=== PATIENT | female | born 2000 | race Caucasian/White ===

== ENCOUNTER 2021-10-06 14:57 | Emergency (ER) | payer OTHER, SELFPAY ==
--- NOTE | ~2021-10-06 | XR_ITS ---
EXAMINATION: XR chest 2V DATE: 10/06/2021 17:28 INDICATION: Shortness of breath TECHNIQUE: PA and lateral views of the chest are obtained. COMPARISON: None available FINDINGS: The lungs are free of acute opacities. No pleural effusion or pneumothorax. The cardiomedia stinal silhouette is normal. The visualized bones and soft tissues are unremarkable. IMPRESSION: 1. No acute cardiopulmonary abnormality. Reviewed, dictated and finalized at location B.
[2021-10-06 15:17] VITALS: BP 133/65; PULSE 76; RESP 20; TEMP 37.2; O2SAT 100
--- NOTE | 2021-10-06 15:20 | ECG_ITS ---
Measurements Intervals [place] Rate: 68 P: 46 ME: 174 QRS: 19 QRSD: 90 T: -1 QT: 356 QTc: 379 Interpretive Statements SINUS RHYTHM WITH SINUS ARRHYTHMIA LOW QRS VOLTAGE IN PRECORDIAL LEADS BORDERLINE ST-T WAVE ABNORMALITY- INFERIOR LEADS BORDERLINE ECG Electronically Signed On 10-06-2021 15:32:28 CDT by Andrew Zhang D.O.
[2021-10-06 15:35] LABS: Basophils Absolute Auto 0.1 K/mm3 (0.0-0.1); Basophils Percent Auto 0.5 % (0.2-1.2); Eosinophils Absolute Auto 0.1 K/mm3 (0-0.3); Eosinophils Percent Auto 1.3 % (0-4.4); Hematocrit 39.8 % (37.0-47.0); Hemoglobin 13.5 g/dL (12.0-15.0); Immature Granulocyte Absolute 0.04 K/mm3 (0.00-0.031); Immature Granulocyte Percent A 0.4 % (0-0.5); Lymphocytes Absolute Auto 1.87 K/mm3 (0.9-3.2); Lymphocytes Percent Auto 17.8 % (18.3-44.2); Mean Corpuscular HGB Conc 33.9 g/dl (32-36); Mean Corpuscular Hemoglobin 33.2 pg (26-34); Mean Corpuscular Volume 97.8 fl (80-100); Mean Platelet Volume 9.7 fl (7.4-10.4); Monocytes Absolute Auto 1.1 K/mm3 (0.1-0.6); Monocytes Percent Auto 10.6 % (2.6-8.5); Neutrophils Absolute Auto 7.3 K/mm3 (1.3-6.7); Neutrophils Percent Auto 69.4 % (45.5-73.1); Platelet Count Result 345 k/mm3 (150-375); Red Blood Count 4.07 M/mm3 (4.2-5.4); Red Cell Distribution Width 12.2 % (11.5-14.5); White Blood Count 10.5 K/mm3 (4.5-10.0)
--- NOTE | 2021-10-06 15:45 | ED.DIZZY ---
HPI - Dizziness General Chief Complaint: Dizziness Stated Complaint: sob, weakness Time Seen by Provider: 10/06/21 15:35 History of Present Illness HPI Narrative: 20-year-old female presents the emergency room with intermittent episodes of dizziness, lightheadedness, chest pressure, shortness of breath, and rashes on lower extremities. Patient states she has been experiencing intermittent left chest pain that is worse with activity for 6 months, and has been told to follow-up with cardiology. Patient is status post thyroidectomy and is on Synthroid. Patient was recently seen in her primary care's office for her symptoms, and was told to follow-up with rheumatology due to positive FLORENCIO lab test. Patient denies any new or changes to her existing medications. Denies fever. Patient states there is no alleviating or aggravating actors to her dizziness. Denies head injury. Related Data Allergies Allergy/AdvReac Type Severity Reaction Status Date / Time adhesive tape Allergy Intermediate Rash Verified 10/06/21 15:49 lactose AdvReac Intermediate Diarrhea Verified 10/06/21 15:49 Review of Systems Review of Systems: CONSTITUTIONAL: Denies fever, chills, or sweats. EYES: Denies visual changes, redness, or discharge. ENT: Denies rhinorrhea, congestion, sore throat, or otalgia. CARDIOVASCULAR: Reports chest pain RESPIRATORY: Denies cough or dyspnea. GASTROINTESTINAL: Denies abdominal pain, nausea, vomiting, or diarrhea. GENITOURINARY: Denies dysuria or hematuria. SKIN: Reports rash on lower extremities MUSCULOSKELETAL: Denies back pain, joint pain, or myalgia. NEUROLOGIC: Reports dizziness PSYCHIATRIC: Reports anxiety and depression. Exam Narrative: GENERAL: Well-appearing, well-nourished, no physical limitations, and in no acute distress. HEAD: Normocephalic, atraumatic. EYES: Conjunctivae normal, PERRLA and EOMI. ENT: External nose normal, Nares clear, no rhinorrhea or epistaxis. Mucous membranes moist. Oropharynx without tonsillar hypertrophy exudate or other lesions. External ears normal, bilateral TMs normal bilaterally NECK: Supple. No meningeal signs. No adenopathy or masses. No carotid bruits or JVD CHEST: Clear to auscultation. No respiratory distress. No wheezes rales or rhonchi. No tenderness. HEART: Regular rate and rhythm. No murmur heard. Normal peripheral pulses EXTREMITIES: Normal range of motion. No edema. No clubbing or cyanosis SKIN: Lenticular rash of bilateral lower extremities NEURO: No focal deficits. Alert and oriented x3. MAEW. CN's II-XI intact bilaterally, normal gait PSYCH: Cooperative. Tearful. Normal mood and affect. Course Vital Signs Vital signs: Vital Signs Temperature 37.2 C 10/06/21 15:17 Pulse Rate 76 10/06/21 15:17 Respiratory Rate 20 10/06/21 15:17 Blood Pressure 133/65 10/06/21 15:17 Pulse Oximetry 100 10/06/21 15:17 Oxygen Delivery Room Air 10/06/21 15:17 Temperature 37.2 C 10/06/21 15:17 Pulse Rate 67 10/06/21 19:28 Respiratory Rate 16 10/06/21 19:28 Blood Pressure 121/91 H 10/06/21 19:28 Pulse Oximetry 96 10/06/21 19:28 Oxygen Delivery Room Air 10/06/21 15:17 MDM - Dizziness MDM Narrative Medical decision making narrative: 89-[id number]-year-old female presented the emergency room with multiple chronic complaints. Dizziness is more consistent with a peripheral cause. EKG showed no signs of ischemic disease. Chest there is no history of trauma, no red flag features concerning for central vertigo. 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 Chest x-ray showed no acute cardiopulmonary findings. Troponin was negative. Electrolytes showed no concern for hepatobiliary disease, kidney disease. Lab Data Result diagrams: 10/06/21 15:27 10/06/21 15:27 Labs: Lab Results 10/06/21 10/06/21 10/06/21 Range/Units 15:27 15:27 15:27 WBC 10.5
[2021-10-06 15:46] LABS: Alanine Aminotransferase 18 U/L (6-35); Albumin Level 4.4 g/dL (3.5-5.1); Alkaline Phosphatase 43 U/L (38-126); Anion Gap 7 mmol/L (8-16); Aspartate Amino Transferase 24 U/L (14-36); Bilirubin,Total 0.7 mg/dL (0.2-1.3); Blood Urea Nitrogen 14 mg/dL (7-17); Calcium 8.1 mg/dL (8.4-10.2); Carbon Dioxide 25 mmol/L (22-30); Chloride 106 mmol/L (98-107); Estimated CRCL calculation 110 ml/min; Estimated Glomerular Filt Rate > 60; Glucose 105 mg/dL (65-110); Potassium 4.1 mmol/L (3.4-5.0); Sodium 138 mmol/L (137-145)
[2021-10-06 17:09] LABS: CRP < 0.5 mg/dL (<1.0)
[2021-10-06 17:09] LABS: Partial Thromboplastin Time 25.8 SECONDS (22.3-36.8); Prothrombin Time 12.5 Seconds (11.1-14.7)
[2021-10-06 17:13] VITALS: BP 123/77; PULSE 84; RESP 19; O2SAT 97
[2021-10-06 17:34] LABS: Erythrocyte Sedimentation Rate 14 mm/hr (0-20)
[2021-10-06 17:41] LABS: Appearance Urine Clear (Clear); Bilirubin Urine Negative (Negative); Blood Urine Negative (Negative); Color Urine Yellow (Yellow); Glucose Urine UA Negative (Negative); Ketones Urine Negative (Negative); Leukocyte Esterase Ur Negative LEU/UL (Negative); Nitrate Urine Negative (Negative); Protein Urine Negative (Negative); Specific Grav Ur 1.015 (1.001-1.035); Urobilinogen Urine 0.2 mg/dL (<2.0)
[2021-10-06 17:42] LABS: Add Urine Microscopic? NO
[2021-10-06 18:07] LABS: Troponin I < 0.012 ng/mL (0.000-0.034)
[2021-10-06 19:28] VITALS: BP 121/91; PULSE 67; RESP 16; O2SAT 96
== END 2021-10-06 19:19 | disposition home or self-care (01) ==
PROVIDERS: Emergency Medicine; Emergency Provider Nurse Practitioner Family; PCP Family Medicine
DX: R42 Dizziness and giddiness (principal); R07.9 Chest pain, unspecified
CPT/HCPCS: 36415; 71046; 80053; 81003; 81025; 84443; 84484; 85025; 85610; 85652; 85730; 86140; 93005; 99284

== ENCOUNTER 2024-05-29 13:01 | Outpatient (CLI) | payer OTHER, SELFPAY | END 2024-05-29 13:02 | disposition home or self-care (01) | LOC: ANHSURGERY 13:06 | PROVIDERS: PCP Family Medicine; Visit Provider Obstetrics & Gynecology | DX: Z01.818 Encounter for other preprocedural examination (principal); I10 Essential (primary) hypertension; R00.0 Tachycardia, unspecified; N94.6 Dysmenorrhea, unspecified | CPT/HCPCS: 36415; 86850; 86900; 86901; 93005 ==

== ENCOUNTER 2024-06-06 01:09 | Day surgery (SDC) | payer OTHER, SELFPAY ==
[2024-05-26 15:44] VITALS: BMI 40.6
--- NOTE | 2024-05-26 15:58 | PC.NURSE ---
Report to the Outpatient Waiting Room, entrance under the green pavilion located off [facility], at time __0830am on date ___06/06/24 ____. Planned Procedure Time: _1030am .? Time changes happen often and if your time is changed the preop area will call you the afternoon before. - You and your visitor will be asked to self-screen and do not enter if you have any COVID symptoms. Please call surgeon if you need to reschedule. - A mask is optional within the hospital at this time. Patients may have clear liquids (water, carbonated beverages, clear teas, apple juice) until 3 hours prior to surgery with a maximum of 20 ounces. - No food from midnight until time of surgery and no smoking, or chewing tobacco (or any form of nicotine). No chewing gum, candy or mints. (0730am) - Take only the following medications with a SIP of water on the morning of surgery: Amlodipine, Atenolol, Levothyroxine. DO NOT STOP ANY OF YOUR OTHER PRESCRIPTION MEDICATIONS PRIOR TO SURGERY EXCEPT THE FOLLOWING Hold all vitamins and supplements for 3 days per anesthesiologist. Medications to discontinue per physician ____None Date to take last dose____None Please no make-up, nail maltese, hairspray, perfume, deodorant, or body powder the day of surgery.? No jewelry (including any body piercings) or valuables the day of surgery, leave them at home.? Please take a shower or bath the night before, or the morning of, surgery with an antibacterial soap.? Wear comfortable, loose fitting clothing.? - Jewelry must be removed prior to entering the operating room.? Rings and piercings that are not removed may be cut off. - The hospital will not accept responsibility for valuables.? - Please leave all valuables, including medications, at home the day of surgery. If you are going home after surgery, a licensed limo driver must drive you home.? - NO public transportation without another adult if you receive anesthesia. - We recommend that an adult stay with you for 24 hours following discharge. - We also recommend that you do not drive, make important decision, drink alcoholic beverages, or take any drugs that were not prescribed by your health care provider for at least 24 hours after your discharge time. Follow any additional instructions given to you from your surgeon. Telephone instructions given to __Patient and asked if any additional questions and then verbalized understanding. Patient advised to call surgeon office or pre surgery nurse liaison [phone] if any additional questions.
--- NOTE | 2024-06-04 07:13 | PM.IMHP ---
H&P: HPI History of Present Illness Date/Time: 06/04/24 07:13 Chief Complaint: The patient complains of dyspareunia pelvic pain and dysmenorrhea Narrative: This is a 23-year-old 0 admitted for diagnostic laparoscopy secondary to pelvic pain. She does take thyroid medicine but has been euthyroid. She had an ultrasound which showed a fair amount of clear fluid and she has been in and out of the emergency department. She is frustrated once no is going she will undergo diagnostic laparoscopy. Risks and benefits were reviewed including but exclusive of , aspiration pneumonia, bleeding, transfusion, perforation injury to bowel, bladder, ureters, or other internal organs with need for open laparotomy repair. She received the AC handout entitled laparoscopy. She had all questions answered. She asked to proceed. Review of Systems Review of Systems: CONSTITUTIONAL: Denies fever, chills, or sweats. EYES: Denies visual changes, redness, or discharge. ENT: Denies rhinorrhea, congestion, sore throat, or otalgia. CARDIOVASCULAR: Reports chest pain RESPIRATORY: Denies cough or dyspnea. GASTROINTESTINAL: Denies abdominal pain, nausea, vomiting, or diarrhea. GENITOURINARY: Denies dysuria or hematuria. SKIN: Reports rash on lower extremities MUSCULOSKELETAL: Denies back pain, joint pain, or myalgia. NEUROLOGIC: Reports dizziness PSYCHIATRIC: Reports anxiety and depression. [facility] Social History Social History Smoking packs per day: 1 Smoking cigarettes per day: 20.0 Years smoked: 4 Smoking pack-years: 4.00 Smoking status: Former smoker Tobacco type: cigarettes Smoking end date: 04/02/20 Additional smoking assessment comments: Vapes now, vrs smoking Alcohol intake: never Substance use type: marijuana and other Other substance usage details: Vapes and Marijuana smokes daily Living arrangements: with family Additional living arrangements comments: Brother Spiritual care concerns: No Meds Home Medications and Allergies Home Medications ?Medication ?Instructions ?Recorded ?Confirmed ?Type amlodipine 10 mg tablet 10 mg PO DAILY 05/26/24 05/26/24 History atenolol 50 mg tablet 50 mg PO Q24H 05/26/24 05/26/24 History levothyroxine 200 mcg tablet 200 mcg PO DAILY 05/26/24 05/26/24 History levothyroxine 25 mcg tablet 25 mcg PO DAILY 05/26/24 05/26/24 History naproxen 500 mg tablet 500 mg PO Q8H 05/26/24 05/26/24 History olanzapine 7.5 mg tablet 7.5 mg PO QPM 05/26/24 05/26/24 History sertraline 100 mg tablet 100 mg PO Q24H 05/26/24 05/26/24 History Allergies Allergy/AdvReac Type Severity Reaction Status Date / Time adhesive tape Allergy Intermediate Rash Verified 05/26/24 15:38 lactose AdvReac Intermediate Diarrhea Verified 05/26/24 15:38 Exam Const: General: cooperative, comfortable and obese Orientation/consciousness: oriented to person, oriented to place and oriented to time HENMT: Head: normal to inspection Resp: Effort & Inspection: normal respiratory effort Cardio: Rate: regular rate Rhythm: regular rhythm Heart sounds: S1 normal heart sound present and S2 normal heart sound present GI: Inspection: normal to inspection : External Female Exam: normal external appearance Speculum Exam - Vagina: normal appearance of the vagina Speculum Exam - Cervix: normal appearance of the cervix Bimanual exam- vagina & uterus: Cervical tenderness present Bimanual Exam- Adnexa, other: tender bilaterally Assessment and Plan Assessment and plan (1) Pelvic pain: Code(s): R10.2 - Pelvic and perineal pain Status: Acute (2) Dyspareunia: Status: Acute (3) Dysmenorrhea: Code(s): N94.6 - Dysmenorrhea, unspecified Status: Acute Plan Proceed with diagnostic laparoscopy
[2024-06-06] VITALS (11 sets, daily range): BP systolic 103–123; BP diastolic 66–93; PULSE 60–86; RESP 14–21; TEMP 35.8–36.1; O2SAT 96–100
--- OUTSIDE RECORDS SUMMARY | 2024-06-06 01:17 | XMS_ITS | Encounter Summary ---
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 Name Role Phone Garrett Sanders MD Primary Care Provider [phone] Encounter Details Date Type Department Care Team (Late st Contact Info) Description 06/02/2024 Results Follow-Up [facility] Family Medicine at [address] [place] [address] Garrett Sanders MD [address] [place] [address] [address] [place] [address] Social History Tobacco Use Types Packs/Day Years Used Date Smoking Tobacco: Former Cigarettes Q uit: 07/2021 Vaping Smokeless Tobacco: Never Alcohol Use Standard Drinks/Week Comments Yes 0 (1 standard drink = 0.6 oz pur e alcohol) occ AUDIT-C Answer Date Recorded Q1: How often do you have a drink containing alcohol? Never 12/13/2023 Q2: How many drinks containi ng alcohol do you have on a typical day when you are drinking? Patient does not drink Q3: How often do you have si x or more drinks on one occasion? Never 12/13/2023 PHQ-2 Answer Date Recorded PHQ-2 Total Score (If total score is 3 or more points, staff should administer the PHQ-9) 0 12/13/2023 PHQ-9 Answer Date Recorded PHQ-9 Total Score 0 12/13/2023 Personal Safety Answer Date Recorded Have you ever been in or are you currently in a harmful physical or emotional relationship or is someone making you feel afraid or unsafe? 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
--- OUTSIDE RECORDS SUMMARY | 2024-06-06 01:17 | XMS_ITS | Data Portability ---
Author Organization [facility] [place] Address [address] [place] [address] Assessment Encounter Date Assessment Date Assessment LastModified by Organization Details LastModified Time 10/11/2022 10/11/2022 Annual gynecological exam performed. Patient will come back in a year unless there are new symptoms. [email or web address] Not available 10/11/2022 11:29:24 03/23/2023 03/23/2023 Unbillable. IUD not due to be removed [email or web address] Not available 03/27/2023 09:10:45 Plan of Treatment Reminders Order Date Submit Date Provider Last Modified By Organization Details Last Modified Time Details Appointments None recorded. Lab hsv-2 igg Ab, serum 2023 [facility] (Lab), [address] [place], [address], 4 02:06:20 hbcab (hepatitis B core Ab) igm, serum 2023 [facility] (Lab), [address] [place], [address], 4 02:06:20 HBsAg (hepatitis B surface Ag), serum 2023 [facility] (Lab), [address] [place], [address], 4 02:06:17 hepatitis C virus Ab, serum 2023 024 [facility] (Lab), [address], [place], [address], 4 02:06:18 HIV 1+2 AB + HIV 1 p24 Ag, qualitative immunoassay , serum 2023 024 [facility] (Lab), [address], [place], [address], 4 02:06:17 RPR (rapid plasma reagin), serum 2023 024 [facility] (Lab), [address], [place], [address], 4 02:06:20 CBC w/ auto diff 2023 024 [facility] (Lab), [address], [place], [address], 4 02:06:16 dhea-sulfat e, serum 2023 024 [facility] (Lab), [address] [facility] [address], [place], [address], 4 02:06:17 hormone panel, serum or plasma 2023 024 [facility] (Lab), [address], [place], [address], 4 02:06:19 progesteron e, serum 2023 024 [facility] (Lab), [address], [place], [address], 4 02:06:18 prolactin, serum 2023 024 [facility] (Lab), [address], [place], [address], 4 02:06:18 shbg (sex hormone-bin ding globulin), serum 2023 024 [facility] (Lab), [address] [facility] [address], [place], [address], 4 02:06:18 TSH, serum or plasma 2023 024 [facility] (Lab), [address], [place], [address], 4 02:06:19 testosteron e free/testos terone total, ratio, serum 2023 024 [facility] (Lab), [address] [facility] [address], [place], [address], 4 02:06:20 urinalysis, dipstick 2022 023 [email or web address] [facility] [place], [address], [address], [place], [address], 3 11:45:12 Referral None recorded. Procedures None recorded. Surgeries laparoscopy , diagnostic (SURG) 2024 025 [facility], [address] [facility] [address], [place], [address], 5 14:34:35 Imaging US, pelvis [address], [address], [address], [place], [address], 4 20:23:49 US, transvagina l [address], [address], [place], [address], 4 20:23:49 Medication Orders Macrobid 100 mg capsule 2022 023 [id number], [address], [place], [id number], 4 16:18:20 Patient TargetsNo targets recorded. Patient InstructionsNo instructions recorded. Reason for Referral None Reported. Results Created Date Observation Date Name Description Value Unit Range Abnormal Flag Note LastModifiedBy Organization Detail LastModifiedTime 10/12/19 23 10/11/2022 IMAGE GUIDE D PAP, REFLE X HPV IF ASCUS ONLY image guided Pap, reflex HPV ASCUS only SEE RESULT S BELOW CASE REPOR T: Cytol ogy Gynec ologi lakisha Repor t Case: [id number] Autho jaky bajwa Provi sosa: Librado donaldson , Rose Haro cted: 10/11 1338 [employer] Order ing Locat ion: [place] Patho logy Recei thu: 10/12 1241 First Scree n: Winsome Hagan ica Rescr een: Manjinder gaston, Carlito wright, CT Speci men: Scree peggy Pap - Image d, Cervi x STATE MENT OF ADEQU ACY: Satis facto ry for evalu ation Trans forma tion zone compo nent absen t The absen ce of an endoc ervic al compo nent was confi rmed by an addit ional scree ner. FINAL DIAGN OSIS: Negat donnie for Intra epith elial Lesio n or Delvin arce (NIL) . Shift in alix sugge stive of bacte rial vagin osis. Elect jeet suarez jennifer d by Carlito Billy, CT on 2022 at 6:52 PM ----- ----- ----- ----- ----- ----- ----- ----- ----- ----- ----- ----- ----- ----- ----- ----- ----- ---- COMME NT: This speci men was revie wed by a Cytot echno logis t and/o r Patho logis t (as indic ated in this repor t) after evalu ation using the Thinp rep Imagi ng Syste m. CLINI LAKISHA INFOR MATIO N: Menst rual Statu s: LMP (if appli cable ): Clini lakisha Histo ry/Pr eviou s Pap: Type of Neopl parish (if appli cable ): Signi fican t Clini alkisha Findi ngs: Other Histo ry: Hormo sary (if appli cable ): PAP EDUCA DIANA L NOTE: The Pap Test is a scree peggy test with an inher ent false negat donnie rate. Liqui d-bas ed sampl ing may decre ase, but will not elimi jim, false negat donnie resul ts. A negat donnie resul t does not precl ude the prese nce and/o r devel opmen t of disea se, since the prese nce of abnor mal cells in the sampl e depen ds on the locat ion of the lesio n and sampl ing techn ique. Rogelio nued regul ar scree peggy is the best metho d of cance r preve ntion . If repor carol cytol ogic findi ng do not corre late with physi lakisha and/o r histo rical findi ngs, furth er inves tigat ion is recom valentín d, as clini karli warra nted. Not Available [facility] (Lab) [address] [facility], [place], [address], 10/13/2022 19:56:22 10/12/19 23 10/11/2022 TRICH OMONA S VAGIN CUCA (RRNA ) trichomonas vaginalis ribosomal RNA (rrna) Negati ve negati ve Not Available [facility] (Lab) [address] [facility] [address], [place], [address], 10/13/2022 19:56:23 10/12/19 23 10/11/2022 CT/GC (STEFANY) , THINP REP VIAL chlamydia trachomatis, PCR Negati ve negati ve Not Available [facility] (Lab) [address] [place], [address], 10/13/2022 19:56:24 10/12/19 23 10/11/2022 CT/GC (STEFANY) , THINP REP VIAL neisseria gonorrhoeae, PCR Negati ve negati ve Not Available [facility] (Lab) [address], [place], [address], 10/13/2022 19:56:24 10/12/19 23 10/11/2022 urina lysis , dipst ick Protein trace Not Available [place] [address], [place], [address], 10/11/2022 11:34:25 10/12/19 23 10/11/2022 urina lysis , dipst ick pH 5 Not Available [place] [address], [place], [address], 10/11/2022 11:34:25 10/12/19 23 10/11/2022 urina lysis , dipst ick Specific Crowley 1.015 Not Available [facility] [address], [place], [address], 10/11/2022 11:34:25 03/12/20 24 03/12/2024 CT/GC AND TRICH OMONA S VAGIN CUCA (RRNA ), URINE chlamydia trachomatis, PCR Negati ve negati ve Not Available [facility] (Lab) [address], [place], [address], 03/13/2024 13:33:23 03/12/20 24 03/12/2024 CT/GC AND TRICH OMONA S VAGIN CUCA (RRNA ), URINE neisseria gonorrhoeae, PCR Negati ve negati ve Not Available [facility] (Lab) [address], [place], [address], 03/13/2024 13:33:23 03/12/20 24 03/12/2024 CT/GC AND TRICH OMONA S VAGIN CUCA (RRNA ), URINE trichomonas vaginalis ribosomal RNA (rrna) Negati ve negati ve Not Available [facility] (Lab) [address], [place], [address], 03/13/2024 13:33:23 03/12/20 24 03/12/2024 CBC W/DIF F WBC 10.2 10'3/ uL 3.5-10 .5 Not Available [facility] (Lab) [address], [place], [address], 03/18/2024 02:06:16 03/12/20 24 03/12/2024 CBC W/DIF F RBC 4.76 10'6/ uL (based on docume nted legal sex) 3.80-5 .20 Not Available [facility] (Lab) [address], [place], [address], 03/18/2024 02:06:16 03/12/20 24 03/12/2024 CBC W/DIF F HGB 15.1 g/dL (based on docume nted legal sex) 11.6-1 5.4 Not Available [facility] (Lab) [address], [place], [address], 03/18/2024 02:06:16 03/12/20 24 03/12/2024 CBC W/DIF F HCT 46.6 % (based on docume nted legal sex) 34.0-4 5.0 high Not Available [facility] (Lab) [address], [place], [address], 03/18/2024 02:06:16 03/12/20 24 03/12/2024 CBC W/DIF F MCV 97.9 fL 80.0-9 9.0 Not Available [facility] (Lab) [address], [place], [address], 03/18/2024 02:06:16 03/12/20 24 03/12/2024 CBC W/DIF F MCH 31.7 pg 27.0-3 4.0 Not Available [facility] (Lab) [address], [place], [address], 03/18/2024 02:06:16 03/12/20 24 03/12/2024 CBC W/DIF F MCHC 32.4 g/dL 32.0-3 5.5 Not Available [facility] (Lab) [address], [place], [address], 03/18/2024 02:06:16 03/12/20 24 03/12/2024 CBC W/DIF F RDW 12.9 % 11.0-1 5.0 Not Available [facility] (Lab) [address], [place], [address], 03/18/2024 02:06:16 03/12/20 24 03/12/2024 CBC W/DIF F plt 419 10'3/ uL 150-40 0 high Not Available [facility] (Lab) [address], [place], [address], 03/18/2024 02:06:16 03/12/20 24 03/12/2024 CBC W/DIF F MPV 10.5 fL 8.8-12 .1 Not Available [facility] (Lab) [address], [place], [address], 03/18/2024 02:06:16 03/12/20 24 03/12/2024 CBC W/DIF F NRBC's 0.0 % 0.0 Not Available [facility] (Lab) [address], [place], [address], 03/18/2024 02:06:16 03/12/20 24 03/12/2024 CBC W/DIF F absolute NRBCs 0.0 10'3/ uL no refere nce range establ ished Not Available [facility] (Lab) [address], [place], [address], 03/18/2024 02:06:16 03/12/20 24 03/12/2024 CBC W/DIF F neutrophils 62.8 % 34.0-7 3.0 Not Available [facility] (Lab) [address], [place], [address], 03/18/2024 02:06:16 03/12/20 24 03/12/2024 CBC W/DIF F lymphocytes 24.6 % 15.0-5 0.0 Not Available [facility] (Lab) [address], [place], [address], 03/18/2024 02:06:16 03/12/20 24 03/12/2024 CBC W/DIF F monocytes 9.7 % 1.0-15 .0 Not Available [facility] (Lab) [address], [place], [address], 03/18/2024 02:06:16 03/12/20 24 03/12/2024 CBC W/DIF F eosinophils 1.4 % 0.0-8. 0 Not Available [facility] (Lab) [address], [place], [address], 03/18/2024 02:06:16 03/12/20 24 03/12/2024 CBC W/DIF F basophils 1.0 % 0.0-2. 0 Not Available [facility] (Lab) [address] [facility], [place], [address], 03/18/2024 02:06:16 03/12/20 24 03/12/2024 CBC W/DIF F immature granulocytes 0.5 % no define d refere nce range Not Available [facility] (Lab) [address] [place], [address], 03/18/2024 02:06:16 03/12/20 24 03/12/2024 CBC W/DIF F absolute neutrophils 6.4 10'3/ uL 1.5-8. 0 Not Available [facility] (Lab) [address] [place], [address], 03/18/2024 02:06:16 03/12/20 24 03/12/2024 CBC W/DIF F absolute lymphocytes 2.5 10'3/ uL 1.0-4. 0 Not Available [facility] (Lab) [address], [place], [address], 03/18/2024 02:06:16 03/12/20 24 03/12/2024 CBC W/DIF F absolute monocytes 1.0 10'3/ uL 0.2-1. 0 Not Available [facility] (Lab) [address] [facility] [address], [place], [address], 03/18/2024 02:06:16 03/12/20 24 03/12/2024 CBC W/DIF F absolute eosinophils 0.1 10'3/ uL 0.0-0. 6 Not Available [facility] (Lab) [address], [place], [address], 03/18/2024 02:06:16 03/12/20 24 03/12/2024 CBC W/DIF F absolute basophils 0.1 10'3/ uL 0.0-0. 3 Not Available [facility] (Lab) [address], [place], [address], 03/18/2024 02:06:16 03/12/20 24 03/12/2024 CBC W/DIF F absolute immature granulocytes 0.1 10'3/ uL 0.00-0 .10 03/13 2:22 AM: P indic ates parti al resul ts on a panel have been relea sed. Addit ional resul ts will follo w. 03/13 2:22 AM: This resul t has been final verif ied. No addit ional or daily ed resul ts are expec carol. Not Available [facility] (Lab) [address], [place], [address], 03/18/2024 02:06:16 03/12/20 24 03/12/2024 HEPAT ITIS B SURFA CE ANTIG EN hepatitis B surface antigen Non-re active non-re active This assay was perfo rmed using [employer] ratio n reage nts and test kits. Value s obtai coar with other assay metho ds or kits canno t be used inter daily eagayley . Not Available [facility] (Lab) [address], [place], [address], 03/18/2024 02:06:17 03/12/20 24 03/12/2024 HIV 1/2 ANTIG EN/AN TIBOD Y, REFLE X CONFI RMATI ON HIV antigen/anti body Nonrea ctive nonrea ctive HIV-1 antig en and HIV-1 /HIV- 2 antib odies were not detec carol. No labor atory evide nce of HIV infec tion. Not Available [facility] (Lab) [address], [place], [address], 03/18/2024 02:06:17 03/12/20 24 03/12/2024 DHEA SULFA TE DHEA-sulfate 144 ug/dL Femal e Range s Age(y ) Range (ug/d L) 10-15 34-28 0 15-20 65-36 8 20-25 148-4 07 25-35 99-34 0 35-45 61-33 7 45-55 35-25 6 55-65 19-20 5 65-75 9-246 > 75 12-15 4 Not Available [facility] (Lab) [address] [facility], [place], [address], 03/18/2024 02:06:17 03/12/20 24 03/12/2024 HEPAT ITIS C ANTIB ANIKET SCREE N, REFLE X TO CONFI RMATI ON hepatitis C antibody Non-re active non-re active Antib odies to HCV Not Detec carol, does not exclu de the possi bilit y of expos ure to HCV. Not Available [facility] (Lab) [address], [place], [address], 03/18/2024 02:06:18 03/12/20 24 03/12/2024 HUMAN SEX HORMO NE HANNAH NG GLOBU [place] sex hormone binding globulin 16.8 nmole s/L 18.2-1 35.5 low Not Available [facility] (Lab) [address], [place], [address], 03/18/2024 02:06:18 03/12/20 24 03/12/2024 PROLA CTIN prolactin, total 25.70 NG/mL 4.79-2 3.30 high This assay was perfo rmed using [employer] reage nts and test kits. Value s obtai cora with other assay metho ds or kits canno t be used inter [facility] . Not Available [facility] (Lab) [address] [place], [address], 03/18/2024 02:06:18 03/12/20 24 03/12/2024 PROGE STERO NE progesterone 6.69 NG/mL This assay was perfo rmed using [employer] n reage nts and test kits. Value s obtai cora with other assay metho ds or kits canno t be used inter [facility] . Femal e Proge stero ne Range s: Folli cular phase 0.06- 0.89 ng/mL Ovula tion phase 0.12- 12.00 ng/mL Lutea l phase 1.83- 23.90 ng/mL Postm enopa usal <0.05 -0.13 ng/mL Healt hy Pregn ant Women 1st Trime ster 11.0- 44.30 2nd Trime ster 25.40 -83.3 0 3rd Trime ster 58.70 -214. 00 Not Available [facility] (Lab) [address] [place], [address], 03/18/2024 02:06:18 03/12/20 24 03/12/2024 FSH, LH, ESTRA DIOL estradiol 95.5 pg/mL This assay was perfo rmed using [employer] reage nts and test kits. Value s obtai cora with other assay metho ds or kits canno t be used inter [facility] . Femal e Estra diol Range s: Folli cular phase 12.4- 233 pg/mL Ovula tion phase 41.0- 398 pg/mL Lutea l phase 22.3- 341 pg/mL Postm enopa usal <5-13 8 pg/mL Healt hy Pregn ant Women 1st Trime ster 154-3 243 pg/mL 2nd Trime ster 1561- 47773 pg/mL 3rd Trime ster 8525- >3000 0 pg/mL Not Available [facility] (Lab) [address] [place], [address], 03/18/2024 02:06:19 03/12/20 24 03/12/2024 FSH, LH, ESTRA DIOL FSH 4.3 mIU/m L This assay was perfo rmed using [employer] n reage nts and test kits. Value s obtai cora with other assay metho ds or kits canno t be used inter daily eably . Femal es Folli cular : 3.5-1 2.5 mIU/m L Ovula tion: 4.7-2 1.5 mIU/m L Lutea l: 1.7-7 .7 mIU/m L Postm enopa use: 25.8- 134.8 mIU/m L Not Available [facility] (Lab) [address] [facility], [place], [address], 03/18/2024 02:06:19 03/12/20 24 03/12/2024 FSH, LH, ESTRA DIOL LH 9.6 mIU/m L This assay was perfo rmed using [employer] n reage nts and test kits. Value s obtai cora with other assay metho ds or kits canno t be used inter daily eably . Femal es Mid-F ollic ular: 2.4-1 2.6 mIU/m L Mid-C ycle: 14.0- 95.6 mIU/m L Mid-L uteal : 1.0-1 1.4 mIU/m L Postm enopa use: 7.7-5 8.5 mIU/m L Not Available [facility] (Lab) [address] [place], [address], 03/18/2024 02:06:19 03/12/20 24 03/12/2024 T4 FREE T4, free 0.77 NG/dL 0.60-1 .40 This assay is susce ptibl e to inter feren ce from high level s of bioti n which may false ly eleva te resul ts. Gifty carreno late with clini lakisha findi ngs. Not Available [facility] (Lab) [address] [facility], [place], [address], 03/18/2024 02:06:19 03/12/20 24 03/12/2024 TSH, REFLE X FREE T4 TSH 101.21 uIU/m L 0.30-5 .33 high Not Available [facility] (Lab) [address] [facility], [place], [address], 03/18/2024 02:06:19 03/12/20 24 03/12/2024 HERPE S SIMPL EX VIRUS TYPE 2 SPECI FIC AB, IGG herpes simplex virus 2 IgG Negati ve negati ve Not Available [facility] (Lab) [address] [facility], [place], [address], 03/18/2024 02:06:20 03/12/20 24 03/12/2024 HERPE S SIMPL EX VIRUS TYPE 2 SPECI FIC AB, IGG herpes simples virus 2 IgG, quant <0.2 ai 0.0-0. 8 Not Available [facility] (Lab) [address] [facility], [place], [address], 03/18/2024 02:06:20 03/12/20 24 03/12/2024 HEPAT ITIS B CORE, IGM hepatitis B core IgM antibody Non-re active non-re active IgM anti- HBc not detec carol. Does not exclu de the possi bilit y of expos ure to or infec tion with HBV. Not Available [facility] (Lab) [address] [facility], [place], [address], 03/18/2024 02:06:20 03/12/20 24 03/12/2024 RPR SCREE N, REFLE X TITER /CONF IRMAT ION RPR screen Nonrea ctive nonrea ctive Not Available [facility] (Lab) [address] [place], [address], 03/18/2024 02:06:20 03/12/20 24 03/12/2024 TESTO STERO NE, FREE( DIALY SIS) AND TOTAL (LC/M S/MS) testosterone , total 26 NG/dL 2-45 For addit ional infor gifty oliva e refer to http: //[facility] deena hancock.que stdia gnost ics.c om/fa q/ Total Testo stero neLCM SMSFA Q165 (This link is being provi ded for infor matio nal/ educa diana l purpo ses only. ) This test was devel oped and its genia tical perfo rmanc e nasra cteri stics have been deter mined by [employer] [place], [place]. It has not been clear ed or appro thu by the U.S. Food and Drug Admin istra tion. This assay has been valid ated pursu ant to the CLIA regul ation s and is used for clini lakisha purpo ses. Not Available [facility] (Lab) [address], [place], [address], 03/18/2024 02:06:20 03/12/20 24 03/12/2024 TESTO STERO NE, FREE( DIALY SIS) AND TOTAL (LC/M S/MS) testosterone , free 5.1 pg/mL 0.1-6. 4 This test was devel oped and its genia tical perfo rmanc e nasra cteri stics have been deter mined by [employer] [place], [place]. It has not been clear ed or appro thu by the U.S. Food and Drug Admin istra tion. This assay has been valid ated pursu ant to the CLIA regul ation s and is used for clini lakisha purpo ses. Perfo rming Organ izati on [facility] dem[facility] n: Site ID: AMD Name: [employer] annika Addre ss: [id number] [place], [place] Direc tor: Allegra Archibald MD PhD Not Available [facility] (Lab) [address], [place], [address], 03/18/2024 02:06:20 03/27/20 24 03/27/2024 PLATE LET COUNT plt 416 10'3/ uL 150-40 0 high Not Available [facility] (Lab) [address], [place], [address], 03/28/2024 05:46:43 03/27/20 24 03/27/2024 TSH TSH 81.15 uIU/m L 0.30-5 .33 high Not Available [facility] (Lab) [address] [facility], [place], [address], 03/28/2024 05:46:44 02/14/20 24 02/14/2024 US, pelvi s No observ ation record ed. [email or web address], [place], [address], 02/14/2024 18:05:32 02/14/20 24 02/14/2024 US, trans vagin al No observ ation record ed. [email or web address], [place], [address], 02/14/2024 18:05:41 02/14/20 24 02/14/2024 US, pelvi s No observ ation record ed. [email or web address] [address], [place], [address], 02/14/2024 20:20:04 Result Notes None recorded. Problems Name Problem SNOMED Code Status Onset Date Resolution Date Notes Provider Name and Address Organization Details Recorded Time Syphilis test finding 302354375 Completed 201809/22/2021 Encounter for STD screening ;Recorded Elsewhere : No Locati on: [facility] So urce: EHR Chron ic: N Practic e ID: [id number] Bill able Time: 01:15:00 PM Tanika Silver [place], [place] - [facility] 2 15:03:32 Finding of pattern of menstrua l cycle [id number] Completed 201509/22/2021 Menometro rrhagia;R ecorded Elsewhere : No Locati on: [facility] So urce: EHR Chron ic: N Practic e ID: [id number] Bill able Time: 10:30:00 AM Tanika [facility] 2 15:03:31 Pelvic and perineal pain [id number] Completed 201709/22/2021 Pelvic and perineal pain;Raghavendra rded Elsewhere : No Locati on: [facility] So urce: EHR Chron ic: N Practic e ID: [id number] Bill able Time: 11:00:00 AM Tanika [facility] 2 15:03:31 Insertio n of intraute rine contrace ptive device Completed 201709/22/2021 Encounter for insertion of intrauter ine contracep tive device;Re corded Elsewhere : No Locati on: [facility] So urce: EHR Chron ic: N Practic e ID: [id number] Bill able Time: 01:30:00 PM Tanika [facility] [address] 15:03:[address] Concept Completed 201709/22/2021 Encntr for routine child health exam w/o abnormal findings; Recorded Elsewhere : No Locati on: [facility] So urce: EHR Chron ic: N Practic e ID: [id number] Bill able Time: 10:30:00 AM Tanika [facility] 2 15:03:31 Localize d swelling , mass and lump, neck Completed 201709/22/2021 Localized swelling, mass and lump, neck;Raghavendra rded Elsewhere : No Locati on: [facility] So urce: EHR Chron ic: N Practic e ID: [id number] Bill able Time: 10:30:00 AM Tanika [facility] 2 15:03:[address] Concept Completed 201709/22/2021 Well woman check w/o abnormal finding;R ecorded Elsewhere : No Locati on: [facility] So urce: EHR Chron ic: N Practic e ID: [id number] Bill able Time: 10:30:00 AM Tanika Silver [facility] 2 15:03:31 Contrace ptive sheath status [id number] Completed 201809/22/2021 Encounter for routine checking of intrauter ine contracep tive device;Re corded Elsewhere : No Locati on: [facility] So urce: EHR Chron ic: N Practic e ID: [id number] Bill able Time: 09:45:00 AM Tanika Silver [facility] 2 15:03:31 Problem Notes None recorded. Procedures Surgical History Date Name Laterality Status Provider Name and Address Organization Details Recorded Time 3 Date of Last Pap Smear completed Kerri Delaney [facility] 03/12/2024 16:19:24 9 Thyroid Surgery completed Purnima Wallace [facility] 03/14/2022 17:28:33 Imaging Results Imaging Date Name Status LastModified by Organization Details LastModified Time 02/14/2024 US, pelvis completed [email or web address] [place] [address], [place], [address], 02/14/2024 18:05:32 02/14/2024 [email or web address] [address], [place], [address], 02/14/2024 18:05:41 02/14/2024 US, pelvis completed [email or web address] [place] [address], [place], [address], 02/14/2024 20:20:04 Procedure Notes None recorded. Medical Equipment None Reported. Allergies No known drug allergies Medications Name Sig Start Date Stop Date Status Note LastModified by Organization Details LastModified Time amoxicill in 500 mg capsule TAKE 1 CAPSULE BY MOUTH EVERY 12 HOURS FOR 10 DAYS 09/22 completed Not Available Not Available Not Available Mirena 21 mcg/24 hr (up to 8 years) 52 mg intrauter ine device Take by intraute rine route. 2012 active mirena inserted 03/22/20 18 will 03/22/20 23 Not Available Not Available Not Available levothyro xine 175 mcg tablet TAKE ONE TABLET BY MOUTH EVERY DAY 09/22 completed Not Available Not Available Not Available doxycycli ne hyclate 100 mg capsule 03/14 completed Not Available Not Available Not Available azithromy william 250 mg tablet TK 2 TS PO ON DAY 1, THEN TK 1 T PO D FOR 4 DAYS 03/14 completed Not Available Not Available Not Available clindamyc in HCl 75 mg capsule take 2 capsule by oral route every 6 hours 08/09 completed Prescrib ed Elsewher e: Yes Loca tion: Jessica [facility] odify By: marcelina hernadez DateTime : 05/20/19 16 10:30:00 AM Not Available Not Available Not Available fluconazo le 150 mg tablet TAKE 1 TABLET BY MOUTH EVERY DAY 10/11 completed Not Available Not Available Not Available valacyclo vir 1 gram tablet TAKE 1 TABLET BY MOUTH TWICE DAILY active Not Available Not Available No t Available hydrocodo ne 5 mg-acetam inophen 325 mg tablet TAKE 1 TABLET BY MOUTH EVERY 6 HOURS NEEDED FOR PAIN 09/22 completed Not Available Not Available Not Available fluconazo le 200 mg tablet TAKE 1 TABLET BY MOUTH EVERY OTHER DAY FOR 3 DOSES 10/11 completed Not Available Not Available Not Available meloxicam 15 mg tablet 09/22 completed Not Available Not Available Not Available metronida zole 0.75 % (37.5 mg/5 gram) vaginal gel INSERT ONE APPLICAT ORFUL VAGINALL Y AT BEDTIME FOR 5 DAYS 03/12 completed Not Available Not Available Not Available ondansetr on HCl 4 mg tablet TAKE 1 TABLET BY MOUTH EVERY 6 HOURS NEEDED FORNAUSE A AND VOMITING 10/11 completed Not Available Not Available Not Available famotidin e 40 mg tablet 03/14 completed Not Available Not Available Not Available prednison e 20 mg tablet TAKE 2 TABLETS BY MOUTH EVERY DAY FOR 5 DAYS 03/12 completed Not Available Not Available Not Available sertralin e 100 mg tablet active Not Available Not Available Not Available olanzapin e 5 mg tablet 03/14 completed Not Available Not Available Not Available permethri n 5 % topical cream APPLY GENEROUS LY FROM NECK DOWN COVERING ENTIRE BODY ONCE FOR 1 DAY. LEAVE ON FOR 8 HOURS AND WASH OFF. MAY REPEAT IN 1 WEEK 11/23 completed Not Available Not Available Not Available metronida zole 500 mg tablet TAKE 1 TABLET BY MOUTH EVERY 12 HOURS FOR 7 DAYS 10/11 completed Not Available Not Available Not Available amlodipin e 5 mg tablet 11/23 completed Not Available Not Available Not Available sulfameth oxazole 800 mg-trimet hoprim 160 mg tablet TAKE 1 TABLET BY MOUTH TWICE DAILY FOR 7 DAYS 10/11 completed Not Available Not Available Not Available olanzapin e 7.5 mg tablet TAKE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 ovarian syndrome. We talked about her male pattern hair growth. We talked about her sex hormones. We are going to measure sex hormones. Patient does not have a period with the Mirena IUD, therefore difficult to discern abnormal bleeding. I spent over 30 minutes on the patient's care in total. We talked about multiple complex issues that include pelvic pain, polycystic ovarian syndrome, sexually transmitted infection, diagnostic laparoscopy, the procedure itself. She is very she has to considering the clifford gnost ic laparoscopy. The patient understands the procedure. The procedure was described to the patient in great detail. the patient also understands the risks. The risks were also explained in detail. She understands that injuries May occur during surgery. She understands these injuries can result in hospitalization, more surgery, and severe illness. She understands there is risk of hemorrhage and infection. Cristian Ruelas MD [address], [place], [address], [facility] 04/10/2024 22:44:59 OBGyn Episode No OBEpisode recorded.
--- OUTSIDE RECORDS SUMMARY | 2024-06-06 01:17 | XMS_ITS | Clinical Summary ---
Author Organization [facility] Address [address] [place] [address] Phone Care Team Providers Care Air Export Coordinator Name Role Phone Giancarlo Yeh MD Primary Care Provider [phone] Allergies Active Allergy Reactions Criticality Noted Date Comments Amoxicillin Hives High 09/03/2021 Latex 05/10/2018 Added based on information entered during case entry, please review and add reactions, type, and severity as needed Unclassified Drug Rash,Other (See Comments) Low 05/13/2018 Medications busPIRone (BUSPAR) 7.5 mg Tablet Take 7.5 mg by mouth 2 times daily. 02/21/2021 Active sertraline (ZOLOFT) 100 mg tablet Take 100 mg by mouth daily. 04/27/2021 Active levothyroxine 200 mcg tablet Take 200 mcg by mouth daily. 06/07/2021 Active Active Problems Problem Noted Date Diagnosed Date Infectious mononucleosis without complication Leg mass, left 09/09/2018 Rash Sore throat Social History Tobacco Use Types Packs/Day Years Used Date Smoking Tobacco: Never Smokeless Tobacco: Never Alcohol Use Standard Drinks/Week Comments No 0 (1 standard drink = 0.6 oz pur e alcohol) Comments No Sex and Gender Information Value Date Recorded Sex Assigned at Not on file Legal Sex Female 3:42 PM CONTROLLED [employer]OS[employer] Gender Identity Not on file Sexual Orientation Not on file Last Filed Vital Signs Vital Sign Reading Time Taken Comments Blood Pressure 139/90 09/04/2021 11:39 AM CDT Pulse 93 09/04/2021 11:39 AM CDT Temperature 36.9 C (98.4 F) 09/04/2021 11:39 AM CDT Respiratory Rate 18 09/04/2021 11:39 AM CDT Oxygen Saturation 100% 09/04/2021 11:39 AM CDT Inhaled Oxygen Concentration - - Weight 122.5 kg (270 lb) 09/03/2021 8:13 PM CDT Height 175.3 cm (5' 9 ) 09/03/2021 8:13 PM CDT Body Mass Index 39.87 09/03/2021 8:13 PM CDT Plan of Treatment Health Maintenance Due Date Last Done Comments HPV VACCINES (2 - 2-dose series) 07/04/2011 01/03/20 11 CHLAMYDIA SCREENING (ANNUAL) 11-24 YEARS 12/26/2011 CERVICAL CANCER SCREENING 2021 INFLUENZA VACCINE (#1) 2023 DTAP/TDAP/TD VACCINES (7 - T d or Tdap) 02/16/2030 02/17/2020, 01/02/2011, 10/01/2006, Additional history exists HEPATITIS B VACCINES Completed 12/30/2002, 05/08/2001, 03/12/2001, Additional history exists Insurance [facility] MEDICAID [facility]ICA[facility] Advance Directives For more information, please contact: [phone] * Default Full Code - Needs Discussion (Latest Code Status on File) Date Activated Date Inactivated Comments 09/04/2021 8:56 AM 09/04/2021 2:27 PM * Full Code Date Activated Date Inactivated Comments 05/13/2018 1:26 PM 05/14/2018 11:46 AM Care Teams Air Export Coordinator Relationship Specialty Start Date End Date Giancarlo Yeh MD PCP - General Family Practice 09/03/21
--- OUTSIDE RECORDS SUMMARY | 2024-06-06 01:17 | XMS_ITS | Referral Summary ---
Author Organization [facility] Address [address] [place] [address] Care Team Providers Care Final Canoe Inspector Name Role Phone Garrett Sanders MD Primary Care Provider [phone] Encounters Date Type Department Care Team Description 06/02/2024 Results Follow-Up [facility] Medical [facility] Family Medicine at [address] [place] [phone] Garrett Sanders MD 05/28/2024 Results Follow-Up [facility] Medical [facility] Family Medicine at [address] [place] [phone] Garrett Sanders MD 05/28/2024 2:19 PM SURVEY WORKERS SUPERVISOR - 05/28/2024 11:59 PM SURVEY WORKERS SUPERVISOR Hospital Encounter [facility] [address] [place] [phone] Chronic pain of right knee Discharge Disposition: Discharge to home or self care 05/28/2024 2:10 PM SURVEY WORKERS SUPERVISOR Lab [facility] [address] [place] [phone] Postoperative hypothyroidism 05/23/2024 Nurse Triage [facility] Medical [facility] Family Medicine at [address] [place] [phone] Garrett Sanders MD 05/23/2024 Nurse Triage [facility] Family Medicine at [address] [place] [phone] Chata Sommer RN 05/22/2024 Telephone [facility] Gastroenterology at [address] [place] [address] Derrek Dangelo MD 05/12/2024 5:53 PM SURVEY WORKERS SUPERVISOR - 05/12/2024 6:26 PM [facility] Emergency [facility] Emergency Department [address] [place] [phone] Colitis (Primary Dx) Discharge Disposition: Discharge to home or self care 05/12/2024 Nurse Triage [facility] Family Medicine at [address] [place] [address] Garrett Sanders MD 04/15/2024 10:25 AM SURVEY WORKERS SUPERVISOR - 04/15/2024 12:56 PM [facility] Emergency Department [address] [place] [phone] Discharge Disposition: Left without being seen 03/19/2024 Telephone [facility] Family Medicine at [address] [place] [address] Garrett Sanders MD 3rd No Show Letter from Last 3 Months Allergies Active Allergy Reactions Criticality Noted Date Comments Amoxicillin Hives High 09/03/2021 Latex Rash Medium 05/10/2018 Added based on information entered during case entry, please review and add reactions, type, and severity as needed Added based on information entered during case entry, please review and add reactions, type, and severity as needed Medications triamcinolone (KENALOG) 0.1 % ointmentIndicatio ns:Rash and nonspecific skin eruption Apply topically 2 (two) times a day as needed for rash Do not use on face or groin 454 g 3 022 Active albuterol HFA (ProAir HFA) 90 mcg/actuation inhalerIndication s:SOB (shortness of breath) Inhale 2 puffs every 4 (four) hours as needed for wheezing or shortness of breath 3 each 4 022 Active levonorgestreL (Mirena) IUD Mirena 20 mcg/24 hours (8 yrs) 52 mg intrauterine device Take by intrauterine route. 013 Active lidocaine (LIDODERM) 5 % Place 1 patch on the skin daily for 5 days Remove & discard patch within 12 hours or as directed by MD. [address] (PROTONIX) 40 mg EC tabletIndications :Nausea Take 1 tablet (40 mg total) by mouth nightly 90 tablet 3 024 Active linaCLOtide (LINZESS) 145 mcg capsule Take 1 capsule (145 mcg total) by mouth daily 30 capsule 2 024 Active levothyroxine (SYNTHROID) 200 mcg tabletIndications :Postoperative hypothyroidism TAKE 1 TABLET(200 MCG) BY MOUTH DAILY 90 tablet [address] (VOLTAREN) 75 mg EC tabletIndications :Acute pain of right knee,Chronic pain of right ankle,Right foot pain Take 1 tablet (75 mg total) by mouth 2 (two) times a day 60 tablet 2 024 Active levothyroxine (SYNTHROID) 25 mcg tabletIndications :Post-surgical hypothyroidism TAKE 1 TABLET(25 MCG) BY MOUTH DAILY 90 tablet 024 Active amLODIPine (NORVASC) 10 mg tabletIndications :Benign essential HTN TAKE 1 TABLET(10 MG) BY MOUTH DAILY 100 tablet 1 024 Active traMADoL (ULTRAM) 50 mg tabletIndications :Arthralgia, unspecified joint Take 1 tablet (50 mg total) by mouth daily as needed for pain 30 tablet 5 024 2024 Active valACYclovir (VALTREX) 1 gram tablet Take 2 tabs (2000 mg) 2 times a days for 1 day. 4 tablet 5 024 Active naproxen (NAPROSYN) 500 mg tabletIndications :Chronic pain of right knee TAKE 1 TABLET(500 MG) BY MOUTH TWICE DAILY NEEDED FOR PAIN 30 tablet 1 024 Active atenoloL (TENORMIN) 50 mg tablet TAKE 1 TABLET(50 MG) BY MOUTH DAILY 100 tablet 1 024 Active sertraline (ZOLOFT) 100 mg tabletIndications :Moderate episode of recurrent major depressive disorder (HCC),Anxiety Take 1 tablet (100 mg total) by mouth daily 100 tablet 025 Active ciprofloxacin (CIPRO) 500 mg tablet Take 1 tablet (500 mg total) by mouth every 12 (twelve) hours 10 tablet Active dicyclomine (BENTYL) 20 mg tablet Take 1 tablet (20 mg total) by mouth every 6 (six) hours 20 tablet Active ondansetron ODT (ZOFRAN-ODT) 4 mg disintegrating tabletIndications :Nausea DISSOLVE 1 TABLET(4 MG) ON THE TONGUE EVERY 8 HOURS NEEDED FOR NAUSEA OR VOMITING 20 tablet 1 025 Active hydrocortisone 2.5 % cream APPLY TOPICALLY TO THE AFFECTED AREA TWICE DAILY 30 g Active OLANZapine (ZyPREXA) 7.5 mg tabletIndications :Anxiety,Moderate episode of recurrent major depressive disorder (HCC) Take 1 tablet (7.5 mg total) by mouth nightly 30 tablet Active hydrocortisone 2.5 % cream Apply topically 2 (two) times a day 30 g 024 2024 Discontinued ondansetron ODT (ZOFRAN-ODT) 4 mg disintegrating tabletIndications :Nausea Take 1 tablet (4 mg total) by mouth every 8 (eight) hours as needed for nausea or vomiting 20 tablet 1 024 2024 Discontinued OLANZapine (ZyPREXA) 7.5 mg tabletIndications :Anxiety,Moderate episode of recurrent major depressive disorder (HCC) TAKE 1 TABLET BY MOUTH EVERY NIGHT 100 tablet 1 024 2024 Discontinued(R eorder) sertraline (ZOLOFT) 100 mg tabletIndications :Moderate episode of recurrent major depressive disorder (HCC),Anxiety TAKE 1 TABLET(100 MG) BY MOUTH DAILY 100 tablet 024 2024 Discontinued(R eorder) metroNIDAZOLE (FLAGYL) 500 mg tablet Take 1 tablet (500 mg total) by mouth 2 (two) times a day for 7 days 14 tablet 025 2024 Active Problems Problem Noted Date Diagnosed Date Acute pain of right knee 12/13/2023 Blepharitis of right upper eyelid 02/14/2023 Assessment & Plan (02/14/2023 2:58 PM SURVEY WORKERS SUPERVISOR): Warm compresses every 4-6 hours for 5-10 minutes Frequent handwashing, lid massage Doxycycline po 100 mg BID x 7 days. Sunscreen use advised. Topical erythromycin ER for worsening, pain, streaking redness, worsening swelling, vision impairment Upper respiratory tract infection 02/14/2023 Assessment & Plan (02/14/2023 2:59 PM SURVEY WORKERS SUPERVISOR): Rapid strep negative Rapid covid, flu negative Sx duration 1 week Will be on doxy for blepharitis Tessalon prn Flonase 7-10 days Mucinex as cough expectorant 7-10 days Zyrtec or claritin 7-10 days PCP for persisting symptoms ER for CP, SOB Chronic pain of right ankle 11/18/2021 Essential hypertension 10/14/2021 Class 3 severe obesity due t o excess calories with body mass index (BMI) of 45.0 to 49.9 in adult 10/14/2021 Assessment & Plan (12/13/2023 11:44 AM CDT): Recommended aggressive Lifestyle modification and weight loss for improving overall weight related health conditions. Follow up in 1 or 3 months for continuing Lifestyle Medicine education and management visit. Recommend Lifestyle/Nutrition/Weight Loss Seminar on every other Tuesdays @ 5pm. Assessment & Plan (04/19/2023 12:26 PM SURVEY WORKERS SUPERVISOR): Recommended aggressive Lifestyle modification and weight loss for improving overall weight related health conditions. Follow up in 1 or 3 months for continuing Lifestyle Medicine education and management visit. Recommend Lifestyle Seminar on Wednesdays @ 5pm. Patient stated that her diet has nothing to do with her weight. She gained 100lb from olanzapine. I stated that I understand, medication definitely has contributed to her weight, and it can make you consume more calories. Patient got angry and left room abruptly. Gastroesophageal reflux disease without esophagi tis 10/14/2021 Recurrent major depressive disorder, in full rem ission 09/20/2021 Vitamin D deficiency 09/20/2021 CATRACHO (generalized anxiety disorder) 09/20/2021 Moderate episode of recurrent major depressive d isorder 09/20/2021 Post-surgical hypothyroidism 08/30/2021 Assessment & Plan (03/12/2023 3:27 PM SURVEY WORKERS SUPERVISOR): Continue current levothyroxine dose. Will check thyroid function test and adjust levothyroxine dose accordingly. TSH goal lower normal Assessment & Plan (02/13/2022 2:37 PM SURVEY WORKERS SUPERVISOR): Continue current levothyroxine dose. Will check thyroid function test and adjust levothyroxine dose accordingly. 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 Papillary thyroid carcinoma 03/09/2021 Assessment & Plan (03/12/2023 3:28 PM SURVEY WORKERS SUPERVISOR): No evidence of tumor recurrence on biochemical and radiological data so far Will plan follow-up with thyroid function test with a TSH goal lower normal. Biochemical evaluation with thyroid tumor markers. We will also obtain neck ultrasound for evaluation of the neck. If above are in acceptable range, will plan follow-up on yearly basis Assessment & Plan (02/13/2022 2:38 PM SURVEY WORKERS SUPERVISOR): No evidence of tumor recurrence on biochemical and radiological data so far Will plan follow-up with thyroid function test with a TSH goal lower normal. Biochemical evaluation with thyroid tumor markers. We will also obtain neck ultrasound for evaluation of the neck. If above are in acceptable range, will plan follow-up on yearly basis Syphilis contact 02/04/2019 Overview (04/19/2023): Encounter for STD screening;Recorded Elsewhere: No Location: [facility] Source: EHR Chronic: N Practice ID: [id number] Billable Time: 01:15:00 PM Contraceptive management 04/23/2018 Overview (04/19/2023): Encounter for routine checking of intrauterine contraceptive device;Recorded Elsewhere: No Location: [facility] Source: EHR Chronic: N Practice ID: [id number] Billable Time: 09:45:00 AM Pelvic and perineal pain 02/27/2018 Overview (04/19/2023): Pelvic and perineal pain;Recorded Elsewhere: No Location: [facility] Source: EHR Chronic: N Practice ID: [id number] Billable Time: 11:00:00 AM Menstrual cycle disorder 05/19/2015 Overview (04/19/2023): Menometrorrhagia;Recorded Elsewhere: No Location: [facility] Source: EHR Chronic: N Practice ID: [id number] Billable Time: 10:30:00 AM Irregular menses 01/09/2015 Resolved Problems Problem Noted Date Diagnosed Date Resolved Date Abscess of left thigh 06/14/20222022 Hypoglycemia 02/13/2022 01/29/2023 Assessment & Plan (02/13/2022 2:39 PM SURVEY WORKERS SUPERVISOR): No documented low blood sugar Advised BG monitoring with symptoms to establish correlation & inform further work up Positive FLORENCIO (antinuclear antibody) 10/14/2021 01/29/2023 Rash 09/20/2021 01/29/2023 Sore throat 09/20/2021 01/29/2023 Infectious mononucleosis without complication 09/05/19 22 01/29/2023 Leg mass, left 09/09/2018 01/29/2023 Immunizations Immunization Administration Dates Next Due DTaP 12/30/2002,07/25/2001,05/08/2001 DTaP / IPV 10/01/2006,07/25/2001,05/08/2001 ,03/12/2001 DTaP, Unspecified 10/01/2006, 3,07/25/2001,05/08/2001, 03/12/2001 HPV, Quadrivalent 01/02/2011 Hep A, Unspecified 02/02/2010,01/12/2009 Hep B / HiB 12/30/2002,05/08/2001,03/12/2001 Hep B, Adolescent or Pediatric 2000 Hep B, Unspecified 2000 IPV 07/25/2001,05/08/2001 Influenza, Unspecified 12/13/2023(Deferr ed: Patient decision),04/19/2023(Deferred: Patient decision),06/14/2022(Deferred: Patient Refused),12/07/2021(Deferred: Patient decision) MMR 10/01/2006,12/30/2002 Pneumococcal Conjugate 7-Valent 12/30/2002,07/25,05/08/2001,03/12/2001 Polio, Unspecified 10/01/2006,05/08/2001, 001 Td, adsorbed 02/01/2022(Deferred: Patient Ref used) Tdap 02/17/2020,01/02/2011 Varicella 10/01/2006,12/30/2002 Social History Tobacco Use Types Packs/Day Years Used Date Smoking Tobacco: Former Cigarettes Q uit: 07/2021 Vaping Smokeless Tobacco: Never Tobacco Cessation:Counseling Given: Not Answered Alcohol Use Standard Drinks/Week Comments Yes 0 [...] on file Legal Sex Female 5:33 AM SURVEY WORKERS SUPERVISOR Gender Identity Not on file Sexual Orientation Not on file Last Filed Vital Signs Vital Sign Reading Time Taken Comments Blood Pressure 109/76 05/12/2024 6:05 PM SURVEY WORKERS SUPERVISOR Pulse 55 05/12/2024 6:05 PM SURVEY WORKERS SUPERVISOR Temperature 36.3 C (97.3 F) 05/12/2024 2:11 PM SURVEY WORKERS SUPERVISOR Respiratory Rate 18 05/12/2024 6:05 PM SURVEY WORKERS SUPERVISOR Oxygen Saturation 98% 05/12/2024 6:05 PM SURVEY WORKERS SUPERVISOR Inhaled Oxygen Concentration - - Weight 118.1 kg (260 lb 5.8 oz) 05/12/2024 2:11 PM SURVEY WORKERS SUPERVISOR Height 172.7 cm (5' 8 ) 05/12/2024 2:11 PM SURVEY WORKERS SUPERVISOR Body Mass Index 39.59 05/12/2024 2:11 PM SURVEY WORKERS SUPERVISOR Plan of Treatment Not on file Procedures Procedure Name Priority Date/Time Associated Diagnosis Comments XR KNEE RIGHT 4 OR MORE VIEWS Schedule Routine, Read Routine (OP Routine) 05/28/2024 2:35 PM SURVEY WORKERS SUPERVISOR Chronic pain of right knee T4, FREE Routine 05/28/2024 2:15 PM SURVEY WORKERS SUPERVISOR Postoperative hypothyroidism THYROID FUNCTION CASCADE Routine 05/28/2024 2:15 PM SURVEY WORKERS SUPERVISOR Postoperative hypothyroidism CTA ABDOMEN PELVIS W WO CONTRAST ED 05/12/2024 5:29 PM SURVEY WORKERS SUPERVISOR URINALYSIS AND REFLEX TO MICROSCOPIC AND CULTURE STAT 05/12/2024 5:03 PM SURVEY WORKERS SUPERVISOR POCT HCG, URINE Routine 05/12/2024 4:59 PM SURVEY WORKERS SUPERVISOR EGFR STAT 05/12/2024 2:20 PM SURVEY WORKERS SUPERVISOR DIFFERENTIAL AUTO STAT 05/12/2024 2:2 0 PM SURVEY WORKERS SUPERVISOR LIPASE STAT 05/12/2024 2:20 PM SURVEY WORKERS SUPERVISOR COMPREHENSIVE METABOLIC PANEL STAT 05/12/2024 2:20 PM SURVEY WORKERS SUPERVISOR CBC WITH AUTO DIFFERENTIAL STAT 05/12/2024 2:20 PM SURVEY WORKERS SUPERVISOR XR ELBOW RIGHT 3 OR MORE VIEWS ED 04/15/2024 12:01 PM SURVEY WORKERS SUPERVISOR XR HUMERUS RIGHT 2 OR MORE VIEWS ED 04/15/2024 11:21 AM SURVEY WORKERS SUPERVISOR POCT HCG, URINE Routine 04/15/2024 11:04 AM SURVEY WORKERS SUPERVISOR N. GONORRHOEAE/C. TRACHOMATIS AMPLIFICATION STAT 06/13/2022 3:09 PM CDT HEPATITIS PANEL, ACUTE STAT 02/01/2022 7:53 PM CDT from Last 3 Months or Most Recently Relevant to Health Maintenance Results * XR Knee Right 4 or More Views (05/28/2024 2:35 PM SURVEY WORKERS SUPERVISOR) Anatomical Region Laterality Modality Lower Extremities, Knee Right Computed Radiography 06/01/2024 7:27 AM SURVEY WORKERS SUPERVISOR Narrative 06/01/2024 7:28 AM SURVEY WORKERS SUPERVISOR EXAM DESCRIPTION: XR KNEE RIGHT 4 OR MORE VIEWS REASON FOR STUDY: Right Knee Trauma, direct blow on patella Patient fell up the stairs x9 months ago, lateral pain to distal patella, swelling and tenderness. FINDINGS: Four views submitted with comparison 12/08/2021. No acute fracture. The alignment is normal. There is mild medial and patellofemoral bicompartmental right knee osteoarthritis. IMPRESSION: Mild medial and patellofemoral bicompartmental right knee osteoarthritis. THIS IS AN ELECTRONICALLY VERIFIED FINAL REPORT 06/01/2024 7:28 AM - Electronically signed by Arik Camacho M.D. T: Report ID: [id number] Reading Location: [id number] Procedure Note Arik Camacho MD - 06/01/2024 EXAM DESCRIPTION: XR KNEE RIGHT 4 OR MORE VIEWS REASON FOR STUDY: Right Knee Trauma, direct blow on patella Patient fell up the stairs x9 months ago, lateral pain to distal patella, swelling and tenderness. FINDINGS: Four views submitted with comparison 12/08/2021. No acute fracture. The alignment is normal. There is mild medial and patellofemoral bicompartmental right knee osteoarthritis. IMPRESSION: Mild medial and patellofemoral bicompartmental right kneeosteoarthritis. THIS IS AN ELECTRONICALLY VERIFIED FINAL REPORT 06/01/2024 7:28 AM - Electronically signed by Arik Camacho M.D. T: Report ID: [id number] Reading Location: [id number] Garrett Sanedrs MD IMG XR PROCEDURES Final Result * (ABNORMAL) Thyroid Function [place] (05/28/2024 2:15 PM SURVEY WORKERS SUPERVISOR) TSH 40.70(H) 0.30 - 4.20 mcIUnit/mL Blood 05/28/2024 2:15 PM SURVEY WORKERS SUPERVISOR 05/28/2024 2:30 PM SURVEY WORKERS SUPERVISOR Garrett Sanders MD LAB BLOOD ORDERABLES Final Resul t Performing Organization Address [facility]/ZIP Co de Phone Number [id number] [employer] [address] * T4, free (05/28/2024 2:15 PM SURVEY WORKERS SUPERVISOR) Free T4 1.03 0.90 - 1.70 ng/dL Blood 05/28/2024 2:15 PM SURVEY WORKERS SUPERVISOR 05/28/2024 2:30 PM SURVEY WORKERS SUPERVISOR Narrative [facility] 05/28/2024 4:15 PM SURVEY WORKERS SUPERVISOR This test was reflexed from a TSH result. Garrett Sanders MD LAB BLOOD ORDERABLES Final Resul t Performing Organization Address [facility] Co de Phone Number [id number] [place] [address] * CTA Abdomen Pelvis (05/12/2024 5:29 PM SURVEY WORKERS SUPERVISOR) Anatomical Region Laterality Modality Body N/A Computed Tomogra phy 05/12/2024 5:33 PM SURVEY WORKERS SUPERVISOR Narrative 05/12/2024 5:39 PM SURVEY WORKERS SUPERVISOR EXAM DESCRIPTION: CTA ABDOMEN PELVIS REASON FOR STUDY: Lower GI bleed PT reports she has been passing blood clots through her stool. Also reports abdominal pressure and pain with sitting. States region is tender. Pt states she has a growth in her stomach TECHNIQUE: CTA scan of the abdomen and pelvis performed without and with intravenous and without oral contrast using helical scanning technique with dynamic intravenous contrast injection. Precontrast, arterial, and portal venous phase images of the abdomen and pelvis were acquired. Images reviewed with lung, soft tissue and bone windows. Reconstructed coronal and sagittal MPR images reviewed. All images stored on PACS. 3D MIP images rendered on scanning unit and reviewed at time of interpretation. Automated exposure control was used as a dose optimization technique for this examination. CONTRAST TYPE/DOSE: 100mL of IOVERSOL 350 MG IODINE/ML INTRAVENOUS SYRINGE injected via intravenous COMPARISON: 09/14/2021. FINDINGS: VASCULATURE: On the noncontrast sequence, there are no significant calcified atherosclerotic changes of the abdominal aorta. On the post-contrast sequence, there is no definite evidence of acute aortic injury or dissection. The aorta is grossly normal in course and caliber without evidence of hemodynamically significant stenosis, occlusion, or aneurysmal dilatation. There is no definite evidence of intraluminal extravasation of contrast within the large and small bowel to suggest active GI bleeding. CELIAC TRUNK: The celiac artery appears grossly unremarkable without definite of hemodynamically significant stenosis, occlusion, or aneurysmal dilatation. SUPERIOR MESENTERIC ARTERY: The superior mesenteric artery appears grossly unremarkable without evidence of hemodynamically significant stenosis, occlusion, aneurysmal dilatation. RIGHT RENAL ARTERY: There is a single right renal artery noted without evidence of hemodynamically significant stenosis, occlusion, or aneurysmal dilatation. LEFT RENAL ARTERY: There are 2 left renal arteries noted without evidence of hemodynamically significant stenosis, occlusion, or aneurysmal dilatation involving the dominant left renal artery. The accessory left renal artery is too small to accurately assess by CT. INFERIOR MESENTERIC ARTERY: The inferior mesenteric artery appears grossly unremarkable without evidence of occlusion or aneurysmal dilatation. ILIAC ARTERIES: The bilateral common iliac, external iliac, internal iliac, and common femoral arteries appear grossly unremarkable evidence of hemodynamically significant stenosis, occlusion, aneurysmal dilatation. LOWER CHEST: The heart size is normal. There is no definite evidence of a pericardial effusion. There is minimal bibasilar subsegmental atelectasis. There is a small hiatal hernia. LIVER: The liver is grossly normal in size and contour with focal fatty infiltration of the liver along the falciform ligament. There is no definite evidence of a focal hepatic lesion. The hepatic and portal veins are grossly patent. GALLBLADDER: Grossly unremarkable. BILE DUCTS: No intrahepatic or extrahepatic ductal dilatation. SPLEEN: The spleen is grossly stable in size and unremarkable. PANCREAS: The pancreas appears grossly unremarkable without definite of pancreatic ductal dilatation, peripancreatic inflammatory changes, or peripancreatic fluid collection. ADRENALS: The bilateral adrenal glands are grossly stable and unremarkable. KIDNEYS/URINARY TRACT: On the noncontrast sequence, there is no definite evidence of nephrolithiasis. The bilateral kidneys enhance symmetrically. There is a cortical thinning and scarring involving the bilateral kidneys. There is no definite evidence of a suspicious enhancing renal lesion. There is no definite evidence of hydronephrosis or hydroureter. There is mild mucosal thickening of the urinary bladder. GI: There is no definite evidence of a bowel obstruction. There is mild mucosal thickening of the proximal small bowel. There is an air-filled appendix identified without definite evidence of pericecal or periappendiceal inflammatory changes to suggest appendicitis. There are scattered colonic diverticula without definite evidence of diverticulitis. There is mild mucosal thickening of the distal transverse colon, descending colon, and sigmoid colon. There is a small amount of nonspecific free fluid in the pelvis. There is no definite evidence of free air in the abdomen and pelvis. There is no definite evidence of lymphadenopathy in the abdomen and pelvis. REPRODUCTIVE: There is an intrauterine device noted in the uterus. There are likely follicular changes of the bilateral ovaries. MUSCULOSKELETAL: There is a minimal dextroscoliotic curvature of the spine with mild degenerative changes. OTHER: No other abnormality. IMPRESSION: No definite evidence of intraluminal extravasation of contrast within the large and small bowel to suggest active GI bleeding. No definite evidence of acute aortic injury or dissection. No definite evidence of bowel obstruction. Mild mucosal thickening of the distal transverse colon, descending colon, and sigmoid colon, which raises the concern for mild colitis of infectious or inflammatory etiology. Mild mucosal thickening of the proximal small bowel, which may be related to underdistention versus a component of mild enteritis of infectious or inflammatory etiology. Mild mucosal thickening of the urinary bladder, which may be related to underdistention versus cystitis. Clinical correlation with urinary analysis is recommended as clinically indicated. Small amount of nonspecific free fluid in the pelvis. Scattered colonic diverticula without definite evidence of diverticulitis. Normal appendix. THIS IS AN ELECTRONICALLY VERIFIED FINAL REPORT 05/12/2024 5:39 PM - Electronically signed by Zana Sanders D.O. PS: PS Report ID: [id number] Reading Location: [id number] Procedure Note Zana Sanders DO - 05/12/2024 EXAM DESCRIPTION: CTA ABDOMEN PELVIS REASON FOR STUDY: Lower GI bleed PT reports she has been passing blood clots through her stool. Alsoreports abdominal pressure and pain with sitting. States region is tender. Ptstates she has a growth in her stomach TECHNIQUE: CTA scan of the abdomen and pelvis performed without and with intravenous and without oral contrast using helical scanning techniquewith dynamic intravenous contrast injection. Precontrast, arterial, and portal venous phase images of the abdomen and pelvis were acquired. Images reviewed with lung, soft tissue and bone windows. Reconstructed coronaland sagittal MPR images reviewed. All images stored on PACS. 3D MIP images rendered on scanning unit and reviewed at time of interpretation.Automated exposure control was used as a dose optimization technique for this examination. CONTRAST TYPE/DOSE: 100mL of IOVERSOL 350 MG IODINE/ML INTRAVENOUSSYRINGE injected via intravenous COMPARISON: 09/14/2021. FINDINGS: VASCULATURE: On the noncontrast sequence, there are no significant calcified atherosclerotic changes of the abdominal aorta. Onthe post-contrast sequence, there is no definite evidence of acute aorticinjury or dissection. The aorta is grossly normal in course and caliber without evidence of hemodynamically significant stenosis,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
--- OUTSIDE RECORDS SUMMARY | 2024-06-06 01:17 | XMS_ITS | Encounter Summary ---
Author Organization [facility] Healthcare Address [address] [place] [address] Care Team Providers Care Checking Clerk Name Role Phone Garrett Sanders MD Primary Care Provider [phone] Encounter Details Date Type Department Care Team (Late st Contact Info) Description 05/28/2024 Results Follow-Up 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 TECHNOLOGY TRANSACTIONS ATTORNEY documented in this encounter Plan of Treatment Not on file documented as of this encounter Visit Diagnoses Not on filedocumented in this encounter Care Teams Checking Clerk Relationship Specialty Start Date End Date Garrett Sanders MD [address] [place] [address] PCP - General Family Medicine 04/09/23 documented as of this encounter
--- OUTSIDE RECORDS SUMMARY | 2024-06-06 01:17 | XMS_ITS | Referral Summary ---
Author Organization [facility] [employer] Address [address] [place] [address] Care Team Providers Care Arcade Games Mechanic Name Role Phone Berkley De La Paz MD Primary Care Provider [phone] Berkley De La Paz MD Unavailable [phone] Source Comments [facility],non-owned Affiliates and Associated Physician Practices is amultiple site organization consisting of ambulatory clinics and hospital sitesin [place], [place], [place] and [place]. This disclosure is being madepursuant to the Care Everywhere program and may not contain all information available regarding this patient. Last updated 17.[facility] Allergies Active Allergy Reactions Criticality Noted Date Comments Latex 12/04/2016 Medications * Be aware that medications may not be up to date on this document. Alwaysverify current medications with the patient. Medication Sig Dispensed Refills Start Date End Date Status albuterol HFA (PROVENTIL;VENTOLIN; PROAIR) 108 (90 BASE) MCG/ACT inhaler Inhale 2 Puffs by mouth every 6 hours as needed. 1 Inhaler 1 04/14/2013 Active escitalopram (LEXAPRO) 20 MG tablet Take 20 mg by mouth once daily. Active SUMAtriptan (IMITREX) 25 MG tablet Take 1 Tab by mouth once as needed for Migraine (May repeat in 1 hour if needed) for up to 1 dose. 12 Tab 4 04/13/2014 Active naproxen sodium (ANAPROX DS) 550 MG tablet Take 1 Tab by mouth 2 times daily as needed for Pain (3 days per week at most). 20 Tab 4 04/13/2014 Active Active Problems Problem Noted Date Diagnosed Date Irregular menses 01/09/2015 Social History Tobacco Use Types Packs/Day Years Used Date Smoking Tobacco: Never Smokeless Tobacco: Never Alcohol Use Standard Drinks/Week Comments No 0 (1 standard drink = 0.6 oz pur e alcohol) Sex and Gender Information Value Date Recorded Sex Assigned at Not on file Gender Identity Not on file Sexual Orientation Not on file Last Filed Vital Signs Vital Sign Reading Time Taken Comments Blood Pressure 121/74 12/04/2016 2:45 PM CDT Pulse 96 12/04/2016 2:45 PM CDT Temperature 37.2 C (98.9 F) 12/04/2016 2:45 PM CDT Respiratory Rate 20 12/04/2016 2:45 PM CDT Oxygen Saturation 100% 12/04/2016 2:45 PM CDT Inhaled Oxygen Concentration - - Weight 109.3 kg (240 lb 15.4 oz) 12/04/2016 1:28 AM CDT Height 174.8 cm (5' 8.82 ) 12/16/2014 1:31 PM CD T Body Mass Index - - Plan of Treatment Not on file Care Teams Arcade Games Mechanic Relationship Specialty Start Date End Date Berkley De La Paz MD [address] [facility] [address] [place] [address] PCP - General 04/11/18 Berkley De La Paz MD [address] [facility] [address] [place] [address] Pediatrics 04/11/18
--- OUTSIDE RECORDS SUMMARY | 2024-06-06 01:17 | XMS_ITS | Patient Health Summary ---
Author Organization [facility] Address [address] [place] [address] Care Team Providers Care Manager Environmental Health And Safety Name Role Phone Berkley De La Paz MD Primary Care Provider [phone] Berkley De La Paz MD Unavailable [phone] Note from [facility],non-owned Affiliates and Associated Physician Practices is amultiple site organization consisting of ambulatory clinics and hospital sitesin [place], [place], [place] and [place]. This disclosure is being madepursuant to the Care Everywhere program and may not contain all information available regarding this patient. Last updated 17.[facility] Allergies * Latex Medications * Be aware that medications may not be up to date on this document. Alwaysverify current medications with the patient. * albuterol HFA (PROVENTIL;VENTOLIN;PROAIR) 108 (90 BASE) MCG/ACT inhaler (Started 04/14/2013) Inhale 2 Puffs by mouth every 6 hours as needed. 1 refill left * escitalopram (LEXAPRO) 20 MG tablet Take 20 mg by mouth once daily. * SUMAtriptan (IMITREX) 25 MG tablet(Started 04/13/2014) Take 1 Tab by mouth once as needed for Migraine (May repeat in 1 hour if needed) for up to 1 dose. 4 refills left * naproxen sodium (ANAPROX DS) 550 MG tablet(Started 04/13/2014) Take 1 Tab by mouth 2 times daily as needed for Pain (3 days per week at most). 4 refills left Active Problems Problem Noted Date Diagnosed Date [...] CD T Body Mass Index - - Procedures * HCG URINE QUALITATIVE - POCT (IP) BEAKER(Performed 12/04/2016) * HEPATIC FUNCTION PANEL(Performed 12/04/2016) * ACETAMINOPHEN LEVEL(Performed 12/04/2016) * SALICYLATE LEVEL BLOOD(Performed 12/04/2016) * URINE DRUG SCREEN IMMUNOASSAY(Performed 12/04/2016) * BASIC METABOLIC PANEL (CALCIUM TOTAL)(Performed 12/04/2016) * ED INCISION AND DRAINAGE(Performed 05/13/2015) Performed for Abscess, axilla * LAB RESULTS ORDER(Performed 01/13/2015) * T4 TOTAL(Performed 12/16/2014) Performed for Irregular menses * TSH(Performed 12/16/2014) Performed for Irregular menses * LIPID PROFILE(Performed 12/16/2014) Performed for Irregular menses, Obesity * TESTOSTERONE TOTAL FEM/CHLD HYPOGNDL MALE(Performed 12/16/2014) Performed for Irregular menses * HEMOGLOBIN A1C(Performed 12/16/2014) Performed for Irregular menses, Obesity * COMPREHENSIVE METABOLIC PANEL(Performed 12/16/2014) Performed for Irregular menses, Obesity * FSH(Performed 12/16/2014) Performed for Irregular menses * LH(Performed 12/16/2014) Performed for Irregular menses * CBC W AUTO DIFFERENTIAL(Performed 12/16/2014) Performed for Irregular menses * MRI BRAIN WWO CONTRAST(Performed 03/19/2014) Performed for Headache * ACETAMINOPHEN LEVEL(Performed 06/26/2013) * DIFFERENTIAL MANUAL(Performed 06/26/2013) * COMPREHENSIVE METABOLIC PANEL(Performed 06/26/2013) * CBC W AUTO DIFFERENTIAL(Performed 06/26/2013) * HCG URINE QUALITATIVE - POCT (IP) BEAKER(Performed 06/26/2013) Results * HCG URINE QUALITATIVE - POCT (IP) BEAKER (12/04/2016 7:41 AM CDT) Only the most recent of2 resultswithin the time period is included. Pathologist [facility] HCG Qual Urine Negative Negative [facility] POCT TESTING QC Verified Yes Yes [facility] PO CT TESTING Urine URINE / Unknown 12/04/2016 7 :41 AM CDT Daysi Dunn MD LAB - POINT OF CARE ORDERABLES [facility] POCT TESTING [facility] [address] [phone] * (ABNORMAL) HEPATIC FUNCTION PANEL (12/04/2016 3:44 AM CDT) Pathologist [facility] Alkaline Phosphatase 54(L) 100 - 390 U/L 12/04/2016 4:12 AM CDT [facility] ALT 16 8 - 65 U/L 12/04/2016 4:12 AM CDT [facility] AST 23 3 - 35 U/L 12/04/2016 4:12 AM CDT [facility] Protein Total 7.3 6.3 - 8.2 gm/dL 12/04/2016 4:12 AM CDT [facility] Albumin 3.9 3.3 - 4.9 gm/dL 12/04/2016 4:12 AM CDT [facility] Bilirubin Total 0.7 0.3 - 1.2 mg/dL 12/04/2016 4:12 AM CDT [facility] Bilirubin Direct 0.21 0.11 - 0.64 mg/dL 12/04/2016 4:12 AM CDT [facility] Blood BLOOD SPECIMEN / Unknown Lab Venipuncture / Unknown 12/04/2016 3:44 AM CDT 12/04/2016 3:56 AM CDT Daysi Dunn MD LAB - CHEMISTRY ORDYao MIRANDA Performing Organization Address [facility] Co de Phone Number [facility] [address] [place] [phone] * (ABNORMAL) SALICYLATE LEVEL BLOOD (12/04/2016 3:44 AM CDT) Salicylate <0.5(L) 15.0 - 30.0 mg/dL 12/04/2016 4:18 AM CDT [facility] Blood BLOOD SPECIMEN / Unknown Lab Venipuncture / Unknown 12/04/2016 3:44 AM CDT 12/04/2016 3:56 AM CDT Beth Weaver MD LAB - CHEMISTRY ORDYao MIRANDA Performing Organization Address [facility] de Phone Number [facility] [address] [place] [phone] * (ABNORMAL) ACETAMINOPHEN LEVEL (12/04/2016 3:44 AM CDT) Only the most recent of2 resultswithin the time period is included. Acetaminophen 26.4(H) 10.0 - 20.0 ug/mL 12/04/2016 4:18 AM CDT [facility] Blood BLOOD SPECIMEN / Unknown Lab Venipuncture / Unknown 12/04/2016 3:44 AM CDT 12/04/2016 3:56 AM CDT Narrative [facility] - 12/04/2016 4:18 AM CDT [facility] ACETAMINOPHEN COMMENT Critical values: 4 Hours Post Ingestion: Critical value > 200 g/mL 12 Hours Post Ingestion: Critical value > 50 g/mL For acute ingestion, please refer to Acetaminophen nomogram to determine the risk of toxicity based on time since ingestion and acetaminophen level (see link provided). Note the nomogram disclaimer. WARNING: Assessing the potential toxicity of an acetaminophen level on a standard risk nomogram must take into consideration many factors including any uncertainty of the time since ingestion or the possibility of other medications that may alter the peak level. Contact the [place] [facility] at or reserved for healthcare professionals to assist you in evaluating potentially toxic acetaminophen levels. Disclaimer: Administration of N-acetylcysteine (NAC) may interfere with the acetaminophen assay leading to falsely low acetaminophen results. Please be aware of this negative bias when interpreting results. For questions regarding treatment of acetaminophen toxicity and/or interpretation of acetaminophen concentrations in the presence of NAC please consult [facility] at and/or [facility] Medical Toxicology at [phone]. Beth Weaver MD LAB - CHEMISTRY LELA MIRANDA [facility] Organization Address City/State/ZIP Co de Phone Number [facility] [place] [address] * DRUG SCREEN TOX URINE PANEL (12/04/2016 2:58 AM CDT) [facility] Amphetamines Screen Urine Not Detected Not Detected 12/04/2016 3:51 AM [facility] Barbiturates Screen Urine Not Detected Not Detected 12/04/2016 3:51 AM [facility] Benzodiazepines Screen Urine Not Detected Not Detected 12/04/2016 3:51 AM [facility] Cannabinoids Screen Urine Not Detected Not Detected 12/04/2016 3:51 AM [facility] Cocaine Screen Urine Not Detected Not Detected 12/04/2016 3:51 AM [facility] Methadone Screen Urine Not Detected Not Detected 12/04/2016 3:51 AM [facility] Opiate Screen Urine Not Detected Not Detected 12/04/2016 3:51 AM [facility] Phencyclidine Screen Urine Not Detected Not Detected 12/04/2016 3:51 AM [facility] Urine URINE / Unknown Collection / Unknown 12/04/2016 2:58 AM CDT 12/04/2016 3:36 AM T Narrative [facility] - 12/04/2016 3:51 AM CDT This drug screen is designed for MEDICAL purposes only. It is not to be used for legal purposes, including but not limited to worker's comp, police investigations, occupational issues, child custody, etc. Any positive result is only presumptive and must be confirmed with a separate confirmatory test ordered by the physician. Drug Screening Test Cutoff Values: AMPHETAMINES 1000 ng/mL BARBITURATES 200 ng/mL BENZODIAZEPINES 200 ng/mL CANNABINOIDS(THC) 50 ng/mL COCAINE 300 ng/mL METHADONE 300 ng/mL OPIATES 300 ng/mL PHENCYCLIDINE(PCP)25 ng/mL Beth Weaver MD LAB - URINE CHEMISTR Y ORDERABLES [facility] [address] [place] [address] * (ABNORMAL) BASIC METABOLIC PANEL (CALCIUM TOTAL) (12/04/2016 1:55 AM CDT) Glucose 117(H) 70 - 105 mg/dL 12/04/2016 2:26 AM T [facility] Sodium 142 136 - 145 mmol/L 12/04/2016 2:26 AM T [facility] Potassium 4.1 3.5 - 5.1 mmol/L 12/04/2016 2:26 AM T [facility] Chloride 109(H) 98 - 107 mmol/L 12/04/2016 2:26 AM T [facility] CO2 22 20 - 28 mmol/L 12/04/2016 2:26 AM [facility] Calcium 9.26 9.08 - 10.48 mg/dL 12/04/2016 2:26 AM T [facility] Anion Gap 11 5 - 20 mmol/L 12/04/2016 2:26 AM T [facility] BUN 9.6 5.3 - 18.7 mg/dL 12/04/2016 2:26 AM [facility] Creatinine 0.80 0.61 - 1.07 mg/dL 12/04/2016 2:26 AM T [facility] eGFR by MDRD mL/min/1.7 3m2 12/04/2016 2:26 AM [facility] Comment: eGFR calculations are not performed for children under 18 years old. eGFR by MDRD mL/min/1.7 3m2 12/04/2016 2:26 AM CDT [facility] Comment: eGFR calculations are not performed for children under 18 years old. Blood BLOOD SPECIMEN / Unknown Lab Venipuncture / Unknown 12/04/2016 1:55 AM CDT 12/04/2016 2:10 AM CDT Beht Weaver MD LAB - CHEMISTRY LELA Giordano Organization Address City/State/ZIP Co de Phone Number [facility] [address] [place] [address] * ED INCISION AND DRAINAGE (05/13/2015 10:27 PM CARRIER PACKER) Narrative Rell Tobin MD - 05/13/2015 10:27 PM CARRIER PACKER Rell Tobin MD 05/13/2015 10:27 PM EMERGENCY DEPARTMENT 05/13/2015 Dear Doctor, We had the pleasure of caring for your patient, Mervat Caldera in our emergency department on 05/13/2015. A note from the provider(s) who cared for your patient is attached. Should you wish to access any laboratory results, please call . Should you wish to access any radiology results, please call , option 3. In addition, you can access patient information 24 hours a day, from any computer, through [employer], the online version of our electronic medical record. If you would like to use this service, please call Shavonne Alva, Connectivity Coordinator, at . We appreciate the opportunity to care for your patients. If you would like additional information, please call the emergency department directly at . Sincerely, Rell Tobin MD Division of Emergency Medicine [place], [place] [facility] EMERGENC[facility] [place] [facility] DESIGNATED EMERGENCY DEPARTMENT Provider contact with the patient: 05/13/2015 20:08 Mervat Caldera [id number] [facility] EMERGENCY DEPARTMENT History Chief Complaint Patient presents with Abscess abscess to L axilla. actively draining in triage. bloody drainage currently, pt stated when it first began it was dark green in color. denies fevers. started to become painful in past week HPI 14 yo WF with no significant pmh in the ED with CC of draining boil in left axilla. Pt reports that the symptoms have occurred for the past week. She reports that the areas started to drain today, and parents expressed yellow fluid with some blood out of it. Pt reports the area is painful. She has never had this in the past. She denies any fever, chills, nausea, vomiting, and diarrhea. She is eating an drinking as normal. No past medical history on file. No past surgical history on file. History Social History Marital Status: Single Spouse Name: N/A Number of Children: N/A Years of Education: N/A Occupational History Not on file. Social History Main Topics Smoking status: Never Smoker Smokeless tobacco: Never Used Alcohol Use: No Drug Use: No Sexual Activity: Not on file Other Topics Concern Not on file Social History Narrative Medications Current Outpatient Prescriptions Medication Sig Dispense Refill clindamycin (CLEOCIN) 300 MG capsule Take 1 Cap by mouth 3 times daily for 10 days 30 Cap 0 escitalopram (LEXAPRO) 20 MG tablet Take 20 mg by mouth once daily. SUMAtriptan (IMITREX) 25 MG tablet Take 1 Tab by mouth once as needed for Migraine (May repeat in 1 hour if needed) for up to 1 dose. 12 Tab 4 naproxen sodium (ANAPROX DS) 550 MG tablet Take 1 Tab by mouth 2 times daily as needed for Pain (3 days per week at most). 20 Tab 4 albuterol HFA (PROVENTIL;VENTOLIN;PROAIR) 108 (90 BASE) MCG/ACT inhaler Inhale 2 Puffs by mouth every 6 hours as needed. 1 Inhaler 1 Review of Systems Review of Systems Constitutional: Negative for fever, chills, diaphoresis and fatigue. HENT: Negative for congestion, rhinorrhea and sore throat. Eyes: Negative for photophobia, pain and visual disturbance. Respiratory: Negative for cough, shortness of breath and wheezing. Cardiovascular: Negative for chest pain and palpitations. Gastrointestinal: Negative for nausea, vomiting, abdominal pain and diarrhea. Endocrine: Negative for polydipsia, polyphagia and polyuria. Genitourinary: Negative for dysuria, urgency, hematuria and difficulty urinating. Musculoskeletal: Negative for arthralgias, neck pain and neck stiffness. Skin: Positive for color change and wound. Pt complains of draining boil in left axilla Allergic/Immunologic: Negative for environmental allergies, food allergies and immunocompromised state. Neurological: Negative for dizziness, weakness, light-headedness and headaches. Hematological: Negative for adenopathy. Does not bruise/bleed easily. Psychiatric/Behavioral: Negative for suicidal ideas, confusion and agitation. The patient is not nervous/anxious. BP 143/87 mmHg Pulse 80 Temp(Src) 98.4 F Resp 20 Wt 118.1 kg (260 lb 5.8 oz) Physical Exam Physical Exam Constitutional: She is oriented to person, place, and time. She appears well-developed and well-nourished. HENT: Head: Normocephalic and atraumatic. Right Ear: External ear normal. Left Ear: External ear normal. Nose: Nose normal. Mouth/Throat: Oropharynx is clear and moist. No oropharyngeal exudate. Eyes: Conjunctivae and EOM are normal. Pupils are equal, round, and reactive to light. Right eye exhibits no discharge. Left eye exhibits no discharge. No scleral icterus. Neck: Normal range of motion. Neck supple. No JVD present. No tracheal deviation present. No thyromegaly present. Cardiovascular: Normal rate, regular rhythm, normal heart sounds and intact distal pulses. Exam reveals no gallop and no friction rub. No murmur heard. Pulmonary/Chest: Effort normal and breath sounds normal. No stridor. No respiratory distress. She has no wheezes. She has no rales. She exhibits no tenderness. Abdominal: Soft. Bowel sounds are normal. She exhibits no distension and no mass. There is no tenderness. There is no rebound and no guarding. No hernia. Musculoskeletal: Normal range of motion. She exhibits no edema or tenderness. Lymphadenopathy: She has no cervical adenopathy. Neurological: She is alert and oriented to person, place, and time. She displays normal reflexes. No cranial nerve deficit. She exhibits normal muscle tone. Coordination normal. Skin: Skin is warm. No rash noted. She is not diaphoretic. There is erythema. No pallor. Pt with folliculitis in bilateral axilla Left axilla with 1-2 cm fluctuant area in left axilla with drainage of bloody fluid , tender to palpation Psychiatric: She has a normal mood and affect. Her behavior is normal. Judgment and thought content normal. Nursing note and vitals reviewed. Procedures Incision/Drainage Date/Time: 05/13/2015 10:24 PM Performed by: RELL TOBIN Authorized by: RELL TOBIN Consent: Verbal consent obtained. Risks and benefits: risks, benefits and alternatives were discussed Consent given by: patient and parent Patient identity confirmed: verbally with patient Time out: Immediately prior to procedure a time out was called to verify the correct patient, procedure, equipment, it technical support specialist and site/side marked as required. Type: abscess Location: Left axilla Anesthesia: local infiltration Local anesthetic: Buffered Lidocaine Anesthetic total: 15 ml Patient sedated: yes Sedatives: midazolam Analgesia: percocet Scalpel size: 11 Incision type: single straight Complexity: simple Drainage: serosanguinous Drainage amount: moderate Wound treatment: wound left open Packing material: 1/2 in gauze Patient tolerance: Patient tolerated the procedure well with no immediate complications ECG Interpretation ECG Interpretation Lab/SPO2 Interpretation Progress Notes ED Course Pt in ED with CC of left axillary abscess , tender on palpation with mild drainage Abscess I&D'd in ED, pt tolerated well. Pt discharged home with Clindamycin , to follow up with surgery in 2 weeks. Medical Decision Making Clinical Impression Final diagnoses: Abscess, axilla Amilcar Binu Tobin MD PROCEDURE/MINOR HECTOR GICAL ORDERABLES * LAB RESULTS ORDER (01/13/2015 9:26 PM CDT) Narrative 01/13/2015 9:26 PM CDT Ordered by an unspecified provider. Scanned Document LAB - THERAPEUTIC DR COVARRUBIAS MONITORING ORDERABLES * (12/16/2014 2:57 PM CDT) Pathologist [facility] 10.8 mIU/mL 12/16/2014 7:02 PM CDT [facility] Blood BLOOD SPECIMEN / Unknown Lab Venipuncture / Unknown 12/16/2014 2:57 PM CDT 12/16/2014 3:12 PM CDT Narrative [facility] - 12/16/2014 7:02 PM CDT LH Reference Range Adult Female: Normally menstruating: Follicular 1.9 - 12.5 mIU/mL Midcycle Peak 8.7 - 76.3 mIU/mL Luteal 0.5 - 16.9 mIU/mL <0.1 - 1.5 mIU/mL Postmenopausal 15.9 - 54.0 mIU/mL Contraceptives 0.7 - 5.6 mIU/mL Adult Male: 20 - 70 years : 1.5 - 9.3 mIU/mL > 70 years : 3.1 - 34.6 mIU/mL Children : <0.1 - 6.0 mIU/mL Funmi Holbrook MD LAB - CHEMISTRY LELA MIRANDA [facility] [address] [place] [address] * HEMOGLOBIN A1C (12/16/2014 2:57 PM CDT) [facility] Hemoglobin A1c 5.5 3.4 - 6.1 % 12/16/2014 4:08 PM CDT [facility] Estimated Average Glucose 111 mg/dL 12/16/2014 4:08 PM CDT [facility] Whole Blood BLOOD SPECIMEN WITH EDTA / Unknown Lab Venipuncture / Unknown 12/16/2014 2:57 PM CDT 12/16/2014 3:12 PM CDT Funmi Holbrook MD LAB - CHEMISTRY LELA MIRANDA Performing Organization Address City/[facility]/ZIP Co de Phone Number [facility] [address] [place] [phone] * FSH (12/16/2014 2:57 PM CDT) Pathologist [facility] FSH 5.49 0.2 - 8.0 mIU/mL 12/16/2014 4:24 PM CDT [facility] Blood BLOOD SPECIMEN / Unknown Lab Venipuncture / Unknown 12/16/2014 2:57 PM CDT 12/16/2014 3:12 PM CDT Narrative [facility] - 12/16/2014 4:24 PM CDT FSH Reference Range Normal Female Menses: Normally menstruating: Follicular 3.0 - 8.1 mIU/mL Midcycle Peak 2.6 - 16.7 mIU/mL Luteal 1.4 - 5.5 mIU/mL Postmenopausal 26.7 - 133.4 mIU/mL Funmi Holbrook MD LAB - CHEMISTRY LELA MIRANDA [facility] [place] [address] * TESTOSTERONE TOTAL FEM/CHLD HYPOGNDL MALE (12/16/2014 2:57 PM CDT) Testosterone by Air Crew Officer 24 6 - 50 ng/dL 12/19/2014 2:06 PM CDT [employer] ([facility]) Comment: INTERPRETIVE INFORMATION: Total Testosterone, Marshall Stage Male Female Marshall Stage I 2-15 ng/dL 2-17 ng/dL Marshall Stage II 3-303 ng/dL 5-40 ng/dL Marshall Stage III 10-851 ng/dL 10-63 ng/dL Marshall Stage IV-V 162-847 ng/dL 11-62 ng/dL Total testosterone values may not reflect optimal concentrations in all individuals. Free or bioavailable testosterone measurements may provide supportive information. REFERENCE INTERVAL: Testosterone, LC-MS/MS Access complete set of age- and/or gender-specific reference intervals for this test in the [facility] Test Directory ([employer]). Test developed and characteristics determined by [employer]. See Compliance Statement B: [employer]/CS Blood specimen (specimen) BLOOD SPECIMEN / Unknown Lab Venipuncture / Unknown 12/16/2014 2:57 PM CDT 12/16/2014 3:12 PM CDT Funmi Holbrook MD LAB - CHEMISTRY LELA MIRANDA [employer] ([facility]) [address] * (ABNORMAL) CBC W AUTO DIFFERENTIAL (12/16/2014 2:57 PM CDT) Only the most recent of2 resultswithin the time period is included. WBC 6.4 4.5 - 14.5 x10^9/L 12/16/2014 3:56 PM CDT [facility] WBC Corrected x10^9/L 12/16/2014 3:56 PM [facility] RBC 4.72 4.10 - 5.10 x10^12/L 12/16/2014 3:56 PM [facility] Hemoglobin 14.6 12.0 - 16.0 gm/dL 12/16/2014 3:56 PM [facility] Hematocrit 41.4 36.0 - 47.0 % 12/16/2014 3:56 PM [facility] MCV 87.7 78.0 - 98.0 fl 12/16/2014 3:56 PM [facility] MCH 30.9 25.0 - 35.0 pg 12/16/2014 3:56 PM [facility] MCHC 35.3 31.0 - 37.0 gm/dL 12/16/2014 3:56 PM [facility] Platelet Count 336 100 - 400 x10^9/L 12/16/2014 3:56 PM [facility] RDW-CV 11.8 11.5 - 14.0 % 12/16/2014 3:56 PM [facility] MPV 10.0(H) 6.0 - 9.5 fl 12/16/2014 3:56 PM [facility] Neutrophils % 47.7 24.0 - 66.0 % 12/16/2014 3:56 PM [facility] Lymphocytes % 34.8 22.0 - 61.0 % 12/16/2014 3:56 PM [facility] Monocytes % 14.5 3.0 - 15.0 % 12/16/2014 3:56 PM [facility] Eosinophils % 2.0 0.0 - 10.0 % 12/16/2014 3:56 PM [facility] Basophils % 0.5 % 12/16/2014 3:56 PM [facility] Immature Granulocytes 0.5 % 12/16/2014 3:56 PM [facility] Neutrophil Absolute 3.06 x10^9/L 12/16/2014 3:56 PM [facility] Lymphocytes Absolute 2.23 x10^9/L 12/16/2014 3:56 PM [facility] Monocytes Absolute 0.93 x10^9/L 12/16/2014 3:56 PM [facility] Eosinophils Absolute 0.13 x10^9/L 12/16/2014 3:56 PM CDT [facility] Basophils Absolute 0.03 x10^9/L 12/16/2014 3:56 PM CDT [facility] Immature Granulocytes Absolute 0.03 x10^9/L 12/16/2014 3:56 PM T [facility] Blood BLOOD SPECIMEN / Unknown Lab Venipuncture / Unknown 12/16/2014 2:57 PM CDT 12/16/2014 3:12 PM CDT Funmi Holbrook MD LAB - HEMATOLOGY ORD ERABLES [facility] [place] [address] * (ABNORMAL) COMPREHENSIVE METABOLIC PANEL (12/16/2014 2:57 PM CDT) Only the most recent of2 resultswithin the time period is included. Glucose 122(H) 70 - 105 mg/dL 12/16/2014 4:05 PM [facility] Sodium 141 136 - 145 mmol/L 12/16/2014 4:05 PM [facility] Potassium 3.9 3.5 - 5.1 mmol/L 12/16/2014 4:05 PM [facility] Chloride 106 98 - 107 mmol/L 12/16/2014 4:05 PM [facility] CO2 23 20 - 28 mmol/L 12/16/2014 4:05 PM [facility] Calcium 9.50 8.92 - 10.32 mg/dL 12/16/2014 4:05 PM [facility] Anion Gap 12 5 - 20 mmol/L 12/16/2014 4:05 PM [facility] [facility] BUN 8.2 6.1 - 21.0 mg/dL 12/16/2014 4:05 PM [facility] Creatinine 0.65 0.62 - 1.00 mg/dL 12/16/2014 4:05 PM [facility] Alkaline Phosphatase 84(L) 100 - 390 U/L 12/16/2014 4:05 PM [facility] ALT 22 8 - 65 U/L 12/16/2014 4:05 PM [facility] AST 20 3 - 35 U/L 12/16/2014 4:05 PM CDT [facility] Protein Total 7.3 6.4 - 8.5 gm/dL 12/16/2014 4:05 PM T [facility] Albumin 4.2 3.3 - 5.0 gm/dL 12/16/2014 4:05 PM T [facility] Bilirubin Total 0.7 0.3 - 1.2 mg/dL 12/16/2014 4:05 PM T [facility] eGFR by MDRD mL/min/1.7 3m2 12/16/2014 4:05 PM T [facility] Comment: eGFR calculations are not performed for children under 18 years old. eGFR by MDRD mL/min/1.7 3m2 12/16/2014 4:05 PM T [facility] Comment: eGFR calculations are not performed for children under 18 years old. Blood BLOOD SPECIMEN / Unknown Lab Venipuncture / Unknown 12/16/2014 2:57 PM CDT 12/16/2014 3:12 PM CDT Funmi Holbrook MD LAB - CHEMISTRY LELA MIRANDA Performing Organization Address City/[facility] Co de Phone Number [facility] [address] [place] [id number] * TSH (12/16/2014 2:57 PM CDT) Pathologist [facility] TSH 1.54 0.35 - 4.95 uIU/mL 12/16/2014 4:23 PM CDT [facility] Blood BLOOD SPECIMEN / Unknown Lab Venipuncture / Unknown 12/16/2014 2:57 PM CDT 12/16/2014 3:12 PM CDT Funmi Holbrook MD LAB - CHEMISTRY LELA MIRANDA Performing Organization Address City/[facility]/ZIP Co de Phone Number [facility] [address] [place] [phone] * T4 TOTAL (12/16/2014 2:57 PM CDT) T4 Total 5.60 4.87 - 11.7 ug/dL 12/16/2014 4:23 PM CDT [facility] Blood BLOOD SPECIMEN / Unknown Lab Venipuncture / Unknown 12/16/2014 2:57 PM CDT 12/16/2014 3:12 PM CDT Funmi Holbrook MD LAB - CHEMISTRY LELA MIRANDA [facility] [address] [place] [address] * (ABNORMAL) LIPID PROFILE (12/16/2014 2:57 PM CDT) [facility] Cholesterol 146 <170 mg/dL 12/16/2014 4:06 PM CDT [facility] Triglycerides 157 42 - 330 mg/dL 12/16/2014 4:06 PM CDT [facility] HDL Cholesterol 35(L) >40 mg/dL 12/16/2014 4:06 PM CDT [facility] LDL Calculated 80 <100 mg/dL 12/16/2014 4:06 PM CDT [facility] VLDL Calculated 31 12 - 38 mg/dL 12/16/2014 4:06 PM T [facility] Chol HDL Ratio 4.2 <=5.0 12/16/2014 4:06 PM CDT [facility] Blood BLOOD SPECIMEN / Unknown Lab Venipuncture / Unknown 12/16/2014 2:57 PM CDT 12/16/2014 3:12 PM CDT Narrative [facility] - 12/16/2014 4:06 PM CDT Lipid Profile Comment: Adult references ranges are the recommendation of the [place] [employer] , for those patients >18 years old. Cholestrol LDL Triglycerides HDL -- -- -- <40 Low <170 <100 <150 Desirable 170-199 130-159 150-199 Borderline High >200 160-189 200-499 >60 High Risk factor status for Coronary Artery Disease is necessary to place these lab findings in perspective. Note: This test is for fasting patients only. A non-fasting state may alter some of these results. Funmi Holbrook MD LAB - CHEMISTRY LELA MIRANDA Performing Organization Address City/[facility]/ZIP Co de Phone Number [facility] [address] [place] [address] * MRI BRAIN WITH AND WITHOUT CONTRAST (03/19/2014 2:23 PM [facility]ER [facility]ER) Anatomical Region Laterality Modality Head Magnetic Resonan ce 03/19/2014 3:5 1 PM [facility] Impressions 03/19/2014 4:09 PM [facility] 1. Normal examination of the brain without findings to explain the patient's symptoms. Narrative 03/19/2014 4:09 PM [facility] EXAMINATION: Magnetic resonance imaging (MRI) of the brain without and with contrast HISTORY: Headaches TECHNIQUE: MRI of the brain was performed prior to and following the uneventful administration of 20 mL Magnevist intravenous gadolinium contrast according to standard protocol. FINDINGS: No prior study is available for comparison. No evidence of acute or chronic hemorrhage is identified. No evidence of acute cerebral infarction is seen. The ventricles are of normal size, shape, and morphology. No mass effect or midline shift is seen. No enhancing lesions are identified. The corpus callosum and sella appear normal. The posterior fossa, brainstem, and craniocervical junction appear normal. Other than minimal maxillary sinus disease, the visualized portions of the orbits, paranasal sinuses, and mastoids appear normal. Normal flow voids are demonstrated in the carotid arteries and basilar artery. The calvarium and visualized cervical spine appear normal. Procedure Note Milly Moran MD - 03/19/2014 EXAMINATION: Magnetic resonance imaging (MRI) of the brain without and with contrast HISTORY: Headaches TECHNIQUE: MRI of the brain was performed prior to and following the uneventful administration of 20 mL Magnevist intravenous gadolinium contrast according to standard protocol. FINDINGS: No prior study is available for comparison. No evidence of acute or chronic hemorrhage is identified. No evidence of acute cerebral infarction is seen. The ventricles are of normal size, shape, and morphology. No mass effect or midline shift is seen. No enhancing lesions are identified. The corpus callosum and sella appear normal. The posterior fossa, brainstem, and craniocervical junction appear normal. Other than minimal maxillary sinus disease, the visualized portions of the orbits, paranasal sinuses, and mastoids appear normal. Normal flow voids are demonstrated in the carotid arteries and basilar artery. The calvarium and visualized cervical spine appear normal. IMPRESSION 1. Normal examination of the brain without findings to explain the patient's symptoms. Berkley De La Paz MD MR ORDERABLES * (ABNORMAL) DIFFERENTIAL MANUAL (06/26/2013 1:10 PM CDT) WBC Auto 7.9 x10^9/L 06/26/2013 1:38 PM CDT [facility] Neutrophil % Manual 66 24 - 66 % 06/26/2013 1:38 PM CDT [facility] Lymphocytes % Manual 24 22 - 61 % 06/26/2013 1:38 PM CDT [facility] Monocytes % Manual 9 3 - 15 % 06/26/2013 1:38 PM CDT [facility] Basophils % Manual 1 % 06/26/2013 1:38 PM CDT [facility] Cells Counted 100 # cells 06/26/2013 1:38 PM CDT [facility] Platelet Estimation Adequate platelets Normal, Adequate platelets 06/26/2013 1:38 PM CDT [facility] WBC Morph Normal 06/26/2013 1:38 PM CDT [facility] Anisocytosis Occasional(A ) None 06/26/2013 1:38 PM CDT [facility] Large Platelets Occasional(A ) None 06/26/2013 1:38 PM CDT [facility] Blood BLOOD SPECIMEN / Unknown 06/26/2013 1:10 PM CDT 06/26/2013 1:14 PM CDT Samra Durán MD LAB - HEMATOLOGY ORD ERABLES Performing Organization Address City/State/[facility] Co de Phone Number [facility] [address] [place] [address] Care Teams Manager Environmental Health And Safety Relationship Specialty Start Date End Date Berkley De La Paz MD [address] [place] [address] PCP - General 04/11/18 Berkley De La Paz MD [address] [place] [address] Pediatrics 04/11/18
--- OUTSIDE RECORDS SUMMARY | 2024-06-06 01:17 | XMS_ITS | Clinical Summary ---
Author Organization [facility] Address [facility] [place] [address] Care Team Providers Care Universal Worker Assisted Living Name Role Phone Tamra Moran NP Primary Care Provider [phone] Allergies Active Allergy Reactions Criticality Noted Date Comments Latex Rash Medium 05/10/2018 Added based on information entered during case entry, please review and add reactions, type, and severity as needed Medications busPIRone 7.5 MG tabletIndications:A nxiety Take 1 tablet (7.5 mg total) by mouth 2 (two) times daily. 60 tablet 1 1 Active meloxicam 15 MG tabletIndications:C hronic pain of multiple joints Take 1 tablet (15 mg total) by mouth daily. 90 tablet 1 1 Active ONDANSETRON 4 MG disintegrating tabletIndications:N ausea DISSOLVE 1 TABLET(4 MG) ON THE TONGUE EVERY 8 HOURS NEEDED FOR NAUSEA 20 tablet 1 1 Active SERTRALINE 100 MG tabletIndications:A nxiety TAKE 1 TABLET(100 MG) BY MOUTH DAILY 30 tablet 1 2 Active valACYclovir 1 g tablet TAKE 1 TABLET BY MOUTH 2 TIMES A DAY FOR 10 DAYS 2 Active VRAYLAR 3 MG CapIndications:Mood disorder (CMS/HCC) TAKE 1 CAPSULE BY MOUTH DAILY 30 capsule 1 2 Active levothyroxine (SYNTHROID) 200 MCG tabletIndications:P ostablative hypothyroidism TAKE 1 TABLET(200 MCG) BY MOUTH DAILY 30 tablet 3 Active Active Problems Problem Noted Date Diagnosed Date Papillary thyroid carcinoma (CMS/HCC HHS/HCC) Immunizations Name Administration Dates Next Due Comvax 12/30/2002,05/08/2001,03/12/2001 Dtap (Generic) 10/01/2006, 3,07/25/2001,05/08/2001, 001 HPV4 (Gardasil) 01/02/2011 Hepatitis A 02/02/2010,01/12/2009 Hepatitis B 2000 MMR 10/01/2006,12/30/2002 Pneumococcal (Prevnar 7) 12/30/2002,07/25/2001,0 05/08/2001,03/12/2001 Polio Ipv (Generic) 10/01/2006,07/25/2001,2001,03/12/2001 Tdap (Boostrix) 02/17/2020 Tdap (Generic) 01/02/2011 Varicella Vaccine 10/01/2006,12/30/2002 Family History Medical History Relation Comments Heart Disease Father Hypertension Father No Known Problems Maternal Grandfather No Known Problems Maternal Grandmother Heart Disease Mother Alzheimers Paternal Grandfather Diabetes Paternal Grandfather Hypertension Paternal Grandfather Alzheimers Paternal Grandmother Relation Status Comments Father Maternal Grandfather Maternal Grandmother Mother Alive Paternal Grandfather Paternal Grandmother Social History Tobacco Use Types Packs/Day Years Used Date Smoking Tobacco: Heavy Smoker Cigarettes 0.8 4 Smokeless Tobacco: Never Tobacco Cessation:Ready to Q uit: No; Counseling Given: Yes Alcohol Use Standard Drinks/Week Comments Yes 0 (1 standard drink = 0.6 oz pur e alcohol) OCCAS PHQ-2 Answer Date Recorded PHQ-2 Score - If the patient scores above 3, please move on to questions 3-9 0 03/09/2021 Comments No Sex and Gender Information Value Date Recorded Sex Assigned at Female 02/16/2021 2:40 PM AUDIOLOGY ASSISTANT Legal Sex Female 6:24 PM CDT Gender Identity Female 02/16/2021 2:40 PM AUDIOLOGY ASSISTANT Sexual Orientation Straight 02/16/2021 2: 40 PM AUDIOLOGY ASSISTANT Last Filed Vital Signs Vital Sign Reading Time Taken Comments Blood Pressure 146/83 04/11/2021 1:09 PM AUDIOLOGY ASSISTANT Pulse 87 04/11/2021 1:09 PM AUDIOLOGY ASSISTANT Temperature 36.2 C (97.1 F) 04/11/2021 1:09 PM AUDIOLOGY ASSISTANT Respiratory Rate 18 04/11/2021 1:09 PM AUDIOLOGY ASSISTANT Oxygen Saturation 98% 04/11/2021 1:09 PM AUDIOLOGY ASSISTANT Inhaled Oxygen Concentration - - Weight 108.9 kg (240 lb) 04/11/2021 1:09 PM AUDIOLOGY ASSISTANT Height 175.3 cm (5' 9 ) 04/11/2021 1:09 PM AUDIOLOGY ASSISTANT Body Mass Index 35.44 04/11/2021 1:09 PM AUDIOLOGY ASSISTANT Plan of Treatment Health Maintenance Due Date Last Done Comments Cervical Cancer Screening Pap Smear (Age 21 to 29) Every 3 Years 2000 Cervical Cancer Screening 2000 Annual Physical 12/26/2003 Pneumococcal Vaccine: Pediatrics (0 to 5 Years) and At-Risk Patients (6 to 64 Years) (1 of 2 - PCV) 2006 12/30/2002, 07/25/2001, 05/08/2001, Additional history exists HPV Vaccines (2 - 2-dose series) 07/04/2011 01/02/2011 PHQ-2 (Physician Affectv) 2012 Meningococcal B Vaccine (1 of 2 - Standard) 2016 COVID-19 Vaccine ( - season) 2023 Influenza Adult (#1) 2024 PHQ-2 (Physician Affectv) 04/02/2024 DTaP, Tdap and Td Vaccines (8 - Td or Tdap) 02/16/2030 02/17/2020, 01/02/2011, 10/01/2006, Additional history exists Hepatitis B Vaccines Completed 12/30/2002, 05/08/2001, 03/12/2001, Additional history exists Hepatitis C Completed 01/21/2021 Meningococcal Vaccine Aged Out No esa aby eligible based on patient's age to complete this topic RSV Immunizations Under 20 Months Aged Out No longer eligible based on patient's age to complete this topic Procedures Procedure Name Priority Date/Time Associated Diagnosis Comments HEPATITIS C ANTIBODY Routine 01/21/2021 3:03 PM CDT Need for hepatitis C screening test from Last 3 Months or Most Recently Relevant to Health Maintenance Results * HEPATITIS C ANTIBODY (01/21/2021 3:03 PM CDT) HEPATITIS C AB NON-REACTI VE NON-REACTI VE 01/21/2021 5:16 PM CDT [facility] 01/21/2021 3:03 PM CDT Tamra Moran NP LABORATORY Final Result [facility] [address] [place] [address], from Last 3 Months or Most Recently Relevant to Health Maintenance Insurance CRESSEY CRESSEY Care Teams Universal Worker Assisted Living Relationship Specialty Start Date End Date Tamra Moran NP [address] [place] [address] PCP - General Nurse Practitioner Family 01/14/21
--- OUTSIDE RECORDS SUMMARY | 2024-06-06 01:17 | XMS_ITS | Clinical Summary ---
Author Organization [facility] [employer] Address [address] [place] [address] Care Team Providers Care Pathology Supervisor Name Role Phone Berkley De La Paz MD Primary Care Provider [phone] Berkley De La Paz MD Unavailable Source Comments [facility],non-owned Affiliates and Associated Physician Practices is amultiple site organization consisting of ambulatory clinics and hospital sitesin [place], [place], [place] and [place]. This disclosure is being madepursuant to the Care Everywhere program and may not contain all information available regarding this patient. Last updated 17.[facility] Allergies Active Allergy Reactions Criticality Noted Date [...] Mass Index - - Plan of Treatment Health Maintenance Due Date Last Done Comments PAP SMEAR 2000 HIV SCREENING 12/26/2015 HPV VACCINE (1 - 3-dose series) 12/26/2015 CHLAMYDIA/GONORRHEA SCREENING 2016 MENINGOCOCCAL (Group B) VACC INE (1 of 2 - Standard) 2016 HEPATITIS C SCREENING 12/21/2018 DTAP/TDAP/TD VACCINES (1 - Tdap) 12/26/2019 HEPATITIS B VACCINE (1 of 3 - 19+ 3-dose series) 12/26/2019 COVID-19 VACCINE (1 - 2023-2 5 season) 2023 INFLUENZA VACCINE (#1) 2023 DEPRESSION SCREENING 04/02/2024 ZOSTER VACCINE (1 of 2) 2050 HIB VACCINE Aged Out No longer eligi ble based on patient's age to complete this topic MENINGOCOCCAL VACCINE Aged Out No esa aby eligible based on patient's age to complete this topic PNEUMOCOCCAL VACCINE Aged Out No long er eligible based on patient's age to complete this topic Care Teams Pathology Supervisor Relationship Specialty Start Date End Date Berkley De La Paz MD [address] [place] [address] PCP - General 04/11/18 Berkley De La Paz MD [address] [facility] [address] [place] [address] Pediatrics 04/11/18
--- OUTSIDE RECORDS SUMMARY | 2024-06-06 01:17 | XMS_ITS | Encounter Summary ---
Author Organization [facility] Healthcare Address [address] [place] [address] Care Team Providers Care Research Project Manager Name Role Phone Samantha Olsen Primary Care Provider + Fatuma Theodore NP Primary Care Provider [phone] Garrett Sanders MD Primary Care Provider [phone] Encounter Details Date Type Department Care Team (Late st Contact Info) Description 01/10/2022 Telephone [facility] OP Physical Therapy [address] [place] [id number] Rosalva Hurley, PT Social History Tobacco Use Types Packs/Day Years Used Date Smoking Tobacco: Former Cigarettes Vaping Smokeless Tobacco: Never Alcohol Use Standard Drinks/Week Comments Yes 0 (1 standard drink = 0.6 oz pur e alcohol) occ AUDIT-C Answer Date Recorded Q1: How often do you have a drink containing alcohol? Never 12/13/2021 Q2: How many drinks containi ng alcohol do you have on a typical day when you are drinking? Patient does not drink Q3: How often do you have si x or more drinks on one occasion? Never 12/13/2021 PHQ-2 Answer Date Recorded PHQ-2 Total Score 6 08/30/2021 Comments No Sex and Gender Information Value Date Recorded Sex Assigned at Not on file Legal Sex Female 5:33 AM CLINICAL OB Gender Identity Not on file Sexual Orientation Not on file documented as of this encounter Plan of Treatment Not on file documented as of this encounter Visit Diagnoses Not on filedocumented in this encounter Additional Health Concerns Infection Onset Date Last Indicated Resolved Time COVID: Suspected 02/14/2023 02/14/2023 02/14/2023 2:34 PM CLINICAL OB COVID: Suspected 04/09/2023 04/09/2023 04/09/2023 11:05 PM CLINICAL OB documented as of this encounter Care Teams Research Project Manager Relationship Specialty Start Date End Date Samantha Olsen PA PCP - General Family Medicine 12/13/21 01/28/23 Fatuma Theodore NP [address] [place] [address] [place] [id number] PCP - General Family Medicine 01/29/23 04/08/23 Garrett Sanders MD [address] [place] [address] PCP - General Family Medicine 04/09/23 documented as of this encounter
--- OUTSIDE RECORDS SUMMARY | 2024-06-06 01:17 | XMS_ITS | Clinical Summary ---
Author Organization [facility] Address [address] [place] [address] Care Team Providers Care Grid Maker Name Role Phone Garrett Sanders MD Primary Care Provider [phone] Allergies Active Allergy Reactions Criticality Noted Date [...] mouth every 12 (twelve) hours 10 tablet 025 Active dicyclomine (BENTYL) 20 mg tablet Take 1 tablet (20 mg total) by mouth every 6 (six) hours 20 tablet 025 Active ondansetron ODT (ZOFRAN-ODT) 4 mg disintegrating tabletIndications :Nausea DISSOLVE 1 TABLET(4 MG) ON THE TONGUE EVERY 8 HOURS NEEDED FOR NAUSEA OR VOMITING 20 tablet 1 025 Active hydrocortisone 2.5 % cream APPLY TOPICALLY TO THE AFFECTED AREA TWICE DAILY 30 g 025 Active OLANZapine (ZyPREXA) 7.5 mg tabletIndications :Anxiety,Moderate episode of recurrent major depressive disorder (HCC) Take 1 tablet (7.5 mg total) by mouth nightly 30 tablet 025 Active hydrocortisone 2.5 % cream Apply topically [...] 02/14/2023 Assessment & Plan (02/14/2023 2:58 PM RENT CONTROL OFFICE MANAGER): Warm compresses every 4-6 hours for 5-10 minutes Frequent handwashing, lid massage Doxycycline po 100 mg BID x 7 days. Sunscreen use advised. Topical erythromycin ER for worsening, pain, streaking redness, worsening swelling, vision impairment Upper respiratory tract infection 02/14/2023 Assessment & Plan (02/14/2023 2:59 PM RENT CONTROL OFFICE MANAGER): Rapid strep negative Rapid covid, flu negative [...] 5pm. Assessment & Plan (04/19/2023 12:26 PM RENT CONTROL OFFICE MANAGER): Recommended aggressive Lifestyle modification and weight loss [...] rem ission 09/20/2021 Vitamin D deficiency 09/20/2021 CATRACOH (generalized anxiety disorder) 09/20/2021 Moderate episode of recurrent major depressive d isorder 09/20/2021 Post-surgical hypothyroidism 08/30/2021 Assessment & Plan (03/12/2023 3:27 PM RENT CONTROL OFFICE MANAGER): Continue current levothyroxine dose. Will check thyroid function test and adjust levothyroxine dose accordingly. TSH goal lower normal Assessment & Plan (02/13/2022 2:37 PM RENT CONTROL OFFICE MANAGER): Continue current levothyroxine dose. Will check thyroid function test and adjust levothyroxine dose accordingly. 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 Biochemical evaluation with thyroid tumor markers. We will also obtain neck ultrasound for evaluation of the neck. If above are in acceptable range, will plan follow-up on yearly basis Assessment & Plan (02/13/2022 2:38 PM RENT CONTROL OFFICE MANAGER): No evidence of tumor recurrence on biochemical [...] Encounter for STD screening;Recorded Elsewhere: No Location: [facility] Source: EHR Chronic: N Practice ID: [id number] Billable Time: 01:15:00 PM Contraceptive management 04/23/2018 Overview (04/19/2023): Encounter for routine checking of intrauterine contraceptive device;Recorded Elsewhere: No Location: [facility] Source: EHR Chronic: N Practice ID: [id number] Billable Time: 09:45:00 AM Pelvic and perineal pain 02/27/2018 Overview (04/19/2023): Pelvic and perineal pain;Recorded Elsewhere: No Location: [facility] Source: EHR Chronic: N Practice ID: [id number] Billable Time: 11:00:00 AM Menstrual cycle disorder 05/19/2015 Overview (04/19/2023): Menometrorrhagia;Recorded Elsewhere: No Location: [facility] Source: EHR Chronic: N Practice ID: [id number] Billable Time: 10:30:00 AM Irregular menses 01/09/2015 Resolved Problems Problem Noted Date Diagnosed Date Resolved Date Abscess of left thigh 06/14/20222022 Hypoglycemia 02/13/2022 01/29/2023 Assessment & Plan (02/13/2022 2:39 PM RENT CONTROL OFFICE MANAGER): No documented low blood sugar Advised BG monitoring with symptoms to establish correlation & inform further work up Positive FLORENCIO (antinuclear antibody) 10/14/2021 01/29/2023 Rash 09/20/2021 01/29/2023 Sore throat 09/20/2021 01/29/2023 Infectious mononucleosis without complication 09/05/1901/29/2023 Leg mass, left 09/09/2018 01/29/2023 Encounters Date Type Department Care Team Description 06/02/2024 Results Follow-Up [facility] at [address] [place] [address] Garrett Sanders MD 05/28/2024 2:19 PM RENT CONTROL OFFICE MANAGER - 05/28/2024 11:59 PM RENT CONTROL OFFICE MANAGER Hospital Encounter [facility] [address] [place] [address] Chronic pain of right knee Discharge Disposition: Discharge to home or self care 05/28/2024 2:10 PM RENT CONTROL OFFICE MANAGER Lab [facility] [address] [place] [address] Postoperative hypothyroidism 05/28/2024 Results Follow-Up [facility] at [address] [place] [address] Garrett Sanders MD 05/23/2024 Nurse Triage [facility] at [address] [place] [address] Garrett Sanders MD 05/23/2024 Nurse Triage [facility] at [address] [place] [address] Chata Sommer RN 05/22/2024 Telephone [facility] at [address] [place] [address] Derrek Dangelo MD 05/12/2024 5:53 PM RENT CONTROL OFFICE MANAGER - 05/12/2024 6:26 PM [facility] Emergency [facility] Emergency Department [address] [place] [id number] Colitis (Primary Dx) Discharge Disposition: Discharge to home or self care 05/12/2024 Nurse Triage [facility] at [address] [place] [address] Garrett Sanedrs MD 04/15/2024 10:25 AM RENT CONTROL OFFICE MANAGER - 04/15/2024 12:56 PM [facility] Emergency [facility] Emergency Department [address] [place] [address] Discharge Disposition: Left without being seen 03/19/2024 Telephone [facility] at [address] [place] [address] Garrett Sanders MD 3rd No Show Letter from Last 3 Months Immunizations Immunization Administration Dates Next Due DTaP [...] Patient Ref used) Tdap 02/17/2020,01/02/2011 Varicella 10/01/2006,12/30/2002 Surgical History Surgery Date Site/Laterality Comments TOTAL THYROIDECTOMY Medical History Medical History Date Comments Cancer (HCC) HSV (herpes simplex virus) infection Manic-depression (HCC) Thyroid cancer (HCC) Hypothyroidism Abscess of left thigh 06/14/2022 Positive FLORENCIO (antinuclear antibody) 10/14/2021 Anxiety Depression Hypertension Menstrual problem Family History Medical History Relation Name Comments Asthma Brother 4 Arnol Asthma Brother 5 Lauri Heart disease Father Daniel Mental illness Father Daniel No Known Problems Maternal Grandfather No Known Problems Maternal Grandmother Arthritis Mother Mercedes Asthma Mother Mercedes Autoimmune disease Mother Mercedes Hypertension Mother Mercedes Rheum arthritis Mother Mercedes Diabetes Paternal Grandfather Rohit Heart attack Paternal Grandfather Rohit Heart disease Paternal Grandfather Rohit Mental illness Paternal Grandfather Rohit Breast cancer Paternal Grandmother Rohit Cancer Paternal Grandmother Rohit Stroke Paternal Grandmother Rohit Relation Name Status Comments Brother 1 Alive Brother 2 Alive Brother 3 Alive Brother 4 Arnol Brother 5 Lauri Father Daniel Maternal Grandfather Maternal Grandmother Mother Mercedes Alive Paternal Grandfather Rohit Paternal Grandmother Rohit Sister Alive Social History Tobacco Use Types Packs/Day Years [...] on file Legal Sex Female 5:33 AM RENT CONTROL OFFICE MANAGER Gender Identity Not on file Sexual Orientation Not on file Obstetrics History Last Filed Vital Signs Vital Sign Reading Time Taken Comments Blood Pressure 109/76 05/12/2024 6:05 PM RENT CONTROL OFFICE MANAGER Pulse 55 05/12/2024 6:05 PM RENT CONTROL OFFICE MANAGER Temperature 36.3 C (97.3 F) 05/12/2024 2:11 PM RENT CONTROL OFFICE MANAGER Respiratory Rate 18 05/12/2024 6:05 PM RENT CONTROL OFFICE MANAGER Oxygen Saturation 98% 05/12/2024 6:05 PM RENT CONTROL OFFICE MANAGER Inhaled Oxygen Concentration - - Weight 118.1 kg (260 lb 5.8 oz) 05/12/2024 2:11 PM RENT CONTROL OFFICE MANAGER Height 172.7 cm (5' 8 ) 05/12/2024 2:11 PM RENT CONTROL OFFICE MANAGER Body Mass Index 39.59 05/12/2024 2:11 PM RENT CONTROL OFFICE MANAGER Plan of Treatment Health Maintenance Due Date Last Done Comments Cervical Cancer Screening 2000 HPV Vaccines (2 - 2-dose series) 07/04/2011 01/02/2011 Meningococcal B Vaccine (1 of 2 - Standard) 2016 Chlamydia and Gonorrhea (GC/CT) Screening 06/14/2023 06/13/2022, 03/28/2022, 02/01/2022 Regular Well Visit/Exam 18-64 06/28/2023 06/27/2022 Influenza Vaccine (#1) 2024 Postp oned from 12/02/2023 (Patient declined, but will receive in the future) Depression Screening 12/12/2024 12/13/2023, 12/13/2023, 06/27/2022, Additional history exists DTaP/Tdap/Td Vaccine (8 - Td or Tdap) 02/16/2030 02/17/2020, 01/02/2011, 10/01/2006, Additional history exists Hepatitis B Screening Completed 12/30/2002 , 05/08/2001, 03/12/2001, Additional history exists Pneumococcal vaccine <65 Completed 003, 07/25/2001, 05/08/2001, Additional history exists Varicella Vaccines Completed 10/01/2006, 12/30/2002 Hepatitis C Screening Completed 02/01/2022 Procedures Procedure Name Priority Date/Time Associated Diagnosis Comments XR KNEE RIGHT 4 OR MORE VIEWS Schedule Routine, Read Routine (OP Routine) 05/28/2024 2:35 PM RENT CONTROL OFFICE MANAGER Chronic pain of right knee T4, FREE Routine 05/28/2024 2:15 PM RENT CONTROL OFFICE MANAGER Postoperative hypothyroidism THYROID FUNCTION CASCADE Routine 05/28/2024 2:15 PM RENT CONTROL OFFICE MANAGER Postoperative hypothyroidism CTA ABDOMEN PELVIS W WO CONTRAST ED 05/12/2024 5:29 PM RENT CONTROL OFFICE MANAGER URINALYSIS AND REFLEX TO MICROSCOPIC AND CULTURE STAT 05/12/2024 5:03 PM RENT CONTROL OFFICE MANAGER POCT HCG, URINE Routine 05/12/2024 4:59 PM RENT CONTROL OFFICE MANAGER EGFR STAT 05/12/2024 2:20 PM RENT CONTROL OFFICE MANAGER DIFFERENTIAL AUTO STAT 05/12/2024 2:2 0 PM RENT CONTROL OFFICE MANAGER LIPASE STAT 05/12/2024 2:20 PM RENT CONTROL OFFICE MANAGER COMPREHENSIVE METABOLIC PANEL STAT 05/12/2024 2:20 PM RENT CONTROL OFFICE MANAGER CBC WITH AUTO DIFFERENTIAL STAT 05/12/2024 2:20 PM RENT CONTROL OFFICE MANAGER XR ELBOW RIGHT 3 OR MORE VIEWS ED 04/15/2024 12:01 PM RENT CONTROL OFFICE MANAGER XR HUMERUS RIGHT 2 OR MORE VIEWS ED 04/15/2024 11:21 AM RENT CONTROL OFFICE MANAGER POCT HCG, URINE Routine 04/15/2024 11:04 AM RENT CONTROL OFFICE MANAGER N. GONORRHOEAE/C. TRACHOMATIS AMPLIFICATION STAT 06/13/2022 3:09 PM CDT HEPATITIS PANEL, ACUTE STAT 02/01/2022 7:53 PM CDT from Last 3 Months or Most Recently Relevant to Health Maintenance Results * XR Knee Right 4 or More Views (05/28/2024 2:35 PM RENT CONTROL OFFICE MANAGER) Anatomical Region Laterality Modality Lower Extremities, Knee Right Computed Radiography 06/01/2024 7:27 AM RENT CONTROL OFFICE MANAGER Narrative 06/01/2024 7:28 AM RENT CONTROL OFFICE MANAGER EXAM DESCRIPTION: XR KNEE RIGHT 4 OR [...] by Arik Camacho M.D. T: Report ID: [id number] Reading Location: [id number] Procedure Note Arik Camacho MD - 06/01/2024 [...] by Arik Camacho M.D. T: Report ID: [id number] Reading Location: [id number] Garrett Sanders MD [facility] XR PROCEDURES Final Result * (ABNORMAL) Thyroid Function [place] (05/28/2024 2:15 PM RENT CONTROL OFFICE MANAGER) TSH 40.70(H) 0.30 - 4.20 mcIUnit/mL Blood 05/28/2024 2:15 PM RENT CONTROL OFFICE MANAGER 05/28/2024 2:30 PM RENT CONTROL OFFICE MANAGER Garrett Sanders MD LAB BLOOD ORDERABLES Final Resul t Performing Organization Address [facility] de Phone Number [id number] [place] [address] * T4, free (05/28/2024 2:15 PM RENT CONTROL OFFICE MANAGER) Free T4 1.03 0.90 - 1.70 ng/dL Blood 05/28/2024 2:15 PM RENT CONTROL OFFICE MANAGER 05/28/2024 2:30 PM RENT CONTROL OFFICE MANAGER Narrative [facility] 05/28/2024 4:15 PM RENT CONTROL OFFICE MANAGER This test was reflexed from a TSH result. Garrett Sanders MD LAB BLOOD ORDERABLES Final Resul t Performing Organization Address [facility] de Phone Number [address] [place] [address] * CTA Abdomen Pelvis (05/12/2024 5:29 PM RENT CONTROL OFFICE MANAGER) Anatomical Region Laterality Modality Body N/A Computed Tomogra phy 05/12/2024 5:33 PM RENT CONTROL OFFICE MANAGER Narrative 05/12/2024 5:39 PM RENT CONTROL OFFICE MANAGER EXAM DESCRIPTION: CTA ABDOMEN PELVIS REASON FOR [...] Zana Sanders D.O. PS: PS Report ID: [id number] Reading Location: [place] [address] Procedure Note Zana Sanders DO - 05/12/2024 [...] Zana Sanders D.O. PS: PS Report ID: [id number] Reading Location: [place] [address] PROCEDURES Final Result * Urinalysis reflex to microscopic and culture Urine (05/12/2024 5:03 PM RENT CONTROL OFFICE MANAGER) Color, ur Yellow Yellow Comment:Testing performed by : [address] [address] Clarity, ur Clear Clear AYSE Comment:Testing performed by : [address] [address] Specific gravity, ur 1.010 1.003 - 1.030 AYSE Comment:Testing performed by : [address] [address] pH, urine 7.0 AYSE Comment: Interpretive Data U rine pH is affected by diet, medications, systemic acid-base disturbances, and renal tubular function. pH may affect urinary stone formation. For example, urine pH below 6.0 may help reduce the tendency for calcium phosphate stones and pH greater than 6.0 may reduce the tendency for uric acid stone formation. Source: [employer] Current Interpretive Data was last revised on 2017 Testing performed by: [address] [address] Protein, ur ql Negative Negative AYSE Comment:Testing performed by : [address] [address] Glucose, ur ql Negative Negative AYSE Comment:Testing performed by : [address] [address] Ketones, ur Negative Negative AYSE Comment:Testing performed by : [address] [address] Bilirubin, ur Negative Negative AYSE Comment:Testing performed by : [address] [address] Blood, ur Negative Negative AYSE Comment:Testing performed by : [address], [place]., [address] Urobilinogen, ur <2.0 <2.0 mg/dL AYSE CORDERO Comment:Testing performed by : [address], [place]., [address] Nitrite, ur Negative Negative AYSE Comment:Testing performed by : [address], [place]., [address] Leukocyte esterase, ur Negative Negative AYSE Comment:Testing performed by : [address], [place]., [address] UA reflex comment Reflex conditions for microscopic UA and culture not met. AYSE Comment:Testing performed by : [address], [place]., [address] Urine 05/12/2024 5:03 PM RENT CONTROL OFFICE MANAGER 05/12/2024 5:10 PM RENT CONTROL OFFICE MANAGER Clifton Cain DO LAB MICROBIOLOGY - GENERAL ORDERABLES Final Result AYSE [address] [facility] Department [place] [address] * POCT hCG, urine (05/12/2024 4:59 PM RENT CONTROL OFFICE MANAGER) [facility] HCG, ur, POC Negative Negative Lot Number [id number] QC Backgroud Clear Acceptable QC Control Line Acceptable Urine 05/12/2024 4:59 PM RENT CONTROL OFFICE MANAGER Clifton Cain DO POINT OF CARE TEST ORDERABL ES Final Result * eGFR (05/12/2024 2:20 PM RENT CONTROL OFFICE MANAGER) [facility] eGFR 77 >=60 mL/min/1. 73 m2 Comment: [...] was last reviewed 2021. Testing performed by: [address] [address] Blood 05/12/2024 2:20 PM RENT CONTROL OFFICE MANAGER 05/12/2024 2:28 PM RENT CONTROL OFFICE MANAGER us Clifton Cain DO LAB BLOOD ORDERABLES Final Result AYSE [facility] Department [place] [address] * (ABNORMAL) Differential, auto (05/12/2024 2:20 PM RENT CONTROL OFFICE MANAGER) Neutrophil abs 5.4 1.5 - 6.5 K/cumm Comment:Testing performed by : [address] [address] Imm gran abs 0.0 0.0 - 0.1 K/cumm AYSE Comment:Testing performed by : [address] [address] Lymphocyte abs 2.0 0.8 - 3.3 K/cumm AYSE Comment:Testing performed by : [address] [address] Monocyte abs 1.0(H) 0.2 - 0.8 K/cumm AYSE Comment:Testing performed by : [address] [address] Eosinophil abs 0.1 0.0 - 0.5 K/cumm AYSE Comment:Testing performed by : [address] [address] Basophil abs 0.1 0.0 - 0.1 K/cumm AYSE Comment:Testing performed by : [address] [address] Neutrophil pct 62.9 % [facility] Comment: Interpretive Data Percent cell count reference ranges are not reported, since discordance with absolute values may lead to misinterpretation of CBC data. Current Interpretive Data was last revised on 2017. Testing performed by: [address] [address] Imm gran pct 0.2 % [facility] Comment: Interpretive Data Percent cell count reference ranges are not reported, since discordance with absolute values may lead to misinterpretation of CBC data. Current Interpretive Data was last revised on 2017. Testing performed by: [address] [address] Lymphocyte pct 23.4 % [facility] Comment: Interpretive Data Percent cell count reference ranges are not reported, since discordance with absolute values may lead to misinterpretation of CBC data. Current Interpretive Data was last revised on 2017. Testing performed by: [address] [address] Monocyte pct 11.3 % [facility] Comment: Interpretive Data Percent cell count reference ranges are not reported, since discordance with absolute values may lead to misinterpretation of CBC data. Current Interpretive Data was last revised on 2017. Testing performed by: [address] [address] Eosinophil pct 1.5 % [facility] Comment: Interpretive Data Percent cell count reference ranges are not reported, since discordance with absolute values may lead to misinterpretation of CBC data. Current Interpretive Data was last revised on 2017. Testing performed by: [address] [address] Basophil pct 0.7 % [facility] Comment: Interpretive Data Percent cell count reference ranges are not reported, since discordance with absolute values may lead to misinterpretation of CBC data. Current Interpretive Data was last revised on 2017. Testing performed by: [address] [address] Blood 05/12/2024 2:20 PM RENT CONTROL OFFICE MANAGER 05/12/2024 2:28 PM RENT CONTROL OFFICE MANAGER us Clifton Cain DO LAB BLOOD ORDERABLES Final Result [facility] [address] [facility] Department [place] [address] * (ABNORMAL) CBC with auto differential (05/12/2024 2:20 PM RENT CONTROL OFFICE MANAGER) Pathologist [facility] WBC 8.7 3.8 - 9.9 K/cumm Comment:Testing performed by : [address] [address] Hgb 15.5 11.9 - 15.5 g/dL AYSE Comment:Testing performed by : [address] [address] Hct 45.8(H) 35.6 - 45.5 % AYSE Comment:Testing performed by : [address] [address] Plt 416(H) 150 - 400 K/cumm AYSE Comment:Testing performed by : [address] [address] MPV 10.1 9.1 - 12.3 fL AYSE Comment:Testing performed by : [address] [address] RBC 4.82 3.90 - 5.20 M/cumm AYSE Comment:Testing performed by : [address] [address] MCV 95.0 81.3 - 96.4 fL AYSE Comment:Testing performed by : [address] [address] MCH 32.2 27.1 - 33.3 pg AYSE CORDERO Comment:Testing performed by : [address], [address] MCHC 33.8 32.3 - 35.7 g/dL AYSE CORDERO Comment:Testing performed by : [address] [place] [address] RDW CV 13.4 11.1 - 14.9 % AYSE CORDERO Comment:Testing performed by : [address] [address] RDW SD 47.4 35.7 - 48.1 fL AYSE CORDERO Comment:Testing performed by : [address] [address] NRBC abs 0.00 0.00 - 0.01 K/cumm AYSE CORDERO Comment:Testing performed by : [address] [address] Blood Venous blood specimen / Unknown 05/12/2024 2:20 PM RENT CONTROL OFFICE MANAGER 05/12/2024 2:28 PM RENT CONTROL OFFICE MANAGER Clifton Cain DO LAB BLOOD ORDERABLES Final Result Performing Organization Address [facility] Co de Phone Number [address] [place] [address] * Lipase (05/12/2024 2:20 PM RENT CONTROL OFFICE MANAGER) Lipase 24 10 - 99 Units/L Comment:Testing performed by : [address], [address] Blood Venous blood specimen / Unknown 05/12/2024 2:20 PM RENT CONTROL OFFICE MANAGER 05/12/2024 2:28 PM RENT CONTROL OFFICE MANAGER Clifton Cain LAB BLOOD ORDERABLES Final Result Performing Organization Address [facility] Co de Phone Number [address] [address] * Comprehensive metabolic panel (05/12/2024 2:20 PM RENT CONTROL OFFICE MANAGER) Sodium 137 135 - 145 mmol/L Comment:Testing performed by : [address] [address] Potassium, pl 4.0 3.3 - 4.9 mmol/L AYSE CORDERO Comment:Testing performed by : [address] [address] Chloride 101 97 - 110 mmol/L [facility] Comment:Testing performed by : [address], [place]., [address] CO2 23 22 - 32 mmol/L AYSE Comment:Testing performed by : [address], [place]., [address] Anion gap 13 2 - 15 mmol/L AYSE Comment:Testing performed by : [address], [place]., [address] BUN 7 6 - 25 mg/dL [facility] Comment:Testing performed by : [address], [place]., [address] Creatinine 1.05 0.60 - 1.10 mg/dL [facility] Comment:Testing performed by : [address], [place]., [address] Glucose 121 70 - 199 mg/dL [facility] Comment: Interpretive Data Fasting glucose >/= 126 [...] was last revised 2022. Testing performed by: [address] [address] Calcium 9.2 8.5 - 10.3 mg/dL [facility] Comment:Testing performed by : [address] [address] Bilirubin, total 1.0 0.1 - 1.2 mg/dL [facility] Comment:Testing performed by : [address] [address] Protein, pl 7.9 6.5 - 8.5 g/dL AYSE Comment:Testing performed by : [address], [place]., [address] Albumin 4.6 3.5 - 5.0 g/dL AYSE CORDERO Comment:Testing performed by : [facility], [address] [place] [address]., [address] Alk phos 52 40 - 130 Units/L AYSE CORDERO Comment:Testing performed by : [address] [address] ALT 18 7 - 45 Units/L AYSE CORDERO Comment:Testing performed by : [address] [address] AST 25 10 - 45 Units/L AYSE Comment:Testing performed by : [address] [address] Blood 05/12/2024 2:20 PM RENT CONTROL OFFICE MANAGER 05/12/2024 2:28 PM RENT CONTROL OFFICE MANAGER Clifton Cain DO LAB BLOOD ORDERABLES Final Result AYSE [address] [facility] Department [place] [address] * XR Elbow Right 3+ views (04/15/2024 12:01 PM RENT CONTROL OFFICE MANAGER) Anatomical Region Laterality Modality Upper Extremities, Elbow Right Compute d Radiography 04/15/2024 12:1 0 PM RENT CONTROL OFFICE MANAGER Narrative 04/15/2024 12:12 PM RENT CONTROL OFFICE MANAGER EXAM DESCRIPTION: XR ELBOW RIGHT 3 OR [...] Ric Nixon M.D. CH: HAYDEN Report ID: [id number] Reading Location: [id number] Procedure Note Ric Nixon Jr., MD - [...] Ric Nixon M.D. CH: [place]DEN Report ID: [id number] Reading Location: [id number] [facility] XR PROCEDURES Final Result * XR Humerus Right (04/15/2024 11:21 AM RENT CONTROL OFFICE MANAGER) Anatomical Region Laterality Modality Upper Extremities, Upper Arm Right Com puted Radiography 04/15/2024 11:4 6 AM RENT CONTROL OFFICE MANAGER Narrative 04/15/2024 11:47 AM RENT CONTROL OFFICE MANAGER EXAM DESCRIPTION: XR HUMERUS RIGHT 2 OR [...] Zana Sanders D.O. PS: PS Report ID: [id number] Reading Location: [id number] Procedure Note Zana Sanders DO - 04/15/2024 [...] Zana Sanders D.O. PS: PS Report ID: [id number] Reading Location: [place] [address] [facility] [facility] J[facility] CALIX IMG XR PROCEDURES Final Result * POCT hCG, urine (04/15/2024 11:04 AM RENT CONTROL OFFICE MANAGER) HCG, ur, POC Negative Negative Lot Number [id number] QC Backgroud Clear Acceptable QC Control Line Acceptable Urine 04/15/2024 11:0 4 AM RENT CONTROL OFFICE MANAGER [facility] J[facility] CALIX POINT OF CARE TEST ORDERABLES F inal Result * N. gonorrhoeae/C. trachomatis Amplification Urine (06/13/2022 3:09 PM CDT) Pathologist [facility] C. trachomatis Not Detected Not Detected AYSE CORDERO Comment:Testing performed by : [address] [address] N. gonorrhoeae Not Detected Not Detected AYSE CORDERO Comment: Interpretive Data Testing performed by the [facility]. This assay detects Chlamydia trachomatis and Neisseria gonorrhoeae by nucleic acid amplification testing (NAAT). This test is approved by the [place] Food and Drug Administration and the performance characteristics have been verified by the laboratory. The performance characteristics of this test have not been evaluated in individuals less than 14 years of age. Current Interpretive Data was last revised on 2019. Testing performed by: [facility], [address] [place] [address]., [id number] Urine (None) 06/13/2022 3:09 PM CDT 06/13/2022 4:09 PM CDT Maria Teresa OLIVA LAB MICROBIOLOGY - GENERAL ORDER SADIA Final Result Performing Organization Address [facility] Co de Phone Number AYSE CORDERO [address] [facility] [place] [address] * Hepatitis panel, acute (02/01/2022 7:53 PM CDT) Hep A IgM Nonreactive Nonreactive AYSE Comment: Interpretive Data: If Hep A IgM Ab is reported as Equivocal, a new sample should be drawn in two weeks for testing. Current interpretive data was last revised on 19. Hep B core IgM Nonreactive Nonreactive AYSE Comment: Interpretive Data If HepB Core IgM Ab is reported as Equivocal, a new sample should be drawn in two weeks for testing. Current interpretive data was last revised on 19. Hep C Ab Nonreactive Nonreactive [facility] Comment: Interpretive Data Nonreactive: Antibodies to HCV [...] last revised on 2019. HepBsAg Nonreactive Nonreactive [facility] Blood 02/01/2022 7:53 PM CDT 02/01/2022 11:28 PM CDT Liz Tucker DO LAB MICROBIOLOGY - GENERAL ORDE RABLES Final Result Performing Organization Address City/[facility]/ZIP Co de Phone Number AYSE [facility] [place] [address] from Last 3 Months or Most Recently Relevant to Health Maintenance Insurance [facility] Care Teams Grid Maker Relationship Specialty Start Date End Date Garrett Sanders MD [address] [place] [address] PCP - General Family Medicine 04/09/23
--- OUTSIDE RECORDS SUMMARY | 2024-06-06 01:17 | XMS_ITS | Encounter Summary ---
Author Organization [facility] Healthcare Address [address] [place] [address] Care Team Providers Care Plateman Name Role Phone Samantha Olsen Primary Care Provider + Fatuma Theodore NP Primary Care Provider [phone] Garrett Sanders MD Primary Care Provider [phone] Encounter Details Date Type Department Care Team (Late st Contact Info) Description 01/10/2022 Telephone 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
--- NOTE | 2024-06-06 06:33 | WPDHPUPDATE1 ---
History and Physical Update Update Date/Time: 06/06/24 06:33 History and Physical has been reviewed, including an updated exam of the patient. There are NO changes in the patient's condition. Risks, benefits, and alternatives have been discussed and questions answered. Patient agrees to proceed with procedure.
--- NOTE | 2024-06-06 08:48 | P.PNAN_ITS ---
Anes - Initial Pre Proc Eval Procedure: Operation Date: 06/06/24 10:30 Proposed Procedures p Diagnostic Laparoscopy - Giancarlo Miller MD Date/Time: 06/06/24 08:48 Surgeon: Giancarlo Miller MD Pre Op Diagnosis: pelvic pain, dyspareunia, dysmenorrhea Patient Data Age: 23 Gender: F Height: 1.74 m Weight: 123 kg Allergies Allergy/AdvReac Type Severity Reaction Status Date / Time adhesive tape Allergy Intermediate Rash Verified 05/26/24 15:38 lactose AdvReac Intermediate Diarrhea Verified 05/26/24 15:38 Home Medications ?Medication ?Instructions ?Recorded ?Confirmed ?Type amlodipine 10 mg tablet 10 mg PO DAILY 05/26/24 05/26/24 History atenolol 50 mg tablet 50 mg PO Q24H 05/26/24 05/26/24 History levothyroxine 200 mcg tablet 200 mcg PO DAILY 05/26/24 05/26/24 History levothyroxine 25 mcg tablet 25 mcg PO DAILY 05/26/24 05/26/24 History naproxen 500 mg tablet 500 mg PO Q8H 05/26/24 05/26/24 History olanzapine 7.5 mg tablet 7.5 mg PO QPM 05/26/24 05/26/24 History sertraline 100 mg tablet 100 mg PO Q24H 05/26/24 05/26/24 History hydrocodone 5 mg-acetaminophen 325 1 tablet PO Q4H PRN pain #20 tabs 06/06/24 Rx mg tablet Patient hx anesthesia problems: none Family hx anesthesia problems: none Results Review: All pre-operative results and documents have been reviewed as part of the pre- operative evaluation. [facility] Past Medical History Medical History (Updated 06/06/24 @ 08:54 by Virgilio Hair DO) Tachycardia Hypertension Hypothyroidism Depression Anxiety Thyroid cancer Social History Social History Smoking packs per day: 1 Smoking cigarettes per day: 20.0 Years smoked: 4 Smoking pack-years: 4.00 Smoking status: Former smoker Tobacco type: cigarettes Smoking end date: 04/02/20 Additional smoking assessment comments: Vapes now, vrs smoking Alcohol intake: never Substance use type: marijuana and other Other substance usage details: Vapes and Marijuana smokes daily Living arrangements: with family Additional living arrangements comments: Brother Spiritual care concerns: No Anes - Eval Final PreProcedure Day of Procedure 06/06/24 08:48 Patient weight: morbidly obese Heart: regular rate and rhythm Lungs: clear to auscultation Airway: Mallampati scale class II Neurological: alert and oriented Last oral intake: >/= 8 hours ASA classification: III Emergent: no Anesthetic plan: proceed Anesthesia type and monitoring: general ETT and standard monitoring Results Review: All pre-operative results and documents have been reviewed as part of the pre- operative evaluation. Informed Consent: The patient's anesthetic plan and its attendant risks and benefits were discussed with the patient/family/POA. Questions were solicited and answers provided to the satisfaction of the patient/family/POA.
[2024-06-06] MEDS: KETOROLAC 15 MG/ML VIAL (*BKC) IV PUSH (09:10)
[2024-06-06] MEDS: ACETAMINOPHEN 500 MG TABLET 1000 MG PO (09:10)
[2024-06-06 10:23] LABS: BEDSIDEPREGUCG Negative (Negative)
--- NOTE | 2024-06-06 10:33 | W.PM.PROC2 ---
Procedure Note - Detailed Date of Procedure 06/06/24 Pre-op Diagnosis pelvic pain, dyspareunia, dysmenorrhea Post-op Diagnosis Other (Pelvic pain dyspareunia dysmenorrhea endometriosis) Procedure Performed Laparoscopy with destruction endometriosis Surgeon Giancarlo Miller MD Anesthesia General Indications 23-year-old female with a history of severe pain dyspareunia Findings Blistered endometriosis each uterosacral ovaries and tubes appeared grossly within limits cyst at the uterus appendix liver. [id number] of serosanguineous fluid cul-de-sac Description of Procedure Patient was prepped draped in the normal sterile fashion placed in the dorsal lithotomy position. Under excellent general trach anesthesia weighted speculum placed in posterior fornix vagina. Anterior lip of the cervix grasped. With a single-tooth tenaculum to be used later for uterine manipulation. After emptying bladder clear urine the weighted speculum was removed the gloves were changed. Supraumbilical incision made the Veress needle passed in the abdomen. Abdomen filled with CO2 gas [id number]. The 5mm trocar advanced in the abdomen with the Optiview in no injury seen. Patient placed in Trendelenburg and a suprapubic incision made. The 5mm trocar advanced under direct visualization assuring no injury. [id number] of serosanguineous fluid seen in the cul-de-sac and this was suction and removed. Multiple areas of blistered endometriosis were seen along each uterosacral ligament and photo documentation undertaken. The ovaries and tubes appeared otherwise within normal limits as did the appendix gallbladder and liver edge. Using monopolar cautery these areas of a blistered endometriosis were cauterized at 35 w per 2nd until desiccation appeared. The instruments were then withdrawn after removal of the gas the trocars removed the incisions closed with 4 Monocryl and glue the patient went recovery in satisfactory condition. All sponge, needle, instrument counts were correct. There were no immediate complications Estimated Blood Loss 5 Drains No Packing No Pathology None sent Complications No immediate complications Condition Stable Disposition PACU
[2024-06-06] MEDS: LACTATED RINGERS 1,000 ML 30 ML IV CONT ×2 (10:46)
[2024-06-06] MEDS: fentaNYL CITRATE INJ (*CRX) 100 MCG/2 ML VIAL 25 MCG IV PUSH (11:34)
[2024-06-06] MEDS: oxyCODONE HCL (*CRX) 5 MG TAB IR PO (12:40)
== END 2024-06-06 13:04 | disposition home or self-care (01) ==
PROVIDERS: PCP Family Medicine; Visit Provider Obstetrics & Gynecology
PROC: (CPT 49320; principal; 2024-06-06 10:30)
DX: N80.3C3 Endometriosis of bilateral uterosacral ligament(s), unspecified depth (principal); R10.2 Pelvic and perineal pain; N94.10 Unspecified dyspareunia; N94.6 Dysmenorrhea, unspecified; F17.290 Nicotine dependence, other tobacco product, uncomplicated; F12.90 Cannabis use, unspecified, uncomplicated; E66.01 Morbid (severe) obesity due to excess calories; Z68.39 Body mass index [BMI] 39.0-39.9, adult
CPT/HCPCS: 58662; A9270; J1100; J1885; J2003; J2250; J2405; J2704; J3010; J7120

== ENCOUNTER 2024-07-07 22:28 | Emergency (ER) | payer OTHER, SELFPAY ==
--- NOTE | ~2024-07-07 | CT_ITS ---
Non-contrast Head CT History: Head injury Technique: Axial non-contrast imaging of the brain was performed. Dose reduction technique was used on this scan by utilizing automated exposure control and iterative reconstruction technique. The dose -length product (DLP) was 681.00 mGy-cm. Findings: There is no evidence of intracranial hemorrhage, mass lesion, or acute infarct. Brain par enchyma appears normal. The ventricles and subarachnoid spaces are normal in size. The calvarium ap pears normal. The visualized paranasal sinuses and mastoid air cells are clear. Impression: No significant abnormality seen. Reviewed, dictated and finalized at location . Impression: No significant abnormality seen.
--- NOTE | ~2024-07-07 | XR_ITS ---
Clinical Indication: Syncope PA and lateral views of the chest: Comparison: 10/06/2021 Findings: The lungs are clear, without evidence of focal consolidation or pleural effusion. Cardiome diastinal silhouette is within normal limits. Bones and soft tissues are unremarkable. Impression: Normal chest. Reviewed, dictated and finalized at location . Impression: Normal chest.
--- NOTE | ~2024-07-07 | CT_ITS ---
Clinical Indication: Shortness of breath CT Scan of the Chest with Contrast: Technique: Contiguous sections were acquired throughout the chest after intravenous administration of 100 cc of Omnipaque 350. Dose reduction technique was used on this scan by utilizing automated expos ure control and iterative reconstruction technique. The dose-length product (DLP) was 946.78 mGy-cm. Findings: There is no evidence of any significant mediastinal, hilar or axillary lymphadenopathy. There is no f illing defect in the pulmonary arterial tree to suggest pulmonary embolus. There is no evidence of ao rtic dissection or aneurysm. There is no evidence of pleural or pericardial effusion. The lungs are clear. No pulmonary nodules or infiltrates are noted. Images through the upper abdomen reveal no abnormalities. Impression: No evidence of pulmonary embolus, aortic dissection, or aortic aneurysm. Clear lungs. Reviewed, dictated and finalized at [facility]. Impression: No evidence of pulmonary embolus, aortic dissection, or aortic aneurysm. Clear lungs.
--- NOTE | ~2024-07-07 | CT_ITS ---
Noncontrast CT scan of the cervical spine Technique: Multiple contiguous axial [address] images of the cervical spine were obtained and rec onstructed in 2D sagittal and coronal planes on the acquisition scanner. Dose reduction technique was used on this scan by utilizing automated exposure control, adjustment of the mA and/or kV according to patient size. The dose-length product (DLP) was 594.39 mGy-cm. Clinical History: Pain Findings: No fractures or dislocations. There is mild reversal of the normal cervical lordosis. The intervertebral disc spaces are preserved. No prevertebral soft tissue swelling. Impression: Mild reversal of the normal cervical lordosis, otherwise unremarkable exam. Reviewed, dictated and finalized at location . Impression: Mild reversal of the normal cervical lordosis, otherwise unremarkable exam.
--- OUTSIDE RECORDS SUMMARY | 2024-07-07 22:32 | XMS_ITS | Encounter Summary ---
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
--- OUTSIDE RECORDS SUMMARY | 2024-07-07 22:32 | XMS_ITS | Clinical Summary ---
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 Gender Identity Not on file Sexual Orientation [...] 11-24 YEARS 12/26/2011 CERVICAL CANCER SCREENING 2021 HPV/Cotest (21-29) 2021 PAP SMEAR 2021 INFLUENZA VACCINE (#1) 2023 DTAP/TDAP/TD VACCINES (7 - T d or Tdap) 02/16/2030 02/17/2020, 01/02/2011, 10/01/2006, Additional history exists HEPATITIS B VACCINES Completed 12/30/2002, 05/08/2001, 03/12/2001, Additional history exists Insurance [facility] [employer] [facility] [employer] Advance Directives For more information, please contact: [phone] * Default Full Code - Needs Discussion (Latest Code Status on File) Date Activated Date Inactivated Comments 09/04/2021 8:56 AM 09/04/2021 2:27 PM * Full Code Date Activated Date Inactivated Comments 05/13/2018 1:26 PM 05/14/2018 11:46 AM Care Teams Fleet Sales Associate Relationship Specialty Start Date End Date Giancarlo Yeh MD PCP - General Family Practice 09/03/21
--- OUTSIDE RECORDS SUMMARY | 2024-07-07 22:32 | XMS_ITS | Encounter Summary ---
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 Gender Identity Not on file Sexual Orientation Not on file documented as of this encounter Plan of Treatment Not on file documented as of this encounter Visit Diagnoses Not on filedocumented in this encounter Additional Health Concerns Infection Onset Date Last Indicated Resolved Time COVID: Suspected 02/14/2023 02/14/2023 02/14/2023 2:34 PM RETURNED GOODS REPAIRER COVID: Suspected 04/09/2023 04/09/2023 04/09/2023 11:05 PM RETURNED GOODS REPAIRER documented as of this encounter Care Teams Bee Farmer Relationship Specialty Start Date End Date Samantha Olsen PA PCP - General Family Medicine 12/13/21 01/28/23 Fatuma Theodore NP [address] [place] [address] [place] [address] PCP - General Family Medicine 01/29/23 04/08/23 Garrett Sanders MD [address] [place] [address] [place] [address] PCP - General Family Medicine 04/09/23 documented as of this encounter
--- OUTSIDE RECORDS SUMMARY | 2024-07-07 22:32 | XMS_ITS | Clinical Summary ---
Author Organization [facility] Address [address] [place] [address] Care Team Providers Care Adult Manager Name Role Phone Garrett Sanders MD Primary Care Provider [phone] Allergies Active Allergy Reactions Criticality Noted Date [...] mouth nightly 90 tablet 3 024 Active levothyroxine (SYNTHROID) 200 mcg tabletIndications [...] MOUTH DAILY 100 tablet 1 024 Active valACYclovir (VALTREX) 1 gram tablet Take 2 tabs (2000 mg) 2 times a days for 1 day. 4 tablet 5 024 Active atenoloL (TENORMIN) 50 mg tablet [...] AREA TWICE DAILY 30 g 025 Active Linzess 145 mcg capsule TAKE 1 CAPSULE(145 MCG) BY MOUTH DAILY 30 capsule 2 025 Active OLANZapine (ZyPREXA) 7.5 mg tabletIndications :Anxiety,Moderate episode of recurrent major depressive disorder (HCC) Take 1 tablet (7.5 mg total) by mouth nightly 30 tablet 025 Active traMADoL (ULTRAM) 50 mg tabletIndications :Arthralgia, unspecified joint Take 1 tablet (50 mg total) by mouth every 8 (eight) hours as needed for pain 90 tablet 2 025 2024 Active cyclobenzaprine (FLEXERIL) 10 mg tablet Take 1 tablet (10 mg total) by mouth 2 (two) times a day as needed for muscle spasms 30 tablet 025 Active naproxen (NAPROSYN) 500 mg tablet Take 1 tablet (500 mg total) by mouth 2 (two) times a day as needed for pain 30 tablet 025 Active linaCLOtide (LINZESS) 145 mcg capsule Take 1 capsule (145 mcg total) by mouth daily 30 capsule 2 024 2024 Discontinued traMADoL (ULTRAM) 50 mg tabletIndications :Arthralgia, unspecified joint Take 1 tablet (50 mg total) by mouth daily as needed for pain 30 tablet 5 024 2024 Discontinued(R eorder) naproxen (NAPROSYN) 500 mg tabletIndications :Chronic pain of right knee TAKE 1 TABLET(500 MG) BY MOUTH TWICE DAILY NEEDED FOR PAIN 30 tablet 1 024 2024 Discontinued(R eorder) OLANZapine (ZyPREXA) 7.5 mg tabletIndications :Anxiety,Moderate episode of recurrent major depressive disorder (HCC) Take 1 tablet (7.5 mg total) by mouth nightly 30 tablet 025 2024 Discontinued(R eorder) Active Problems Problem Noted Date Diagnosed Date Acute pain of right knee 12/13/2023 Blepharitis of right upper eyelid 02/14/2023 Assessment & Plan (02/14/2023 2:58 PM POST ADOPTION COORDINATOR): Warm compresses every 4-6 hours for 5-10 minutes Frequent handwashing, lid massage Doxycycline po 100 mg BID x 7 days. Sunscreen use advised. Topical erythromycin ER for worsening, pain, streaking redness, worsening swelling, vision impairment Upper respiratory tract infection 02/14/2023 Assessment & Plan (02/14/2023 2:59 PM POST ADOPTION COORDINATOR): Rapid strep negative Rapid covid, flu negative [...] 5pm. Assessment & Plan (04/19/2023 12:26 PM POST ADOPTION COORDINATOR): Recommended aggressive Lifestyle modification and weight loss [...] 08/30/2021 Assessment & Plan (03/12/2023 3:27 PM POST ADOPTION COORDINATOR): Continue current levothyroxine dose. Will check thyroid function test and adjust levothyroxine dose accordingly. TSH goal lower normal Assessment & Plan (02/13/2022 2:37 PM POST ADOPTION COORDINATOR): Continue current levothyroxine dose. Will check thyroid function test and adjust levothyroxine dose accordingly. 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 Biochemical evaluation with thyroid tumor markers. We will also obtain neck ultrasound for evaluation of the neck. If above are in acceptable range, will plan follow-up on yearly basis Assessment & Plan (02/13/2022 2:38 PM POST ADOPTION COORDINATOR): No evidence of tumor recurrence on biochemical [...] Encounter for STD screening;Recorded Elsewhere: No Location: [facility] Source: EHR Chronic: N Practice ID: [id number] Billable Time: 01:15:00 PM Contraceptive management 04/23/2018 Overview (04/19/2023): Encounter for routine checking of intrauterine contraceptive device;Recorded Elsewhere: No Location: [facility] Source: EHR Chronic: N Practice ID: [id number] Billable Time: 09:45:00 AM Pelvic and perineal pain 02/27/2018 Overview (04/19/2023): Pelvic and perineal pain;Recorded Elsewhere: No Location: [facility] Source: EHR Chronic: N Practice ID: [id number] Billable Time: 11:00:00 AM Menstrual cycle disorder 05/19/2015 Overview (04/19/2023): Menometrorrhagia;Recorded Elsewhere: No Location: [facility] Source: EHR Chronic: N Practice ID: [id number] Billable Time: 10:30:00 AM Irregular menses 01/09/2015 Resolved Problems Problem Noted Date Diagnosed Date Resolved Date Abscess of left thigh 06/14/20222022 Hypoglycemia 02/13/2022 01/29/2023 Assessment & Plan (02/13/2022 2:39 PM POST ADOPTION COORDINATOR): No documented low blood sugar Advised BG monitoring with symptoms to establish correlation & inform further work up Positive FLORENCIO (antinuclear antibody) 10/14/2021 01/29/2023 Rash 09/20/2021 01/29/2023 Sore throat 09/20/2021 01/29/2023 Infectious mononucleosis without complication 09/05/1901/29/2023 Leg mass, left 09/09/2018 01/29/2023 Encounters Date Type Department Care Team Description 06/02/2024 Results Follow-Up [facility] Family Medicine at [address] [place] [address] Garrett Sanders MD 05/28/2024 2:19 PM POST ADOPTION COORDINATOR - 05/28/2024 11:59 PM POST ADOPTION COORDINATOR Hospital Encounter [facility] Diagnostic Imaging [address] [place] [phone] Chronic pain of right knee Discharge Disposition: Discharge to home or self care 05/28/2024 2:10 PM POST ADOPTION COORDINATOR Lab [facility] Lab [address] [place] [id number] Postoperative hypothyroidism 05/28/2024 Results Follow-Up [facility] Family Medicine at [address] [place] [address] Garrett Sanders MD 05/23/2024 Nurse Triage [facility] Family Medicine at [address] [place] [address] Garrett Sanders MD 05/23/2024 Nurse Triage [facility] Family Medicine at [address] [place] [address] Chata Sommer RN 05/22/2024 Telephone [facility] Gastroenterology at [address] [place] [address] Derrek Dangelo MD 05/12/2024 5:53 PM POST ADOPTION COORDINATOR - 05/12/2024 6:26 PM [facility] Emergency [facility] Emergency Department [address] [place] [address] Colitis (Primary Dx) Discharge Disposition: Discharge to home or self care 05/12/2024 Nurse Triage [facility] Family Medicine at [address] [place] [phone] Garrett Sanders MD 04/15/2024 10:25 AM POST ADOPTION COORDINATOR - 04/15/2024 12:56 PM [facility] Emergency [facility] Emergency Department [address] [place] [address] Discharge Disposition: Left without being seen from Last 3 Months Immunizations Immunization Administration [...] on file Legal Sex Female 5:33 AM POST ADOPTION COORDINATOR Gender Identity Not on file Sexual Orientation Not on file Obstetrics History Last Filed Vital Signs Vital Sign Reading Time Taken Comments Blood Pressure 109/76 05/12/2024 6:05 PM POST ADOPTION COORDINATOR Pulse 55 05/12/2024 6:05 PM POST ADOPTION COORDINATOR Temperature 36.3 C (97.3 F) 05/12/2024 2:11 PM POST ADOPTION COORDINATOR Respiratory Rate 18 05/12/2024 6:05 PM POST ADOPTION COORDINATOR Oxygen Saturation 98% 05/12/2024 6:05 PM POST ADOPTION COORDINATOR Inhaled Oxygen Concentration - - Weight 118.1 kg (260 lb 5.8 oz) 05/12/2024 2:11 PM POST ADOPTION COORDINATOR Height 172.7 cm (5' 8 ) 05/12/2024 2:11 PM POST ADOPTION COORDINATOR Body Mass Index 39.59 05/12/2024 2:11 PM POST ADOPTION COORDINATOR Plan of Treatment Health Maintenance Due Date Last Done Comments Cervical Cancer Screening 2000 HPV Vaccines (2 - 2-dose series) 07/04/2011 01/03/20 11 Meningococcal B Vaccine (1 o f 2 - Standard) 2016 Chlamydia and Gonorrhea (GC/ CT) Screening 06/14/2023 06/13/2022, 03/28/2022, 02/01/2022 Regular Well Visit/Exam 18-64 06/28/2023 06/27/2022 Influenza Vaccine (Season Ended) 2024 Depression Screening 12/12/2024 12/13/2023, 12/13/2023, 06/27/2022, Additional [...] Read Routine (OP Routine) 05/28/2024 2:35 PM POST ADOPTION COORDINATOR Chronic pain of right knee T4, FREE Routine 05/28/2024 2:15 PM POST ADOPTION COORDINATOR Postoperative hypothyroidism THYROID FUNCTION CASCADE Routine 05/28/2024 2:15 PM POST ADOPTION COORDINATOR Postoperative hypothyroidism CTA ABDOMEN PELVIS W WO CONTRAST ED 05/12/2024 5:29 PM POST ADOPTION COORDINATOR URINALYSIS AND REFLEX TO MICROSCOPIC AND CULTURE STAT 05/12/2024 5:03 PM POST ADOPTION COORDINATOR POCT HCG, URINE Routine 05/12/2024 4:59 PM POST ADOPTION COORDINATOR EGFR STAT 05/12/2024 2:20 PM POST ADOPTION COORDINATOR DIFFERENTIAL AUTO STAT 05/12/2024 2:2 0 PM POST ADOPTION COORDINATOR LIPASE STAT 05/12/2024 2:20 PM POST ADOPTION COORDINATOR COMPREHENSIVE METABOLIC PANEL STAT 05/12/2024 2:20 PM POST ADOPTION COORDINATOR CBC WITH AUTO DIFFERENTIAL STAT 05/12/2024 2:20 PM POST ADOPTION COORDINATOR XR ELBOW RIGHT 3 OR MORE VIEWS ED 04/15/2024 12:01 PM POST ADOPTION COORDINATOR XR HUMERUS RIGHT 2 OR MORE VIEWS ED 04/15/2024 11:21 AM POST ADOPTION COORDINATOR POCT HCG, URINE Routine 04/15/2024 11:04 AM POST ADOPTION COORDINATOR N. GONORRHOEAE/C. TRACHOMATIS AMPLIFICATION STAT 06/13/2022 3:09 PM CDT HEPATITIS PANEL, ACUTE STAT 02/01/2022 7:53 PM CDT from Last 3 Months or Most Recently Relevant to Health Maintenance Results * XR Knee Right 4 or More Views (05/28/2024 2:35 PM POST ADOPTION COORDINATOR) Anatomical Region Laterality Modality Lower Extremities, Knee Right Computed Radiography 06/01/2024 7:27 AM POST ADOPTION COORDINATOR Narrative 06/01/2024 7:28 AM POST ADOPTION COORDINATOR EXAM DESCRIPTION: XR KNEE RIGHT 4 OR [...] by Arik Camacho M.D. T: Report ID: [id number] Reading Location: [id number] Procedure Note Arik Camacho MD - 06/01/2024 [...] by Arik Camacho M.D. T: Report ID: [id number] Reading Location: [id number] Garrett Sanders MD IM XR PROCEDURES Final Result * (ABNORMAL) Thyroid Function [place] (05/28/2024 2:15 PM POST ADOPTION COORDINATOR) TSH 40.70(H) 0.30 - 4.20 mcIUnit/mL Blood 05/28/2024 2:15 PM POST ADOPTION COORDINATOR 05/28/2024 2:30 PM POST ADOPTION COORDINATOR Garrett Sanders MD LAB BLOOD ORDERABLES Final Resul t Performing Organization Address City/[facility] Co de Phone Number AYSE [address] [place] [address] * T4, free (05/28/2024 2:15 PM POST ADOPTION COORDINATOR) Free T4 1.03 0.90 - 1.70 ng/dL Blood 05/28/2024 2:15 PM POST ADOPTION COORDINATOR 05/28/2024 2:30 PM POST ADOPTION COORDINATOR Narrative AYSE - 05/28/2024 4:15 PM POST ADOPTION COORDINATOR This test was reflexed from a TSH result. Garrett Sanders MD LAB BLOOD ORDERABLES Final Resul t Performing Organization Address [facility] de Phone Number AYSE [address] [address] * CTA Abdomen Pelvis (05/12/2024 5:29 PM POST ADOPTION COORDINATOR) Anatomical Region Laterality Modality Body N/A Computed Tomogra phy 05/12/2024 5:33 PM POST ADOPTION COORDINATOR Narrative 05/12/2024 5:39 PM POST ADOPTION COORDINATOR EXAM DESCRIPTION: CTA ABDOMEN PELVIS REASON FOR [...] Zana Sanders D.O. PS: PS Report ID: [id number] Reading Location: [id number] Procedure Note Zana Sanders, DO - 05/12/2024 EXAM DESCRIPTION: CTA ABDOMEN [...] Zana Sanders D.O. PS: PS Report ID: [id number] Reading Location: [place] [address] PROCEDURES Final Result * Urinalysis reflex to microscopic and culture Urine (05/12/2024 5:03 PM POST ADOPTION COORDINATOR) Color, ur Yellow Yellow Comment:Testing performed by : [address] [address] Clarity, ur Clear Clear AYSE Comment:Testing performed by : [address] [address] Specific gravity, ur 1.010 1.003 - 1.030 AYSE Comment:Testing performed by : [address] [address] pH, urine 7.0 AYSE Comment: Interpretive Data U rine pH is affected by diet, medications, systemic acid-base disturbances, and renal tubular function. pH may affect urinary stone formation. For example, urine pH below 6.0 may help reduce the tendency for calcium phosphate stones and pH greater than 6.0 may reduce the tendency for uric acid stone formation. Source: [facility] GIV[facility] Current Interpretive Data was last revised on 2017 Testing performed by: [address] [address] Protein, ur ql Negative Negative AYSE Comment:Testing performed by : [address] [address] Glucose, ur ql Negative Negative AYSE Comment:Testing performed by : [address] [address] Ketones, ur Negative Negative AYSE Comment:Testing performed by : [address] [address] Bilirubin, ur Negative Negative AYSE Comment:Testing performed by : [address] [address] Blood, ur Negative Negative AYSE Comment:Testing performed by : [address] [address] Urobilinogen, ur <2.0 <2.0 mg/dL AYSE CORDERO Comment:Testing performed by : [facility], [address] [place] [address]., [address] Nitrite, ur Negative Negative AYSE Comment:Testing performed by : [address] [address] Leukocyte esterase, ur Negative Negative AYSE Comment:Testing performed by : [address], [place]., [address] UA reflex comment Reflex conditions for microscopic UA and culture not met. AYSE Comment:Testing performed by : [facility], [address] [place] [address], [place]., [address] Urine 05/12/2024 5:03 PM POST ADOPTION COORDINATOR 05/12/2024 5:10 PM POST ADOPTION COORDINATOR Clifton Cain DO LAB MICROBIOLOGY - GENERAL ORDERABLES Final Result Performing Organization Address City/State/[facility] Co de Phone Number AYSE [address] [facility] Department [place] [address] * POCT hCG, urine (05/12/2024 4:59 PM POST ADOPTION COORDINATOR) HCG, ur, POC Negative Negative Lot Number [id number] QC Backgroud Clear Acceptable QC Control Line Acceptable Urine 05/12/2024 4:59 PM POST ADOPTION COORDINATOR Clifton Cain DO POINT OF CARE TEST ORDERABL ES Final Result * eGFR (05/12/2024 2:20 PM POST ADOPTION COORDINATOR) eGFR 77 >=60 mL/min/1. 73 m2 Comment: [...] of Race in Diagnosing Kidney Disease, JASN 202). The CKD-EPI equation should not be used for patients with unstable renal function and has not been validated in children and those over 70. Current interpretive data was last reviewed 2021. Testing performed by: [address] [address] Blood 05/12/2024 2:20 PM POST ADOPTION COORDINATOR 05/12/2024 2:28 PM POST ADOPTION COORDINATOR us Clifton Cain DO LAB BLOOD ORDERABLES Final Result AYSE [facility] Department [place] [address] * (ABNORMAL) Differential, auto (05/12/2024 2:20 PM POST ADOPTION COORDINATOR) Neutrophil abs 5.4 1.5 - 6.5 K/cumm Comment:Testing performed by : [address] [address] Imm gran abs 0.0 0.0 - 0.1 K/cumm AYSE Comment:Testing performed by : [address] [address] Lymphocyte abs 2.0 0.8 - 3.3 K/cumm AYSE Comment:Testing performed by : [address] [address] Monocyte abs 1.0(H) 0.2 - 0.8 K/cumm AYSE Comment:Testing performed by : [address] [address] Eosinophil abs 0.1 0.0 - 0.5 K/cumm AYSE Comment:Testing performed by : [address] [address] Basophil abs 0.1 0.0 - 0.1 K/cumm AYSE Comment:Testing performed by : [address] [address] Neutrophil pct 62.9 % AYSE Comment: Interpretive Data Percent cell count reference ranges are not reported, since discordance with absolute values may lead to misinterpretation of CBC data. Current Interpretive Data was last revised on 2017. Testing performed by: [address] [address] Imm gran pct 0.2 % [facility] Comment: Interpretive Data Percent cell count reference ranges are not reported, since discordance with absolute values may lead to misinterpretation of CBC data. Current Interpretive Data was last revised on 2017. Testing performed by: [address] [address] Lymphocyte pct 23.4 % [facility] Comment: Interpretive Data Percent cell count reference ranges are not reported, since discordance with absolute values may lead to misinterpretation of CBC data. Current Interpretive Data was last revised on 2017. Testing performed by: [address] [address] Monocyte pct 11.3 % [facility] Comment: Interpretive Data Percent cell count reference ranges are not reported, since discordance with absolute values may lead to misinterpretation of CBC data. Current Interpretive Data was last revised on 2017. Testing performed by: [address] [address] Eosinophil pct 1.5 % [facility] Comment: Interpretive Data Percent cell count reference ranges are not reported, since discordance with absolute values may lead to misinterpretation of CBC data. Current Interpretive Data was last revised on 2017. Testing performed by: [address] [address] Basophil pct 0.7 % [facility] Comment: Interpretive Data Percent cell count reference ranges are not reported, since discordance with absolute values may lead to misinterpretation of CBC data. Current Interpretive Data was last revised on 2017. Testing performed by: [address] [address] Blood 05/12/2024 2:20 PM POST ADOPTION COORDINATOR 05/12/2024 2:28 PM POST ADOPTION COORDINATOR Clifton Cain DO LAB BLOOD ORDERABLES Final Result AYSE [address] [facility] Department [place] [address] * (ABNORMAL) CBC with auto differential (05/12/2024 2:20 PM POST ADOPTION COORDINATOR) [facility] WBC 8.7 3.8 - 9.9 K/cumm Comment:Testing performed by : [address] [address] Hgb 15.5 11.9 - 15.5 g/dL AYSE Comment:Testing performed by : [address] [address] Hct 45.8(H) 35.6 - 45.5 % AYSE Comment:Testing performed by : [address] [address] Plt 416(H) 150 - 400 K/cumm AYSE Comment:Testing performed by : [address] [address] MPV 10.1 9.1 - 12.3 fL AYSE Comment:Testing performed by : [address] [address] RBC 4.82 3.90 - 5.20 M/cumm AYSE Comment:Testing performed by : [address] [address] MCV 95.0 81.3 - 96.4 fL AYSE Comment:Testing performed by : [address] [address] MCH 32.2 27.1 - 33.3 pg AYSE Comment:Testing performed by : [address] [address] MCHC 33.8 32.3 - 35.7 g/dL AYSE Comment:Testing performed by : [address] [address] RDW CV 13.4 11.1 - 14.9 % AYSE Comment:Testing performed by : [address] [address] RDW SD 47.4 35.7 - 48.1 fL AYSE Comment:Testing performed by : [address] [address] NRBC abs 0.00 0.00 - 0.01 K/cumm AYSE CORDERO Comment:Testing performed by : [address] [address] Blood Venous blood specimen / Unknown 05/12/2024 2:20 PM POST ADOPTION COORDINATOR 05/12/2024 2:28 PM POST ADOPTION COORDINATOR Clifton Cain LAB BLOOD ORDERABLES Final Result Performing Organization Address [facility] Co de Phone Number [address] [place] [address] * Lipase (05/12/2024 2:20 PM POST ADOPTION COORDINATOR) [facility] Lipase 24 10 - 99 Units/L Comment:Testing performed by : [address] [address] Blood Venous blood specimen / Unknown 05/12/2024 2:20 PM POST ADOPTION COORDINATOR 05/12/2024 2:28 PM POST ADOPTION COORDINATOR Clifton Cain LAB BLOOD ORDERABLES Final Result Performing Organization Address City/[facility] Co de Phone Number [address] [place] [address] * Comprehensive metabolic panel (05/12/2024 2:20 PM POST ADOPTION COORDINATOR) [facility] Sodium 137 135 - 145 mmol/L Comment:Testing performed by : [address] [address] Potassium, pl 4.0 3.3 - 4.9 mmol/L AYSE CORDERO Comment:Testing performed by : [address] [address] Chloride 101 97 - 110 mmol/L AYSE CORDERO Comment:Testing performed by : [address] [address] CO2 23 22 - 32 mmol/L AYSE CORDERO Comment:Testing performed by : [address] [place]., [address] Anion gap 13 2 - 15 mmol/L AYSE Comment:Testing performed by : [address] [address] BUN 7 6 - 25 mg/dL AYSE Comment:Testing performed by : [address] [address] Creatinine 1.05 0.60 - 1.10 mg/dL AYSE Comment:Testing performed by : [address] [address] Glucose 121 70 - 199 mg/dL [facility] Comment: Interpretive Data Fasting glucose [...] classification and Diagnosis of Diabetes Diabetes Care 2021; 46: S19-S40. Current interpretive data was last revised 2022. Testing performed by: [address] [address] Calcium 9.2 8.5 - 10.3 mg/dL AYSE Comment:Testing performed by : [address] [address] Bilirubin, total 1.0 0.1 - 1.2 mg/dL [facility] Comment:Testing performed by : [address] [address] Protein, pl 7.9 6.5 - 8.5 g/dL AYSE Comment:Testing performed by : [address] [address] Albumin 4.6 3.5 - 5.0 g/dL AYES Comment:Testing performed by : [address] [address] Alk phos 52 40 - 130 Units/L AYSE Comment:Testing performed by : [address] [address] ALT 18 7 - 45 Units/L AYSE Comment:Testing performed by : [facility], [address] [place] [address]., [address] AST 25 10 - 45 Units/L AYES Comment:Testing performed by : [facility], [address] [place] [address]., [address] Blood 05/12/2024 2:20 PM POST ADOPTION COORDINATOR 05/12/2024 2:28 PM POST ADOPTION COORDINATOR us Clifton Cain DO LAB BLOOD ORDERABLES Final Result AYSE [address] [facility] Department [place] [address] * XR Elbow Right 3+ views (04/15/2024 12:01 PM POST ADOPTION COORDINATOR) Anatomical Region Laterality Modality Upper Extremities, Elbow Right Compute d Radiography 04/15/2024 12:1 0 PM POST ADOPTION COORDINATOR Narrative 04/15/2024 12:12 PM POST ADOPTION COORDINATOR EXAM DESCRIPTION: XR ELBOW RIGHT 3 OR [...] by Ric Nixon M.D. CH: Report ID: [id number] Reading Location: [id number] Procedure Note Ric Nixon Jr., MD - [...] Ric Nixon M.D. CH: HAYDEN Report ID: [id number] Reading Location: [id number] us [facility]hab Jab[facility] CALIX IMG XR PROCEDURES Final Result * XR Humerus Right (04/15/2024 11:21 AM POST ADOPTION COORDINATOR) Anatomical Region Laterality Modality Upper Extremities, Upper Arm Right Com puted Radiography 04/15/2024 11:4 6 AM POST ADOPTION COORDINATOR Narrative 04/15/2024 11:47 AM POST ADOPTION COORDINATOR EXAM DESCRIPTION: XR HUMERUS RIGHT 2 OR [...] Zana Sanders D.O. PS: PS Report ID: [id number] Reading Location: [id number] Procedure Note Zana Sanders DO - 04/15/2024 [...] Zana Sanders D.O. PS: PS Report ID: [id number] Reading Location: [place] [address] Tristen Barboza MD IMG XR PROCEDURES Final Result * POCT hCG, urine (04/15/2024 11:04 AM POST ADOPTION COORDINATOR) Pathologist [facility] HCG, ur, POC Negative Negative Lot Number [id number] QC Backgroud Clear Acceptable QC Control Line Acceptable Urine 04/15/2024 11:0 4 AM POST ADOPTION COORDINATOR Rehab Jab[facility] CALIX POINT OF CARE TEST ORDERABLES F inal Result * N. gonorrhoeae/C. trachomatis Amplification Urine (06/13/2022 3:09 PM CDT) [facility] C. trachomatis Not Detected Not Detected AYSE CORDERO Comment:Testing performed by : [facility], [address] [place] [address]., [address] N. gonorrhoeae Not Detected Not Detected AYSE CORDERO Comment: Interpretive Data Testing performed by the [facility]. This assay detects Chlamydia trachomatis and [...] last revised on 2019. Testing performed by: [facility], [address] [place] [address]., [address] Urine (None) 06/13/2022 3:09 PM CDT 06/13/2022 4:09 PM CDT Maria Teresa OLIVA LAB MICROBIOLOGY - GENERAL ORDER SADIA Final Result AYSE [address] [facility] [place] [address] * Hepatitis panel, acute (02/01/2022 7:53 PM [...] on 19. Hep C Ab Nonreactive Nonreactive [facility] Comment: Interpretive Data Nonreactive: Antibodies to HCV [...] last revised on 2019. HepBsAg Nonreactive Nonreactive AYSE Blood 02/01/2022 7:53 PM CDT 02/01/2022 11:28 PM CDT Liz Tucker DO LAB MICROBIOLOGY - GENERAL ORDE RUTH Final Result AYSE [address] [facility] [place] [address] from Last 3 Months or Most Recently Relevant to Health Maintenance Insurance [facility] Care Teams Adult Manager Relationship Specialty Start Date End Date Garrett Sanders MD [address] [place] [address] PCP - General Family Medicine 04/09/23
--- OUTSIDE RECORDS SUMMARY | 2024-07-07 22:32 | XMS_ITS | Referral Summary ---
Author Organization [facility] Address [address] [place] [address] Care Team Providers Care Managed Services Sales Consultant Name Role Phone Garrett Sanders MD Primary Care Provider [phone] Encounters Date Type Department Care Team Description 06/02/2024 Results Follow-Up [facility] Medical [facility] Family Medicine at [address] [place] [phone] Garrett Sanders MD 05/28/2024 Results Follow-Up [facility] Medical [facility] Family Medicine at [address] [place] [phone] Garrett Sanders MD 05/28/2024 2:19 PM DRILLER PORTABLE - 05/28/2024 11:59 PM DRILLER PORTABLE Hospital Encounter [facility] Diagnostic Imaging [address] [place] [address] Chronic pain of right knee Discharge Disposition: Discharge to home or self care 05/28/2024 2:10 PM DRILLER PORTABLE Lab [facility] Lab [address] [place] [address] Postoperative hypothyroidism 05/23/2024 Nurse Triage [facility] Medical [facility] Family Medicine at [address] [place] [phone] Garrett Sanders MD 05/23/2024 Nurse Triage [facility] Family Medicine at [address] [place] [phone] Chata Sommer RN 05/22/2024 Telephone [facility] Gastroenterology at [place] [address] [facility] [address] [place] [phone] Derrek Dangelo MD 05/12/2024 5:53 PM DRILLER PORTABLE - 05/12/2024 6:26 PM [facility] Emergency Department [address] [place] [address] Colitis (Primary Dx) Discharge Disposition: Discharge to home or self care 05/12/2024 Nurse Triage [facility] Family Medicine at [place] [address] [facility] [address] [place] [phone] Garrett Sanders MD 04/15/2024 10:25 AM DRILLER PORTABLE - 04/15/2024 12:56 PM [facility] Emergency Department [address] [place] [address] Discharge Disposition: Left without being seen from Last 3 Months Allergies Active Allergy [...] within 12 hours or as directed by . 5 [address] (PROTONIX) [...] 02/14/2023 Assessment & Plan (02/14/2023 2:58 PM DRILLER PORTABLE): Warm compresses every 4-6 hours for 5-10 minutes Frequent handwashing, lid massage Doxycycline po 100 mg BID x 7 days. Sunscreen use advised. Topical erythromycin ER for worsening, pain, streaking redness, worsening swelling, vision impairment Upper respiratory tract infection 02/14/2023 Assessment & Plan (02/14/2023 2:59 PM DRILLER PORTABLE): Rapid strep negative Rapid covid, flu negative [...] 5pm. Assessment & Plan (04/19/2023 12:26 PM DRILLER PORTABLE): Recommended aggressive Lifestyle modification and weight loss [...] 08/30/2021 Assessment & Plan (03/12/2023 3:27 PM DRILLER PORTABLE): Continue current levothyroxine dose. Will check thyroid function test and adjust levothyroxine dose accordingly. TSH goal lower normal Assessment & Plan (02/13/2022 2:37 PM DRILLER PORTABLE): Continue current levothyroxine dose. Will check thyroid function test and adjust levothyroxine dose accordingly. 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 Biochemical evaluation with thyroid tumor markers. We will also obtain neck ultrasound for evaluation of the neck. If above are in acceptable range, will plan follow-up on yearly basis Assessment & Plan (02/13/2022 2:38 PM DRILLER PORTABLE): No evidence of tumor recurrence on biochemical [...] Encounter for STD screening;Recorded Elsewhere: No Location: [facility] Source: EHR Chronic: N Practice ID: [id number] Billable Time: 01:15:00 PM Contraceptive management 04/23/2018 Overview (04/19/2023): Encounter for routine checking of intrauterine contraceptive device;Recorded Elsewhere: No Location: [facility] Source: EHR Chronic: N Practice ID: [id number] Billable Time: 09:45:00 AM Pelvic and perineal pain 02/27/2018 Overview (04/19/2023): Pelvic and perineal pain;Recorded Elsewhere: No Location: [facility] Source: EHR Chronic: N Practice ID: [id number] Billable Time: 11:00:00 AM Menstrual cycle disorder 05/19/2015 Overview (04/19/2023): Menometrorrhagia;Recorded Elsewhere: No Location: [facility] Source: EHR Chronic: N Practice ID: [id number] Billable Time: 10:30:00 AM Irregular menses 01/09/2015 Resolved Problems Problem Noted Date Diagnosed Date Resolved Date Abscess of left thigh 06/14/20222022 Hypoglycemia 02/13/2022 01/29/2023 Assessment & Plan (02/13/2022 2:39 PM DRILLER PORTABLE): No documented low blood sugar Advised BG [...] on file Legal Sex Female 5:33 AM DRILLER PORTABLE Gender Identity Not on file Sexual Orientation Not on file Last Filed Vital Signs Vital Sign Reading Time Taken Comments Blood Pressure 109/76 05/12/2024 6:05 PM DRILLER PORTABLE Pulse 55 05/12/2024 6:05 PM DRILLER PORTABLE Temperature 36.3 C (97.3 F) 05/12/2024 2:11 PM DRILLER PORTABLE Respiratory Rate 18 05/12/2024 6:05 PM DRILLER PORTABLE Oxygen Saturation 98% 05/12/2024 6:05 PM DRILLER PORTABLE Inhaled Oxygen Concentration - - Weight 118.1 kg (260 lb 5.8 oz) 05/12/2024 2:11 PM DRILLER PORTABLE Height 172.7 cm (5' 8 ) 05/12/2024 2:11 PM DRILLER PORTABLE Body Mass Index 39.59 05/12/2024 2:11 PM DRILLER PORTABLE Plan of Treatment Not on file Procedures Procedure Name Priority Date/Time Associated Diagnosis Comments XR KNEE RIGHT 4 OR MORE VIEWS Schedule Routine, Read Routine (OP Routine) 05/28/2024 2:35 PM DRILLER PORTABLE Chronic pain of right knee T4, FREE Routine 05/28/2024 2:15 PM DRILLER PORTABLE Postoperative hypothyroidism THYROID FUNCTION CASCADE Routine 05/28/2024 2:15 PM DRILLER PORTABLE Postoperative hypothyroidism CTA ABDOMEN PELVIS W WO CONTRAST ED 05/12/2024 5:29 PM DRILLER PORTABLE URINALYSIS AND REFLEX TO MICROSCOPIC AND CULTURE STAT 05/12/2024 5:03 PM DRILLER PORTABLE POCT HCG, URINE Routine 05/12/2024 4:59 PM DRILLER PORTABLE EGFR STAT 05/12/2024 2:20 PM DRILLER PORTABLE DIFFERENTIAL AUTO STAT 05/12/2024 2:2 0 PM DRILLER PORTABLE LIPASE STAT 05/12/2024 2:20 PM DRILLER PORTABLE COMPREHENSIVE METABOLIC PANEL STAT 05/12/2024 2:20 PM DRILLER PORTABLE CBC WITH AUTO DIFFERENTIAL STAT 05/12/2024 2:20 PM DRILLER PORTABLE XR ELBOW RIGHT 3 OR MORE VIEWS ED 04/15/2024 12:01 PM DRILLER PORTABLE XR HUMERUS RIGHT 2 OR MORE VIEWS ED 04/15/2024 11:21 AM DRILLER PORTABLE POCT HCG, URINE Routine 04/15/2024 11:04 AM DRILLER PORTABLE N. GONORRHOEAE/C. TRACHOMATIS AMPLIFICATION STAT 06/13/2022 3:09 PM CDT HEPATITIS PANEL, ACUTE STAT 02/01/2022 7:53 PM CDT from Last 3 Months or Most Recently Relevant to Health Maintenance Results * XR Knee Right 4 or More Views (05/28/2024 2:35 PM DRILLER PORTABLE) Anatomical Region Laterality Modality Lower Extremities, Knee Right Computed Radiography 06/01/2024 7:27 AM DRILLER PORTABLE Narrative 06/01/2024 7:28 AM DRILLER PORTABLE EXAM DESCRIPTION: XR KNEE RIGHT 4 OR [...] by Arik Camacho M.D. T: Report ID: [id number] Reading Location: [id number] Procedure Note Arik Camacho MD - 06/01/2024 [...] by Arik Camacho M.D. T: Report ID: [id number] Reading Location: [id number] Garrett Sanders MD IM XR PROCEDURES Final Result * (ABNORMAL) Thyroid Function [place] (05/28/2024 2:15 PM DRILLER PORTABLE) TSH 40.70(H) 0.30 - 4.20 mcIUnit/mL Blood 05/28/2024 2:15 PM DRILLER PORTABLE 05/28/2024 2:30 PM DRILLER PORTABLE Garrett Sanders MD LAB BLOOD ORDERABLES Final Resul t Performing Organization Address City/[facility] Co de Phone Number AYSE [facility] [place] [address] * T4, free (05/28/2024 2:15 PM DRILLER PORTABLE) Free T4 1.03 0.90 - 1.70 ng/dL Blood 05/28/2024 2:15 PM DRILLER PORTABLE 05/28/2024 2:30 PM DRILLER PORTABLE Narrative AYSE - 05/28/2024 4:15 PM DRILLER PORTABLE This test was reflexed from a TSH result. Garrett Sanders MD LAB BLOOD ORDERABLES Final Resul t Performing Organization Address [facility] [[email or web address]] de Phone Number AYSE [address] [address] * CTA Abdomen Pelvis (05/12/2024 5:29 PM DRILLER PORTABLE) Anatomical Region Laterality Modality Body N/A Computed Tomogra phy 05/12/2024 5:33 PM DRILLER PORTABLE Narrative 05/12/2024 5:39 PM DRILLER PORTABLE EXAM DESCRIPTION: CTA ABDOMEN PELVIS REASON FOR [...] Zana Sanders D.O. PS: PS Report ID: [id number] Reading Location: [id number] Procedure Note Zana Sanders DO - 05/12/2024 [...] Zana Sanders D.O. PS: PS Report ID: [id number] Reading Location: [place] [address] PROCEDURES Final Result * Urinalysis reflex to microscopic and culture Urine (05/12/2024 5:03 PM DRILLER PORTABLE) Color, ur Yellow Yellow Comment:Testing performed by : [address] [address] Clarity, ur Clear Clear AYSE Comment:Testing performed by : [address] [address] Specific gravity, ur 1.010 1.003 - 1.030 AYSE Comment:Testing performed by : [address] [address] pH, urine 7.0 AYSE Comment: Interpretive Data U rine pH is affected by diet, medications, systemic acid-base disturbances, and renal tubular function. pH may affect urinary stone formation. For example, urine pH below 6.0 may help reduce the tendency for calcium phosphate stones and pH greater than 6.0 may reduce the tendency for uric acid stone formation. Source: [facility] [place] Current Interpretive Data was last revised on 2017 Testing performed by: [address] [address] Protein, ur ql Negative Negative AYSE Comment:Testing performed by : [address] [address] Glucose, ur ql Negative Negative AYSE Comment:Testing performed by : [address] [address] Ketones, ur Negative Negative AYSE Comment:Testing performed by : [address] [address] Bilirubin, ur Negative Negative AYSE Comment:Testing performed by : [address] [address] Blood, ur Negative Negative AYSE Comment:Testing performed by : [address] [address] Urobilinogen, ur <2.0 <2.0 mg/dL AYSE CORDERO Comment:Testing performed by : [facility], [address] [place] [address]., [address] Nitrite, ur Negative Negative AYSE CORDERO Comment:Testing performed by : [address] [address] Leukocyte esterase, ur Negative Negative AYSE Comment:Testing performed by : [address] [address] UA reflex comment Reflex conditions for microscopic UA and culture not met. AYSE Comment:Testing performed by : [facility], [address] [place] [address], [place]., [address] Urine 05/12/2024 5:03 PM DRILLER PORTABLE 05/12/2024 5:10 PM DRILLER PORTABLE Clifton Cain DO LAB MICROBIOLOGY - GENERAL ORDERABLES Final Result Performing Organization Address City/State/[facility] Co de Phone Number AYSE [address] [facility] Department [place] [address] * POCT hCG, urine (05/12/2024 4:59 PM DRILLER PORTABLE) HCG, ur, POC Negative Negative Lot Number [id number] QC Backgroud Clear Acceptable QC Control Line Acceptable Urine 05/12/2024 4:59 PM DRILLER PORTABLE Clifton Cain DO POINT OF CARE TEST ORDERABL ES Final Result * eGFR (05/12/2024 2:20 PM DRILLER PORTABLE) eGFR 77 >=60 mL/min/1. 73 m2 Comment: [...] was last reviewed 2021. Testing performed by: [address] [address] Blood 05/12/2024 2:20 PM DRILLER PORTABLE 05/12/2024 2:28 PM DRILLER PORTABLE us Clifton Cain DO LAB BLOOD ORDERABLES Final Result AYSE [address] [facility] Department [place] [address] * (ABNORMAL) Differential, auto (05/12/2024 2:20 PM DRILLER PORTABLE) Neutrophil abs 5.4 1.5 - 6.5 K/cumm Comment:Testing performed by : [address] [address] Imm gran abs 0.0 0.0 - 0.1 K/cumm AYSE Comment:Testing performed by : [address] [address] Lymphocyte abs 2.0 0.8 - 3.3 K/cumm AYSE Comment:Testing performed by : [address] [address] Monocyte abs 1.0(H) 0.2 - 0.8 K/cumm AYSE Comment:Testing performed by : [address] [address] Eosinophil abs 0.1 0.0 - 0.5 K/cumm AYSE Comment:Testing performed by : [address] [address] Basophil abs 0.1 0.0 - 0.1 K/cumm AYSE Comment:Testing performed by : [address] [address] Neutrophil pct 62.9 % AYSE Comment: Interpretive Data Percent cell count reference ranges are not reported, since discordance with absolute values may lead to misinterpretation of CBC data. Current Interpretive Data was last revised on 2017. Testing performed by: [address] [address] Imm gran pct 0.2 % AYSE Comment: Interpretive Data Percent cell count reference ranges are not reported, since discordance with absolute values may lead to misinterpretation of CBC data. Current Interpretive Data was last revised on 2017. Testing performed by: [address] [address] Lymphocyte pct 23.4 % [facility] Comment: Interpretive Data Percent cell count reference ranges are not reported, since discordance with absolute values may lead to misinterpretation of CBC data. Current Interpretive Data was last revised on 2017. Testing performed by: [address] [address] Monocyte pct 11.3 % [facility] Comment: Interpretive Data Percent cell count reference ranges are not reported, since discordance with absolute values may lead to misinterpretation of CBC data. Current Interpretive Data was last revised on 2017. Testing performed by: [address] [address] Eosinophil pct 1.5 % [facility] Comment: Interpretive Data Percent cell count reference ranges are not reported, since discordance with absolute values may lead to misinterpretation of CBC data. Current Interpretive Data was last revised on 2017. Testing performed by: [address] [address] Basophil pct 0.7 % [facility] Comment: Interpretive Data Percent cell count reference ranges are not reported, since discordance with absolute values may lead to misinterpretation of CBC data. Current Interpretive Data was last revised on 2017. Testing performed by: [address] [address] Blood 05/12/2024 2:20 PM DRILLER PORTABLE 05/12/2024 2:28 PM DRILLER PORTABLE Clifton Cain DO LAB BLOOD ORDERABLES Final Result AYSE [address] [facility] Department [place] [address] * (ABNORMAL) CBC with auto differential (05/12/2024 2:20 PM DRILLER PORTABLE) WBC 8.7 3.8 - 9.9 K/cumm Comment:Testing performed by : [address] [address] Hgb 15.5 11.9 - 15.5 g/dL AYSE Comment:Testing performed by : [address] [address] Hct 45.8(H) 35.6 - 45.5 % AYSE Comment:Testing performed by : [address] [address] Plt 416(H) 150 - 400 K/cumm AYSE Comment:Testing performed by : [address] [address] MPV 10.1 9.1 - 12.3 fL AYSE Comment:Testing performed by : [address] [address] RBC 4.82 3.90 - 5.20 M/cumm AYSE Comment:Testing performed by : [address] [address] MCV 95.0 81.3 - 96.4 fL AYSE Comment:Testing performed by : [address] [address] MCH 32.2 27.1 - 33.3 pg AYSE Comment:Testing performed by : [address] [address] MCHC 33.8 32.3 - 35.7 g/dL AYSE Comment:Testing performed by : [address] [address] RDW CV 13.4 11.1 - 14.9 % AYSE Comment:Testing performed by : [address] [address] RDW SD 47.4 35.7 - 48.1 fL AYSE CORDERO Comment:Testing performed by : [address] [address] NRBC abs 0.00 0.00 - 0.01 K/cumm AYSE CORDERO Comment:Testing performed by : [address] [address] Blood Venous blood specimen / Unknown 05/12/2024 2:20 PM DRILLER PORTABLE 05/12/2024 2:28 PM DRILLER PORTABLE Clifton Cain LAB BLOOD ORDERABLES Final Result Performing Organization Address [facility] Co de Phone Number [address] [place] [address] * Lipase (05/12/2024 2:20 PM DRILLER PORTABLE) Pathologist [facility] Lipase 24 10 - 99 Units/L Comment:Testing performed by : [address] [address] Blood Venous blood specimen / Unknown 05/12/2024 2:20 PM DRILLER PORTABLE 05/12/2024 2:28 PM DRILLER PORTABLE Clifton Cain LAB BLOOD ORDERABLES Final Result Performing Organization Address [facility] Co de Phone Number [address] [address] * Comprehensive metabolic panel (05/12/2024 2:20 PM DRILLER PORTABLE) Pathologist [facility] Sodium 137 135 - 145 mmol/L Comment:Testing performed by : [address] [address] Potassium, pl 4.0 3.3 - 4.9 mmol/L AYSE CORDERO Comment:Testing performed by : [address] [address] Chloride 101 97 - 110 mmol/L AYSE CORDERO Comment:Testing performed by : [address] [address] CO2 23 22 - 32 mmol/L AYSE CORDERO Comment:Testing performed by : [address] [address] Anion gap 13 2 - 15 mmol/L AYSE Comment:Testing performed by : [address] [address] BUN 7 6 - 25 mg/dL AYSE Comment:Testing performed by : [address], [place]., [address] Creatinine 1.05 0.60 - 1.10 mg/dL AYSE Comment:Testing performed by : [address] [address] Glucose 121 70 - 199 mg/dL AYSE [...] was last revised 2022. Testing performed by: [address] [address] Calcium 9.2 8.5 - 10.3 mg/dL AYSE Comment:Testing performed by : [address] [address] Bilirubin, total 1.0 0.1 - 1.2 mg/dL AYSE Comment:Testing performed by : [address] [address] Protein, pl 7.9 6.5 - 8.5 g/dL AYSE Comment:Testing performed by : [address] [address] Albumin 4.6 3.5 - 5.0 g/dL AYSE Comment:Testing performed by : [address] [address] Alk phos 52 40 - 130 Units/L AYSE Comment:Testing performed by : [address] [address] ALT 18 7 - 45 Units/L AYSE Comment:Testing performed by : [facility], [address] [place] [address]., [address] AST 25 10 - 45 Units/L AYSE Comment:Testing performed by : [facility], [address] [place] [address]., [address] Blood 05/12/2024 2:20 PM DRILLER PORTABLE 05/12/2024 2:28 PM DRILLER PORTABLE us Clifton Cain DO LAB BLOOD ORDERABLES Final Result AYSE [address] [facility] Department [place] [address] * XR Elbow Right 3+ views (04/15/2024 12:01 PM DRILLER PORTABLE) Anatomical Region Laterality Modality Upper Extremities, Elbow Right Compute d Radiography 04/15/2024 12:1 0 PM DRILLER PORTABLE Narrative 04/15/2024 12:12 PM DRILLER PORTABLE EXAM DESCRIPTION: XR ELBOW RIGHT 3 OR [...] by Ric Nixon M.D. CH: Report ID: [id number] Reading Location: [id number] Procedure Note Ric Nixon Jr., MD - [...] Ric Nixon M.D. CH: HAYDEN Report ID: [id number] Reading Location: [id number] [facility] Jabari CALIX IMG XR PROCEDURES Final Result * XR Humerus Right (04/15/2024 11:21 AM DRILLER PORTABLE) Anatomical Region Laterality Modality Upper Extremities, Upper Arm Right Com puted Radiography 04/15/2024 11:4 6 AM DRILLER PORTABLE Narrative 04/15/2024 11:47 AM DRILLER PORTABLE EXAM DESCRIPTION: XR HUMERUS RIGHT 2 OR [...] Electronically signed by Zana Sanders D.O. PS: MICKIE Report ID: [id number] Reading Location: [id number] Procedure Note Zana Sanders DO - 04/15/2024 [...] Electronically signed by Zana Sanders D.O. PS: MICKIE Report ID: [id number] Reading Location: [place] [address] Tristen Barboza MD IMG XR PROCEDURES Final Result * POCT hCG, urine (04/15/2024 11:04 AM DRILLER PORTABLE) HCG, ur, POC Negative Negative Lot Number [id number] QC Backgroud Clear Acceptable QC Control Line Acceptable Urine 04/15/2024 11:0 4 AM DRILLER PORTABLE Tristen Barboza MD POINT OF CARE TEST ORDERABLES F inal Result * N. gonorrhoeae/C. trachomatis Amplification Urine (06/13/2022 3:09 PM CDT) Pathologist [facility] C. trachomatis Not Detected Not Detected AYSE CORDERO Comment:Testing performed by : [facility], [address] [place] [address]., [address] N. gonorrhoeae Not Detected Not Detected AYSE CORDERO Comment: Interpretive Data Testing performed by the [facility]. This assay detects Chlamydia trachomatis [...] last revised on 2019. Testing performed by: [facility], [address] [place] [address]., [address] Urine (None) 06/13/2022 3:09 PM CDT 06/13/2022 4:09 PM CDT Maria Teresa OLIVA LAB MICROBIOLOGY - GENERAL ORDER SADIA Final Result AYSE [address] [facility] Department [place] [address] * Hepatitis panel, acute (02/01/2022 7:53 PM CDT) Hep A IgM Nonreactive Nonreactive AYSE Comment: Interpretive Data: If Hep A IgM Ab is reported as Equivocal, a new sample should be drawn in two weeks for testing. Current interpretive data was last revised on 19. Hep B core IgM Nonreactive Nonreactive [facility] Comment: Interpretive Data If HepB Core IgM Ab is reported as Equivocal, a new sample should be drawn in two weeks for testing. Current interpretive data was last revised on 19. Hep C Ab Nonreactive Nonreactive [facility] Comment: Interpretive Data Nonreactive: Antibodies to HCV [...] last revised on 2019. HepBsAg Nonreactive Nonreactive [facility] Blood 02/01/2022 7:53 PM CDT 02/01/2022 11:28 PM CDT Liz Tucker DO LAB MICROBIOLOGY - GENERAL ORDE RUTH Final Result AYSE [address] [facility] Department [place] [address] from Last 3 Months or Most Recently Relevant to Health Maintenance Insurance [facility] Care Teams Managed Services Sales Consultant Relationship Specialty Start Date End Date Garrett Sanders MD [address] [facility] [place] [address] PCP - General Family Medicine 04/09/23
--- OUTSIDE RECORDS SUMMARY | 2024-07-07 22:32 | XMS_ITS | Clinical Summary ---
Author Organization [facility] Address [address] [place] [address] Care Team Providers Care Developing Machine Operator Name Role Phone Berkley De La Paz MD Primary Care Provider [phone] Berkley De La Paz MD Unavailable [phone] Source Comments [facility],non-owned Affiliates and Associated Physician Practices is amultiple site organization consisting of ambulatory clinics and hospital sitesin [place], [place], [place] and [place]. This disclosure is being madepursuant to the Care Everywhere program and may not contain all information available regarding this patient. Last updated 17.[facility] Allergies Active Allergy Reactions Criticality Noted [...] SCREENING 2016 MENINGOCOCCAL (Group B) VACC INE SHARED DECISION-MAKING (1 of 2 - Standard) 2016 HEPATITIS C SCREENING 12/21/2018 DTAP/TDAP/TD VACCINES (1 - Tdap) 12/26/2019 HEPATITIS B VACCINE (1 of 3 - 19+ 3-dose series) 12/26/2019 COVID-19 VACCINE (1 - 2023-2 5 season) 2023 DEPRESSION SCREENING 04/02/2024 INFLUENZA VACCINE (Season Ended) 2024 ZOSTER VACCINE (1 of 2) 2050 HIB VACCINE Aged Out No longer eligi ble based on patient's age to complete this topic MENINGOCOCCAL GROUPS A/C/Y/W VACCINE Aged Out No longer eligible b ased on patient's age to complete this topic PNEUMOCOCCAL VACCINE Aged Out No long er eligible based on patient's age to complete this topic Care Teams Developing Machine Operator Relationship Specialty Start Date End Date Berkley De La Paz MD [address] [place] [address] PCP - General 04/11/18 Berkley De La Paz MD [address] [id number] Pediatrics 04/11/18
--- OUTSIDE RECORDS SUMMARY | 2024-07-07 22:32 | XMS_ITS | Encounter Summary ---
Author Organization [facility] Healthcare Address [address] [place] [address] Care Team Providers Care Asphalt Machine Operator Name Role Phone Garrett Sanders MD Primary Care Provider [phone] Encounter Details Date Type Department Care Team (Late st Contact Info) Description 05/28/2024 Results Follow-Up [facility] Medical [facility] Family Medicine at [address] [place] [address] Garrett Sanders MD [address] [place] [address] [address] [place] [address] Social History Tobacco Use Types Packs/Day Years [...] on file Legal Sex Female 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 COMMUNICATIONS SPECIALIST documented in this encounter Plan of Treatment Not on file documented as of this encounter Visit Diagnoses Not on filedocumented in this encounter Care Teams Asphalt Machine Operator Relationship Specialty Start Date End Date Garrett Sanders MD [address] [place] [address] PCP - General Family Medicine 04/09/23 documented as of this encounter
--- OUTSIDE RECORDS SUMMARY | 2024-07-07 22:32 | XMS_ITS | Encounter Summary ---
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 Gender Identity Not on file Sexual Orientation Not on file documented as of this encounter Plan of Treatment Not on file documented as of this encounter Visit Diagnoses Not on filedocumented in this encounter Additional Health Concerns Infection Onset Date Last Indicated Resolved Time COVID: Suspected 02/14/2023 02/14/2023 02/14/2023 2:34 PM LINDERMAN OPERATOR COVID: Suspected 04/09/2023 04/09/2023 04/09/2023 11:05 PM LINDERMAN OPERATOR documented as of this encounter Care Teams Science Consultant Relationship Specialty Start Date End Date Samantha Olsen PA PCP - General Family Medicine 12/13/21 01/28/23 Fatuma Theodore NP [address] [place] [address] [place] [id number] PCP - General Family Medicine 01/29/23 04/08/23 Garrett Sanders MD [address] [place] [address] [place] [id number] PCP - General Family Medicine 04/09/23 documented as of this encounter
--- OUTSIDE RECORDS SUMMARY | 2024-07-07 22:32 | XMS_ITS | Clinical Summary ---
Author Organization [facility] Address [facility] [place] [address] Care Team Providers Care Rx Specialist Name Role Phone Tamra Moran NP Primary Care Provider [phone] Allergies Active Allergy Reactions Criticality Noted Date [...] 2 Active VRAYLAR 3 MG CapIndications:Mood disorder TAKE 1 CAPSULE BY MOUTH DAILY 30 capsule 1 2 Active levothyroxine (SYNTHROID) 200 MCG tabletIndications:P ostablative hypothyroidism TAKE 1 TABLET(200 MCG) BY MOUTH DAILY 30 tablet 3 Active Active Problems Problem Noted Date Diagnosed Date Papillary thyroid carcinoma (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 Legal Sex Female 6:24 PM CDT Gender Identity Female 02/16/2021 2:40 PM TIME SIGNAL WIRER Sexual Orientation Straight 02/16/2021 2: 40 PM TIME SIGNAL WIRER Last Filed Vital Signs Vital Sign Reading Time Taken Comments Blood Pressure 146/83 04/11/2021 1:09 PM TIME SIGNAL WIRER Pulse 87 04/11/2021 1:09 PM TIME SIGNAL WIRER Temperature 36.2 C (97.1 F) 04/11/2021 1:09 PM TIME SIGNAL WIRER Respiratory Rate 18 04/11/2021 1:09 PM TIME SIGNAL WIRER Oxygen Saturation 98% 04/11/2021 1:09 PM TIME SIGNAL WIRER Inhaled Oxygen Concentration - - Weight 108.9 kg (240 lb) 04/11/2021 1:09 PM TIME SIGNAL WIRER Height 175.3 cm (5' 9 ) 04/11/2021 1:09 PM TIME SIGNAL WIRER Body Mass Index 35.44 04/11/2021 1:09 PM TIME SIGNAL WIRER Plan of Treatment Health Maintenance Due Date [...] 2 - Standard) 2016 COVID-19 Vaccine ( season) 2023 PHQ-2 (Physician [place]) 04/02/2024 DTaP, Tdap and Td Vaccines (8 [...] VE NON-REACTI VE 01/21/2021 5:16 PM CDT [facility] 01/21/2021 3:03 PM CDT us Tamra Moran CANCER REGISTRY MANAGER LABORATORY Final Result [facility] [address] [place] [address], [place] [phone] from Last 3 Months or Most Recently Relevant to Health Maintenance Insurance [place] Care Teams Rx Specialist Relationship Specialty Start Date End Date Tamra Moran NP [address] [place] [address] PCP - General Nurse Practitioner Family 01/14/21
--- OUTSIDE RECORDS SUMMARY | 2024-07-07 22:32 | XMS_ITS | Data Portability ---
Author Organization [facility] Address [address] [place] [address] Assessment Encounter Date Assessment Date Assessment LastModified [...] recorded. Lab hsv-2 igg Ab, serum 2023 [facility] (Lab), [address] [place], [address], 4 02:06:20 hbcab (hepatitis B core Ab) igm, serum 2023 [facility] (Lab), [address] [place], [address], 4 02:06:20 HBsAg (hepatitis B surface Ag), serum 2023 [facility] (Lab), [address] [place], [address], 4 02:06:17 hepatitis C virus Ab, serum 2023 024 [facility] (Lab), [address], [place], [address], 4 02:06:18 HIV 1+2 AB + HIV 1 p24 Ag, qualitative immunoassay , serum 2023 024 [facility] (Lab), [address], [place], [address], 4 02:06:17 RPR (rapid plasma reagin), serum 2023 024 [facility] (Lab), [address], [place], [address], 4 02:06:20 CBC w/ auto diff 2023 024 [facility] (Lab), [address], [place], [address], 4 02:06:16 dhea-sulfat e, serum 2023 024 [facility] (Lab), [address] [facility], [place], [address], 4 02:06:17 hormone panel, serum or plasma 2023 024 [facility] (Lab), [address], [place], [address], 4 02:06:19 progesteron e, serum 2023 024 [facility] (Lab), [address], [place], [address], 4 02:06:18 prolactin, serum 2023 024 [facility] (Lab), [address], [place], [address], 4 02:06:18 shbg (sex hormone-bin ding globulin), serum 2023 024 [facility] (Lab), [address] [facility], [place], [address], 4 02:06:18 TSH, serum or plasma 2023 024 [facility] (Lab), [address], [place], [address], 4 02:06:19 testosteron e free/testos terone total, ratio, serum 2023 024 [facility] (Lab), [address] [facility], [place], [address], 4 02:06:20 urinalysis, dipstick 2022 023 [facility], [address], [address], [place], [address], 3 11:45:12 Referral None recorded. Procedures None recorded. Surgeries laparoscopy , diagnostic (SURG) 2024 025 [facility], [address] [facility] [address], [place], [address], 5 14:34:35 Imaging US, pelvis [address], [address], [address], [place], [address], 4 20:23:49 US, transvagina l [address]23 [address], [address], [place], [address], 4 20:23:49 Medication Orders Macrobid 100 mg capsule 2022 023 [id number], [address], [place], [id number], 4 16:18:20 Patient TargetsNo targets recorded. Patient [...] donaldson , Rose Haro cted: 10/11 1338 [employer] Order ing Locat ion: [place] Patho logy [...] appli cable ): Signi fican t Clini lakisha Findi ngs: Other Histo ry: Hormo sary [...] as clini karli warra nted. Not Available [facility] (Lab) [address] [facility], [place], [address], 10/13/2022 19:56:22 10/12/19 23 10/11/2022 TRICH OMONA S VAGIN CUCA (RRNA ) trichomonas vaginalis ribosomal RNA (rrna) Negati ve negati ve Not Available [facility] (Lab) [address] [facility], [place], [address], 10/13/2022 19:56:23 10/12/19 23 10/11/2022 CT/GC (STEFANY) , THINP REP VIAL chlamydia trachomatis, PCR Negati ve negati ve Not Available [facility] (Lab) [address] [place], [address], 10/13/2022 19:56:24 10/12/19 23 10/11/2022 CT/GC (STEFANY) , THINP REP VIAL neisseria gonorrhoeae, PCR Negati ve negati ve Not Available [facility] (Lab) [address], [place], [address], 10/13/2022 19:56:24 10/12/19 23 10/11/2022 urina lysis , dipst ick Protein trace Not Available [facility] [address], [place], [address], 10/11/2022 11:34:25 10/12/19 23 10/11/2022 urina lysis , dipst ick pH 5 Not Available [facility] [address], [place], [address], 10/11/2022 11:34:25 10/12/19 23 10/11/2022 urina lysis , dipst ick Specific [place] 1.015 Not Available [facility] [address], [place], [address], 10/11/2022 11:34:25 03/12/20 24 03/12/2024 CT/GC AND TRICH OMONA S VAGIN CUCA (RRNA ), URINE chlamydia trachomatis, PCR Negati ve negati ve Not Available [facility] (Lab) [address], [place], [address], 03/13/2024 13:33:23 03/12/20 24 03/12/2024 CT/GC AND TRICH OMONA S VAGIN CUCA (RRNA ), URINE neisseria gonorrhoeae, PCR Negati ve negati ve Not Available [facility] (Lab) [address], [place], [address], 03/13/2024 13:33:23 03/12/20 24 03/12/2024 CT/GC AND TRICH OMONA S VAGIN CUCA (RRNA ), URINE trichomonas vaginalis ribosomal RNA (rrna) Negati ve negati ve Not Available [facility] (Lab) [address], [place], [address], 03/13/2024 13:33:23 03/12/20 24 03/12/2024 CBC W/DIF F WBC 10.2 10'3/ uL 3.5-10 .5 Not Available [facility] (Lab) [address], [place], [address], 03/18/2024 02:06:16 03/12/20 24 03/12/2024 CBC W/DIF F RBC 4.76 10'6/ uL (based on docume nted legal sex) 3.80-5 .20 Not Available [facility] (Lab) [address], [place], [address], 03/18/2024 02:06:16 03/12/20 24 03/12/2024 CBC W/DIF F HGB 15.1 g/dL (based on docume nted legal sex) 11.6-1 5.4 Not Available [facility] (Lab) [address], [place], [address], 03/18/2024 02:06:16 03/12/20 24 03/12/2024 CBC W/DIF F HCT 46.6 % (based on docume nted legal sex) 34.0-4 5.0 high Not Available [facility] (Lab) [address], [place], [address], 03/18/2024 02:06:16 03/12/20 24 03/12/2024 CBC W/DIF F MCV 97.9 fL 80.0-9 9.0 Not Available [facility] (Lab) [address], [place], [address], 03/18/2024 02:06:16 03/12/20 24 03/12/2024 CBC W/DIF F MCH 31.7 pg 27.0-3 4.0 Not Available [facility] (Lab) [address], [place], [address], 03/18/2024 02:06:16 03/12/20 24 03/12/2024 CBC W/DIF F MCHC 32.4 g/dL 32.0-3 5.5 Not Available [facility] (Lab) [address], [place], [address], 03/18/2024 02:06:16 03/12/20 24 03/12/2024 CBC W/DIF F RDW 12.9 % 11.0-1 5.0 Not Available [facility] (Lab) [address], [place], [address], 03/18/2024 02:06:16 03/12/20 24 03/12/2024 CBC W/DIF F plt 419 10'3/ uL 150-40 0 high Not Available [facility] (Lab) [address], [place], [address], 03/18/2024 02:06:16 03/12/20 24 03/12/2024 CBC W/DIF F MPV 10.5 fL 8.8-12 .1 Not Available [facility] (Lab) [address], [place], [address], 03/18/2024 02:06:16 03/12/20 24 03/12/2024 CBC W/DIF F NRBC's 0.0 % 0.0 Not Available [facility] (Lab) [address], [place], [address], 03/18/2024 02:06:16 03/12/20 24 03/12/2024 CBC W/DIF F absolute NRBCs 0.0 10'3/ uL no refere nce range establ ished Not Available [facility] (Lab) [address], [place], [address], 03/18/2024 02:06:16 03/12/20 24 03/12/2024 CBC W/DIF F neutrophils 62.8 % 34.0-7 3.0 Not Available [facility] (Lab) [address], [place], [address], 03/18/2024 02:06:16 03/12/20 24 03/12/2024 CBC W/DIF F lymphocytes 24.6 % 15.0-5 0.0 Not Available [facility] (Lab) [address], [place], [address], 03/18/2024 02:06:16 03/12/20 24 03/12/2024 CBC W/DIF F monocytes 9.7 % 1.0-15 .0 Not Available [facility] (Lab) [address], [place], [address], 03/18/2024 02:06:16 03/12/20 24 03/12/2024 CBC W/DIF F eosinophils 1.4 % 0.0-8. 0 Not Available [facility] (Lab) [address], [place], [address], 03/18/2024 02:06:16 03/12/20 24 03/12/2024 CBC W/DIF F basophils 1.0 % 0.0-2. 0 Not Available [facility] (Lab) [address] [facility], [place], [address], 03/18/2024 02:06:16 03/12/20 24 03/12/2024 CBC W/DIF F immature granulocytes 0.5 % no define d refere nce range Not Available [facility] (Lab) [address] [place], [address], 03/18/2024 02:06:16 03/12/20 24 03/12/2024 CBC W/DIF F absolute neutrophils 6.4 10'3/ uL 1.5-8. 0 Not Available [facility] (Lab) [address] [place], [address], 03/18/2024 02:06:16 03/12/20 24 03/12/2024 CBC W/DIF F absolute lymphocytes 2.5 10'3/ uL 1.0-4. 0 Not Available [facility] (Lab) [address], [place], [address], 03/18/2024 02:06:16 03/12/20 24 03/12/2024 CBC W/DIF F absolute monocytes 1.0 10'3/ uL 0.2-1. 0 Not Available [facility] (Lab) [address] [facility], [place], [address], 03/18/2024 02:06:16 03/12/20 24 03/12/2024 CBC W/DIF F absolute eosinophils 0.1 10'3/ uL 0.0-0. 6 Not Available [facility] (Lab) [address] [facility], [place], [address], 03/18/2024 02:06:16 03/12/20 24 03/12/2024 CBC W/DIF F absolute basophils 0.1 10'3/ uL 0.0-0. 3 Not Available [facility] (Lab) [address] [facility], [place], [address], 03/18/2024 02:06:16 03/12/20 24 03/12/2024 CBC W/DIF [...] resul ts are expec carol. Not Available [facility] (Lab) [address] [facility], [place], [address], 03/18/2024 02:06:16 03/12/20 24 03/12/2024 HEPAT ITIS B SURFA CE ANTIG EN hepatitis B surface antigen Non-re active non-re active This assay was perfo rmed using [employer] ratio n reage nts and test kits. Value s obtai cora with other assay metho ds or kits canno t be used inter daily eagayley . Not Available [facility] (Lab) [address], [place], [address], 03/18/2024 02:06:17 03/12/20 24 03/12/2024 HIV 1/2 ANTIG EN/AN TIBOD Y, REFLE X CONFI RMATI ON HIV antigen/anti body Nonrea ctive nonrea ctive HIV-1 antig en and HIV-1 /HIV- 2 antib odies were not detec carol. No labor atory evide nce of HIV infec tion. Not Available [facility] (Lab) [address], [place], [address], 03/18/2024 02:06:17 03/12/20 24 03/12/2024 DHEA SULFA TE DHEA-sulfate 144 ug/dL Femal e Range s Age(y ) Range (ug/d L) 10-15 34-28 0 15-20 65-36 8 20-25 148-4 07 25-35 99-34 0 35-45 61-33 7 45-55 35-25 6 55-65 19-20 5 65-75 9-246 > 75 12-15 4 Not Available [facility] (Lab) [address] [facility], [place], [address], 03/18/2024 02:06:17 03/12/20 24 03/12/2024 HEPAT ITIS C ANTIB ANIKET SCREE N, REFLE X TO CONFI RMATI ON hepatitis C antibody Non-re active non-re active Antib odies to HCV Not Detec carol, does not exclu de the possi bilit y of expos ure to HCV. Not Available [facility] (Lab) [address], [place], [address], 03/18/2024 02:06:18 03/12/20 24 03/12/2024 HUMAN SEX HORMO NE HANNAH NG GLOBU [place] sex hormone binding globulin 16.8 nmole s/L 18.2-1 35.5 low Not Available [facility] (Lab) [address], [place], [address], 03/18/2024 02:06:18 03/12/20 24 03/12/2024 PROLA CTIN prolactin, total 25.70 NG/mL 4.79-2 3.30 high This assay was perfo rmed using [employer] ratio n reage nts and test kits. Value s obtai cora with other assay metho ds or kits canno t be used inter [facility] . Not Available [facility] (Lab) [address] [place], [address], 03/18/2024 02:06:18 03/12/20 24 03/12/2024 PROGE STERO NE progesterone 6.69 NG/mL This assay was perfo rmed using [employer] ratio n reage nts and test kits. Value s obtai cora with other assay metho ds or kits canno t be used inter [facility] . Femal e Proge stero ne Range s: Folli cular phase 0.06- 0.89 ng/mL Ovula tion phase 0.12- 12.00 ng/mL Lutea l phase 1.83- 23.90 ng/mL Postm enopa usal <0.05 -0.13 ng/mL Healt hy Pregn ant Women 1st Trime ster 11.0- 44.30 2nd Trime ster 25.40 -83.3 0 3rd Trime ster 58.70 -214. 00 Not Available [facility] (Lab) [address] [place], [address], 03/18/2024 02:06:18 03/12/20 24 03/12/2024 FSH, LH, ESTRA DIOL estradiol 95.5 pg/mL This assay was perfo rmed using [employer] ratio n reage nts and test kits. Value s obtai cora with other assay metho ds or kits canno t be used inter [facility] . Femal e Estra diol Range s: Folli cular phase 12.4- 233 pg/mL Ovula tion phase 41.0- 398 pg/mL Lutea l phase 22.3- 341 pg/mL Postm enopa usal <5-13 8 pg/mL Healt hy Pregn ant Women 1st Trime ster 154-3 243 pg/mL 2nd Trime ster 1561- 84669 pg/mL 3rd Trime ster 8525- >3000 0 pg/mL Not Available [facility] (Lab) [address] [place], [address], 03/18/2024 02:06:19 03/12/20 24 03/12/2024 FSH, LH, [...] use: 25.8- 134.8 mIU/m L Not Available [facility] (Lab) [address] [facility], [place], [address], 03/18/2024 02:06:19 03/12/20 24 03/12/2024 FSH, LH, [...] use: 7.7-5 8.5 mIU/m L Not Available [facility] (Lab) [address] [place], [address], 03/18/2024 02:06:19 03/12/20 24 03/12/2024 T4 FREE T4, free 0.77 NG/dL 0.60-1 .40 This assay is susce ptibl e to inter feren ce from high level s of bioti n which may false ly eleva te resul ts. Gifty carreno late with clini lakisha findi ngs. Not Available [facility] (Lab) [address] [facility], [place], [address], 03/18/2024 02:06:19 03/12/20 24 03/12/2024 TSH, REFLE X FREE T4 TSH 101.21 uIU/m L 0.30-5 .33 high Not Available [facility] (Lab) [address] [facility], [place], [address], 03/18/2024 02:06:19 03/12/20 24 03/12/2024 HERPE S SIMPL EX VIRUS TYPE 2 SPECI FIC AB, IGG herpes simplex virus 2 IgG Negati ve negati ve Not Available [facility] (Lab) [address] [facility], [place], [address], 03/18/2024 02:06:20 03/12/20 24 03/12/2024 HERPE S SIMPL EX VIRUS TYPE 2 SPECI FIC AB, IGG herpes simples virus 2 IgG, quant <0.2 ai 0.0-0. 8 Not Available [facility] (Lab) [address] [facility], [place], [address], 03/18/2024 02:06:20 03/12/20 24 03/12/2024 HEPAT ITIS B CORE, IGM hepatitis B core IgM antibody Non-re active non-re active IgM anti- HBc not detec carol. Does not exclu de the possi bilit y of expos ure to or infec tion with HBV. Not Available [facility] (Lab) [address] [facility], [place], [address], 03/18/2024 02:06:20 03/12/20 24 03/12/2024 RPR SCREE N, REFLE X TITER /CONF IRMAT ION RPR screen Nonrea ctive nonrea ctive Not Available [facility] (Lab) [address] [place], [address], 03/18/2024 02:06:20 03/12/20 24 03/12/2024 TESTO STERO NE, FREE( DIALY SIS) AND TOTAL (LC/M S/MS) testosterone , total 26 NG/dL 2-45 For addit ional infor gifty oliva e refer to http: //[facility].que stdia gnost ics.c om/fa q/ Total Testo stero neLCM SMSFA Q165 (This link is being provi ded for infor matio nal/ educa diana l purpo ses only. ) This test was devel oped and its genia tical perfo rmanc e nasra cteri stics have been deter mined by [employer] [place], [place]. It has not been clear ed or appro thu by the U.S. Food and Drug Admin istra tion. This assay has been valid ated pursu ant to the CLIA regul ation s and is used for clini lakisha purpo ses. Not Available [facility] (Lab) [address] [facility], [place], [address], 03/18/2024 02:06:20 03/12/20 24 03/12/2024 TESTO STERO NE, FREE( DIALY SIS) AND TOTAL (LC/M S/MS) testosterone , free 5.1 pg/mL 0.1-6. 4 This test was devel oped and its genia tical perfo rmanc e nasra cteri stics have been deter mined by [employer] [place]. It has not been clear ed or appro thu by the U.S. Food and Drug Admin istra tion. This assay has been valid ated pursu ant to the CLIA regul ation s and is used for clini lakisha purpo ses. Perfo rming Organ izati on [facility] demial[facility] n: Site ID: [id number] Name: [employer] [facility] [employer] annika Addre ss: [id number] [place], [place] Direc tor: Allegra Archibald MD PhD Not Available [facility] (Lab) [address] [facility], [place], [address], 03/18/2024 02:06:20 03/27/20 24 03/27/2024 PLATE LET COUNT plt 416 10'3/ uL 150-40 0 high Not Available [facility] (Lab) [address] [facility], [place], [address], 03/28/2024 05:46:43 03/27/20 24 03/27/2024 TSH TSH 81.15 uIU/m L 0.30-5 .33 high Not Available [facility] (Lab) [address] [facility], [place], [address], 03/28/2024 05:46:44 02/14/20 24 02/14/2024 US, pelvi s No observ ation record ed. [email or web address], [place], [address], 02/14/2024 18:05:32 02/14/20 24 02/14/2024 US, trans vagin al No observ ation record ed. [email or web address], [place], [address], 02/14/2024 18:05:41 02/14/20 24 02/14/2024 US, pelvi s No observ ation record ed. [email or web address] [address], [place], [address], 02/14/2024 20:20:04 Result Notes None recorded. Problems Name Problem SNOMED Code Status Onset Date Resolution Date Notes Provider Name and Address Organization Details Recorded Time Syphilis test finding 490956262 Completed 201809/22/2021 Encounter for STD screening ;Recorded Elsewhere : No Locati on: [facility] So urce: EHR Chron ic: N Practic e ID: [id number] Bill able Time: 01:15:00 PM Tanika Silver [place], [place] - [facility] 2 15:03:32 Finding of pattern of menstrua l cycle 349196670 Completed 201509/22/2021 Menometro rrhagia;R ecorded Elsewhere : No Locati on: [facility] So urce: EHR Chron ic: N Practic e ID: [id number] Bill able Time: 10:30:00 AM Tanika [facility] 2 15:03:31 Pelvic and perineal pain [id number] Completed 201709/22/2021 Pelvic and perineal pain;Raghavendra rded Elsewhere : No Locati on: [facility] So urce: EHR Chron ic: N Practic e ID: [id number] Bill able Time: 11:00:00 AM Tanika [facility] 2 15:03:31 Insertio n of intraute rine contrace ptive device Completed 201709/22/2021 Encounter for insertion of intrauter ine contracep tive device;Re corded Elsewhere : No Locati on: [facility] So urce: EHR Chron ic: N Practic e ID: [id number] Bill able Time: 01:30:00 PM Tanika [facility] [address] 15:03:[address] Concept Completed 201709/22/2021 Encntr for routine child health exam w/o abnormal findings; Recorded Elsewhere : No Locati on: [facility] So urce: EHR Chron ic: N Practic e ID: [id number] Bill able Time: 10:30:00 AM Tanika [facility] 2 15:03:31 Localize d swelling , mass and lump, neck Completed 201709/22/2021 Localized swelling, mass and lump, neck;Raghavendra rded Elsewhere : No Locati on: [facility] So urce: EHR Chron ic: N Practic e ID: [id number] Bill able Time: 10:30:00 AM Tanika [facility] 2 15:03:[address] Concept Completed 201709/22/2021 Well woman check w/o abnormal finding;R ecorded Elsewhere : No Locati on: [facility] So urce: EHR Chron ic: N Practic e ID: [id number] Bill able Time: 10:30:00 AM Tanika Silver [facility] 2 15:03:31 Contrace ptive sheath status [id number] Completed 201809/22/2021 Encounter for routine checking of intrauter ine contracep tive device;Re corded Elsewhere : No Locati on: [facility] So urce: EHR Chron ic: N Practic e ID: [id number] Bill able Time: 09:45:00 AM Tanika Silver [facility] 2 15:03:31 Problem Notes None recorded. Procedures Surgical History Date Name Laterality Status Provider Name and Address Organization Details Recorded Time 3 Date of Last Pap Smear completed Kerri Delaney [facility] 03/12/2024 16:19:24 9 Thyroid Surgery completed Purnima Wallace [facility] 03/14/2022 17:28:33 Imaging Results Imaging Date Name Status LastModified by Organization Details LastModified Time 02/14/2024 US, pelvis completed [email or web address] [facility] [address], [place], [address], 02/14/2024 18:05:32 02/14/2024 [email or web address] [address], [place], [address], 02/14/2024 18:05:41 02/14/2024 US, pelvis completed [email or web address], [place], [address], 02/14/2024 20:20:04 Procedure Notes None recorded. Medical [...] ed Elsewher e: Yes Loca tion: [facility] odify By: marcelina hernadez DateTime : [...] Available Ortho Tri-Cycle n (28) 0.18 mg(7)/0.2 15mg(7)/0 .25 mg(7)-0.0 35 mg tablet take 1 tablet by oral route every day 02/27 completed Prescrib ed Juan C e: No Locat ion: [facility] odify By: janelle weir DateTime : 10/25/19 17 09:00:00 AM Not [...] Prescrib ed Elsewher e: No Locat ion: [facility] odify By: [email or web address] Samayoa ncounter DateTime : 11/17/19 16 04:30:01 PM Not Available Not Available Not Available Lomedia 24 Fe 1 mg-20 mcg (24)/75 mg (4) tablet TAKE 1 TABLET BY ORAL ROUTE EVERY DAY 02/27 completed Prescrib ed Elsewher e: No Locat ion: [facility] odify By: janelle Samayoa ncounter DateTime : [...] Updated DateTime 10/11/2022 175.26 cm 46.1 kg/m2 502369.8 2 g 115 mm[Hg] 75 mm[Hg] Kerri Delaney [facility] 3 11:30:12 Date Recorded Body height Body mass index (BMI) Body weight Systolic blood pressure Diastolic blood pressure Provider Name and Address Organization Details Last Updated DateTime 03/12/2024 175.26 cm 40.3 kg/m2 694911.7 2 g 132 mm[Hg] 86 mm[Hg] Kerri Rhett [facility] 4 16:17:16 Date Recorded Body height Body mass index (BMI) Body weight Systolic blood pressure Diastolic blood pressure Provider Name and Address Organization Details Last Updated DateTime 04/09/2024 175.26 cm 41.6 kg/m2 851494.0 5 g 136 mm[Hg] 86 mm[Hg] Tami Dubose [facility] 5 16:37:02 Social History Question Answer Notes LastModified by Organizat ion Details LastModified Time Tobacco Smoking Status Never Smoker Purnima boyce, [facility] 03/14/2022 17:28:01 What Is Your Level Of Alcohol Consumption? Occasional [email or web address] Information not available 03/14/2022 Are You Blind Or Do You Have Difficulty Seeing? No [email or web address] Information n ot available 03/14/2022 What Is Your Level Of Caffeine Consumption? Occasional [email or web address] Information not available 03/14/2022 In The 14 Days Before Symptom Onset, Have You Had Close Contact With A Laboratory-confirm ed COVID-19 While That Case Was Ill? No [email or web address] Information n ot available 03/14/2022 In The 14 Days Before Symptom Onset, Have You Had Close Contact With A Person Who Is Under Investigation For COVID-19 While That Person Was Ill? No [email or web address] Information not available 03/14/2022 Have You Been To An Area Known To Be High Risk For COVID-19? No [email or web address] Information not available 03/14/2022 Are You Deaf Or Do You Have Serious Difficulty Hearing? No Information not available 03/14/2022 What Type Of Diet Are You Following? REGULAR [email or web address] Information n ot available 03/14/2022 Have You Ever Been Counseled For Unhealthy Alcohol Use? No [email or web address] Information not available 03/14/2022 Do You Use Your Seat Belt Or Car Seat Routinely? Yes Information not available 03/14/2022 Do You Have Smoke And Carbon Monoxide Detectors In Your Home? Yes [email or web address] Information not available 03/14/2022 Do You Feel Stressed (tense, Restless, Nervous, Or Anxious, Or Unable To Sleep At Night)? [id number] [email or web address] Information not available 03/14/2022 Do You Use Any Illicit Or Recreational Drugs? No Information not available 03/14/2022 Do You Use Sunscreen Routinely? Yes [email or web address] Information not available 03/14/2022 Has Tobacco Cessation Counseling Been Provided? No [email or web address] Information not available 03/14/2022 Do You Or Have You Ever Used Any Other Forms Of Tobacco Or Nicotine? No Information not available 03/14/2022 Sex: Unknown Functional Status Question Answer Note LastModified by Organizat ion Details LastModified Time Do you have difficulty walking or climbing stairs? No [email or web address] Information not available 03/14/2022 Are you able to walk? YESWOREST [email or web address] Information not available 03/14/2022 Are you able to care for yourself? Yes [email or web address] Information not available 03/14/2022 Do you have difficulty dressing or bathing? No [email or web address] Information not available 03/14/2022 What is your exercise level? Occasional Information not available 03/14/2022 Mental Status None recorded. Family History Relationship Description Onset Age of this Age Resolved Age Notes LastModified by Organization Details LastModified Time Mother Asthma [email or web address] Not available 11/26/2019 16:58:51 Paternal Grandfather Diabetes mellitus [email or web address] Not available 11/25 16:59:00 Paternal Grandfather Hypertensive disorder Not available 11/25 16:59:09 Paternal Grandfather Heart disease [email or web address] Not available 11/25 16:59:22 Paternal Grandfather Malignant tumor of colon [email or web address] Not available 11/25 16:59:34 Maternal Grandmother Heart disease [email or web address] Not available 11/25 16:59:55 Maternal Grandmother Hypertensive disorder [email or web address] Not available 11/25 17:00:08 Maternal Grandfather Heart disease [email or web address] Not available 11/25 17:00:21 Father Asthma [email or web address] Not available 11/26/2019 17:00:34 Paternal Grandmother Malignant tumor of breast Not available 2024 16:37:55 Medical History Condition [...] SNOMED-CT Code Diagnosis ICD10 Code Diagnosis [facility] [id number] [facility] [address] [address] 03/23/2023 13:50:24 03/27/2023 09:10:53 [id number] BRENDAN BarnardBC [facility] [address] [address] 09/22/2021 15:31:57 09/23/2021 15:52:47 Gynecologic examination [id number] Z01.419 Take Calcium with Vitamin D 1200mg [...] Screen naRoutine Labs na Pain in pelvis 99353905 R10.2 Today we agreed to update vaginal [...] All questions answered to patient satisfacti on. [id number] Celena Jett [facility] [address] [address] 09/27/2021 16:41:33 09/27/2021 17:24:05 Pain in pelvis [id number] R10.2 [id number] Magali Gleason [facility] [address] [address] 10/06/2021 15:30:10 10/06/2021 16:12:13 Pain in pelvis [id number] R10.2 Reviewed US which was wnl.Her pelvic pain sx's have resolvedPo ssible cyst had ruptured prior to USMonitor for now Malaise and fatigue 2710 86557 R23.2 Voices that she is generally not [...] taken today.Offe red to drive her to [facility].S he declined.V oices that she feels she [...] counseling and review of plan of care. [id number] Magali Gleason [facility] [address] [address] 11/23/2021 16:35:11 11/23/2021 17:11:18 Vaginitis [id number] N76.0 Suspect BV & yeastWill treat for BV & yeastCall if sx's worsenIf swab was sent will be notified via portal unless otherwise indicated. Time spent in visit is a total of 15 mins with at least 50% of visit consisting of counseling and review of plan of care. [id number] Magali Gleason , [facility] [address],[place] [address] 03/14/2022 17:01:44 03/15/2022 15:51:39 Urinary symptoms [id number] R39.9 Vaginitis 50426910 N76.0 Suspect yeastWill treat yeastCall if sx's worsenIf swab was sent will be notified via portal unless otherwise indicated. Counseling /Therapist resources given including psychology Coin Time spent in visit is a total of 15 mins with at least 50% of visit consisting of counseling and review of plan of care. [id number] Maagli Gleason , [facility] [address],[place] [address] 10/11/2022 11:18:54 10/11/2022 11:49:53 Dysuria 13700221 R30.0 Suspect UTISent cultureTre atedCounse led on medication R/B's, Most common side effects, & use. All questions were answered to patient satisfacti on. Gynecologi c examination [id number] Z01.419 Take Calcium with Vitamin D 1200mg [...] c Screen discussedC olon Screen naDexa Screen [facility] na [id number] Kate Silver [facility] [address] [address] 02/14/2024 16:57:53 02/14/2024 17:33:10 Pain in pelvis 97079344 R10.2 [id number] Cristian Ruelas MD [facility] [address] [address] 03/12/2024 15:30:34 03/13/2024 09:49:23 Pain in pelvis 70950562 R10.2 23-year-ol d female with multiple concerns. [...] hemorrhage and infection. Abnormal u terine bleeding [id number] 9100 N93.9 Sexually t ransmitted infectious disease [id number] A64 [id number] Cristian Ruelas MD [facility] [address] [address] 04/09/2024 16:07:43 04/11/2024 14:25:38 Pain in pelvis 92443501 R10.2 this patient is a 23-year-ol d [...] Kelsey Member ID Guarantor Name 10/11/2022 1 [facility] ON OR AFTER 09/30/20 (MEDICAID REPLACEMENT - HMO) Mervat Werner [id number] Mervat E Werner 03/23/2023 1 [facility] ON OR AFTER 09/30/20 (MEDICAID REPLACEMENT - HMO) Mervat Werner [id number] Mervat E Werner 02/14/2024 1 [facility] ON OR AFTER 09/30/20 (MEDICAID REPLACEMENT - HMO) Mervat Werner [id number] Mervat E Werner 03/12/2024 1 [facility] ON OR AFTER 09/30/20 (MEDICAID REPLACEMENT - HMO) Mervat Werner [id number] Mervat E Werner 04/09/2024 1 *SELF PAY* [...] Followed with yearly pap smears Magali Gleason, [facility]- [address], [place], [address], [facility] 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 Her main concern is [...] infection. Cristian Ruelas MD [address], [place], [address], [facility] 03/12/2024 19:07:15 04/09/2024 text/html 23-year-old fema [...] infection. Cristian Ruelas MD [address], [place], [address], [facility] 04/10/2024 22:44:59 OBGyn Episode No OBEpisode recorded.
[2024-07-07 22:34] VITALS: BP 143/90; PULSE 128; RESP 16; TEMP 36.8; O2SAT 97
--- NOTE | 2024-07-07 22:37 | ECG_ITS ---
Test Date: 2024-07-07 22:40:50 Measurements Intervals [place] Rate: 112 P: 39 MA: 152 QRS: 16 QRSD: 89 T: -6 QT: 322 QTc: 441 Interpretive Statements SINUS TACHYCARDIA POSSIBLE LEFT ATRIAL ENLARGEMENT BORDERLINE ST-T WAVE ABNORMALITY- INFERIOR LEADS ABNORMAL ECG Compared to ECG 05/29/2024 13:30:02 HEART RATE HAS INCREASED Electronically Signed On 07-08-2024 06:24:29 CDT by Andrew Zhang D.O.
[2024-07-08] VITALS (7 sets, daily range): BP systolic 118–134; BP diastolic 74–85; PULSE 83–111; RESP 15–18; O2SAT 98–99
[2024-07-08 01:15] LABS: Basophils Percent Auto 0.4 % (0.2-1.2); Eosinophils Absolute Auto 0.1 K/mm3 (0-0.3); Eosinophils Percent Auto 0.8 % (0-4.4); Hematocrit 38.6 % (37.0-47.0); Hemoglobin 13.1 g/dL (12.0-15.0); Immature Granulocyte Absolute 0.04 K/mm3 (0.00-0.031); Immature Granulocyte Percent A 0.4 % (0-0.5); Lymphocytes Absolute Auto 1.31 K/mm3 (0.9-3.2); Lymphocytes Percent Auto 12.6 % (18.3-44.2); Mean Corpuscular HGB Conc 33.9 g/dl (32-36); Mean Corpuscular Hemoglobin 32.6 pg (26-34); Mean Platelet Volume 9.2 fl (7.4-10.4); Monocytes Absolute Auto 1.2 K/mm3 (0.1-0.6); Monocytes Percent Auto 11.1 % (2.6-8.5); Neutrophils Absolute Auto 7.8 K/mm3 (1.3-6.7); Neutrophils Percent Auto 74.7 % (45.5-73.1); Platelet Count Result 395 k/mm3 (150-375); Red Blood Count 4.02 M/mm3 (4.2-5.4); Red Cell Distribution Width 12.6 % (11.5-14.5); White Blood Count 10.4 K/mm3 (4.5-10.0)
[2024-07-08 01:20] LABS: BEDSIDEPREGUCG Negative (Negative)
[2024-07-08 01:22] LABS: Add Urine Microscopic? NO; Appearance Urine Clear (Clear); Bilirubin Urine Negative (Negative); Blood Urine Negative (Negative); Color Urine Yellow (Yellow); Glucose Urine UA Negative (Negative); Ketones Urine Negative (Negative); Leukocyte Esterase Ur Negative LEU/UL (Negative); Nitrate Urine Negative (Negative); Protein Urine Negative (Negative); Specific Grav Ur 1.006 (1.001-1.035); Urobilinogen Urine 0.2 mg/dL (<2.0)
[2024-07-08 01:33] LABS: Alanine Aminotransferase 33 U/L (6-35); Albumin Level 4.2 g/dL (3.5-5.1); Alkaline Phosphatase 55 U/L (38-126); Anion Gap 9 mmol/L (4-12); Aspartate Amino Transferase 38 U/L (14-36); Bilirubin,Total 0.6 mg/dL (0.2-1.3); Blood Urea Nitrogen 7 mg/dL (7-17); Calcium 6.7 mg/dL (8.4-10.2); Carbon Dioxide 30 mmol/L (22-30); Chloride 100 mmol/L (98-107); Estimated CRCL calculation 102 ml/min; Estimated Glomerular Filt Rate > 60; Glucose 111 mg/dL (65-110); Potassium 3.9 mmol/L (3.4-5.0); Sodium 139 mmol/L (137-145)
--- OUTSIDE RECORDS SUMMARY | 2024-07-08 01:35 | XMS_ITS | Referral Summary ---
Author Organization [facility] Address [address] [place] [address] Care Team Providers Care Straightening Press Operator Helper Name Role Phone Garrett Sanders MD Primary Care Provider [phone] Encounters Date Type Department Care Team Description 06/02/2024 Results Follow-Up [facility] Family Medicine at [address] [place] [phone] Garrett Sanders MD 05/28/2024 Results Follow-Up [facility] Family Medicine at [address] [place] [phone] Garrett Sanders MD 05/28/2024 2:19 PM MULTISKILL OPERATOR - 05/28/2024 11:59 PM MULTISKILL OPERATOR Hospital Encounter [facility] Diagnostic Imaging [address] [place] [address] Chronic pain of right knee Discharge Disposition: Discharge to home or self care 05/28/2024 2:10 PM MULTISKILL OPERATOR Lab [facility] Lab [address] [place] [address] Postoperative hypothyroidism 05/23/2024 Nurse Triage [facility] Family Medicine at [address] [place] [phone] Garrett Sanders MD 05/23/2024 Nurse Triage [facility] Family Medicine at [address] [place] [phone] Chata Sommer RN 05/22/2024 Telephone [facility] [place] [address] [facility] [facility] [address] [place] [phone] Derrek Dangelo MD 05/12/2024 5:53 PM MULTISKILL OPERATOR - 05/12/2024 6:26 PM [facility] Emergency Department [address] [place] [address] Colitis (Primary Dx) Discharge Disposition: Discharge to home or self care 05/12/2024 Nurse Triage [facility] Family Medicine at [place] [address] [facility] [facility] [address] [place] [phone] Garrett Sanders MD 04/15/2024 10:25 AM MULTISKILL OPERATOR - 04/15/2024 12:56 PM [facility] Emergency Department [address] [place] [address] Discharge Disposition: Left without being seen from [...] 02/14/2023 Assessment & Plan (02/14/2023 2:58 PM MULTISKILL OPERATOR): Warm compresses every 4-6 hours for 5-10 minutes Frequent handwashing, lid massage Doxycycline po 100 mg BID x 7 days. Sunscreen use advised. Topical erythromycin ER for worsening, pain, streaking redness, worsening swelling, vision impairment Upper respiratory tract infection 02/14/2023 Assessment & Plan (02/14/2023 2:59 PM MULTISKILL OPERATOR): Rapid strep negative Rapid covid, flu negative [...] 5pm. Assessment & Plan (04/19/2023 12:26 PM MULTISKILL OPERATOR): Recommended aggressive Lifestyle modification and weight loss [...] 08/30/2021 Assessment & Plan (03/12/2023 3:27 PM MULTISKILL OPERATOR): Continue current levothyroxine dose. Will check thyroid function test and adjust levothyroxine dose accordingly. TSH goal lower normal Assessment & Plan (02/13/2022 2:37 PM MULTISKILL OPERATOR): Continue current levothyroxine dose. Will check thyroid function test and adjust levothyroxine dose accordingly. 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 Biochemical evaluation with thyroid tumor markers. We will also obtain neck ultrasound for evaluation of the neck. If above are in acceptable range, will plan follow-up on yearly basis Assessment & Plan (02/13/2022 2:38 PM MULTISKILL OPERATOR): No evidence of tumor recurrence on biochemical [...] Encounter for STD screening;Recorded Elsewhere: No Location: [facility] Source: EHR Chronic: N Practice ID: [id number] Billable Time: 01:15:00 PM Contraceptive management 04/23/2018 Overview (04/19/2023): Encounter for routine checking of intrauterine contraceptive device;Recorded Elsewhere: No Location: [facility] Source: EHR Chronic: N Practice ID: [id number] Billable Time: 09:45:00 AM Pelvic and perineal pain 02/27/2018 Overview (04/19/2023): Pelvic and perineal pain;Recorded Elsewhere: No Location: [facility] Source: EHR Chronic: N Practice ID: [id number] Billable Time: 11:00:00 AM Menstrual cycle disorder 05/19/2015 Overview (04/19/2023): Menometrorrhagia;Recorded Elsewhere: No Location: [facility] Source: EHR Chronic: N Practice ID: [id number] Billable Time: 10:30:00 AM Irregular menses 01/09/2015 Resolved Problems Problem Noted Date Diagnosed Date Resolved Date Abscess of left thigh 06/14/20222022 Hypoglycemia 02/13/2022 01/29/2023 Assessment & Plan (02/13/2022 2:39 PM MULTISKILL OPERATOR): No documented low blood sugar Advised BG [...] on file Legal Sex Female 5:33 AM MULTISKILL OPERATOR Gender Identity Not on file Sexual Orientation Not on file Last Filed Vital Signs Vital Sign Reading Time Taken Comments Blood Pressure 109/76 05/12/2024 6:05 PM MULTISKILL OPERATOR Pulse 55 05/12/2024 6:05 PM MULTISKILL OPERATOR Temperature 36.3 C (97.3 F) 05/12/2024 2:11 PM MULTISKILL OPERATOR Respiratory Rate 18 05/12/2024 6:05 PM MULTISKILL OPERATOR Oxygen Saturation 98% 05/12/2024 6:05 PM MULTISKILL OPERATOR Inhaled Oxygen Concentration - - Weight 118.1 kg (260 lb 5.8 oz) 05/12/2024 2:11 PM MULTISKILL OPERATOR Height 172.7 cm (5' 8 ) 05/12/2024 2:11 PM MULTISKILL OPERATOR Body Mass Index 39.59 05/12/2024 2:11 PM MULTISKILL OPERATOR Plan of Treatment Not on file Procedures Procedure Name Priority Date/Time Associated Diagnosis Comments XR KNEE RIGHT 4 OR MORE VIEWS Schedule Routine, Read Routine (OP Routine) 05/28/2024 2:35 PM MULTISKILL OPERATOR Chronic pain of right knee T4, FREE Routine 05/28/2024 2:15 PM MULTISKILL OPERATOR Postoperative hypothyroidism THYROID FUNCTION CASCADE Routine 05/28/2024 2:15 PM MULTISKILL OPERATOR Postoperative hypothyroidism CTA ABDOMEN PELVIS W WO CONTRAST ED 05/12/2024 5:29 PM MULTISKILL OPERATOR URINALYSIS AND REFLEX TO MICROSCOPIC AND CULTURE STAT 05/12/2024 5:03 PM MULTISKILL OPERATOR POCT HCG, URINE Routine 05/12/2024 4:59 PM MULTISKILL OPERATOR EGFR STAT 05/12/2024 2:20 PM MULTISKILL OPERATOR DIFFERENTIAL AUTO STAT 05/12/2024 2:2 0 PM MULTISKILL OPERATOR LIPASE STAT 05/12/2024 2:20 PM MULTISKILL OPERATOR COMPREHENSIVE METABOLIC PANEL STAT 05/12/2024 2:20 PM MULTISKILL OPERATOR CBC WITH AUTO DIFFERENTIAL STAT 05/12/2024 2:20 PM MULTISKILL OPERATOR XR ELBOW RIGHT 3 OR MORE VIEWS ED 04/15/2024 12:01 PM MULTISKILL OPERATOR XR HUMERUS RIGHT 2 OR MORE VIEWS ED 04/15/2024 11:21 AM MULTISKILL OPERATOR POCT HCG, URINE Routine 04/15/2024 11:04 AM MULTISKILL OPERATOR N. GONORRHOEAE/C. TRACHOMATIS AMPLIFICATION STAT 06/13/2022 3:09 PM CDT HEPATITIS PANEL, ACUTE STAT 02/01/2022 7:53 PM CDT from Last 3 Months or Most Recently Relevant to Health Maintenance Results * XR Knee Right 4 or More Views (05/28/2024 2:35 PM MULTISKILL OPERATOR) Anatomical Region Laterality Modality Lower Extremities, Knee Right Computed Radiography 06/01/2024 7:27 AM MULTISKILL OPERATOR Narrative 06/01/2024 7:28 AM MULTISKILL OPERATOR EXAM DESCRIPTION: XR KNEE RIGHT 4 OR [...] by Arik Camacho M.D. T: Report ID: [id number] Reading Location: [id number] Procedure Note Arik Camacho MD - 06/01/2024 [...] by Arik Camacho M.D. T: Report ID: [id number] Reading Location: [id number] Garrett Sanders MD IM XR PROCEDURES Final Result * (ABNORMAL) Thyroid Function [place] (05/28/2024 2:15 PM MULTISKILL OPERATOR) TSH 40.70(H) 0.30 - 4.20 mcIUnit/mL Blood 05/28/2024 2:15 PM MULTISKILL OPERATOR 05/28/2024 2:30 PM MULTISKILL OPERATOR Garrett Sanders MD LAB BLOOD ORDERABLES Final Resul t Performing Organization Address City/[facility] Co de Phone Number AYSE [facility] [place] [address] * T4, free (05/28/2024 2:15 PM MULTISKILL OPERATOR) Free T4 1.03 0.90 - 1.70 ng/dL Blood 05/28/2024 2:15 PM MULTISKILL OPERATOR 05/28/2024 2:30 PM MULTISKILL OPERATOR Narrative AYSE - 05/28/2024 4:15 PM MULTISKILL OPERATOR This test was reflexed from a TSH result. Garrett Sanders MD LAB BLOOD ORDERABLES Final Resul t Performing Organization Address [facility] de Phone Number AYSE [address] [address] * CTA Abdomen Pelvis (05/12/2024 5:29 PM MULTISKILL OPERATOR) Anatomical Region Laterality Modality Body N/A Computed Tomogra phy 05/12/2024 5:33 PM MULTISKILL OPERATOR Narrative 05/12/2024 5:39 PM MULTISKILL OPERATOR EXAM DESCRIPTION: CTA ABDOMEN PELVIS REASON FOR [...] Zana Sanders D.O. PS: PS Report ID: [id number] Reading Location: [id number] Procedure Note Zana Sanders DO - 05/12/2024 [...] Zana Sanders D.O. PS: PS Report ID: [id number] Reading Location: [place] [address] PROCEDURES Final Result * Urinalysis reflex to microscopic and culture Urine (05/12/2024 5:03 PM MULTISKILL OPERATOR) Color, ur Yellow Yellow Comment:Testing performed by : [address] [address] Clarity, ur Clear Clear AYSE Comment:Testing performed by : [address] [address] Specific gravity, ur 1.010 1.003 - 1.030 AYES Comment:Testing performed by : [address] [address] pH, urine 7.0 AYSE Comment: Interpretive Data U rine pH is affected by diet, medications, systemic acid-base disturbances, and renal tubular function. pH may affect urinary stone formation. For example, urine pH below 6.0 may help reduce the tendency for calcium phosphate stones and pH greater than 6.0 may reduce the tendency for uric acid stone formation. Source: [facility] Tour Engine Current Interpretive Data was last revised on 2017 Testing performed by: [address] [address] Protein, ur ql Negative Negative AYSE Comment:Testing performed by : [address] [address] Glucose, ur ql Negative Negative AYSE Comment:Testing performed by : [address] [address] Ketones, ur Negative Negative AYSE Comment:Testing performed by : [address] [address] Bilirubin, ur Negative Negative AYSE Comment:Testing performed by : [address] [address] Blood, ur Negative Negative AYSE Comment:Testing performed by : [address] [address] Urobilinogen, ur <2.0 <2.0 mg/dL AYSE CORDERO Comment:Testing performed by : [facility], [address] [place] [address]., [address] Nitrite, ur Negative Negative AYSE CORDERO Comment:Testing performed by : [address] [address] Leukocyte esterase, ur Negative Negative AYSE Comment:Testing performed by : [address] [address] UA reflex comment Reflex conditions for microscopic UA and culture not met. AYSE Comment:Testing performed by : [facility], [address] [place] [address], [place]., [address] Urine 05/12/2024 5:03 PM MULTISKILL OPERATOR 05/12/2024 5:10 PM MULTISKILL OPERATOR Clifton Cain DO LAB MICROBIOLOGY - GENERAL ORDERABLES Final Result Performing Organization Address City/State/[facility] Co de Phone Number AYSE [address] Department [place] [address] * POCT hCG, urine (05/12/2024 4:59 PM MULTISKILL OPERATOR) HCG, ur, POC Negative Negative Lot Number [id number] QC Backgroud Clear Acceptable QC Control Line Acceptable Urine 05/12/2024 4:59 PM MULTISKILL OPERATOR Clifton Cain DO POINT OF CARE TEST ORDERABL ES Final Result * eGFR (05/12/2024 2:20 PM MULTISKILL OPERATOR) eGFR 77 >=60 mL/min/1. 73 m2 Comment: [...] was last reviewed 2021. Testing performed by: [address] [address] Blood 05/12/2024 2:20 PM MULTISKILL OPERATOR 05/12/2024 2:28 PM MULTISKILL OPERATOR us Clifton Cain DO LAB BLOOD ORDERABLES Final Result AYSE [address] [facility] Department [place] [address] * (ABNORMAL) Differential, auto (05/12/2024 2:20 PM MULTISKILL OPERATOR) Neutrophil abs 5.4 1.5 - 6.5 K/cumm Comment:Testing performed by : [address] [address] Imm gran abs 0.0 0.0 - 0.1 K/cumm AYSE Comment:Testing performed by : [address] [address] Lymphocyte abs 2.0 0.8 - 3.3 K/cumm AYSE Comment:Testing performed by : [address] [address] Monocyte abs 1.0(H) 0.2 - 0.8 K/cumm AYSE Comment:Testing performed by : [address] [address] Eosinophil abs 0.1 0.0 - 0.5 K/cumm AYSE Comment:Testing performed by : [address] [address] Basophil abs 0.1 0.0 - 0.1 K/cumm AYSE Comment:Testing performed by : [address] [address] Neutrophil pct 62.9 % AYSE Comment: Interpretive Data Percent cell count reference ranges are not reported, since discordance with absolute values may lead to misinterpretation of CBC data. Current Interpretive Data was last revised on 2017. Testing performed by: [address] [address] Imm gran pct 0.2 % AYSE Comment: Interpretive Data Percent cell count reference ranges are not reported, since discordance with absolute values may lead to misinterpretation of CBC data. Current Interpretive Data was last revised on 2017. Testing performed by: [address] [address] Lymphocyte pct 23.4 % [facility] Comment: Interpretive Data Percent cell count reference ranges are not reported, since discordance with absolute values may lead to misinterpretation of CBC data. Current Interpretive Data was last revised on 2017. Testing performed by: [address] [address] Monocyte pct 11.3 % [facility] Comment: Interpretive Data Percent cell count reference ranges are not reported, since discordance with absolute values may lead to misinterpretation of CBC data. Current Interpretive Data was last revised on 2017. Testing performed by: [address] [address] Eosinophil pct 1.5 % [facility] Comment: Interpretive Data Percent cell count reference ranges are not reported, since discordance with absolute values may lead to misinterpretation of CBC data. Current Interpretive Data was last revised on 2017. Testing performed by: [address] [address] Basophil pct 0.7 % [facility] Comment: Interpretive Data Percent cell count reference ranges are not reported, since discordance with absolute values may lead to misinterpretation of CBC data. Current Interpretive Data was last revised on 2017. Testing performed by: [address] [address] Blood 05/12/2024 2:20 PM MULTISKILL OPERATOR 05/12/2024 2:28 PM MULTISKILL OPERATOR Clifton Cain DO LAB BLOOD ORDERABLES Final Result AYSE [address] [facility] Department [place] [address] * (ABNORMAL) CBC with auto differential (05/12/2024 2:20 PM MULTISKILL OPERATOR) WBC 8.7 3.8 - 9.9 K/cumm Comment:Testing performed by : [address] [address] Hgb 15.5 11.9 - 15.5 g/dL AYSE Comment:Testing performed by : [address] [address] Hct 45.8(H) 35.6 - 45.5 % AYSE Comment:Testing performed by : [address] [address] Plt 416(H) 150 - 400 K/cumm AYSE Comment:Testing performed by : [address] [address] MPV 10.1 9.1 - 12.3 fL AYSE Comment:Testing performed by : [address] [address] RBC 4.82 3.90 - 5.20 M/cumm AYSE Comment:Testing performed by : [address] [address] MCV 95.0 81.3 - 96.4 fL AYSE Comment:Testing performed by : [address] [address] MCH 32.2 27.1 - 33.3 pg AYSE Comment:Testing performed by : [address] [address] MCHC 33.8 32.3 - 35.7 g/dL AYSE Comment:Testing performed by : [address] [address] RDW CV 13.4 11.1 - 14.9 % AYSE Comment:Testing performed by : [address] [address] RDW SD 47.4 35.7 - 48.1 fL AYSE CORDERO Comment:Testing performed by : [address] [address] NRBC abs 0.00 0.00 - 0.01 K/cumm AYSE CORDERO Comment:Testing performed by : [address] [address] Blood Venous blood specimen / Unknown 05/12/2024 2:20 PM MULTISKILL OPERATOR 05/12/2024 2:28 PM MULTISKILL OPERATOR Clifton Cain LAB BLOOD ORDERABLES Final Result Performing Organization Address [facility] Co de Phone Number [address] [place] [address] * Lipase (05/12/2024 2:20 PM MULTISKILL OPERATOR) Pathologist [facility] Lipase 24 10 - 99 Units/L Comment:Testing performed by : [address] [address] Blood Venous blood specimen / Unknown 05/12/2024 2:20 PM MULTISKILL OPERATOR 05/12/2024 2:28 PM MULTISKILL OPERATOR Clifton Cain LAB BLOOD ORDERABLES Final Result Performing Organization Address [facility] Co de Phone Number [address] [address] * Comprehensive metabolic panel (05/12/2024 2:20 PM MULTISKILL OPERATOR) Pathologist [facility] Sodium 137 135 - 145 mmol/L Comment:Testing performed by : [address] [address] Potassium, pl 4.0 3.3 - 4.9 mmol/L AYSE CORDERO Comment:Testing performed by : [address] [address] Chloride 101 97 - 110 mmol/L AYSE CORDERO Comment:Testing performed by : [address] [address] CO2 23 22 - 32 mmol/L AYSE CORDERO Comment:Testing performed by : [address] [address] Anion gap 13 2 - 15 mmol/L AYSE Comment:Testing performed by : [address] [address] BUN 7 6 - 25 mg/dL AYSE Comment:Testing performed by : [address], [place]., [address] Creatinine 1.05 0.60 - 1.10 mg/dL AYSE Comment:Testing performed by : [address] [address] Glucose 121 70 - 199 mg/dL AYSE [...] was last revised 2022. Testing performed by: [address] [address] Calcium 9.2 8.5 - 10.3 mg/dL AYSE Comment:Testing performed by : [address] [address] Bilirubin, total 1.0 0.1 - 1.2 mg/dL AYSE Comment:Testing performed by : [address] [address] Protein, pl 7.9 6.5 - 8.5 g/dL AYSE Comment:Testing performed by : [address] [address] Albumin 4.6 3.5 - 5.0 g/dL AYSE Comment:Testing performed by : [address] [address] Alk phos 52 40 - 130 Units/L AYSE Comment:Testing performed by : [address] [address] ALT 18 7 - 45 Units/L AYSE Comment:Testing performed by : [facility], [address] [place] [address]., [address] AST 25 10 - 45 Units/L AYSE Comment:Testing performed by : [facility], [address] [place] [address]., [address] Blood 05/12/2024 2:20 PM MULTISKILL OPERATOR 05/12/2024 2:28 PM MULTISKILL OPERATOR us Clifton Cain DO LAB BLOOD ORDERABLES Final Result AYSE [address] [facility] Department [place] [address] * XR Elbow Right 3+ views (04/15/2024 12:01 PM MULTISKILL OPERATOR) Anatomical Region Laterality Modality Upper Extremities, Elbow Right Compute d Radiography 04/15/2024 12:1 0 PM MULTISKILL OPERATOR Narrative 04/15/2024 12:12 PM MULTISKILL OPERATOR EXAM DESCRIPTION: XR ELBOW RIGHT 3 OR [...] by Ric Nixon M.D. CH: Report ID: [id number] Reading Location: [id number] Procedure Note Ric Nixon Jr., MD - [...] Ric Nixon M.D. CH: HAYDEN Report ID: [id number] Reading Location: [id number] [facility] Jab[facility] CALIX IMG XR PROCEDURES Final Result * XR Humerus Right (04/15/2024 11:21 AM MULTISKILL OPERATOR) Anatomical Region Laterality Modality Upper Extremities, Upper Arm Right Com puted Radiography 04/15/2024 11:4 6 AM MULTISKILL OPERATOR Narrative 04/15/2024 11:47 AM MULTISKILL OPERATOR EXAM DESCRIPTION: XR HUMERUS RIGHT 2 OR [...] Zana Sanders D.O. PS: MICKIE Report ID: [id number] Reading Location: [id number] Procedure Note Zana Sanders DO - 04/15/2024 [...] Zana Sanders D.O. PS: MICKIE Report ID: [id number] Reading Location: [place] [address] Tristen Barboza MD IMG XR PROCEDURES Final Result * POCT hCG, urine (04/15/2024 11:04 AM MULTISKILL OPERATOR) HCG, ur, POC Negative Negative Lot Number [id number] QC Backgroud Clear Acceptable QC Control Line Acceptable Urine 04/15/2024 11:0 4 AM MULTISKILL OPERATOR Tristen Barboza MD POINT OF CARE TEST ORDERABLES F inal Result * N. gonorrhoeae/C. trachomatis Amplification Urine (06/13/2022 3:09 PM CDT) Pathologist [facility] C. trachomatis Not Detected Not Detected AYSE CORDERO Comment:Testing performed by : [facility], [address] [place] [address]., [address] N. gonorrhoeae Not Detected Not Detected AYSE CORDERO Comment: Interpretive Data Testing performed by the [facility]. This assay detects Chlamydia trachomatis and [...] last revised on 2019. Testing performed by: [facility], [address] [place] [address]., [address] Urine (None) 06/13/2022 3:09 PM CDT 06/13/2022 4:09 PM CDT Maria Teresa OLIVA LAB MICROBIOLOGY - GENERAL ORDER SADIA Final Result AYSE [address] [facility] Department [place] [address] * Hepatitis panel, acute (02/01/2022 7:53 PM CDT) Hep A IgM Nonreactive Nonreactive AYSE Comment: Interpretive Data: If Hep A IgM Ab is reported as Equivocal, a new sample should be drawn in two weeks for testing. Current interpretive data was last revised on 19. Hep B core IgM Nonreactive Nonreactive [facility] Comment: Interpretive Data If HepB Core IgM Ab is reported as Equivocal, a new sample should be drawn in two weeks for testing. Current interpretive data was last revised on 19. Hep C Ab Nonreactive Nonreactive [facility] Comment: Interpretive Data Nonreactive: Antibodies to HCV [...] last revised on 2019. HepBsAg Nonreactive Nonreactive [facility] Blood 02/01/2022 7:53 PM CDT 02/01/2022 11:28 PM CDT Liz Tucker DO LAB MICROBIOLOGY - GENERAL ORDE RUTH Final Result AYSE [address] [facility] Department [place] [address] from Last 3 Months or Most Recently Relevant to Health Maintenance Insurance [facility] Care Teams Straightening Press Operator Helper Relationship Specialty Start Date End Date Garrett Sanders MD [address] [facility] [place] [address] PCP - General Family Medicine 04/09/23
--- OUTSIDE RECORDS SUMMARY | 2024-07-08 01:35 | XMS_ITS | Encounter Summary ---
Author Organization [facility] Healthcare Address [address] [place] [address] Care Team Providers Care Personnel Coordinator Name Role Phone Garrett Sanders MD Primary Care Provider [phone] Encounter Details Date Type Department Care Team (Late st Contact Info) Description 06/02/2024 Results Follow-Up [facility] Family Medicine at [address] [place] [address] Garrett Sanders MD [address] [place] [address] [address] [place] [address] Social History Tobacco Use Types Packs/Day Years [...] on file Legal Sex Female 5:33 AM SOFT SUGAR OPERATOR HEAD Gender Identity Not on file Sexual Orientation Not on file documented as of this encounter Plan of Treatment Not on file documented as of this encounter Visit Diagnoses Not on filedocumented in this encounter Care Teams Personnel Coordinator Relationship Specialty Start Date End Date Garrett Sanders MD [address] [facility] [address] [place] [address] [place] [address] PCP - General Family Medicine 04/09/23 documented as of this encounter
--- OUTSIDE RECORDS SUMMARY | 2024-07-08 01:35 | XMS_ITS | Encounter Summary ---
Author Organization [facility] Healthcare Address [address] [place] [address] Care Team Providers Care Sales & Service Associate Name Role Phone Samantha Olsen Primary Care Provider Fatuma Theodore NP Primary Care Provider [phone] Garrett Sanders MD Primary Care Provider [phone] Encounter Details Date Type Department Care Team (Late st Contact Info) Description 01/10/2022 Telephone [facility] OP Physical Therapy [address] [place] [id number] Rosalva Hurley, PT Social History Tobacco [...] on file Legal Sex Female 5:33 AM ENGRAVING PLATE MAKER Gender Identity Not on file Sexual Orientation Not on file documented as of this encounter Plan of Treatment Not on file documented as of this encounter Visit Diagnoses Not on filedocumented in this encounter Additional Health Concerns Infection Onset Date Last Indicated Resolved Time COVID: Suspected 02/14/2023 02/14/2023 02/14/2023 2:34 PM ENGRAVING PLATE MAKER COVID: Suspected 04/09/2023 04/09/2023 04/09/2023 11:05 PM ENGRAVING PLATE MAKER documented as of this encounter Care Teams Sales & Service Associate Relationship Specialty Start Date End Date Samantha Olsen PA PCP - General Family Medicine 12/13/21 01/28/23 Fatuma Theodore NP [address] [facility] [address] [place] [address] [place] [address] PCP - General Family Medicine 01/29/23 04/08/23 Garrett Sanders MD [address] [facility] [address] [place] [address] [place] [address] PCP - General Family Medicine 04/09/23 documented as of this encounter
--- OUTSIDE RECORDS SUMMARY | 2024-07-08 01:35 | XMS_ITS | Clinical Summary ---
Author Organization [facility] Address [address] [place] [address] Care Team Providers Care Weigher Packing Name Role Phone Garrett Sanders MD Primary Care Provider [phone] Allergies Active Allergy Reactions Criticality Noted Date [...] 02/14/2023 Assessment & Plan (02/14/2023 2:58 PM MUSEUM INFORMATICS SPECIALIST): Warm compresses every 4-6 hours for 5-10 minutes Frequent handwashing, lid massage Doxycycline po 100 mg BID x 7 days. Sunscreen use advised. Topical erythromycin ER for worsening, pain, streaking redness, worsening swelling, vision impairment Upper respiratory tract infection 02/14/2023 Assessment & Plan (02/14/2023 2:59 PM MUSEUM INFORMATICS SPECIALIST): Rapid strep negative Rapid covid, flu negative [...] 5pm. Assessment & Plan (04/19/2023 12:26 PM MUSEUM INFORMATICS SPECIALIST): Recommended aggressive Lifestyle modification and weight loss [...] 08/30/2021 Assessment & Plan (03/12/2023 3:27 PM MUSEUM INFORMATICS SPECIALIST): Continue current levothyroxine dose. Will check thyroid function test and adjust levothyroxine dose accordingly. TSH goal lower normal Assessment & Plan (02/13/2022 2:37 PM MUSEUM INFORMATICS SPECIALIST): Continue current levothyroxine dose. Will check thyroid function test and adjust levothyroxine dose accordingly. 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 Biochemical evaluation with thyroid tumor markers. We will also obtain neck ultrasound for evaluation of the neck. If above are in acceptable range, will plan follow-up on yearly basis Assessment & Plan (02/13/2022 2:38 PM MUSEUM INFORMATICS SPECIALIST): No evidence of tumor recurrence on biochemical [...] Encounter for STD screening;Recorded Elsewhere: No Location: [facility] Source: EHR Chronic: N Practice ID: [id number] Billable Time: 01:15:00 PM Contraceptive management 04/23/2018 Overview (04/19/2023): Encounter for routine checking of intrauterine contraceptive device;Recorded Elsewhere: No Location: [facility] Source: EHR Chronic: N Practice ID: [id number] Billable Time: 09:45:00 AM Pelvic and perineal pain 02/27/2018 Overview (04/19/2023): Pelvic and perineal pain;Recorded Elsewhere: No Location: [facility] Source: EHR Chronic: N Practice ID: [id number] Billable Time: 11:00:00 AM Menstrual cycle disorder 05/19/2015 Overview (04/19/2023): Menometrorrhagia;Recorded Elsewhere: No Location: [facility] Source: EHR Chronic: N Practice ID: [id number] Billable Time: 10:30:00 AM Irregular menses 01/09/2015 Resolved Problems Problem Noted Date Diagnosed Date Resolved Date Abscess of left thigh 06/14/20222022 Hypoglycemia 02/13/2022 01/29/2023 Assessment & Plan (02/13/2022 2:39 PM MUSEUM INFORMATICS SPECIALIST): No documented low blood sugar Advised BG monitoring with symptoms to establish correlation & inform further work up Positive FLORENCIO (antinuclear antibody) 10/14/2021 01/29/2023 Rash 09/20/2021 01/29/2023 Sore throat 09/20/2021 01/29/2023 Infectious mononucleosis without complication 09/05/1901/29/2023 Leg mass, left 09/09/2018 01/29/2023 Encounters Date Type Department Care Team Description 06/02/2024 Results Follow-Up [facility] Medical [facility] at [address] [place] [address] Garrett Sanders MD 05/28/2024 2:19 PM MUSEUM INFORMATICS SPECIALIST - 05/28/2024 11:59 PM MUSEUM INFORMATICS SPECIALIST Hospital Encounter [facility] Diagnostic Imaging [address] [place] [address] Chronic pain of right knee Discharge Disposition: Discharge to home or self care 05/28/2024 2:10 PM MUSEUM INFORMATICS SPECIALIST Lab [facility] Lab [address] [place] [address] Postoperative hypothyroidism 05/28/2024 Results Follow-Up [facility] at [address] [place] [address] Garrett Sanders MD 05/23/2024 Nurse Triage [facility] at [address] [place] [address] Garrett Sanders MD 05/23/2024 Nurse Triage [facility] at [address] [place] [address] Chata Sommer RN 05/22/2024 Telephone [facility] Medical [facility] at [address] [place] [address] Derrek Dangelo MD 05/12/2024 5:53 PM MUSEUM INFORMATICS SPECIALIST - 05/12/2024 6:26 PM [facility] Emergency [facility] Emergency Department [address] [place] [id number] Colitis (Primary Dx) Discharge Disposition: Discharge to home or self care 05/12/2024 Nurse Triage [facility] Family Medicine at [address] [place] [phone] Garrett Sanders MD 04/15/2024 10:25 AM MUSEUM INFORMATICS SPECIALIST - 04/15/2024 12:56 PM [facility] Emergency [facility] Emergency Department [address] [place] [address] Discharge Disposition: Left without being seen from [...] on file Legal Sex Female 5:33 AM MUSEUM INFORMATICS SPECIALIST Gender Identity Not on file Sexual Orientation Not on file Obstetrics History Last Filed Vital Signs Vital Sign Reading Time Taken Comments Blood Pressure 109/76 05/12/2024 6:05 PM MUSEUM INFORMATICS SPECIALIST Pulse 55 05/12/2024 6:05 PM MUSEUM INFORMATICS SPECIALIST Temperature 36.3 C (97.3 F) 05/12/2024 2:11 PM MUSEUM INFORMATICS SPECIALIST Respiratory Rate 18 05/12/2024 6:05 PM MUSEUM INFORMATICS SPECIALIST Oxygen Saturation 98% 05/12/2024 6:05 PM MUSEUM INFORMATICS SPECIALIST Inhaled Oxygen Concentration - - Weight 118.1 kg (260 lb 5.8 oz) 05/12/2024 2:11 PM MUSEUM INFORMATICS SPECIALIST Height 172.7 cm (5' 8 ) 05/12/2024 2:11 PM MUSEUM INFORMATICS SPECIALIST Body Mass Index 39.59 05/12/2024 2:11 PM MUSEUM INFORMATICS SPECIALIST Plan of Treatment Health Maintenance Due Date [...] Read Routine (OP Routine) 05/28/2024 2:35 PM MUSEUM INFORMATICS SPECIALIST Chronic pain of right knee T4, FREE Routine 05/28/2024 2:15 PM MUSEUM INFORMATICS SPECIALIST Postoperative hypothyroidism THYROID FUNCTION CASCADE Routine 05/28/2024 2:15 PM MUSEUM INFORMATICS SPECIALIST Postoperative hypothyroidism CTA ABDOMEN PELVIS W WO CONTRAST ED 05/12/2024 5:29 PM MUSEUM INFORMATICS SPECIALIST URINALYSIS AND REFLEX TO MICROSCOPIC AND CULTURE STAT 05/12/2024 5:03 PM MUSEUM INFORMATICS SPECIALIST POCT HCG, URINE Routine 05/12/2024 4:59 PM MUSEUM INFORMATICS SPECIALIST EGFR STAT 05/12/2024 2:20 PM MUSEUM INFORMATICS SPECIALIST DIFFERENTIAL AUTO STAT 05/12/2024 2:2 0 PM MUSEUM INFORMATICS SPECIALIST LIPASE STAT 05/12/2024 2:20 PM MUSEUM INFORMATICS SPECIALIST COMPREHENSIVE METABOLIC PANEL STAT 05/12/2024 2:20 PM MUSEUM INFORMATICS SPECIALIST CBC WITH AUTO DIFFERENTIAL STAT 05/12/2024 2:20 PM MUSEUM INFORMATICS SPECIALIST XR ELBOW RIGHT 3 OR MORE VIEWS ED 04/15/2024 12:01 PM MUSEUM INFORMATICS SPECIALIST XR HUMERUS RIGHT 2 OR MORE VIEWS ED 04/15/2024 11:21 AM MUSEUM INFORMATICS SPECIALIST POCT HCG, URINE Routine 04/15/2024 11:04 AM MUSEUM INFORMATICS SPECIALIST N. GONORRHOEAE/C. TRACHOMATIS AMPLIFICATION STAT 06/13/2022 3:09 PM CDT HEPATITIS PANEL, ACUTE STAT 02/01/2022 7:53 PM CDT from Last 3 Months or Most Recently Relevant to Health Maintenance Results * XR Knee Right 4 or More Views (05/28/2024 2:35 PM MUSEUM INFORMATICS SPECIALIST) Anatomical Region Laterality Modality Lower Extremities, Knee Right Computed Radiography 06/01/2024 7:27 AM MUSEUM INFORMATICS SPECIALIST Narrative 06/01/2024 7:28 AM MUSEUM INFORMATICS SPECIALIST EXAM DESCRIPTION: XR KNEE RIGHT 4 OR [...] by Arik Camacho M.D. T: Report ID: [id number] Reading Location: [id number] Procedure Note Arik Camacho MD - 06/01/2024 [...] by Arik Camacho M.D. T: Report ID: [id number] Reading Location: [id number] Garrett Sanders MD IM XR PROCEDURES Final Result * (ABNORMAL) Thyroid Function Harmon (05/28/2024 2:15 PM MUSEUM INFORMATICS SPECIALIST) TSH 40.70(H) 0.30 - 4.20 mcIUnit/mL Blood 05/28/2024 2:15 PM MUSEUM INFORMATICS SPECIALIST 05/28/2024 2:30 PM MUSEUM INFORMATICS SPECIALIST Garrett Sanders MD LAB BLOOD ORDERABLES Final Resul t Performing Organization Address City/[facility] Co de Phone Number AYSE [address] [place] [employer] [place] [address] * T4, free (05/28/2024 2:15 PM MUSEUM INFORMATICS SPECIALIST) Free T4 1.03 0.90 - 1.70 ng/dL Blood 05/28/2024 2:15 PM MUSEUM INFORMATICS SPECIALIST 05/28/2024 2:30 PM MUSEUM INFORMATICS SPECIALIST Narrative AYSE - 05/28/2024 4:15 PM MUSEUM INFORMATICS SPECIALIST This test was reflexed from a TSH result. Garrett Sanders MD LAB BLOOD ORDERABLES Final Resul t Performing Organization Address [facility] de Phone Number AYSE [address] [address] * CTA Abdomen Pelvis (05/12/2024 5:29 PM MUSEUM INFORMATICS SPECIALIST) Anatomical Region Laterality Modality Body N/A Computed Tomogra phy 05/12/2024 5:33 PM MUSEUM INFORMATICS SPECIALIST Narrative 05/12/2024 5:39 PM MUSEUM INFORMATICS SPECIALIST EXAM DESCRIPTION: CTA ABDOMEN PELVIS REASON FOR [...] Zana Sanders D.O. PS: PS Report ID: [id number] Reading Location: [id number] Procedure Note Zana Sanders, DO - 05/12/2024 [...] Zana Sanders D.O. PS: PS Report ID: [id number] Reading Location: [place] [address] PROCEDURES Final Result * Urinalysis reflex to microscopic and culture Urine (05/12/2024 5:03 PM MUSEUM INFORMATICS SPECIALIST) Color, ur Yellow Yellow Comment:Testing performed by : [address] [address] Clarity, ur Clear Clear AYSE Comment:Testing performed by : [address] [address] Specific gravity, ur 1.010 1.003 - 1.030 AYSE Comment:Testing performed by : [address] [address] pH, urine 7.0 AYSE Comment: Interpretive Data U rine pH is affected by diet, medications, systemic acid-base disturbances, and renal tubular function. pH may affect urinary stone formation. For example, urine pH below 6.0 may help reduce the tendency for calcium phosphate stones and pH greater than 6.0 may reduce the tendency for uric acid stone formation. Source: [facility] [employer] Current Interpretive Data was last revised on 2017 Testing performed by: [address] [address] Protein, ur ql Negative Negative AYSE Comment:Testing performed by : [address] [address] Glucose, ur ql Negative Negative AYSE Comment:Testing performed by : [address] [address] Ketones, ur Negative Negative AYSE Comment:Testing performed by : [address] [address] Bilirubin, ur Negative Negative AYSE Comment:Testing performed by : [address] [address] Blood, ur Negative Negative AYSE Comment:Testing performed by : [address] [address] Urobilinogen, ur <2.0 <2.0 mg/dL AYSE CORDERO Comment:Testing performed by : [facility], [address] [place] [address]., [address] Nitrite, ur Negative Negative AYSE Comment:Testing performed by : [address] [address] Leukocyte esterase, ur Negative Negative AYSE Comment:Testing performed by : [address], [place]., [address] UA reflex comment Reflex conditions for microscopic UA and culture not met. AYSE Comment:Testing performed by : [facility], [address] [place] [address], [place]., [address] Urine 05/12/2024 5:03 PM MUSEUM INFORMATICS SPECIALIST 05/12/2024 5:10 PM MUSEUM INFORMATICS SPECIALIST Clifton Cain DO LAB MICROBIOLOGY - GENERAL ORDERABLES Final Result Performing Organization Address City/State/[facility] Co de Phone Number AYSE [address] [facility] Department [place] [address] * POCT hCG, urine (05/12/2024 4:59 PM MUSEUM INFORMATICS SPECIALIST) HCG, ur, POC Negative Negative Lot Number [id number] QC Backgroud Clear Acceptable QC Control Line Acceptable Urine 05/12/2024 4:59 PM MUSEUM INFORMATICS SPECIALIST Clifton Cain DO POINT OF CARE TEST ORDERABL ES Final Result * eGFR (05/12/2024 2:20 PM MUSEUM INFORMATICS SPECIALIST) eGFR 77 >=60 mL/min/1. 73 m2 Comment: [...] was last reviewed 2021. Testing performed by: [address] [address] Blood 05/12/2024 2:20 PM MUSEUM INFORMATICS SPECIALIST 05/12/2024 2:28 PM MUSEUM INFORMATICS SPECIALIST us Clifton Cain DO LAB BLOOD ORDERABLES Final Result AYSE [facility] Department [place] [address] * (ABNORMAL) Differential, auto (05/12/2024 2:20 PM MUSEUM INFORMATICS SPECIALIST) Neutrophil abs 5.4 1.5 - 6.5 K/cumm Comment:Testing performed by : [address] [address] Imm gran abs 0.0 0.0 - 0.1 K/cumm AYSE Comment:Testing performed by : [address] [address] Lymphocyte abs 2.0 0.8 - 3.3 K/cumm AYSE Comment:Testing performed by : [address] [address] Monocyte abs 1.0(H) 0.2 - 0.8 K/cumm AYSE Comment:Testing performed by : [address] [address] Eosinophil abs 0.1 0.0 - 0.5 K/cumm AYSE Comment:Testing performed by : [address] [address] Basophil abs 0.1 0.0 - 0.1 K/cumm AYSE Comment:Testing performed by : [address] [address] Neutrophil pct 62.9 % AYSE Comment: Interpretive Data Percent cell count reference ranges are not reported, since discordance with absolute values may lead to misinterpretation of CBC data. Current Interpretive Data was last revised on 2017. Testing performed by: [address] [address] Imm gran pct 0.2 % [facility] Comment: Interpretive Data Percent cell count reference ranges are not reported, since discordance with absolute values may lead to misinterpretation of CBC data. Current Interpretive Data was last revised on 2017. Testing performed by: [address] [address] Lymphocyte pct 23.4 % [facility] Comment: Interpretive Data Percent cell count reference ranges are not reported, since discordance with absolute values may lead to misinterpretation of CBC data. Current Interpretive Data was last revised on 2017. Testing performed by: [address] [address] Monocyte pct 11.3 % [facility] Comment: Interpretive Data Percent cell count reference ranges are not reported, since discordance with absolute values may lead to misinterpretation of CBC data. Current Interpretive Data was last revised on 2017. Testing performed by: [address] [address] Eosinophil pct 1.5 % [facility] Comment: Interpretive Data Percent cell count reference ranges are not reported, since discordance with absolute values may lead to misinterpretation of CBC data. Current Interpretive Data was last revised on 2017. Testing performed by: [address] [address] Basophil pct 0.7 % [facility] Comment: Interpretive Data Percent cell count reference ranges are not reported, since discordance with absolute values may lead to misinterpretation of CBC data. Current Interpretive Data was last revised on 2017. Testing performed by: [address] [address] Blood 05/12/2024 2:20 PM MUSEUM INFORMATICS SPECIALIST 05/12/2024 2:28 PM MUSEUM INFORMATICS SPECIALIST Clifton Cain DO LAB BLOOD ORDERABLES Final Result AYSE [address] [facility] Department [place] [address] * (ABNORMAL) CBC with auto differential (05/12/2024 2:20 PM MUSEUM INFORMATICS SPECIALIST) [facility] WBC 8.7 3.8 - 9.9 K/cumm Comment:Testing performed by : [address] [address] Hgb 15.5 11.9 - 15.5 g/dL AYSE Comment:Testing performed by : [address] [address] Hct 45.8(H) 35.6 - 45.5 % AYSE Comment:Testing performed by : [address] [address] Plt 416(H) 150 - 400 K/cumm AYSE Comment:Testing performed by : [address] [address] MPV 10.1 9.1 - 12.3 fL AYSE Comment:Testing performed by : [address] [address] RBC 4.82 3.90 - 5.20 M/cumm AYSE Comment:Testing performed by : [address] [address] MCV 95.0 81.3 - 96.4 fL AYSE Comment:Testing performed by : [address] [address] MCH 32.2 27.1 - 33.3 pg AYSE Comment:Testing performed by : [address] [address] MCHC 33.8 32.3 - 35.7 g/dL AYSE Comment:Testing performed by : [address] [address] RDW CV 13.4 11.1 - 14.9 % AYSE Comment:Testing performed by : [address] [address] RDW SD 47.4 35.7 - 48.1 fL AYSE Comment:Testing performed by : [address] [address] NRBC abs 0.00 0.00 - 0.01 K/cumm AYSE CORDERO Comment:Testing performed by : [address] [address] Blood Venous blood specimen / Unknown 05/12/2024 2:20 PM MUSEUM INFORMATICS SPECIALIST 05/12/2024 2:28 PM MUSEUM INFORMATICS SPECIALIST Clifton Cain LAB BLOOD ORDERABLES Final Result Performing Organization Address [facility] Co de Phone Number [address] [place] [address] * Lipase (05/12/2024 2:20 PM MUSEUM INFORMATICS SPECIALIST) [facility] Lipase 24 10 - 99 Units/L Comment:Testing performed by : [address] [address] Blood Venous blood specimen / Unknown 05/12/2024 2:20 PM MUSEUM INFORMATICS SPECIALIST 05/12/2024 2:28 PM MUSEUM INFORMATICS SPECIALIST Clifton Cain LAB BLOOD ORDERABLES Final Result Performing Organization Address City/[facility] Co de Phone Number [address] [place] [address] * Comprehensive metabolic panel (05/12/2024 2:20 PM MUSEUM INFORMATICS SPECIALIST) [facility] Sodium 137 135 - 145 mmol/L Comment:Testing performed by : [address] [address] Potassium, pl 4.0 3.3 - 4.9 mmol/L AYSE CORDERO Comment:Testing performed by : [address] [address] Chloride 101 97 - 110 mmol/L AYSE CORDERO Comment:Testing performed by : [address] [address] CO2 23 22 - 32 mmol/L AYSE CORDERO Comment:Testing performed by : [address] [place]., [address] Anion gap 13 2 - 15 mmol/L AYSE Comment:Testing performed by : [address] [address] BUN 7 6 - 25 mg/dL AYSE Comment:Testing performed by : [address] [address] Creatinine 1.05 0.60 - 1.10 mg/dL AYSE Comment:Testing performed by : [address] [address] Glucose 121 70 - 199 mg/dL [facility] Comment: Interpretive Data Fasting glucose >/= 126 [...] was last revised 2022. Testing performed by: [address] [address] Calcium 9.2 8.5 - 10.3 mg/dL AYSE Comment:Testing performed by : [address] [address] Bilirubin, total 1.0 0.1 - 1.2 mg/dL [facility] Comment:Testing performed by : [address] [address] Protein, pl 7.9 6.5 - 8.5 g/dL AYSE Comment:Testing performed by : [address] [address] Albumin 4.6 3.5 - 5.0 g/dL AYSE Comment:Testing performed by : [address] [address] Alk phos 52 40 - 130 Units/L AYSE Comment:Testing performed by : [address] [address] ALT 18 7 - 45 Units/L AYSE Comment:Testing performed by : [facility], [address] [place] [address]., [address] AST 25 10 - 45 Units/L AYSE Comment:Testing performed by : [facility], [address] [place] [address]., [address] Blood 05/12/2024 2:20 PM MUSEUM INFORMATICS SPECIALIST 05/12/2024 2:28 PM MUSEUM INFORMATICS SPECIALIST us Clifton Cain DO LAB BLOOD ORDERABLES Final Result AYSE [address] [facility] Department [place] [address] * XR Elbow Right 3+ views (04/15/2024 12:01 PM MUSEUM INFORMATICS SPECIALIST) Anatomical Region Laterality Modality Upper Extremities, Elbow Right Compute d Radiography 04/15/2024 12:1 0 PM MUSEUM INFORMATICS SPECIALIST Narrative 04/15/2024 12:12 PM MUSEUM INFORMATICS SPECIALIST EXAM DESCRIPTION: XR ELBOW RIGHT 3 OR [...] by Ric Nixon M.D. CH: Report ID: [id number] Reading Location: [id number] Procedure Note Ric Nixon Jr., MD - [...] Ric Nixon M.D. CH: HAYDEN Report ID: [id number] Reading Location: [id number] us [facility] CALIX IMG XR PROCEDURES Final Result * XR Humerus Right (04/15/2024 11:21 AM MUSEUM INFORMATICS SPECIALIST) Anatomical Region Laterality Modality Upper Extremities, Upper Arm Right Com puted Radiography 04/15/2024 11:4 6 AM MUSEUM INFORMATICS SPECIALIST Narrative 04/15/2024 11:47 AM MUSEUM INFORMATICS SPECIALIST EXAM DESCRIPTION: XR HUMERUS RIGHT 2 OR [...] Zana Sanders D.O. PS: PS Report ID: [id number] Reading Location: [id number] Procedure Note Zana Sanders DO - 04/15/2024 [...] Zana Sanders D.O. PS: PS Report ID: [id number] Reading Location: [place] [address] Tristen Barboza MD IMG XR PROCEDURES Final Result * POCT hCG, urine (04/15/2024 11:04 AM MUSEUM INFORMATICS SPECIALIST) Pathologist [facility] HCG, ur, POC Negative Negative Lot Number [id number] QC Backgroud Clear Acceptable QC Control Line Acceptable Urine 04/15/2024 11:0 4 AM MUSEUM INFORMATICS SPECIALIST Re[facility] CALIX POINT OF CARE TEST ORDERABLES F inal Result * N. gonorrhoeae/C. trachomatis Amplification Urine (06/13/2022 3:09 PM CDT) [facility] C. trachomatis Not Detected Not Detected AYSE CORDERO Comment:Testing performed by : [facility], [address] [place] [address]., [address] N. gonorrhoeae Not Detected Not Detected AYSE CORDERO Comment: Interpretive Data Testing performed by the [facility]. This assay detects Chlamydia trachomatis and [...] last revised on 2019. Testing performed by: [facility], [address] [place] [address]., [address] Urine (None) 06/13/2022 3:09 PM CDT 06/13/2022 4:09 PM CDT Maria Teresa OLIVA LAB MICROBIOLOGY - GENERAL ORDER SADIA Final Result AYSE [address] [facility] Department [place] [address] * Hepatitis panel, acute (02/01/2022 [...] on 19. Hep C Ab Nonreactive Nonreactive [facility] Comment: Interpretive Data Nonreactive: Antibodies to [...] GENERAL ORDE RUTH Final Result AYSE [address] [facility] [place] [address] from Last 3 Months or Most Recently Relevant to Health Maintenance Insurance [facility] Care Teams Weigher Packing Relationship Specialty Start Date End Date Garrett Sanders MD [address] [facility] [place] [address] PCP - General Family Medicine 04/09/23
--- OUTSIDE RECORDS SUMMARY | 2024-07-08 01:35 | XMS_ITS | Encounter Summary ---
Author Organization [facility] Healthcare Address [address] [place] [address] Care Team Providers Care Academic Manager Name Role Phone Garrett Sanders MD Primary Care Provider [phone] Encounter Details Date Type Department Care Team (Late st Contact Info) Description 05/28/2024 Results Follow-Up [facility] Family Medicine at [address] [place] [address] Garrett Sanders MD [address] [place] [address] [address] [place] [address] Social History Tobacco Use Types Packs/Day Years [...] on file Legal Sex Female 5:33 AM GUIDE VISITOR Gender Identity Not on file Sexual Orientation Not on file documented as of this encounter Miscellaneous Notes * Telephone Encounter - Garrett Sanders MD - 05/29/2024 3:43 PM CST She needs to take on empty stomach by itself for that to work. E VISITOR documented in this encounter Plan of Treatment Not on file documented as of this encounter Visit Diagnoses Not on filedocumented in this encounter Care Teams Academic Manager Relationship Specialty Start Date End Date Garrett Sanders MD [address] [place] [address] PCP - General Family Medicine 04/09/23 documented as of this encounter
--- OUTSIDE RECORDS SUMMARY | 2024-07-08 01:35 | XMS_ITS | Clinical Summary ---
Author Organization [facility] Address [address] [place] [address] Phone Care Team Providers Care Automation Architect Name Role Phone Giancarlo Yeh MD Primary Care Provider [phone] Allergies Active Allergy Reactions Criticality Noted Date [...] on file Legal Sex Female 3:42 PM MAGNETIZER Gender Identity Not on file Sexual Orientation [...] 12/30/2002, 05/08/2001, 03/12/2001, Additional history exists Insurance [facility] MEDICAID [facility] MEDICAID Advance Directives For more information, please contact: [phone] * Default Full Code - Needs Discussion (Latest Code Status on File) Date Activated Date Inactivated Comments 09/04/2021 8:56 AM 09/04/2021 2:27 PM * Full Code Date Activated Date Inactivated Comments 05/13/2018 1:26 PM 05/14/2018 11:46 AM Care Teams Automation Architect Relationship Specialty Start Date End Date Giancarlo Yeh MD PCP - General Family Practice 09/03/21
--- OUTSIDE RECORDS SUMMARY | 2024-07-08 01:35 | XMS_ITS | Clinical Summary ---
Author Organization [facility] Address [address] [place] [address] Care Team Providers Care Digital Associate Name Role Phone Berkley De La Paz MD Primary Care Provider [phone] Berkley De La Paz MD Unavailable [phone] Source Comments [facility],non-owned Affiliates and Associated Physician Practices is amultiple site organization consisting of ambulatory clinics and hospital sitesin [place], [place], [place] and [place]. This disclosure is being madepursuant to the Care Everywhere program and may not contain all information available regarding this patient. Last updated 17.[facility] Allergies Active Allergy Reactions Criticality Noted Date [...] age to complete this topic Care Teams Digital Associate Relationship Specialty Start Date End Date Berkley De La Paz MD [address] [place] [address] PCP - General 04/11/18 Berkley De La Paz MD [address] [id number] Pediatrics 04/11/18
--- OUTSIDE RECORDS SUMMARY | 2024-07-08 01:35 | XMS_ITS | Clinical Summary ---
Author Organization [facility] Address On license of [facility] [place] [address] Care Team Providers Care Metal Casket Assembler Name Role Phone Tamra Moran NP Primary Care Provider Allergies Active Allergy Reactions Criticality Noted Date [...] Noted Date Diagnosed Date Papillary thyroid carcinoma ([facility]/HCC HHS/HCC) Immunizations Name Administration Dates Next Due [...] Sex Assigned at Female 02/16/2021 2:40 PM GARBAGE COLLECTOR SUPERVISOR Legal Sex Female 6:24 PM CDT Gender Identity Female 02/16/2021 2:40 PM GARBAGE COLLECTOR SUPERVISOR Sexual Orientation Straight 02/16/2021 2: 40 PM GARBAGE COLLECTOR SUPERVISOR Last Filed Vital Signs Vital Sign Reading Time Taken Comments Blood Pressure 146/83 04/11/2021 1:09 PM GARBAGE COLLECTOR SUPERVISOR Pulse 87 04/11/2021 1:09 PM GARBAGE COLLECTOR SUPERVISOR Temperature 36.2 C (97.1 F) 04/11/2021 1:09 PM GARBAGE COLLECTOR SUPERVISOR Respiratory Rate 18 04/11/2021 1:09 PM GARBAGE COLLECTOR SUPERVISOR Oxygen Saturation 98% 04/11/2021 1:09 PM GARBAGE COLLECTOR SUPERVISOR Inhaled Oxygen Concentration - - Weight 108.9 kg (240 lb) 04/11/2021 1:09 PM GARBAGE COLLECTOR SUPERVISOR Height 175.3 cm (5' 9 ) 04/11/2021 1:09 PM GARBAGE COLLECTOR SUPERVISOR Body Mass Index 35.44 04/11/2021 1:09 PM GARBAGE COLLECTOR SUPERVISOR Plan of Treatment Health Maintenance Due Date [...] COVID-19 Vaccine ( season) 2023 PHQ-2 (Physician [place]) 04/02/2024 DTaP, Tdap and Td Vaccines (8 [...] VE NON-REACTI VE 01/21/2021 5:16 PM CDT [facility] 01/21/2021 3:03 PM CDT us Tamra Moran SAP BASIS CONSULTANT LABORATORY Final Result [facility] [address] [place] [address], [place] [phone] from Last 3 Months or Most Recently Relevant to Health Maintenance Insurance [employer] [place] [employer] Care Teams Metal Casket Assembler Relationship Specialty Start Date End Date Tamra Moran NP [address] [place] [address] PCP - General Nurse Practitioner Family 01/14/21
--- OUTSIDE RECORDS SUMMARY | 2024-07-08 01:35 | XMS_ITS | Encounter Summary ---
Author Organization [facility] Healthcare Address [address] [place] [address] Care Team Providers Care Sap Portal Architect Name Role Phone Samantha Olsen Primary Care Provider Fatuma Theodore NP Primary Care Provider [phone] Garrett Sanders MD Primary Care Provider [phone] Encounter Details Date Type Department Care Team (Late st Contact Info) Description 01/10/2022 Telephone [facility] Physical Therapy [address] [place] [id number] Rosalva Hurley, PT Social History Tobacco [...] on file Legal Sex Female 5:33 AM RESTAURANT MANAGING PARTNER Gender Identity Not on file Sexual Orientation Not on file documented as of this encounter Plan of Treatment Not on file documented as of this encounter Visit Diagnoses Not on filedocumented in this encounter Additional Health Concerns Infection Onset Date Last Indicated Resolved Time COVID: Suspected 02/14/2023 02/14/2023 02/14/2023 2:34 PM RESTAURANT MANAGING PARTNER COVID: Suspected 04/09/2023 04/09/2023 04/09/2023 11:05 PM RESTAURANT MANAGING PARTNER documented as of this encounter Care Teams Sap Portal Architect Relationship Specialty Start Date End Date Samantha Olsen PA PCP - General Family Medicine 12/13/21 01/28/23 Fatuma Theodore NP [address] [place] [address] [place] [id number] PCP - General Family Medicine 01/29/23 04/08/23 Garrett Sanders MD [address] [place] [address] [place] [id number] PCP - General Family Medicine 04/09/23 documented as of this encounter
[2024-07-08] MEDS: SODIUM CHLORIDE 0.9% IV 1,000 ML 999 ML IV CONT (02:41)
[2024-07-08 03:00] LABS: NT Pro B Type Natriuretic Pept 102 pg/mL (19.9-100)
[2024-07-08 03:03] LABS: Troponin I < 0.012 ng/mL (0.000-0.034)
--- NOTE | 2024-07-08 03:12 | ED.SYNCOPE ---
HPI - Syncope General Chief Complaint: Syncope <THANH Tejeda Last Filed: 07/08/24 17:15> Stated Complaint: Dizzy, Syncopal episode <THANH Tejeda Last Filed: 07/08/24 17:15> Time Seen by Provider: 07/08/24 01:13 <THANH Tejeda Last Filed: 07/08/24 17:15> Source: patient <THANH Tejeda Last Filed: 07/08/24 17:15> Mode of arrival: EMS <THANH Tejeda Last Filed: 07/08/24 17:15> Limitations: no limitations <THANH Tejeda Last Filed: 07/08/24 17:15> History of Present Illness HPI narrative: Patient is a 23 y/o female, with PMH of thyroid CA s/p thyroidectomy on Levothyroixine, HTN, depression/anxiety, who presents to the ED via EMS with report of syncope. Patient reports she was walking around [employer] today when she began feeling dizzy, lightheaded, nauseous, felt heavy and weak overall. She then reportedly had a syncopal episode. She is unsure how long she lost consciousness for. There was no report of seizure activity. EMS was then called from [employer]. She does remember being in the ambulance. Patient states she has had syncopal episodes in the past, but they have always occurred at home and been very brief. She does feel somewhat lightheaded currently, feels heavy overall in her extremities with intermittent paresthesias. Denies chest pain. Has had some intermittent shortness breath with exertion recently. Also reports worsening swelling of her lower extremities. States swelling is chronic, but at times worsening. States she has been evaluated for this in the past and is on Atenolol. Denies ever being on diuretics, however does report that patient took one of her grandmother's Lasix pills today, a few hours prior to going to [facility], to try to help with the swelling. She has never taken this medication before. Patient denies current CARRILLO, vision changes, focal weakness/numbness. <Samantha Valles PA-C - Last Filed: 07/08/24 17:15> Related Data Home Medications: Home Medications ?Medication ?Instructions ?Recorded ?Confirmed ?Last Taken ?Type amlodipine 10 mg tablet 10 mg PO DAILY 05/26/24 06/06/24 06/06/24 History atenolol 50 mg tablet 50 mg PO Q24H 05/26/24 06/06/24 06/06/24 History levothyroxine 200 mcg tablet 200 mcg PO DAILY 05/26/24 06/06/24 06/06/24 History levothyroxine 25 mcg tablet 25 mcg PO DAILY 05/26/24 06/06/24 06/06/24 History naproxen 500 mg tablet 500 mg PO Q8H 05/26/24 05/26/24 Unknown History olanzapine 7.5 mg tablet 7.5 mg PO QPM 05/26/24 05/26/24 Unknown History sertraline 100 mg tablet 100 mg PO Q24H 05/26/24 05/26/24 Unknown History <Samantha Valles PA-C - Last Filed: 07/08/24 17:15> Allergies/Adverse Reactions: Allergies Allergy/AdvReac Type Severity Reaction Status Date / Time adhesive tape Allergy Intermediate Rash Verified 07/07/24 22:31 lactose AdvReac Intermediate Diarrhea Verified 07/07/24 22:31 <Samantha Valles PA-C - Last Filed: 07/08/24 17:15> Review of Systems Review of Systems: All systems reviewed & are unremarkable except as noted in HPI. <Samantha Valles PA-C - Last Filed: 07/08/24 17:15> All systems reviewed & are unremarkable except as noted in HPI and below <Samantha Valles PA-C - Last Filed: 07/08/24 17:15> [facility] Past Medical History Medical History: Medical History Tachycardia Hypertension Hypothyroidism Depression Anxiety Thyroid cancer <Samantha Valles PA-C - Last Filed: 07/08/24 17:15> Social History Social History: Social History Smoking packs per day: 1 Smoking cigarettes per day: 20.0 Years smoked: 4 Smoking pack-years: 4.00 Smoking status: Former smoker Tobacco type: cigarettes Smoking end date: 04/02/20 Additional smoking assessment comments: Vapes now, vrs smoking Alcohol intake: never Substance use type: marijuana and other Other substance usage details: Vapes and Marijuana smokes daily Living arrangements: with family Additional living arrangements comments: Brother Spiritual care concerns: No <Samantha Valles PA-C - Last Filed: 07/08/24 17:15> Exam Narrative: GENERAL: Well appearing, morbidly obese with BMI of 40.7, non-toxic, in no acute distress. HEAD: Normocephalic, atraumatic. EENT: PERRL/EOMI, conjunctiva clear, TMs clear bilaterally. RESPIRATORY: Airway patent, respirations nonlabored. Clear to auscultation bilaterally, no rales, rhonchi, wheezing. CARDIOVASCULAR: Regular rate and rhythm without murmurs, rubs, or gallops. Peripheral pulses intact ABDOMINAL: Soft, nontender, nondistended. Normoactive BS. MUSCULOSKELETAL: Moves all extremities. No gross deformities. Diffuse nonpitting edema in bilateral lower extremities, symmetric. No erythema or warmth. SKIN: Warm, dry, normal color. NEURO: A&O X3. Speech clear. Cranial nerves II-XII grossly intact. Steady gait. No ataxic movements. Strength 5 of 5 in upper and lower extremities bilaterally. Equal canal tender strength bilaterally. No pronator drift. PSYCHIATRIC: Appropriate mood and affect. Normal interaction. <Samantha Valles PA-C - Last Filed: 07/08/24 17:15> Course Course Emergency Course: 03:00 - This patient was signed out to me by ED PJ Valles pending CT angiogram of the chest with anticipated discharge. 05:54 - STAT Rad interpretation of CTA chest is limited due to artifact though shows ?no definite central pulmonary embolism is identified. There is dilatation of the main pulmonary artery. This can be seen with pulmonary hypertension. There are patchy bilateral ground-glass infiltrates.? Given the patient's slightly elevate maya white blood cell count, will discharge with azithromycin. I discussed the findings and recommendations with the patient. Discussed return and emergency precautions including signs/symptoms of ACS respiratory distress. The patient voiced understanding and agreement with the plan. All questions answered to her satisfaction. <Ruddy Christianson MD - Last Filed: 07/08/24 07:48> Vital Signs Vital signs: Vital Signs Temperature 98.2 F 07/07/24 22:34 Pulse Rate 128 H 07/07/24 22:34 Respiratory Rate 16 07/07/24 22:34 Blood Pressure 143/90 H 07/07/24 22:34 Pulse Oximetry 97 07/07/24 22:34 Oxygen Delivery Room Air 07/07/24 22:34 Temperature 98.2 F 07/07/24 22:34 Pulse Rate 84 07/08/24 06:08 Respiratory Rate 15 07/08/24 06:08 Blood Pressure 118/74 07/08/24 03:55 Pulse Oximetry 99 07/08/24 06:08 Oxygen Delivery Room Air 07/08/24 00:00 <Samantha Valles PA-C - Last Filed: 07/08/24 17:15> Vital Signs Temperature 98.2 F 07/07/24 22:34 Pulse Rate 128 H 07/07/24 22:34 Respiratory Rate 16 07/07/24 22:34 Blood Pressure 143/90 H 07/07/24 22:34 Pulse Oximetry 97 07/07/24 22:34 Oxygen Delivery Room Air 07/07/24 22:34 Temperature 98.2 F 07/07/24 22:34 Pulse Rate 84 07/08/24 06:08 Respiratory Rate 15 07/08/24 06:08 Blood Pressure 118/74 07/08/24 03:55 Pulse Oximetry 99 07/08/24 06:08 Oxygen Delivery Room Air 07/08/24 00:00 <Ruddy Christianson MD - Last Filed: 07/08/24 07:48> MDM - Syncope MDM Narrative Medical decision making narrative: Patient presented to ED status post syncopal episode at [facility]. Patient was initially tachycardic upon arrival. This was improved by the time of my evaluation. She is neurologically intact upon my evaluation. She did feel somewhat heavy and weak overall, but no focal deficits. CT brain and cervical spine were obtained and without acute traumatic findings. Patient also reporting recent SOB w/ exertion, BLE swelling. Hx of similar previous syncopal episodes. Orthostatic VS were evaluated, no significant change in BP, but HR did increase with position changes. Patient was given a small amount of fluids in the ED. Laboratory studies notable for white blood cell count of 10.4. H&H is stable. CMP with creatinine of 1.04. Consistent with previous records. Calcium was low on CMP at 6.7. Will replace. May be contributing to paresthesias. Albumin is within normal range. EKG is without concerning ST changes. QT is within normal range. Troponin undetectable. Mag within normal range. BNP also within normal range. UA here is clear. Urine is negative. TSH was noted to be very elevated at 12.1. Free T4 pending. Patient has history of thyroid cancer status post thyroidectomy, currently on levothyroxine. Patient reports she takes this medication religiously, has not missed any doses. This is likely contributing to patient's edema, paresthesias, symptoms. May also explain hypocalcemia. Patient does still have her parathyroids. States she was previously on a calcium regimen, but is no longer on this. Has not had her TSH checked in some time. With shortness of breath, swelling, syncope, D-dimer was obtained today and elevated at 0.61. CTA of chest was obtained and pending. Discussed w/u with patient thus far. Discussed importance of following up with PCP/neon installer for further evaluation, medication adjustment, repeat laboratory testing for hypocalcemia. I also discussed that patient taking the Lasix today may have contributed to her syncopal episode. I advised against taking prescription medications that are not prescribed to her at any time whatsoever. She has otherwise remained stable throughout ED stay. No further dizziness, lightheadedness. Feeling improved after fluids. Likely safe for discharge home with close outpatient follow-up if CTA chest negative. Patient agreeable to this. Care signed out to Dr. Christianson at shift change pending STAT RAD CT results. <Samantha Valles PA-C - Last Filed: 07/08/24 17:15> Medical Records Attestation: I reviewed the patient's medical records. <Samantha Valles PA-C - Last Filed: 07/08/24 17:15> Lab Data Attestation: I reviewed the patient's lab results. <THANH Tejeda Last Filed: 07/08/24 17:15> Result diagrams: 07/08/24 01:09 07/08/24 01:09 <Samantha Valles PA-C - Last Filed: 07/08/24 17:15> Labs: Lab Results 07/08/24 07/08/24 07/08/24 Range/Units 01:09 01:15 01:19 WBC 10.4 H (4.5-10.0) K/mm3 RBC 4.02 L (4.2-5.4) M/mm3 Hgb 13.1 (12.0-15.0) g/dL Hct 38.6 (37.0-47.0) % MCV 96.0 (80-100) fl MCH 32.6 (26-34) pg MCHC 33.9 (32-36) g/dl RDW 12.6 (11.5-14.5) % Plt Count 395 H (150-375) k/mm3 MPV 9.2 (7.4-10.4) fl Immature Gran % (Auto) 0.4 (0-0.5) % Neut % (Auto) 74.7 H (45.5-73.1) % Lymph % (Auto) 12.6 L (18.3-44.2) % [place] % (Auto) 11.1 H (2.6-8.5) % Eos % (Auto) 0.8 (0-4.4) % Baso % (Auto) 0.4 (0.2-1.2) % Lymph # (Auto) 1.31 (0.9-3.2) K/mm3 [place] # (Auto) 1.2 H (0.1-0.6) K/mm3 Eos # (Auto) 0.1 (0-0.3) K/mm3 Baso # (Auto) 0.0 (0.0-0.1) K/mm3 Abs Immat Gran (auto) 0.04 H (0.00-0.031) K/mm3 Absolute Neuts (auto) 7.8 H (1.3-6.7) K/mm3 Absolute Nucleated RBC 0.000 (0.0-0.012) K/mm3 Nucleated RBC % 0.0 (0.0-0.2) % D-Dimer 0.61 H (<0.48) ug/mL Sodium 139 (137-145) mmol/L Potassium 3.9 (3.4-5.0) mmol/L Chloride 100 (98-107) mmol/L Carbon Dioxide 30 (22-30) mmol/L Anion Gap 9 (4-12) mmol/L BUN 7 D (7-17) mg/dL Creatinine 1.04 H (0.7-1.0) mg/dL Estim Creat Clear Calc 102 ml/min Estimated GFR > 60 (59 - ) Glucose 111 H (65-110) mg/dL Calcium 6.7 L (8.4-10.2) mg/dL Magnesium 2.0 (1.6-2.3) mg/dL Total Bilirubin 0.6 (0.2-1.3) mg/dL AST 38 H (14-36) U/L ALT 33 (6-35) U/L Alkaline Phosphatase 55 (38-126) U/L Troponin I < 0.012 (0.000-0.034) ng/mL NT-Pro-B Natriuret Pep 102 H (19.9-100) pg/mL Total Protein 7.0 (6.3-8.2) g/dL Albumin 4.2 (3.5-5.1) g/dL TSH (Reflex) 12.100 H (0.465-4.68) uIU/mL Free T4 1.63 (0.78-2.19) ng/dL Total T3 1.50 (0.97-1.69) NG/ML Urine Color Yellow (Yellow) Urine Appearance Clear (Clear) Urine pH 6.0 (5.0-9.0) Ur Specific [place] 1.006 (1.001-1.035) Urine Protein Negative (Negative) mg/dL Urine Glucose (UA) Negative (Negative) mg/dL Urine Ketones Negative (Negative) mg/dL Ur Blood (Man) Negative (Negative) Urine Nitrate Negative (Negative) Urine Bilirubin Negative (Negative) Urine Urobilinogen 0.2 (<2.0) mg/dL Leukocyte Esterase Rfl Negative (Negative) PERFECTO/UL POC Urine HCG, Qual Negative (Negative) <Samantha Valles PA-C - Last Filed: 07/08/24 17:15> Lab Results 07/08/24 07/08/24 07/08/24 Range/Units 01:09 01:15 01:19 WBC 10.4 H (4.5-10.0) K/mm3 RBC 4.02 L (4.2-5.4) M/mm3 Hgb 13.1 (12.0-15.0) g/dL Hct 38.6 (37.0-47.0) % MCV 96.0 (80-100) fl MCH 32.6 (26-34) pg MCHC 33.9 (32-36) g/dl RDW 12.6 (11.5-14.5) % Plt Count 395 H (150-375) k/mm3 MPV 9.2 (7.4-10.4) fl Immature Gran % (Auto) 0.4 (0-0.5) % Neut % (Auto) 74.7 H (45.5-73.1) % Lymph % (Auto) 12.6 L (18.3-44.2) % [place] % (Auto) 11.1 H (2.6-8.5) % Eos % (Auto) 0.8 (0-4.4) % Baso % (Auto) 0.4 (0.2-1.2) % Lymph # (Auto) 1.31 (0.9-3.2) K/mm3 [place] # (Auto) 1.2 H (0.1-0.6) K/mm3 Eos # (Auto) 0.1 (0-0.3) K/mm3 Baso # (Auto) 0.0 (0.0-0.1) K/mm3 Abs Immat Gran (auto) 0.04 H (0.00-0.031) K/mm3 Absolute Neuts (auto) 7.8 H (1.3-6.7) K/mm3 Absolute Nucleated RBC 0.000 (0.0-0.012) K/mm3 Nucleated RBC % 0.0 (0.0-0.2) % D-Dimer 0.61 H (<0.48) ug/mL Sodium 139 (137-145) mmol/L Potassium 3.9 (3.4-5.0) mmol/L Chloride 100 (98-107) mmol/L Carbon Dioxide 30 (22-30) mmol/L Anion Gap 9 (4-12) mmol/L BUN 7 D (7-17) mg/dL Creatinine 1.04 H (0.7-1.0) mg/dL Estim Creat Clear Calc 102 ml/min Estimated GFR > 60 (59 - ) Glucose 111 H (65-110) mg/dL Calcium 6.7 L (8.4-10.2) mg/dL Magnesium 2.0 (1.6-2.3) mg/dL Total Bilirubin 0.6 (0.2-1.3) mg/dL AST 38 H (14-36) U/L ALT 33 (6-35) U/L Alkaline Phosphatase 55 (38-126) U/L Troponin I < 0.012 (0.000-0.034) ng/mL NT-Pro-B Natriuret Pep 102 H (19.9-100) pg/mL Total Protein 7.0 (6.3-8.2) g/dL Albumin 4.2 (3.5-5.1) g/dL TSH (Reflex) 12.100 H (0.465-4.68) uIU/mL Free T4 1.63 (0.78-2.19) ng/dL Total T3 1.50 (0.97-1.69) NG/ML Urine Color Yellow (Yellow) Urine Appearance Clear (Clear) Urine pH 6.0 (5.0-9.0) Ur Specific [place] 1.006 (1.001-1.035) Urine Protein Negative (Negative) mg/dL Urine Glucose (UA) Negative (Negative) mg/dL Urine Ketones Negative (Negative) mg/dL Ur Blood (Man) Negative (Negative) Urine Nitrate Negative (Negative) Urine Bilirubin Negative (Negative) Urine Urobilinogen 0.2 (<2.0) mg/dL Leukocyte Esterase Rfl Negative (Negative) PERFECTO/UL POC Urine HCG, Qual Negative (Negative) <Ruddy Christianson MD - Last Filed: 07/08/24 07:48> Imaging Data Attestation: I personally reviewed and interpreted this imaging study as follows: <Samantha Valles PA-C - Last Filed: 07/08/24 17:15> Radiologist's impression: STAT RAD CT brain: No hemorrhage, hydrocephalus, mass effect, or herniation. Bones are unremarkable. STAT RAD CT cervical spine: No acute fracture or subluxation. No prevertebral soft tissue swelling. Upper lungs are unremarkable. <THANH Tejeda Last Filed: 07/08/24 17:15> ECG Data EKG #1: Attestation: I personally reviewed and interpreted this ECG as follows: <THANH Tejeda Last Filed: 07/08/24 17:15> ECG completion date: 07/07/24 <THANH Tejeda Last Filed: 07/08/24 17:15> ECG completion time: 22:40 <THANH Tejeda Last Filed: 07/08/24 17:15> EKG Interpretation: tachycardia (112), sinus rhythm and no ST changes <THANH Tejeda Last Filed: 07/08/24 17:15> Discharge Plan Discharge Clinical Impression: Syncope and collapse, TSH elevation, Hypocalcemia, Ground glass opacity present on imaging of lung <THANH Tejeda Last Filed: 07/08/24 17:15> Patient Disposition: Home <THANH Tejeda Last Filed: 07/08/24 17:15> Condition: Stable <THANH Tejeda Last Filed: 07/08/24 17:15> Instructions: Antibiotic Form, Syncope (ED), Hypocalcemia (ED) <THANH Tejeda Last Filed: 07/08/24 17:15> Additional Instructions: Take medications as prescribed. Follow-up closely with your primary care doctor for further evaluation and management of your thyroid medications. A CT scan was not concerning for blood clot to the lungs though did show ground-glass opacities. This may reflect an atypical infection. I recommend a course of oral antibiotics and follow-up with your primary care doctor. Return to the ED for new or worsening concerns. <THANH Tejeda Last Filed: 07/08/24 17:15> Patient Language: Italian <THANH Tejeda Last Filed: 07/08/24 17:15> Prescriptions: New azithromycin 250 mg tablet See Rx Instructions .ROUTE .COMPLEX Qty: 6 0RF Rx Instructions: For 250 mg dose pack: take 500 mg today (day 1), then 250 mg for 4 days (days 2-5) No Action levothyroxine 25 mcg tablet 25 mcg PO DAILY levothyroxine 200 mcg tablet 200 mcg PO DAILY olanzapine 7.5 mg tablet 7.5 mg PO QPM sertraline 100 mg tablet 100 mg PO Q24H amlodipine 10 mg tablet 10 mg PO DAILY atenolol 50 mg tablet 50 mg PO Q24H naproxen 500 mg tablet 500 mg PO Q8H hydrocodone-acetaminophen 5-325 mg tablet 1 tablet PO Q4H PRN (Reason: pain) Qty: 20 0RF <Samantha Valles PA-C - Last Filed: 07/08/24 17:15> Follow-up/Referrals: Marilyn,MD Garrett [Primary Care Provider] - 1 Week <Samantha Valles PA-C - Last Filed: 07/08/24 17:15> Time of Disposition: 05:57 <Samantha Valles PA-C - Last Filed: 07/08/24 17:15> 05:57 <Ruddy Christianson MD - Last Filed: 07/08/24 07:48>
[2024-07-08 03:17] LABS: D Dimer 0.61 ug/mL (<0.48)
[2024-07-08] MEDS: CALCIUM GLUCONATE 1,000 MG/10 ML VIAL 1000 MG IV PUSH (04:38)
[2024-07-08 05:29] LABS: Free T4 Free Thyroxine Reflex 1.63 ng/dL (0.78-2.19)
== END 2024-07-08 06:09 | disposition home or self-care (01) ==
PROVIDERS: Physician Assistant; Emergency Provider Preventive Medicine Aerospace Medicine; PCP Family Medicine
DX: R55 Syncope and collapse (principal); E83.51 Hypocalcemia; R94.6 Abnormal results of thyroid function studies; R91.8 Other nonspecific abnormal finding of lung field; I10 Essential (primary) hypertension; E89.0 Postprocedural hypothyroidism; F41.9 Anxiety disorder, unspecified; F32.A Depression, unspecified; F17.290 Nicotine dependence, other tobacco product, uncomplicated; Z85.850 Personal history of malignant neoplasm of thyroid; Z79.899 Other long term (current) drug therapy
CPT/HCPCS: 36415; 70450; 71046; 71275; 72125; 80053; 81003; 81025; 83735; 83880; 84439; 84443; 84480; 84484; 85025; 85380; 93005; 96361; 96374; 99284; J0612; J7030; Q9967

== ENCOUNTER 2024-07-11 18:17 | Emergency (ER) | payer OTHER, SELFPAY ==
--- OUTSIDE RECORDS SUMMARY | 2024-07-11 18:20 | XMS_ITS | Encounter Summary ---
Author Organization [facility] Healthcare Address [address] [place] [address] Care Team Providers Care Program Management Manager Name Role Phone Garrett Sanders MD Primary Care Provider [phone] Encounter Details Date Type Department Care Team (Late st Contact Info) Description 06/02/2024 Results Follow-Up [facility] Family Medicine at [address] [place] [address] Garrett Sanders MD [address] [place] [address] [address] [place] [address] Social History Tobacco Use Types Packs/Day Years [...] on file Legal Sex Female 5:33 AM [employer] Gender Identity Not on file Sexual Orientation Not on file documented as of this encounter Plan of Treatment Not on file documented as of this encounter Visit Diagnoses Not on filedocumented in this encounter Care Teams Program Management Manager Relationship Specialty Start Date End Date Garrett Sanders MD [address] [place] [address] [place] [id number] PCP - General Family Medicine 04/09/23 documented as of this encounter
--- OUTSIDE RECORDS SUMMARY | 2024-07-11 18:20 | XMS_ITS | Clinical Summary ---
Author Organization [facility] Address [address] [place] [address] Care Team Providers Care Network Control Operators Supervisor Name Role Phone Garrett Sanders MD Primary Care Provider [phone] Allergies Active Allergy Reactions Criticality Noted Date [...] a day 60 tablet 2 024 Active Additional Information Patient not taking.Reported on 07/10/2024 levothyroxine (SYNTHROID) 25 mcg tabletIndications :Post-surgical hypothyroidism [...] by mouth daily 100 tablet 025 Active dicyclomine (BENTYL) 20 mg [...] as needed for muscle spasms 30 tablet Active naproxen (NAPROSYN) 500 mg tablet Take 1 tablet (500 mg total) by mouth 2 (two) times a day as needed for pain 30 tablet Active ciprofloxacin (CIPRO) 500 mg tabletIndications :Chronic constipation,Coli tis Take 1 tablet (500 mg total) by mouth 2 (two) times a day for 10 days 20 tablet 025 2024 Active metroNIDAZOLE (FLAGYL) 500 mg tabletIndications :Chronic constipation,Coli tis Take 1 tablet (500 mg total) by mouth 3 (three) times a day for 10 days 30 tablet 025 2024 Active linaCLOtide (LINZESS) 145 mcg capsule Take [...] 30 tablet 1 024 2024 Discontinued(R eorder) ciprofloxacin (CIPRO) 500 mg tablet Take 1 tablet (500 mg total) by mouth every 12 (twelve) hours 10 tablet 025 2024 Discontinued(T herapy completed) OLANZapine (ZyPREXA) 7.5 mg tabletIndications :Anxiety,Moderate episode of recurrent major depressive disorder (HCC) Take 1 tablet (7.5 mg total) by mouth nightly 30 tablet 025 2024 Discontinued(R eorder) Active Problems Problem Noted Date Diagnosed Date Chronic constipation 07/10/2024 Overview (07/10/2024): Chronci. Uncontrolled with intermittent Rectal Bleeding. Already on lInzess and fiber supplements. Trial cipro/flagyl Acute pain of right knee 12/13/2023 Blepharitis of right upper eyelid 02/14/2023 Assessment & Plan (02/14/2023 2:58 PM MANGANESE WHEELER): Warm compresses every 4-6 hours for 5-10 minutes Frequent handwashing, lid massage Doxycycline po 100 mg BID x 7 days. Sunscreen use advised. Topical erythromycin ER for worsening, pain, streaking redness, worsening swelling, vision impairment Upper respiratory tract infection 02/14/2023 Assessment & Plan (02/14/2023 2:59 PM MANGANESE WHEELER): Rapid strep negative Rapid covid, flu negative [...] 5pm. Assessment & Plan (04/19/2023 12:26 PM MANGANESE WHEELER): Recommended aggressive Lifestyle modification and weight loss [...] 08/30/2021 Assessment & Plan (03/12/2023 3:27 PM MANGANESE WHEELER): Continue current levothyroxine dose. Will check thyroid function test and adjust levothyroxine dose accordingly. TSH goal lower normal Assessment & Plan (02/13/2022 2:37 PM MANGANESE WHEELER): Continue current levothyroxine dose. Will check thyroid function test and adjust levothyroxine dose accordingly. 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 Biochemical evaluation with thyroid tumor markers. We will also obtain neck ultrasound for evaluation of the neck. If above are in acceptable range, will plan follow-up on yearly basis Assessment & Plan (02/13/2022 2:38 PM MANGANESE WHEELER): No evidence of tumor recurrence on biochemical [...] Encounter for STD screening;Recorded Elsewhere: No Location: [facility] Source: EHR Chronic: N Practice ID: [id number] Billable Time: 01:15:00 PM Contraceptive management 04/23/2018 Overview (04/19/2023): Encounter for routine checking of intrauterine contraceptive device;Recorded Elsewhere: No Location: [facility] Source: EHR Chronic: N Practice ID: [id number] Billable Time: 09:45:00 AM Pelvic and perineal pain 02/27/2018 Overview (04/19/2023): Pelvic and perineal pain;Recorded Elsewhere: No Location: [facility] Source: EHR Chronic: N Practice ID: [id number] Billable Time: 11:00:00 AM Menstrual cycle disorder 05/19/2015 Overview (04/19/2023): Menometrorrhagia;Recorded Elsewhere: No Location: [facility] Source: EHR Chronic: N Practice ID: [id number] Billable Time: 10:30:00 AM Irregular menses 01/09/2015 Resolved Problems Problem Noted Date Diagnosed Date Resolved Date Abscess of left thigh 06/14/20222022 Hypoglycemia 02/13/2022 01/29/2023 Assessment & Plan (02/13/2022 2:39 PM MANGANESE WHEELER): No documented low blood sugar Advised BG monitoring with symptoms to establish correlation & inform further work up Positive FLORENCIO (antinuclear antibody) 10/14/2021 01/29/2023 Rash 09/20/2021 01/29/2023 Sore throat 09/20/2021 01/29/2023 Infectious mononucleosis without complication 09/05/19 22 01/29/2023 Leg mass, left 09/09/2018 01/29/2023 Encounters Date Type Department Care Team Description 07/10/2024 11:45 AM CDT Office Visit [facility] Medical [facility] at [address] [place] [phone] Garrett Sanders MD Chronic constipation (Primary Dx); Post-surgical hypothyroidism; Colitis 07/09/2024 Telephone [facility] at [address] [place] [phone] Garrett Sanders MD Appointment Request 07/08/2024 Telephone [facility] at [address] [place] [address] Garrett Sanders MD 3rd no show letter sent 07/08/24 06/02/2024 Results Follow-Up [facility] at [address] [place] [address] Garrett Sanders MD 05/28/2024 2:19 PM MANGANESE WHEELER - 05/28/2024 11:59 PM MANGANESE WHEELER Hospital Encounter [facility] [address] [place] [address] Chronic pain of right knee Discharge Disposition: Discharge to home or self care 05/28/2024 2:10 PM MANGANESE WHEELER Lab [facility] [address] [place] [address] Postoperative hypothyroidism 05/28/2024 Results Follow-Up [facility] at [address] [place] [address] Garrett Sanders MD 05/23/2024 Nurse Triage [facility] at [address] [place] [address] Garrett Sanders MD 05/23/2024 Nurse Triage [facility] at [address] [place] [address] Chata Sommer RN 05/22/2024 Telephone [facility] Gastroenterology at [address] [place] [address] Derrek Dangelo MD 05/12/2024 5:53 PM MANGANESE WHEELER - 05/12/2024 6:26 PM [employer]ANESE WHEELER [facility] Department [address] [place] [address] Colitis (Primary Dx) Discharge Disposition: Discharge to home or self care 05/12/2024 Nurse Triage [facility] at [address] [place] [address] Garrett Sanders MD 04/15/2024 10:25 AM MANGANESE WHEELER - 04/15/2024 12:56 PM [facility] Emergency Department [address] [place] [address] Discharge Disposition: Left without being seen from [...] often do you have a drink containing alc ohol? Monthly or less 07/10/2024 Q2: How many drinks containi ng alcohol do you have on a typical day when you are drinking? 1 or 2 07/10/2024 Q3: How often do you have si x or more drinks on one occasion? Less than monthly 07/10/2024 PHQ-2 Answer Date Recorded PHQ-2 Total Score [...] on file Legal Sex Female 5:33 AM MANGANESE WHEELER Gender Identity Not on file Sexual Orientation Not on file Obstetrics History Last Filed Vital Signs Vital Sign Reading Time Taken Comments Blood Pressure 108/75 07/10/2024 11:50 AM CDT Pulse 85 07/10/2024 11:50 AM CDT Temperature 36.8 C (98.2 F) 07/10/2024 11:50 AM CDT Respiratory Rate 18 07/10/2024 11:50 AM CDT Oxygen Saturation 97% 07/10/2024 11:50 AM CDT Inhaled Oxygen Concentration - - Weight 126.6 kg (279 lb) 07/10/2024 11:50 AM CDT Height 172.7 cm (5' 8 ) 07/10/2024 11:50 AM CDT Body Mass Index 42.42 07/10/2024 11:50 AM CDT Plan of Treatment Health Maintenance Due [...] Read Routine (OP Routine) 05/28/2024 2:35 PM MANGANESE WHEELER Chronic pain of right knee T4, FREE Routine 05/28/2024 2:15 PM MANGANESE WHEELER Postoperative hypothyroidism THYROID FUNCTION CASCADE Routine 05/28/2024 2:15 PM MANGANESE WHEELER Postoperative hypothyroidism CTA ABDOMEN PELVIS W WO CONTRAST ED 05/12/2024 5:29 PM MANGANESE WHEELER URINALYSIS AND REFLEX TO MICROSCOPIC AND CULTURE STAT 05/12/2024 5:03 PM MANGANESE WHEELER POCT HCG, URINE Routine 05/12/2024 4:59 PM MANGANESE WHEELER EGFR STAT 05/12/2024 2:20 PM MANGANESE WHEELER DIFFERENTIAL AUTO STAT 05/12/2024 2:2 0 PM MANGANESE WHEELER LIPASE STAT 05/12/2024 2:20 PM MANGANESE WHEELER COMPREHENSIVE METABOLIC PANEL STAT 05/12/2024 2:20 PM MANGANESE WHEELER CBC WITH AUTO DIFFERENTIAL STAT 05/12/2024 2:20 PM MANGANESE WHEELER XR ELBOW RIGHT 3 OR MORE VIEWS ED 04/15/2024 12:01 PM MANGANESE WHEELER XR HUMERUS RIGHT 2 OR MORE VIEWS ED 04/15/2024 11:21 AM MANGANESE WHEELER POCT HCG, URINE Routine 04/15/2024 11:04 AM MANGANESE WHEELER N. GONORRHOEAE/C. TRACHOMATIS AMPLIFICATION STAT 06/13/2022 3:09 PM CDT HEPATITIS PANEL, ACUTE STAT 02/01/2022 7:53 PM CDT from Last 3 Months or Most Recently Relevant to Health Maintenance Results * XR Knee Right 4 or More Views (05/28/2024 2:35 PM MANGANESE WHEELER) Anatomical Region Laterality Modality Lower Extremities, Knee Right Computed Radiography 06/01/2024 7:27 AM MANGANESE WHEELER Narrative 06/01/2024 7:28 AM MANGANESE WHEELER EXAM DESCRIPTION: XR KNEE RIGHT 4 OR [...] by Arik Camacho M.D. T: Report ID: [id number] Reading Location: [id number] Procedure Note Arik Camacho MD - 06/01/2024 [...] by Arik Camacho M.D. T: Report ID: [id number] Reading Location: [id number] Garrett Sanders MD IMG XR PROCEDURES Final Result * (ABNORMAL) Thyroid Function [place] (05/28/2024 2:15 PM MANGANESE WHEELER) Pathologist [facility] TSH 40.70(H) 0.30 - 4.20 mcIUnit/mL Blood 05/28/2024 2:15 PM MANGANESE WHEELER 05/28/2024 2:30 PM MANGANESE WHEELER Garrett Sanders MD LAB BLOOD ORDERABLES Final Resul t AYSE [address] [facility] Department [place] [address] * T4, free (05/28/2024 2:15 PM MANGANESE WHEELER) Free T4 1.03 0.90 - 1.70 ng/dL Blood 05/28/2024 2:15 PM MANGANESE WHEELER 05/28/2024 2:30 PM MANGANESE WHEELER Narrative AYSE CORDERO - 05/28/2024 4:15 PM MANGANESE WHEELER This test was reflexed from a TSH result. us Garrett Sanders MD LAB BLOOD ORDERABLES Final Resul t AYSE CORDERO [address] [facility] Department [place] [address] * CTA Abdomen Pelvis (05/12/2024 5:29 PM MANGANESE WHEELER) Anatomical Region Laterality Modality Body N/A Computed Tomogra phy 05/12/2024 5:33 PM MANGANESE WHEELER Narrative 05/12/2024 5:39 PM MANGANESE WHEELER EXAM DESCRIPTION: CTA ABDOMEN PELVIS REASON FOR [...] Zana Sanders D.O. PS: PS Report ID: [id number] Reading Location: [id number] Procedure Note Zana Sanders, - 05/12/2024 EXAM DESCRIPTION: CTA ABDOMEN PELVIS [...] Zana Sanders D.O. PS: PS Report ID: [id number] Reading Location: [place] [address] PROCEDURES Final Result * Urinalysis reflex to microscopic and culture Urine (05/12/2024 5:03 PM MANGANESE WHEELER) Color, ur Yellow Yellow Comment:[facility] performed [facility] [address] [place] [address], [place]., [address] Clarity, ur Clear Clear AYSE Comment:Testing performed by : [address] [address] Specific gravity, ur 1.010 1.003 - 1.030 AYSE Comment:Testing performed by : [address], [place]., [address] pH, urine 7.0 AYSE Comment: Interpretive Data U rine pH is affected by diet, medications, systemic acid-base disturbances, and renal tubular function. pH may affect urinary stone formation. For example, urine pH below 6.0 may help reduce the tendency for calcium phosphate stones and pH greater than 6.0 may reduce the tendency for uric acid stone formation. Source: [facility] InfoNow Current Interpretive Data was last revised on 2017 Testing performed by: [address] [address] Protein, ur ql Negative Negative AYSE Comment:Testing performed by : [address] [address] Glucose, ur ql Negative Negative AYSE Comment:Testing performed by : [address] [address] Ketones, ur Negative Negative AYSE Comment:Testing performed by : [address] [address] Bilirubin, ur Negative Negative AYSE Comment:Testing performed by : [address] [address] Blood, ur Negative Negative AYSE Comment:Testing performed by : [address] [address] Urobilinogen, ur <2.0 <2.0 mg/dL AYSE Comment:Testing performed by : [address] [address] Nitrite, ur Negative Negative AYSE Comment:Testing performed by : [address] [address] Leukocyte esterase, ur Negative Negative AYSE Comment:Testing performed by : [address] [address] UA reflex comment Reflex conditions for microscopic UA and culture not met. AYSE Comment:Testing performed by : [facility], [address] [place] [address]., [address] Urine 05/12/2024 5:03 PM MANGANESE WHEELER 05/12/2024 5:10 PM MANGANESE WHEELER Clifton Cain DO LAB MICROBIOLOGY - GENERAL ORDERABLES Final Result AYSE [address] [facility] Department [place] [address] * POCT hCG, urine (05/12/2024 4:59 PM MANGANESE WHEELER) HCG, ur, POC Negative Negative Lot Number [id number] QC Backgroud Clear Acceptable QC Control Line Acceptable Urine 05/12/2024 4:59 PM MANGANESE WHEELER Clifton Cain DO POINT OF CARE TEST ORDERABL ES Final Result * eGFR (05/12/2024 2:20 PM MANGANESE WHEELER) eGFR 77 >=60 mL/min/1. 73 m2 Comment: [...] was last reviewed 2021. Testing performed by: [facility], [address] [place] [address]., [address] Blood 05/12/2024 2:20 PM MANGANESE WHEELER 05/12/2024 2:28 PM MANGANESE WHEELER us Clifton Cain DO LAB BLOOD ORDERABLES Final Result AYSE [address] [facility] Department [place] [address] * (ABNORMAL) Differential, auto (05/12/2024 2:20 PM MANGANESE WHEELER) Neutrophil abs 5.4 1.5 - 6.5 K/cumm Comment:Testing performed by : [address] [address] Imm gran abs 0.0 0.0 - 0.1 K/cumm AYSE Comment:Testing performed by : [address] [address] Lymphocyte abs 2.0 0.8 - 3.3 K/cumm AYSE Comment:Testing performed by : [address] [address] Monocyte abs 1.0(H) 0.2 - 0.8 K/cumm AYSE Comment:Testing performed by : [address] [address] Eosinophil abs 0.1 0.0 - 0.5 K/cumm AYSE Comment:Testing performed by : [address] [address] Basophil abs 0.1 0.0 - 0.1 K/cumm AYSE Comment:Testing performed by : [address] [address] Neutrophil pct 62.9 % AYSE Comment: Interpretive Data Percent cell count reference ranges are not reported, since discordance with absolute values may lead to misinterpretation of CBC data. Current Interpretive Data was last revised on 2017. Testing performed by: [address] [address] Imm gran pct 0.2 % AYSE Comment: Interpretive Data Percent cell count reference ranges are not reported, since discordance with absolute values may lead to misinterpretation of CBC data. Current Interpretive Data was last revised on 2017. Testing performed by: [address] [address] Lymphocyte pct 23.4 % [facility] Comment: Interpretive Data Percent cell count reference ranges are not reported, since discordance with absolute values may lead to misinterpretation of CBC data. Current Interpretive Data was last revised on 2017. Testing performed by: [address] [address] Monocyte pct 11.3 % [facility] Comment: Interpretive Data Percent cell count reference ranges are not reported, since discordance with absolute values may lead to misinterpretation of CBC data. Current Interpretive Data was last revised on 2017. Testing performed by: [address] [address] Eosinophil pct 1.5 % [facility] Comment: Interpretive Data Percent cell count reference ranges are not reported, since discordance with absolute values may lead to misinterpretation of CBC data. Current Interpretive Data was last revised on 2017. Testing performed by: [address] [address] Basophil pct 0.7 % [facility] Comment: Interpretive Data Percent cell count reference ranges are not reported, since discordance with absolute values may lead to misinterpretation of CBC data. Current Interpretive Data was last revised on 2017. Testing performed by: [address] [address] Blood 05/12/2024 2:20 PM MANGANESE WHEELER 05/12/2024 2:28 PM MANGANESE WHEELER us Clifton Cain DO LAB BLOOD ORDERABLES Final Result AYSE [address] [facility] Department [place] [address] * (ABNORMAL) CBC with auto differential (05/12/2024 2:20 PM MANGANESE WHEELER) [facility] WBC 8.7 3.8 - 9.9 K/cumm Comment:Testing performed by : [address] [address] Hgb 15.5 11.9 - 15.5 g/dL AYSE Comment:Testing performed by : [address], [address] Hct 45.8(H) 35.6 - 45.5 % AYSE Comment:Testing performed by : [address] [address] Plt 416(H) 150 - 400 K/cumm AYSE Comment:Testing performed by : [address] [address] MPV 10.1 9.1 - 12.3 fL AYSE Comment:Testing performed by : [address], [address] RBC 4.82 3.90 - 5.20 M/cumm AYSE Comment:Testing performed by : [address], [address] MCV 95.0 81.3 - 96.4 fL AYSE Comment:Testing performed by : [address] [address] MCH 32.2 27.1 - 33.3 pg AYSE Comment:Testing performed by : [address], [address] MCHC 33.8 32.3 - 35.7 g/dL AYSE Comment:Testing performed by : [address], [address] RDW CV 13.4 11.1 - 14.9 % AYSE Comment:Testing performed by : [address], [address] RDW SD 47.4 35.7 - 48.1 fL AYSE Comment:Testing performed by : [address], [address] NRBC abs 0.00 0.00 - 0.01 K/cumm AYSE Comment:Testing performed by : [address] [address] Blood Venous blood specimen / Unknown 05/12/2024 2:20 PM MANGANESE WHEELER 05/12/2024 2:28 PM MANGANESE WHEELER Clifton Cain DO LAB BLOOD ORDERABLES Final Result AYSE [address] [address] * Lipase (05/12/2024 2:20 PM MANGANESE WHEELER) Pathologist [facility] Lipase 24 10 - 99 Units/L Comment:Testing performed by : [address] [address] Blood Venous blood specimen / Unknown 05/12/2024 2:20 PM MANGANESE WHEELER 05/12/2024 2:28 PM MANGANESE WHEELER Clifton Cain LAB BLOOD ORDERABLES Final Result Performing Organization Address [facility] Co de Phone Number AYSE [address] [address] * Comprehensive metabolic panel (05/12/2024 2:20 PM MANGANESE WHEELER) [facility] Sodium 137 135 - 145 mmol/L Comment:Testing performed by : [address] [address] Potassium, pl 4.0 3.3 - 4.9 mmol/L AYSE Comment:Testing performed by : [address] [address] Chloride 101 97 - 110 mmol/L AYSE Comment:Testing performed by : [address] [address] CO2 23 22 - 32 mmol/L AYSE Comment:Testing performed by : [address] [address] Anion gap 13 2 - 15 mmol/L AYSE Comment:Testing performed by : [address] [address] BUN 7 6 - 25 mg/dL AYSE Comment:Testing performed by : [address] [address] Creatinine 1.05 0.60 - 1.10 mg/dL AYSE Comment:Testing performed by : [address] [address] Glucose 121 70 - 199 mg/dL AYSE [...] was last revised 2022. Testing performed by: [address] [address] Calcium 9.2 8.5 - 10.3 mg/dL AYSE Comment:Testing performed by : [address] [address] Bilirubin, total 1.0 0.1 - 1.2 mg/dL [facility] Comment:Testing performed by : [address] [address] Protein, pl 7.9 6.5 - 8.5 g/dL [facility] Comment:Testing performed by : [address] [address] Albumin 4.6 3.5 - 5.0 g/dL [facility] Comment:Testing performed by : [address] [address] Alk phos 52 40 - 130 Units/L [facility] Comment:Testing performed by : [address] [address] ALT 18 7 - 45 Units/L [facility] Comment:Testing performed by : [address] [address] AST 25 10 - 45 Units/L AYSE Comment:Testing performed by : [address] [address] Blood 05/12/2024 2:20 PM MANGANESE WHEELER 05/12/2024 2:28 PM MANGANESE WHEELER Clifton Choueg DO LAB BLOOD ORDERABLES Final Result AYSE [address] [facility] Department [place] [address] * XR Elbow Right 3+ views (04/15/2024 12:01 PM MANGANESE WHEELER) Anatomical Region Laterality Modality Upper Extremities, Elbow Right Compute d Radiography 04/15/2024 12:1 0 PM MANGANESE WHEELER Narrative 04/15/2024 12:12 PM MANGANESE WHEELER EXAM DESCRIPTION: XR ELBOW RIGHT 3 OR [...] by Ric Nixon M.D. CH: Report ID: [id number] Reading Location: [id number] Procedure Note Ric Nixon Jr., MD - [...] by Ric Nixon M.D. CH: Report ID: [id number] Reading Location: [id number] [facility] IMG XR PROCEDURES Final Result * XR Humerus Right (04/15/2024 11:21 AM MANGANESE WHEELER) Anatomical Region Laterality Modality Upper Extremities, Upper Arm Right Com puted Radiography 04/15/2024 11:4 6 AM MANGANESE WHEELER Narrative 04/15/2024 11:47 AM MANGANESE WHEELER EXAM DESCRIPTION: XR HUMERUS RIGHT 2 OR [...] Zana Sanders D.O. PS: PS Report ID: [id number] Reading Location: [id number] Procedure Note Zana Sanders, - 04/15/2024 EXAM DESCRIPTION: XR HUMERUS RIGHT [...] Zana Sanders D.O. PS: PS Report ID: [id number] Reading Location: [id number] [facility] PROCED[facility] Final Result * POCT hCG, urine (04/15/2024 11:04 AM MANGANESE WHEELER) [facility] HCG, ur, POC Negative Negative Lot Number [id number] QC Backgroud Clear Acceptable QC Control Line Acceptable Urine 04/15/2024 11:0 4 AM [facility] POINT OF CARE TEST ORDERABLES F inal Result * N. gonorrhoeae/C. trachomatis Amplification Urine (06/13/2022 3:09 PM CDT) [facility] C. trachomatis Not Detected Not Detected AYSE CORDERO Comment:Testing performed by : [facility], [address] [place] [address]., [address] N. gonorrhoeae Not Detected Not Detected AYSE CORDERO Comment: Interpretive Data Testing performed by the [facility]. This assay detects Chlamydia trachomatis and Neisseria gonorrhoeae by nucleic acid amplification testing (NAAT). This test is approved by the [facility] Food and Drug Administration and the performance characteristics have been verified by the laboratory. The performance characteristics of this test have not been evaluated in individuals less than 14 years of age. Current Interpretive Data was last revised on 2019. Testing performed by: [facility], [address] [place] [address]., [address] Urine (None) 06/13/2022 3:09 PM CDT 06/13/2022 4:09 PM CDT Maria Teresa OLIVA LAB MICROBIOLOGY - GENERAL ORDER SADIA Final Result AYSE [address] [facility] Department [place] [address] * Hepatitis panel, acute (02/01/2022 7:53 PM CDT) [facility] Hep A IgM Nonreactive Nonreactive AYSE CORDERO Comment: Interpretive Data: If Hep A IgM Ab is reported as Equivocal, a new sample should be drawn in two weeks for testing. Current interpretive data was last revised on 19. Hep B core IgM Nonreactive Nonreactive AYSE CORDERO Comment: Interpretive Data If HepB Core IgM Ab is reported as Equivocal, a new sample should be drawn in two weeks for testing. Current interpretive data was last revised on 19. Hep C Ab Nonreactive Nonreactive AYSE Comment: Interpretive Data Nonreactive: Antibodies to HCV [...] Tucker DO LAB MICROBIOLOGY - [facility]AL [facility] Final Result [facility] [address] [facility] Department of Laboratories [place], [place] [id number] from Last 3 Months or Most Recently Relevant to Health Maintenance Insurance [facility] Care Teams Network Control Operators Supervisor Relationship Specialty Start Date End Date Garrett Sanders MD [address] [place] [address] PCP - General Family Medicine 04/09/23
--- OUTSIDE RECORDS SUMMARY | 2024-07-11 18:20 | XMS_ITS | Encounter Summary ---
Author Organization [facility] Healthcare Address [address] [place] [address] Care Team Providers Care Behaviorist Name Role Phone Garrett Sanders MD Primary Care Provider [phone] Reason for Referral * Consultation (Routine) - Authorized Specialty Diagnoses / Procedures Referred By Contac t Referred To Contact Endocrinology Diagnoses Post-surgical hypothyroidism Garrett Sanders MD [address] [place] [phone] Phone: tel: fax: [facility] [address] [place] [phone] Phone: tel: fax: Referral ID Status Reason Start Date Expiration Date Visits Requested Visits Authorized [id number] Authorized Specialty Services Required 07/10/2024 08/09/2025 1 1 Question Answer Please select the performing region: [facility] [[id number]] Please select the performing department: 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 Monthly or less 07/10/2024 11:54 AM Oj Ceron MA Q2: How many drinks containing alcohol do you have on a typical day when you are drinking? 1 or 2 07/10/2024 11:54 AM Oj Ceron MA Q3: How often do you have six or more drinks on one occasion? Less than monthly 07/10/2024 11:54 AM Oj Ceron MA documented as of this encounter Ordered Prescriptions Prescription Sig Dispense Quantity Refills Last Filled Start Date End Date metroNIDAZOLE (FLAGYL) 500 mg tabletIndications: Chronic constipation,Colit is Take 1 tablet (500 mg total) by mouth 3 (three) times a day for 10 days 30 tablet 07/10/2024 07/20/2024 ciprofloxacin (CIPRO) 500 mg tabletIndications: Chronic constipation,Colit is Take 1 tablet (500 mg total) by mouth 2 (two) times a day for 10 days 20 tablet 07/10/2024 07/20/2024 documented in this encounter Progress Notes * Garrett Sanders MD - 07/10/2024 11:45 AM CDT Images from the original note were not included. Visit date: 07/10/2024 Patient ID: Mervat Caldera is a 23 y.o. female. Chief Complaint. Chief Complaint Patient presents with ER 05/12/24 MHE <9>Colitis HPI. Patient is a 23 y.o. female HPI Elevated TSH and Low Calcium per ER visit. Patient had history of thyroidectomy 2019 for papillary Thyroid cancer. S/p Complete thyroidectomy and multiple lyphnodes. Past Medical History: Diagnosis Date Abscess of left thigh 06/14/2022 Anxiety Cancer (HCC) Depression HSV (herpes simplex virus) infection Hypertension Hypothyroidism Manic-depression (HCC) Menstrual problem Positive FLORENCIO (antinuclear antibody) 10/14/2021 Thyroid cancer (HCC) Past Surgical History: Procedure Laterality Date TOTAL THYROIDECTOMY Allergies Allergen Reactions Amoxicillin Hives Latex Rash Added based on information entered during case entry, please review and add reactions, type, and severity as needed Added based on information entered during case entry, please review and add reactions, type, and severity as needed Social History Tobacco Use Smoking status: Former Current packs/day: 0.00 Types: Cigarettes, Vaping Quit date: 07/2021 Years since quittin.9 Smokeless tobacco: Never Substance and Sexual Activity Drug use: Yes Types: Marijuana, Tobacco Sexual activity: Yes Partners: Male control/protection: I.U.D. Alcohol Use: Not At Risk (07/10/2024) AUDIT-C Frequency of Alcohol Consumption: Monthly or less Average Number of Drinks: 1 or 2 Frequency of Binge Drinking: Less than monthly Family History Problem Relation Age of Onset Hypertension Mother Autoimmune disease Mother Rheum arthritis Mother Arthritis Mother Asthma Mother Heart disease Father Mental illness Father No Known Problems Maternal Grandmother No Known Problems Maternal Grandfather Stroke Paternal Grandmother Breast cancer Paternal Grandmother Cancer Paternal Grandmother Diabetes Paternal Grandfather Heart attack Paternal Grandfather Heart disease Paternal Grandfather Mental illness Paternal Grandfather Asthma Brother Asthma Brother Current Medications: Outpatient Encounter Medications as of 07/10/2024 Medication Sig Dispense Refill albuterol HFA (ProAir HFA) 90 mcg/actuation inhaler Inhale 2 puffs every 4 (four) hours as needed for wheezing or shortness of breath 3 each 4 amLODIPine (NORVASC) 10 mg tablet TAKE 1 TABLET(10 MG) BY MOUTH DAILY 100 tablet 1 atenoloL (TENORMIN) 50 mg tablet TAKE 1 TABLET(50 MG) BY MOUTH DAILY 100 tablet 1 cyclobenzaprine (FLEXERIL) 10 mg tablet Take 1 tablet (10 mg total) by mouth 2 (two) times a day asneeded for muscle spasms 30 tablet 0 dicyclomine (BENTYL) 20 mg tablet Take 1 tablet (20 mg total) by mouth every 6 (six) hours 20 tablet 0 hydrocortisone 2.5 % cream APPLY TOPICALLY TO THE AFFECTED AREA TWICE DAILY 30 g 0 levonorgestreL (Mirena) IUD Mirena 20 mcg/24 hours (8 yrs) 52 mg intrauterine device Take by intrauterine route. levothyroxine (SYNTHROID) 200 mcg tablet TAKE 1 TABLET(200 MCG) BY MOUTH DAILY 90 tablet 0 levothyroxine (SYNTHROID) 25 mcg tablet TAKE 1 TABLET(25 MCG) BY MOUTH DAILY 90 tablet 0 lidocaine (LIDODERM) 5 % Place 1 patch on the skin daily for 5 days Remove & discard patch within 12 hours or as directed by MD. 5 patch 0 Linzess 145 mcg capsule TAKE 1 CAPSULE(145 MCG) BY MOUTH DAILY 30 capsule 2 naproxen (NAPROSYN) 500 mg tablet Take 1 tablet (500 mg total) by mouth 2 (two) times a day as needed for pain 30 tablet 0 OLANZapine (ZyPREXA) 7.5 mg tablet Take 1 tablet (7.5 mg total) by mouth nightly 30 tablet 0 ondansetron ODT (ZOFRAN-ODT) 4 mg disintegrating tablet DISSOLVE 1 TABLET(4 MG) ON THE TONGUE EVERY8 HOURS NEEDED FOR NAUSEA OR VOMITING [address] (PROTONIX) 40 mg EC tablet Take 1 tablet (40 mg total) by mouth nightly 90 tablet 3 sertraline (ZOLOFT) 100 mg tablet Take 1 tablet (100 mg total) by mouth daily 100 tablet 0 traMADoL (ULTRAM) 50 mg tablet Take 1 tablet (50 mg total) by mouth every 8 (eight) hours as neededfor pain 90 tablet 2 triamcinolone (KENALOG) 0.1 % ointment Apply topically 2 (two) times a day as needed for rash Do not use on face or groin 454 g 3 valACYclovir (VALTREX) 1 gram tablet Take 2 tabs (2000 mg) 2 times a days for 1 day. 4 tablet 5 ciprofloxacin (CIPRO) 500 mg tablet Take 1 tablet (500 mg total) by mouth 2 (two) times a day for 10 days [address] (VOLTAREN) 75 mg EC tablet Take 1 tablet (75 mg total) by mouth 2 (two) times a day (Patient not taking: Reported on 07/10/2024) 60 tablet 2 metroNIDAZOLE (FLAGYL) 500 mg tablet Take 1 tablet (500 mg total) by mouth 3 (three) times a day for 10 days 30 tablet 0 [DISCONTINUED] ciprofloxacin (CIPRO) 500 mg tablet Take 1 tablet (500 mg total) by mouth every 12 (twelve) hours (Patient not taking: Reported on 07/10/2024) 10 tablet 0 No facility-administered encounter medications on file as of 07/10/2024. Review of Systems: Review of Systems Constitutional: Negative for fatigue, fever and unexpected weight change. Respiratory: Negative for cough and shortness of breath. Cardiovascular: Negative for chest pain and palpitations. Gastrointestinal: Negative for abdominal pain. Endocrine: Negative for cold intolerance and heat intolerance. Skin: Negative for rash. Neurological: Negative for headaches. Psychiatric/Behavioral: Negative for agitation, behavioral problems and confusion. BP 108/75 (BP Location: Left arm, Patient Position: Sitting) Pulse 85 Temp 36.8 ??C (98.2 ??F) (Temporal) Resp 18 Ht 172.7 cm (5' 8 ) Wt 126.6 kg (279 lb) SpO2 97% BMI 42.42 kg/m?? Physical Exam: Physical Exam Vitals and nursing note reviewed. Constitutional: General: She is not in acute distress. Appearance: She is well-developed. She is not diaphoretic. HENT: Head: Normocephalic and atraumatic. Eyes: Pupils: Pupils are equal, round, and reactive to light. Cardiovascular: Rate and Rhythm: Normal rate and regular rhythm. Heart sounds: Normal heart sounds. Pulmonary: Effort: Pulmonary effort is normal. Breath sounds: Normal breath sounds. Musculoskeletal: Cervical back: Normal range of motion and neck supple. Neurological: Mental Status: She is alert and oriented to person, place, and time. Psychiatric: Behavior: Behavior normal. Thought Content: Thought content normal. Judgment: Judgment normal. Assessment & Plan: Diagnoses and all orders for this visit: Chronic constipation (Primary) Comments: Chronci. Uncontrolled with intermittent Rectal Bleeding. Already on lInzess and fiber supplements. Trial cipro/flagyl Orders: - ciprofloxacin (CIPRO) 500 mg tablet; Take 1 tablet (500 mg total) by mouth 2 (two) times a day for 10 days - metroNIDAZOLE (FLAGYL) 500 mg tablet; Take 1 tablet (500 mg total) by mouth 3 (three) times a dayfor 10 days Post-surgical hypothyroidism - Ambulatory referral to Endocrinology; Future Colitis - ciprofloxacin (CIPRO) 500 mg tablet; Take 1 tablet (500 mg total) by mouth 2 (two) times a day for 10 days - metroNIDAZOLE (FLAGYL) 500 mg tablet; Take 1 tablet (500 mg total) by mouth 3 (three) times a dayfor 10 days Body mass index is 42.42 kg/m??. BMI Plan: Nutrition/Activities/Behavioral Counseling. Education Provided. Garrett Sanders MD documented in this encounter Plan of Treatment Scheduled Referrals Name Type Priority Associated Diagnoses Orde r Schedule Ambulatory referral to Endocrinology Outpatient Referral Routine Post-surgical hypothyroidism 1 Occurrences starting 07/10/2024 until 01/09/2025 documented as of this encounter Visit Diagnoses Diagnosis Chronic constipation- Primary Unspecified constipation Post-surgical hypothyroidism Postsurgical hypothyroidism Colitis Other and unspecified noninfectious gastroenteritis and colitis documented in this encounter Discontinued Medications Medication Sig Discontinue Reason Start Date End Da te ciprofloxacin (CIPRO) 500 mg tablet Take 1 tablet (500 mg total) by mouth every 12 (twelve) hours Therapy completed 05/12/2024 07/10/2024 documented as of this encounter Care Teams Behaviorist Relationship Specialty Start Date End Date Garrett Sanders MD [address] [facility] [address] [place] [id number] PCP - General Family Medicine 04/09/23 documented as of this encounter
--- OUTSIDE RECORDS SUMMARY | 2024-07-11 18:20 | XMS_ITS | Clinical Summary ---
Author Organization [facility] Address [address] [address] Care Team Providers Care Product Trainer Name Role Phone Berkley De La Paz MD Primary Care Provider [phone] Berkley De La Paz MD Unavailable [phone] [facility],non-owned Affiliates and Associated Physician Practices is amultiple site organization consisting of ambulatory clinics and hospital sitesin [place], [place], [place] and [place]. This disclosure is being madepursuant to the Care Everywhere program and may not contain all information available regarding this patient. Last updated 17.[facility] Allergies Active Allergy Reactions Criticality Noted [...] age to complete this topic Care Teams Product Trainer Relationship Specialty Start Date End Date Berkley De La Paz MD [address] [place] [address] PCP - General 04/11/18 Berkley De La Paz MD [address] [phone] Pediatrics 04/11/18
--- OUTSIDE RECORDS SUMMARY | 2024-07-11 18:20 | XMS_ITS | Encounter Summary ---
Author Organization [facility] Healthcare Address [address] [place] [address] Care Team Providers Care Commissioning Manager Name Role Phone Garrett Sanders MD Primary Care Provider [phone] Reason for Visit * Reason Onset Date Comments Appointment Request 07/09/2024 Encounter Details Date Type Department Care Team (Late st Contact Info) Description 07/09/2024 Telephone [facility] Family Medicine at [address] [phone] Garrett Sanders MD [address] [place] [phone] Appointment Request Social History Tobacco Use Types Packs/Day Years [...] on file 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 Visit Type: Other ED follow-up What is the reason for the visit? ED follow-up What is the reason we were unable to schedule the appointment? Current appointment availability didnot meet patient's need. Preferably within 3 days from ED visit If applicable, were all members of the patient's PCP care team offered (e.g., nurse practioner(s), physician industrial hire sales assistant(s)) ? N/A Additional Comments: Patient was taken by ambulance to [place] ED as she had convulsions at [facility]. She has a history of parathyroid cancer. No appropriate ED follow-up appointment availability. Does message need to be routed? Yes-Action Needed documented in this encounter Plan of Treatment Not on file documented as of this encounter Visit Diagnoses Not on filedocumented in this encounter Care Teams Commissioning Manager Relationship Specialty Start Date End Date Garrett Sanders MD [address] [facility] [address] [address] PCP - General Family Medicine 04/09/23 documented as of this encounter
--- OUTSIDE RECORDS SUMMARY | 2024-07-11 18:20 | XMS_ITS | Referral Summary ---
Author Organization [facility] Address [address] [place] [address] Care Team Providers Care Hydraulic [employer]er [employer] Name Role Phone Garrett Sanders MD Primary Care Provider [phone] Encounters Date Type Department Care Team Description 07/10/2024 11:45 AM CDT Office Visit [facility] Medical Group Family Medicine at [address] [place] [address] Garrett Sanders MD Chronic constipation (Primary Dx); Post-surgical hypothyroidism; Colitis 07/09/2024 Telephone [facility] Medical Group Family Medicine at [address] [place] [address] Garrett Sanders MD Appointment Request 07/08/2024 Telephone [facility] Medical [facility] Family Medicine at [address] [place] [address] Garrett Sanders MD 3rd no show letter sent 07/08/24 06/02/2024 Results Follow-Up [facility] Medical [facility] Family Medicine at [address] [place] [address] Garrett Sanders MD 05/28/2024 Results Follow-Up [facility] Medical [facility] Family Medicine at [address] [place] [address] Garrett Sanders MD 05/28/2024 2:19 PM SUPERVISING APPRAISER - 05/28/2024 11:59 PM SUPERVISING APPRAISER Hospital Encounter [facility] Diagnostic Imaging [address] [place] [address] Chronic pain of right knee Discharge Disposition: Discharge to home or self care 05/28/2024 2:10 PM [facility] Lab [facility] Lab [address] [place] [address] Postoperative hypothyroidism 05/23/2024 Nurse Triage [facility] Family Medicine at [address] [place] [address] Garrett Sanders MD 05/23/2024 Nurse Triage [facility] Medicine at [address] [place] [address] Chata Sommer RN 05/22/2024 Telephone [facility] Gastroenterology at [address] [place] [address] Derrek Dangelo MD 05/12/2024 5:53 PM [facility] - 05/12/2024 6:26 PM [facility] Emergency [facility] Emergency Department [address] [place] [address] Colitis (Primary Dx) Discharge Disposition: Discharge to home or self care 05/12/2024 Nurse Triage [facility] Family Medicine at [address] [place] [address] Garrett Sanders MD 04/15/2024 10:25 AM SUPERVISING APPRAISER - 04/15/2024 12:56 PM [facility] Emergency [facility] Emergency Department [address] [place] [address] Discharge Disposition: Left without being seen from [...] mg total) by mouth daily 100 tablet Active dicyclomine (BENTYL) 20 mg tablet Take 1 tablet (20 mg total) by mouth every 6 (six) hours 20 tablet Active ondansetron ODT (ZOFRAN-ODT) 4 mg disintegrating tabletIndications :Nausea DISSOLVE 1 TABLET(4 MG) ON THE TONGUE EVERY 8 HOURS NEEDED FOR NAUSEA OR VOMITING 20 tablet 1 Active hydrocortisone 2.5 % cream APPLY TOPICALLY TO THE AFFECTED AREA TWICE DAILY 30 g Active Linzess 145 mcg capsule TAKE 1 CAPSULE(145 MCG) BY MOUTH DAILY 30 capsule 2 Active OLANZapine (ZyPREXA) 7.5 mg tabletIndications :Anxiety,Moderate [...] 02/14/2023 Assessment & Plan (02/14/2023 2:58 PM SUPERVISING APPRAISER): Warm compresses every 4-6 hours for 5-10 minutes Frequent handwashing, lid massage Doxycycline po 100 mg BID x 7 days. Sunscreen use advised. Topical erythromycin ER for worsening, pain, streaking redness, worsening swelling, vision impairment Upper respiratory tract infection 02/14/2023 Assessment & Plan (02/14/2023 2:59 PM SUPERVISING APPRAISER): Rapid strep negative Rapid covid, flu negative [...] 5pm. Assessment & Plan (04/19/2023 12:26 PM SUPERVISING APPRAISER): Recommended aggressive Lifestyle modification and weight loss [...] 08/30/2021 Assessment & Plan (03/12/2023 3:27 PM SUPERVISING APPRAISER): Continue current levothyroxine dose. Will check thyroid function test and adjust levothyroxine dose accordingly. TSH goal lower normal Assessment & Plan (02/13/2022 2:37 PM SUPERVISING APPRAISER): Continue current levothyroxine dose. Will check thyroid function test and adjust levothyroxine dose accordingly. 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 Biochemical evaluation with thyroid tumor markers. We will also obtain neck ultrasound for evaluation of the neck. If above are in acceptable range, will plan follow-up on yearly basis Assessment & Plan (02/13/2022 2:38 PM SUPERVISING APPRAISER): No evidence of tumor recurrence on biochemical [...] Encounter for STD screening;Recorded Elsewhere: No Location: [facility] Source: EHR Chronic: N Practice ID: [id number] Billable Time: 01:15:00 PM Contraceptive management 04/23/2018 Overview (04/19/2023): Encounter for routine checking of intrauterine contraceptive device;Recorded Elsewhere: No Location: [facility] Source: EHR Chronic: N Practice ID: [id number] Billable Time: 09:45:00 AM Pelvic and perineal pain 02/27/2018 Overview (04/19/2023): Pelvic and perineal pain;Recorded Elsewhere: No Location: [facility] Source: EHR Chronic: N Practice ID: [id number] Billable Time: 11:00:00 AM Menstrual cycle disorder 05/19/2015 Overview (04/19/2023): Menometrorrhagia;Recorded Elsewhere: No Location: [facility] Source: EHR Chronic: N Practice ID: [id number] Billable Time: 10:30:00 AM Irregular menses 01/09/2015 Resolved Problems Problem Noted Date Diagnosed Date Resolved Date Abscess of left thigh 06/14/20222022 Hypoglycemia 02/13/2022 01/29/2023 Assessment & Plan (02/13/2022 2:39 PM SUPERVISING APPRAISER): No documented low blood sugar Advised BG [...] on file Legal Sex Female 5:33 AM SUPERVISING APPRAISER Gender Identity Not on file Sexual Orientation [...] 07/10/2024 11:50 AM CDT Plan of Treatment Not on file Procedures Procedure Name Priority Date/Time Associated Diagnosis Comments XR KNEE RIGHT 4 OR MORE VIEWS Schedule Routine, Read Routine (OP Routine) 05/28/2024 2:35 PM SUPERVISING APPRAISER Chronic pain of right knee T4, FREE Routine 05/28/2024 2:15 PM SUPERVISING APPRAISER Postoperative hypothyroidism THYROID FUNCTION CASCADE Routine 05/28/2024 2:15 PM SUPERVISING APPRAISER Postoperative hypothyroidism CTA ABDOMEN PELVIS W WO CONTRAST ED 05/12/2024 5:29 PM SUPERVISING APPRAISER URINALYSIS AND REFLEX TO MICROSCOPIC AND CULTURE STAT 05/12/2024 5:03 PM SUPERVISING APPRAISER POCT HCG, URINE Routine 05/12/2024 4:59 PM SUPERVISING APPRAISER EGFR STAT 05/12/2024 2:20 PM SUPERVISING APPRAISER DIFFERENTIAL AUTO STAT 05/12/2024 2:2 0 PM SUPERVISING APPRAISER LIPASE STAT 05/12/2024 2:20 PM SUPERVISING APPRAISER COMPREHENSIVE METABOLIC PANEL STAT 05/12/2024 2:20 PM SUPERVISING APPRAISER CBC WITH AUTO DIFFERENTIAL STAT 05/12/2024 2:20 PM SUPERVISING APPRAISER XR ELBOW RIGHT 3 OR MORE VIEWS ED 04/15/2024 12:01 PM SUPERVISING APPRAISER XR HUMERUS RIGHT 2 OR MORE VIEWS ED 04/15/2024 11:21 AM SUPERVISING APPRAISER POCT HCG, URINE Routine 04/15/2024 11:04 AM SUPERVISING APPRAISER N. GONORRHOEAE/C. TRACHOMATIS AMPLIFICATION STAT 06/13/2022 3:09 PM CDT HEPATITIS PANEL, ACUTE STAT 02/01/2022 7:53 PM CDT from Last 3 Months or Most Recently Relevant to Health Maintenance Results * XR Knee Right 4 or More Views (05/28/2024 2:35 PM SUPERVISING APPRAISER) Anatomical Region Laterality Modality Lower Extremities, Knee Right Computed Radiography 06/01/2024 7:27 AM SUPERVISING APPRAISER Narrative 06/01/2024 7:28 AM SUPERVISING APPRAISER EXAM DESCRIPTION: XR KNEE RIGHT 4 OR [...] by Arik Camacho M.D. T: Report ID: [id number] Reading Location: [id number] Procedure Note Arik Camacho MD - 06/01/2024 [...] by Arik Camacho M.D. T: Report ID: [id number] Reading Location: [place] [address] Garrett Sanders MD IMG XR PROCEDURES Final Result * (ABNORMAL) Thyroid Function Quay (05/28/2024 2:15 PM SUPERVISING APPRAISER) Pathologist [facility] TSH 40.70(H) 0.30 - 4.20 mcIUnit/mL Blood 05/28/2024 2:15 PM SUPERVISING APPRAISER 05/28/2024 2:30 PM SUPERVISING APPRAISER Garrett Sanders MD LAB BLOOD ORDERABLES Final Resul t AYSE [address] [facility] [place] [address] * T4, free (05/28/2024 2:15 PM SUPERVISING APPRAISER) Free T4 1.03 0.90 - 1.70 ng/dL Blood 05/28/2024 2:15 PM SUPERVISING APPRAISER 05/28/2024 2:30 PM SUPERVISING APPRAISER Narrative AYSE CORDERO - 05/28/2024 4:15 PM SUPERVISING APPRAISER This test was reflexed from a TSH result. us Garrett Sanders MD LAB BLOOD ORDERABLES Final Resul t AYSE [address] [facility] Department [place] [address] * CTA Abdomen Pelvis (05/12/2024 5:29 PM SUPERVISING APPRAISER) Anatomical Region Laterality Modality Body N/A Computed Tomogra phy 05/12/2024 5:33 PM SUPERVISING APPRAISER Narrative 05/12/2024 5:39 PM SUPERVISING APPRAISER EXAM DESCRIPTION: CTA ABDOMEN PELVIS REASON FOR [...] Zana Sanders D.O. PS: PS Report ID: [id number] Reading Location: [id number] Procedure Note Zana Sanders, DO - 05/12/2024 [...] Zana Sanders D.O. PS: PS Report ID: [id number] Reading Location: [place] [address] PROCEDURES Final Result * Urinalysis reflex to microscopic and culture Urine (05/12/2024 5:03 PM SUPERVISING APPRAISER) Color, ur Yellow Yellow Comment:Testing performed by : [facility], [address] [place] [address], [place]., [address] Clarity, ur Clear Clear AYSE Comment:Testing performed by : [address] [address] Specific gravity, ur 1.010 1.003 - 1.030 AYSE Comment:Testing performed by : [address], [place]., [address] pH, urine 7.0 AYSE Comment: Interpretive Data U rine pH is affected by diet, medications, systemic acid-base disturbances, and renal tubular function. pH may affect urinary stone formation. For example, urine pH below 6.0 may help reduce the tendency for calcium phosphate stones and pH greater than 6.0 may reduce the tendency for uric acid stone formation. Source: [facility] Current Interpretive Data was last revised on 2017 Testing performed by: [address] [address] Protein, ur ql Negative Negative AYSE Comment:Testing performed by : [address] [address] Glucose, ur ql Negative Negative AYSE Comment:Testing performed by : [address], [place]., [address] Ketones, ur Negative Negative AYSE Comment:Testing performed by : [address] [address] Bilirubin, ur Negative Negative AYSE Comment:Testing performed by : [address] [address] Blood, ur Negative Negative AYSE Comment:Testing performed by : [address] [address] Urobilinogen, ur <2.0 <2.0 mg/dL AYSE Comment:Testing performed by : [address] [address] Nitrite, ur Negative Negative AYSE Comment:Testing performed by : [address] [address] Leukocyte esterase, ur Negative Negative AYSE Comment:Testing performed by : [address], [place]., [address] UA reflex comment Reflex conditions for microscopic UA and culture not met. AYSE Comment:Testing performed by : [address], [place]., [address] Urine 05/12/2024 5:03 PM SUPERVISING APPRAISER 05/12/2024 5:10 PM SUPERVISING APPRAISER Clifton Cain DO LAB MICROBIOLOGY - GENERAL ORDERABLES Final Result AYSE [address] [facility] Department [place] [address] * POCT hCG, urine (05/12/2024 4:59 PM SUPERVISING APPRAISER) HCG, ur, POC Negative Negative Lot Number [id number] QC Backgroud Clear Acceptable QC Control Line Acceptable Urine 05/12/2024 4:59 PM SUPERVISING APPRAISER Clifton Cain DO POINT OF CARE TEST ORDERABL ES Final Result * eGFR (05/12/2024 2:20 PM SUPERVISING APPRAISER) eGFR 77 >=60 mL/min/1. 73 m2 Comment: [...] was last reviewed 2021. Testing performed by: [facility], [address] [place] [address]., [address] Blood 05/12/2024 2:20 PM SUPERVISING APPRAISER 05/12/2024 2:28 PM SUPERVISING APPRAISER us Clifton Cain DO LAB BLOOD ORDERABLES Final Result AYSE [address] [facility] Department [place] [address] * (ABNORMAL) Differential, auto (05/12/2024 2:20 PM SUPERVISING APPRAISER) Neutrophil abs 5.4 1.5 - 6.5 K/cumm Comment:Testing performed by : [address] [address] Imm gran abs 0.0 0.0 - 0.1 K/cumm AYSE Comment:Testing performed by : [address] [address] Lymphocyte abs 2.0 0.8 - 3.3 K/cumm AYSE Comment:Testing performed by : [address] [address] Monocyte abs 1.0(H) 0.2 - 0.8 K/cumm AYSE Comment:Testing performed by : [address] [address] Eosinophil abs 0.1 0.0 - 0.5 K/cumm AYSE Comment:Testing performed by : [address] [address] Basophil abs 0.1 0.0 - 0.1 K/cumm AYSE Comment:Testing performed by : [address] [address] Neutrophil pct 62.9 % AYSE Comment: Interpretive Data Percent cell count reference ranges are not reported, since discordance with absolute values may lead to misinterpretation of CBC data. Current Interpretive Data was last revised on 2017. Testing performed by: [address] [address] Imm gran pct 0.2 % AYSE Comment: Interpretive Data Percent cell count reference ranges are not reported, since discordance with absolute values may lead to misinterpretation of CBC data. Current Interpretive Data was last revised on 2017. Testing performed by: [address] [address] Lymphocyte pct 23.4 % [facility] Comment: Interpretive Data Percent cell count reference ranges are not reported, since discordance with absolute values may lead to misinterpretation of CBC data. Current Interpretive Data was last revised on 2017. Testing performed by: [address] [address] Monocyte pct 11.3 % [facility] Comment: Interpretive Data Percent cell count reference ranges are not reported, since discordance with absolute values may lead to misinterpretation of CBC data. Current Interpretive Data was last revised on 2017. Testing performed by: [address] [address] Eosinophil pct 1.5 % [facility] Comment: Interpretive Data Percent cell count reference ranges are not reported, since discordance with absolute values may lead to misinterpretation of CBC data. Current Interpretive Data was last revised on 2017. Testing performed by: [address] [address] Basophil pct 0.7 % [facility] Comment: Interpretive Data Percent cell count reference ranges are not reported, since discordance with absolute values may lead to misinterpretation of CBC data. Current Interpretive Data was last revised on 2017. Testing performed by: [address] [address] Blood 05/12/2024 2:20 PM SUPERVISING APPRAISER 05/12/2024 2:28 PM SUPERVISING APPRAISER us Clifton Cain DO LAB BLOOD ORDERABLES Final Result AYSE [address] [facility] Department [place] [address] * (ABNORMAL) CBC with auto differential (05/12/2024 2:20 PM SUPERVISING APPRAISER) WBC 8.7 3.8 - 9.9 K/cumm Comment:Testing performed by : [address] [address] Hgb 15.5 11.9 - 15.5 g/dL AYSE Comment:Testing performed by : [address], [address] Hct 45.8(H) 35.6 - 45.5 % AYSE Comment:Testing performed by : [address] [address] Plt 416(H) 150 - 400 K/cumm AYSE Comment:Testing performed by : [address] [address] MPV 10.1 9.1 - 12.3 fL AYSE Comment:Testing performed by : [address], [address] RBC 4.82 3.90 - 5.20 M/cumm AYSE Comment:Testing performed by : [address], [address] MCV 95.0 81.3 - 96.4 fL AYSE Comment:Testing performed by : [address], [address] MCH 32.2 27.1 - 33.3 pg AYSE Comment:Testing performed by : [address], [address] MCHC 33.8 32.3 - 35.7 g/dL AYSE Comment:Testing performed by : [address], [address] RDW CV 13.4 11.1 - 14.9 % AYSE Comment:Testing performed by : [address], [address] RDW SD 47.4 35.7 - 48.1 fL AYSE Comment:Testing performed by : [address], [address] NRBC abs 0.00 0.00 - 0.01 K/cumm AYSE Comment:Testing performed by : [address], [address] Blood Venous blood specimen / Unknown 05/12/2024 2:20 PM SUPERVISING APPRAISER 05/12/2024 2:28 PM SUPERVISING APPRAISER Clifton Cain DO LAB BLOOD ORDERABLES Final Result Performing Organization Address City/[facility]/ZIP Co de Phone Number AYSE [address] [address] * Lipase (05/12/2024 2:20 PM SUPERVISING APPRAISER) Pathologist [facility] Lipase 24 10 - 99 Units/L Comment:Testing performed by : [address] [address] Blood Venous blood specimen / Unknown 05/12/2024 2:20 PM SUPERVISING APPRAISER 05/12/2024 2:28 PM SUPERVISING APPRAISER Clifton Cain LAB BLOOD ORDERABLES Final Result Performing Organization Address [facility] de Phone Number AYSE [address] [address] * Comprehensive metabolic panel (05/12/2024 2:20 PM SUPERVISING APPRAISER) [facility] Sodium 137 135 - 145 mmol/L Comment:Testing performed by : [address] [address] Potassium, pl 4.0 3.3 - 4.9 mmol/L AYSE Comment:Testing performed by : [address] [address] Chloride 101 97 - 110 mmol/L AYSE Comment:Testing performed by : [address] [address] CO2 23 22 - 32 mmol/L AYSE Comment:Testing performed by : [address] [address] Anion gap 13 2 - 15 mmol/L AYSE Comment:Testing performed by : [address] [address] BUN 7 6 - 25 mg/dL AYSE Comment:Testing performed by : [address] [address] Creatinine 1.05 0.60 - 1.10 mg/dL AYSE Comment:Testing performed by : [address] [address] Glucose 121 70 - 199 mg/dL AYSE [...] was last revised 2022. Testing performed by: [address] [address] Calcium 9.2 8.5 - 10.3 mg/dL AYSE Comment:Testing performed by : [address] [address] Bilirubin, total 1.0 0.1 - 1.2 mg/dL [facility] Comment:Testing performed by : [address] [address] Protein, pl 7.9 6.5 - 8.5 g/dL [facility] Comment:Testing performed by : [address] [address] Albumin 4.6 3.5 - 5.0 g/dL [facility] Comment:Testing performed by : [address] [address] Alk phos 52 40 - 130 Units/L [facility] Comment:Testing performed by : [address] [address] ALT 18 7 - 45 Units/L [facility] Comment:Testing performed by : [address] [address] AST 25 10 - 45 Units/L AYSE Comment:Testing performed by : [address] [address] Blood 05/12/2024 2:20 PM SUPERVISING APPRAISER 05/12/2024 2:28 PM SUPERVISING APPRAISER Clifton Yury Abbeg DO LAB BLOOD ORDERABLES Final Result AYSE [address] [facility] Department [place] [address] * XR Elbow Right 3+ views (04/15/2024 12:01 PM SUPERVISING APPRAISER) Anatomical Region Laterality Modality Upper Extremities, Elbow Right Compute d Radiography 04/15/2024 12:1 0 PM SUPERVISING APPRAISER Narrative 04/15/2024 12:12 PM SUPERVISING APPRAISER EXAM DESCRIPTION: XR ELBOW RIGHT 3 OR [...] by Ric Nixon M.D. CH: Report ID: [id number] Reading Location: [id number] Procedure Note Ric Nixon Jr., MD - [...] by Ric Nixon M.D. CH: Report ID: [id number] Reading Location: [id number] [facility] IMG XR PROCEDURES Final Result * XR Humerus Right (04/15/2024 11:21 AM SUPERVISING APPRAISER) Anatomical Region Laterality Modality Upper Extremities, Upper Arm Right Com puted Radiography 04/15/2024 11:4 6 AM SUPERVISING APPRAISER Narrative 04/15/2024 11:47 AM SUPERVISING APPRAISER EXAM DESCRIPTION: XR HUMERUS RIGHT 2 OR [...] Zana Sanders D.O. PS: PS Report ID: [id number] Reading Location: [id number] Procedure Note Zana Sanders DO - 04/15/2024 [...] Zana Sanders D.O. PS: PS Report ID: [id number] Reading Location: [id number] [facility] IMG XR PROCEDURES Final Result * POCT hCG, urine (04/15/2024 11:04 AM SUPERVISING APPRAISER) HCG, ur, POC Negative Negative Lot Number [id number] QC Backgroud Clear Acceptable QC Control Line Acceptable Urine 04/15/2024 11:0 4 AM SUPERVISING APPRAISER [facility] POINT OF CARE TEST ORDERABLES F inal Result * N. gonorrhoeae/C. trachomatis Amplification Urine (06/13/2022 3:09 PM CDT) [facility] C. trachomatis Not Detected Not Detected AYSE CORDERO Comment:Testing performed by : [facility], [address] [place] [address]., [address] N. gonorrhoeae Not Detected Not Detected AYSE CORDERO Comment: Interpretive Data Testing performed by the [facility]. This assay detects Chlamydia trachomatis [...] last revised on 2019. Testing performed by: [facility], [address] [place] [address]., [address] Urine (None) 06/13/2022 3:09 PM CDT 06/13/2022 4:09 PM CDT Maria Teresa OLIVA LAB MICROBIOLOGY - GENERAL ORDER SADIA Final Result AYSE [address] [facility] [place] [address] * Hepatitis panel, acute (02/01/2022 7:53 PM CDT) [facility] Hep A IgM Nonreactive Nonreactive AYSE CORDERO [...] GENERAL ORDE RUTH Final Result AYSE [address] [facility] [place] [address] from Last 3 Months or Most Recently Relevant to Health Maintenance Insurance [facility] [place] [address] Care Teams Hydraulic [employer]er [employer] Relationship Specialty Start Date End Date Garrett Sanders MD [address] [facility] [place] [address] PCP - General Family Medicine 04/09/23
--- OUTSIDE RECORDS SUMMARY | 2024-07-11 18:20 | XMS_ITS | Clinical Summary ---
Author Organization [facility] Address [address] [place] [address] Phone Care Team Providers Care Community Relations Police Lieutenant Name Role Phone Giancarlo Yeh MD Primary Care Provider [phone] Allergies Active Allergy Reactions Criticality Noted Date [...] on file Legal Sex Female 3:42 PM BUSINESS ANALYST CONSULTANT Gender Identity Not on file Sexual Orientation [...] 12/30/2002, 05/08/2001, 03/12/2001, Additional history exists Insurance [facility] [employer] Advance Directives For more information, please contact: [phone] * Default Full Code - Needs Discussion (Latest Code Status on File) Date Activated Date Inactivated Comments 09/04/2021 8:56 AM 09/04/2021 2:27 PM * Full Code Date Activated Date Inactivated Comments 05/13/2018 1:26 PM 05/14/2018 11:46 AM Care Teams Community Relations Police Lieutenant Relationship Specialty Start Date End Date Giancarlo Yeh MD PCP - General Family Practice 09/03/21
--- OUTSIDE RECORDS SUMMARY | 2024-07-11 18:20 | XMS_ITS | Encounter Summary ---
Author Organization [facility] Healthcare Address [address] [place] [address] Care Team Providers Care Cellar Pumper Name Role Phone Samantha Olsen Primary Care Provider Fatuma Theodore NP Primary Care Provider [phone] Garrett Sanders MD Primary Care Provider [phone] Encounter Details Date Type Department Care Team (Late st Contact Info) Description 01/10/2022 Telephone [facility] OP Physical Therapy [address] [place] [id number] Rosalva Hurley, PT Social History Tobacco [...] on file Legal Sex Female 5:33 AM MD OPHTHALMOLOGIST Gender Identity Not on file Sexual Orientation Not on file documented as of this encounter Plan of Treatment Not on file documented as of this encounter Visit Diagnoses Not on filedocumented in this encounter Additional Health Concerns Infection Onset Date Last Indicated Resolved Time COVID: Suspected 02/14/2023 02/14/2023 02/14/2023 2:34 PM MD OPHTHALMOLOGIST COVID: Suspected 04/09/2023 04/09/2023 04/09/2023 11:05 PM MD OPHTHALMOLOGIST documented as of this encounter Care Teams Cellar Pumper Relationship Specialty Start Date End Date Samantha Olsen PA PCP - General Family Medicine 12/13/21 01/28/23 Fatuma Theodore NP [address] [facility] [address] [place] [id number] PCP - General Family Medicine 01/29/23 04/08/23 Garrett Sanders MD [address] [facility] [address] [place] [id number] PCP - General Family Medicine 04/09/23 documented as of this encounter
--- OUTSIDE RECORDS SUMMARY | 2024-07-11 18:20 | XMS_ITS | Encounter Summary ---
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 EKEEPING ATTENDANT documented in this encounter Plan of Treatment Not on file documented as of this encounter Visit Diagnoses Not on filedocumented in this encounter Care Teams Gis Scientist Relationship Specialty Start Date End Date Garrett Sanders MD [address] [facility] [address] [place] [address] [place] [id number] PCP - General Family Medicine 04/09/23 documented as of this encounter
--- OUTSIDE RECORDS SUMMARY | 2024-07-11 18:20 | XMS_ITS | Clinical Summary ---
Author Organization [facility] Address [facility] [place] [address] Care Team Providers Care Freight Dispatcher Name Role Phone Tamra Moran NP Primary Care Provider [phone] Allergies Active Allergy Reactions Criticality Noted Date [...] Noted Date Diagnosed Date Papillary thyroid carcinoma ([facility]/HCC HHS/HCC) Immunizations Name Administration Dates Next [...] Sex Assigned at Female 02/16/2021 2:40 PM REWARDS CONSULTANT Legal Sex Female 6:24 PM CDT Gender Identity Female 02/16/2021 2:40 PM REWARDS CONSULTANT Sexual Orientation Straight 02/16/2021 2: 40 PM REWARDS CONSULTANT Last Filed Vital Signs Vital Sign Reading Time Taken Comments Blood Pressure 146/83 04/11/2021 1:09 PM REWARDS CONSULTANT Pulse 87 04/11/2021 1:09 PM REWARDS CONSULTANT Temperature 36.2 C (97.1 F) 04/11/2021 1:09 PM REWARDS CONSULTANT Respiratory Rate 18 04/11/2021 1:09 PM REWARDS CONSULTANT Oxygen Saturation 98% 04/11/2021 1:09 PM REWARDS CONSULTANT Inhaled Oxygen Concentration - - Weight 108.9 kg (240 lb) 04/11/2021 1:09 PM REWARDS CONSULTANT Height 175.3 cm (5' 9 ) 04/11/2021 1:09 PM REWARDS CONSULTANT Body Mass Index 35.44 04/11/2021 1:09 PM REWARDS CONSULTANT Plan of Treatment Health Maintenance Due Date [...] COVID-19 Vaccine ( season) 2023 PHQ-2 (Physician [place]) 04/02/2024 DTaP, Tdap and Td Vaccines (8 [...] VE NON-REACTI VE 01/21/2021 5:16 PM CDT [facility] 01/21/2021 3:03 PM CDT us Tamra Moran [facility] Final Result [facility] [address] [place] [address], [place] [phone] from Last 3 Months or Most Recently Relevant to Health Maintenance [place] [employer] Care Teams Freight Dispatcher Relationship Specialty Start Date End Date Tamra Moran NP [address] [place] [address] PCP - General Nurse Practitioner Family 01/14/21
--- OUTSIDE RECORDS SUMMARY | 2024-07-11 18:20 | XMS_ITS | Encounter Summary ---
Author Organization [facility] Healthcare Address [address] [place] [address] Care Team Providers Care Paid Internship Name Role Phone Samantha Olsen Primary Care Provider Fatuma Theodore NP Primary Care Provider [phone] Garrett Sanders MD Primary Care Provider [phone] Encounter Details Date Type Department Care Team (Late st Contact Info) Description 01/10/2022 Telephone [facility] OP Physical Therapy [address] [place] [phone] Rosalva Hurley, PT Social History Tobacco [...] on file Legal Sex Female 5:33 AM HACK DRIVER Gender Identity Not on file Sexual Orientation Not on file documented as of this encounter Plan of Treatment Not on file documented as of this encounter Visit Diagnoses Not on filedocumented in this encounter Additional Health Concerns Infection Onset Date Last Indicated Resolved Time COVID: Suspected 02/14/2023 02/14/2023 02/14/2023 2:34 PM HACK DRIVER COVID: Suspected 04/09/2023 04/09/2023 04/09/2023 11:05 PM HACK DRIVER documented as of this encounter Care Teams Paid Internship Relationship Specialty Start Date End Date Samantha Olsen PA PCP - General Family Medicine 12/13/21 01/28/23 Fatuma Theodore NP [address] [facility] [address] [place] [address] [place] [id number] PCP - General Family Medicine 01/29/23 04/08/23 Garrett Sanders MD [address] [facility] [address] [place] [address] [place] [id number] PCP - General Family Medicine 04/09/23 documented as of this encounter
--- OUTSIDE RECORDS SUMMARY | 2024-07-11 18:20 | XMS_ITS | Data Portability ---
Author Organization [facility] [place] Address [address] [place] [address] Assessment Encounter Date Assessment Date Assessment LastModified [...] recorded. Lab hsv-2 igg Ab, serum 2023 [facility] (Lab), [address] [place], [address], 4 02:06:20 hbcab (hepatitis B core Ab) igm, serum 2023 [facility] (Lab), [address] [place], [address], 4 02:06:20 HBsAg (hepatitis B surface Ag), serum 2023 [facility] (Lab), [address] [place], [address], 4 02:06:17 hepatitis C virus Ab, serum 2023 024 [facility] (Lab), [address], [place], [address], 4 02:06:18 HIV 1+2 AB + HIV 1 p24 Ag, qualitative immunoassay , serum 2023 024 [facility] (Lab), [address], [place], [address], 4 02:06:17 RPR (rapid plasma reagin), serum 2023 024 [facility] (Lab), [address], [place], [address], 4 02:06:20 CBC w/ auto diff 2023 024 [facility] (Lab), [address], [place], [address], 4 02:06:16 dhea-sulfat e, serum 2023 024 [facility] (Lab), [address], [place], [address], 4 02:06:17 hormone panel, serum or plasma 2023 024 [facility] (Lab), [address], [place], [address], 4 02:06:19 progesteron e, serum 2023 024 [facility] (Lab), [address], [place], [address], 4 02:06:18 prolactin, serum 2023 024 [facility] (Lab), [address], [place], [address], 4 02:06:18 shbg (sex hormone-bin ding globulin), serum 2023 024 [facility] (Lab), [address], [place], [address], 4 02:06:18 TSH, serum or plasma 2023 024 [facility] (Lab), [address], [place], [address], 4 02:06:19 testosteron e free/testos terone total, ratio, serum 2023 024 [facility] (Lab), [address], [place], [address], 4 02:06:20 urinalysis, dipstick 2022 023 [email or web address] , [address], [address], [place], [address], 3 11:45:12 Referral None recorded. Procedures None recorded. Surgeries laparoscopy , diagnostic (SURG) 2024 025 [facility], [address] [facility] [address], [place], [address], 5 14:34:35 Imaging US, pelvis [address], [address], [address], [place], [address], 4 20:23:49 US, transvagina l 2023 [address], [address], [place], [address], 4 20:23:49 Medication Orders Macrobid 100 mg capsule 2022 [facility]23 [id number], [address], [place], [id number], 4 16:18:20 Patient TargetsNo targets recorded. Patient [...] donaldson , Rose Haro cted: 10/11 1338 CLIENT ARCHITECT Order ing Locat ion: [place] Patho logy [...] as clini karli warra nted. Not Available [facility] (Lab) [address], [place], [address], 10/13/2022 19:56:22 10/12/19 23 10/11/2022 TRICH OMONA S VAGIN CUCA (RRNA ) trichomonas vaginalis ribosomal RNA (rrna) Negati ve negati ve Not Available [facility] (Lab) [address], [place], [address], 10/13/2022 19:56:23 10/12/19 23 10/11/2022 CT/GC (STEFANY) , THINP REP VIAL chlamydia trachomatis, PCR Negati ve negati ve Not Available [facility] (Lab) [address] [place], [address], 10/13/2022 19:56:24 10/12/19 23 10/11/2022 CT/GC (STEFANY) , THINP REP VIAL neisseria gonorrhoeae, PCR Negati ve negati ve Not Available [facility] (Lab) [address], [place], [address], 10/13/2022 19:56:24 10/12/19 23 10/11/2022 urina lysis , dipst ick Protein trace Not Available [place] [address], [place], [address], 10/11/2022 11:34:25 10/12/19 23 10/11/2022 urina lysis , dipst ick pH 5 Not Available [place] [address], [place], [address], 10/11/2022 11:34:25 10/12/19 23 10/11/2022 urina lysis , dipst ick Specific [place] 1.015 Not Available [facility] [address], [place], [address], 10/11/2022 11:34:25 03/12/20 24 03/12/2024 CT/GC AND TRICH OMONA S VAGIN CUCA (RRNA ), URINE chlamydia trachomatis, PCR Negati ve negati ve Not Available [facility] (Lab) [address], [place], [address], 03/13/2024 13:33:23 03/12/20 24 03/12/2024 CT/GC AND TRICH OMONA S VAGIN CUCA (RRNA ), URINE neisseria gonorrhoeae, PCR Negati ve negati ve Not Available [facility] (Lab) [address], [place], [address], 03/13/2024 13:33:23 03/12/20 24 03/12/2024 CT/GC AND TRICH OMONA S VAGIN CUCA (RRNA ), URINE trichomonas vaginalis ribosomal RNA (rrna) Negati ve negati ve Not Available [facility] (Lab) [address], [place], [address], 03/13/2024 13:33:23 03/12/20 24 03/12/2024 CBC W/DIF F WBC 10.2 10'3/ uL 3.5-10 .5 Not Available [facility] (Lab) [address], [place], [address], 03/18/2024 02:06:16 03/12/20 24 03/12/2024 CBC W/DIF F RBC 4.76 10'6/ uL (based on docume nted legal sex) 3.80-5 .20 Not Available [facility] (Lab) [address], [place], [address], 03/18/2024 02:06:16 03/12/20 24 03/12/2024 CBC W/DIF F HGB 15.1 g/dL (based on docume nted legal sex) 11.6-1 5.4 Not Available [facility] (Lab) [address], [place], [address], 03/18/2024 02:06:16 03/12/20 24 03/12/2024 CBC W/DIF F HCT 46.6 % (based on docume nted legal sex) 34.0-4 5.0 high Not Available [facility] (Lab) [address], [place], [address], 03/18/2024 02:06:16 03/12/20 24 03/12/2024 CBC W/DIF F MCV 97.9 fL 80.0-9 9.0 Not Available [facility] (Lab) [address], [place], [address], 03/18/2024 02:06:16 03/12/20 24 03/12/2024 CBC W/DIF F MCH 31.7 pg 27.0-3 4.0 Not Available [facility] (Lab) [address], [place], [address], 03/18/2024 02:06:16 03/12/20 24 03/12/2024 CBC W/DIF F MCHC 32.4 g/dL 32.0-3 5.5 Not Available [facility] (Lab) [address], [place], [address], 03/18/2024 02:06:16 03/12/20 24 03/12/2024 CBC W/DIF F RDW 12.9 % 11.0-1 5.0 Not Available [facility] (Lab) [address], [place], [address], 03/18/2024 02:06:16 03/12/20 24 03/12/2024 CBC W/DIF F plt 419 10'3/ uL 150-40 0 high Not Available [facility] (Lab) [address], [place], [address], 03/18/2024 02:06:16 03/12/20 24 03/12/2024 CBC W/DIF F MPV 10.5 fL 8.8-12 .1 Not Available [facility] (Lab) [address], [place], [address], 03/18/2024 02:06:16 03/12/20 24 03/12/2024 CBC W/DIF F NRBC's 0.0 % 0.0 Not Available [facility] (Lab) [address], [place], [address], 03/18/2024 02:06:16 03/12/20 24 03/12/2024 CBC W/DIF F absolute NRBCs 0.0 10'3/ uL no refere nce range establ ished Not Available [facility] (Lab) [address], [place], [address], 03/18/2024 02:06:16 03/12/20 24 03/12/2024 CBC W/DIF F neutrophils 62.8 % 34.0-7 3.0 Not Available [facility] (Lab) [address], [place], [address], 03/18/2024 02:06:16 03/12/20 24 03/12/2024 CBC W/DIF F lymphocytes 24.6 % 15.0-5 0.0 Not Available [facility] (Lab) [address], [place], [address], 03/18/2024 02:06:16 03/12/20 24 03/12/2024 CBC W/DIF F monocytes 9.7 % 1.0-15 .0 Not Available [facility] (Lab) [address], [place], [address], 03/18/2024 02:06:16 03/12/20 24 03/12/2024 CBC W/DIF F eosinophils 1.4 % 0.0-8. 0 Not Available [facility] (Lab) [address], [place], [address], 03/18/2024 02:06:16 03/12/20 24 03/12/2024 CBC W/DIF F basophils 1.0 % 0.0-2. 0 Not Available [facility] (Lab) [address], [place], [address], 03/18/2024 02:06:16 03/12/20 24 03/12/2024 CBC W/DIF F immature granulocytes 0.5 % no define d refere nce range Not Available [facility] (Lab) [address] [place], [address], 03/18/2024 02:06:16 03/12/20 24 03/12/2024 CBC W/DIF F absolute neutrophils 6.4 10'3/ uL 1.5-8. 0 Not Available [facility] (Lab) [address] [place], [address], 03/18/2024 02:06:16 03/12/20 24 03/12/2024 CBC W/DIF F absolute lymphocytes 2.5 10'3/ uL 1.0-4. 0 Not Available [facility] (Lab) [address], [place], [address], 03/18/2024 02:06:16 03/12/20 24 03/12/2024 CBC W/DIF F absolute monocytes 1.0 10'3/ uL 0.2-1. 0 Not Available [facility] (Lab) [address], [place], [address], 03/18/2024 02:06:16 03/12/20 24 03/12/2024 CBC W/DIF F absolute eosinophils 0.1 10'3/ uL 0.0-0. 6 Not Available [facility] (Lab) [address], [place], [address], 03/18/2024 02:06:16 03/12/20 24 03/12/2024 CBC W/DIF F absolute basophils 0.1 10'3/ uL 0.0-0. 3 Not Available [facility] (Lab) [address], [place], [address], 03/18/2024 02:06:16 03/12/20 24 03/12/2024 CBC W/DIF [...] resul ts are expec carol. Not Available [facility] (Lab) [address], [place], [address], 03/18/2024 02:06:16 03/12/20 24 03/12/2024 HEPAT ITIS B SURFA CE ANTIG EN hepatitis B surface antigen Non-re active non-re active This assay was perfo rmed using [employer] ratio n reage nts and test kits. Value s obtai cora with other assay metho ds or kits canno t be used inter daily eagayley . Not Available [facility] (Lab) [address], [place], [address], 03/18/2024 02:06:17 03/12/20 24 03/12/2024 HIV 1/2 ANTIG EN/AN TIBOD Y, REFLE X CONFI RMATI ON HIV antigen/anti body Nonrea ctive nonrea ctive HIV-1 antig en and HIV-1 /HIV- 2 antib odies were not detec carol. No labor atory evide nce of HIV infec tion. Not Available [facility] (Lab) [address], [place], [address], 03/18/2024 02:06:17 03/12/20 24 03/12/2024 DHEA SULFA TE DHEA-sulfate 144 ug/dL Femal e Range s Age(y ) Range (ug/d L) 10-15 34-28 0 15-20 65-36 8 20-25 148-4 07 25-35 99-34 0 35-45 61-33 7 45-55 35-25 6 55-65 19-20 5 65-75 9-246 > 75 12-15 4 Not Available [facility] (Lab) [address], [place], [address], 03/18/2024 02:06:17 03/12/20 24 03/12/2024 HEPAT ITIS C ANTIB ANIKET SCREE N, REFLE X TO CONFI RMATI ON hepatitis C antibody Non-re active non-re active Antib odies to HCV Not Detec carol, does not exclu de the possi bilit y of expos ure to HCV. Not Available [facility] (Lab) [address], [place], [address], 03/18/2024 02:06:18 03/12/20 24 03/12/2024 HUMAN SEX HORMO NE HANNAH NG GLOBU [place] sex hormone binding globulin 16.8 nmole s/L 18.2-1 35.5 low Not Available [facility] (Lab) [address], [place], [address], 03/18/2024 02:06:18 03/12/20 24 03/12/2024 PROLA CTIN prolactin, total 25.70 NG/mL 4.79-2 3.30 high This assay was perfo rmed using [employer] ratio n reage nts and test kits. Value s obtai cora with other assay metho ds or kits canno t be used inter [facility] . Not Available [facility] (Lab) [address] [place], [address], 03/18/2024 02:06:18 03/12/20 24 03/12/2024 PROGE STERO NE progesterone 6.69 NG/mL This assay was perfo rmed using [employer] ratio n reage nts and test kits. Value s obtai cora with other assay metho ds or kits canno t be used inter [facility] . Femal e Proge stero ne Range s: Folli cular phase 0.06- 0.89 ng/mL Ovula tion phase 0.12- 12.00 ng/mL Lutea l phase 1.83- 23.90 ng/mL Postm enopa usal <0.05 -0.13 ng/mL Healt hy Pregn ant Women 1st Trime ster 11.0- 44.30 2nd Trime ster 25.40 -83.3 0 3rd Trime ster 58.70 -214. 00 Not Available [facility] (Lab) [address] [place], [address], 03/18/2024 02:06:18 03/12/20 24 03/12/2024 FSH, LH, ESTRA DIOL estradiol 95.5 pg/mL This assay was perfo rmed using [employer] reage nts and test kits. Value s obtai cora with other assay metho ds or kits canno t be used inter [facility] . Femal e Estra diol Range s: Folli cular phase 12.4- 233 pg/mL Ovula tion phase 41.0- 398 pg/mL Lutea l phase 22.3- 341 pg/mL Postm enopa usal <5-13 8 pg/mL Healt hy Pregn ant Women 1st Trime ster 154-3 243 pg/mL 2nd Trime ster 1561- 84094 pg/mL 3rd Trime ster 8525- >3000 0 pg/mL Not Available [facility] (Lab) [address] [place], [address], 03/18/2024 02:06:19 03/12/20 24 03/12/2024 FSH, LH, [...] use: 25.8- 134.8 mIU/m L Not Available [facility] (Lab) [address], [place], [address], 03/18/2024 02:06:19 03/12/20 24 03/12/2024 FSH, LH, [...] use: 7.7-5 8.5 mIU/m L Not Available [facility] (Lab) [address] [place], [address], 03/18/2024 02:06:19 03/12/20 24 03/12/2024 T4 FREE T4, free 0.77 NG/dL 0.60-1 .40 This assay is susce ptibl e to inter feren ce from high level s of bioti n which may false ly eleva te resul ts. Gifty carreno late with clini lakisha findi ngs. Not Available [facility] (Lab) [address], [place], [address], 03/18/2024 02:06:19 03/12/20 24 03/12/2024 TSH, REFLE X FREE T4 TSH 101.21 uIU/m L 0.30-5 .33 high Not Available [facility] (Lab) [address], [place], [address], 03/18/2024 02:06:19 03/12/20 24 03/12/2024 HERPE S SIMPL EX VIRUS TYPE 2 SPECI FIC AB, IGG herpes simplex virus 2 IgG Negati ve negati ve Not Available [facility] (Lab) [address], [place], [address], 03/18/2024 02:06:20 03/12/20 24 03/12/2024 HERPE S SIMPL EX VIRUS TYPE 2 SPECI FIC AB, IGG herpes simples virus 2 IgG, quant <0.2 ai 0.0-0. 8 Not Available [facility] (Lab) [address], [place], [address], 03/18/2024 02:06:20 03/12/20 24 03/12/2024 HEPAT ITIS B CORE, IGM hepatitis B core IgM antibody Non-re active non-re active IgM anti- HBc not detec carol. Does not exclu de the possi bilit y of expos ure to or infec tion with HBV. Not Available [facility] (Lab) [address], [place], [address], 03/18/2024 02:06:20 03/12/20 24 03/12/2024 RPR SCREE N, REFLE X TITER /CONF IRMAT ION RPR screen Nonrea ctive nonrea ctive Not Available [facility] (Lab) [address] [place], [address], 03/18/2024 02:06:20 03/12/20 24 03/12/2024 TESTO STERO NE, FREE( DIALY SIS) AND TOTAL (LC/M S/MS) testosterone , total 26 NG/dL 2-45 For addit ional infor gifty oliva e refer to http: //[facility].que stdia gnost ics.c om/fa q/ Total Testo stero neLCM SMSFA Q165 (This link is being provi ded for infor matio nal/ educa diana l purpo ses only. ) This test was devel oped and its genia tical perfo rmanc e nasra cteri stics have been deter mined by [employer] ostic s [place]. It has not been clear ed or appro thu by the U.S. Food and Drug Admin istra tion. This assay has been valid ated pursu ant to the CLIA regul ation s and is used for clini lakisha purpo ses. Not Available [facility] (Lab) [address], [place], [address], 03/18/2024 02:06:20 03/12/20 24 03/12/2024 TESTO STERO NE, FREE( DIALY SIS) AND TOTAL (LC/M S/MS) testosterone , free 5.1 pg/mL 0.1-6. 4 This test was devel oped and its genia tical perfo rmanc e nasra cteri stics have been deter mined by [employer] [place]. It has not been clear ed or appro thu by the U.S. Food and Drug Admin istra tion. This assay has been valid ated pursu ant to the CLIA regul ation s and is used for clini lakisha purpo ses. Perfo rming Organ izati on [facility] dem[facility] n: Site ID: [id number] Name: [employer] [facility] [employer] annika Addre ss: [id number] [place], [place] Direc tor: Allegra Archibald MD PhD Not Available [facility] (Lab) [address], [place], [address], 03/18/2024 02:06:20 03/27/20 24 03/27/2024 PLATE LET COUNT plt 416 10'3/ uL 150-40 0 high Not Available [facility] (Lab) [address], [place], [address], 03/28/2024 05:46:43 03/27/20 24 03/27/2024 TSH TSH 81.15 uIU/m L 0.30-5 .33 high Not Available [facility] (Lab) [address], [place], [address], 03/28/2024 05:46:44 02/14/20 24 02/14/2024 US, pelvi s No observ ation record ed. [email or web address], [place], [address], 02/14/2024 18:05:32 02/14/20 24 02/14/2024 US, trans vagin al No observ ation record ed. [email or web address], [place], [address], 02/14/2024 18:05:41 02/14/20 24 02/14/2024 US, pelvi s No observ ation record ed. [email or web address] [address], [place], [address], 02/14/2024 20:20:04 Result Notes None recorded. Problems Name Problem SNOMED Code Status Onset Date Resolution Date Notes Provider Name and Address Organization Details Recorded Time Syphilis test finding 066493293 Completed 201809/22/2021 Encounter for STD screening ;Recorded Elsewhere : No Locati on: [facility] So urce: EHR Chron ic: N Practic e ID: [id number] Bill able Time: 01:15:00 PM Tanika Silver [place], [place] - [facility] 2 15:03:32 Finding of pattern of menstrua l cycle [id number] Completed 201509/22/2021 Menometro rrhagia;R ecorded Elsewhere : No Locati on: [facility] So urce: EHR Chron ic: N Practic e ID: [id number] Bill able Time: 10:30:00 AM Tanika [facility] 2 15:03:31 Pelvic and perineal pain 575537785 Completed 201709/22/2021 Pelvic and perineal pain;Raghavendra rded Elsewhere : No Locati on: [facility] So urce: EHR Chron ic: N Practic e ID: [id number] Bill able Time: 11:00:00 AM Tanika [facility] 2 15:03:31 Insertio n of intraute rine contrace ptive device Completed 201709/22/2021 Encounter for insertion of intrauter ine contracep tive device;Re corded Elsewhere : No Locati on: [facility] So urce: EHR Chron ic: N Practic e ID: [id number] Bill able Time: 01:30:00 PM Tanika [facility] [address] 15:03:[address] Concept Completed 201709/22/2021 Encntr for routine child health exam w/o abnormal findings; Recorded Elsewhere : No Locati on: [facility] So urce: EHR Chron ic: N Practic e ID: [id number] Bill able Time: 10:30:00 AM Tanika [facility]ford [facility] 2 15:03:31 Localize d swelling , mass and lump, neck Completed 201709/22/2021 Localized swelling, mass and lump, neck;Raghavendra rded Elsewhere : No Locati on: [facility] So urce: EHR Chron ic: N Practic e ID: [id number] Bill able Time: 10:30:00 AM Tanika [facility]ford [facility] 2 15:03:[address] Concept Completed 201709/22/2021 Well woman check w/o abnormal finding;R ecorded Elsewhere : No Locati on: [facility] So urce: EHR Chron ic: N Practic e ID: [id number] Bill able Time: 10:30:00 AM Tanika Silver [facility] 2 15:03:31 Contrace ptive sheath status [id number] Completed 201809/22/2021 Encounter for routine checking of intrauter ine contracep tive device;Re corded Elsewhere : No Locati on: [facility] So urce: EHR Chron ic: N Practic e ID: [id number] Bill able Time: 09:45:00 AM Tanika Silver [facility] 2 15:03:31 Problem Notes None recorded. Procedures Surgical History Date Name Laterality Status Provider Name and Address Organization Details Recorded Time 3 Date of Last Pap Smear completed Kerri Delaney [facility] 03/12/2024 16:19:24 9 Thyroid Surgery completed Purnima Wallace [facility] 03/14/2022 17:28:33 Imaging Results Imaging Date Name Status LastModified by Organization Details LastModified Time 02/14/2024 US, pelvis completed [email or web address] [place] [address], [place], [address], 02/14/2024 18:05:32 02/14/2024 [facility]inal [email or web address] [address], [place], [address], 02/14/2024 18:05:41 02/14/2024 US, pelvis completed [email or web address], [place], [address], 02/14/2024 20:20:04 Procedure Notes None recorded. Medical [...] ed Elsewher e: Yes Loca tion: [facility] odify By: marcelina hernadez DateTime : 05/20/19 [...] ed Juan C e: No Locat ion: [facility] odify By: janelle weir DateTime : 10/25/19 [...] Prescrib ed Elsewher e: No Locat ion: [facility] odify By: [email or web address] Samayoa ncounter DateTime : 11/17/19 16 04:30:01 PM Not Available Not Available Not Available Lomedia 24 Fe 1 mg-20 mcg (24)/75 mg (4) tablet TAKE 1 TABLET BY ORAL ROUTE EVERY DAY 02/27 completed Prescrib ed Elsewher e: No Locat ion: [facility] odify By: janelle Samayoa ncounter DateTime : [...] Updated DateTime 10/11/2022 175.26 cm 46.1 kg/m2 709857.8 2 g 115 mm[Hg] 75 mm[Hg] Kerri Delaney [facility] 3 11:30:12 Date Recorded Body height Body mass index (BMI) Body weight Systolic blood pressure Diastolic blood pressure Provider Name and Address Organization Details Last Updated DateTime 03/12/2024 175.26 cm 40.3 kg/m2 183991.7 2 g 132 mm[Hg] 86 mm[Hg] Kerri Rhett [facility] 4 16:17:16 Date Recorded Body height Body mass index (BMI) Body weight Systolic blood pressure Diastolic blood pressure Provider Name and Address Organization Details Last Updated DateTime 04/09/2024 175.26 cm 41.6 kg/m2 960392.0 5 g 136 mm[Hg] 86 mm[Hg] Tami Dubose [facility] 5 16:37:02 Social History Question Answer Notes LastModified by Organizat ion Details LastModified Time Tobacco Smoking Status Never Smoker Purnima boyce, [facility] 03/14/2022 17:28:01 What Is Your Level Of Alcohol Consumption? Occasional [email or web address] Information not available 03/14/2022 Are You Blind Or Do You Have Difficulty Seeing? No Information n ot available 03/14/2022 What Is Your Level Of Caffeine Consumption? Occasional [email or web address] Information not available 03/14/2022 In The 14 Days Before Symptom Onset, Have You Had Close Contact With A Laboratory-confirm ed COVID-19 While That Case Was Ill? No [email or web address] Information n ot available 03/14/2022 In The 14 Days Before Symptom Onset, Have You Had Close Contact With A Person Who Is Under Investigation For COVID-19 While That Person Was Ill? No Information not available 03/14/2022 Have You Been To An Area Known To Be High Risk For COVID-19? No [email or web address] Information not available 03/14/2022 Are You Deaf Or Do You Have Serious Difficulty Hearing? No [email or web address] Information not available 03/14/2022 What Type Of Diet Are You Following? REGULAR [email or web address] Information n ot available 03/14/2022 Have You Ever Been Counseled For Unhealthy Alcohol Use? No [email or web address] Information not available 03/14/2022 Do You Use Your Seat Belt Or Car Seat Routinely? Yes [email or web address] Information not available 03/14/2022 Do You Have Smoke And Carbon Monoxide Detectors In Your Home? Yes Information not available 03/14/2022 Do You Feel Stressed (tense, Restless, Nervous, Or Anxious, Or Unable To Sleep At Night)? [id number] [email or web address] Information not available 03/14/2022 Do You Use Any Illicit Or Recreational Drugs? No [email or web address] Information not available 03/14/2022 Do You Use Sunscreen Routinely? Yes [email or web address] Information not available 03/14/2022 Has Tobacco Cessation Counseling Been Provided? No Information not available 03/14/2022 Do You Or Have You Ever Used Any Other Forms Of Tobacco Or Nicotine? No Information not available 03/14/2022 Sex: Unknown Functional Status Question Answer Note LastModified by Organizat ion Details LastModified Time Do you have difficulty walking or climbing stairs? No [email or web address] Information not available 03/14/2022 Are you able to walk? YESWOREST [email or web address] Information not available 03/14/2022 Are you able to care for yourself? Yes [email or web address] Information not available 03/14/2022 Do you have difficulty dressing or bathing? No [id number] Information not available 03/14/2022 What is your exercise level? Occasional [email or web address] Information not available 03/14/2022 Mental Status None recorded. Family History Relationship Description Onset Age of this Age Resolved Age Notes LastModified by Organization Details LastModified Time Mother Asthma [email or web address] Not available 11/26/2019 16:58:51 Paternal Grandfather Diabetes mellitus [email or web address] Not available 11/25 16:59:00 Paternal Grandfather Hypertensive disorder [email or web address] Not available 11/25 16:59:09 Paternal Grandfather Heart disease Not available 11/25 16:59:22 Paternal Grandfather Malignant tumor of colon [email or web address] Not available 11/25 16:59:34 Maternal Grandmother Heart disease [id number] Not available 11/25 16:59:55 Maternal Grandmother Hypertensive disorder [email or web address] Not available 11/25 17:00:08 Maternal Grandfather Heart disease [email or web address] Not available 11/25 17:00:21 Father Asthma Not available 11/26/2019 17:00:34 Paternal Grandmother Malignant tumor of breast Not available 2024 16:37:55 Medical History Condition Response Allergies (Food, seasonal, environmental ) Y Other N Breast Cancer N Drug/Latex Allergies/Reactions N Blood Transfusion N Dermatologic Disorders N Lung Disease N Defects or Inherited Disease N Breast Problem N Gestational Diabetes N Hematologic disorders N Anesthesia Complications N History of STI Y Deep Vein Thrombosis N Polycystic ovary syndrome N Anxiety Disorder Y Autoimmune disease N Arthritis N Infertility N Polyps N Acid Reflux (GERD) Y History of abnormal pap N Cancer N Stroke N Varicosities N Neurologic/Epilepsy N Endometriosis N High Cholesterol Y Headaches N Fibromyalgia N Kidney Disease N Heart Problems N Kidney or Bladder Problems N Thyroid Problems Y GI Problems N Eating Disorder N Anemia [...] SNOMED-CT Code Diagnosis ICD10 Code Diagnosis Note [id number] [facility] [address] [address] 03/23/2023 13:50:24 03/27/2023 09:10:53 [id number] BRENDAN BarnardBC [facility] [address] [address] 09/22/2021 15:31:57 09/23/2021 15:52:47 Gynecologic examination 31397329 Z01.419 Take Calcium with Vitamin D 1200mg [...] Screen naRoutine Labs na Pain in pelvis 23424903 R10.2 Today we agreed to update vaginal [...] All questions answered to patient satisfacti on. [id number] Celena Jett [facility] [address] [address] 09/27/2021 16:41:33 09/27/2021 17:24:05 Pain in pelvis 32008246 R10.2 [id number] Magali Gleason [facility] [address] [address] 10/06/2021 15:30:10 10/06/2021 16:12:13 Pain in pelvis 29687783 R10.2 Reviewed US which was wnl.Her pelvic pain sx's have resolvedPo ssible cyst had ruptured prior to USMonitor for now Malaise and fatigue 2711 62774 R23.2 Voices that she is generally not [...] taken today.Offe red to drive her to [facility].S he declined.V oices that she feels [...] counseling and review of plan of care. [id number] Magali Gleason [facility] [address] [address] 11/23/2021 16:35:11 11/23/2021 17:11:18 Vaginitis 57158372 N76.0 Suspect BV & yeastWill treat for BV & yeastCall if sx's worsenIf swab was sent will be notified via portal unless otherwise indicated. Time spent in visit is a total of 15 mins with at least 50% of visit consisting of counseling and review of plan of care. [id number] Magali Gleason , [facility] [address],[place] [address] 03/14/2022 17:01:44 03/15/2022 15:51:39 Urinary symptoms 576800048 R39.9 Vaginitis 70839208 N76.0 Suspect yeastWill treat yeastCall if sx's worsenIf swab was sent will be notified via portal unless otherwise indicated. Counseling /Therapist resources given including psychology [employer] Time spent in visit is a total of 15 mins with at least 50% of visit consisting of counseling and review of plan of care. [id number] Magali Gleason , [facility] [address],[place] [address] 10/11/2022 11:18:54 10/11/2022 11:49:53 Dysuria 30004509 R30.0 Suspect UTISent cultureTre atedCounse led on medication R/B's, Most common side effects, & use. All questions were answered to patient satisfacti on. Gynecologi c examination [id number] Z01.419 Take Calcium with Vitamin D 1200mg [...] c Screen discussedC olon Screen naDexa Screen [facility] na [id number] Kate Silver [facility] [address] [address] 02/14/2024 16:57:53 02/14/2024 17:33:10 Pain in pelvis 86921518 R10.2 [id number] Cristian Ruelas MD [facility] [address] [address] 03/12/2024 15:30:34 03/13/2024 09:49:23 Pain in pelvis 85000643 R10.2 23-year-ol d female with multiple concerns. [...] hemorrhage and infection. Abnormal u terine bleeding [id number] 9100 N93.9 Sexually t ransmitted infectious disease 7563584 A64 [id number] Cristian Ruelas MD [facility] [address] [address] 04/09/2024 16:07:43 04/11/2024 14:25:38 Pain in pelvis 69963185 R10.2 this patient is a 23-year-ol d [...] Kelsey Member ID Guarantor Name 10/11/2022 1 [facility] ON OR AFTER 09/30/20 (MEDICAID REPLACEMENT - HMO) Mervat Werner [id number] Mervat E Werner 03/23/2023 1 [facility] ON OR AFTER 09/30/20 (MEDICAID REPLACEMENT - HMO) Mervat Werner [id number] Mervat E Werner 02/14/2024 1 [facility] ON OR AFTER 09/30/20 (MEDICAID REPLACEMENT - HMO) Mervat Werner [id number] Mervat E Werner 03/12/2024 1 [facility] ON OR AFTER 09/30/20 (MEDICAID REPLACEMENT - HMO) Mervat Werner [id number] Mervat E Werner 04/09/2024 1 *SELF PAY* [...] Followed with yearly pap smears Magali Gleason, [facility]- [address], [place], [address], [facility] 10/11/2022 11:48:59 03/12/2024 text/html [...] infection. Cristian Ruelas MD [address], [place], [address], [facility] 03/12/2024 19:07:15 04/09/2024 text/html 23-year-old [...] infection. Cristian Ruelas MD [address], [place], [address], [facility] 04/10/2024 22:44:59 OBGyn Episode No OBEpisode recorded.
[2024-07-11 18:29] VITALS: BP 143/100; PULSE 81; RESP 16; TEMP 36.3; O2SAT 100
--- NOTE | 2024-07-11 18:34 | ECG_ITS ---
Test Date: 2024-07-11 20:39:02 Measurements Intervals [place] Rate: 54 P: 28 TX: 170 QRS: 21 QRSD: 102 T: -9 QT: 403 QTc: 382 Interpretive Statements SINUS BRADYCARDIA LOW QRS VOLTAGE IN PRECORDIAL LEADS BORDERLINE ST-T WAVE ABNORMALITY- INFERIOR LEADS BORDERLINE ECG Compared to ECG 07/07/2024 22:40:50 HEART RATE HAS DECREASED Electronically Signed On 07-12-2024 06:41:18 CDT by Andrew Zhang D.O.
--- NOTE | 2024-07-11 18:35 | ED_ITS ---
HPI - General Adult General Chief complaint: Unspecified <Merissa Phoenix APRN - Last Filed: 07/11/24 18:37> Stated complaint: Hard to think/move , Hypocalcemia on Sunday <Merissa Phoenix APRN - Last Filed: 07/11/24 18:37> Time Seen by Provider: 07/11/24 18:30 <Merissa Phoenix APRN - Last Filed: 07/11/24 18:37> Focused HPI: Patient is a 23-year-old female who presents to the ER with complaints difficulty thinking and reports it's hard to breathe. She reports on Sunday night she was brought to this ER via EMS following possible seizure activity. Patient reports she has a history of parathyroid cancer and has had part of her thyroid and parathyroid removed. She reports her inside sales specialist told her that eventually repair thyroid may stop producing calcium, and patient is concerned that is what caused her seizure on Sunday night. Patient reports she has a hard time remembering all the events that took place since Sunday. She also endorses mild, intermittent dyspnea and increased lethargy.. GENERAL: Well-appearing, well-nourished, and in no acute distress. HEAD: Normocephalic, atraumatic. CHEST: Clear to auscultation. ?No respiratory distress. HEART: Regular rate and rhythm.? NEURO: ?Alert and oriented x3. Patient screened in triage and initial orders placed.? ?Additional care and disposition to be based upon?diagnostic testing and treatment. <Merissa Phoenix APRN - Last Filed: 07/11/24 18:37> Source: patient and family (grandmother) <Erinn Diaz MD - Last Filed: 07/12/24 23:50> Mode of arrival: ambulatory <Erinn Diaz MD - Last Filed: 07/12/24 23:50> Limitations: no limitations <Erinn Diaz MD - Last Filed: 07/12/24 23:50> History of Present Illness HPI narrative: Agree with the above with the following additions/corrections: She feels tired/fatigued. States she is forgetting words and names. No unilateral symptoms. Lived with one brother and now another, neither of them are having symptoms. States it is hard to think/move. Denies coughing. States her body feels heavy. Having low back pain and right leg pain. She has been taking calcium chews which seem to give her energy. Says more than once that ENT removed her thyroid/parathyroid and scraped it off and put it back. Does not remember what year they did this, believes it was the year her father but doesn't know. Just saw her PCP Barbara Sanders yesterday. States she Takes 225mcg levothyroxine daily and does so first thing in the morning on an empty stomach. <Erinn Diaz MD - Last Filed: 07/12/24 23:50> Related Data Home medications: Home Medications ?Medication ?Instructions ?Recorded ?Confirmed ?Last Taken ?Type amlodipine 10 mg tablet 10 mg PO DAILY 05/26/24 06/06/24 06/06/24 History atenolol 50 mg tablet 50 mg PO Q24H 05/26/24 06/06/24 06/06/24 History levothyroxine 200 mcg tablet 200 mcg PO DAILY 05/26/24 06/06/24 06/06/24 History levothyroxine 25 mcg tablet 25 mcg PO DAILY 05/26/24 06/06/24 06/06/24 History naproxen 500 mg tablet 500 mg PO Q8H 05/26/24 05/26/24 Unknown History olanzapine 7.5 mg tablet 7.5 mg PO QPM 05/26/24 05/26/24 Unknown History sertraline 100 mg tablet 100 mg PO Q24H 05/26/24 05/26/24 Unknown History <Merissa Phoenix BANKING MANAGEMENT CONSULTING MANAGER - Last Filed: 07/11/24 18:37> Allergies/adverse reactions: Allergies Allergy/AdvReac Type Severity Reaction Status Date / Time adhesive tape Allergy Intermediate Rash Verified 07/11/24 18:18 lactose AdvReac Intermediate Diarrhea Verified 07/11/24 18:18 <Merissa Phoenix APRN - Last Filed: 07/11/24 18:37> [facility] Past Medical History Medical History: Medical History Tachycardia Hypertension Hypothyroidism Depression Anxiety Thyroid cancer <Merissa Phoenix APRN - Last Filed: 07/11/24 18:37> Surgical History Surgical History: Surgical History H/O partial thyroidectomy Right, 04/10/2018 <Merissa Phoenix APRN - Last Filed: 07/11/24 18:37> Social History Social History: Social History Smoking packs per day: 1 Smoking cigarettes per day: 20.0 Years smoked: 4 Smoking pack-years: 4.00 Smoking status: Former smoker Tobacco type: cigarettes Smoking end date: 04/02/20 Additional smoking assessment comments: Vapes now, vrs smoking Alcohol intake: never Substance use type: marijuana and other Other substance usage details: Vapes and Marijuana smokes daily Living arrangements: with family Additional living arrangements comments: Brother Spiritual care concerns: No <Merissa Phoenix APRN - Last Filed: 07/11/24 18:37> Exam 2 Narrative: GENERAL: Well-appearing, well-nourished, and in no acute distress. HEAD: Normocephalic, atraumatic. EYES: Non injected, non icteric ENT: Nares clear, no rhinorrhea or epistaxis. NECK: Supple. CHEST: Speaking in full sentences. No respiratory distress. HEART: Regular rate and rhythm. . ABDOMEN: Obese, Soft, nondistended. EXTREMITIES: Patient able to demonstrate ability to sit up in bed and dangle legs but poor effort on bilateral ankle flexion/extension and knee flexion/extension against resistance. No lower extremity edema. SKIN: Warm, dry, no rash. NEURO: No focal deficits. Alert and oriented x3. Brisk bilateral patellar reflexes. sensation intact throughout bilateral lower extremities PSYCH: Congruent mood and affect. <Erinn Diaz MD - Last Filed: 07/12/24 23:50> Course Vital Signs Vital signs: Vital Signs Temperature 97.3 F L 07/11/24 18:29 Pulse Rate 81 07/11/24 18:29 Respiratory Rate 16 07/11/24 18:29 Blood Pressure 143/100 H 07/11/24 18:29 Pulse Oximetry 100 07/11/24 18:29 Temperature 97.7 F 07/11/24 22:48 Pulse Rate 76 07/11/24 22:48 Respiratory Rate 16 07/11/24 22:48 Blood Pressure 137/76 07/11/24 22:48 Pulse Oximetry 98 07/11/24 22:48 <Merissa Phoenix APRN - Last Filed: 07/11/24 18:37> Vital Signs Temperature 97.3 F L 07/11/24 18:29 Pulse Rate 81 07/11/24 18:29 Respiratory Rate 16 07/11/24 18:29 Blood Pressure 143/100 H 07/11/24 18:29 Pulse Oximetry 100 07/11/24 18:29 Temperature 97.7 F 07/11/24 22:48 Pulse Rate 76 07/11/24 22:48 Respiratory Rate 16 07/11/24 22:48 Blood Pressure 137/76 07/11/24 22:48 Pulse Oximetry 98 07/11/24 22:48 <Erinn Diaz MD - Last Filed: 07/12/24 23:50> Medical Decision Making MDM Narrative Medical decision making narrative: Patient presents with concern for hyopthyroidism. Seen here a few days ago at which point her calcium was low. She is worried because she has been forgetful and fatigued. The emergency department she is afebrile with vital signs notable for hypertension. Thrombocytosis, has had thrombocytosis before, slightly worse today. test negative. Patient's calcium corrects (negatively) to 8.4 given her albumin. This is still normal. 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 UDS positive for cannabinoids. CPK mildly elevated but not to a degree to suggest rhabdomyolysis. Will defer repeating imaging as patient just had CT brain, chest, etc. I am told by the tech that she ambulated to the bathroom without difficulty. Normal Vitamin B12 and folate. I did ask the patient about her marijuana use and she states that she does use marijuana daily/near daily although far less than she used to. I discussed that while I could not guarantee that all of her symptoms are related to this, it might be worthy of stopping to see if her symptoms improve. If she wants to follow up on obtaining an ionized calcium (a send out lab here), her PCP can order this. I did instead put an order in and Cc'd her PCP for the result. Provided her a copy of the imaging reports and labs that were obtained on 07/08/2024. Also instructed that she use the portal in the future. <Erinn Diaz MD - Last Filed: 07/12/24 23:50> Medical Records Medical records narrative: Imaging from 07/08/24 is reviewed: Impression: No evidence of pulmonary embolus, aortic dissection, or aortic aneurysm. Clear lungs. Impression: No significant abnormality seen. Impression: Mild reversal of the normal cervical lordosis, otherwise unremarkable exam. Impression: Normal chest. <Erinn Diaz MD - Last Filed: 07/12/24 23:50> Vital Signs Vital Signs: Vital Signs Temperature 97.3 F L 07/11/24 18:29 Pulse Rate 81 07/11/24 18:29 Respiratory Rate 16 07/11/24 18:29 Blood Pressure 143/100 H 07/11/24 18:29 Pulse Oximetry 100 07/11/24 18:29 Temperature 97.7 F 07/11/24 22:48 Pulse Rate 76 07/11/24 22:48 Respiratory Rate 16 07/11/24 22:48 Blood Pressure 137/76 07/11/24 22:48 Pulse Oximetry 98 07/11/24 22:48 <Merissa Phoenix APRN - Last Filed: 07/11/24 18:37> Vital Signs Temperature 97.3 F L 07/11/24 18:29 Pulse Rate 81 07/11/24 18:29 Respiratory Rate 16 07/11/24 18:29 Blood Pressure 143/100 H 07/11/24 18:29 Pulse Oximetry 100 07/11/24 18:29 Temperature 97.7 F 07/11/24 22:48 Pulse Rate 76 07/11/24 22:48 Respiratory Rate 16 07/11/24 22:48 Blood Pressure 137/76 07/11/24 22:48 Pulse Oximetry 98 07/11/24 22:48 <Erinn Diaz MD - Last Filed: 07/12/24 23:50> Lab Data Lab results reviewed: Yes I reviewed the patient's lab results. <Erinn Diaz MD - Last Filed: 07/12/24 23:50> Lab results narrative: Urinalysis unremarkable, no marked electrolyte abnormalities <Erinn Diaz MD - Last Filed: 07/12/24 23:50> Result diagrams: 07/11/24 18:40 07/11/24 18:40 <Merissa Phoenix APRN - Last Filed: 07/11/24 18:37> Labs: Lab Results 07/11/24 07/11/24 07/11/24 Range/Units 18:33 18:39 18:40 WBC 10.0 (4.5-10.0) K/mm3 RBC 4.88 (4.2-5.4) M/mm3 Hgb 15.4 H (12.0-15.0) g/dL Hct 46.4 (37.0-47.0) % MCV 95.1 (80-100) fl MCH 31.6 (26-34) pg MCHC 33.2 (32-36) g/dl RDW 12.4 (11.5-14.5) % Plt Count 474 H (150-375) k/mm3 MPV 9.3 (7.4-10.4) fl Immature Gran % (Auto) 0.4 (0-0.5) % Neut % (Auto) 65.2 (45.5-73.1) % Lymph % (Auto) 21.6 (18.3-44.2) % [place] % (Auto) 10.6 H (2.6-8.5) % Eos % (Auto) 1.5 (0-4.4) % Baso % (Auto) 0.7 (0.2-1.2) % Lymph # (Auto) 2.15 (0.9-3.2) K/mm3 [place] # (Auto) 1.1 H (0.1-0.6) K/mm3 Eos # (Auto) 0.2 (0-0.3) K/mm3 Baso # (Auto) 0.1 (0.0-0.1) K/mm3 Abs Immat Gran (auto) 0.04 H (0.00-0.031) K/mm3 Absolute Neuts (auto) 6.5 (1.3-6.7) K/mm3 Absolute Nucleated RBC 0.000 (0.0-0.012) K/mm3 Nucleated RBC % 0.0 (0.0-0.2) % PT 12.9 (11.1-14.7) Seconds INR 0.9 APTT 23.5 (22.3-36.8) Seconds Sodium Cancelled Potassium Chloride Carbon Dioxide Anion Gap BUN Creatinine Estim Creat Clear Calc Estimated GFR Glucose POC Capillary Glucose (65-105) mg/dl Calcium Phosphorus 4.0 (2.5-4.5) mg/dL Magnesium 1.7 (1.6-2.3) mg/dL Total Bilirubin AST ALT Alkaline Phosphatase Total Creatine Kinase 165 H (30-135) U/L Troponin I (0.000-0.034) ng/mL Total Protein Albumin Vitamin B12 (239-931) pg/mL Folate (2.76->20) ng/mL TSH Thyroxine (T4) 8.76 (5.53-11.0) ug/dL Free T3 pg/mL 3.89 (2.32-6.09) pg/mL Urine Color (Yellow) Urine Appearance (Clear) Urine pH (5.0-9.0) Ur Specific Waterproof (1.001-1.035) Urine Protein (Negative) mg/dL Urine Glucose (UA) (Negative) mg/dL Urine Ketones (Negative) mg/dL Ur Blood (Man) (Negative) Urine Nitrate (Negative) Urine Bilirubin (Negative) Urine Urobilinogen (<2.0) mg/dL Leukocyte Esterase Rfl (Negative) PERFECTO/UL POC Urine HCG, Qual (Negative) Urine Opiates Screen (Negative) Urine Methadone Screen (Negative) Ur Barbiturates Screen (Negative) Ur Phencyclidine Scrn (Negative) Ur Amphetamine Screen (Negative) U Benzodiazepines Scrn (Negative) Urine Cocaine Screen (Negative) U Cannabinoids Screen (Negative) Influenza A (RT-PCR) (Negative) Influenza B (RT-PCR) (Negative) RSV (RT-PCR) (Negative) SARS-CoV-2 RNA (RT-PCR) (Negative) 07/11/24 07/11/24 07/11/24 Range/Units 18:40 18:40 18:40 WBC (4.5-10.0) K/mm3 RBC (4.2-5.4) M/mm3 Hgb (12.0-15.0) g/dL Hct (37.0-47.0) % MCV (80-100) fl MCH (26-34) pg MCHC (32-36) g/dl RDW (11.5-14.5) % Plt Count (150-375) k/mm3 MPV (7.4-10.4) fl Immature Gran % (Auto) (0-0.5) % Neut % (Auto) (45.5-73.1) % Lymph % (Auto) (18.3-44.2) % [place] % (Auto) (2.6-8.5) % Eos % (Auto) (0-4.4) % Baso % (Auto) (0.2-1.2) % Lymph # (Auto) (0.9-3.2) K/mm3 [place] # (Auto) (0.1-0.6) K/mm3 Eos # (Auto) (0-0.3) K/mm3 Baso # (Auto) (0.0-0.1) K/mm3 Abs Immat Gran (auto) (0.00-0.031) K/mm3 Absolute Neuts (auto) (1.3-6.7) K/mm3 Absolute Nucleated RBC (0.0-0.012) K/mm3 Nucleated RBC % (0.0-0.2) % PT (11.1-14.7) Seconds INR APTT (22.3-36.8) Seconds Sodium 141 Potassium Cancelled 4.3 Chloride Cancelled 102 Carbon Dioxide Cancelled Anion Gap BUN Creatinine Estim Creat Clear Calc Estimated GFR Glucose POC Capillary Glucose (65-105) mg/dl Calcium Phosphorus (2.5-4.5) mg/dL Magnesium (1.6-2.3) mg/dL Total Bilirubin AST ALT Alkaline Phosphatase Total Creatine Kinase (30-135) U/L Troponin I (0.000-0.034) ng/mL Total Protein Albumin Vitamin B12 (239-931) pg/mL Folate (2.76->20) ng/mL TSH Thyroxine (T4) (5.53-11.0) ug/dL Free T3 pg/mL (2.32-6.09) pg/mL Urine Color (Yellow) Urine Appearance (Clear) Urine pH (5.0-9.0) Ur Specific Waterproof (1.001-1.035) Urine Protein (Negative) mg/dL Urine Glucose (UA) (Negative) mg/dL Urine Ketones (Negative) mg/dL Ur Blood (Man) (Negative) Urine Nitrate (Negative) Urine Bilirubin (Negative) Urine Urobilinogen (<2.0) mg/dL Leukocyte Esterase Rfl (Negative) PERFECTO/UL POC Urine HCG, Qual (Negative) Urine Opiates Screen (Negative) Urine Methadone Screen (Negative) Ur Barbiturates Screen (Negative) Ur Phencyclidine Scrn (Negative) Ur Amphetamine Screen (Negative) U Benzodiazepines Scrn (Negative) Urine Cocaine Screen (Negative) U Cannabinoids Screen (Negative) Influenza A (RT-PCR) (Negative) Influenza B (RT-PCR) (Negative) RSV (RT-PCR) (Negative) SARS-CoV-2 RNA (RT-PCR) (Negative) 07/11/24 07/11/24 07/11/24 Range/Units 18:40 18:40 18:40 WBC (4.5-10.0) K/mm3 RBC (4.2-5.4) M/mm3 Hgb (12.0-15.0) g/dL Hct (37.0-47.0) % MCV (80-100) fl MCH (26-34) pg MCHC (32-36) g/dl RDW (11.5-14.5) % Plt Count (150-375) k/mm3 MPV (7.4-10.4) fl Immature Gran % (Auto) (0-0.5) % Neut % (Auto) (45.5-73.1) % Lymph % (Auto) (18.3-44.2) % [place] % (Auto) (2.6-8.5) % Eos % (Auto) (0-4.4) % Baso % (Auto) (0.2-1.2) % Lymph # (Auto) (0.9-3.2) K/mm3 [place] # (Auto) (0.1-0.6) K/mm3 Eos # (Auto) (0-0.3) K/mm3 Baso # (Auto) (0.0-0.1) K/mm3 Abs Immat Gran (auto) (0.00-0.031) K/mm3 Absolute Neuts (auto) (1.3-6.7) K/mm3 Absolute Nucleated RBC (0.0-0.012) K/mm3 Nucleated RBC % (0.0-0.2) % PT (11.1-14.7) Seconds INR APTT (22.3-36.8) Seconds Sodium Potassium Chloride Carbon Dioxide 29 Anion Gap Cancelled 10 BUN Cancelled 9 Creatinine Cancelled Estim Creat Clear Calc Estimated GFR Glucose POC Capillary Glucose (65-105) mg/dl Calcium Phosphorus (2.5-4.5) mg/dL Magnesium (1.6-2.3) mg/dL Total Bilirubin AST ALT Alkaline Phosphatase Total Creatine Kinase (30-135) U/L Troponin I (0.000-0.034) ng/mL Total Protein Albumin Vitamin B12 (239-931) pg/mL Folate (2.76->20) ng/mL TSH Thyroxine (T4) (5.53-11.0) ug/dL Free T3 pg/mL (2.32-6.09) pg/mL Urine Color (Yellow) Urine Appearance (Clear) Urine pH (5.0-9.0) Ur Specific Waterproof (1.001-1.035) Urine Protein (Negative) mg/dL Urine Glucose (UA) (Negative) mg/dL Urine Ketones (Negative) mg/dL Ur Blood (Man) (Negative) Urine Nitrate (Negative) Urine Bilirubin (Negative) Urine Urobilinogen (<2.0) mg/dL Leukocyte Esterase Rfl (Negative) PERFECTO/UL POC Urine HCG, Qual (Negative) Urine Opiates Screen (Negative) Urine Methadone Screen (Negative) Ur Barbiturates Screen (Negative) Ur Phencyclidine Scrn (Negative) Ur Amphetamine Screen (Negative) U Benzodiazepines Scrn (Negative) Urine Cocaine Screen (Negative) U Cannabinoids Screen (Negative) Influenza A (RT-PCR) (Negative) Influenza B (RT-PCR) (Negative) RSV (RT-PCR) (Negative) SARS-CoV-2 RNA (RT-PCR) (Negative) 07/11/24 07/11/24 07/11/24 Range/Units 18:40 18:40 18:40 WBC (4.5-10.0) K/mm3 RBC (4.2-5.4) M/mm3 Hgb (12.0-15.0) g/dL Hct (37.0-47.0) % MCV (80-100) fl MCH (26-34) pg MCHC (32-36) g/dl RDW (11.5-14.5) % Plt Count (150-375) k/mm3 MPV (7.4-10.4) fl Immature Gran % (Auto) (0-0.5) % Neut % (Auto) (45.5-73.1) % Lymph % (Auto) (18.3-44.2) % [place] % (Auto) (2.6-8.5) % Eos % (Auto) (0-4.4) % Baso % (Auto) (0.2-1.2) % Lymph # (Auto) (0.9-3.2) K/mm3 [place] # (Auto) (0.1-0.6) K/mm3 Eos # (Auto) (0-0.3) K/mm3 Baso # (Auto) (0.0-0.1) K/mm3 Abs Immat Gran (auto) (0.00-0.031) K/mm3 Absolute Neuts (auto) (1.3-6.7) K/mm3 Absolute Nucleated RBC (0.0-0.012) K/mm3 Nucleated RBC % (0.0-0.2) % PT (11.1-14.7) Seconds INR APTT (22.3-36.8) Seconds Sodium Potassium Chloride Carbon Dioxide Anion Gap BUN Creatinine 0.78 Estim Creat Clear Calc Cancelled 136 Estimated GFR Cancelled > 60 Glucose Cancelled POC Capillary Glucose (65-105) mg/dl Calcium Phosphorus (2.5-4.5) mg/dL Magnesium (1.6-2.3) mg/dL Total Bilirubin AST ALT Alkaline Phosphatase Total Creatine Kinase (30-135) U/L Troponin I (0.000-0.034) ng/mL Total Protein Albumin Vitamin B12 (239-931) pg/mL Folate (2.76->20) ng/mL TSH Thyroxine (T4) (5.53-11.0) ug/dL Free T3 pg/mL (2.32-6.09) pg/mL Urine Color (Yellow) Urine Appearance (Clear) Urine pH (5.0-9.0) Ur Specific Waterproof (1.001-1.035) Urine Protein (Negative) mg/dL Urine Glucose (UA) (Negative) mg/dL Urine Ketones (Negative) mg/dL Ur Blood (Man) (Negative) Urine Nitrate (Negative) Urine Bilirubin (Negative) Urine Urobilinogen (<2.0) mg/dL Leukocyte Esterase Rfl (Negative) PERFECTO/UL POC Urine HCG, Qual (Negative) Urine Opiates Screen (Negative) Urine Methadone Screen (Negative) Ur Barbiturates Screen (Negative) Ur Phencyclidine Scrn (Negative) Ur Amphetamine Screen (Negative) U Benzodiazepines Scrn (Negative) Urine Cocaine Screen (Negative) U Cannabinoids Screen (Negative) Influenza A (RT-PCR) (Negative) Influenza B (RT-PCR) (Negative) RSV (RT-PCR) (Negative) SARS-CoV-2 RNA (RT-PCR) (Negative) 07/11/24 07/11/24 07/11/24 Range/Units 18:40 18:40 18:40 WBC (4.5-10.0) K/mm3 RBC (4.2-5.4) M/mm3 Hgb (12.0-15.0) g/dL Hct (37.0-47.0) % MCV (80-100) fl MCH (26-34) pg MCHC (32-36) g/dl RDW (11.5-14.5) % Plt Count (150-375) k/mm3 MPV (7.4-10.4) fl Immature Gran % (Auto) (0-0.5) % Neut % (Auto) (45.5-73.1) % Lymph % (Auto) (18.3-44.2) % [place] % (Auto) (2.6-8.5) % Eos % (Auto) (0-4.4) % Baso % (Auto) (0.2-1.2) % Lymph # (Auto) (0.9-3.2) K/mm3 [place] # (Auto) (0.1-0.6) K/mm3 Eos # (Auto) (0-0.3) K/mm3 Baso # (Auto) (0.0-0.1) K/mm3 Abs Immat Gran (auto) (0.00-0.031) K/mm3 Absolute Neuts (auto) (1.3-6.7) K/mm3 Absolute Nucleated RBC (0.0-0.012) K/mm3 Nucleated RBC % (0.0-0.2) % PT (11.1-14.7) Seconds INR APTT (22.3-36.8) Seconds Sodium Potassium Chloride Carbon Dioxide Anion Gap BUN Creatinine Estim Creat Clear Calc Estimated GFR Glucose 104 POC Capillary Glucose (65-105) mg/dl Calcium Cancelled 9.0 Phosphorus (2.5-4.5) mg/dL Magnesium (1.6-2.3) mg/dL Total Bilirubin Cancelled 1.1 AST Cancelled ALT Alkaline Phosphatase Total Creatine Kinase (30-135) U/L Troponin I (0.000-0.034) ng/mL Total Protein Albumin Vitamin B12 (239-931) pg/mL Folate (2.76->20) ng/mL TSH Thyroxine (T4) (5.53-11.0) ug/dL Free T3 pg/mL (2.32-6.09) pg/mL Urine Color (Yellow) Urine Appearance (Clear) Urine pH (5.0-9.0) Ur Specific Waterproof (1.001-1.035) Urine Protein (Negative) mg/dL Urine Glucose (UA) (Negative) mg/dL Urine Ketones (Negative) mg/dL Ur Blood (Man) (Negative) Urine Nitrate (Negative) Urine Bilirubin (Negative) Urine Urobilinogen (<2.0) mg/dL Leukocyte Esterase Rfl (Negative) PERFECTO/UL POC Urine HCG, Qual (Negative) Urine Opiates Screen (Negative) Urine Methadone Screen (Negative) Ur Barbiturates Screen (Negative) Ur Phencyclidine Scrn (Negative) Ur Amphetamine Screen (Negative) U Benzodiazepines Scrn (Negative) Urine Cocaine Screen (Negative) U Cannabinoids Screen (Negative) Influenza A (RT-PCR) (Negative) Influenza B (RT-PCR) (Negative) RSV (RT-PCR) (Negative) SARS-CoV-2 RNA (RT-PCR) (Negative) 07/11/24 07/11/24 07/11/24 Range/Units 18:40 18:40 18:40 WBC (4.5-10.0) K/mm3 RBC (4.2-5.4) M/mm3 Hgb (12.0-15.0) g/dL Hct (37.0-47.0) % MCV (80-100) fl MCH (26-34) pg MCHC (32-36) g/dl RDW (11.5-14.5) % Plt Count (150-375) k/mm3 MPV (7.4-10.4) fl Immature Gran % (Auto) (0-0.5) % Neut % (Auto) (45.5-73.1) % Lymph % (Auto) (18.3-44.2) % [place] % (Auto) (2.6-8.5) % Eos % (Auto) (0-4.4) % Baso % (Auto) (0.2-1.2) % Lymph # (Auto) (0.9-3.2) K/mm3 [place] # (Auto) (0.1-0.6) K/mm3 Eos # (Auto) (0-0.3) K/mm3 Baso # (Auto) (0.0-0.1) K/mm3 Abs Immat Gran (auto) (0.00-0.031) K/mm3 Absolute Neuts (auto) (1.3-6.7) K/mm3 Absolute Nucleated RBC (0.0-0.012) K/mm3 Nucleated RBC % (0.0-0.2) % PT (11.1-14.7) Seconds INR APTT (22.3-36.8) Seconds Sodium Potassium Chloride Carbon Dioxide Anion Gap BUN Creatinine Estim Creat Clear Calc Estimated GFR Glucose POC Capillary Glucose (65-105) mg/dl Calcium Phosphorus (2.5-4.5) mg/dL Magnesium (1.6-2.3) mg/dL Total Bilirubin AST 37 H ALT Cancelled 39 H Alkaline Phosphatase Cancelled 45 Total Creatine Kinase (30-135) U/L Troponin I < 0.012 (0.000-0.034) ng/mL Total Protein Cancelled Albumin Vitamin B12 (239-931) pg/mL Folate (2.76->20) ng/mL TSH Thyroxine (T4) (5.53-11.0) ug/dL Free T3 pg/mL (2.32-6.09) pg/mL Urine Color (Yellow) Urine Appearance (Clear) Urine pH (5.0-9.0) Ur Specific Waterproof (1.001-1.035) Urine Protein (Negative) mg/dL Urine Glucose (UA) (Negative) mg/dL Urine Ketones (Negative) mg/dL Ur Blood (Man) (Negative) Urine Nitrate (Negative) Urine Bilirubin (Negative) Urine Urobilinogen (<2.0) mg/dL Leukocyte Esterase Rfl (Negative) PERFECTO/UL POC Urine HCG, Qual (Negative) Urine Opiates Screen (Negative) Urine Methadone Screen (Negative) Ur Barbiturates Screen (Negative) Ur Phencyclidine Scrn (Negative) Ur Amphetamine Screen (Negative) U Benzodiazepines Scrn (Negative) Urine Cocaine Screen (Negative) U Cannabinoids Screen (Negative) Influenza A (RT-PCR) (Negative) Influenza B (RT-PCR) (Negative) RSV (RT-PCR) (Negative) SARS-CoV-2 RNA (RT-PCR) (Negative) 07/11/24 07/11/24 07/11/24 Range/Units 18:40 18:40 18:40 WBC (4.5-10.0) K/mm3 RBC (4.2-5.4) M/mm3 Hgb (12.0-15.0) g/dL Hct (37.0-47.0) % MCV (80-100) fl MCH (26-34) pg MCHC (32-36) g/dl RDW (11.5-14.5) % Plt Count (150-375) k/mm3 MPV (7.4-10.4) fl Immature Gran % (Auto) (0-0.5) % Neut % (Auto) (45.5-73.1) % Lymph % (Auto) (18.3-44.2) % [place] % (Auto) (2.6-8.5) % Eos % (Auto) (0-4.4) % Baso % (Auto) (0.2-1.2) % Lymph # (Auto) (0.9-3.2) K/mm3 [place] # (Auto) (0.1-0.6) K/mm3 Eos # (Auto) (0-0.3) K/mm3 Baso # (Auto) (0.0-0.1) K/mm3 Abs Immat Gran (auto) (0.00-0.031) K/mm3 Absolute Neuts (auto) (1.3-6.7) K/mm3 Absolute Nucleated RBC (0.0-0.012) K/mm3 Nucleated RBC % (0.0-0.2) % PT (11.1-14.7) Seconds INR APTT (22.3-36.8) Seconds Sodium Potassium Chloride Carbon Dioxide Anion Gap BUN Creatinine Estim Creat Clear Calc Estimated GFR Glucose POC Capillary Glucose (65-105) mg/dl Calcium Phosphorus (2.5-4.5) mg/dL Magnesium (1.6-2.3) mg/dL Total Bilirubin AST ALT Alkaline Phosphatase Total Creatine Kinase (30-135) U/L Troponin I (0.000-0.034) ng/mL Total Protein 8.0 Albumin Cancelled 4.7 Vitamin B12 343.0 (239-931) pg/mL Folate 14.0 (2.76->20) ng/mL TSH Cancelled 6.680 H Thyroxine (T4) (5.53-11.0) ug/dL Free T3 pg/mL (2.32-6.09) pg/mL Urine Color (Yellow) Urine Appearance (Clear) Urine pH (5.0-9.0) Ur Specific Waterproof (1.001-1.035) Urine Protein (Negative) mg/dL Urine Glucose (UA) (Negative) mg/dL Urine Ketones (Negative) mg/dL Ur Blood (Man) (Negative) Urine Nitrate (Negative) Urine Bilirubin (Negative) Urine Urobilinogen (<2.0) mg/dL Leukocyte Esterase Rfl (Negative) PERFECTO/UL POC Urine HCG, Qual (Negative) Urine Opiates Screen (Negative) Urine Methadone Screen (Negative) Ur Barbiturates Screen (Negative) Ur Phencyclidine Scrn (Negative) Ur Amphetamine Screen (Negative) U Benzodiazepines Scrn (Negative) Urine Cocaine Screen (Negative) U Cannabinoids Screen (Negative) Influenza A (RT-PCR) (Negative) Influenza B (RT-PCR) (Negative) RSV (RT-PCR) (Negative) SARS-CoV-2 RNA (RT-PCR) (Negative) 07/11/24 07/11/24 07/11/24 Range/Units 20:22 20:50 21:20 WBC (4.5-10.0) K/mm3 RBC (4.2-5.4) M/mm3 Hgb (12.0-15.0) g/dL Hct (37.0-47.0) % MCV (80-100) fl MCH (26-34) pg MCHC (32-36) g/dl RDW (11.5-14.5) % Plt Count (150-375) k/mm3 MPV (7.4-10.4) fl Immature Gran % (Auto) (0-0.5) % Neut % (Auto) (45.5-73.1) % Lymph % (Auto) (18.3-44.2) % [place] % (Auto) (2.6-8.5) % Eos % (Auto) (0-4.4) % Baso % (Auto) (0.2-1.2) % Lymph # (Auto) (0.9-3.2) K/mm3 [place] # (Auto) (0.1-0.6) K/mm3 Eos # (Auto) (0-0.3) K/mm3 Baso # (Auto) (0.0-0.1) K/mm3 Abs Immat Gran (auto) (0.00-0.031) K/mm3 Absolute Neuts (auto) (1.3-6.7) K/mm3 Absolute Nucleated RBC (0.0-0.012) K/mm3 Nucleated RBC % (0.0-0.2) % PT (11.1-14.7) Seconds INR APTT (22.3-36.8) Seconds Sodium Potassium Chloride Carbon Dioxide Anion Gap BUN Creatinine Estim Creat Clear Calc Estimated GFR Glucose POC Capillary Glucose 81 (65-105) mg/dl Calcium Phosphorus (2.5-4.5) mg/dL Magnesium (1.6-2.3) mg/dL Total Bilirubin AST ALT Alkaline Phosphatase Total Creatine Kinase (30-135) U/L Troponin I (0.000-0.034) ng/mL Total Protein Albumin Vitamin B12 (239-931) pg/mL Folate (2.76->20) ng/mL TSH Thyroxine (T4) (5.53-11.0) ug/dL Free T3 pg/mL (2.32-6.09) pg/mL Urine Color Yellow (Yellow) Urine Appearance Clear (Clear) Urine pH 7.5 (5.0-9.0) Ur Specific Waterproof 1.009 (1.001-1.035) Urine Protein Negative (Negative) mg/dL Urine Glucose (UA) Negative (Negative) mg/dL Urine Ketones Negative (Negative) mg/dL Ur Blood (Man) Negative (Negative) Urine Nitrate Negative (Negative) Urine Bilirubin Negative (Negative) Urine Urobilinogen 0.2 (<2.0) mg/dL Leukocyte Esterase Rfl Negative (Negative) PERFECTO/UL POC Urine HCG, Qual Negative (Negative) Urine Opiates Screen Negative (Negative) Urine Methadone Screen Negative (Negative) Ur Barbiturates Screen Negative (Negative) Ur Phencyclidine Scrn Negative (Negative) Ur Amphetamine Screen Negative (Negative) U Benzodiazepines Scrn Negative (Negative) Urine Cocaine Screen Negative (Negative) U Cannabinoids Screen Positive A (Negative) Influenza A (RT-PCR) Negative (Negative) Influenza B (RT-PCR) Negative (Negative) RSV (RT-PCR) Negative (Negative) SARS-CoV-2 RNA (RT-PCR) Negative (Negative) <Merissa Phoenix, [employer]ING MANAGER - Last Filed: 07/11/24 18:37> Lab Results 07/11/24 07/11/24 07/11/24 Range/Units 18:33 18:39 18:40 WBC 10.0 (4.5-10.0) K/mm3 RBC 4.88 (4.2-5.4) M/mm3 Hgb 15.4 H (12.0-15.0) g/dL Hct 46.4 (37.0-47.0) % MCV 95.1 (80-100) fl MCH 31.6 (26-34) pg MCHC 33.2 (32-36) g/dl RDW 12.4 (11.5-14.5) % Plt Count 474 H (150-375) k/mm3 MPV 9.3 (7.4-10.4) fl Immature Gran % (Auto) 0.4 (0-0.5) % Neut % (Auto) 65.2 (45.5-73.1) % Lymph % (Auto) 21.6 (18.3-44.2) % [place] % (Auto) 10.6 H (2.6-8.5) % Eos % (Auto) 1.5 (0-4.4) % Baso % (Auto) 0.7 (0.2-1.2) % Lymph # (Auto) 2.15 (0.9-3.2) K/mm3 [place] # (Auto) 1.1 H (0.1-0.6) K/mm3 Eos # (Auto) 0.2 (0-0.3) K/mm3 Baso # (Auto) 0.1 (0.0-0.1) K/mm3 Abs Immat Gran (auto) 0.04 H (0.00-0.031) K/mm3 Absolute Neuts (auto) 6.5 (1.3-6.7) K/mm3 Absolute Nucleated RBC 0.000 (0.0-0.012) K/mm3 Nucleated RBC % 0.0 (0.0-0.2) % PT 12.9 (11.1-14.7) Seconds INR 0.9 APTT 23.5 (22.3-36.8) Seconds Sodium Cancelled Potassium Chloride Carbon Dioxide Anion Gap BUN Creatinine Estim Creat Clear Calc Estimated GFR Glucose POC Capillary Glucose (65-105) mg/dl Calcium Phosphorus 4.0 (2.5-4.5) mg/dL Magnesium 1.7 (1.6-2.3) mg/dL Total Bilirubin AST ALT Alkaline Phosphatase Total Creatine Kinase 165 H (30-135) U/L Troponin I (0.000-0.034) ng/mL Total Protein Albumin Vitamin B12 (239-931) pg/mL Folate (2.76->20) ng/mL TSH Thyroxine (T4) 8.76 (5.53-11.0) ug/dL Free T3 pg/mL 3.89 (2.32-6.09) pg/mL Urine Color (Yellow) Urine Appearance (Clear) Urine pH (5.0-9.0) Ur Specific Waterproof (1.001-1.035) Urine Protein (Negative) mg/dL Urine Glucose (UA) (Negative) mg/dL Urine Ketones (Negative) mg/dL Ur Blood (Man) (Negative) Urine Nitrate (Negative) Urine Bilirubin (Negative) Urine Urobilinogen (<2.0) mg/dL Leukocyte Esterase Rfl (Negative) PERFECTO/UL POC Urine HCG, Qual (Negative) Urine Opiates Screen (Negative) Urine Methadone Screen (Negative) Ur Barbiturates Screen (Negative) Ur Phencyclidine Scrn (Negative) Ur Amphetamine Screen (Negative) U Benzodiazepines Scrn (Negative) Urine Cocaine Screen (Negative) U Cannabinoids Screen (Negative) Influenza A (RT-PCR) (Negative) Influenza B (RT-PCR) (Negative) RSV (RT-PCR) (Negative) SARS-CoV-2 RNA (RT-PCR) (Negative) 07/11/24 07/11/24 07/11/24 Range/Units 18:40 18:40 18:40 WBC (4.5-10.0) K/mm3 RBC (4.2-5.4) M/mm3 Hgb (12.0-15.0) g/dL Hct (37.0-47.0) % MCV (80-100) fl MCH (26-34) pg MCHC (32-36) g/dl RDW (11.5-14.5) % Plt Count (150-375) k/mm3 MPV (7.4-10.4) fl Immature Gran % (Auto) (0-0.5) % Neut % (Auto) (45.5-73.1) % Lymph % (Auto) (18.3-44.2) % [place] % (Auto) (2.6-8.5) % Eos % (Auto) (0-4.4) % Baso % (Auto) (0.2-1.2) % Lymph # (Auto) (0.9-3.2) K/mm3 [place] # (Auto) (0.1-0.6) K/mm3 Eos # (Auto) (0-0.3) K/mm3 Baso # (Auto) (0.0-0.1) K/mm3 Abs Immat Gran (auto) (0.00-0.031) K/mm3 Absolute Neuts (auto) (1.3-6.7) K/mm3 Absolute Nucleated RBC (0.0-0.012) K/mm3 Nucleated RBC % (0.0-0.2) % PT (11.1-14.7) Seconds INR APTT (22.3-36.8) Seconds Sodium 141 Potassium Cancelled 4.3 Chloride Cancelled 102 Carbon Dioxide Cancelled Anion Gap BUN Creatinine Estim Creat Clear Calc Estimated GFR Glucose POC Capillary Glucose (65-105) mg/dl Calcium Phosphorus (2.5-4.5) mg/dL Magnesium (1.6-2.3) mg/dL Total Bilirubin AST ALT Alkaline Phosphatase Total Creatine Kinase (30-135) U/L Troponin I (0.000-0.034) ng/mL Total Protein Albumin Vitamin B12 (239-931) pg/mL Folate (2.76->20) ng/mL TSH Thyroxine (T4) (5.53-11.0) ug/dL Free T3 pg/mL (2.32-6.09) pg/mL Urine Color (Yellow) Urine Appearance (Clear) Urine pH (5.0-9.0) Ur Specific Waterproof (1.001-1.035) Urine Protein (Negative) mg/dL Urine Glucose (UA) (Negative) mg/dL Urine Ketones (Negative) mg/dL Ur Blood (Man) (Negative) Urine Nitrate (Negative) Urine Bilirubin (Negative) Urine Urobilinogen (<2.0) mg/dL Leukocyte Esterase Rfl (Negative) PERFECTO/UL POC Urine HCG, Qual (Negative) Urine Opiates Screen (Negative) Urine Methadone Screen (Negative) Ur Barbiturates Screen (Negative) Ur Phencyclidine Scrn (Negative) Ur Amphetamine Screen (Negative) U Benzodiazepines Scrn (Negative) Urine Cocaine Screen (Negative) U Cannabinoids Screen (Negative) Influenza A (RT-PCR) (Negative) Influenza B (RT-PCR) (Negative) RSV (RT-PCR) (Negative) SARS-CoV-2 RNA (RT-PCR) (Negative) 07/11/24 07/11/24 07/11/24 Range/Units 18:40 18:40 18:40 WBC (4.5-10.0) K/mm3 RBC (4.2-5.4) M/mm3 Hgb (12.0-15.0) g/dL Hct (37.0-47.0) % MCV (80-100) fl MCH (26-34) pg MCHC (32-36) g/dl RDW (11.5-14.5) % Plt Count (150-375) k/mm3 MPV (7.4-10.4) fl Immature Gran % (Auto) (0-0.5) % Neut % (Auto) (45.5-73.1) % Lymph % (Auto) (18.3-44.2) % [place] % (Auto) (2.6-8.5) % Eos % (Auto) (0-4.4) % Baso % (Auto) (0.2-1.2) % Lymph # (Auto) (0.9-3.2) K/mm3 [place] # (Auto) (0.1-0.6) K/mm3 Eos # (Auto) (0-0.3) K/mm3 Baso # (Auto) (0.0-0.1) K/mm3 Abs Immat Gran (auto) (0.00-0.031) K/mm3 Absolute Neuts (auto) (1.3-6.7) K/mm3 Absolute Nucleated RBC (0.0-0.012) K/mm3 Nucleated RBC % (0.0-0.2) % PT (11.1-14.7) Seconds INR APTT (22.3-36.8) Seconds Sodium Potassium Chloride Carbon Dioxide 29 Anion Gap Cancelled 10 BUN Cancelled 9 Creatinine Cancelled Estim Creat Clear Calc Estimated GFR Glucose POC Capillary Glucose (65-105) mg/dl Calcium Phosphorus (2.5-4.5) mg/dL Magnesium (1.6-2.3) mg/dL Total Bilirubin AST ALT Alkaline Phosphatase Total Creatine Kinase (30-135) U/L Troponin I (0.000-0.034) ng/mL Total Protein Albumin Vitamin B12 (239-931) pg/mL Folate (2.76->20) ng/mL TSH Thyroxine (T4) (5.53-11.0) ug/dL Free T3 pg/mL (2.32-6.09) pg/mL Urine Color (Yellow) Urine Appearance (Clear) Urine pH (5.0-9.0) Ur Specific Waterproof (1.001-1.035) Urine Protein (Negative) mg/dL Urine Glucose (UA) (Negative) mg/dL Urine Ketones (Negative) mg/dL Ur Blood (Man) (Negative) Urine Nitrate (Negative) Urine Bilirubin (Negative) Urine Urobilinogen (<2.0) mg/dL Leukocyte Esterase Rfl (Negative) PERFECTO/UL POC Urine HCG, Qual (Negative) Urine Opiates Screen (Negative) Urine Methadone Screen (Negative) Ur Barbiturates Screen (Negative) Ur Phencyclidine Scrn (Negative) Ur Amphetamine Screen (Negative) U Benzodiazepines Scrn (Negative) Urine Cocaine Screen (Negative) U Cannabinoids Screen (Negative) Influenza A (RT-PCR) (Negative) Influenza B (RT-PCR) (Negative) RSV (RT-PCR) (Negative) SARS-CoV-2 RNA (RT-PCR) (Negative) 07/11/24 07/11/24 07/11/24 Range/Units 18:40 18:40 18:40 WBC (4.5-10.0) K/mm3 RBC (4.2-5.4) M/mm3 Hgb (12.0-15.0) g/dL Hct (37.0-47.0) % MCV (80-100) fl MCH (26-34) pg MCHC (32-36) g/dl RDW (11.5-14.5) % Plt Count (150-375) k/mm3 MPV (7.4-10.4) fl Immature Gran % (Auto) (0-0.5) % Neut % (Auto) (45.5-73.1) % Lymph % (Auto) (18.3-44.2) % [place] % (Auto) (2.6-8.5) % Eos % (Auto) (0-4.4) % Baso % (Auto) (0.2-1.2) % Lymph # (Auto) (0.9-3.2) K/mm3 [place] # (Auto) (0.1-0.6) K/mm3 Eos # (Auto) (0-0.3) K/mm3 Baso # (Auto) (0.0-0.1) K/mm3 Abs Immat Gran (auto) (0.00-0.031) K/mm3 Absolute Neuts (auto) (1.3-6.7) K/mm3 Absolute Nucleated RBC (0.0-0.012) K/mm3 Nucleated RBC % (0.0-0.2) % PT (11.1-14.7) Seconds INR APTT (22.3-36.8) Seconds Sodium Potassium Chloride Carbon Dioxide Anion Gap BUN Creatinine 0.78 Estim Creat Clear Calc Cancelled 136 Estimated GFR Cancelled > 60 Glucose Cancelled POC Capillary Glucose (65-105) mg/dl Calcium Phosphorus (2.5-4.5) mg/dL Magnesium (1.6-2.3) mg/dL Total Bilirubin AST ALT Alkaline Phosphatase Total Creatine Kinase (30-135) U/L Troponin I (0.000-0.034) ng/mL Total Protein Albumin Vitamin B12 (239-931) pg/mL Folate (2.76->20) ng/mL TSH Thyroxine (T4) (5.53-11.0) ug/dL Free T3 pg/mL (2.32-6.09) pg/mL Urine Color (Yellow) Urine Appearance (Clear) Urine pH (5.0-9.0) Ur Specific Waterproof (1.001-1.035) Urine Protein (Negative) mg/dL Urine Glucose (UA) (Negative) mg/dL Urine Ketones (Negative) mg/dL Ur Blood (Man) (Negative) Urine Nitrate (Negative) Urine Bilirubin (Negative) Urine Urobilinogen (<2.0) mg/dL Leukocyte Esterase Rfl (Negative) PERFECTO/UL POC Urine HCG, Qual (Negative) Urine Opiates Screen (Negative) Urine Methadone Screen (Negative) Ur Barbiturates Screen (Negative) Ur Phencyclidine Scrn (Negative) Ur Amphetamine Screen (Negative) U Benzodiazepines Scrn (Negative) Urine Cocaine Screen (Negative) U Cannabinoids Screen (Negative) Influenza A (RT-PCR) (Negative) Influenza B (RT-PCR) (Negative) RSV (RT-PCR) (Negative) SARS-CoV-2 RNA (RT-PCR) (Negative) 07/11/24 07/11/24 07/11/24 Range/Units 18:40 18:40 18:40 WBC (4.5-10.0) K/mm3 RBC (4.2-5.4) M/mm3 Hgb (12.0-15.0) g/dL Hct (37.0-47.0) % MCV (80-100) fl MCH (26-34) pg MCHC (32-36) g/dl RDW (11.5-14.5) % Plt Count (150-375) k/mm3 MPV (7.4-10.4) fl Immature Gran % (Auto) (0-0.5) % Neut % (Auto) (45.5-73.1) % Lymph % (Auto) (18.3-44.2) % [place] % (Auto) (2.6-8.5) % Eos % (Auto) (0-4.4) % Baso % (Auto) (0.2-1.2) % Lymph # (Auto) (0.9-3.2) K/mm3 [place] # (Auto) (0.1-0.6) K/mm3 Eos # (Auto) (0-0.3) K/mm3 Baso # (Auto) (0.0-0.1) K/mm3 Abs Immat Gran (auto) (0.00-0.031) K/mm3 Absolute Neuts (auto) (1.3-6.7) K/mm3 Absolute Nucleated RBC (0.0-0.012) K/mm3 Nucleated RBC % (0.0-0.2) % PT (11.1-14.7) Seconds INR APTT (22.3-36.8) Seconds Sodium Potassium Chloride Carbon Dioxide Anion Gap BUN Creatinine Estim Creat Clear Calc Estimated GFR Glucose 104 POC Capillary Glucose (65-105) mg/dl Calcium Cancelled 9.0 Phosphorus (2.5-4.5) mg/dL Magnesium (1.6-2.3) mg/dL Total Bilirubin Cancelled 1.1 AST Cancelled ALT Alkaline Phosphatase Total Creatine Kinase (30-135) U/L Troponin I (0.000-0.034) ng/mL Total Protein Albumin Vitamin B12 (239-931) pg/mL Folate (2.76->20) ng/mL TSH Thyroxine (T4) (5.53-11.0) ug/dL Free T3 pg/mL (2.32-6.09) pg/mL Urine Color (Yellow) Urine Appearance (Clear) Urine pH (5.0-9.0) Ur Specific Waterproof (1.001-1.035) Urine Protein (Negative) mg/dL Urine Glucose (UA) (Negative) mg/dL Urine Ketones (Negative) mg/dL Ur Blood (Man) (Negative) Urine Nitrate (Negative) Urine Bilirubin (Negative) Urine Urobilinogen (<2.0) mg/dL Leukocyte Esterase Rfl (Negative) PERFECTO/UL POC Urine HCG, Qual (Negative) Urine Opiates Screen (Negative) Urine Methadone Screen (Negative) Ur Barbiturates Screen (Negative) Ur Phencyclidine Scrn (Negative) Ur Amphetamine Screen (Negative) U Benzodiazepines Scrn (Negative) Urine Cocaine Screen (Negative) U Cannabinoids Screen (Negative) Influenza A (RT-PCR) (Negative) Influenza B (RT-PCR) (Negative) RSV (RT-PCR) (Negative) SARS-CoV-2 RNA (RT-PCR) (Negative) 07/11/24 07/11/24 07/11/24 Range/Units 18:40 18:40 18:40 WBC (4.5-10.0) K/mm3 RBC (4.2-5.4) M/mm3 Hgb (12.0-15.0) g/dL Hct (37.0-47.0) % MCV (80-100) fl MCH (26-34) pg MCHC (32-36) g/dl RDW (11.5-14.5) % Plt Count (150-375) k/mm3 MPV (7.4-10.4) fl Immature Gran % (Auto) (0-0.5) % Neut % (Auto) (45.5-73.1) % Lymph % (Auto) (18.3-44.2) % [place] % (Auto) (2.6-8.5) % Eos % (Auto) (0-4.4) % Baso % (Auto) (0.2-1.2) % Lymph # (Auto) (0.9-3.2) K/mm3 [place] # (Auto) (0.1-0.6) K/mm3 Eos # (Auto) (0-0.3) K/mm3 Baso # (Auto) (0.0-0.1) K/mm3 Abs Immat Gran (auto) (0.00-0.031) K/mm3 Absolute Neuts (auto) (1.3-6.7) K/mm3 Absolute Nucleated RBC (0.0-0.012) K/mm3 Nucleated RBC % (0.0-0.2) % PT (11.1-14.7) Seconds INR APTT (22.3-36.8) Seconds Sodium Potassium Chloride Carbon Dioxide Anion Gap BUN Creatinine Estim Creat Clear Calc Estimated GFR Glucose POC Capillary Glucose (65-105) mg/dl Calcium Phosphorus (2.5-4.5) mg/dL Magnesium (1.6-2.3) mg/dL Total Bilirubin AST 37 H ALT Cancelled 39 H Alkaline Phosphatase Cancelled 45 Total Creatine Kinase (30-135) U/L Troponin I < 0.012 (0.000-0.034) ng/mL Total Protein Cancelled Albumin Vitamin B12 (239-931) pg/mL Folate (2.76->20) ng/mL TSH Thyroxine (T4) (5.53-11.0) ug/dL Free T3 pg/mL (2.32-6.09) pg/mL Urine Color (Yellow) Urine Appearance (Clear) Urine pH (5.0-9.0) Ur Specific Waterproof (1.001-1.035) Urine Protein (Negative) mg/dL Urine Glucose (UA) (Negative) mg/dL Urine Ketones (Negative) mg/dL Ur Blood (Man) (Negative) Urine Nitrate (Negative) Urine Bilirubin (Negative) Urine Urobilinogen (<2.0) mg/dL Leukocyte Esterase Rfl (Negative) PERFECTO/UL POC Urine HCG, Qual (Negative) Urine Opiates Screen (Negative) Urine Methadone Screen (Negative) Ur Barbiturates Screen (Negative) Ur Phencyclidine Scrn (Negative) Ur Amphetamine Screen (Negative) U Benzodiazepines Scrn (Negative) Urine Cocaine Screen (Negative) U Cannabinoids Screen (Negative) Influenza A (RT-PCR) (Negative) Influenza B (RT-PCR) (Negative) RSV (RT-PCR) (Negative) SARS-CoV-2 RNA (RT-PCR) (Negative) 07/11/24 07/11/24 07/11/24 Range/Units 18:40 18:40 18:40 WBC (4.5-10.0) K/mm3 RBC (4.2-5.4) M/mm3 Hgb (12.0-15.0) g/dL Hct (37.0-47.0) % MCV (80-100) fl MCH (26-34) pg MCHC (32-36) g/dl RDW (11.5-14.5) % Plt Count (150-375) k/mm3 MPV (7.4-10.4) fl Immature Gran % (Auto) (0-0.5) % Neut % (Auto) (45.5-73.1) % Lymph % (Auto) (18.3-44.2) % [place] % (Auto) (2.6-8.5) % Eos % (Auto) (0-4.4) % Baso % (Auto) (0.2-1.2) % Lymph # (Auto) (0.9-3.2) K/mm3 [place] # (Auto) (0.1-0.6) K/mm3 Eos # (Auto) (0-0.3) K/mm3 Baso # (Auto) (0.0-0.1) K/mm3 Abs Immat Gran (auto) (0.00-0.031) K/mm3 Absolute Neuts (auto) (1.3-6.7) K/mm3 Absolute Nucleated RBC (0.0-0.012) K/mm3 Nucleated RBC % (0.0-0.2) % PT (11.1-14.7) Seconds INR APTT (22.3-36.8) Seconds Sodium Potassium Chloride Carbon Dioxide Anion Gap BUN Creatinine Estim Creat Clear Calc Estimated GFR Glucose POC Capillary Glucose (65-105) mg/dl Calcium Phosphorus (2.5-4.5) mg/dL Magnesium (1.6-2.3) mg/dL Total Bilirubin AST ALT Alkaline Phosphatase Total Creatine Kinase (30-135) U/L Troponin I (0.000-0.034) ng/mL Total Protein 8.0 Albumin Cancelled 4.7 Vitamin B12 343.0 (239-931) pg/mL Folate 14.0 (2.76->20) ng/mL TSH Cancelled 6.680 H Thyroxine (T4) (5.53-11.0) ug/dL Free T3 pg/mL (2.32-6.09) pg/mL Urine Color (Yellow) Urine Appearance (Clear) Urine pH (5.0-9.0) Ur Specific Waterproof (1.001-1.035) Urine Protein (Negative) mg/dL Urine Glucose (UA) (Negative) mg/dL Urine Ketones (Negative) mg/dL Ur Blood (Man) (Negative) Urine Nitrate (Negative) Urine Bilirubin (Negative) Urine Urobilinogen (<2.0) mg/dL Leukocyte Esterase Rfl (Negative) PERFECTO/UL POC Urine HCG, Qual (Negative) Urine Opiates Screen (Negative) Urine Methadone Screen (Negative) Ur Barbiturates Screen (Negative) Ur Phencyclidine Scrn (Negative) Ur Amphetamine Screen (Negative) U Benzodiazepines Scrn (Negative) Urine Cocaine Screen (Negative) U Cannabinoids Screen (Negative) Influenza A (RT-PCR) (Negative) Influenza B (RT-PCR) (Negative) RSV (RT-PCR) (Negative) SARS-CoV-2 RNA (RT-PCR) (Negative) 07/11/24 07/11/24 07/11/24 Range/Units 20:22 20:50 21:20 WBC (4.5-10.0) K/mm3 RBC (4.2-5.4) M/mm3 Hgb (12.0-15.0) g/dL Hct (37.0-47.0) % MCV (80-100) fl MCH (26-34) pg MCHC (32-36) g/dl RDW (11.5-14.5) % Plt Count (150-375) k/mm3 MPV (7.4-10.4) fl Immature Gran % (Auto) (0-0.5) % Neut % (Auto) (45.5-73.1) % Lymph % (Auto) (18.3-44.2) % [place] % (Auto) (2.6-8.5) % Eos % (Auto) (0-4.4) % Baso % (Auto) (0.2-1.2) % Lymph # (Auto) (0.9-3.2) K/mm3 [place] # (Auto) (0.1-0.6) K/mm3 Eos # (Auto) (0-0.3) K/mm3 Baso # (Auto) (0.0-0.1) K/mm3 Abs Immat Gran (auto) (0.00-0.031) K/mm3 Absolute Neuts (auto) (1.3-6.7) K/mm3 Absolute Nucleated RBC (0.0-0.012) K/mm3 Nucleated RBC % (0.0-0.2) % PT (11.1-14.7) Seconds INR APTT (22.3-36.8) Seconds Sodium Potassium Chloride Carbon Dioxide Anion Gap BUN Creatinine Estim Creat Clear Calc Estimated GFR Glucose POC Capillary Glucose 81 (65-105) mg/dl Calcium Phosphorus (2.5-4.5) mg/dL Magnesium (1.6-2.3) mg/dL Total Bilirubin AST ALT Alkaline Phosphatase Total Creatine Kinase (30-135) U/L Troponin I (0.000-0.034) ng/mL Total Protein Albumin Vitamin B12 (239-931) pg/mL Folate (2.76->20) ng/mL TSH Thyroxine (T4) (5.53-11.0) ug/dL Free T3 pg/mL (2.32-6.09) pg/mL Urine Color Yellow (Yellow) Urine Appearance Clear (Clear) Urine pH 7.5 (5.0-9.0) Ur Specific Waterproof 1.009 (1.001-1.035) Urine Protein Negative (Negative) mg/dL Urine Glucose (UA) Negative (Negative) mg/dL Urine Ketones Negative (Negative) mg/dL Ur Blood (Man) Negative (Negative) Urine Nitrate Negative (Negative) Urine Bilirubin Negative (Negative) Urine Urobilinogen 0.2 (<2.0) mg/dL Leukocyte Esterase Rfl Negative (Negative) PERFECTO/UL POC Urine HCG, Qual Negative (Negative) Urine Opiates Screen Negative (Negative) Urine Methadone Screen Negative (Negative) Ur Barbiturates Screen Negative (Negative) Ur Phencyclidine Scrn Negative (Negative) Ur Amphetamine Screen Negative (Negative) U Benzodiazepines Scrn Negative (Negative) Urine Cocaine Screen Negative (Negative) U Cannabinoids Screen Positive A (Negative) Influenza A (RT-PCR) Negative (Negative) Influenza B (RT-PCR) Negative (Negative) RSV (RT-PCR) Negative (Negative) SARS-CoV-2 RNA (RT-PCR) Negative (Negative) <Erinn Diaz MD - Last Filed: 07/12/24 23:50> ECG Data EKG #1: Attestation: I personally reviewed and interpreted this ECG as follows: < Erinn Diaz MD - Last Filed: 07/12/24 23:50> ECG completion date: 07/11/24 <Erinn Diaz MD - Last Filed: 07/12/24 23:50> ECG completion time: 20:39 <Erinn Diaz MD - Last Filed: 07/12/24 23:50> Interpretation: Sinus bradycardia rate of 54 beats per minute. [place] interval 170. QRS 102. QT/QTC 403/388. Good R-wave progression across the precordial leads. T-wave inversion isolated to lead 3 , upright in II, biphasic in aVF. No other T-wave inversions. <Erinn Diaz MD - Last Filed: 07/12/24 23:50> Discharge Plan Discharge Clinical Impression: Marijuana use, Fatigue <Merissa Phoenix APRN - Last Filed: 07/11/24 18:37> Patient Disposition: Home <Merissa Phoenix APRN - Last Filed: 07/11/24 18:37> Condition: Stable <Merissa Phoenix APRN - Last Filed: 07/11/24 18:37> Instructions: Antibiotic Form, Cannabis Use Disorder (ED), Fatigue (ED) <Merissa Phoenix APRN - Last Filed: 07/11/24 18:37> Additional Instructions: Your calcium was 9.0 which corrects (negatively) to 8.4 given your albumin. This is still normal. 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 If you want to follow up on obtaining an ionized calcium (a send out lab here), an order has been placed with the results to be sent to your PCP. You are being Provided a copy of the imaging reports and labs that were obtained on 07/08/2024. You can use the portal in the future. Follow-up with your primary care physician. <Merissa Phoenix APRN - Last Filed: 07/11/24 18:37> Patient Language: Welsh <Merissa Phoenix APRN - Last Filed: 07/11/24 18:37> Prescriptions: No Action levothyroxine 25 mcg tablet 25 mcg PO DAILY levothyroxine 200 mcg tablet 200 mcg PO DAILY olanzapine 7.5 mg tablet 7.5 mg PO QPM sertraline 100 mg tablet 100 mg PO Q24H amlodipine 10 mg tablet 10 mg PO DAILY atenolol 50 mg tablet 50 mg PO Q24H naproxen 500 mg tablet 500 mg PO Q8H hydrocodone-acetaminophen 5-325 mg tablet 1 tablet PO Q4H PRN (Reason: pain) Qty: 20 0RF azithromycin 250 mg tablet See Rx Instructions .ROUTE .COMPLEX Qty: 6 0RF Rx Instructions: For 250 mg dose pack: take 500 mg today (day 1), then 250 mg for 4 days (days 2-5) <Merissa Phoenix APRN - Last Filed: 07/11/24 18:37> Other Ambulatory Orders: Ionized Calcium (Routine) Timeframe: 20240714 Location: Determined by Patient Ordered By: Erinn Diaz <Merissa Phoenix APRN - Last Filed: 07/11/24 18:37> Follow-up/Referrals: Marilyn,MD Garrett [Primary Care Provider] - <Merissa Phoenix APRN - Last Filed: 07/11/24 18:37> Stand Alone Forms: Work/School Release IP <Merissa Phoenix APRN - Last Filed: 07/11/24 18:37> Time of Disposition: 22:19 <Merissa Phoenix APRN - Last Filed: 07/11/24 18:37> 22:19 <Erinn Diaz MD - Last Filed: 07/12/24 23:50>
[2024-07-11 18:50] LABS: Basophils Absolute Auto 0.1 K/mm3 (0.0-0.1); Basophils Percent Auto 0.7 % (0.2-1.2); Eosinophils Absolute Auto 0.2 K/mm3 (0-0.3); Eosinophils Percent Auto 1.5 % (0-4.4); Hematocrit 46.4 % (37.0-47.0); Hemoglobin 15.4 g/dL (12.0-15.0); Immature Granulocyte Absolute 0.04 K/mm3 (0.00-0.031); Immature Granulocyte Percent A 0.4 % (0-0.5); Lymphocytes Absolute Auto 2.15 K/mm3 (0.9-3.2); Lymphocytes Percent Auto 21.6 % (18.3-44.2); Mean Corpuscular HGB Conc 33.2 g/dl (32-36); Mean Corpuscular Hemoglobin 31.6 pg (26-34); Mean Corpuscular Volume 95.1 fl (80-100); Mean Platelet Volume 9.3 fl (7.4-10.4); Monocytes Absolute Auto 1.1 K/mm3 (0.1-0.6); Monocytes Percent Auto 10.6 % (2.6-8.5); Neutrophils Absolute Auto 6.5 K/mm3 (1.3-6.7); Neutrophils Percent Auto 65.2 % (45.5-73.1); Platelet Count Result 474 k/mm3 (150-375); Red Blood Count 4.88 M/mm3 (4.2-5.4); Red Cell Distribution Width 12.4 % (11.5-14.5)
[2024-07-11 19:03] LABS: Alanine Aminotransferase 39 U/L (6-35); Albumin Level 4.7 g/dL (3.5-5.1); Alkaline Phosphatase 45 U/L (38-126); Anion Gap 10 mmol/L (4-12); Aspartate Amino Transferase 37 U/L (14-36); Bilirubin,Total 1.1 mg/dL (0.2-1.3); Blood Urea Nitrogen 9 mg/dL (7-17); Carbon Dioxide 29 mmol/L (22-30); Chloride 102 mmol/L (98-107); Estimated CRCL calculation 136 ml/min; Estimated Glomerular Filt Rate > 60; Glucose 104 mg/dL (65-110); Potassium 4.3 mmol/L (3.4-5.0); Sodium 141 mmol/L (137-145)
[2024-07-11 19:09] LABS: INR 0.9; Prothrombin Time 12.9 Seconds (11.1-14.7)
[2024-07-11 19:18] LABS: Partial Thromboplastin Time 23.5 Seconds (22.3-36.8)
[2024-07-11 19:20] LABS: Troponin I < 0.012 ng/mL (0.000-0.034)
--- OUTSIDE RECORDS SUMMARY | 2024-07-11 19:58 | XMS_ITS | Clinical Summary ---
Author Organization [facility] [employer] Address [address] [place] [address] Care Team Providers Care Battery Charger Name Role Phone Berkley De La Paz MD Primary Care Provider [phone] Berkley De La Paz MD Unavailable [phone] [facility],non-owned Affiliates and Associated Physician Practices is amultiple site organization consisting of ambulatory clinics and hospital sitesin [place], [place], [place] and [place]. This disclosure is being madepursuant to the Care Everywhere program and may not contain all information available regarding this patient. Last updated 17.[facility] Allergies Active Allergy Reactions Criticality Noted [...] age to complete this topic Care Teams Battery Charger Relationship Specialty Start Date End Date Berkley De La Paz MD [address] [place] [address] PCP - General 04/11/18 Berkley De La Paz MD [address] [phone] Pediatrics 04/11/18
--- OUTSIDE RECORDS SUMMARY | 2024-07-11 19:58 | XMS_ITS | Clinical Summary ---
Author Organization [facility] Address [address] [place] [address] Care Team Providers Care Labor Relations Worker Name Role Phone Garrett Sanders MD Primary Care Provider [phone] Allergies Active Allergy Reactions Criticality Noted Date [...] 02/14/2023 Assessment & Plan (02/14/2023 2:58 PM BILLING CLERK): Warm compresses every 4-6 hours for 5-10 minutes Frequent handwashing, lid massage Doxycycline po 100 mg BID x 7 days. Sunscreen use advised. Topical erythromycin ER for worsening, pain, streaking redness, worsening swelling, vision impairment Upper respiratory tract infection 02/14/2023 Assessment & Plan (02/14/2023 2:59 PM BILLING CLERK): Rapid strep negative Rapid covid, flu negative [...] 5pm. Assessment & Plan (04/19/2023 12:26 PM BILLING CLERK): Recommended aggressive Lifestyle modification and weight loss [...] 08/30/2021 Assessment & Plan (03/12/2023 3:27 PM BILLING CLERK): Continue current levothyroxine dose. Will check thyroid function test and adjust levothyroxine dose accordingly. TSH goal lower normal Assessment & Plan (02/13/2022 2:37 PM BILLING CLERK): Continue current levothyroxine dose. Will check thyroid function test and adjust levothyroxine dose accordingly. 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 Biochemical evaluation with thyroid tumor markers. We will also obtain neck ultrasound for evaluation of the neck. If above are in acceptable range, will plan follow-up on yearly basis Assessment & Plan (02/13/2022 2:38 PM BILLING CLERK): No evidence of tumor recurrence on biochemical [...] Encounter for STD screening;Recorded Elsewhere: No Location: [facility] Source: EHR Chronic: N Practice ID: [id number] Billable Time: 01:15:00 PM Contraceptive management 04/23/2018 Overview (04/19/2023): Encounter for routine checking of intrauterine contraceptive device;Recorded Elsewhere: No Location: [facility] Source: EHR Chronic: N Practice ID: [id number] Billable Time: 09:45:00 AM Pelvic and perineal pain 02/27/2018 Overview (04/19/2023): Pelvic and perineal pain;Recorded Elsewhere: No Location: [facility] Source: EHR Chronic: N Practice ID: [id number] Billable Time: 11:00:00 AM Menstrual cycle disorder 05/19/2015 Overview (04/19/2023): Menometrorrhagia;Recorded Elsewhere: No Location: [facility] Source: EHR Chronic: N Practice ID: [id number] Billable Time: 10:30:00 AM Irregular menses 01/09/2015 Resolved Problems Problem Noted Date Diagnosed Date Resolved Date Abscess of left thigh 06/14/20222022 Hypoglycemia 02/13/2022 01/29/2023 Assessment & Plan (02/13/2022 2:39 PM BILLING CLERK): No documented low blood sugar Advised BG monitoring with symptoms to establish correlation & inform further work up Positive FLORENCIO (antinuclear antibody) 10/14/2021 01/29/2023 Rash 09/20/2021 01/29/2023 Sore throat 09/20/2021 01/29/2023 Infectious mononucleosis without complication 09/05/19 22 01/29/2023 Leg mass, left 09/09/2018 01/29/2023 Encounters Date Type Department Care Team Description 07/10/2024 11:45 AM CDT Office Visit [facility] Medical [facility] Family Medicine at [address] [place] [phone] Garrett Sanders MD Chronic constipation (Primary Dx); Post-surgical hypothyroidism; Colitis 07/09/2024 Telephone [facility] Family Medicine at [address] [place] [phone] Garrett Sanders MD Appointment Request 07/08/2024 Telephone [facility] Family Medicine at [address] [place] [address] Garrett Sanders MD 3rd no show letter sent 07/08/24 06/02/2024 Results Follow-Up [facility] Medical [facility] Family Medicine at [address] [place] [address] Garrett Sanders MD 05/28/2024 2:19 PM BILLING CLERK - 05/28/2024 11:59 PM BILLING CLERK Hospital Encounter [facility] [address] [place] [address] Chronic pain of right knee Discharge Disposition: Discharge to home or self care 05/28/2024 2:10 PM BILLING CLERK Lab [facility] [address] [place] [address] Postoperative hypothyroidism 05/28/2024 Results Follow-Up [facility] Family Medicine at [address] [place] [address] Garrett Sanders MD 05/23/2024 Nurse Triage [facility] Family Medicine at [address] [place] [address] Garrett Sanders MD 05/23/2024 Nurse Triage [facility] Family Medicine at [address] [place] [address] Chata Sommer RN 05/22/2024 Telephone [facility] Gastroenterology at [address] [place] [address] Derrek Dangelo MD 05/12/2024 5:53 PM BILLING CLERK - 05/12/2024 6:26 PM BILLING CLERK Emergency [facility] Emergency Department [address] [place] [address] Colitis (Primary Dx) Discharge Disposition: Discharge to home or self care 05/12/2024 Nurse Triage [facility] Family Medicine at [address] [place] [address] Garrett Sanders MD 04/15/2024 10:25 AM BILLING CLERK - 04/15/2024 12:56 PM [facility] Emergency [facility] Emergency Department [address] [place] [address] Discharge Disposition: Left without being seen from [...] on file Legal Sex Female 5:33 AM BILLING CLERK Gender Identity Not on file Sexual Orientation [...] Read Routine (OP Routine) 05/28/2024 2:35 PM BILLING CLERK Chronic pain of right knee T4, FREE Routine 05/28/2024 2:15 PM BILLING CLERK Postoperative hypothyroidism THYROID FUNCTION CASCADE Routine 05/28/2024 2:15 PM BILLING CLERK Postoperative hypothyroidism CTA ABDOMEN PELVIS W WO CONTRAST ED 05/12/2024 5:29 PM BILLING CLERK URINALYSIS AND REFLEX TO MICROSCOPIC AND CULTURE STAT 05/12/2024 5:03 PM BILLING CLERK POCT HCG, URINE Routine 05/12/2024 4:59 PM BILLING CLERK EGFR STAT 05/12/2024 2:20 PM BILLING CLERK DIFFERENTIAL AUTO STAT 05/12/2024 2:2 0 PM BILLING CLERK LIPASE STAT 05/12/2024 2:20 PM BILLING CLERK COMPREHENSIVE METABOLIC PANEL STAT 05/12/2024 2:20 PM BILLING CLERK CBC WITH AUTO DIFFERENTIAL STAT 05/12/2024 2:20 PM BILLING CLERK XR ELBOW RIGHT 3 OR MORE VIEWS ED 04/15/2024 12:01 PM BILLING CLERK XR HUMERUS RIGHT 2 OR MORE VIEWS ED 04/15/2024 11:21 AM BILLING CLERK POCT HCG, URINE Routine 04/15/2024 11:04 AM BILLING CLERK N. GONORRHOEAE/C. TRACHOMATIS AMPLIFICATION STAT 06/13/2022 3:09 PM CDT HEPATITIS PANEL, ACUTE STAT 02/01/2022 7:53 PM CDT from Last 3 Months or Most Recently Relevant to Health Maintenance Results * XR Knee Right 4 or More Views (05/28/2024 2:35 PM BILLING CLERK) Anatomical Region Laterality Modality Lower Extremities, Knee Right Computed Radiography 06/01/2024 7:27 AM BILLING CLERK Narrative 06/01/2024 7:28 AM BILLING CLERK EXAM DESCRIPTION: XR KNEE RIGHT 4 OR [...] by Arik Camacho M.D. T: Report ID: [id number] Reading Location: [id number] Procedure Note Arik Camacho MD - 06/01/2024 [...] by Arik Camacho M.D. T: Report ID: [id number] Reading Location: [id number] Garrett Sanders MD IMG XR PROCEDURES Final Result * (ABNORMAL) Thyroid Function Stone (05/28/2024 2:15 PM BILLING CLERK) Pathologist [facility] TSH 40.70(H) 0.30 - 4.20 mcIUnit/mL Blood 05/28/2024 2:15 PM BILLING CLERK 05/28/2024 2:30 PM BILLING CLERK Garrett Sanders MD LAB BLOOD ORDERABLES Final Resul t AYSE [address] [facility] Department [place] [address] * T4, free (05/28/2024 2:15 PM BILLING CLERK) Free T4 1.03 0.90 - 1.70 ng/dL Blood 05/28/2024 2:15 PM BILLING CLERK 05/28/2024 2:30 PM BILLING CLERK Narrative AYSE CORDERO - 05/28/2024 4:15 PM BILLING CLERK This test was reflexed from a TSH result. us Garrett Sanders MD LAB BLOOD ORDERABLES Final Resul t AYSE CORDERO [address] [facility] Department [place] [address] * CTA Abdomen Pelvis (05/12/2024 5:29 PM BILLING CLERK) Anatomical Region Laterality Modality Body N/A Computed Tomogra phy 05/12/2024 5:33 PM BILLING CLERK Narrative 05/12/2024 5:39 PM BILLING CLERK EXAM DESCRIPTION: CTA ABDOMEN PELVIS REASON FOR [...] Zana Sanders D.O. PS: PS Report ID: [id number] Reading Location: [id number] Procedure Note Zana Sanders, - 05/12/2024 EXAM [...] Zana Sanders D.O. PS: PS Report ID: [id number] Reading Location: [place] [address] [address] PROCEDURES Final Result * Urinalysis reflex to microscopic and culture Urine (05/12/2024 5:03 PM BILLING CLERK) Color, ur Yellow Yellow Comment:Testing performed by : [facility], [address] [place] [address], [place]., [address] Clarity, ur Clear Clear AYSE Comment:Testing performed by : [address] [address] Specific gravity, ur 1.010 1.003 - 1.030 AYSE Comment:Testing performed by : [address], [place]., [address] pH, urine 7.0 AYSE Comment: Interpretive Data U rine pH is affected by diet, medications, systemic acid-base disturbances, and renal tubular function. pH may affect urinary stone formation. For example, urine pH below 6.0 may help reduce the tendency for calcium phosphate stones and pH greater than 6.0 may reduce the tendency for uric acid stone formation. Source: [facility] [employer] Current Interpretive Data was last revised on 2017 Testing performed by: [address] [address] Protein, ur ql Negative Negative AYSE Comment:Testing performed by : [address] [address] Glucose, ur ql Negative Negative AYSE Comment:Testing performed by : [address] [address] Ketones, ur Negative Negative AYSE Comment:Testing performed by : [address] [address] Bilirubin, ur Negative Negative AYSE Comment:Testing performed by : [address] [address] Blood, ur Negative Negative AYSE Comment:Testing performed by : [address] [address] Urobilinogen, ur <2.0 <2.0 mg/dL AYSE Comment:Testing performed by : [address] [address] Nitrite, ur Negative Negative AYSE Comment:Testing performed by : [address] [address] Leukocyte esterase, ur Negative Negative AYSE Comment:Testing performed by : [address] [address] UA reflex comment Reflex conditions for microscopic UA and culture not met. AYSE Comment:Testing performed by : [facility], [address] [place] [address]., [address] Urine 05/12/2024 5:03 PM BILLING CLERK 05/12/2024 5:10 PM BILLING CLERK Clifton Cain DO LAB MICROBIOLOGY - GENERAL ORDERABLES Final Result AYSE [address] [facility] Department [place] [address] * POCT hCG, urine (05/12/2024 4:59 PM BILLING CLERK) HCG, ur, POC Negative Negative Lot Number [id number] QC Backgroud Clear Acceptable QC Control Line Acceptable Urine 05/12/2024 4:59 PM BILLING CLERK Clifton Cain DO POINT OF CARE TEST ORDERABL ES Final Result * eGFR (05/12/2024 2:20 PM BILLING CLERK) eGFR 77 >=60 mL/min/1. 73 m2 Comment: [...] was last reviewed 2021. Testing performed by: [facility], [address] [place] [address]., [address] Blood 05/12/2024 2:20 PM BILLING CLERK 05/12/2024 2:28 PM BILLING CLERK us Clifton Cain DO LAB BLOOD ORDERABLES Final Result AYSE [address] [facility] Department [place] [address] * (ABNORMAL) Differential, auto (05/12/2024 2:20 PM BILLING CLERK) Neutrophil abs 5.4 1.5 - 6.5 K/cumm Comment:Testing performed by : [address] [address] Imm gran abs 0.0 0.0 - 0.1 K/cumm AYSE Comment:Testing performed by : [address] [address] Lymphocyte abs 2.0 0.8 - 3.3 K/cumm AYSE Comment:Testing performed by : [address] [address] Monocyte abs 1.0(H) 0.2 - 0.8 K/cumm AYSE Comment:Testing performed by : [address] [address] Eosinophil abs 0.1 0.0 - 0.5 K/cumm AYSE Comment:Testing performed by : [address] [address] Basophil abs 0.1 0.0 - 0.1 K/cumm AYSE Comment:Testing performed by : [address] [address] Neutrophil pct 62.9 % AYSE Comment: Interpretive Data Percent cell count reference ranges are not reported, since discordance with absolute values may lead to misinterpretation of CBC data. Current Interpretive Data was last revised on 2017. Testing performed by: [address] [address] Imm gran pct 0.2 % AYSE Comment: Interpretive Data Percent cell count reference ranges are not reported, since discordance with absolute values may lead to misinterpretation of CBC data. Current Interpretive Data was last revised on 2017. Testing performed by: [address] [address] Lymphocyte pct 23.4 % [facility] Comment: Interpretive Data Percent cell count reference ranges are not reported, since discordance with absolute values may lead to misinterpretation of CBC data. Current Interpretive Data was last revised on 2017. Testing performed by: [address] [address] Monocyte pct 11.3 % [facility] Comment: Interpretive Data Percent cell count reference ranges are not reported, since discordance with absolute values may lead to misinterpretation of CBC data. Current Interpretive Data was last revised on 2017. Testing performed by: [address] [address] Eosinophil pct 1.5 % [facility] Comment: Interpretive Data Percent cell count reference ranges are not reported, since discordance with absolute values may lead to misinterpretation of CBC data. Current Interpretive Data was last revised on 2017. Testing performed by: [address] [address] Basophil pct 0.7 % [facility] Comment: Interpretive Data Percent cell count reference ranges are not reported, since discordance with absolute values may lead to misinterpretation of CBC data. Current Interpretive Data was last revised on 2017. Testing performed by: [address] [address] Blood 05/12/2024 2:20 PM BILLING CLERK 05/12/2024 2:28 PM BILLING CLERK us Clifton Cain DO LAB BLOOD ORDERABLES Final Result AYSE [address] [facility] Department [place] [address] * (ABNORMAL) CBC with auto differential (05/12/2024 2:20 PM BILLING CLERK) [facility] WBC 8.7 3.8 - 9.9 K/cumm Comment:Testing performed by : [address] [address] Hgb 15.5 11.9 - 15.5 g/dL AYSE Comment:Testing performed by : [address], [address] Hct 45.8(H) 35.6 - 45.5 % AYSE Comment:Testing performed by : [address] [address] Plt 416(H) 150 - 400 K/cumm AYSE Comment:Testing performed by : [address] [address] MPV 10.1 9.1 - 12.3 fL AYSE Comment:Testing performed by : [address], [address] RBC 4.82 3.90 - 5.20 M/cumm AYSE Comment:Testing performed by : [address], [address] MCV 95.0 81.3 - 96.4 fL AYSE Comment:Testing performed by : [address] [address] MCH 32.2 27.1 - 33.3 pg AYSE Comment:Testing performed by : [address], [address] MCHC 33.8 32.3 - 35.7 g/dL AYSE Comment:Testing performed by : [address], [address] RDW CV 13.4 11.1 - 14.9 % AYSE Comment:Testing performed by : [address], [address] RDW SD 47.4 35.7 - 48.1 fL AYSE Comment:Testing performed by : [address], [address] NRBC abs 0.00 0.00 - 0.01 K/cumm AYSE Comment:Testing performed by : [address] [address] Blood Venous blood specimen / Unknown 05/12/2024 2:20 PM BILLING CLERK 05/12/2024 2:28 PM BILLING CLERK Clifton Cain DO LAB BLOOD ORDERABLES Final Result AYSE [address] [address] * Lipase (05/12/2024 2:20 PM BILLING CLERK) Pathologist [facility] Lipase 24 10 - 99 Units/L Comment:Testing performed by : [address] [address] Blood Venous blood specimen / Unknown 05/12/2024 2:20 PM BILLING CLERK 05/12/2024 2:28 PM BILLING CLERK Clifton Cain LAB BLOOD ORDERABLES Final Result Performing Organization Address [facility] Co de Phone Number AYSE [address] [address] * Comprehensive metabolic panel (05/12/2024 2:20 PM BILLING CLERK) [facility] Sodium 137 135 - 145 mmol/L Comment:Testing performed by : [address] [address] Potassium, pl 4.0 3.3 - 4.9 mmol/L AYSE Comment:Testing performed by : [address] [address] Chloride 101 97 - 110 mmol/L AYSE Comment:Testing performed by : [address] [address] CO2 23 22 - 32 mmol/L AYSE Comment:Testing performed by : [address] [address] Anion gap 13 2 - 15 mmol/L AYSE Comment:Testing performed by : [address] [address] BUN 7 6 - 25 mg/dL AYSE Comment:Testing performed by : [address] [address] Creatinine 1.05 0.60 - 1.10 mg/dL AYSE Comment:Testing performed by : [address] [address] Glucose 121 70 - 199 mg/dL AYSE [...] was last revised 2022. Testing performed by: [address] [address] Calcium 9.2 8.5 - 10.3 mg/dL AYSE Comment:Testing performed by : [address] [address] Bilirubin, total 1.0 0.1 - 1.2 mg/dL [facility] Comment:Testing performed by : [address] [address] Protein, pl 7.9 6.5 - 8.5 g/dL [facility] Comment:Testing performed by : [address] [address] Albumin 4.6 3.5 - 5.0 g/dL [facility] Comment:Testing performed by : [address] [address] Alk phos 52 40 - 130 Units/L [facility] Comment:Testing performed by : [address] [address] ALT 18 7 - 45 Units/L [facility] Comment:Testing performed by : [address] [address] AST 25 10 - 45 Units/L AYSE Comment:Testing performed by : [address] [address] Blood 05/12/2024 2:20 PM BILLING CLERK 05/12/2024 2:28 PM BILLING CLERK Clifton Choueg DO LAB BLOOD ORDERABLES Final Result AYSE [address] [facility] Department [place] [address] * XR Elbow Right 3+ views (04/15/2024 12:01 PM BILLING CLERK) Anatomical Region Laterality Modality Upper Extremities, Elbow Right Compute d Radiography 04/15/2024 12:1 0 PM BILLING CLERK Narrative 04/15/2024 12:12 PM BILLING CLERK EXAM DESCRIPTION: XR ELBOW RIGHT 3 OR [...] by Ric Nixon M.D. CH: Report ID: [id number] Reading Location: [id number] Procedure Note Ric Nixon Jr., MD - [...] by Ric Nixon M.D. CH: Report ID: [id number] Reading Location: [id number] [facility] CALIX IMG XR PROCEDURES Final Result * XR Humerus Right (04/15/2024 11:21 AM BILLING CLERK) Anatomical Region Laterality Modality Upper Extremities, Upper Arm Right Com puted Radiography 04/15/2024 11:4 6 AM BILLING CLERK Narrative 04/15/2024 11:47 AM BILLING CLERK EXAM DESCRIPTION: XR HUMERUS RIGHT 2 OR [...] Zana Sanders D.O. PS: PS Report ID: [id number] Reading Location: [id number] Procedure Note Zana Sanders, - 04/15/2024 EXAM [...] Zana Sanders D.O. PS: PS Report ID: [id number] Reading Location: [id number] [facility] IM[facility] XR PROCEDURES Final Result * POCT hCG, urine (04/15/2024 11:04 AM BILLING CLERK) [facility] HCG, ur, POC Negative Negative Lot Number [id number] QC Backgroud Clear Acceptable QC Control Line Acceptable Urine 04/15/2024 11:0 4 AM BILLING CLERK [facility] POINT OF CARE TEST ORDERABLES F inal Result * N. gonorrhoeae/C. trachomatis Amplification Urine (06/13/2022 3:09 PM CDT) [facility] C. trachomatis Not Detected Not Detected AYSE CORDERO Comment:Testing performed by : [facility], [address] [place] [address]., [address] N. gonorrhoeae Not Detected Not Detected AYSE CORDERO Comment: Interpretive Data Testing performed by the [facility]. This assay detects Chlamydia trachomatis and Neisseria gonorrhoeae by nucleic acid amplification testing (NAAT). This test is approved by the [facility] Food and Drug Administration and the performance characteristics have been verified by the laboratory. The performance characteristics of this test have not been evaluated in individuals less than 14 years of age. Current Interpretive Data was last revised on 2019. Testing performed by: [facility], [address] [place] [address]., [address] Urine (None) 06/13/2022 3:09 PM CDT 06/13/2022 4:09 PM CDT Maria Teresa OLIVA LAB MICROBIOLOGY - GENERAL ORDER SADIA Final Result AYSE [address] [facility] Department [place] [address] * Hepatitis panel, acute (02/01/2022 7:53 PM CDT) [facility] Hep A IgM Nonreactive Nonreactive AYSE [...] Tucker DO LAB MICROBIOLOGY - GENERAL [facility] Final Result AYSE [address] [facility] Department of Laboratories [place], [place] [id number] from Last 3 Months or Most Recently Relevant to Health Maintenance Insurance [facility] Care Teams Labor Relations Worker Relationship Specialty Start Date End Date Garrett Sanders MD [address] [place] [address] PCP - General Family Medicine 04/09/23
--- OUTSIDE RECORDS SUMMARY | 2024-07-11 19:58 | XMS_ITS | Clinical Summary ---
Author Organization [facility] Address [address] [place] [address] Phone Care Team Providers Care Surface Grinding Machine Hand Name Role Phone Giancarlo Yeh MD Primary Care Provider [phone] Allergies Active Allergy Reactions Criticality Noted Date [...] on file Legal Sex Female 3:42 PM POST DOCTORAL FELLOW Gender Identity Not on file Sexual Orientation [...] 12/30/2002, 05/08/2001, 03/12/2001, Additional history exists Insurance [facility] [employer] Advance Directives For more information, please contact: [phone] * Default Full Code - Needs Discussion (Latest Code Status on File) Date Activated Date Inactivated Comments 09/04/2021 8:56 AM 09/04/2021 2:27 PM * Full Code Date Activated Date Inactivated Comments 05/13/2018 1:26 PM 05/14/2018 11:46 AM Care Teams Surface Grinding Machine Hand Relationship Specialty Start Date End Date Giancarlo Yeh MD PCP - General Family Practice 09/03/21
--- OUTSIDE RECORDS SUMMARY | 2024-07-11 19:58 | XMS_ITS | Encounter Summary ---
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 HOUSE PRODUCTION WORKER documented in this encounter Plan of Treatment Not on file documented as of this encounter Visit Diagnoses Not on filedocumented in this encounter Care Teams Workers Compensation Attorney Relationship Specialty Start Date End Date Garrett Sanders MD [address] [facility] [address] [place] [address] [place] [id number] PCP - General Family Medicine 04/09/23 documented as of this encounter
--- OUTSIDE RECORDS SUMMARY | 2024-07-11 19:58 | XMS_ITS | Clinical Summary ---
Author Organization [facility] Address [facility] [place] [address] Care Team Providers Care Precision Jig Grinder Name Role Phone Tamra Moran NP Primary Care Provider [phone] Allergies Active Allergy Reactions Criticality Noted Date [...] Noted Date Diagnosed Date Papillary thyroid carcinoma ([facility]/HCC HHS/HCC) Immunizations Name Administration Dates Next [...] Sex Assigned at Female 02/16/2021 2:40 PM ELECTRICAL CONTROLS ENGINEER Legal Sex Female 6:24 PM CDT Gender Identity Female 02/16/2021 2:40 PM ELECTRICAL CONTROLS ENGINEER Sexual Orientation Straight 02/16/2021 2: 40 PM ELECTRICAL CONTROLS ENGINEER Last Filed Vital Signs Vital Sign Reading Time Taken Comments Blood Pressure 146/83 04/11/2021 1:09 PM ELECTRICAL CONTROLS ENGINEER Pulse 87 04/11/2021 1:09 PM ELECTRICAL CONTROLS ENGINEER Temperature 36.2 C (97.1 F) 04/11/2021 1:09 PM ELECTRICAL CONTROLS ENGINEER Respiratory Rate 18 04/11/2021 1:09 PM ELECTRICAL CONTROLS ENGINEER Oxygen Saturation 98% 04/11/2021 1:09 PM ELECTRICAL CONTROLS ENGINEER Inhaled Oxygen Concentration - - Weight 108.9 kg (240 lb) 04/11/2021 1:09 PM ELECTRICAL CONTROLS ENGINEER Height 175.3 cm (5' 9 ) 04/11/2021 1:09 PM ELECTRICAL CONTROLS ENGINEER Body Mass Index 35.44 04/11/2021 1:09 PM ELECTRICAL CONTROLS ENGINEER Plan of Treatment Health Maintenance Due Date [...] COVID-19 Vaccine ( season) 2023 PHQ-2 (Physician [place]) 04/02/2024 DTaP, Tdap and Td Vaccines (8 [...] VE NON-REACTI VE 01/21/2021 5:16 PM CDT [facility] 01/21/2021 3:03 PM CDT us Tamra Moran [facility] Final Result [facility] [address] [place] [address], [place] [phone] from Last 3 Months or Most Recently Relevant to Health Maintenance [place] Care Teams Precision Jig Grinder Relationship Specialty Start Date End Date Tamra Moran NP [address] [place] [address] PCP - General Nurse Practitioner Family 01/14/21
--- OUTSIDE RECORDS SUMMARY | 2024-07-11 19:58 | XMS_ITS | Encounter Summary ---
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 Gender Identity Not on file Sexual Orientation Not on file documented as of this encounter Plan of Treatment Not on file documented as of this encounter Visit Diagnoses Not on filedocumented in this encounter Additional Health Concerns Infection Onset Date Last Indicated Resolved Time COVID: Suspected 02/14/2023 02/14/2023 02/14/2023 2:34 PM 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
--- OUTSIDE RECORDS SUMMARY | 2024-07-11 19:58 | XMS_ITS | Encounter Summary ---
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 Gender Identity Not on file Sexual Orientation Not on file documented as of this encounter Plan of Treatment Not on file documented as of this encounter Visit Diagnoses Not on filedocumented in this encounter Additional Health Concerns Infection Onset Date Last Indicated Resolved Time COVID: Suspected 02/14/2023 02/14/2023 02/14/2023 2:34 PM 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
--- OUTSIDE RECORDS SUMMARY | 2024-07-11 19:58 | XMS_ITS | Encounter Summary ---
Author Organization [facility] Healthcare Address [address] [place] [address] Care Team Providers Care Refrigerator Assembler Name Role Phone Garrett Sanders MD Primary Care Provider Reason for Referral * Consultation (Routine) - Authorized Specialty Diagnoses / Procedures Referred By Contac t Referred To Contact Endocrinology Diagnoses Post-surgical hypothyroidism Garrett Sanders MD [address] [place] [id number] Phone: tel: fax: [facility] End[facility] [address] [place] [phone] Phone: tel: fax: Referral ID Status Reason Start Date Expiration Date Visits Requested Visits Authorized [id number] Authorized Specialty Services Required 07/10/2024 08/09/2025 1 1 Question Answer Please select the performing region: [facility] [[id number]] Please select the performing department: [facility] EDW [[id number]] # of visits: 1 Reason for Visit * Reason Comments ER 05/12/24 MHE <9>Colitis Encounter Details Date Type Department Care Team (Late st Contact Info) Description 07/10/2024 11:45 AM CDT Office Visit [facility] Family Medicine at [address] [phone] Garrett Sanders MD [address] [place] [address] [address] [place] [phone] Chronic constipation (Primary Dx); Post-surgical hypothyroidism; Colitis [...] on file 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
--- OUTSIDE RECORDS SUMMARY | 2024-07-11 19:58 | XMS_ITS | Encounter Summary ---
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
--- OUTSIDE RECORDS SUMMARY | 2024-07-11 19:58 | XMS_ITS | Referral Summary ---
Author Organization [facility] Address [address] [place] [address] Care Team Providers Care Project Manager/Team Coach Name Role Phone Garrett Sanders MD Primary Care Provider [phone] Encounters Date Type Department Care Team Description 07/10/2024 11:45 AM CDT Office Visit [facility] Family Medicine at [address] [place] [address] Garrett Sanders MD Chronic constipation (Primary Dx); Post-surgical hypothyroidism; Colitis 07/09/2024 Telephone [facility] Family Medicine at [address] [place] [address] Garrett Sanders MD Appointment Request 07/08/2024 Telephone [facility] Medical [facility] Family Medicine at [address] [place] [address] Garrett Sanders MD 3rd no show letter sent 07/08/24 06/02/2024 Results Follow-Up [facility] Medical [facility] Family Medicine at [address] [place] [address] Garrett Sanders MD 05/28/2024 Results Follow-Up [facility] Medical [facility] Family Medicine at [address] [place] [address] Garrett Sanders MD 05/28/2024 2:19 PM WIRE COMMUNICATIONS ENGINEER - 05/28/2024 11:59 PM WIRE COMMUNICATIONS ENGINEER Hospital Encounter [facility] Diagnostic Imaging [address] [place] [address] Chronic pain of right knee Discharge Disposition: Discharge to home or self care 05/28/2024 2:10 PM [facility] Lab [facility] Lab [address] [place] [address] Postoperative hypothyroidism 05/23/2024 Nurse Triage [facility] Family Medicine at [address] [place] [address] Garrett Sanders MD 05/23/2024 Nurse Triage [facility] Medicine at [address] [place] [address] Chata Sommer RN 05/22/2024 Telephone [facility] Gastroenterology at [address] [place] [address] Derrek Dangelo MD 05/12/2024 5:53 PM [facility] - 05/12/2024 6:26 PM [facility] Emergency [facility] Emergency Department [address] [place] [address] Colitis (Primary Dx) Discharge Disposition: Discharge to home or self care 05/12/2024 Nurse Triage [facility] Family Medicine at [address] [place] [address] Garrett Sanders MD 04/15/2024 10:25 AM WIRE COMMUNICATIONS ENGINEER - 04/15/2024 12:56 PM [facility] Emergency [facility] Emergency Department [address] [place] [address] Discharge Disposition: Left without being seen from [...] 02/14/2023 Assessment & Plan (02/14/2023 2:58 PM WIRE COMMUNICATIONS ENGINEER): Warm compresses every 4-6 hours for 5-10 minutes Frequent handwashing, lid massage Doxycycline po 100 mg BID x 7 days. Sunscreen use advised. Topical erythromycin ER for worsening, pain, streaking redness, worsening swelling, vision impairment Upper respiratory tract infection 02/14/2023 Assessment & Plan (02/14/2023 2:59 PM WIRE COMMUNICATIONS ENGINEER): Rapid strep negative Rapid covid, flu negative [...] 5pm. Assessment & Plan (04/19/2023 12:26 PM WIRE COMMUNICATIONS ENGINEER): Recommended aggressive Lifestyle modification and weight loss [...] 08/30/2021 Assessment & Plan (03/12/2023 3:27 PM WIRE COMMUNICATIONS ENGINEER): Continue current levothyroxine dose. Will check thyroid function test and adjust levothyroxine dose accordingly. TSH goal lower normal Assessment & Plan (02/13/2022 2:37 PM WIRE COMMUNICATIONS ENGINEER): Continue current levothyroxine dose. Will check thyroid function test and adjust levothyroxine dose accordingly. 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 Biochemical evaluation with thyroid tumor markers. We will also obtain neck ultrasound for evaluation of the neck. If above are in acceptable range, will plan follow-up on yearly basis Assessment & Plan (02/13/2022 2:38 PM WIRE COMMUNICATIONS ENGINEER): No evidence of tumor recurrence on biochemical [...] Encounter for STD screening;Recorded Elsewhere: No Location: [facility] Source: EHR Chronic: N Practice ID: [id number] Billable Time: 01:15:00 PM Contraceptive management 04/23/2018 Overview (04/19/2023): Encounter for routine checking of intrauterine contraceptive device;Recorded Elsewhere: No Location: [facility] Source: EHR Chronic: N Practice ID: [id number] Billable Time: 09:45:00 AM Pelvic and perineal pain 02/27/2018 Overview (04/19/2023): Pelvic and perineal pain;Recorded Elsewhere: No Location: [facility] Source: EHR Chronic: N Practice ID: [id number] Billable Time: 11:00:00 AM Menstrual cycle disorder 05/19/2015 Overview (04/19/2023): Menometrorrhagia;Recorded Elsewhere: No Location: [facility] Source: EHR Chronic: N Practice ID: [id number] Billable Time: 10:30:00 AM Irregular menses 01/09/2015 Resolved Problems Problem Noted Date Diagnosed Date Resolved Date Abscess of left thigh 06/14/20222022 Hypoglycemia 02/13/2022 01/29/2023 Assessment & Plan (02/13/2022 2:39 PM WIRE COMMUNICATIONS ENGINEER): No documented low blood sugar Advised BG [...] on file Legal Sex Female 5:33 AM WIRE COMMUNICATIONS ENGINEER Gender Identity Not on file Sexual Orientation [...] Read Routine (OP Routine) 05/28/2024 2:35 PM WIRE COMMUNICATIONS ENGINEER Chronic pain of right knee T4, FREE Routine 05/28/2024 2:15 PM WIRE COMMUNICATIONS ENGINEER Postoperative hypothyroidism THYROID FUNCTION CASCADE Routine 05/28/2024 2:15 PM WIRE COMMUNICATIONS ENGINEER Postoperative hypothyroidism CTA ABDOMEN PELVIS W WO CONTRAST ED 05/12/2024 5:29 PM WIRE COMMUNICATIONS ENGINEER URINALYSIS AND REFLEX TO MICROSCOPIC AND CULTURE STAT 05/12/2024 5:03 PM WIRE COMMUNICATIONS ENGINEER POCT HCG, URINE Routine 05/12/2024 4:59 PM WIRE COMMUNICATIONS ENGINEER EGFR STAT 05/12/2024 2:20 PM WIRE COMMUNICATIONS ENGINEER DIFFERENTIAL AUTO STAT 05/12/2024 2:2 0 PM WIRE COMMUNICATIONS ENGINEER LIPASE STAT 05/12/2024 2:20 PM WIRE COMMUNICATIONS ENGINEER COMPREHENSIVE METABOLIC PANEL STAT 05/12/2024 2:20 PM WIRE COMMUNICATIONS ENGINEER CBC WITH AUTO DIFFERENTIAL STAT 05/12/2024 2:20 PM WIRE COMMUNICATIONS ENGINEER XR ELBOW RIGHT 3 OR MORE VIEWS ED 04/15/2024 12:01 PM WIRE COMMUNICATIONS ENGINEER XR HUMERUS RIGHT 2 OR MORE VIEWS ED 04/15/2024 11:21 AM WIRE COMMUNICATIONS ENGINEER POCT HCG, URINE Routine 04/15/2024 11:04 AM WIRE COMMUNICATIONS ENGINEER N. GONORRHOEAE/C. TRACHOMATIS AMPLIFICATION STAT 06/13/2022 3:09 PM CDT HEPATITIS PANEL, ACUTE STAT 02/01/2022 7:53 PM CDT from Last 3 Months or Most Recently Relevant to Health Maintenance Results * XR Knee Right 4 or More Views (05/28/2024 2:35 PM WIRE COMMUNICATIONS ENGINEER) Anatomical Region Laterality Modality Lower Extremities, Knee Right Computed Radiography 06/01/2024 7:27 AM WIRE COMMUNICATIONS ENGINEER Narrative 06/01/2024 7:28 AM WIRE COMMUNICATIONS ENGINEER EXAM DESCRIPTION: XR KNEE RIGHT 4 OR [...] by Arik Camacho M.D. T: Report ID: [id number] Reading Location: [id number] Procedure Note Arik Camacho MD - 06/01/2024 [...] by Arik Camacho M.D. T: Report ID: [id number] Reading Location: [place] [address] Garrett Sanders MD IMG XR PROCEDURES Final Result * (ABNORMAL) Thyroid Function [place] (05/28/2024 2:15 PM WIRE COMMUNICATIONS ENGINEER) Pathologist [facility] TSH 40.70(H) 0.30 - 4.20 mcIUnit/mL Blood 05/28/2024 2:15 PM WIRE COMMUNICATIONS ENGINEER 05/28/2024 2:30 PM WIRE COMMUNICATIONS ENGINEER Garrett Sanders MD LAB BLOOD ORDERABLES Final Resul t AYSE [address] [facility] [place] [address] * T4, free (05/28/2024 2:15 PM WIRE COMMUNICATIONS ENGINEER) Free T4 1.03 0.90 - 1.70 ng/dL Blood 05/28/2024 2:15 PM WIRE COMMUNICATIONS ENGINEER 05/28/2024 2:30 PM WIRE COMMUNICATIONS ENGINEER Narrative AYSE CORDERO - 05/28/2024 4:15 PM WIRE COMMUNICATIONS ENGINEER This test was reflexed from a TSH result. us Garrett Sanders MD LAB BLOOD ORDERABLES Final Resul t AYSE [address] [facility] [place] [address] * CTA Abdomen Pelvis (05/12/2024 5:29 PM WIRE COMMUNICATIONS ENGINEER) Anatomical Region Laterality Modality Body N/A Computed Tomogra phy 05/12/2024 5:33 PM WIRE COMMUNICATIONS ENGINEER Narrative 05/12/2024 5:39 PM WIRE COMMUNICATIONS ENGINEER EXAM DESCRIPTION: CTA ABDOMEN PELVIS REASON FOR [...] Zana Sanders D.O. PS: PS Report ID: [id number] Reading Location: [id number] Procedure Note Zana Sanders, DO - 05/12/2024 [...] Zana Sanders D.O. PS: PS Report ID: [id number] Reading Location: [place] [address] PROCEDURES Final Result * Urinalysis reflex to microscopic and culture Urine (05/12/2024 5:03 PM WIRE COMMUNICATIONS ENGINEER) Color, ur Yellow Yellow Comment:Testing performed by : [facility], [address] [place] [address], [place]., [address] Clarity, ur Clear Clear AYSE Comment:Testing performed by : [address] [address] Specific gravity, ur 1.010 1.003 - 1.030 AYSE Comment:Testing performed by : [address], [place]., [address] pH, urine 7.0 AYSE Comment: Interpretive Data U rine pH is affected by diet, medications, systemic acid-base disturbances, and renal tubular function. pH may affect urinary stone formation. For example, urine pH below 6.0 may help reduce the tendency for calcium phosphate stones and pH greater than 6.0 may reduce the tendency for uric acid stone formation. Source: [facility] [employer] Current Interpretive Data was last revised on 2017 Testing performed by: [address] [address] Protein, ur ql Negative Negative AYSE Comment:Testing performed by : [address] [address] Glucose, ur ql Negative Negative AYSE Comment:Testing performed by : [address], [place]., [address] Ketones, ur Negative Negative AYSE Comment:Testing performed by : [address] [address] Bilirubin, ur Negative Negative AYSE Comment:Testing performed by : [address] [address] Blood, ur Negative Negative AYSE Comment:Testing performed by : [address] [address] Urobilinogen, ur <2.0 <2.0 mg/dL AYSE Comment:Testing performed by : [address] [address] Nitrite, ur Negative Negative AYSE Comment:Testing performed by : [address] [address] Leukocyte esterase, ur Negative Negative AYSE Comment:Testing performed by : [address], [place]., [address] UA reflex comment Reflex conditions for microscopic UA and culture not met. AYSE Comment:Testing performed by : [address], [place]., [address] Urine 05/12/2024 5:03 PM WIRE COMMUNICATIONS ENGINEER 05/12/2024 5:10 PM WIRE COMMUNICATIONS ENGINEER Clifton Cain DO LAB MICROBIOLOGY - GENERAL ORDERABLES Final Result AYSE [address] [facility] [place] [address] * POCT hCG, urine (05/12/2024 4:59 PM WIRE COMMUNICATIONS ENGINEER) HCG, ur, POC Negative Negative Lot Number [id number] QC Backgroud Clear Acceptable QC Control Line Acceptable Urine 05/12/2024 4:59 PM WIRE COMMUNICATIONS ENGINEER Clifton Cain DO POINT OF CARE TEST ORDERABL ES Final Result * eGFR (05/12/2024 2:20 PM WIRE COMMUNICATIONS ENGINEER) eGFR 77 >=60 mL/min/1. 73 m2 Comment: [...] was last reviewed 2021. Testing performed by: [facility], [address] [place] [address]., [address] Blood 05/12/2024 2:20 PM WIRE COMMUNICATIONS ENGINEER 05/12/2024 2:28 PM WIRE COMMUNICATIONS ENGINEER us Clifton Cain DO LAB BLOOD ORDERABLES Final Result AYSE [address] [facility] [place] [address] * (ABNORMAL) Differential, auto (05/12/2024 2:20 PM WIRE COMMUNICATIONS ENGINEER) Neutrophil abs 5.4 1.5 - 6.5 K/cumm Comment:Testing performed by : [address] [address] Imm gran abs 0.0 0.0 - 0.1 K/cumm AYSE Comment:Testing performed by : [address] [address] Lymphocyte abs 2.0 0.8 - 3.3 K/cumm AYSE Comment:Testing performed by : [address] [address] Monocyte abs 1.0(H) 0.2 - 0.8 K/cumm AYSE Comment:Testing performed by : [address] [address] Eosinophil abs 0.1 0.0 - 0.5 K/cumm AYSE Comment:Testing performed by : [address] [address] Basophil abs 0.1 0.0 - 0.1 K/cumm AYSE Comment:Testing performed by : [address] [address] Neutrophil pct 62.9 % AYSE Comment: Interpretive Data Percent cell count reference ranges are not reported, since discordance with absolute values may lead to misinterpretation of CBC data. Current Interpretive Data was last revised on 2017. Testing performed by: [address] [address] Imm gran pct 0.2 % AYSE Comment: Interpretive Data Percent cell count reference ranges are not reported, since discordance with absolute values may lead to misinterpretation of CBC data. Current Interpretive Data was last revised on 2017. Testing performed by: [address] [address] Lymphocyte pct 23.4 % [facility] Comment: Interpretive Data Percent cell count reference ranges are not reported, since discordance with absolute values may lead to misinterpretation of CBC data. Current Interpretive Data was last revised on 2017. Testing performed by: [address] [address] Monocyte pct 11.3 % [facility] Comment: Interpretive Data Percent cell count reference ranges are not reported, since discordance with absolute values may lead to misinterpretation of CBC data. Current Interpretive Data was last revised on 2017. Testing performed by: [address] [address] Eosinophil pct 1.5 % [facility] Comment: Interpretive Data Percent cell count reference ranges are not reported, since discordance with absolute values may lead to misinterpretation of CBC data. Current Interpretive Data was last revised on 2017. Testing performed by: [address] [address] Basophil pct 0.7 % [facility] Comment: Interpretive Data Percent cell count reference ranges are not reported, since discordance with absolute values may lead to misinterpretation of CBC data. Current Interpretive Data was last revised on 2017. Testing performed by: [address] [address] Blood 05/12/2024 2:20 PM WIRE COMMUNICATIONS ENGINEER 05/12/2024 2:28 PM WIRE COMMUNICATIONS ENGINEER us Clifton Cain DO LAB BLOOD ORDERABLES Final Result AYSE [address] [facility] [place] [address] * (ABNORMAL) CBC with auto differential (05/12/2024 2:20 PM WIRE COMMUNICATIONS ENGINEER) WBC 8.7 3.8 - 9.9 K/cumm Comment:Testing performed by : [address] [address] Hgb 15.5 11.9 - 15.5 g/dL AYSE Comment:Testing performed by : [address], [address] Hct 45.8(H) 35.6 - 45.5 % AYSE Comment:Testing performed by : [address] [address] Plt 416(H) 150 - 400 K/cumm AYSE Comment:Testing performed by : [address] [address] MPV 10.1 9.1 - 12.3 fL AYSE Comment:Testing performed by : [address], [address] RBC 4.82 3.90 - 5.20 M/cumm AYSE Comment:Testing performed by : [address], [address] MCV 95.0 81.3 - 96.4 fL AYSE Comment:Testing performed by : [address], [address] MCH 32.2 27.1 - 33.3 pg AYSE Comment:Testing performed by : [address], [address] MCHC 33.8 32.3 - 35.7 g/dL AYSE Comment:Testing performed by : [address], [address] RDW CV 13.4 11.1 - 14.9 % AYSE Comment:Testing performed by : [address], [address] RDW SD 47.4 35.7 - 48.1 fL AYSE Comment:Testing performed by : [address], [address] NRBC abs 0.00 0.00 - 0.01 K/cumm AYSE Comment:Testing performed by : [address], [address] Blood Venous blood specimen / Unknown 05/12/2024 2:20 PM WIRE COMMUNICATIONS ENGINEER 05/12/2024 2:28 PM WIRE COMMUNICATIONS ENGINEER Clifton Cain DO LAB BLOOD ORDERABLES Final Result Performing Organization Address City/[facility]/ZIP Co de Phone Number AYSE [address] [address] * Lipase (05/12/2024 2:20 PM WIRE COMMUNICATIONS ENGINEER) Pathologist [facility] Lipase 24 10 - 99 Units/L Comment:Testing performed by : [address] [address] Blood Venous blood specimen / Unknown 05/12/2024 2:20 PM WIRE COMMUNICATIONS ENGINEER 05/12/2024 2:28 PM WIRE COMMUNICATIONS ENGINEER Clifton Cain LAB BLOOD ORDERABLES Final Result Performing Organization Address [facility] de Phone Number AYSE [address] [address] * Comprehensive metabolic panel (05/12/2024 2:20 PM WIRE COMMUNICATIONS ENGINEER) [facility] Sodium 137 135 - 145 mmol/L Comment:Testing performed by : [address] [address] Potassium, pl 4.0 3.3 - 4.9 mmol/L AYSE Comment:Testing performed by : [address] [address] Chloride 101 97 - 110 mmol/L AYSE Comment:Testing performed by : [address] [address] CO2 23 22 - 32 mmol/L AYSE Comment:Testing performed by : [address] [address] Anion gap 13 2 - 15 mmol/L AYSE Comment:Testing performed by : [address] [address] BUN 7 6 - 25 mg/dL AYSE Comment:Testing performed by : [address] [address] Creatinine 1.05 0.60 - 1.10 mg/dL AYSE Comment:Testing performed by : [address] [address] Glucose 121 70 - 199 mg/dL AYSE [...] was last revised 2022. Testing performed by: [address] [address] Calcium 9.2 8.5 - 10.3 mg/dL AYSE Comment:Testing performed by : [address] [address] Bilirubin, total 1.0 0.1 - 1.2 mg/dL [facility] Comment:Testing performed by : [address] [address] Protein, pl 7.9 6.5 - 8.5 g/dL [facility] Comment:Testing performed by : [address] [address] Albumin 4.6 3.5 - 5.0 g/dL [facility] Comment:Testing performed by : [address] [address] Alk phos 52 40 - 130 Units/L [facility] Comment:Testing performed by : [address] [address] ALT 18 7 - 45 Units/L [facility] Comment:Testing performed by : [address] [address] AST 25 10 - 45 Units/L AYSE Comment:Testing performed by : [address] [address] Blood 05/12/2024 2:20 PM WIRE COMMUNICATIONS ENGINEER 05/12/2024 2:28 PM WIRE COMMUNICATIONS ENGINEER Clifton Yury Abbeg DO LAB BLOOD ORDERABLES Final Result AYSE [address] [facility] [place] [address] * XR Elbow Right 3+ views (04/15/2024 12:01 PM WIRE COMMUNICATIONS ENGINEER) Anatomical Region Laterality Modality Upper Extremities, Elbow Right Compute d Radiography 04/15/2024 12:1 0 PM WIRE COMMUNICATIONS ENGINEER Narrative 04/15/2024 12:12 PM WIRE COMMUNICATIONS ENGINEER EXAM DESCRIPTION: XR ELBOW RIGHT 3 OR [...] by Ric Nixon M.D. CH: Report ID: [id number] Reading Location: [id number] Procedure Note Ric Nixon Jr., MD - [...] by Ric Nixon M.D. CH: Report ID: [id number] Reading Location: [id number] [facility] IMG XR PROCEDURES Final Result * XR Humerus Right (04/15/2024 11:21 AM WIRE COMMUNICATIONS ENGINEER) Anatomical Region Laterality Modality Upper Extremities, Upper Arm Right Com puted Radiography 04/15/2024 11:4 6 AM WIRE COMMUNICATIONS ENGINEER Narrative 04/15/2024 11:47 AM WIRE COMMUNICATIONS ENGINEER EXAM DESCRIPTION: XR HUMERUS RIGHT 2 OR [...] Zana Sanders D.O. PS: PS Report ID: [id number] Reading Location: [id number] Procedure Note Zana Sanders DO - 04/15/2024 [...] Zana Sanders D.O. PS: PS Report ID: [id number] Reading Location: [id number] [facility] IMG XR PROCEDURES Final Result * POCT hCG, urine (04/15/2024 11:04 AM WIRE COMMUNICATIONS ENGINEER) HCG, ur, POC Negative Negative Lot Number [id number] QC Backgroud Clear Acceptable QC Control Line Acceptable Urine 04/15/2024 11:0 4 AM WIRE COMMUNICATIONS ENGINEER [facility] POINT OF CARE TEST ORDERABLES F inal Result * N. gonorrhoeae/C. trachomatis Amplification Urine (06/13/2022 3:09 PM CDT) [facility] C. trachomatis Not Detected Not Detected AYSE CORDERO Comment:Testing performed by : [facility], [address] [place] [address]., [address] N. gonorrhoeae Not Detected Not Detected AYSE [...] last revised on 2019. Testing performed by: [facility], [address] [place] [address]., [address] Urine (None) 06/13/2022 3:09 PM CDT 06/13/2022 4:09 PM CDT Maria Teresa OLIVA LAB MICROBIOLOGY - GENERAL ORDER SADIA Final Result AYSE [address] [facility] [place] [address] * Hepatitis panel, acute (02/01/2022 7:53 PM CDT) [facility] Hep A IgM Nonreactive Nonreactive AYSE CORDERO [...] GENERAL ORDE RUTH Final Result AYSE [address] [facility] [place] [address] from Last 3 Months or Most Recently Relevant to Health Maintenance Insurance [facility] [place] [address] Care Teams Project Manager/Team Coach Relationship Specialty Start Date End Date Garrett Sanders MD [address] [facility] [place] [address] PCP - General Family Medicine 04/09/23
--- OUTSIDE RECORDS SUMMARY | 2024-07-11 19:58 | XMS_ITS | Encounter Summary ---
Author Organization [facility] Healthcare Address [address] [place] [address] Care Team Providers Care Collarette Separator Name Role Phone Garrett Sanders MD Primary Care Provider [phone] Reason for Visit * Reason Onset Date Comments Appointment Request 07/09/2024 Encounter Details Date Type Department Care Team (Late st Contact Info) Description 07/09/2024 Telephone [facility] Family Medicine at [address] [address] Garrett Sanders MD [address] [place] [address] Appointment Request Social History Tobacco Use [...] on file Legal Sex Female 5:33 AM PROPERTY CARETAKER Gender Identity Not on file Sexual Orientation [...] care team offered (e.g., nurse practioner(s), physician assistant center director(s)) ? N/A Additional Comments: Patient was taken by ambulance to [place] ED as she had convulsions at [facility]. She has a history of parathyroid cancer. No appropriate ED follow-up appointment availability. Does message need to be routed? Yes-Action Needed documented in this encounter Plan of Treatment Not on file documented as of this encounter Visit Diagnoses Not on filedocumented in this encounter Care Teams Collarette Separator Relationship Specialty Start Date End Date Garrett Sanders MD [address] [facility] [address] [address] PCP - General Family Medicine 04/09/23 documented as of this encounter
[2024-07-11 20:32] LABS: Creatine Kinase 165 U/L (30-135); Magnesium 1.7 mg/dL (1.6-2.3)
[2024-07-11 20:32] LABS: Add Urine Microscopic? NO; Appearance Urine Clear (Clear); Bilirubin Urine Negative (Negative); Blood Urine Negative (Negative); Color Urine Yellow (Yellow); Glucose Urine UA Negative (Negative); Ketones Urine Negative (Negative); Leukocyte Esterase Ur Negative LEU/UL (Negative); Nitrate Urine Negative (Negative); Protein Urine Negative (Negative); Specific Grav Ur 1.009 (1.001-1.035); Urobilinogen Urine 0.2 mg/dL (<2.0); pH Urine 7.5 (5.0-9.0)
[2024-07-11 20:33] LABS: Free T3 3.89 pg/mL (2.32-6.09)
[2024-07-11 20:36] LABS: T4 Thyroxine 8.76 ug/dL (5.53-11.0)
[2024-07-11 20:46] LABS: Barbiturate Screen Urine Negative (Negative); Benzodiazepines Screen Urine Negative (Negative)
[2024-07-11 20:48] LABS: Amphetamine Screen Urine Negative (Negative); Cannabinoid Screen Urine Positive (Negative); Cocaine Screen Urine Negative (Negative); Methadone Screen Urine Negative (Negative); Opiate Screen Urine Negative (Negative)
[2024-07-11 20:51] LABS: Phencyclidine Screen Urine Negative (Negative)
[2024-07-11 20:52] LABS: BEDSIDEPREGUCG Negative (Negative)
[2024-07-11 20:53] LABS: Glucose Point of Care 81 mg/dl (65-105)
[2024-07-11 22:03] LABS: Influenza A QL RT-PCR Negative (Negative); Influenza B QL RT-PCR Negative (Negative); RSV RNA, RT-PCR Negative (Negative); SARS-CoV-2 RNA PCR Negative (Negative)
--- NOTE | 2024-07-11 22:47 | PC.NURSE ---
at time of discharge pt verbalizes my thyroid being off makes me feel off. Im already on a high dose of levothyroxine.
[2024-07-11 22:48] VITALS: BP 137/76; PULSE 76; RESP 16; TEMP 36.5; O2SAT 98
== END 2024-07-11 22:49 | disposition home or self-care (01) ==
PROVIDERS: Registered Nurse; Emergency Provider Student in an Organized Health Care Education/Training Program; PCP Family Medicine
DX: R53.83 Other fatigue (principal); F12.90 Cannabis use, unspecified, uncomplicated; Z20.822 Contact with and (suspected) exposure to COVID-19; I10 Essential (primary) hypertension; E89.0 Postprocedural hypothyroidism; F41.9 Anxiety disorder, unspecified; F32.A Depression, unspecified; F17.290 Nicotine dependence, other tobacco product, uncomplicated; Z85.850 Personal history of malignant neoplasm of thyroid; Z90.89 Acquired absence of other organs; Z79.899 Other long term (current) drug therapy; R00.1 Bradycardia, unspecified; R94.31 Abnormal electrocardiogram [ECG] [EKG]
CPT/HCPCS: 36415; 80053; 80307; 81003; 81025; 82550; 82607; 82746; 82948; 83735; 84100; 84436; 84443; 84481; 84484; 85025; 85610; 85730; 87637; 93005; 99284

== ENCOUNTER 2024-08-23 01:28 | Emergency (ER) | payer BC, SELFPAY ==
--- NOTE | ~2024-08-23 | XR_ITS ---
EXAMINATION: XR femur RT min 2V DATE: 08/23/2024 04:13 INDICATION: Right thigh pain post recent fall TECHNIQUE: Overlapping proximal and distal, AP and lateral views of the right femur were obtained. COMPARISON: None FINDINGS: Alignment is normal. No fracture. Joint spaces appear normal with no evident right knee joint effusi on. Soft tissues are unremarkable. IMPRESSION: Negative right femur radiographs. Reviewed, dictated and finalized at location A.
--- OUTSIDE RECORDS SUMMARY | 2024-08-23 01:30 | XMS_ITS | Referral Summary ---
Author Organization [facility] Address [address] [place] [address] Care Team Providers Care Business Strategist Name Role Phone Garrett Sanders MD Primary Care Provider [phone] Encounters Date Type Department Care Team Description 08/22/2024 Orders Only [facility] Family Medicine at [address] [place] [address] Garrett Sanders MD 08/20/2024 3:38 PM CDT - 08/20/2024 11:59 PM CDT Hospital Encounter [address] [address] Post-surgical hypothyroidism Discharge Disposition: Discharge to home or self care 08/20/2024 3:45 PM CDT Lab [facility] Outpatient Lab at [address] [phone] 08/20/2024 1:30 PM CDT Office Visit [facility] Specialists of [address] [address] Socrates Contreras MD Post-surgical hypothyroidism 08/14/2024 Results Follow-Up [facility] Family Medicine at [address] [place] [phone] Garrett Sanders MD XR Foot Left 3 or More Views 08/12/2024 4:45 PM CDT - 08/12/2024 11:59 PM CDT Hospital Encounter [facility] [address] [place] [address] Acute right ankle pain; Left foot pain; Shortness of breath Discharge Disposition: Discharge to home or self care 08/07/2024 Telephone [facility] at [address] [place] [address] Garrett Sanders MD PA for pregabalin 50 mg 08/05/2024 Telephone [facility] at [address] [place] [address] Garrett Sanders MD Prior Auth (PA on Pantoprazole) 08/05/2024 Telephone [facility] at [address] [place] [phone] Garrett Sanders MD Medical Question/Miscellaneous; PEER TO PEER CT HEAD WITHOUT CONTRAST 08/04/2024 Telephone [facility] at [address] [place] [address] Garrett Sanders MD Prior Auth (PA on Linzess) 07/29/2024 Telephone [facility] at [address] [place] [phone] Garrett Sanders MD Prior Auth (PA on Pregabalin) 07/29/2024 Orders Only [facility] at [address] [place] [phone] Garrett Sanders MD 07/27/2024 Patient Message [facility] at [address] [place] [phone] Garrett Sandres MD Olanzapine treating my bipolar 07/25/2024 Results Follow-Up [facility] at [address] [place] [phone] Garrett Sanders MD Vitamin D 25 hydroxy, Rheumatoid factor, Erythrocyte sedimentation rate, CRP (acute phase) 07/25/2024 9:15 AM CDT Lab [address] [address] Chronic pain of multiple joints 07/24/2024 3:30 PM CDT Office Visit [facility] at [address] [phone] Garrett Sanders MD Benign essential HTN (Primary Dx); Chronic pain of right ankle; Memory loss; Class 3 severe obesity due to excess calories with serious comorbidity and body mass index (BMI) of 40.0 to 44.9 in adult; Chronic pain of multiple joints 07/22/2024 Telephone [facility] at [address] [phone] Garrett Sanders MD 07/20/2024 Results Follow-Up [facility] at [address] [phone] Garrett Sanders MD Celiac reflex panel, Tissue transglutaminase IgA (TGG-IgA Ab) 07/15/2024 Telephone [facility] at [address] [phone] Garrett Sanders MD Test Results 07/15/2024 9:00 AM CDT Lab [address] [address] Dyspepsia 07/10/2024 11:45 AM CDT Office Visit [facility] at [address] [phone] Garrett Sanders MD Chronic constipation (Primary Dx); Post-surgical hypothyroidism; Colitis 07/09/2024 Telephone [facility] at [address] [phone] Garrett Sanders MD Appointment Request 07/08/2024 Telephone [facility] at [address] [phone] Garrett Sanders MD 3rd no show letter sent 07/08/24 06/02/2024 Results Follow-Up [facility] at [address] [place] [phone] Garrett Sanders MD XR Knee Right 4 or More Views 05/28/2024 Results Follow-Up [facility] at [address] [phone] Garrett Sanders MD Thyroid Function Fries, T4, free 05/28/2024 2:19 PM [facility] - 05/28/2024 11:59 PM [facility] Hospital Encounter [facility] [address] [place] [phone] Chronic pain of right knee Discharge Disposition: Discharge to home or self care 05/28/2024 2:10 PM [facility] Lab [facility] [address] [place] [phone] Postoperative hypothyroidism from Last 3 Months Allergies Active Allergy [...] directed by . 5 patch [address] (VOLTAREN) 75 mg EC tabletIndications :Acute pain of right knee,Chronic pain of right ankle,Right foot pain Take 1 tablet (75 mg total) by mouth 2 (two) times a day 60 tablet 2 024 Active valACYclovir (VALTREX) 1 gram tablet Take 2 tabs (2000 mg) 2 times a days for 1 day. 4 tablet 5 024 Active dicyclomine (BENTYL) 20 mg tablet Take 1 tablet (20 mg total) by mouth every 6 (six) hours 20 tablet 025 Active ondansetron ODT (ZOFRAN-ODT) 4 mg disintegrating tabletIndications :Nausea DISSOLVE 1 TABLET(4 MG) ON THE TONGUE EVERY 8 HOURS NEEDED FOR NAUSEA OR VOMITING 20 tablet 1 025 Active traMADoL (ULTRAM) 50 mg tabletIndications :Arthralgia, unspecified joint Take 1 tablet (50 mg total) by mouth every 8 (eight) hours as needed for pain 90 tablet 2 025 2024 Active naproxen (NAPROSYN) 500 mg tablet Take 1 tablet (500 mg total) by mouth 2 (two) times a day as needed for pain 30 tablet 025 Active cyanocobalamin (vitamin B-12) 500 mcg tabletIndications :Prevention of Vitamin B12 Deficiency Take 1 tablet (500 mcg total) by mouth daily 90 tablet 3 025 2025 Active levothyroxine (SYNTHROID) 200 mcg tabletIndications :Postoperative hypothyroidism Take 1 tablet (200 mcg total) by mouth daily 90 tablet 025 Active riboflavin (Vitamin B-2) 100 mg tabletIndications :Riboflavin Deficiency Take 1 tablet (100 mg total) by mouth 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 90 tablet 3 025 2025 Active cyclobenzaprine (FLEXERIL) 5 mg tablet Take 1 tablet (5 mg total) by mouth 2 (two) times a day as needed for muscle spasms 60 tablet 2 025 2024 Active atenoloL (TENORMIN) 50 mg tabletIndications :Benign essential HTN Take 1 tablet (50 mg total) by mouth daily 90 tablet 3 025 2025 Active amLODIPine (NORVASC) 10 mg tabletIndications :Benign essential HTN Take 1 tablet (10 mg total) by mouth daily 90 tablet 3 025 2025 Active OLANZapine (ZyPREXA) 5 mg tabletIndications :Anxiety,Moderate episode of recurrent major depressive disorder (HCC) Take 1 tablet (5 mg total) by mouth nightly 30 tablet 025 2024 Active linaCLOtide (Linzess) 290 mcg capsule Take 1 capsule (290 mcg total) by mouth 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 30 g 025 Active sertraline (ZOLOFT) 100 mg tabletIndications :Moderate episode of recurrent major depressive disorder (HCC),Anxiety TAKE 1 TABLET(100 MG) BY MOUTH DAILY 100 tablet Active azithromycin (ZITHROMAX) 250 mg tablet Active fluconazole (DIFLUCAN) 150 mg tablet Active HYDROcodone-aceta minophen (NORCO) 5-325 mg per tablet TAKE 1 TABLET BY MOUTH EVERY 6 TO 8 HOURS NEEDED 025 Active furosemide (LASIX) 20 mg tablet TAKE 1 TABLET(20 MG) BY MOUTH DAILY 30 tablet [address] (PROTONIX) 40 mg EC tabletIndications :Nausea Take 1 tablet (40 mg total) by mouth nightly 90 tablet 3 024 2024 Discontinued sertraline (ZOLOFT) 100 mg tabletIndications :Moderate episode of recurrent major depressive disorder (HCC),Anxiety Take 1 tablet (100 mg total) by mouth daily 100 tablet 025 2024 Discontinued hydrocortisone 2.5 % cream APPLY TOPICALLY TO THE AFFECTED AREA TWICE DAILY 30 g 025 2024 Discontinued Linzess 145 mcg capsule TAKE 1 CAPSULE(145 MCG) BY MOUTH DAILY 30 capsule 2 025 2024 Discontinued(R eorder) OLANZapine (ZyPREXA) 7.5 mg tabletIndications :Anxiety,Moderate episode of recurrent major depressive disorder (HCC) Take 1 tablet (7.5 mg total) by mouth nightly 30 tablet 025 2024 Discontinued levothyroxine (SYNTHROID) 25 mcg tabletIndications :Post-surgical hypothyroidism Take 1 tablet (25 mcg total) by mouth daily 90 tablet 025 2024 Discontinued furosemide (LASIX) 20 mg tablet Take 1 tablet (20 mg total) by mouth daily 30 tablet 025 2024 Discontinued OLANZapine (ZyPREXA) 7.5 mg tabletIndications :Anxiety,Moderate episode of recurrent major depressive disorder (HCC) TAKE 1 TABLET(7.5 MG) BY MOUTH EVERY NIGHT 30 tablet 025 2024 Discontinued(R eorder) ARIPiprazole (ABILIFY) 5 mg tablet Take 1 tablet (5 mg total) by mouth daily 30 tablet 2 025 2024 Discontinued pregabalin (LYRICA) 25 mg capsule Take 1 capsule (25 mg total) by mouth 3 (three) times a day 270 capsule 1 2024 Discontinued(R eorder) pregabalin (LYRICA) 25 mg capsule Take 1 capsule (25 mg total) by mouth 2 (two) times a day 60 capsule 2 025 2024 Discontinued(R eorder) pregabalin (LYRICA) 25 mg capsule Take 1 capsule (25 mg total) by mouth 2 (two) times a day 60 capsule 2 025 2024 Discontinued(R eorder) fluconazole (DIFLUCAN) 150 mg tabletIndications :Prophylaxis, Medical Take 1 tablet (150 mg total) by mouth once for 1 dose 1 tablet 2024 pregabalin (LYRICA) 25 mg capsule Take 1 capsule (25 mg total) by mouth 4 (four) times a day 360 capsule 1 025 2024 Discontinued(T herapy completed) pregabalin (LYRICA) 50 mg capsule Take 1 capsule (50 mg total) by mouth 4 (four) times a day 120 capsule 2 025 2024 Discontinued Active Problems Problem Noted Date Diagnosed Date Severe obesity 07/24/2024 Body mass index 40.0-44.9, adult ([facility]) 07/24 Memory loss 07/24/2024 Chronic constipation 07/10/2024 Overview (07/10/2024): Chronci. Uncontrolled with intermittent Rectal Bleeding. Already on lInzess and fiber supplements. Trial cipro/flagyl Acute pain of right knee 12/13/2023 Blepharitis of right upper eyelid 02/14/2023 Assessment & Plan (02/14/2023 2:58 PM [facility]): Warm compresses every 4-6 hours for 5-10 minutes Frequent handwashing, lid massage Doxycycline po 100 mg BID x 7 days. Sunscreen use advised. Topical erythromycin ER for worsening, pain, streaking redness, worsening swelling, vision impairment Upper respiratory tract infection 02/14/2023 Assessment & Plan (02/14/2023 2:59 PM [facility]): Rapid strep negative Rapid covid, flu negative Sx duration 1 week Will be on doxy for blepharitis Tessalon prn Flonase 7-10 days Mucinex as cough expectorant 7-10 days Zyrtec or claritin 7-10 days PCP for persisting symptoms ER for CP, SOB Chronic pain of right ankle 11/18/2021 Benign essential HTN 10/14/2021 Class 3 severe obesity due t o excess calories with body mass index (BMI) of 45.0 to 49.9 in adult 10/14/2021 Assessment & Plan (07/24/2024 4:43 PM CDT): Chronic. Uncontrolled. Goal: 180lb Recommend Nutritional every other [facility] [employer]. Recommended Medication :none. Assessment & Plan (12/13/2023 11:44 AM CDT): Recommended aggressive Lifestyle modification and weight loss for improving overall weight related health conditions. Follow up in 1 or 3 months for continuing Lifestyle Medicine education and management visit. Recommend Lifestyle/Nutrition/Weight Loss Seminar on every other Tuesdays @ 5pm. Assessment & Plan (04/19/2023 12:26 PM [facility]): Recommended aggressive Lifestyle modification and weight loss [...] rem ission 09/20/2021 Vitamin D deficiency 09/20/2021 CATRCAHO (generalized anxiety disorder) 09/20/2021 Moderate episode of recurrent major depressive d isorder 09/20/2021 Post-surgical hypothyroidism 08/30/2021 Assessment & Plan (03/12/2023 3:27 PM [facility]): Continue current levothyroxine dose. Will check thyroid function test and adjust levothyroxine dose accordingly. TSH goal lower normal Assessment & Plan (02/13/2022 2:37 PM [facility]): Continue current levothyroxine dose. Will check thyroid function test and adjust levothyroxine dose accordingly. 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 Biochemical evaluation with thyroid tumor markers. We will also obtain neck ultrasound for evaluation of the neck. If above are in acceptable range, will plan follow-up on yearly basis Assessment & Plan (02/13/2022 2:38 PM [facility]): No evidence of tumor recurrence on biochemical [...] Encounter for STD screening;Recorded Elsewhere: No Location: [facility] Source: EHR Chronic: N Practice ID: [id number] Billable Time: 01:15:00 PM Contraceptive management 04/23/2018 Overview (04/19/2023): Encounter for routine checking of intrauterine contraceptive device;Recorded Elsewhere: No Location: [facility] Source: EHR Chronic: N Practice ID: [id number] Billable Time: 09:45:00 AM Pelvic and perineal pain 02/27/2018 Overview (04/19/2023): Pelvic and perineal pain;Recorded Elsewhere: No Location: [facility] Source: EHR Chronic: N Practice ID: [id number] Billable Time: 11:00:00 AM Menstrual cycle disorder 05/19/2015 Overview (04/19/2023): Menometrorrhagia;Recorded Elsewhere: No Location: [facility] Source: EHR Chronic: N Practice ID: [id number] Billable Time: 10:30:00 AM Irregular menses 01/09/2015 Resolved Problems Problem Noted Date Diagnosed Date Resolved Date Abscess of left thigh 06/14/20222022 Hypoglycemia 02/13/2022 01/29/2023 Assessment & Plan (02/13/2022 2:39 PM [facility]): No documented low blood sugar Advised BG [...] Types Packs/Day Years Used Date Smoking Tobacco: Every Day Cigarettes Last attempted to quit: 07/2021 Vaping Smokeless Tobacco: Never Tobacco Cessation:Ready to Q uit: Not Asked; Counseling Given: Not Answered Alcohol Use Standard Drinks/Week Comments Yes 0 (1 standard drink = 0.6 oz pur e alcohol) occ AUDIT-C Answer Date Recorded Q1: How often do you have a drink containing alcohol? Never 07/24/2024 Q2: How many drinks containi ng alcohol do you have on a typical day when you are drinking? Patient does not drink Q3: How often do you have si x or more drinks on one occasion? Never 07/24/2024 PHQ-2 Answer Date Recorded PHQ-2 Total Score [...] on file Legal Sex Female 5:33 AM [facility] Gender Identity Not on file Sexual Orientation Not on file Last Filed Vital Signs Vital Sign Reading Time Taken Comments Blood Pressure 114/75 08/21/2024 9:14 AM CDT Pulse 72 08/21/2024 9:14 AM CDT Temperature 36.4 C (97.5 F) 07/24/2024 3:16 PM CDT Respiratory Rate 18 08/21/2024 9:14 AM CDT Oxygen Saturation 98% 08/21/2024 9:14 AM CDT Inhaled Oxygen Concentration - - Weight 128.8 kg (284 lb) 08/21/2024 9:14 AM CDT Height 170.2 cm (5' 7 ) 08/21/2024 9:14 AM CDT Body Mass Index 44.48 08/21/2024 9:14 AM CDT Plan of Treatment Not on file Procedures Procedure Name Priority Date/Time Associated Diagnosis Comments T4, FREE Routine 08/20/2024 3:38 PM CDT Post-surgical hypothyroidism TSH Routine 08/20/2024 3:38 PM CDT Post-surgical hypothyroidism XR CHEST PA LATERAL 2 VIEWS Schedule Routine, Read Routine (OP Routine) 08/12/2024 5:17 PM CDT Shortness of breath XR FOOT LEFT 3 OR MORE VIEWS Schedule Routine, Read Routine (OP Routine) 08/12/2024 5:17 PM CDT Left foot pain XR ANKLE RIGHT 3 OR MORE VIEWS Schedule Routine, Read Routine (OP Routine) 08/12/2024 5:17 PM CDT Acute right ankle pain CRP (ACUTE PHASE) Routine 07/25/2024 9:3 0 AM CDT Chronic pain of multiple joints ERYTHROCYTE SEDIMENTATION RATE Routine 07/25/2024 9:30 AM CDT Chronic pain of multiple joints RHEUMATOID FACTOR Routine 07/25/2024 9:3 0 AM CDT Chronic pain of multiple joints VITAMIN D 25 HYDROXY Routine 07/25/2024 9:30 AM CDT Chronic pain of multiple joints FLORENCIO SCREEN W/REFLEX ELVIRA+DSDNA Routine 07/25/2024 9:30 AM CDT Chronic pain of multiple joints TISSUE TRANSGLUTAMINASE, IGA Routine 07/15/2024 8:58 AM CDT CELIAC REFLEX PANEL Routine 07/15/2024 8 :58 AM CDT Dyspepsia XR KNEE RIGHT 4 OR MORE VIEWS Schedule Routine, Read Routine (OP Routine) 05/28/2024 2:35 PM [facility] Chronic pain of right knee T4, FREE Routine 05/28/2024 2:15 PM [facility] Postoperative hypothyroidism THYROID FUNCTION CASCADE Routine 05/28/2024 2:15 PM [facility] Postoperative hypothyroidism N. GONORRHOEAE/C. TRACHOMATIS AMPLIFICATION STAT 06/13/2022 3:09 PM CDT HEPATITIS PANEL, ACUTE STAT 02/01/2022 7:53 PM CDT from Last 3 Months or Most Recently Relevant to Health Maintenance Results * TSH (08/20/2024 3:38 PM CDT) Thyroid Stimulating Hormone 0.94 0.30 - 4.20 mcIUnit/mL Blood 08/20/2024 3:38 PM CDT 08/20/2024 9:18 PM CDT us Socrates Contreras MD LAB BLOOD ORDERABLES Final Resul t Performing Organization Address [facility] Co de Phone Number AYSE BLAKE [phone] [place] [address] * T4, free (08/20/2024 3:38 PM CDT) Free T4 1.52 0.90 - 1.70 ng/dL Blood 08/20/2024 3:38 PM CDT 08/20/2024 9:18 PM CDT us Socrates Contreras MD LAB BLOOD ORDERABLES Final Resul t Performing Organization Address [facility] de Phone Number AYSE BLAKE [address] [place] [address] * XR Foot Left 3 or More Views (08/12/2024 5:17 PM CDT) Anatomical Region Laterality Modality Lower Extremities, Foot Left Computed Radiography 08/13/2024 8:20 PM CDT Narrative 08/13/2024 9:11 PM CDT EXAM DESCRIPTION: XR ANKLE RIGHT 3 OR MORE VIEWS; XR FOOT LEFT 3 OR MORE VIEWS REASON FOR STUDY: Right ankle and left foot pain. Pt states that she had multiple ground level fall x2days ago, rt ankle has hx of multiple fracture. Left foot has been on pain since fall x2days ago FINDINGS: Three views right ankle and three views left foot submitted with comparison 12/08/2021. Right ankle: No acute fracture. Heterotopic ossification beneath the fibula is consistent with a prior lateral ankle sprain. The joint space and mortise appear normal. No evidence of an ankle effusion. Moderate lower extremity soft tissue swelling is present. Small heel spur is present. Left foot: No acute fracture. The midfoot joint spaces are normal. Small heel spur. Mild 1st metatarsophalangeal joint osteoarthritis. IMPRESSION: No acute fracture. Moderate right lower extremity soft tissue swelling. If persistent clinical concern for an occult fracture, may consider further evaluation with cross-sectional imaging. Mild left 1st metatarsophalangeal joint osteoarthritis. THIS IS AN ELECTRONICALLY VERIFIED FINAL REPORT 08/13/2024 9:11 PM - Electronically signed by Arik Camacho M.D. T: Report ID: [id number] Reading Location: [id number] Procedure Note Arik Camacho MD - 08/13/2024 EXAM DESCRIPTION: XR ANKLE RIGHT 3 OR MORE VIEWS; XR FOOT LEFT 3 OR MORE VIEWS REASON FOR STUDY: Right ankle and left foot pain. Pt states that she had multiple ground level fall x2days ago, rt ankle hashx of multiple fracture. Left foot has been on pain since fall x2days ago FINDINGS: Three views right ankle and three views left foot submitted with comparison 12/08/2021. Right ankle: No acute fracture. Heterotopic ossification beneath the fibula isconsistent with a prior lateral ankle sprain. The joint space and mortise appearnormal. No evidence of an ankle effusion. Moderate lower extremity soft tissue swelling is present. Small heel spur is present. Left foot: No acute fracture. The midfoot joint spaces are normal. Small heel spur. Mild 1st metatarsophalangeal joint osteoarthritis. IMPRESSION: No acute fracture. Moderate right lower extremity soft tissue swelling. If persistentclinical concern for an occult fracture, may consider further evaluation with cross-sectional imaging. Mild left 1st metatarsophalangeal joint osteoarthritis. THIS IS AN ELECTRONICALLY VERIFIED FINAL REPORT 08/13/2024 9:11 PM - Electronically signed by Arik Camacho M.D. T: Report ID: [id number] Reading Location: [id number] Garrett Sanders MD IM XR PROCEDURES Final Result * XR Ankle Right 3+ Vw (08/12/2024 5:17 PM CDT) Anatomical Region Laterality Modality Lower Extremities, Ankle Right Compute d Radiography 08/13/2024 8:20 PM CDT Narrative 08/13/2024 9:11 PM CDT EXAM DESCRIPTION: XR ANKLE RIGHT 3 OR MORE VIEWS; XR FOOT LEFT 3 OR MORE VIEWS REASON FOR STUDY: Right ankle and left foot pain. Pt states that she had multiple ground level fall x2days ago, rt ankle has hx of multiple fracture. Left foot has been on pain since fall x2days ago FINDINGS: Three views right ankle and three views left foot submitted with comparison 12/08/2021. Right ankle: No acute fracture. Heterotopic ossification beneath the fibula is consistent with a prior lateral ankle sprain. The joint space and mortise appear normal. No evidence of an ankle effusion. Moderate lower extremity soft tissue swelling is present. Small heel spur is present. Left foot: No acute fracture. The midfoot joint spaces are normal. Small heel spur. Mild 1st metatarsophalangeal joint osteoarthritis. IMPRESSION: No acute fracture. Moderate right lower extremity soft tissue swelling. If persistent clinical concern for an occult fracture, may consider further evaluation with cross-sectional imaging. Mild left 1st metatarsophalangeal joint osteoarthritis. THIS IS AN ELECTRONICALLY VERIFIED FINAL REPORT 08/13/2024 9:11 PM - Electronically signed by Arik Camacho M.D. T: Report ID: [id number] Reading Location: [place] [id number] Procedure Note Arik Camacho MD - 08/13/2024 EXAM DESCRIPTION: XR ANKLE RIGHT 3 OR MORE VIEWS; XR FOOT LEFT 3 OR MORE VIEWS REASON FOR STUDY: Right ankle and left foot pain. Pt states that she had multiple ground level fall x2days ago, rt ankle hashx of multiple fracture. Left foot has been on pain since fall x2days ago FINDINGS: Three views right ankle and three views left foot submitted with comparison 12/08/2021. Right ankle: No acute fracture. Heterotopic ossification beneath the fibula isconsistent with a prior lateral ankle sprain. The joint space and mortise appearnormal. No evidence of an ankle effusion. Moderate lower extremity soft tissue swelling is present. Small heel spur is present. Left foot: No acute fracture. The midfoot joint spaces are normal. Small heel spur. Mild 1st metatarsophalangeal joint osteoarthritis. IMPRESSION: No acute fracture. Moderate right lower extremity soft tissue swelling. If persistentclinical concern for an occult fracture, may consider further evaluation with cross-sectional imaging. Mild left 1st metatarsophalangeal joint osteoarthritis. THIS IS AN ELECTRONICALLY VERIFIED FINAL REPORT 08/13/2024 9:11 PM - Electronically signed by Arik Camacho M.D. T: Report ID: [id number] Reading Location: [id number] us Garrett Sanders MD IM XR PROCEDURES Final Result * XR Chest Pa Lateral 2 Views (08/12/2024 5:17 PM CDT) Anatomical Region Laterality Modality Body, Chest N/A Computed Radiogr aphy 08/19/2024 5:06 PM CDT Narrative 08/19/2024 5:07 PM CDT EXAM DESCRIPTION: XR CHEST PA LATERAL 2 VIEWS REASON FOR STUDY: cough Pt has complaints sob x3days. F/U Pt states on last chest images saw glass opacities TECHNIQUE: 2 radiographic view(s) of the chest. COMPARISON: 04/09/2023 FINDINGS: LUNGS: Allowing for overlying soft tissues, the lungs appear grossly clear. No consolidation or effusion is seen. HEART/MEDIASTINUM: Cardiac silhouette normal in size. Mediastinal and hilar contours appear normal. LINES/TUBES: None. BONES: No acute osseous abnormality. IMPRESSION: No acute cardiopulmonary abnormality. THIS IS AN ELECTRONICALLY VERIFIED FINAL REPORT 08/19/2024 5:07 PM - Electronically signed by Ryan Colin M.D. T: Report ID: [id number] Reading Location: [id number] Procedure Note Ryan Colin MD - 08/19/2024 EXAM DESCRIPTION: XR CHEST PA LATERAL 2 VIEWS REASON FOR STUDY: cough Pt has complaints sob x3days. F/U Pt states on last chest images Dr coronaglass opacestefany TECHNIQUE: 2 radiographic view(s) of the chest. COMPARISON: 04/09/2023 FINDINGS: LUNGS: Allowing for overlying soft tissues, the lungs appear grossly clear. No consolidation or effusion is seen. HEART/MEDIASTINUM: Cardiac silhouette normal in size. Mediastinal andhilar contours appear normal. LINES/TUBES: None. BONES: No acute osseous abnormality. IMPRESSION: No acute cardiopulmonary abnormality. THIS IS AN ELECTRONICALLY VERIFIED FINAL REPORT 08/19/2024 5:07 PM - Electronically signed by Ryan Colin M.D. KH T: Report ID: [id number] Reading Location: [place] [address] Garrett Sanders MD IMG XR PROCEDURES Final Result * FLORENCIO screen w/rflx ELVIRA+dsDNA (07/25/2024 9:30 AM CDT) FLORENCIO Negative Comment: Interpretive Data Normal range for FLORENCIO Qualitative Antibody = Negative. 1. FLORENCIO is performed using indirect immunofluorescence against HEp-2 cells 2. FLORENCIO titers are performed on all positive qualitative results. 3. A significantly positive FLORENCIO result is defined as a positive nuclear fluorescence at a titer of 1:80 or greater. 4. 15% of normal people above age 65 have significantly positive FLORENCIO results. 5% or less of normal people age 65 or under have significantly positive FLORENCIO results. Current interpretive data was last revised on 2019. Testing performed by: [facility], [address] [facility], [place]., [address] Blood 07/25/2024 9:30 AM CDT 07/25/2024 11:08 AM CDT us Garrett Sanders MD LAB BLOOD ORDERABLES Final Resul t [facility] [address] [facility] Department [place] [address] * Vitamin D 25 hydroxy (07/25/2024 9:30 AM CDT) Vitamin D 25-OH 34.0 30.0 - 80.0 ng/mL Blood 07/25/2024 9:30 AM CDT 07/25/2024 9:46 AM CDT us Garrett Sanders MD LAB BLOOD ORDERABLES Final Resul t Performing Organization Address [facility] Co de Phone Number [address] [place] [address] * Erythrocyte sedimentation rate (07/25/2024 9:30 AM CDT) [facility] Erythrocyte sedimentation rate 14 1 - 20 mm/hr Blood 07/25/2024 9:30 AM CDT 07/25/2024 9:46 AM CDT us Garrett Sanders MD LAB BLOOD ORDERABLES Final Resul t Performing Organization Address [facility] Co de Phone Number [address] [place] [address] * Rheumatoid factor (07/25/2024 9:30 AM CDT) [facility] Rheumatoid factor, quant <10.0 <=15.0 IUnits/mL Blood 07/25/2024 9:30 AM CDT 07/25/2024 9:46 AM CDT us Garrett Sanders MD LAB BLOOD ORDERABLES Final Resul t Performing Organization Address [facility] Co de Phone Number [address] [place] [address] * CRP (acute phase) (07/25/2024 9:30 AM CDT) [facility] CRP 3.4 <=10.0 mg/L Blood 07/25/2024 9:30 AM CDT 07/25/2024 9:46 AM CDT Garrett Sanders MD LAB BLOOD ORDERABLES Final Resul t Performing Organization Address [facility] Co de Phone Number [address] [place] [address] * Celiac reflex panel (07/15/2024 8:58 AM CDT) [facility] IgA 201 61 - 356 mg/dL [place] [facility] Celiac disease interpretation See Footnote AYSE Comment: See Comment: Negative serology. Celiac disease unlikely. However, approximately 10% of patients with celiac disease are seronegative. Also, patients who are already adhering to a gluten-free diet may be seronegative. If celiac disease is highly clinically suspected, consider HLA-DQ typing. Test Performed by: [place] [address] Odd Piece Checker: Horace León Ph.D.; CLIA# [id number] Blood 07/15/2024 8:58 AM CDT 07/15/2024 9:41 AM CDT Garrett Sanders MD LAB BLOOD ORDERABLES Final Resul t Performing Organization Address [facility] de Phone Number [address] [place] [address] [place] [facility] * Tissue transglutaminase IgA (TGG-IgA Ab) (07/15/2024 8:58 AM CDT) TTG ab, IgA <1.2 <4.0 (Negative) units/mL Comment: Test Performed by: [place] [address] Odd Piece Checker: Horace León Ph.D.; CLIA# [id number] Interpretive data Negative: <15 units/mL Positive: > or equal to 15 units/mL Current interpretive data was last revised on 2016. Testing performed by: [facility], [address] [facility] [place]., [address] Blood 07/15/2024 8:58 AM CDT 07/15/2024 9:41 AM CDT Garrett Sanders MD LAB BLOOD ORDERABLES Final Resul t Performing Organization Address [facility] Co de Phone Number [address] [place] [address] * XR Knee Right 4 or More Views (05/28/2024 2:35 PM [facility]) Anatomical Region Laterality Modality Lower Extremities, Knee Right Computed Radiography 06/01/2024 7:27 AM [facility] Narrative 06/01/2024 7:28 AM [facility] EXAM DESCRIPTION: XR KNEE RIGHT 4 OR [...] by Arik Camacho M.D. T: Report ID: [id number] Reading Location: [id number] Procedure Note Arik Camacho MD - 06/01/2024 [...] by Arik Camacho M.D. T: Report ID: [id number] Reading Location: [id number] Garrett Sanders MD IMG XR PROCEDURES Final Result * (ABNORMAL) Thyroid Function Fries (05/28/2024 2:15 PM [facility]) TSH 40.70(H) 0.30 - 4.20 mcIUnit/mL Blood 05/28/2024 2:15 PM [facility] 05/28/2024 2:30 PM [facility] Garrett Sanders MD LAB BLOOD ORDERABLES Final Resul t Performing Organization Address [facility] Co de Phone Number AYSE [address] [place] [address] * T4, free (05/28/2024 2:15 PM [facility]) Free T4 1.03 0.90 - 1.70 ng/dL Blood 05/28/2024 2:15 PM [facility] 05/28/2024 2:30 PM [facility] Narrative [facility] NAMED [facility] - 05/28/2024 4:15 PM [facility] This test was reflexed from a TSH result. Garrett Sanders MD LAB BLOOD ORDERABLES Final Resul t Performing Organization Address [facility] de Phone Number [place] [id number] [place] [address] * N. gonorrhoeae/C. trachomatis Amplification Urine (06/13/2022 3:09 PM CDT) Pathologist [facility] C. trachomatis Not Detected Not Detected AYSE Comment:Testing performed by : [facility], [address] [place] [address]., [id number] N. gonorrhoeae Not Detected Not Detected AYSE Comment: Interpretive Data Testing performed by the [facility]. This assay detects Chlamydia [...] on 2019. Testing performed by: [facility], [address] [place] [address]., [id number] Urine (None) 06/13/2022 3:09 PM CDT 06/13/2022 4:09 PM CDT Maria Teresa OLIVA LAB MICROBIOLOGY - GENERAL ORDER SADIA Final Result Performing Organization Address [facility] Co de Phone Number AYSE CORDERO [address] [facility] [place] [address] * Hepatitis panel, acute (02/01/2022 7:53 PM CDT) Hep A IgM Nonreactive Nonreactive [facility] Comment: Interpretive Data: If Hep A IgM Ab is reported as Equivocal, a new sample should be drawn in two weeks for testing. Current interpretive data was last revised on 19. Hep B core IgM Nonreactive Nonreactive [facility] Comment: Interpretive Data If HepB Core IgM Ab is reported as Equivocal, a new sample should be drawn in two weeks for testing. Current interpretive data was last revised on 19. Hep C Ab Nonreactive Nonreactive [facility] Comment: Interpretive Data Nonreactive: Antibodies to [...] last revised on 2019. HepBsAg Nonreactive Nonreactive [facility] Blood 02/01/2022 7:53 PM CDT 02/01/2022 11:28 PM CDT Liz Tucker DO LAB MICROBIOLOGY - GENERAL ORDE RABLES Final Result Performing Organization Address City/[facility]/ZIP Co de Phone Number AYSE [address] [facility] [place] [address] from Last 3 Months or Most Recently Relevant to Health Maintenance Insurance [facility] Care Teams Business Strategist Relationship Specialty Start Date End Date Garrett Sanders MD [address] [place] [address] PCP - General Family Medicine 04/09/23
--- OUTSIDE RECORDS SUMMARY | 2024-08-23 01:30 | XMS_ITS | Encounter Summary ---
Author Organization [facility] Healthcare Address [address] [place] [address] Care Team Providers Care Pole Shaver Name Role Phone Garrett Sanders MD Primary Care Provider [phone] Encounter Details Date Type Department Care Team (Late st Contact Info) Description 08/22/[address] 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
--- OUTSIDE RECORDS SUMMARY | 2024-08-23 01:30 | XMS_ITS | Encounter Summary ---
Author Organization [facility] Healthcare Address [address] [place] [address] Care Team Providers Care It Analyst Name Role Phone Garrett Sanders MD Primary Care Provider [phone] Encounter Details Date Type Department Care Team (Latest Contact Info) Description 07/20/2024 Results Follow-Up [facility] Medical Group Family Medicine at [address] [place] [address] Garrett Sanders MD [address] [place] [address] [address] [place] [address] Celiac reflex panel, Tissue transglutaminase IgA (TGG-IgA Ab) Social History Tobacco Use Types Packs/Day Years [...] on file 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
--- OUTSIDE RECORDS SUMMARY | 2024-08-23 01:30 | XMS_ITS | Clinical Summary ---
Author Organization [facility] Address [address] [place] [address] Care Team Providers Care Plunger Scoop Operator Name Role Phone Garrett Sanders MD Primary Care Provider [phone] Allergies Active Allergy Reactions Criticality Noted Date [...] directed by MD. 5 patch [address] (VOLTAREN) [...] mcg total) by mouth daily 90 tablet Active riboflavin (Vitamin B-2) 100 mg tabletIndications :Riboflavin Deficiency Take 1 tablet (100 mg total) by mouth hris administrator before breakfast 90 tablet 3 025 2025 [...] 1 capsule (290 mcg total) by mouth hris administrator before breakfast 90 capsule 3 025 2025 [...] THE AFFECTED AREA TWICE DAILY. 30 g Active sertraline (ZOLOFT) 100 mg tabletIndications :Moderate [...] (three) times a day 270 capsule 1 025 2024 Discontinued(R eorder) pregabalin (LYRICA) 25 [...] mouth once for 1 dose 1 tablet 025 2024 pregabalin (LYRICA) 25 mg capsule Take 1 capsule (25 mg total) by mouth 4 (four) times a day 360 capsule 1 025 05/07/ 2025 Discontinued(T herapy completed) pregabalin (LYRICA) 50 mg capsule Take 1 capsule (50 mg total) by mouth 4 (four) times a day 120 capsule 2 025 2024 Discontinued Active Problems Problem Noted Date Diagnosed Date Severe obesity 07/24/2024 Body mass index 40.0-44.9, adult (CMS/HCC) 07/24 Memory loss 07/24/2024 Chronic constipation 07/10/2024 Overview (07/10/2024): Chronci. Uncontrolled with intermittent Rectal Bleeding. Already on lInzess and fiber supplements. Trial cipro/flagyl Acute pain of right knee 12/13/2023 Blepharitis of right upper eyelid 02/14/2023 Assessment & Plan (02/14/2023 2:58 PM POOL INSTALLER): Warm compresses every 4-6 hours for 5-10 minutes Frequent handwashing, lid massage Doxycycline po 100 mg BID x 7 days. Sunscreen use advised. Topical erythromycin ER for worsening, pain, streaking redness, worsening swelling, vision impairment Upper respiratory tract infection 02/14/2023 Assessment & Plan (02/14/2023 2:59 PM POOL INSTALLER): Rapid strep negative Rapid covid, flu negative [...] Uncontrolled. Goal: 180lb Recommend Nutritional every other Sunday Seminar. Recommended Medication :none. Assessment & Plan (12/13/2023 11:44 AM CDT): Recommended aggressive Lifestyle modification and weight loss for improving overall weight related health conditions. Follow up in 1 or 3 months for continuing Lifestyle Medicine education and management visit. Recommend Lifestyle/Nutrition/Weight Loss Seminar on every other Tuesdays @ 5pm. Assessment & Plan (04/19/2023 12:26 PM POOL INSTALLER): Recommended aggressive Lifestyle modification and weight loss [...] 08/30/2021 Assessment & Plan (03/12/2023 3:27 PM POOL INSTALLER): Continue current levothyroxine dose. Will check thyroid function test and adjust levothyroxine dose accordingly. TSH goal lower normal Assessment & Plan (02/13/2022 2:37 PM POOL INSTALLER): Continue current levothyroxine dose. Will check thyroid function test and adjust levothyroxine dose accordingly. 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 Biochemical evaluation with thyroid tumor markers. We will also obtain neck ultrasound for evaluation of the neck. If above are in acceptable range, will plan follow-up on yearly basis Assessment & Plan (02/13/2022 2:38 PM POOL INSTALLER): No evidence of tumor recurrence on biochemical [...] Encounter for STD screening;Recorded Elsewhere: No Location: [facility] Source: EHR Chronic: N Practice ID: [id number] Billable Time: 01:15:00 PM Contraceptive management 04/23/2018 Overview (04/19/2023): Encounter for routine checking of intrauterine contraceptive device;Recorded Elsewhere: No Location: [facility] Source: EHR Chronic: N Practice ID: [id number] Billable Time: 09:45:00 AM Pelvic and perineal pain 02/27/2018 Overview (04/19/2023): Pelvic and perineal pain;Recorded Elsewhere: No Location: [facility] Source: EHR Chronic: N Practice ID: [id number] Billable Time: 11:00:00 AM Menstrual cycle disorder 05/19/2015 Overview (04/19/2023): Menometrorrhagia;Recorded Elsewhere: No Location: [facility] Source: EHR Chronic: N Practice ID: [id number] Billable Time: 10:30:00 AM Irregular menses 01/09/2015 Resolved Problems Problem Noted Date Diagnosed Date Resolved Date Abscess of left thigh 06/14/20222022 Hypoglycemia 02/13/2022 01/29/2023 Assessment & Plan (02/13/2022 2:39 PM POOL INSTALLER): No documented low blood sugar Advised BG monitoring with symptoms to establish correlation & inform further work up Positive FLORENCIO (antinuclear antibody) 10/14/2021 01/29/2023 Rash 09/20/2021 01/29/2023 Sore throat 09/20/2021 01/29/2023 Infectious mononucleosis without complication 09/05/19 22 01/29/2023 Leg mass, left 09/09/2018 01/29/2023 Encounters Date Type Department Care Team Description 08/22/2024 Orders Only [facility] Family Medicine at [address] [place] [address] Garrett Sanders MD 08/20/2024 3:45 PM CDT Lab [facility] Outpatient Lab at [address] [phone] 08/20/2024 3:38 PM CDT - 08/20/2024 11:59 PM CDT Hospital Encounter [facility] [id number] [place] [address] Post-surgical hypothyroidism Discharge Disposition: Discharge to home or self care 08/20/2024 1:30 PM CDT Office Visit [facility] [id number] [place] [address] [address] [address] Socrates Contreras MD Post-surgical hypothyroidism 08/14/2024 Results Follow-Up [facility] Family Medicine at [address] [address] Garrett Sanders MD XR Foot Left 3 or More Views 08/12/2024 4:45 PM CDT - 08/12/2024 11:59 PM CDT Hospital Encounter [facility] [place] [address] Acute right ankle pain; Left foot pain; Shortness of breath Discharge Disposition: Discharge to home or self care 08/07/2024 Telephone [facility] Family Medicine at [address] [address] Garrett Sanders MD PA for pregabalin 50 mg 08/05/2024 Telephone [facility] Family Medicine at [address] [address] Garrett Sanders MD Prior Auth (PA on Pantoprazole) 08/05/2024 Telephone [facility] Family Medicine at [address] [place] [address] Garrett Sanders MD Medical Question/Miscellaneous; PEER TO PEER CT HEAD WITHOUT CONTRAST 08/04/2024 Telephone [facility] Family Medicine at [address] [place] [address] Garrett Sanders MD Prior Auth (PA on Linzess) 07/29/2024 Telephone [facility] Medicine at [address] [place] [phone] Garrett Sanders MD Prior Auth (PA on Pregabalin) 07/29/2024 Orders Only [facility] Family Medicine at [address] [address] Garrett Sanders MD 07/27/2024 Patient Message [facility] Medicine at [address] [address] Garrett Sanders MD Olanzapine treating my bipolar 07/25/2024 9:15 AM CDT Lab [facility] [address] [place] [address] Chronic pain of multiple joints 07/25/2024 Results Follow-Up [facility] Family Medicine at [address] [address] Garrett Sanders MD Vitamin D 25 hydroxy, Rheumatoid factor, Erythrocyte sedimentation rate, CRP (acute phase) 07/24/2024 3:30 PM CDT Office Visit [facility] Family Medicine at [address] [address] Garrett Sanders MD Benign essential HTN (Primary Dx); Chronic pain of right ankle; Memory loss; Class 3 severe obesity due to excess calories with serious comorbidity and body mass index (BMI) of 40.0 to 44.9 in adult; Chronic pain of multiple joints 07/22/2024 Telephone [facility] at [address] [phone] Garrett Sanders MD 07/20/2024 Results Follow-Up [facility] Family Medicine at [address] [place] [phone] Garrett Sanders MD Celiac reflex panel, Tissue transglutaminase IgA (TGG-IgA Ab) 07/15/2024 9:00 AM CDT Lab [facility] [address] [place] [address] Dyspepsia 07/15/2024 Telephone [facility] Family Medicine at [address] [address] Garrett Sanders MD Test Results 07/10/2024 11:45 AM CDT Office Visit [facility] Medicine at [address] [address] Garrett Sanders MD Chronic constipation (Primary Dx); Post-surgical hypothyroidism; Colitis 07/09/2024 Telephone [facility] Medicine at [address] [place] [phone] Garrett Sanders MD Appointment Request 07/08/2024 Telephone [facility] Medicine at [address] [address] Garrett Sanders MD 3rd no show letter sent 07/08/24 06/02/2024 Results Follow-Up [facility] Medicine at [address] [address] Garrett Sanders MD XR Knee Right 4 or More Views 05/28/2024 2:19 PM POOL INSTALLER - 05/28/2024 11:59 PM POOL INSTALLER Hospital Encounter [facility] [address] [place] [address] Chronic pain of right knee Discharge Disposition: Discharge to home or self care 05/28/2024 2:10 PM POOL INSTALLER Lab [facility] [address] [place] [address] Postoperative hypothyroidism 05/28/2024 Results Follow-Up [facility] Family Medicine at [address] [place] [address] Garrett Sanders MD Thyroid Function [place], T4, free from Last 3 Months Immunizations Immunization Administration [...] on file Legal Sex Female 5:33 AM POOL INSTALLER Gender Identity Not on file Sexual Orientation [...] 08/21/2024 9:14 AM CDT Plan of Treatment Health Maintenance Due Date Last Done Comments Cervical Cancer Screening 2000 Pneumococcal vaccine <65 (1 of 1 - PPSV23) 2006 12/30/2002, 07/25/2001, 05/08/2001, Additional history exists [...] 12/30/2002 , 05/08/2001, 03/12/2001, Additional history exists Varicella Vaccines Completed 10/01/2006, [...] Read Routine (OP Routine) 05/28/2024 2:35 PM POOL INSTALLER Chronic pain of right knee T4, FREE Routine 05/28/2024 2:15 PM POOL INSTALLER Postoperative hypothyroidism THYROID FUNCTION CASCADE Routine 05/28/2024 2:15 PM POOL INSTALLER Postoperative hypothyroidism N. GONORRHOEAE/C. TRACHOMATIS AMPLIFICATION STAT [...] ORDERABLES Final Resul t Performing Organization Address [facility] de Phone Number AYSE BLAKE [address] [address] [facility] [place] [address] * T4, free (08/20/2024 3:38 PM CDT) Free T4 1.52 0.90 - 1.70 ng/dL Blood 08/20/2024 3:38 PM CDT 08/20/2024 9:18 PM CDT us Socrates Contreras MD LAB BLOOD ORDERABLES Final Resul t Performing Organization Address [facility] Phone Number AYSE BLAKE [address] [address] [place] [address] * XR Foot Left 3 or More [...] by Arik Camacho M.D. T: Report ID: [id number] Reading Location: [id number] Procedure Note Arik Camacho MD - 08/13/2024 [...] by Arik Camacho M.D. T: Report ID: [id number] Reading Location: [id number] us Garrett Sanders MD IMG XR PROCEDURES Final Result * XR Ankle [...] by Arik Camacho M.D. T: Report ID: [id number] Reading Location: [id number] Procedure Note Arik Camacho MD - 08/13/2024 [...] by Arik Camacho M.D. T: Report ID: [id number] Reading Location: [place] [address] us Garrett Sanders MD IM XR PROCEDURES [...] Pt states on last chest images Dr corona glass opacities TECHNIQUE: 2 radiographic view(s) of [...] by Ryan Colin M.D. T: Report ID: [id number] Reading Location: [id number] Procedure Note Ryan Colin MD - 08/19/2024 [...] by Ryan Colin M.D. T: Report ID: [id number] Reading Location: [place] [address] Garrett Sanders MD IMG XR PROCEDURES Final [...] last revised on 2019. Testing performed by: [facility], [address] [facility], [place]., [address] Blood 07/25/2024 9:30 AM CDT 07/25/2024 11:08 AM CDT Garrett Sanders MD LAB BLOOD ORDERABLES Final Resul t [id number] [facility] Department [place] [address] * Vitamin D 25 hydroxy (07/25/2024 9:30 AM CDT) Vitamin D 25-OH 34.0 30.0 - 80.0 ng/mL Blood 07/25/2024 9:30 AM CDT 07/25/2024 9:46 AM CDT us Garrett Sanders MD LAB BLOOD ORDERABLES Final Resul t Performing Organization Address [facility] Co de Phone Number [address] [place] [address] * Erythrocyte sedimentation rate (07/25/2024 9:30 AM CDT) Erythrocyte sedimentation rate 14 1 - 20 mm/hr Blood 07/25/2024 9:30 AM CDT 07/25/2024 9:46 AM CDT us Garrett Sanders MD LAB BLOOD ORDERABLES Final Resul t Performing Organization Address [facility] de Phone Number [address] [address] * Rheumatoid factor (07/25/2024 9:30 AM CDT) Pathologist [facility] Rheumatoid factor, quant <10.0 <=15.0 IUnits/mL Blood 07/25/2024 9:30 AM CDT 07/25/2024 9:46 AM CDT us Garrett Sanders MD LAB BLOOD ORDERABLES Final Resul t Performing Organization Address [facility] de Phone Number [address] [place] [address] * CRP (acute phase) (07/25/2024 9:30 AM CDT) Pathologist [facility] CRP 3.4 <=10.0 mg/L Blood 07/25/2024 9:30 AM CDT 07/25/2024 9:46 AM CDT us Garrett Sanders MD LAB BLOOD ORDERABLES Final Resul t Performing Organization Address [facility] Co de Phone Number [address] [place] [address] * Celiac reflex panel (07/15/2024 8:58 AM CDT) IgA 201 61 - 356 mg/dL [place] [facility] Celiac disease interpretation See Footnote AYSE Comment: See Comment: Negative serology. Celiac disease unlikely. However, approximately 10% of patients with celiac disease are seronegative. Also, patients who are already adhering to a gluten-free diet may be seronegative. If celiac disease is highly clinically suspected, consider HLA-DQ typing. Test Performed by: [place] [address] Sales Ledger Administrator: Horace León Ph.D.; CLIA# [id number] Blood 07/15/2024 8:58 AM CDT 07/15/2024 9:41 AM CDT Garrett Sanders MD LAB BLOOD ORDERABLES Final Resul t Performing Organization Address [facility] de Phone Number [address] [place] [address] [place] [facility] * Tissue transglutaminase IgA (TGG-IgA Ab) (07/15/2024 8:58 AM CDT) TTG ab, IgA <1.2 <4.0 (Negative) units/mL Comment: Test Performed by: [place] [address] Sales Ledger Administrator: Horace León Ph.D.; CLIA# [id number] Interpretive data Negative: <15 units/mL Positive: > or equal to 15 units/mL Current interpretive data was last revised on 2016. Testing performed by: [facility], [address] [facility], [place]., [address] Blood 07/15/2024 8:58 AM CDT 07/15/2024 9:41 AM CDT Garrett Sanders MD LAB BLOOD ORDERABLES Final Resul t Performing Organization Address [facility] Co de Phone Number [address] [place] [address] * XR Knee Right 4 or More Views (05/28/2024 2:35 PM POOL INSTALLER) Anatomical Region Laterality Modality Lower Extremities, Knee Right Computed Radiography 06/01/2024 7:27 AM POOL INSTALLER Narrative 06/01/2024 7:28 AM POOL INSTALLER EXAM DESCRIPTION: XR KNEE RIGHT 4 OR [...] by Arik Camacho M.D. T: Report ID: [id number] Reading Location: [id number] Procedure Note Arik Camacho MD - 06/01/2024 [...] by Arik Camacho M.D. T: Report ID: [id number] Reading Location: [id number] us Garrett Sanders MD IMG XR PROCEDURES Final Result * (ABNORMAL) Thyroid Function [place]wick (05/28/2024 2:15 PM POOL INSTALLER) TSH 40.70(H) 0.30 - 4.20 mcIUnit/mL Blood 05/28/2024 2:15 PM POOL INSTALLER 05/28/2024 2:30 PM POOL INSTALLER Garrett Sanders MD LAB BLOOD ORDERABLES Final Resul t Performing Organization Address [facility] de Phone Number [facility] [address] [place] [address] * T4, free (05/28/2024 2:15 PM POOL INSTALLER) Free T4 1.03 0.90 - 1.70 ng/dL Blood 05/28/2024 2:15 PM POOL INSTALLER 05/28/2024 2:30 PM POOL INSTALLER Narrative AYSE - 05/28/2024 4:15 PM POOL INSTALLER This test was reflexed from a TSH result. Garrett Sanders MD LAB BLOOD ORDERABLES Final Resul t Performing Organization Address [facility] de Phone Number [facility] [address] [place] [address] * N. gonorrhoeae/C. trachomatis Amplification Urine (06/13/2022 3:09 PM CDT) Pathologist [facility] C. trachomatis Not Detected Not Detected AYSE CORDERO Comment:Testing performed by : [facility], [address] [place] [address]., [address] N. gonorrhoeae Not Detected Not Detected AYSE [...] on 2019. Testing performed by: [facility], [address] [place] [address]., [address] Urine (None) 06/13/2022 3:09 PM CDT 06/13/2022 4:09 PM CDT Maria Teresa OLIVA LAB MICROBIOLOGY - GENERAL ORDER SADIA Final Result Performing Organization Address [facility] Co de Phone Number AYSE CORDERO [address] [facility] [place] [address] * Hepatitis panel, acute (02/01/2022 7:53 PM CDT) Hep A IgM Nonreactive Nonreactive [facility] Comment: Interpretive Data: If Hep A IgM Ab is reported as Equivocal, a new sample should be drawn in two weeks for testing. Current interpretive data was last revised on 19. Hep B core IgM Nonreactive Nonreactive [facility] Comment: Interpretive Data If HepB Core IgM Ab is reported as Equivocal, a new sample should be drawn in two weeks for testing. Current interpretive data was last revised on 19. Hep C Ab Nonreactive Nonreactive [facility] Comment: Interpretive Data Nonreactive: Antibodies to HCV [...] revised on 2019. HepBsAg Nonreactive Nonreactive [facility] Blood 02/01/2022 7:53 PM CDT 02/01/2022 11:28 PM CDT Liz Tucker DO LAB MICROBIOLOGY - GENERAL ORDE RABLES Final Result Performing Organization Address City/[facility]/ZIP Co de Phone Number AYSE [address] [facility] [place] [address] from Last 3 Months or Most Recently Relevant to Health Maintenance Insurance [facility] Care Teams Plunger Scoop Operator Relationship Specialty Start Date End Date Garrett Sanders MD [address] [place] [address] PCP - General Family Medicine 04/09/23
--- OUTSIDE RECORDS SUMMARY | 2024-08-23 01:30 | XMS_ITS | Clinical Summary ---
Author Organization [facility] Address [address] [place] [address] Care Team Providers Care Spot Worker Name Role Phone Berkley De La Paz MD Primary Care Provider [phone] Berkley De La Paz MD Unavailable [phone] Source Comments [facility],non-owned Affiliates and Associated Physician Practices is amultiple site organization consisting of ambulatory clinics and hospital sitesin [place], [place], [place] and [place]. This disclosure is being madepursuant to the Care Everywhere program and may not contain all information available regarding this patient. Last updated 17.[facility] Allergies Active Allergy Reactions Criticality Noted Date Comments Latex 12/04/2016 Medications * Be aware that medications may not be up to date on this document. Alwaysverify current medications with the patient. albuterol HFA (PROVENTIL;VENT MARISA;PROAIR) 108 (90 BASE) MCG/ACT inhaler Inhale 2 [...] at Not on file Legal Sex Female 5:40 AM PLASTIC PRODUCTS SALES REPRESENTATIVE Gender Identity Not on file Sexual Orientation [...] Health Maintenance Due Date Last Done Comments HIV SCREENING 12/26/2015 HPV VACCINE (1 - [...] on patient's age to complete this topic Insurance [facility] [place]ICA[place] [facility] MEDICAID - OUT OF [facility] AETNA [facility] [employer] [facility] MEDICAID - [place] [facility] Care Teams Spot Worker Relationship Specialty Start Date End Date Berkley De La Paz MD [address] [place] [address] [address] [place] [address] PCP - General 04/11/18 Berkley De La Paz MD [address] [place] [address] Pediatrics 04/11/18
--- OUTSIDE RECORDS SUMMARY | 2024-08-23 01:30 | XMS_ITS | Encounter Summary ---
Author Organization [facility] Address [address] [place] [address] Care Team Providers Care Whiteprinting Machine Operator Name Role Phone Garrett Sanders MD Primary Care Provider [phone] Encounter Details Date Type Department Care Team (Late st Contact Info) Description 08/14/2024 Results Follow-Up [facility] Family Medicine at [address] [place] [address] Garrett Sanders MD [address] [place] [address] [address] [place] [address] XR Foot Left 3 or More Views Social History Tobacco Use Types Packs/Day Years [...] on file Legal Sex Female 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 * Telephone Encounter - Garrett Sanders MD - 08/22/2024 1:25 PM CDT Journavx is pain medication, likely safer than opioid. Likely Linseed Oil Press Tender may have prescribed. Ok to discontinue abilify. Cont. Olanzapine. documented in this encounter Plan of Treatment Not on file documented as of this encounter Visit Diagnoses Not on filedocumented in this encounter Discontinued Medications Medication Sig Discontinue Reason Start Date End Da te ARIPiprazole (ABILIFY) 5 mg tablet Take 1 tablet (5 mg total) by mouth daily 07/28/2024 08/22/2024 documented as of this encounter Care Teams Whiteprinting Machine Operator Relationship Specialty Start Date End Date Garrett Sanders MD [address] [facility] [place] [address] PCP - General Family Medicine 04/09/23 documented as of this encounter
--- OUTSIDE RECORDS SUMMARY | 2024-08-23 01:30 | XMS_ITS | Data Portability ---
Author Organization [facility] Story Address [address] [place] [address] Assessment Encounter Date Assessment Date Assessment LastModified [...] recorded. Lab hsv-2 igg Ab, serum 2023 [facility] (Lab), [address] [place], [address], 4 02:06:20 hbcab (hepatitis B core Ab) igm, serum 2023 [facility] (Lab), [address] [place], [address], 4 02:06:20 HBsAg (hepatitis B surface Ag), serum 2023 [facility] (Lab), [address] [place], [address], 4 02:06:17 hepatitis C virus Ab, serum [address] [facility] (Lab), [address], [place], [address], 4 02:06:18 HIV 1+2 AB + HIV 1 p24 Ag, qualitative immunoassay , serum [address] [facility] (Lab), [address], [place], [address], 4 02:06:17 RPR (rapid plasma reagin), serum [address] [facility] (Lab), [address], [place], [address], 4 02:06:20 CBC w/ auto diff [address] [facility] (Lab), [address], [place], [address], 4 02:06:16 dhea-sulfat e, serum [address] [facility] (Lab), [address], [place], [address], 4 02:06:17 hormone panel, serum or plasma [address] [facility] (Lab), [address], [place], [address], 4 02:06:19 progesteron e, serum [address] [facility] (Lab), [address], [place], [address], 4 02:06:18 prolactin, serum [address] [facility] (Lab), [address], [place], [address], 4 02:06:18 shbg (sex hormone-bin ding globulin), serum [address] [facility] (Lab), [address], [place], [address], 4 02:06:18 TSH, serum or plasma [address] [facility] (Lab), [address], [place], [address], 4 02:06:19 testosteron e free/testos terone total, ratio, serum [address] [facility] (Lab), [address], [place], [address], 4 02:06:20 urinalysis, dipstick 2022 023 [email or web address] , [address], [address], [place], [address], 3 11:45:12 Referral None recorded. Procedures None recorded. Surgeries laparoscopy , diagnostic (SURG) 2024 025 [facility], [address] [facility] [address], [place], [address], 5 14:34:35 Imaging US, pelvis [address], [address], [place], [address], 4 20:23:49 US, transvagina l [address], [address], [place], [address], 4 20:23:49 Medication Orders Macrobid 100 mg capsule 2022 023 [id number], [address], [place], [id number], 4 16:18:20 Patient TargetsNo targets recorded. Patient [...] donaldson , Rose Haro cted: 10/11 1338 [facility] [facility] [employer] Order ing Locat ion: [place] Patho logy [...] as clini karli warra nted. Not Available [facility] (Lab) [address], [place], [address], 10/13/2022 19:56:22 10/12/19 23 10/11/2022 TRICH OMONA S VAGIN CUCA (RRNA ) trichomonas vaginalis ribosomal RNA (rrna) Negati ve negati ve Not Available [facility] (Lab) [address], [place], [address], 10/13/2022 19:56:23 10/12/19 23 10/11/2022 CT/GC (STEFANY) , THINP REP VIAL chlamydia trachomatis, PCR Negati ve negati ve Not Available [facility] (Lab) [address] [place], [address], 10/13/2022 19:56:24 10/12/19 23 10/11/2022 CT/GC (STEFANY) , THINP REP VIAL neisseria gonorrhoeae, PCR Negati ve negati ve Not Available [facility] (Lab) [address], [place], [address], 10/13/2022 19:56:24 10/12/19 23 10/11/2022 urina lysis , dipst ick Protein trace Not Available [facility] [address], [place], [address], 10/11/2022 11:34:25 10/12/19 23 10/11/2022 urina lysis , dipst ick pH 5 Not Available [facility] [address], [place], [address], 10/11/2022 11:34:25 10/12/19 23 10/11/2022 urina lysis , dipst ick Specific [place] 1.015 Not Available [facility] [address], [place], [address], 10/11/2022 11:34:25 03/12/20 24 03/12/2024 CT/GC AND TRICH OMONA S VAGIN CUCA (RRNA ), URINE chlamydia trachomatis, PCR Negati ve negati ve Not Available [facility] (Lab) [address], [place], [address], 03/13/2024 13:33:23 03/12/20 24 03/12/2024 CT/GC AND TRICH OMONA S VAGIN CUCA (RRNA ), URINE neisseria gonorrhoeae, PCR Negati ve negati ve Not Available [facility] (Lab) [address], [place], [address], 03/13/2024 13:33:23 03/12/20 24 03/12/2024 CT/GC AND TRICH OMONA S VAGIN CUCA (RRNA ), URINE trichomonas vaginalis ribosomal RNA (rrna) Negati ve negati ve Not Available [facility] (Lab) [address], [place], [address], 03/13/2024 13:33:23 03/12/20 24 03/12/2024 CBC W/DIF F WBC 10.2 10'3/ uL 3.5-10 .5 Not Available [facility] (Lab) [address], [place], [address], 03/18/2024 02:06:16 03/12/20 24 03/12/2024 CBC W/DIF F RBC 4.76 10'6/ uL (based on docume nted legal sex) 3.80-5 .20 Not Available [facility] (Lab) [address], [place], [address], 03/18/2024 02:06:16 03/12/20 24 03/12/2024 CBC W/DIF F HGB 15.1 g/dL (based on docume nted legal sex) 11.6-1 5.4 Not Available [facility] (Lab) [address], [place], [address], 03/18/2024 02:06:16 03/12/20 24 03/12/2024 CBC W/DIF F HCT 46.6 % (based on docume nted legal sex) 34.0-4 5.0 high Not Available [facility] (Lab) [address], [place], [address], 03/18/2024 02:06:16 03/12/20 24 03/12/2024 CBC W/DIF F MCV 97.9 fL 80.0-9 9.0 Not Available [facility] (Lab) [address], [place], [address], 03/18/2024 02:06:16 03/12/20 24 03/12/2024 CBC W/DIF F MCH 31.7 pg 27.0-3 4.0 Not Available [facility] (Lab) [address], [place], [address], 03/18/2024 02:06:16 03/12/20 24 03/12/2024 CBC W/DIF F MCHC 32.4 g/dL 32.0-3 5.5 Not Available [facility] (Lab) [address], [place], [address], 03/18/2024 02:06:16 03/12/20 24 03/12/2024 CBC W/DIF F RDW 12.9 % 11.0-1 5.0 Not Available [facility] (Lab) [address], [place], [address], 03/18/2024 02:06:16 03/12/20 24 03/12/2024 CBC W/DIF F plt 419 10'3/ uL 150-40 0 high Not Available [facility] (Lab) [address], [place], [address], 03/18/2024 02:06:16 03/12/20 24 03/12/2024 CBC W/DIF F MPV 10.5 fL 8.8-12 .1 Not Available [facility] (Lab) [address], [place], [address], 03/18/2024 02:06:16 03/12/20 24 03/12/2024 CBC W/DIF F NRBC's 0.0 % 0.0 Not Available [facility] (Lab) [address], [place], [address], 03/18/2024 02:06:16 03/12/20 24 03/12/2024 CBC W/DIF F absolute NRBCs 0.0 10'3/ uL no refere nce range establ ished Not Available [facility] (Lab) [address], [place], [address], 03/18/2024 02:06:16 03/12/20 24 03/12/2024 CBC W/DIF F neutrophils 62.8 % 34.0-7 3.0 Not Available [facility] (Lab) [address], [place], [address], 03/18/2024 02:06:16 03/12/20 24 03/12/2024 CBC W/DIF F lymphocytes 24.6 % 15.0-5 0.0 Not Available [facility] (Lab) [address], [place], [address], 03/18/2024 02:06:16 03/12/20 24 03/12/2024 CBC W/DIF F monocytes 9.7 % 1.0-15 .0 Not Available [facility] (Lab) [address], [place], [address], 03/18/2024 02:06:16 03/12/20 24 03/12/2024 CBC W/DIF F eosinophils 1.4 % 0.0-8. 0 Not Available [facility] (Lab) [address], [place], [address], 03/18/2024 02:06:16 03/12/20 24 03/12/2024 CBC W/DIF F basophils 1.0 % 0.0-2. 0 Not Available [facility] (Lab) [address], [place], [address], 03/18/2024 02:06:16 03/12/20 24 03/12/2024 CBC W/DIF F immature granulocytes 0.5 % no define d refere nce range Not Available [facility] (Lab) [address] [place], [address], 03/18/2024 02:06:16 03/12/20 24 03/12/2024 CBC W/DIF F absolute neutrophils 6.4 10'3/ uL 1.5-8. 0 Not Available [facility] (Lab) [address] [place], [address], 03/18/2024 02:06:16 03/12/20 24 03/12/2024 CBC W/DIF F absolute lymphocytes 2.5 10'3/ uL 1.0-4. 0 Not Available [facility] (Lab) [address], [place], [address], 03/18/2024 02:06:16 03/12/20 24 03/12/2024 CBC W/DIF F absolute monocytes 1.0 10'3/ uL 0.2-1. 0 Not Available [facility] (Lab) [address], [place], [address], 03/18/2024 02:06:16 03/12/20 24 03/12/2024 CBC W/DIF F absolute eosinophils 0.1 10'3/ uL 0.0-0. 6 Not Available [facility] (Lab) [address], [place], [address], 03/18/2024 02:06:16 03/12/20 24 03/12/2024 CBC W/DIF F absolute basophils 0.1 10'3/ uL 0.0-0. 3 Not Available [facility] (Lab) [address], [place], [address], 03/18/2024 02:06:16 03/12/20 24 03/12/2024 CBC W/DIF [...] resul ts are expec carol. Not Available [facility] (Lab) [address], [place], [address], 03/18/2024 02:06:16 03/12/20 24 03/12/2024 HEPAT ITIS B SURFA CE ANTIG EN hepatitis B surface antigen Non-re active non-re active This assay was perfo rmed using [employer] ratio n reage nts and test kits. Value s obtai cora with other assay metho ds or kits canno t be used inter daily eagayley . Not Available [facility] (Lab) [address], [place], [address], 03/18/2024 02:06:17 03/12/20 24 03/12/2024 HIV 1/2 ANTIG EN/AN TIBOD Y, REFLE X CONFI RMATI ON HIV antigen/anti body Nonrea ctive nonrea ctive HIV-1 antig en and HIV-1 /HIV- 2 antib odies were not detec carol. No labor atory evide nce of HIV infec tion. Not Available [facility] (Lab) [address], [place], [address], 03/18/2024 02:06:17 03/12/20 24 03/12/2024 DHEA SULFA TE DHEA-sulfate 144 ug/dL Femal e Range s Age(y ) Range (ug/d L) 10-15 34-28 0 15-20 65-36 8 20-25 148-4 07 25-35 99-34 0 35-45 61-33 7 45-55 35-25 6 55-65 19-20 5 65-75 9-246 > 75 12-15 4 Not Available [facility] (Lab) [address], [place], [address], 03/18/2024 02:06:17 03/12/20 24 03/12/2024 HEPAT ITIS C ANTIB ANIKET SCREE N, REFLE X TO CONFI RMATI ON hepatitis C antibody Non-re active non-re active Antib odies to HCV Not Detec carol, does not exclu de the possi bilit y of expos ure to HCV. Not Available [facility] (Lab) [address], [place], [address], 03/18/2024 02:06:18 03/12/20 24 03/12/2024 HUMAN SEX HORMO NE HANNAH NG GLOBU [place] sex hormone binding globulin 16.8 nmole s/L 18.2-1 35.5 low Not Available [facility] (Lab) [address], [place], [address], 03/18/2024 02:06:18 03/12/20 24 03/12/2024 PROLA CTIN prolactin, total 25.70 NG/mL 4.79-2 3.30 high This assay was perfo rmed using [employer] ratio n reage nts and test kits. Value s obtai cora with other assay metho ds or kits canno t be used inter [facility] . Not Available [facility] (Lab) [address] [place], [address], 03/18/2024 02:06:18 03/12/20 24 03/12/2024 PROGE STERO NE progesterone 6.69 NG/mL This assay was perfo rmed using [employer] ratio n reage nts and test kits. Value s obtai cora with other assay metho ds or kits canno t be used inter [facility] . Femal e Proge stero ne Range s: Folli cular phase 0.06- 0.89 ng/mL Ovula tion phase 0.12- 12.00 ng/mL Lutea l phase 1.83- 23.90 ng/mL Postm enopa usal <0.05 -0.13 ng/mL Healt hy Pregn ant Women 1st Trime ster 11.0- 44.30 2nd Trime ster 25.40 -83.3 0 3rd Trime ster 58.70 -214. 00 Not Available [facility] (Lab) [address] [place], [address], 03/18/2024 02:06:18 03/12/20 24 03/12/2024 FSH, LH, ESTRA DIOL estradiol 95.5 pg/mL This assay was perfo rmed using [employer] reage nts and test kits. Value s obtai cora with other assay metho ds or kits canno t be used inter [facility] . Femal e Estra diol Range s: Folli cular phase 12.4- 233 pg/mL Ovula tion phase 41.0- 398 pg/mL Lutea l phase 22.3- 341 pg/mL Postm enopa usal <5-13 8 pg/mL Healt hy Pregn ant Women 1st Trime ster 154-3 243 pg/mL 2nd Trime ster 1561- 31772 pg/mL 3rd Trime ster 8525- >3000 0 pg/mL Not Available [facility] (Lab) [address] [place], [address], 03/18/2024 02:06:19 03/12/20 24 03/12/2024 FSH, LH, [...] use: 25.8- 134.8 mIU/m L Not Available [facility] (Lab) [address], [place], [address], 03/18/2024 02:06:19 03/12/20 24 03/12/2024 FSH, LH, [...] use: 7.7-5 8.5 mIU/m L Not Available [facility] (Lab) [address] [place], [address], 03/18/2024 02:06:19 03/12/20 24 03/12/2024 T4 FREE T4, free 0.77 NG/dL 0.60-1 .40 This assay is susce ptibl e to inter feren ce from high level s of bioti n which may false ly eleva te resul ts. Gifty carreno late with clini lakisha findi ngs. Not Available [facility] (Lab) [address], [place], [address], 03/18/2024 02:06:19 03/12/20 24 03/12/2024 TSH, REFLE X FREE T4 TSH 101.21 uIU/m L 0.30-5 .33 high Not Available [facility] (Lab) [address], [place], [address], 03/18/2024 02:06:19 03/12/20 24 03/12/2024 HERPE S SIMPL EX VIRUS TYPE 2 SPECI FIC AB, IGG herpes simplex virus 2 IgG Negati ve negati ve Not Available [facility] (Lab) [address], [place], [address], 03/18/2024 02:06:20 03/12/20 24 03/12/2024 HERPE S SIMPL EX VIRUS TYPE 2 SPECI FIC AB, IGG herpes simples virus 2 IgG, quant <0.2 ai 0.0-0. 8 Not Available [facility] (Lab) [address], [place], [address], 03/18/2024 02:06:20 03/12/20 24 03/12/2024 HEPAT ITIS B CORE, IGM hepatitis B core IgM antibody Non-re active non-re active IgM anti- HBc not detec carol. Does not exclu de the possi bilit y of expos ure to or infec tion with HBV. Not Available [facility] (Lab) [address], [place], [address], 03/18/2024 02:06:20 03/12/20 24 03/12/2024 RPR SCREE N, REFLE X TITER /CONF IRMAT ION RPR screen Nonrea ctive nonrea ctive Not Available [facility] (Lab) [address] [place], [address], 03/18/2024 02:06:20 03/12/20 24 03/12/2024 TESTO STERO NE, FREE( DIALY SIS) AND TOTAL (LC/M S/MS) testosterone , total 26 NG/dL 2-45 For addit ional infor gifty oliva e refer to http: //[facility].que stdia gnost ics.c om/fa q/ Total Testo stero neLCM SMSFA Q165 (This link is being provi ded for infor matio nal/ educa diana l purpo ses only. ) This test was devel oped and its genia tical perfo rmanc e nasra cteri stics have been deter mined by [employer] s [place]. It has not been clear ed or appro thu by the U.S. Food and Drug Admin istra tion. This assay has been valid ated pursu ant to the CLIA regul ation s and is used for clini lakisha purpo ses. Not Available [facility] (Lab) [address], [place], [address], 03/18/2024 02:06:20 03/12/20 24 03/12/2024 TESTO STERO NE, FREE( DIALY SIS) AND TOTAL (LC/M S/MS) testosterone , free 5.1 pg/mL 0.1-6. 4 This test was devel oped and its genia tical perfo rmanc e nasra cteri stics have been deter mined by [employer] [place], [place]. It has not been clear ed or appro thu by the U.S. Food and Drug Admin istra tion. This assay has been valid ated pursu ant to the CLIA regul ation s and is used for clini lakisha purpo ses. Perfo rming Organ izati on [facility] dem[facility] n: Site ID: AMD Name: [employer] Brian LocalBonusi annika Addre ss: [id number] [place], [place] Direc tor: Allegra Archibald MD PhD Not Available [facility] (Lab) [address], [place], [address], 03/18/2024 02:06:20 03/27/20 24 03/27/2024 PLATE LET COUNT plt 416 10'3/ uL 150-40 0 high Not Available [facility] (Lab) [address], [place], [address], 03/28/2024 05:46:43 03/27/20 24 03/27/2024 TSH TSH 81.15 uIU/m L 0.30-5 .33 high Not Available [facility] (Lab) [address], [place], [address], 03/28/2024 05:46:44 02/14/20 24 02/14/2024 US, pelvi s No observ ation record ed. [email or web address], [place], [address], 02/14/2024 18:05:32 02/14/20 24 02/14/2024 US, trans vagin al No observ ation record ed. [email or web address], [place], [address], 02/14/2024 18:05:41 02/14/20 24 02/14/2024 US, pelvi s No observ ation record ed. [email or web address] [address], [place], [address], 02/14/2024 20:20:04 Result Notes None recorded. Problems Name Problem SNOMED Code Status Onset Date Resolution Date Notes Provider Name and Address Organization Details Recorded Time Syphilis test finding 775812413 Completed 201809/22/2021 Encounter for STD screening ;Recorded Elsewhere : No Locati on: [facility] So urce: EHR Chron ic: N Practic e ID: [id number] Bill able Time: 01:15:00 PM Tanika Silver [place], [place] - [facility] 2 15:03:32 Finding of pattern of menstrua l cycle 863044567 Completed 201509/22/2021 Menometro rrhagia;R ecorded Elsewhere : No Locati on: [facility] So urce: EHR Chron ic: N Practic e ID: [id number] Bill able Time: 10:30:00 AM Tanika [facility] 2 15:03:31 Pelvic and perineal pain 486111320 Completed 201709/22/2021 Pelvic and perineal pain;Raghavendra rded Elsewhere : No Locati on: [facility] So urce: EHR Chron ic: N Practic e ID: [id number] Bill able Time: 11:00:00 AM Tanika [facility] 2 15:03:31 Insertio n of intraute rine contrace ptive device Completed 201709/22/2021 Encounter for insertion of intrauter ine contracep tive device;Re corded Elsewhere : No Locati on: [facility] So urce: EHR Chron ic: N Practic e ID: [id number] Bill able Time: 01:30:00 PM Tanika [facility] [address] 15:03:[address] Concept Completed 201709/22/2021 Encntr for routine child health exam w/o abnormal findings; Recorded Elsewhere : No Locati on: [facility] So urce: EHR Chron ic: N Practic e ID: [id number] Bill able Time: 10:30:00 AM Tanika [facility] 2 15:03:31 Localize d swelling , mass and lump, neck Completed 201709/22/2021 Localized swelling, mass and lump, neck;Raghavendra rded Elsewhere : No Locati on: [facility] So urce: EHR Chron ic: N Practic e ID: [id number] Bill able Time: 10:30:00 AM Tanika [facility] 2 15:03:[address] Concept Completed 201709/22/2021 Well woman check w/o abnormal finding;R ecorded Elsewhere : No Locati on: [facility] So urce: EHR Chron ic: N Practic e ID: [id number] Bill able Time: 10:30:00 AM Tanika Silver [facility] 2 15:03:31 Contrace ptive sheath status [id number] Completed 201809/22/2021 Encounter for routine checking of intrauter ine contracep tive device;Re corded Elsewhere : No Locati on: [facility] So urce: EHR Chron ic: N Practic e ID: [id number] Bill able Time: 09:45:00 AM Tanika Silver [facility] 2 15:03:31 Problem Notes None recorded. Procedures Surgical History Date Name Laterality Status Provider Name and Address Organization Details Recorded Time 3 Date of Last Pap Smear completed Kerri Delaney [facility] 03/12/2024 16:19:24 9 Thyroid Surgery completed Purnima Wallace [facility] 03/14/2022 17:28:33 Imaging Results Imaging Date Name Status LastModified by Organization Details LastModified Time 02/14/2024 US, pelvis completed [email or web address], [place], [address], 02/14/2024 18:05:32 02/14/2024 [email or web address] [address], [place], [address], 02/14/2024 18:05:41 02/14/2024 US, pelvis completed [email or web address], [place], [address], 02/14/2024 20:20:04 Procedure Notes None recorded. Medical [...] ed Elsewher e: Yes Loca tion: [facility] odify By: marcelina hernadez DateTime [...] ed Juan C e: No Locat ion: [facility] odify By: janelle weir DateTime : 10/25/19 [...] Prescrib ed Elsewher e: No Locat ion: [facility] odify By: [email or web address] Garcia ncounter DateTime : 11/17/19 16 04:30:01 PM Not Available Not Available Not Available Lomedia 24 Fe 1 mg-20 mcg (24)/75 mg (4) tablet TAKE 1 TABLET BY ORAL ROUTE EVERY DAY 02/27 completed Prescrib ed Elsewher e: No Locat ion: [facility] odify By: janelle Garcia ncounter DateTime : 09/05/19 17 02:10:48 PM [...] Updated DateTime 10/11/2022 175.26 cm 46.1 kg/m2 810792.8 2 g 115 mm[Hg] 75 mm[Hg] Kerri Delaney [facility] 3 11:30:12 Date Recorded Body height Body mass index (BMI) Body weight Systolic blood pressure Diastolic blood pressure Provider Name and Address Organization Details Last Updated DateTime 03/12/2024 175.26 cm 40.3 kg/m2 454386.7 2 g 132 mm[Hg] 86 mm[Hg] Kerri Rhett [facility] 4 16:17:16 Date Recorded Body height Body mass index (BMI) Body weight Systolic blood pressure Diastolic blood pressure Provider Name and Address Organization Details Last Updated DateTime 04/09/2024 175.26 cm 41.6 kg/m2 576215.0 5 g 136 mm[Hg] 86 mm[Hg] Tami Gracy [facility] 5 16:37:02 Social History Question Answer Notes LastModified by Organizat ion Details LastModified Time Tobacco Smoking Status Never Smoker Purnima boyce, [facility] 03/14/2022 17:28:01 Are You Blind Or Do You Have Difficulty Seeing? No Information n ot available 03/14/2022 What Is Your Level Of Caffeine Consumption? Occasional Information not available 03/14/2022 In The 14 Days Before Symptom Onset, Have You Had Close Contact With A Laboratory-confirm ed COVID-19 While That Case Was Ill? No [email or web address] Information n ot available 03/14/2022 In The 14 Days Before Symptom Onset, Have You Had Close Contact With A Person Who Is Under Investigation For COVID-19 While That Person Was Ill? No [email or web address] Information not available 03/14/2022 Have You Been To An Area Known To Be High Risk For COVID-19? No [email or web address] Information not available 03/14/2022 Are You Deaf Or Do You Have Serious Difficulty Hearing? No Information not available 03/14/2022 What Type Of Diet Are You Following? REGULAR [email or web address] Information n ot available 03/14/2022 Have You Ever Been Counseled For Unhealthy Alcohol Use? No [email or web address] Information not available 03/14/2022 Do You Use Your Seat Belt Or Car Seat Routinely? Yes [email or web address] Information not available 03/14/2022 Do You Have Smoke And Carbon Monoxide Detectors In Your Home? Yes [email or web address] Information not available 03/14/2022 Do You Use Sunscreen Routinely? Yes [email or web address] Information not available 03/14/2022 Has Tobacco Cessation Counseling Been Provided? No Information not available 03/14/2022 Do You Have Difficulty Walking Or Climbing Stairs? No [email or web address] Information not available 03/14/2022 Sex: Unknown Functional Status Question Answer Note LastModified by Organizat ion Details LastModified Time Do you use any illicit or recreational drugs? No Information not available 03/14/2022 Do you or have you ever used any other forms of tobacco or nicotine? No [email or web address] Information not available 03/14/2022 What is your level of alcohol consumption? Occasional [email or web address] Information not available 03/14/2022 Are you able to walk? YESWOREST [email or web address] Information not available 03/14/2022 Are you able to care for yourself? Yes [email or web address] Information n ot available 03/14/2022 Do you have difficulty dressing or bathing? No [email or web address] Information not available 03/14/2022 What is your exercise level? Occasional [email or web address] Information not available 03/14/2022 Mental Status Question Answer Note LastModified by Organization D etails LastModified Time Do you feel stressed (tense, restless, nervous, or anxious, or unable to sleep at night)? [id number] [email or web address] Information not available 03/14/2022 Family History Relationship Description Onset Age of this Age Resolved Age Notes LastModified by Organization Details LastModified Time Mother Asthma [email or web address] Not available 11/26/2019 16:58:51 Paternal Grandfather Diabetes mellitus Not available 11/25 16:59:00 Paternal Grandfather Hypertensive disorder Not available 11/25 16:59:09 Paternal Grandfather Heart disease [email or web address] Not available 11/25 16:59:22 Paternal Grandfather Malignant tumor of colon [email or web address] Not available 11/25 16:59:34 Maternal Grandmother Heart disease [email or web address] Not available 11/25 16:59:55 Maternal Grandmother Hypertensive disorder [email or web address] Not available 11/25 17:00:08 Maternal Grandfather Heart disease [email or web address] Not available 11/25 17:00:21 Father Asthma [email or web address] Not available 11/26/2019 17:00:34 Paternal Grandmother Malignant tumor of breast [email or web address] Not available 2024 16:37:55 Medical History Condition [...] SNOMED-CT Code Diagnosis ICD10 Code Diagnosis Note [id number] [facility] [address] [address] 03/23/2023 13:50:24 03/27/2023 09:10:53 [id number] Magali Gleason [facility] [address] [address] 09/22/2021 15:31:57 09/23/2021 15:52:47 Gynecologic examination [id number] Z01.419 Take Calcium with Vitamin D 1200mg [...] Screen naRoutine Labs na Pain in pelvis [id number] R10.2 Today we agreed to update vaginal [...] All questions answered to patient satisfacti on. [id number] Cristian Ruelas MD [facility] [address] [address] 09/27/2021 16:41:33 09/27/2021 17:24:05 Pain in pelvis 47012388 R10.2 [id number] Magali Gleason [facility] [address],[facility] [place] [address] 10/06/2021 15:30:10 10/06/2021 16:12:13 Pain in pelvis [id number] R10.2 Reviewed US which was wnl.Her pelvic pain sx's have resolvedPo ssible cyst had ruptured prior to USMonitor for now Malaise and fatigue 2710 79082 R23.2 Voices that she is generally not [...] taken today.Offe red to drive her to [facility].S he declined.V oices that she feels she can drive herself.Felix garcia has food in the car as well & states she will eat a few bites & finish the water given.Her exam was wnl except for her presentati on flushing, fatigue, profuse sweating.I again offered to arrange [facility] to hospital for full evaluation and she declined but is agreeable to going herself. Time spent in visit is a total of 25 mins with at least 50% of visit consisting of counseling and review of plan of care. [id number] Magali Gleason [facility] [address],[facility] [place] [address] 11/23/2021 16:35:11 11/23/2021 17:11:18 Vaginitis [id number] N76.0 Suspect BV & yeastWill treat for BV & yeastCall if sx's worsenIf swab was sent will be notified via portal unless otherwise indicated. Time spent in visit is a total of 15 mins with at least 50% of visit consisting of counseling and review of plan of care. [id number] Magali Gleason [facility] [address],[place] [address] 03/14/2022 17:01:44 03/15/2022 15:51:39 Urinary symptoms [id number] R39.9 Vaginitis 52572777 N76.0 Suspect yeastWill treat yeastCall if sx's worsenIf swab was sent will be notified via portal unless otherwise indicated. Counseling /Therapist resources given including psychology todayLittlecast Time spent in visit is a total of 15 mins with at least 50% of visit consisting of counseling and review of plan of care. [id number] Magali Gleason [facility] [address],[place] [address] 10/11/2022 11:18:54 10/11/2022 11:49:53 Dysuria [id number] R30.0 Suspect UTISent cultureTre atedCounse led on medication R/B's, Most common side effects, & use. All questions were answered to patient satisfacti on. Gynecologi c examination [id number] Z01.419 Take Calcium with Vitamin D 1200mg [...] c Screen discussedC olon Screen naDexa Screen naRuc[facility] [place] [id number] Cristian Ruelas MD [facility] [address] [address] 02/14/2024 16:57:53 02/14/2024 17:33:10 Pain in pelvis 15698846 R10.2 [id number] Cristian Ruelas MD [facility] [address] [address] 03/12/2024 15:30:34 03/13/2024 09:49:23 Pain in pelvis 17944651 R10.2 23-year-ol d female with multiple concerns. [...] hemorrhage and infection. Abnormal u terine bleeding [id number] 9100 N93.9 Sexually t ransmitted infectious disease [id number] A64 [id number] Cristian Ruelas MD [facility] [address] [address] 04/09/2024 16:07:43 04/11/2024 14:25:38 Pain in pelvis 52765625 R10.2 this patient is a 23-year-ol d [...] Kelsey Member ID Guarantor Name 10/11/2022 1 [facility] ON OR AFTER 09/30/20 (MEDICAID REPLACEMENT - HMO) Mervat Werner [id number] Mervat E Werner 03/23/2023 1 [facility] - DOS ON OR AFTER 20 (MEDICAID REPLACEMENT - HMO) Mervat Werner [id number] Mervat E Werner 02/14/2024 1 [facility] - DOS ON OR AFTER 20 (MEDICAID REPLACEMENT - HMO) Mervat Werner [id number] Mervat E Werner 03/12/2024 1 [facility] - DOS ON OR AFTER 20 (MEDICAID REPLACEMENT - HMO) Mervat Werner [id number] Mervat E Werner 04/09/2024 1 *SELF PAY* [...] Followed with yearly pap smears Magali Gleason, [facility]- [address], [place], [address], [facility] 10/11/2022 11:48:59 03/12/2024 text/html 23-year-old fema mars with multiple concerns. Her main concern is [...] infection. Cristian Ruelas MD [address], [place], [address], [facility] 03/12/2024 19:07:15 04/09/2024 text/html 23-year-old fema [...] infection. Cristian Ruelas MD [address], [place], [address], [facility] 04/10/2024 22:44:59 OBGyn Episode No OBEpisode recorded.
--- OUTSIDE RECORDS SUMMARY | 2024-08-23 01:30 | XMS_ITS | Encounter Summary ---
Author Organization [facility] Address [address] [place] [address] Care Team Providers Care Electronic Health Records Specialist Name Role Phone Garrett Sanders MD Primary Care Provider [phone] Reason for Visit * Reason Onset Date Comments Medical Question/Miscellaneous 08/05/[address] HEAD WITHOUT CONTRAST 08/05/2024 Encounter Details Date Type Department Care Team (Late st Contact Info) Description 08/05/2024 Telephone [facility] Family Medicine at [address] [place] [address] Garrett Sanders MD [address] [place] [id number] Medical Question/Miscellaneous ; PEER TO PEER CT HEAD WITHOUT CONTRAST Social History Tobacco Use Types Packs/Day Years [...] on file 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 * Telephone Encounter - Shaunna Ewing - 08/05/2024 9:[address] Head without contrast was denied - Peer to peer can be done by calling [email or web address] at - does not have to be scheduled. Tracking# [id number] Denial is in Epic- they needed notes from provider that showed patient had memory tests (low score on cognitive testing) that showed memory problems. They also needed recent blood test results. Cbc, Electrolytes, liver function, vitamin B12 and thyroid function test that do not explain your memory problems. Why patient couldn't have an Mri Brain. [facility] * Telephone Encounter - Verona Mclean - 08/05/2024 9:27 AM CDT Medical Question/Miscellaneous Caller???s Concern: [facility] pre arrival calling to notify pcp office that the authorization for the CT neuro wo contrast scheduled for tomorrow has been denied. Does message need to be routed? Yes-Action Needed documented in this encounter Plan of Treatment Not on file documented as of this encounter Visit Diagnoses Not on filedocumented in this encounter Care Teams Electronic Health Records Specialist Relationship Specialty Start Date End Date Garrett Sanders MD [address] [facility] [address] [address] PCP - General Family Medicine 04/09/23 documented as of this encounter
--- OUTSIDE RECORDS SUMMARY | 2024-08-23 01:30 | XMS_ITS | Encounter Summary ---
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 Gender Identity Not on file Sexual Orientation Not on file documented as of this encounter Plan of Treatment Not on file documented as of this encounter Visit Diagnoses Not on filedocumented in this encounter Additional Health Concerns Infection Onset Date Last Indicated Resolved Time COVID: Suspected 02/14/2023 02/14/2023 02/14/2023 2:34 PM MANAGER SPA COVID: Suspected 04/09/2023 04/09/2023 04/09/2023 11:05 PM MANAGER SPA documented as of this encounter Care Teams Ssis Architect Relationship Specialty Start Date End Date Samantha Olsen PA PCP - General Family Medicine 12/13/21 01/28/23 Fatuma Theodore NP [address] [facility] [address] [place] [address] [place] [address] PCP - General Family Medicine 01/29/23 04/08/23 Garrett Sanders MD [address] [facility] [address] [place] [address] [place] [address] PCP - General Family Medicine 04/09/23 documented as of this encounter
--- OUTSIDE RECORDS SUMMARY | 2024-08-23 01:30 | XMS_ITS | Clinical Summary ---
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 Gender Identity Not on file Sexual Orientation [...] 12/30/2002, 05/08/2001, 03/12/2001, Additional history exists Insurance [facility] MEDICAID [facility] MEDICAID Advance Directives For more information, please contact: [phone] * Default Full Code - Needs Discussion (Latest Code Status on File) Date Activated Date Inactivated Comments 09/04/2021 8:56 AM 09/04/2021 2:27 PM * Full Code Date Activated Date Inactivated Comments 05/13/2018 1:26 PM 05/14/2018 11:46 AM Care Teams Publishing Director Relationship Specialty Start Date End Date Giancarlo Yeh MD PCP - General Family Practice 09/03/21
--- OUTSIDE RECORDS SUMMARY | 2024-08-23 01:30 | XMS_ITS | Encounter Summary ---
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 Gender Identity Not on file Sexual Orientation Not on file documented as of this encounter Plan of Treatment Not on file documented as of this encounter Visit Diagnoses Not on filedocumented in this encounter Additional Health Concerns Infection Onset Date Last Indicated Resolved Time COVID: Suspected 02/14/2023 02/14/2023 02/14/2023 2:34 PM HAND TUBE WINDER COVID: Suspected 04/09/2023 04/09/2023 04/09/2023 11:05 PM HAND TUBE WINDER documented as of this encounter Care Teams Primary Products Inspectors Relationship Specialty Start Date End Date Samantha Olsen PA PCP - General Family Medicine 12/13/21 01/28/23 Fatuma Theodore NP [address] [facility] [address] [place] [address] [place] [address] PCP - General Family Medicine 01/29/23 04/08/23 Garrett Sanders MD [address] [facility] [address] [place] [address] [place] [address] PCP - General Family Medicine 04/09/23 documented as of this encounter
[2024-08-23 01:46] VITALS: BP 157/94; PULSE 107; RESP 18; TEMP 37.4; O2SAT 100
--- NOTE | 2024-08-23 01:53 | PC.NURSE ---
Discussed patients SI screening of moderate risk d/t having SI with a plan in the last 3 months with MD. Patient denies current SI. Patient denies her visit being psych related. MD aware. Will hold of on psych precautions until eval per MD.
--- NOTE | 2024-08-23 02:40 | ED.LOWEXIN ---
HPI - Extremity Injury (Lower) General Chief Complaint: Extremity Injury, Lower Stated Complaint: R leg cramping/pain Time Seen by Provider: 08/23/24 02:21 Source: patient Mode of arrival: ambulatory Limitations: no limitations History of Present Illness HPI Narrative: Patient presents with complaint of posterior right leg/thigh cramps and pain. She notes the pain is caused her to fall a few times recently. In 1 instance she lost her balance when she lifted 1 of her legs and others were also related to tripping due to the pain. No history of DVT or PE. No recent travel. She does have an IUD for contraception. Not on anticoagulation but she does take aspirin for history of increased platelets. She feels a tenderness when she pushes on this area. Her primary care physician prescribed her a muscle relaxer, cyclobenzaprine 5 mg (initially 10mg but dose lowered) which she took but she states that did not really help her pain only make her drowsy. No dizziness. Denies Any paresthesias. Feels like there is tenderness when she presses on this part of her leg. Not dizzy. Patient did have a moderate risk screening score for passive suicidal ideation. We discussed this and she states that her primary care physician has been trying to help prescribe in titrate her mental health medications. She had been on olanzapine and Abilify was recently added. She does not like some of the side effects she experiences. She does currently have a referral that was placed to a psychologist/psychologist but would appreciate referrals if other resources available but this is not an active concern for her during today's visit. Related Data Home Medications ?Medication ?Instructions ?Recorded ?Confirmed ?Last Taken ?Type amlodipine 10 mg tablet 10 mg PO DAILY 05/26/24 06/06/24 06/06/24 History atenolol 50 mg tablet 50 mg PO Q24H 05/26/24 06/06/24 06/06/24 History levothyroxine 200 mcg tablet 200 mcg PO DAILY 05/26/24 06/06/24 06/06/24 History levothyroxine 25 mcg tablet 25 mcg PO DAILY 05/26/24 06/06/24 06/06/24 History naproxen 500 mg tablet 500 mg PO Q8H 05/26/24 05/26/24 Unknown History olanzapine 7.5 mg tablet 7.5 mg PO QPM 05/26/24 05/26/24 Unknown History sertraline 100 mg tablet 100 mg PO Q24H 05/26/24 05/26/24 Unknown History Allergies Allergy/AdvReac Type Severity Reaction Status Date / Time adhesive tape Allergy Intermediate Rash Verified 08/23/24 01:29 lactose AdvReac Intermediate Diarrhea Verified 08/23/24 01:29 [facility] Past Medical History Medical History Tachycardia Hypertension Hypothyroidism Depression Anxiety Thyroid cancer Surgical History Surgical History H/O partial thyroidectomy Right, 04/10/2018 Social History Social History Smoking packs per day: 1 Smoking cigarettes per day: 20.0 Years smoked: 4 Smoking pack-years: 4.00 Smoking status: Former smoker Tobacco type: cigarettes Smoking end date: 04/02/20 Additional smoking assessment comments: Vapes now, vrs smoking Alcohol intake: never Substance use type: marijuana and other Other substance usage details: Vapes and Marijuana smokes daily Living arrangements: with family Additional living arrangements comments: Brother Spiritual care concerns: No Exam Narrative: GENERAL: Well-appearing, well-nourished, and in no acute distress. HEAD: Normocephalic, atraumatic. EYES: Non injected, non icteric ENT: Nares clear, no rhinorrhea or epistaxis. Gross auditory acuity intact. NECK: Supple. No meningismus. CHEST: Speaking in full sentences. No respiratory distress. HEART: Regular rate and rhythm. . ABDOMEN: Obese but Soft, nondistended. EXTREMITIES: Normal range of motion. No lower extremity edema. No palpable mass at posterior thigh on the right where patient endorses pain; not tender to palpation. No erythema, palpable cord. Compartments soft. SKIN: Warm, dry, no rash. No erythema or ecchymosis. NEURO: No focal deficits. Alert and oriented. Answering questions. Following commands. Normal speech without aphasia or dysarthria. PSYCH: Congruent mood and affect. Course Vital Signs Vital signs: Vital Signs Temperature 99.3 F 08/23/24 01:46 Pulse Rate 107 H 08/23/24 01:46 Respiratory Rate 18 08/23/24 01:46 Blood Pressure 157/94 H 08/23/24 01:46 Pulse Oximetry 100 08/23/24 01:46 Temperature 98.7 F 08/23/24 05:31 Pulse Rate 68 08/23/24 05:31 Respiratory Rate 18 08/23/24 05:31 Blood Pressure 127/76 08/23/24 05:31 Pulse Oximetry 98 08/23/24 05:31 MDM - Extremity Injury (Lower) MDM Narrative Medical decision making narrative: Patient presents with right leg posterior thigh cramps/pain. In the emergency department she is afebrile vital signs notable for hypertension and tachycardia. Mild leukocytosis. Thrombocytosis is chronic. D-dimer normal, low suspicion for DVT given this. CPK normal. Patient has mild hypocalcemia, generally unchanged given albumin. This has been an issue before but was 9.0 in July. Will order EKG and give calcium chloride (do not have gluconate PO) and calcitriol. She states she used to take calcium gummy chews but stopped because they upset her stomach. Patient looks familiar to me and her history of hypocalcemia and description of her parathyroids being taken out and put back in is also familiar but can not find a record where I saw her. Asked if she had a record under another name and she denies so unable to merge records. Notably, QT is not prolonged. Discharged in stable condition with Rx for OTC analgesics as well as calcium supplementation and calcitriol. Advised f/u. Differential Diagnosis Differential diagnosis: Likely other (DVT, superficial thrombophelbitis, zoster, hematoma/seroma/lipoma, electrolyte abnormalities, symptomatic anemia, rhabdo) Lab Data Attestation: I reviewed the patient's lab results. 08/23/24 03:03 08/23/24 03:51 Labs: Lab Results 08/23/24 08/23/24 Range/Units 03:03 03:51 WBC 10.3 H (4.5-10.0) K/mm3 RBC 4.15 L (4.2-5.4) M/mm3 Hgb 13.1 (12.0-15.0) g/dL Hct 39.3 (37.0-47.0) % MCV 94.7 (80-100) fl MCH 31.6 (26-34) pg MCHC 33.3 (32-36) g/dl RDW 12.0 (11.5-14.5) % Plt Count 442 H (150-375) k/mm3 MPV 9.7 (7.4-10.4) fl Immature Gran % (Auto) 0.2 (0-0.5) % Neut % (Auto) 55.4 (45.5-73.1) % Lymph % (Auto) 30.3 (18.3-44.2) % Alfalfa % (Auto) 11.4 H (2.6-8.5) % Eos % (Auto) 2.1 (0-4.4) % Baso % (Auto) 0.6 (0.2-1.2) % Lymph # (Auto) 3.12 (0.9-3.2) K/mm3 Alfalfa # (Auto) 1.2 H (0.1-0.6) K/mm3 Eos # (Auto) 0.2 (0-0.3) K/mm3 Baso # (Auto) 0.1 (0.0-0.1) K/mm3 Abs Immat Gran (auto) 0.02 (0.00-0.031) K/mm3 Absolute Neuts (auto) 5.7 (1.3-6.7) K/mm3 Absolute Nucleated RBC 0.000 (0.0-0.012) K/mm3 Nucleated RBC % 0.0 (0.0-0.2) % PT 12.1 (11.1-14.7) Seconds INR 0.9 APTT 21.3 L (22.3-36.8) Seconds D-Dimer 0.48 (<0.48) ug/mL Sodium 139 (137-145) mmol/L Potassium 3.8 (3.4-5.0) mmol/L Chloride 103 (98-107) mmol/L Carbon Dioxide 27 (22-30) mmol/L Anion Gap 9 (4-12) mmol/L BUN 14 D (7-17) mg/dL Creatinine 0.76 (0.7-1.0) mg/dL Estim Creat Clear Calc 137 ml/min Estimated GFR > 60 (59 - ) Glucose 119 H (65-110) mg/dL Calcium 7.9 L (8.4-10.2) mg/dL Magnesium 1.9 (1.6-2.3) mg/dL Total Creatine Kinase 76 (30-135) U/L Albumin 4.1 (3.5-5.1) g/dL Imaging Data Attestation: I personally reviewed and interpreted this imaging study as follows: My impression: Plain film x-ray of femur negative on my independent interpretation ECG Data EKG #1: Attestation: I personally reviewed and interpreted this ECG as follows: ECG completion date: 08/23/24 ECG completion time: 05:08 Interpretation: Normal sinus rhythm at a rate of 81 beats per minute. DE interval 171. QRS 93. QT/QTC 383/420. Good R-wave progression across the precordial leads. T-wave inversion in 3 but otherwise upright in contiguous inferior leads 2 and AVF. No other T-wave inversions. Notably, QT is not prolonged. Discharge Plan Discharge Clinical Impression: Thrombocytosis, History of suicidal ideation, Hypocalcemia, Lower extremity pain, right Patient Disposition: Home Condition: Stable Instructions: Antibiotic Form, Hypocalcemia (ED), Leg Pain (ED), Suicide Prevention (ED) Additional Instructions: Acetaminophen/Tylenol (maximum 4000 mg per day) is safe to take with NSAIDs (ibuprofen/Motrin) for pain relief. For your hypocalcemia, you can take the medications prescribed. Follow-up with your primary care physician. You are also receiving general hotline numbers for mental health services. You can use these as well as following up with your primary care physician to discuss the referral that was placed for a psychologist/psychiatrist as you work on titrating your medications. Return to the emergency department with any new worsening unmanaged symptoms. Patient Language: Mohawk Prescriptions: New ibuprofen 600 mg tablet 600 mg PO TID PRN (Reason: pain) Qty: 30 0RF acetaminophen 500 mg capsule 1,000 mg PO Q6H PRN (Reason: pain) Qty: 30 0RF calcium gluconate 60 mg calcium (650 mg) tablet 60 mg PO QID 5 Days Qty: 20 0RF calcitriol 0.25 mcg capsule 0.25 mcg PO BID 5 Days Qty: 10 0RF No Action levothyroxine 25 mcg tablet 25 mcg PO DAILY levothyroxine 200 mcg tablet 200 mcg PO DAILY olanzapine 7.5 mg tablet 7.5 mg PO QPM sertraline 100 mg tablet 100 mg PO Q24H amlodipine 10 mg tablet 10 mg PO DAILY atenolol 50 mg tablet 50 mg PO Q24H naproxen 500 mg tablet 500 mg PO Q8H hydrocodone-acetaminophen 5-325 mg tablet 1 tablet PO Q4H PRN (Reason: pain) Qty: 20 0RF azithromycin 250 mg tablet See Rx Instructions .ROUTE .COMPLEX Qty: 6 0RF Rx Instructions: For 250 mg dose pack: take 500 mg today (day 1), then 250 mg for 4 days (days 2-5) Follow-up/Referrals: Rich Espinoza MD [Primary Care Provider] - Stand Alone Forms: Work/School Release IP Time of Disposition: 05:18
[2024-08-23 02:47] VITALS: PULSE 101; O2SAT 99
[2024-08-23] MEDS: HYDROcodone/acetaminophen (*CRX) 5-325 MG TABLET 1 TAB PO (02:56)
[2024-08-23 03:08] LABS: Basophils Absolute Auto 0.1 K/mm3 (0.0-0.1); Basophils Percent Auto 0.6 % (0.2-1.2); Eosinophils Absolute Auto 0.2 K/mm3 (0-0.3); Eosinophils Percent Auto 2.1 % (0-4.4); Hematocrit 39.3 % (37.0-47.0); Hemoglobin 13.1 g/dL (12.0-15.0); Immature Granulocyte Absolute 0.02 K/mm3 (0.00-0.031); Immature Granulocyte Percent A 0.2 % (0-0.5); Lymphocytes Absolute Auto 3.12 K/mm3 (0.9-3.2); Lymphocytes Percent Auto 30.3 % (18.3-44.2); Mean Corpuscular HGB Conc 33.3 g/dl (32-36); Mean Corpuscular Hemoglobin 31.6 pg (26-34); Mean Corpuscular Volume 94.7 fl (80-100); Mean Platelet Volume 9.7 fl (7.4-10.4); Monocytes Absolute Auto 1.2 K/mm3 (0.1-0.6); Monocytes Percent Auto 11.4 % (2.6-8.5); Neutrophils Absolute Auto 5.7 K/mm3 (1.3-6.7); Neutrophils Percent Auto 55.4 % (45.5-73.1); Platelet Count Result 442 k/mm3 (150-375); Red Blood Count 4.15 M/mm3 (4.2-5.4); White Blood Count 10.3 K/mm3 (4.5-10.0)
[2024-08-23 03:21] LABS: INR 0.9; Prothrombin Time 12.1 Seconds (11.1-14.7)
[2024-08-23 03:23] LABS: Partial Thromboplastin Time 21.3 Seconds (22.3-36.8)
[2024-08-23 03:27] LABS: D Dimer 0.48 ug/mL (<0.48)
--- OUTSIDE RECORDS SUMMARY | 2024-08-23 03:37 | XMS_ITS | Clinical Summary ---
Author Organization [facility] Address [address] [place] [address] Care Team Providers Care Retail Commission Sales Associate Name Role Phone Berkley De La Paz MD Primary Care Provider [phone] Berkley De La Paz MD Unavailable [phone] Source Comments [facility],non-owned Affiliates and Associated Physician Practices is amultiple site organization consisting of ambulatory clinics and hospital sitesin [place], [place], [place] and [place]. This disclosure is being madepursuant to the Care Everywhere program and may not contain all information available regarding this patient. 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 Gender Identity Not on file Sexual [...] patient's age to complete this topic Insurance [facility] MED[facility] - [place] [facility] MEDICAID - OUT OF [facility] Address: [facility] [address] [place] [address] [employer] MEDICAID - [place] [facility] Care Teams Retail Commission Sales Associate Relationship Specialty Start Date End Date Berkley De La Paz MD [address] [place] [address] [address] [place] [address] PCP - General 04/11/18 Berkley De La Paz MD [address] [place] [address] Pediatrics 04/11/18
--- OUTSIDE RECORDS SUMMARY | 2024-08-23 03:37 | XMS_ITS | Encounter Summary ---
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 Gender Identity Not on file Sexual Orientation Not on file documented as of this encounter Plan of Treatment Not on file documented as of this encounter Visit Diagnoses Not on filedocumented in this encounter Additional Health Concerns Infection Onset Date Last Indicated Resolved Time COVID: Suspected 02/14/2023 02/14/2023 02/14/2023 2:34 PM TEXTILE MACHINE OPERATOR COVID: Suspected 04/09/2023 04/09/2023 04/09/2023 11:05 PM TEXTILE MACHINE OPERATOR documented as of this encounter Care Teams Compound Specialist Relationship Specialty Start Date End Date Samantha Olsen PA PCP - General Family Medicine 12/13/21 01/28/23 Fatuma Theodore NP [address] [facility] [facility] [address] [place] [address] [place] [address] PCP - General Family Medicine 01/29/23 04/08/23 Garrett Sanders MD [address] [facility] [address] [place] [address] [place] [address] PCP - General Family Medicine 04/09/23 documented as of this encounter
--- OUTSIDE RECORDS SUMMARY | 2024-08-23 03:37 | XMS_ITS | Encounter Summary ---
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
--- OUTSIDE RECORDS SUMMARY | 2024-08-23 03:37 | XMS_ITS | Clinical Summary ---
Author Organization [facility] Address [address] [place] [address] Care Team Providers Care Waistline Joiner Overlock Name Role Phone Garrett Sanders MD Primary Care Provider Allergies Active Allergy Reactions [...] 1 tablet (100 mg total) by mouth lighter before breakfast 90 tablet 3 025 2025 [...] 1 capsule (290 mcg total) by mouth lighter before breakfast 90 capsule 3 025 2025 [...] 02/14/2023 Assessment & Plan (02/14/2023 2:58 PM SNOW REMOVAL SUPERVISOR): Warm compresses every 4-6 hours for 5-10 minutes Frequent handwashing, lid massage Doxycycline po 100 mg BID x 7 days. Sunscreen use advised. Topical erythromycin ER for worsening, pain, streaking redness, worsening swelling, vision impairment Upper respiratory tract infection 02/14/2023 Assessment & Plan (02/14/2023 2:59 PM SNOW REMOVAL SUPERVISOR): Rapid strep negative Rapid covid, flu [...] 5pm. Assessment & Plan (04/19/2023 12:26 PM SNOW REMOVAL SUPERVISOR): Recommended aggressive Lifestyle modification and weight [...] 08/30/2021 Assessment & Plan (03/12/2023 3:27 PM SNOW REMOVAL SUPERVISOR): Continue current levothyroxine dose. Will check thyroid function test and adjust levothyroxine dose accordingly. TSH goal lower normal Assessment & Plan (02/13/2022 2:37 PM SNOW REMOVAL SUPERVISOR): Continue current levothyroxine dose. Will check thyroid function test and adjust levothyroxine dose accordingly. 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 Biochemical evaluation with thyroid tumor markers. We will also obtain neck ultrasound for evaluation of the neck. If above are in acceptable range, will plan follow-up on yearly basis Assessment & Plan (02/13/2022 2:38 PM SNOW REMOVAL SUPERVISOR): No evidence of tumor recurrence on [...] 01/29/2023 Assessment & Plan (02/13/2022 2:39 PM SNOW REMOVAL SUPERVISOR): No documented low blood sugar Advised BG monitoring with symptoms to establish correlation & inform further work up Positive FLORENCIO (antinuclear antibody) 10/14/2021 01/29/2023 Rash 09/20/2021 01/29/2023 Sore throat 09/20/2021 01/29/2023 Infectious mononucleosis without complication 09/05/19 22 01/29/2023 Leg mass, left 09/09/2018 01/29/2023 Encounters Date Type Department Care Team Description 08/22/2024 Orders Only [facility] Family Medicine at [address] [place] [address] Garrett Sanders MD 08/20/2024 3:45 PM CDT Lab [facility] Outpatient Lab at [address] [phone] 08/20/2024 3:38 PM CDT - 08/20/2024 11:59 PM CDT Hospital Encounter [facility] [address] [place] [address] Post-surgical hypothyroidism Discharge Disposition: Discharge to home or self care 08/20/2024 1:30 PM CDT Office Visit [facility] [address] [place] [address] [address] [address] Socrates Contreras MD Post-surgical hypothyroidism 08/14/2024 Results Follow-Up [facility] Family Medicine at [address] [address] Garrett Sanders MD XR Foot Left 3 or More Views 08/12/2024 4:45 PM CDT - 08/12/2024 11:59 PM CDT Hospital Encounter [facility] [place] [address] Acute right ankle pain; Left foot pain; Shortness of breath Discharge Disposition: Discharge to home or self care 08/07/2024 Telephone [facility] Family Medicine at [address] [address] Garrett Sanders MD PA for pregabalin 50 mg 08/05/2024 Telephone [facility] Family Medicine at [address] [address] Garrett Sanders MD Prior Auth (PA on Pantoprazole) 08/05/2024 Telephone [facility] Family Medicine at [address] [place] [address] Garrett Sanders MD Medical Question/Miscellaneous; PEER TO PEER CT HEAD WITHOUT CONTRAST 08/04/2024 Telephone [facility] Family Medicine at [address] [place] [phone] Garrett Sanders MD Prior Auth (PA on Linzess) 07/29/2024 Telephone [facility] Family Medicine at [address] [place] [phone] Garrett Sanders MD Prior Auth (PA on Pregabalin) 07/29/2024 Orders Only [facility] Family Medicine at [address] [address] Garrett Sanders MD 07/27/2024 Patient Message [facility] Family Medicine at [address] [address] Garrett Sanders MD Olanzapine treating my bipolar 07/25/2024 9:[address] [facility] Lab [address] [place] [address] Chronic pain of multiple joints 07/25/2024 Results Follow-Up [facility] Family Medicine at [address] [address] Garrett Sanders MD Vitamin D 25 hydroxy, Rheumatoid factor, Erythrocyte sedimentation rate, CRP (acute phase) 07/24/2024 3:30 PM CDT Office Visit [facility] Family Medicine at [address] [address] Garrett Sanders MD Benign essential HTN (Primary Dx); Chronic pain of right ankle; Memory loss; Class 3 severe obesity due to excess calories with serious comorbidity and body mass index (BMI) of 40.0 to 44.9 in adult; Chronic pain of multiple joints 07/22/2024 Telephone [facility] at [address] [phone] Garrett Sanders MD 07/20/2024 Results Follow-Up [facility] Medical [facility] Family Medicine at [address] [place] [phone] Garrett Sanders MD Celiac reflex panel, Tissue transglutaminase IgA (TGG-IgA Ab) 07/15/2024 9:[address] [facility] Lab [address] [place] [address] Dyspepsia 07/15/2024 Telephone [facility] Family Medicine at [address] [address] Garrett Sanders MD Test Results 07/10/2024 11:45 AM CDT Office Visit [facility] Family Medicine at [address] [address] Garrett Sanders MD Chronic constipation (Primary Dx); Post-surgical hypothyroidism; Colitis 07/09/2024 Telephone [facility] Family Medicine at [address] [place] [address] Garrett Sanders MD Appointment Request 07/08/2024 Telephone [facility] Family Medicine at [address] [address] Garrett Sanders MD 3rd no show letter sent 07/08/24 06/02/2024 Results Follow-Up [facility] Family Medicine at [address] [address] Garrett Sanders MD XR Knee Right 4 or More Views 05/28/2024 2:19 PM SNOW REMOVAL SUPERVISOR - 05/28/2024 11:59 PM SNOW REMOVAL SUPERVISOR Hospital Encounter [facility] [address] [place] [address] Chronic pain of right knee Discharge Disposition: Discharge to home or self care 05/28/2024 2:10 PM SNOW REMOVAL SUPERVISOR Lab [facility] Lab [address] [place] [address] Postoperative hypothyroidism 05/28/2024 Results Follow-Up [facility] Family Medicine at [address] [place] [address] Garrett Sanders MD Thyroid Function Macoupin, T4, free from Last 3 Months Immunizations [...] on file Legal Sex Female 5:33 AM SNOW REMOVAL SUPERVISOR Gender Identity Not on file Sexual [...] Read Routine (OP Routine) 05/28/2024 2:35 PM SNOW REMOVAL SUPERVISOR Chronic pain of right knee T4, FREE Routine 05/28/2024 2:15 PM SNOW REMOVAL SUPERVISOR Postoperative hypothyroidism THYROID FUNCTION CASCADE Routine 05/28/2024 2:15 PM SNOW REMOVAL SUPERVISOR Postoperative hypothyroidism N. GONORRHOEAE/C. TRACHOMATIS AMPLIFICATION STAT [...] t Performing Organization Address [facility] de Phone Number AYSE BLAKE [address] [place] [address] * T4, free (08/20/2024 3:38 PM CDT) Free T4 1.52 0.90 - 1.70 ng/dL Blood 08/20/2024 3:38 PM CDT 08/20/2024 9:18 PM CDT us Socrates Contreras MD LAB BLOOD ORDERABLES Final Resul t Performing Organization Address [facility] Phone Number AYSE BLAKE [address] [address] [place] [address] * XR Foot Left 3 or More [...] by Arik Camacho M.D. T: Report ID: [id number] Reading Location: [id number] Procedure Note Arik Camacho MD - 08/13/2024 [...] by Arik Camacho M.D. T: Report ID: [id number] Reading Location: [id number] us Garrett Sanders MD IMG XR PROCEDURES [...] by Arik Camacho M.D. T: Report ID: [id number] Reading Location: [id number] Procedure Note Arik Camacho MD - 08/13/2024 [...] by Arik Camacho M.D. T: Report ID: [id number] Reading Location: [place] [address] us Garrett Sanders MD IM XR PROCEDURES [...] by Ryan Colin M.D. T: Report ID: [id number] Reading Location: [id number] Procedure Note Ryan Colin MD - 08/19/2024 [...] by Ryan Colin M.D. T: Report ID: [id number] Reading Location: [place] [address] Garrett Sanders MD IMG XR PROCEDURES Final [...] revised on 2019. Testing performed by: [facility], [address] [facility], [place]., [address] Blood 07/25/2024 9:30 AM CDT 07/25/2024 11:08 AM CDT Garrett Sanders MD LAB BLOOD ORDERABLES Final Resul t [id number] [facility] Department [place] [address] * Vitamin D 25 hydroxy (07/25/2024 9:30 AM CDT) Vitamin D 25-OH 34.0 30.0 - 80.0 ng/mL Blood 07/25/2024 9:30 AM CDT 07/25/2024 9:46 AM CDT us Garrett Sanders MD LAB BLOOD ORDERABLES Final Resul t Performing Organization Address [facility] Co de Phone Number [address] [place] [address] * Erythrocyte sedimentation rate (07/25/2024 9:30 AM CDT) Erythrocyte sedimentation rate 14 1 - 20 mm/hr Blood 07/25/2024 9:30 AM CDT 07/25/2024 9:46 AM CDT us Garrett Sanders MD LAB BLOOD ORDERABLES Final Resul t Performing Organization Address [facility] de Phone Number [address] [address] * Rheumatoid factor (07/25/2024 9:30 AM CDT) Pathologist [facility] Rheumatoid factor, quant <10.0 <=15.0 IUnits/mL Blood 07/25/2024 9:30 AM CDT 07/25/2024 9:46 AM CDT us Garrett Sanders MD LAB BLOOD ORDERABLES Final Resul t Performing Organization Address [facility] de Phone Number [address] [place] [address] * CRP (acute phase) (07/25/2024 9:30 AM CDT) Pathologist [facility] CRP 3.4 <=10.0 mg/L Blood 07/25/2024 9:30 AM CDT 07/25/2024 9:46 AM CDT us Garrett Sanders MD LAB BLOOD ORDERABLES Final Resul t Performing Organization Address [facility] Co de Phone Number [address] [place] [address] * Celiac reflex panel (07/15/2024 8:58 AM CDT) IgA 201 61 - 356 mg/dL [place] [facility] Celiac disease interpretation See Footnote AYSE Comment: See Comment: Negative serology. Celiac disease unlikely. However, approximately 10% of patients with celiac disease are seronegative. Also, patients who are already adhering to a gluten-free diet may be seronegative. If celiac disease is highly clinically suspected, consider HLA-DQ typing. Test Performed by: [place] [address] Travel Accommodation Inspector: Horace León Ph.D.; CLIA# [id number] Blood 07/15/2024 8:58 AM CDT 07/15/2024 9:41 AM CDT Garrett Sanders MD LAB BLOOD ORDERABLES Final Resul t Performing Organization Address [facility] de Phone Number [address] [place] [employer] [place] [address] [place] [facility] * Tissue transglutaminase IgA (TGG-IgA Ab) (07/15/2024 8:58 AM CDT) TTG ab, IgA <1.2 <4.0 (Negative) units/mL Comment: Test Performed by: [place] [address] Travel Accommodation Inspector: Horace León Ph.D.; CLIA# [id number] Interpretive data Negative: <15 units/mL Positive: > or equal to 15 units/mL Current interpretive data was last revised on 2016. Testing performed by: [facility], [address] [facility], [place]., [address] Blood 07/15/2024 8:58 AM CDT 07/15/2024 9:41 AM CDT Garrett Sanders MD LAB BLOOD ORDERABLES Final Resul t Performing Organization Address [facility] Co de Phone Number [address] [place] [employer] [place] [address] * XR Knee Right 4 or More Views (05/28/2024 2:35 PM SNOW REMOVAL SUPERVISOR) Anatomical Region Laterality Modality Lower Extremities, Knee Right Computed Radiography 06/01/2024 7:27 AM SNOW REMOVAL SUPERVISOR Narrative 06/01/2024 7:28 AM SNOW REMOVAL SUPERVISOR EXAM DESCRIPTION: XR KNEE RIGHT 4 [...] by Arik Camacho M.D. T: Report ID: [id number] Reading Location: [id number] Procedure Note Arik Camacho MD - 06/01/2024 [...] by Arik Camacho M.D. T: Report ID: [id number] Reading Location: [id number] us Garrett Sanders MD IMG XR PROCEDURES Final Result * (ABNORMAL) Thyroid Function Macoupin (05/28/2024 2:15 PM SNOW REMOVAL SUPERVISOR) TSH 40.70(H) 0.30 - 4.20 mcIUnit/mL Blood 05/28/2024 2:15 PM SNOW REMOVAL SUPERVISOR 05/28/2024 2:30 PM SNOW REMOVAL SUPERVISOR Garrett Sanders MD LAB BLOOD ORDERABLES Final Resul t Performing Organization Address [facility] de Phone Number [facility] [address] [place] [address] * T4, free (05/28/2024 2:15 PM SNOW REMOVAL SUPERVISOR) Free T4 1.03 0.90 - 1.70 ng/dL Blood 05/28/2024 2:15 PM SNOW REMOVAL SUPERVISOR 05/28/2024 2:30 PM SNOW REMOVAL SUPERVISOR Narrative AYSE - 05/28/2024 4:15 PM SNOW REMOVAL SUPERVISOR This test was reflexed from a TSH result. Garrett Sanders MD LAB BLOOD ORDERABLES Final Resul t Performing Organization Address [facility] de Phone Number [facility] [address] [place] [address] * N. gonorrhoeae/C. trachomatis Amplification Urine (06/13/2022 3:09 PM CDT) Pathologist [facility] C. trachomatis Not Detected Not Detected AYSE CORDERO Comment:Testing performed by : [facility], [address] [place] [address]., [address] N. gonorrhoeae Not Detected Not Detected AYSE CORDERO Comment: Interpretive Data Testing performed by the [facility]. This assay detects Chlamydia trachomatis [...] last revised on 2019. Testing performed by: [facility], [address] [place] [address]., [address] Urine (None) 06/13/2022 3:09 PM CDT 06/13/2022 4:09 PM CDT Maria Teresa OLIVA LAB MICROBIOLOGY - GENERAL ORDER SADIA Final Result Performing Organization Address [facility] Co de Phone Number AYSE CORDERO [address] [facility] [place] [address] * Hepatitis panel, acute (02/01/2022 7:53 PM CDT) Hep A IgM Nonreactive Nonreactive [facility] Comment: Interpretive Data: If Hep A IgM Ab is reported as Equivocal, a new sample should be drawn in two weeks for testing. Current interpretive data was last revised on 19. Hep B core IgM Nonreactive Nonreactive [facility] Comment: Interpretive Data If HepB Core IgM Ab is reported as Equivocal, a new sample should be drawn in two weeks for testing. Current interpretive data was last revised on 19. Hep C Ab Nonreactive Nonreactive [facility] Comment: Interpretive Data Nonreactive: Antibodies to [...] last revised on 2019. HepBsAg Nonreactive Nonreactive [facility] Blood 02/01/2022 7:53 PM CDT 02/01/2022 11:28 PM CDT Liz Tucker DO LAB MICROBIOLOGY - GENERAL ORDE RABLES Final Result Performing Organization Address City/[facility]/ZIP Co de Phone Number AYSE [address] [facility] [place] [address] from Last 3 Months or Most Recently Relevant to Health Maintenance Insurance [facility] Care Teams Waistline Joiner Overlock Relationship Specialty Start Date End Date Garrett Sanders MD [address] [facility] [place] [address] PCP - General Family Medicine 04/09/23
--- OUTSIDE RECORDS SUMMARY | 2024-08-23 03:37 | XMS_ITS | Encounter Summary ---
Author Organization [facility] Healthcare Address [address] [place] [address] Care Team Providers Care Cushion Former Name Role Phone Garrett Sanders MD Primary Care Provider [phone] Encounter Details Date Type Department Care Team (Latest Contact Info) Description 07/20/2024 Results Follow-Up [facility] Family Medicine at [address] [place] [address] Garrett Sanders MD [address] [place] [address] [address] [place] [address] Celiac reflex panel, Tissue transglutaminase [...] on file Legal Sex Female 5:33 AM MYCOLOGIST Gender Identity Not on file Sexual Orientation Not on file documented as of this encounter Miscellaneous Notes * Telephone Encounter - Karol Russ - 07/23/2024 4:07 PM CDT Appt RS documented in this encounter Plan of Treatment Not on file documented as of this encounter Visit Diagnoses Not on filedocumented in this encounter Care Teams Cushion Former Relationship Specialty Start Date End Date Garrett Sanders MD [address] [facility] [address] [place] [address] PCP - General Family Medicine 04/09/23 documented as of this encounter
--- OUTSIDE RECORDS SUMMARY | 2024-08-23 03:37 | XMS_ITS | Referral Summary ---
Author Organization [facility] Address [address] [place] [address] Care Team Providers Care Saw Runner Name Role Phone Garrett Sanders MD Primary Care Provider [phone] Encounters Date Type Department Care Team Description 08/22/2024 Orders Only [facility] Family Medicine at [address] [place] [address] Garrett Sanders MD 08/20/2024 3:38 PM CDT - 08/20/2024 11:59 PM CDT Hospital Encounter [address] [address] Post-surgical hypothyroidism Discharge Disposition: Discharge to home or self care 08/20/2024 3:45 PM CDT Lab [facility] Outpatient Lab at [address] [phone] 08/20/2024 1:30 PM CDT Office Visit [facility] Specialists of [address] [address] Socrates Contreras MD Post-surgical hypothyroidism 08/14/2024 Results Follow-Up [facility] Family Medicine at [address] [place] [phone] Garrett Sanders MD XR Foot Left 3 or More Views 08/12/2024 4:45 PM CDT - 08/12/2024 11:59 PM CDT Hospital Encounter [facility] [address] [place] [address] Acute right ankle pain; Left foot pain; Shortness of breath Discharge Disposition: Discharge to home or self care 08/07/2024 Telephone [facility] Medicine at [address] [place] [address] Garrett Sanders MD PA for pregabalin 50 mg 08/05/2024 Telephone [facility] Medicine at [address] [place] [address] Garrett Sanders MD Prior Auth (PA on Pantoprazole) 08/05/2024 Telephone [facility] at [address] [place] [phone] Garrett Sanders MD Medical Question/Miscellaneous; PEER TO PEER CT HEAD WITHOUT CONTRAST 08/04/2024 Telephone [facility] Medicine at [address] [place] [address] Garrett Sanders MD Prior Auth (PA on Linzess) 07/29/2024 Telephone [facility] at [address] [place] [phone] Garrett Sanders MD Prior Auth (PA on Pregabalin) 07/29/2024 Orders Only [facility] at [address] [place] [phone] Garrett Sanders MD 07/27/2024 Patient Message [facility] at [address] [place] [phone] Garrett Sanders MD Olanzapine treating my bipolar 07/25/2024 Results Follow-Up [facility] at [address] [place] [phone] Garrett Sanders MD Vitamin D 25 hydroxy, Rheumatoid factor, Erythrocyte sedimentation rate, CRP (acute phase) 07/25/2024 9:15 AM CDT Lab [address] [address] Chronic pain of multiple joints 07/24/2024 3:30 PM CDT Office Visit [facility] at [address] [address] Garrett Sanders MD Benign essential HTN (Primary Dx); Chronic pain of right ankle; Memory loss; Class 3 severe obesity due to excess calories with serious comorbidity and body mass index (BMI) of 40.0 to 44.9 in adult; Chronic pain of multiple joints 07/22/2024 Telephone [facility] at [address] [phone] Garrett Sanders MD 07/20/2024 Results Follow-Up [facility] at [address] [address] Garrett Sanders MD Celiac reflex panel, Tissue transglutaminase IgA (TGG-IgA Ab) 07/15/2024 Telephone [facility] at [address] [address] Garrett Sanders MD Test Results 07/15/2024 9:00 AM CDT Lab [address] [address] Dyspepsia 07/10/2024 11:45 AM CDT Office Visit [facility] at [address] [address] Garrett Sanders MD Chronic constipation (Primary Dx); Post-surgical hypothyroidism; Colitis 07/09/2024 Telephone [facility] at [address] [address] Garrett Sanders MD Appointment Request 07/08/2024 Telephone [facility] Medicine at [address] [address] Garrett Sanders MD 3rd no show letter sent 07/08/24 06/02/2024 Results Follow-Up [facility] at [address] [place] [phone] Garrett Sanders MD XR Knee Right 4 or More Views 05/28/2024 Results Follow-Up [facility] at [address] [address] Garrett Sanders MD Thyroid Function [place], T4, free 05/28/2024 2:19 PM MAKING LINE WORKER - 05/28/2024 11:59 PM MAKING LINE WORKER Hospital Encounter [facility] [address] [place] [address] Chronic pain of right knee Discharge Disposition: Discharge to home or self care 05/28/2024 2:10 PM MAKING LINE WORKER Lab [facility] Lab [address] [place] [address] Postoperative hypothyroidism from Last 3 Months Allergies [...] 1 tablet (100 mg total) by mouth clerical clerk before breakfast 90 tablet 3 025 2025 [...] 1 capsule (290 mcg total) by mouth clerical clerk before breakfast 90 capsule 3 025 2025 [...] obesity 07/24/2024 Body mass index 40.0-44.9, adult ([facility]) 07/24 Memory loss 07/24/2024 Chronic constipation 07/10/2024 Overview (07/10/2024): Chronci. Uncontrolled with intermittent Rectal Bleeding. Already on lInzess and fiber supplements. Trial cipro/flagyl Acute pain of right knee 12/13/2023 Blepharitis of right upper eyelid 02/14/2023 Assessment & Plan (02/14/2023 2:58 PM MAKING LINE WORKER): Warm compresses every 4-6 hours for 5-10 minutes Frequent handwashing, lid massage Doxycycline po 100 mg BID x 7 days. Sunscreen use advised. Topical erythromycin ER for worsening, pain, streaking redness, worsening swelling, vision impairment Upper respiratory tract infection 02/14/2023 Assessment & Plan (02/14/2023 2:59 PM MAKING LINE WORKER): Rapid strep negative Rapid covid, flu negative [...] 5pm. Assessment & Plan (04/19/2023 12:26 PM MAKING LINE WORKER): Recommended aggressive Lifestyle modification and weight loss [...] 08/30/2021 Assessment & Plan (03/12/2023 3:27 PM MAKING LINE WORKER): Continue current levothyroxine dose. Will check thyroid function test and adjust levothyroxine dose accordingly. TSH goal lower normal Assessment & Plan (02/13/2022 2:37 PM MAKING LINE WORKER): Continue current levothyroxine dose. Will check thyroid function test and adjust levothyroxine dose accordingly. 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 Biochemical evaluation with thyroid tumor markers. We will also obtain neck ultrasound for evaluation of the neck. If above are in acceptable range, will plan follow-up on yearly basis Assessment & Plan (02/13/2022 2:38 PM MAKING LINE WORKER): No evidence of tumor recurrence on biochemical [...] Encounter for STD screening;Recorded Elsewhere: No Location: [facility] Source: EHR Chronic: N Practice ID: [id number] Billable Time: 01:15:00 PM Contraceptive management 04/23/2018 Overview (04/19/2023): Encounter for routine checking of intrauterine contraceptive device;Recorded Elsewhere: No Location: [facility] Source: EHR Chronic: N Practice ID: [id number] Billable Time: 09:45:00 AM Pelvic and perineal pain 02/27/2018 Overview (04/19/2023): Pelvic and perineal pain;Recorded Elsewhere: No Location: [facility] Source: EHR Chronic: N Practice ID: [id number] Billable Time: 11:00:00 AM Menstrual cycle disorder 05/19/2015 Overview (04/19/2023): Menometrorrhagia;Recorded Elsewhere: No Location: [facility] Source: EHR Chronic: N Practice ID: [id number] Billable Time: 10:30:00 AM Irregular menses 01/09/2015 Resolved Problems Problem Noted Date Diagnosed Date Resolved Date Abscess of left thigh 06/14/20222022 Hypoglycemia 02/13/2022 01/29/2023 Assessment & Plan (02/13/2022 2:39 PM MAKING LINE WORKER): No documented low blood sugar Advised BG [...] on file Legal Sex Female 5:33 AM MAKING LINE WORKER Gender Identity Not on file Sexual [...] Read Routine (OP Routine) 05/28/2024 2:35 PM MAKING LINE WORKER Chronic pain of right knee T4, FREE Routine 05/28/2024 2:15 PM MAKING LINE WORKER Postoperative hypothyroidism THYROID FUNCTION CASCADE Routine 05/28/2024 2:15 PM MAKING LINE WORKER Postoperative hypothyroidism N. GONORRHOEAE/C. TRACHOMATIS AMPLIFICATION STAT [...] ORDERABLES Final Resul t Performing Organization Address [facility] Co de Phone Number AYSE BLAKE [address] [place] [place] [address] * T4, free (08/20/2024 3:38 PM CDT) Free T4 1.52 0.90 - 1.70 ng/dL Blood 08/20/2024 3:38 PM CDT 08/20/2024 9:18 PM CDT us Socrates Contreras MD LAB BLOOD ORDERABLES Final Resul t Performing Organization Address [facility] de Phone Number AYSE BLAKE [address] [place] [address] * XR Foot Left 3 or More [...] by Arik Camacho M.D. T: Report ID: [id number] Reading Location: [id number] Procedure Note Arik Camacho MD - 08/13/2024 [...] by Arik Camacho M.D. T: Report ID: [id number] Reading Location: [id number] Garrett Sanders MD IM XR PROCEDURES Final [...] by Arik Camacho M.D. T: Report ID: [id number] Reading Location: [place] [address] Procedure Note Arik Camacho MD - 08/13/2024 [...] by Arik Camacho M.D. T: Report ID: [id number] Reading Location: [id number] us Garrett Sanders MD IM XR PROCEDURES [...] by Ryan Colin M.D. T: Report ID: [id number] Reading Location: [id number] Procedure Note Ryan Colin MD - 08/19/2024 [...] Ryan Colin M.D. KH T: Report ID: [id number] Reading Location: [place] [address] Garrett Sanders MD IMG XR PROCEDURES Final [...] last revised on 2019. Testing performed by: [facility], [address] [facility], [place]., [address] Blood 07/25/2024 9:30 AM CDT 07/25/2024 11:08 AM CDT us Garrett Sanders MD LAB BLOOD ORDERABLES Final Resul t [facility] [address] [facility] Department [place] [address] * Vitamin D 25 hydroxy (07/25/2024 9:30 AM CDT) Vitamin D 25-OH 34.0 30.0 - 80.0 ng/mL Blood 07/25/2024 9:30 AM CDT 07/25/2024 9:46 AM CDT us Garrett Sanders MD LAB BLOOD ORDERABLES Final Resul t Performing Organization Address [facility] Co de Phone Number [address] [place] [address] * Erythrocyte sedimentation rate (07/25/2024 9:30 AM CDT) [facility] Erythrocyte sedimentation rate 14 1 - 20 mm/hr Blood 07/25/2024 9:30 AM CDT 07/25/2024 9:46 AM CDT us Garrett Sanders MD LAB BLOOD ORDERABLES Final Resul t Performing Organization Address [facility] Co de Phone Number [address] [place] [address] * Rheumatoid factor (07/25/2024 9:30 AM CDT) [facility] Rheumatoid factor, quant <10.0 <=15.0 IUnits/mL Blood 07/25/2024 9:30 AM CDT 07/25/2024 9:46 AM CDT us Garrett Sanders MD LAB BLOOD ORDERABLES Final Resul t Performing Organization Address [facility] Co de Phone Number [address] [place] [address] * CRP (acute phase) (07/25/2024 9:30 AM CDT) [facility] CRP 3.4 <=10.0 mg/L Blood 07/25/2024 9:30 AM CDT 07/25/2024 9:46 AM CDT Garrett Sanders MD LAB BLOOD ORDERABLES Final Resul t Performing Organization Address [facility] Co de Phone Number [address] [place] [address] * Celiac reflex panel (07/15/2024 8:58 AM CDT) [facility] IgA 201 61 - 356 mg/dL [place] ref Lab Celiac disease interpretation See Footnote AYSE Comment: See Comment: Negative serology. Celiac disease unlikely. However, approximately 10% of patients with celiac disease are seronegative. Also, patients who are already adhering to a gluten-free diet may be seronegative. If celiac disease is highly clinically suspected, consider HLA-DQ typing. Test Performed by: [place] [address] Branch Or Department Chief Librarian: Horace León Ph.D.; CLIA# [id number] Blood 07/15/2024 8:58 AM CDT 07/15/2024 9:41 AM CDT Garrett Sanders MD LAB BLOOD ORDERABLES Final Resul t Performing Organization Address [facility] de Phone Number [address] [place] [address] [facility] ref Lab * Tissue transglutaminase IgA (TGG-IgA Ab) (07/15/2024 8:58 AM CDT) TTG ab, IgA <1.2 <4.0 (Negative) units/mL Comment: Test Performed by: [place] [address] Branch Or Department Chief Librarian: Horace León Ph.D.; CLIA# [id number] Interpretive data Negative: <15 units/mL Positive: > or equal to 15 units/mL Current interpretive data was last revised on 2016. Testing performed by: [facility], [address] [facility] [place]., [address] Blood 07/15/2024 8:58 AM CDT 07/15/2024 9:41 AM CDT Garrett Sanders MD LAB BLOOD ORDERABLES Final Resul t Performing Organization Address [facility] Co de Phone Number [address] [place] [address] * XR Knee Right 4 or More Views (05/28/2024 2:35 PM MAKING LINE WORKER) Anatomical Region Laterality Modality Lower Extremities, Knee Right Computed Radiography 06/01/2024 7:27 AM MAKING LINE WORKER Narrative 06/01/2024 7:28 AM MAKING LINE WORKER EXAM DESCRIPTION: XR KNEE RIGHT 4 OR [...] by Arik Camacho M.D. T: Report ID: [id number] Reading Location: [id number] Procedure Note Arik Camacho MD - 06/01/2024 [...] by Arik Camacho M.D. T: Report ID: [id number] Reading Location: [id number] Garrett Sanders MD IMG XR PROCEDURES Final Result * (ABNORMAL) Thyroid Function [place] (05/28/2024 2:15 PM MAKING LINE WORKER) TSH 40.70(H) 0.30 - 4.20 mcIUnit/mL Blood 05/28/2024 2:15 PM MAKING LINE WORKER 05/28/2024 2:30 PM MAKING LINE WORKER Garrett Sanders MD LAB BLOOD ORDERABLES Final Resul t Performing Organization Address City/[facility] Co de Phone Number AYSE [address] [place] [address] * T4, free (05/28/2024 2:15 PM MAKING LINE WORKER) Free T4 1.03 0.90 - 1.70 ng/dL Blood 05/28/2024 2:15 PM MAKING LINE WORKER 05/28/2024 2:30 PM MAKING LINE WORKER Narrative [facility] - 05/28/2024 4:15 PM MAKING LINE WORKER This test was reflexed from a TSH result. Garrett Sanders MD LAB BLOOD ORDERABLES Final Resul t Performing Organization Address [facility] de Phone Number [place] [address] [place] [address] * N. gonorrhoeae/C. trachomatis Amplification Urine (06/13/2022 3:09 PM CDT) Pathologist [facility] C. trachomatis Not Detected Not Detected AYSE Comment:Testing performed by : [facility], [address] [place] [address]., [address] N. gonorrhoeae Not Detected Not Detected AYSE Comment: Interpretive Data Testing performed by the [facility]. This assay detects Chlamydia [...] on 2019. Testing performed by: [facility], [address] [place] [address]., [address] Urine (None) 06/13/2022 3:09 PM CDT 06/13/2022 4:09 PM CDT Maria Teresa OLIVA LAB MICROBIOLOGY - GENERAL ORDER SADIA Final Result Performing Organization Address [facility] Co de Phone Number AYSE CORDERO [address] [facility] [place] [address] * Hepatitis panel, acute (02/01/2022 7:53 PM CDT) Hep A IgM Nonreactive Nonreactive [facility] Comment: Interpretive Data: If Hep A IgM Ab is reported as Equivocal, a new sample should be drawn in two weeks for testing. Current interpretive data was last revised on 19. Hep B core IgM Nonreactive Nonreactive [facility] Comment: Interpretive Data If HepB Core IgM Ab is reported as Equivocal, a new sample should be drawn in two weeks for testing. Current interpretive data was last revised on 19. Hep C Ab Nonreactive Nonreactive [facility] Comment: Interpretive Data Nonreactive: Antibodies [...] last revised on 2019. HepBsAg Nonreactive Nonreactive [facility] Blood 02/01/2022 7:53 PM CDT 02/01/2022 11:28 PM CDT Liz Tucker DO LAB MICROBIOLOGY - GENERAL ORDE RABLES Final Result Performing Organization Address City/[facility]/ZIP Co de Phone Number AYSE [address] [facility] [place] [address] from Last 3 Months or Most Recently Relevant to Health Maintenance Insurance [facility] Care Teams Saw Runner Relationship Specialty Start Date End Date Garrett Sanders MD [address] [facility] [place] [address] PCP - General Family Medicine 04/09/23
--- OUTSIDE RECORDS SUMMARY | 2024-08-23 03:37 | XMS_ITS | Encounter Summary ---
Author Organization [facility] Healthcare Address [address] [place] [address] Care Team Providers Care Digester Hand Name Role Phone Garrett Sanders MD Primary Care Provider [phone] Reason for Visit * Reason Onset Date Comments Medical Question/Miscellaneous 08/05/[address] HEAD WITHOUT CONTRAST 08/05/2024 Encounter Details Date Type Department Care Team (Late st Contact Info) Description 08/05/2024 Telephone [facility] Family Medicine at [address] [place] [address] Garrett Sanders MD [address] [place] [address] Medical Question/Miscellaneous ; PEER TO PEER [...] on file Legal Sex Female 5:33 AM LAUNDRY TECHNICIAN Gender Identity Not on file Sexual [...] to peer can be done by calling [facility] at - does not have to be scheduled. Tracking# [id number] Denial is in Epic- they needed notes from provider that showed patient had memory tests (low score on cognitive testing) that showed memory problems. They also needed recent blood test results. Cbc, Electrolytes, liver function, vitamin B12 and thyroid function test that do not explain your memory problems. Why patient couldn't have an Mri Brain. [facility] * Telephone Encounter - Verona Mclean - 08/05/2024 9:27 AM CDT Medical Question/Miscellaneous Caller???s Concern: [facility] pre arrival calling to notify pcp office that the authorization for the CT neuro wo contrast scheduled for tomorrow has been denied. Does message need to be routed? Yes-Action Needed documented in this encounter Plan of Treatment Not on file documented as of this encounter Visit Diagnoses Not on filedocumented in this encounter Care Teams Digester Hand Relationship Specialty Start Date End Date Garrett Sanders MD [address] [facility] [address] [address] PCP - General Family Medicine 04/09/23 documented as of this encounter
--- OUTSIDE RECORDS SUMMARY | 2024-08-23 03:37 | XMS_ITS | Encounter Summary ---
Author Organization [facility] Healthcare Address [address] [place] [address] Care Team Providers Care Motor Vehicle License Clerk Name Role Phone Samantha Olsen Primary Care Provider Fatuma Theodore NP Primary Care Provider [phone] Garrett Sanders MD Primary Care Provider [phone] Encounter Details Date Type Department Care Team (Late st Contact Info) Description 01/10/2022 Telephone [facility] Physical Therapy [address] [place] [address] Rosalva Hurley, PT Social History Tobacco [...] on file Legal Sex Female 5:33 AM WEB MOBILE DESIGNER Gender Identity Not on file Sexual Orientation Not on file documented as of this encounter Plan of Treatment Not on file documented as of this encounter Visit Diagnoses Not on filedocumented in this encounter Additional Health Concerns Infection Onset Date Last Indicated Resolved Time COVID: Suspected 02/14/2023 02/14/2023 02/14/2023 2:34 PM WEB MOBILE DESIGNER COVID: Suspected 04/09/2023 04/09/2023 04/09/2023 11:05 PM WEB MOBILE DESIGNER documented as of this encounter Care Teams Motor Vehicle License Clerk Relationship Specialty Start Date End Date Samantha Olsen PA PCP - General Family Medicine 12/13/21 01/28/23 Fatuma Theodore NP [address] [facility] [address] [place] [address] [place] [address] PCP - General Family Medicine 01/29/23 04/08/23 Garrett Sanders MD [address] [facility] [address] [place] [address] [place] [address] PCP - General Family Medicine 04/09/23 documented as of this encounter
--- OUTSIDE RECORDS SUMMARY | 2024-08-23 03:37 | XMS_ITS | Encounter Summary ---
Author Organization [facility] Healthcare Address [address] [place] [address] Care Team Providers Care Machinist Supervisor Outside Name Role Phone Garrett Sanders MD Primary Care Provider [phone] Encounter Details Date Type Department Care Team (Late st Contact Info) Description 08/14/2024 Results Follow-Up [facility] Family Medicine at [address] [place] [address] Garrett Sanders MD [address] [place] [address] [address] [place] [address] XR Foot Left 3 or [...] on file Legal Sex Female 5:33 AM BREWING TECHNICIAN Gender Identity Not on file Sexual Orientation Not on file documented as of this encounter Miscellaneous Notes * Telephone Encounter - Garrett Sanders MD - 08/22/2024 1:27 PM CDT Olanzapine can be increased to 10mg, if patient is ok with that. * Telephone Encounter - Garrett Sanders MD - 08/22/2024 1:25 PM CDT Journavx is pain medication, likely safer than opioid. Likely Body And Fender Worker may have prescribed. Ok to discontinue abilify. [...] documented as of this encounter Care Teams Machinist Supervisor Outside Relationship Specialty Start Date End Date Garrett Sanders MD [address] [facility] [place] [address] PCP - General Family Medicine 04/09/23 documented as of this encounter
--- OUTSIDE RECORDS SUMMARY | 2024-08-23 03:37 | XMS_ITS | Clinical Summary ---
Author Organization [facility] Address [address] [place] [address] Phone Care Team Providers Care Head Tennis Professional Name Role Phone Giancarlo Yeh MD Primary Care Provider [phone] Allergies Active Allergy Reactions Criticality Noted Date [...] on file Legal Sex Female 3:42 PM REGISTERED OCCUPATIONAL THERAPIST Gender Identity Not on file Sexual Orientation [...] 12/30/2002, 05/08/2001, 03/12/2001, Additional history exists Insurance [facility] MEDICAID [facility] MEDICAID Advance Directives For more information, please contact: [phone] * Default Full Code - Needs Discussion (Latest Code Status on File) Date Activated Date Inactivated Comments 09/04/2021 8:56 AM 09/04/2021 2:27 PM * Full Code Date Activated Date Inactivated Comments 05/13/2018 1:26 PM 05/14/2018 11:46 AM Care Teams Head Tennis Professional Relationship Specialty Start Date End Date Giancarlo Yeh MD PCP - General Family Practice 09/03/21
[2024-08-23 04:08] LABS: Anion Gap 9 mmol/L (4-12); Blood Urea Nitrogen 14 mg/dL (7-17); Calcium 7.9 mg/dL (8.4-10.2); Carbon Dioxide 27 mmol/L (22-30); Chloride 103 mmol/L (98-107); Creatine Kinase 76 U/L (30-135); Estimated CRCL calculation 137 ml/min; Estimated Glomerular Filt Rate > 60; Glucose 119 mg/dL (65-110); Magnesium 1.9 mg/dL (1.6-2.3); Potassium 3.8 mmol/L (3.4-5.0); Sodium 139 mmol/L (137-145)
[2024-08-23 04:25] LABS: Albumin Level 4.1 g/dL (3.5-5.1)
--- NOTE | 2024-08-23 04:39 | ECG_ITS ---
Test Date: 2024-08-23 05:08:53 Measurements Intervals [place] Rate: 81 P: 50 MI: 171 QRS: 20 QRSD: 93 T: -13 QT: 383 QTc: 446 Interpretive Statements SINUS RHYTHM POSSIBLE LEFT ATRIAL ENLARGEMENT [-0.1mV P-WAVE IN V1/V2] Compared to ECG 07/11/2024 20:39:02 Sinus bradycardia no longer present Electronically Signed On 08-23-2024 17:12:57 CDT by Torsten Schumacher M.D.
[2024-08-23] MEDS: CALCIUM CARBONATE (TUMS) 500 MG (200 MG ELEMENTAL) PO (05:02)
[2024-08-23] MEDS: calcitrioL 0.25 MCG CAPSULE PO (05:03)
[2024-08-23 05:31] VITALS: BP 127/76; PULSE 68; RESP 18; TEMP 37.1; O2SAT 98
== END 2024-08-23 05:33 | disposition home or self-care (01) ==
PROVIDERS: Emergency Provider Student in an Organized Health Care Education/Training Program; PCP Family Medicine
DX: D75.839 Thrombocytosis, unspecified (principal); E83.51 Hypocalcemia; M79.651 Pain in right thigh; I10 Essential (primary) hypertension; E03.9 Hypothyroidism, unspecified; Z85.850 Personal history of malignant neoplasm of thyroid; F41.8 Other specified anxiety disorders; Z87.891 Personal history of nicotine dependence
CPT/HCPCS: 36415; 73552; 80048; 82040; 82550; 83735; 85025; 85380; 85610; 85730; 93005; 99283; A9270

== ENCOUNTER 2024-09-07 15:27 | Emergency (ER) | payer BC, SELFPAY ==
--- NOTE | ~2024-09-07 | XR_ITS ---
EXAMINATION: XR chest 2V Exam Date/Time: 09/07/2024 16:29 CDT HISTORY: soa, chest tightness, leg swelling, x 1 wk Comparison: 07/08/2024. RESULT: Lines, tubes, and devices: None. Lungs and pleura: Clear. Cardiomediastinal silhouette: Stable. Other: No acute osseous or upper abdominal finding. IMPRESSION: No acute cardiopulmonary process. Reviewed, dictated and finalized at location K.
--- NOTE | ~2024-09-07 | US_ITS ---
EXAMINATION: US venous doppler [facility] DATE: 09/07/2024 17:00 INDICATION: swelling . TECHNIQUE: Grayscale images without and with compression and Doppler images of the bilateral lower ex tremity veins were obtained. COMPARISON: None FINDINGS: The right common femoral vein, profunda (deep) femoral vein, femoral vein, popliteal vein, peroneal v ein, posterior tibial veins, gastrocnemius vein, and greater saphenous vein are patent. The left common femoral vein, profunda (deep) femoral vein, femoral vein, popliteal vein, peroneal v ein, posterior tibial veins, gastrocnemius vein, and greater saphenous vein are patent. IMPRESSION: Patent bilateral lower extremity veins. No evidence of deep venous thrombosis. Reviewed, dictated and finalized at location K.
[2024-09-07 15:30] VITALS: BP 140/91; PULSE 104; RESP 22; TEMP 36.8; O2SAT 100
--- OUTSIDE RECORDS SUMMARY | 2024-09-07 15:31 | XMS_ITS | Encounter Summary ---
Author Organization [facility] Healthcare Address [address] [place] [address] Care Team Providers Care Banking Assistant Name Role Phone Samantha Olsen Primary Care Provider Fatuma Theodore NP Primary Care Provider [phone] Garrett Sanders MD Primary Care Provider [phone] Encounter Details Date Type Department Care Team (Late st Contact Info) Description 01/10/2022 Telephone [facility] OP Physical Therapy [address] [place] [id number] Rosalva Hurley, PT Social History Tobacco [...] on file Legal Sex Female 5:33 AM CIGAR HEAD PEGGER Gender Identity Not on file Sexual Orientation Not on file documented as of this encounter Plan of Treatment Not on file documented as of this encounter Visit Diagnoses Not on filedocumented in this encounter Additional Health Concerns Infection Onset Date Last Indicated Resolved Time COVID: Suspected 02/14/2023 02/14/2023 02/14/2023 2:34 PM CIGAR HEAD PEGGER COVID: Suspected 04/09/2023 04/09/2023 04/09/2023 11:05 PM CIGAR HEAD PEGGER documented as of this encounter Care Teams Banking Assistant Relationship Specialty Start Date End Date Samantha Olsen PA PCP - General Family Medicine 12/13/21 01/28/23 Fatuma Theodore NP [address] [place] [address] [place] [id number] PCP - General Family Medicine 01/29/23 04/08/23 Garrett Sanders MD [address] [place] [address] [place] [phone] PCP - General Family Medicine 04/09/23 documented as of this encounter
--- OUTSIDE RECORDS SUMMARY | 2024-09-07 15:31 | XMS_ITS | Clinical Summary ---
Author Organization [facility] Address [address] [place] [address] Phone Care Team Providers Care Lead Caster Name Role Phone Giancarlo Yeh MD Primary Care Provider [phone] Allergies Active Allergy Reactions Criticality Noted Date [...] on file Legal Sex Female 3:42 PM RN DIABETES Gender Identity Not on file Sexual Orientation [...] 8:13 PM CDT Height 175.3 cm (5' 9) 09/03/2021 8:13 PM CDT Body Mass Index [...] 12/30/2002, 05/08/2001, 03/12/2001, Additional history exists Insurance [facility] MEDICAID [facility] MEDICAID Advance Directives For more information, please contact: [phone] * Default Full Code - Needs Discussion (Latest Code Status on File) Date Activated Date Inactivated Comments 09/04/2021 8:56 AM 09/04/2021 2:27 PM * Full Code Date Activated Date Inactivated Comments 05/13/2018 1:26 PM 05/14/2018 11:46 AM Care Teams Lead Caster Relationship Specialty Start Date End Date Giancarlo Yeh MD PCP - General Family Practice 09/03/21
--- OUTSIDE RECORDS SUMMARY | 2024-09-07 15:31 | XMS_ITS | Encounter Summary ---
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 Gender Identity Not on file Sexual Orientation Not on file documented as of this encounter Plan of Treatment Not on file documented as of this encounter Visit Diagnoses Not on filedocumented in this encounter Additional Health Concerns Infection Onset Date Last Indicated Resolved Time COVID: Suspected 02/14/2023 02/14/2023 02/14/2023 2:34 PM HATCHERY MAN COVID: Suspected 04/09/2023 04/09/2023 04/09/2023 11:05 PM HATCHERY MAN documented as of this encounter Care Teams Director Hair Relationship Specialty Start Date End Date Samantha Olsen PA PCP - General Family Medicine 12/13/21 01/28/23 Fatuma Theodore NP [address] [facility] [place] [address] [place] [id number] PCP - General Family Medicine 01/29/23 04/08/23 Garrett Sanders MD [address] [facility] [place] [address] [place] [phone] PCP - General Family Medicine 04/09/23 documented as of this encounter
--- OUTSIDE RECORDS SUMMARY | 2024-09-07 15:31 | XMS_ITS | Encounter Summary ---
Author Organization [facility] Healthcare Address [address] [place] [address] Care Team Providers Care Typing Office Worker Name Role Phone Garrett Sanders MD Primary Care Provider Encounter Details Date Type Department Care Team (Late st Contact Info) Description 09/01/2024 Results Follow-Up [facility] Family Medicine at [address] [phone] Garrett Sanders MD [address] [place] [phone] Comprehensive metabolic panel, PTH, Calcium, ionized, Additional followed-up results: 2 Social History Tobacco Use Types Packs/Day Years [...] on file 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
--- OUTSIDE RECORDS SUMMARY | 2024-09-07 15:31 | XMS_ITS | Clinical Summary ---
Author Organization [facility] Address [address] [place] [address] Care Team Providers Care Manual Plate Filler Name Role Phone Garrett Sanders MD Primary Care Provider [phone] Allergies Active Allergy Reactions Criticality Noted Date [...] as needed for pain 30 tablet Active cyanocobalamin (vitamin B-12) 500 mcg tabletIndications :Prevention of Vitamin B12 Deficiency Take 1 tablet (500 mcg total) by mouth daily 90 tablet 3 025 2025 Active riboflavin (Vitamin B-2) 100 mg tabletIndications :Riboflavin Deficiency Take 1 tablet (100 mg total) by mouth contract 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 breakfast 90 tablet 3 025 2025 [...] daily 90 tablet 3 025 2025 Active linaCLOtide (Linzess) 290 mcg capsule Take 1 capsule (290 mcg total) by mouth contract 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 breakfast 90 capsule 3 025 2025 [...] MOUTH EVERY 6 TO 8 HOURS NEEDED Active furosemide (LASIX) 20 mg tablet TAKE 1 TABLET(20 MG) BY MOUTH DAILY 30 tablet Active levothyroxine (SYNTHROID) 200 mcg tabletIndications :Postoperative hypothyroidism Take 8 tabs all together , once a week, same day of the week 100 tablet 2 Active OLANZapine (ZyPREXA) 10 mg tabletIndications :Anxiety,Moderate episode of recurrent major depressive disorder (HCC) Take 1 tablet (10 mg total) by mouth nightly 30 tablet 025 2024 Active sertraline (ZOLOFT) 100 mg tabletIndications :Moderate episode of recurrent major depressive disorder (HCC),Anxiety Take 1 tablet (100 mg total) by mouth daily 100 tablet 025 2024 Discontinued hydrocortisone 2.5 % cream APPLY TOPICALLY TO THE AFFECTED AREA TWICE DAILY 30 g 025 2024 Discontinued levothyroxine (SYNTHROID) 25 mcg tabletIndications :Post-surgical hypothyroidism Take 1 tablet (25 mcg total) by mouth daily 90 tablet 025 2024 Discontinued levothyroxine (SYNTHROID) 200 mcg tabletIndications :Postoperative hypothyroidism Take 1 tablet (200 mcg total) by mouth daily 90 tablet 025 2024 Discontinued(R eorder) furosemide (LASIX) 20 mg tablet Take 1 tablet (20 mg total) by mouth daily 30 tablet 025 2024 Discontinued OLANZapine (ZyPREXA) 5 mg tabletIndications :Anxiety,Moderate episode of recurrent major depressive disorder (HCC) Take 1 tablet (5 mg total) by mouth nightly 30 tablet 025 2024 Discontinued(R eorder) ARIPiprazole (ABILIFY) 5 mg tablet Take 1 tablet (5 mg total) by mouth daily 30 tablet 2 025 2024 Discontinued Active Problems Problem Noted Date Diagnosed Date Severe obesity 07/24/2024 Body mass index 40.0-44.9, adult (CMS/HCC) 07/24 Memory loss 07/24/2024 Chronic constipation 07/10/2024 Overview (07/10/2024): Chronci. Uncontrolled with intermittent Rectal Bleeding. Already on lInzess and fiber supplements. Trial cipro/flagyl Acute pain of right knee 12/13/2023 Blepharitis of right upper eyelid 02/14/2023 Assessment & Plan (02/14/2023 2:58 PM 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): Warm compresses every 4-6 hours for 5-10 minutes Frequent handwashing, lid massage Doxycycline po 100 mg BID x 7 days. Sunscreen use advised. Topical erythromycin ER for worsening, pain, streaking redness, worsening swelling, vision impairment Upper respiratory tract infection 02/14/2023 Assessment & Plan (02/14/2023 2:59 PM 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): Rapid strep negative Rapid covid, flu [...] 5pm. Assessment & Plan (04/19/2023 12:26 PM 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): Recommended aggressive Lifestyle modification and weight [...] 08/30/2021 Assessment & Plan (03/12/2023 3:27 PM 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): Continue current levothyroxine dose. Will check thyroid function test and adjust levothyroxine dose accordingly. TSH goal lower normal Assessment & Plan (02/13/2022 2:37 PM 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): Continue current levothyroxine dose. Will check thyroid function test and adjust levothyroxine dose accordingly. 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 Biochemical evaluation with thyroid tumor markers. We will also obtain neck ultrasound for evaluation of the neck. If above are in acceptable range, will plan follow-up on yearly basis Assessment & Plan (02/13/2022 2:38 PM 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): No evidence of tumor recurrence on [...] Encounter for STD screening;Recorded Elsewhere: No Location: [facility] Source: EHR Chronic: N Practice ID: [id number] Billable Time: 01:15:00 PM Contraceptive management 04/23/2018 Overview (04/19/2023): Encounter for routine checking of intrauterine contraceptive device;Recorded Elsewhere: No Location: [facility] Source: EHR Chronic: N Practice ID: [id number] Billable Time: 09:45:00 AM Pelvic and perineal pain 02/27/2018 Overview (04/19/2023): Pelvic and perineal pain;Recorded Elsewhere: No Location: [facility] Source: EHR Chronic: N Practice ID: [id number] Billable Time: 11:00:00 AM Menstrual cycle disorder 05/19/2015 Overview (04/19/2023): Menometrorrhagia;Recorded Elsewhere: No Location: [facility] Source: EHR Chronic: N Practice ID: [id number] Billable Time: 10:30:00 AM Irregular menses 01/09/2015 Resolved Problems Problem Noted Date Diagnosed Date Resolved Date Abscess of left thigh 06/14/20222022 Hypoglycemia 02/13/2022 01/29/2023 Assessment & Plan (02/13/2022 2:39 PM 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): No documented low blood sugar Advised BG monitoring with symptoms to establish correlation & inform further work up Positive FLORENCIO (antinuclear antibody) 10/14/2021 01/29/2023 Rash 09/20/2021 01/29/2023 Sore throat 09/20/2021 01/29/2023 Infectious mononucleosis without complication 09/05/19 22 01/29/2023 Leg mass, left 09/09/2018 01/29/2023 Encounters Date Type Department Care Team Description 09/01/2024 Results Follow-Up [facility] Medical [facility] Family Medicine at [address] [phone] Garrett Sanders MD Comprehensive metabolic panel, PTH, Calcium, ionized, Additional followed-up results: 2 09/01/2024 Telephone [facility] Medical [facility] Family Medicine at [address] [phone] Garrett Sanders MD Prior Auth (PA on Tramadol) 08/29/2024 9:30 AM CDT - 08/29/2024 11:59 PM CDT Hospital Encounter [address] [address] Vitamin D deficiency Discharge Disposition: Discharge to home or self care 08/29/2024 9:30 AM CDT Lab [facility] Medical Group Outpatient Lab at [address] [phone] 08/25/2024 Results Follow-Up [facility] [id number] [place] [phone] Socrates Contreras MD TSH, T4, free 08/22/2024 Orders Only [facility] Family Medicine at [address] [phone] Garrett Sanders MD 08/20/2024 3:45 PM CDT Lab [facility] Medical [facility] Outpatient Lab at [address] [address] 08/20/2024 3:38 PM CDT - 08/20/2024 11:59 PM CDT Hospital Encounter [facility] [address] [place] [address] Post-surgical hypothyroidism Discharge Disposition: Discharge to home or self care 08/20/2024 1:30 PM CDT Office Visit [facility] [address] [facility] [address] [place] [address] Socrates Contreras MD Post-surgical hypothyroidism 08/14/2024 Results Follow-Up [facility] Medical [facility] Family Medicine at [address] [phone] Garrett Sanders MD XR Foot Left 3 or More Views 08/12/2024 4:45 PM CDT - 08/12/2024 11:59 PM CDT Hospital Encounter [facility] Diagnostic Imaging [facility] [place] [address] Acute right ankle pain; Left foot pain; Shortness of breath Discharge Disposition: Discharge to home or self care 08/07/2024 Telephone [facility] Medical [facility] Family Medicine at [address] [phone] Garrett Sanders MD PA for pregabalin 50 mg 08/05/2024 Telephone [facility] Family Medicine at [address] [place] [address] Garrett Sanders MD Prior Auth (PA on Pantoprazole) 08/05/2024 Telephone [facility] Family Medicine at [address] [place] [phone] Garrett Sanders MD Medical Question/Miscellaneous; PEER TO PEER CT HEAD WITHOUT CONTRAST 08/04/2024 Telephone [facility] Family Medicine at [address] [place] [phone] Garrett Sanders MD Prior Auth (PA on Linzess) 07/29/2024 Telephone [facility] Family Medicine at [address] [place] [phone] Garrett Sanders MD Prior Auth (PA on Pregabalin) 07/29/2024 Orders Only [facility] Family Medicine at [address] [phone] Garrett Sanders MD 07/27/2024 Patient Message [facility] Family Medicine at [address] [phone] Garrett Sanders MD Olanzapine treating my bipolar 07/25/2024 9:15 AM CDT Lab [address] [address] Chronic pain of multiple joints 07/25/2024 Results Follow-Up [facility] Family Medicine at [address] [phone] Garrett Sanders MD Vitamin D 25 hydroxy, Rheumatoid factor, Erythrocyte sedimentation rate, CRP (acute phase) 07/24/2024 3:30 PM CDT Office Visit [facility] Family Medicine at [address] [phone] Garrett Sanders MD Benign essential HTN (Primary Dx); Chronic pain of right ankle; Memory loss; Class 3 severe obesity due to excess calories with serious comorbidity and body mass index (BMI) of 40.0 to 44.9 in adult; Chronic pain of multiple joints 07/22/2024 Telephone [facility] Medical Group [facility] Care at [address] [phone] Garrett Sanders MD 07/20/2024 Results Follow-Up [facility] Family Medicine at [address] [phone] Garrett Sanders MD Celiac reflex panel, Tissue transglutaminase IgA (TGG-IgA Ab) 07/15/2024 9:00 AM CDT Lab [facility] Lab [address] [place] [address] Dyspepsia 07/15/2024 Telephone [facility] Family Medicine at [address] [place] [phone] Garrett Sanders MD Test Results 07/10/2024 11:45 AM CDT Office Visit [facility] Family Medicine at [address] [place] [phone] Garrett Sanders MD Chronic constipation (Primary Dx); Post-surgical hypothyroidism; Colitis 07/09/2024 Telephone [facility] Medicine at [address] [place] [phone] Garrett Sanders MD Appointment Request 07/08/2024 Telephone [facility] Medicine at [address] [place] [phone] Garrett Sanders MD 3rd no show letter sent 07/08/24 from Last 3 Months Immunizations Immunization Administration [...] on file Legal Sex Female 5:33 AM 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 Gender Identity Not on file Sexual [...] 9:14 AM CDT Height 170.2 cm (5' 7) 08/21/2024 9:14 AM CDT Body Mass Index [...] Procedure Name Priority Date/Time Associated Diagnosis Comments EGFR Routine 08/29/2024 9:30 AM CDT Vitamin D deficiency VITAMIN D 25 HYDROXY Routine 08/29/2024 9:30 AM CDT Vitamin D deficiency CALCIUM, IONIZED Routine 08/29/2024 9:30 AM CDT Vitamin D deficiency PTH Routine 08/29/2024 9:30 AM CDT Vitamin D deficiency COMPREHENSIVE METABOLIC PANEL Routine 08/29/2024 9:30 AM CDT Vitamin D deficiency REFLEX THYROGLOBULIN, TUMOR MARKER, IA, S Routine 08/20/2024 3:38 PM CDT THYROGLOBULIN REFLEX TO MS OR IA Routine 08/20/2024 3:38 PM CDT Post-surgical hypothyroidism T4, FREE Routine 08/20/2024 3:38 PM CDT [...] Routine 07/15/2024 8 :58 AM CDT Dyspepsia N. GONORRHOEAE/C. TRACHOMATIS AMPLIFICATION STAT 06/13/2022 3:09 PM CDT HEPATITIS PANEL, ACUTE STAT 02/01/2022 7:53 PM CDT from Last 3 Months or Most Recently Relevant to Health Maintenance Results * eGFR (08/29/2024 9:30 AM CDT) eGFR >90 >=60 mL/min/1. 73 m2 Comment: Interpretive Data [...] Current interpretive data was last reviewed 2021. Blood 08/29/2024 9:30 AM CDT 08/29/2024 2:09 PM CDT us Socrates Contreras MD LAB BLOOD ORDERABLES Final Resul t Performing Organization Address [facility] Co de Phone Number AYES BLAKE [address] Department of [employer] [place] [address] * Calcium, ionized (08/29/2024 9:30 AM CDT) Calcium, Ionized 4.75 4.50 - 5.10 mg/dL Comment:Testing performed by : [facility], [address] [place]., [address] Blood 08/29/2024 9:30 AM CDT 08/29/2024 5:14 PM CDT us Socrates Contreras MD LAB BLOOD ORDERABLES Final Resul t Performing Organization Address [facility] Co de Phone Number CECILEE BLAKE [address] [address] Department of [employer] [place] [address] * Vitamin D 25 hydroxy (08/29/2024 9:30 AM CDT) Vitamin D 25-OH 46 30 - 80 ng/mL Blood 08/29/2024 9:30 AM CDT 08/29/2024 2:09 PM CDT us Socrates Contreras MD LAB BLOOD ORDERABLES Final Resul t Performing Organization Address [facility] de Phone Number AYSE [address] [address] Department of [employer] [place] [address] * PTH (08/29/2024 9:30 AM CDT) PTH 20 15 - 65 pg/mL Blood 08/29/2024 9:30 AM CDT 08/29/2024 2:09 PM CDT Socrates Contreras MD LAB BLOOD ORDERABLES Final Resul t AYSE BLAKE [address] [address] [place] [address] * Comprehensive metabolic panel (08/29/2024 9:30 AM CDT) Sodium 140 135 - 145 mmol/L Potassium, pl 4.4 3.3 - 4.9 mmol/L [facility] Chloride 104 97 - 110 mmol/L [facility] CO2 24 22 - 32 mmol/L [facility] Anion gap 12 2 - 15 mmol/L [facility] BUN 12 6 - 25 mg/dL [facility] Creatinine 0.76 0.60 - 1.10 mg/dL [facility] Glucose 101 70 - 199 mg/dL [facility] Comment: Interpretive Data Fasting glucose >/= 126 [...] Current interpretive data was last revised 2022. Calcium 8.8 8.5 - 10.3 mg/dL [facility] Bilirubin, total 0.4 0.1 - 1.2 mg/dL [facility] Protein, pl 6.6 6.5 - 8.5 g/dL [facility] Albumin 3.8 3.5 - 5.0 g/dL [facility] Alk phos 44 40 - 130 Units/L [facility] ALT 41 7 - 45 Units/L [facility] AST 39 10 - 45 Units/L [facility] Blood 08/29/2024 9:30 AM CDT 08/29/2024 2:09 PM CDT Socrates Contreras MD LAB BLOOD ORDERABLES Final Resul t AYSE BLAKE [address] [address] [place] [address] * Reflex thyroglobulin, tumor marker, IA, S (08/20/2024 3:38 PM CDT) Thyroglobulin, Tumor Marker 1.0 < or = 33 ng/mL [place] [facility] Thyroglobulin interp See Footnote AYSE BLAKE Comment: Thyroglobulin (Tg) reference intervals are for patients with an intact thyroid and not for patients who have had surgery for thyroid cancer. Tg reference intervals in patients that have undergone thyroidectomy or any treatment for follicular thyroid cancer are dependent on the residual mass of the thyroid tissue after surgery. Tg results, regardless of concentration, should not be interpreted as absolute evidence for the presence or absence of papillary or follicular thyroid cancer. This result needs to be interpreted in the context of the clinical evaluation. ADDITIONAL INFORMATION PLEASE NOTE: The given cutoff of <1.8 IU/mL is for the detection of potential thyroglobulin antibody (TgAb) interference in thyroglobulin immunoassays. A thyroglobulin antibody (TgAb) reference cutoff of <4.0 IU/mL may be more suitable for the evaluation of autoimmune thyroiditis. The thyroglobulin and thyroglobulin antibody testing methods are immunoenzymatic assays manufactured by [employer] and performed on the [employer] DXI 800. Values obtained from different assay methods or kits may be different and cannot be used interchangeably. The results cannot be interpreted as absolute evidence for the presence or absence of malignant disease. Test Performed by: [place] [id number] Garde Manger: Horace León Ph.D.; CLIA# [id number] Blood 08/20/2024 3:38 PM CDT 08/20/2024 9:18 PM CDT us Socrates Contreras MD LAB BLOOD ORDERABLES Final Resul t AYSE BLAKE [address] [address] Department [place] [address] [facility] * Thyroglobulin reflex to MS or IA (08/20/2024 3:38 PM CDT) Anti-thyroglobulin <1.8 <1.8 IUnits/mL [facility] Comment: Thyroglobulin Antibody < 1.8 IU/mL. Thyroglobulin performed by Immunoassay to follow. Test Performed by: [facility] [address] [place] [address] Garde Manger: Horace León Ph.D.; CLIA# [id number] Blood 08/20/2024 3:38 PM CDT 08/20/2024 9:18 PM CDT us Socrates Contreras MD LAB BLOOD ORDERABLES Final Resul t Performing Organization Address [facility] Co de Phone Number AYSE [address] [address] [place] [address] [place] [facility] * TSH (08/20/2024 3:38 PM CDT) Thyroid Stimulating Hormone 0.94 0.30 - 4.20 mcIUnit/mL Blood 08/20/2024 3:38 PM CDT 08/20/2024 9:18 PM CDT us Socrates Contreras MD LAB BLOOD ORDERABLES Final Resul t Performing Organization Address [facility] Co de Phone Number AYSE [address] [address] [place] [address] * T4, free (08/20/2024 3:38 PM CDT) Free T4 1.52 0.90 - 1.70 ng/dL Blood 08/20/2024 3:38 PM CDT 08/20/2024 9:18 PM CDT us Socrates Contreras MD LAB BLOOD ORDERABLES Final Resul t Performing Organization Address [facility] Co de Phone Number AYSE [address] [address] [place] [address] * XR Foot Left 3 or More [...] by Arik Camacho M.D. T: Report ID: [id number] Reading Location: [id number] Procedure Note Arik Camacho MD - 08/13/2024 [...] 9:11 PM - Electronically signed by Arik OCONNOR T: Report ID: [id number] Reading Location: [id number] us Garrett Sanders MD IMG XR PROCEDURES [...] by Arik Camacho M.D. T: Report ID: [id number] Reading Location: [id number] Procedure Note Arik Camacho MD - 08/13/2024 [...] by Arik Camacho M.D. T: Report ID: [id number] Reading Location: [id number] us Garrett Sanders MD IM XR PROCEDURES [...] 5:07 PM - Electronically signed by Ryan CARMONA T: Report ID: [id number] Reading Location: [place] [address] Procedure Note Ryan Colin MD - 08/19/2024 EXAM DESCRIPTION: XR CHEST PA LATERAL 2 VIEWS REASON FOR STUDY: cough Pt has complaints sob x3days. F/U Pt states on last chest images Dr sawglass opacities TECHNIQUE: 2 radiographic view(s) of the [...] 5:07 PM - Electronically signed by Ryan CARMONA T: Report ID: [id number] Reading Location: [place] [address] Garrett Sanders MD IM XR PROCEDURES Final Result * FLORENCIO screen [...] last revised on 2019. Testing performed by: [facility], [address] [place]., [address] Blood 07/25/2024 9:30 AM CDT 07/25/2024 11:08 AM CDT Garrett Sanders MD LAB BLOOD ORDERABLES Final Resul t Performing Organization Address [facility] Co de Phone Number [address] [employer] [place] [address] * Vitamin D 25 hydroxy (07/25/2024 9:30 AM CDT) Pathologist [facility] Vitamin D 25-OH 34.0 30.0 - 80.0 ng/mL Blood 07/25/2024 9:30 AM CDT 07/25/2024 9:46 AM CDT Garrett Sanders MD LAB BLOOD ORDERABLES Final Resul t Performing Organization Address [facility] Co de Phone Number [address] [employer] [place] [address] * Erythrocyte sedimentation rate (07/25/2024 9:30 AM CDT) Pathologist [facility] Erythrocyte sedimentation rate 14 1 - 20 mm/hr Blood 07/25/2024 9:30 AM CDT 07/25/2024 9:46 AM CDT Garrett Sanders MD LAB BLOOD ORDERABLES Final Resul t Performing Organization Address [facility] Co de Phone Number [address] [employer] [place] [address] * Rheumatoid factor (07/25/2024 9:30 AM CDT) Rheumatoid factor, quant <10.0 <=15.0 IUnits/mL Blood 07/25/2024 9:30 AM CDT 07/25/2024 9:46 AM CDT Garrett Sanders MD LAB BLOOD ORDERABLES Final Resul t Performing Organization Address [facility] Co de Phone Number C[address] [employer] [place] [address] * CRP (acute phase) (07/25/2024 9:30 AM CDT) CRP 3.4 <=10.0 mg/L Blood 07/25/2024 9:30 AM CDT 07/25/2024 9:46 AM CDT Garrett Sanders MD LAB BLOOD ORDERABLES Final Resul t Performing Organization Address [facility] de Phone Number [address] [address] * Celiac reflex panel (07/15/2024 8:58 AM CDT) IgA 201 61 - 356 mg/dL [place] [facility] Celiac disease interpretation See Footnote AYSE Comment: See Comment: Negative serology. Celiac disease unlikely. However, approximately 10% of patients with celiac disease are seronegative. Also, patients who are already adhering to a gluten-free diet may be seronegative. If celiac disease is highly clinically suspected, consider HLA-DQ typing. Test Performed by: [place] [address] Garde M[employer]: Horace León Ph.D.; CLIA# [id number] Blood 07/15/2024 8:58 AM CDT 07/15/2024 9:41 AM CDT Garrett Sanders MD LAB BLOOD ORDERABLES Final Resul t Performing Organization Address [facility] de Phone Number [address] [employer] [place] [address] [place] [facility] * Tissue transglutaminase IgA (TGG-IgA Ab) (07/15/2024 8:58 AM CDT) TTG ab, IgA <1.2 <4.0 (Negative) units/mL Comment: Test Performed by: [facility] [address] [place] [address] [employer] M[employer]: Horace León Ph.D.; CLIA# [id number] Interpretive data Negative: <15 units/mL Positive: > or equal to 15 units/mL Current interpretive data was last revised on 2016. Testing performed by: [facility], [address] [place] [address] Blood 07/15/2024 8:58 AM CDT 07/15/2024 9:41 AM CDT us Garrett Sanders MD LAB BLOOD ORDERABLES Final Resul t [address] Department [place] [address] * N. gonorrhoeae/C. trachomatis Amplification Urine (06/13/2022 3:09 PM CDT) [facility] C. trachomatis Not Detected Not Detected AYSE Comment:Testing performed by : [facility], [address] [place] [address]., [id number] N. gonorrhoeae Not Detected Not Detected AYSE Comment: Interpretive Data Testing performed by the [facility]. This assay detects Chlamydia trachomatis and Neisseria gonorrhoeae by nucleic acid amplification testing (NAAT). This test is approved by the [facility] Food and Drug Administration and the performance characteristics have been verified by the laboratory. The performance characteristics of this test have not been evaluated in individuals less than 14 years of age. Current Interpretive Data was last revised on 2019. Testing performed by: [facility], [address] [place] [address]., [id number] Urine (None) 06/13/2022 3:09 PM CDT 06/13/2022 4:09 PM CDT us Maria Teresa [facility]IV[facility] LAB MICROBIOLOGY - GENERAL ORDER SADIA Final Result Performing Organization Address [facility] de Phone Number AYSE [address] [facility] [employer] [place] [address] * Hepatitis panel, acute (02/01/2022 7:53 PM CDT) Hep A IgM Nonreactive Nonreactive [facility] Comment: Interpretive Data: If Hep A IgM Ab is reported as Equivocal, a new sample should be drawn in two weeks for testing. Current interpretive data was last revised on 19. Hep B core IgM Nonreactive Nonreactive [facility] Comment: Interpretive Data If HepB Core IgM Ab is reported as Equivocal, a new sample should be drawn in two weeks for testing. Current interpretive data was last revised on 19. Hep C Ab Nonreactive Nonreactive [facility] Comment: Interpretive Data Nonreactive: Antibodies to HCV [...] revised on 2019. HepBsAg Nonreactive Nonreactive [facility] Blood 02/01/2022 7:53 PM CDT 02/01/2022 11:28 PM CDT Liz Tucker DO LAB MICROBIOLOGY - GENERAL ORDE RABRIANA Final Result Performing Organization Address [facility] Co de Phone Number [phone] [facility] Department of [employer] [place] [address] from Last 3 Months or Most Recently Relevant to Health Maintenance Insurance [facility] Care Teams Manual Plate Filler Relationship Specialty Start Date End Date Garrett Sanders MD [address] [place] [address] PCP - General Family Medicine 04/09/23
--- OUTSIDE RECORDS SUMMARY | 2024-09-07 15:31 | XMS_ITS | Encounter Summary ---
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
--- OUTSIDE RECORDS SUMMARY | 2024-09-07 15:31 | XMS_ITS | Data Portability ---
Author Organization [facility] [place] Address [address] [place] [address] Assessment Encounter Date Assessment Date Assessment LastModified [...] recorded. Lab hsv-2 igg Ab, serum 2023 [facility] (Lab), [address] [place], [address], 4 02:06:20 hbcab (hepatitis B core Ab) igm, serum 2023 [facility] (Lab), [address] [place], [address], 4 02:06:20 HBsAg (hepatitis B surface Ag), serum 2023 [facility] (Lab), [address] [place], [address], 4 02:06:17 hepatitis C virus Ab, serum 2023 024 [facility] (Lab), [address], [place], [address], 4 02:06:18 HIV 1+2 AB + HIV 1 p24 Ag, qualitative immunoassay , serum 2023 024 [facility] (Lab), [address], [place], [address], 4 02:06:17 RPR (rapid plasma reagin), serum 2023 024 [facility] (Lab), [address], [place], [address], 4 02:06:20 CBC w/ auto diff 2023 024 [facility] (Lab), [address], [place], [address], 4 02:06:16 dhea-sulfat e, serum 2023 024 [facility] (Lab), [address], [place], [address], 4 02:06:17 hormone panel, serum or plasma 2023 024 [facility] (Lab), [address], [place], [address], 4 02:06:19 progesteron e, serum 2023 024 [facility] (Lab), [address], [place], [address], 4 02:06:18 prolactin, serum 2023 024 [facility] (Lab), [address], [place], [address], 4 02:06:18 shbg (sex hormone-bin ding globulin), serum 2023 024 [facility] (Lab), [address], [place], [address], 4 02:06:18 TSH, serum or plasma 2023 024 [facility] (Lab), [address], [place], [address], 4 02:06:19 testosteron e free/testos terone total, ratio, serum 2023 024 [facility] (Lab), [address], [place], [address], 4 02:06:20 urinalysis, dipstick 2022 023 [facility] , [address], [address], [place], [address], 3 11:45:12 Referral None recorded. Procedures None recorded. Surgeries laparoscopy , diagnostic (SURG) 2024 025 [facility] [facility], [address] [facility] [address], [place], [address], 5 14:34:35 Imaging US, pelvis [address], [address], [place], [address], 4 20:23:49 US, transvagina l [address], [address], [place], [address], 4 20:23:49 Medication Orders Macrobid 100 mg capsule 2022 023 [id number], [address], [place], [id number], 4 16:18:20 Patient TargetsNo targets recorded. Patient [...] donaldson , Rose Haro cted: 10/11 1338 [employer] Order ing Locat ion: [place] Patho [...] as clini karli warra nted. Not Available [facility] (Lab) [address], [place], [address], 10/13/2022 19:56:22 10/12/19 23 10/11/2022 TRICH OMONA S VAGIN CUCA (RRNA ) trichomonas vaginalis ribosomal RNA (rrna) Negati ve negati ve Not Available [facility] (Lab) [address], [place], [address], 10/13/2022 19:56:23 10/12/19 23 10/11/2022 CT/GC (STEFANY) , THINP REP VIAL chlamydia trachomatis, PCR Negati ve negati ve Not Available [facility] (Lab) [address] [place], [address], 10/13/2022 19:56:24 10/12/19 23 10/11/2022 CT/GC (STEFANY) , THINP REP VIAL neisseria gonorrhoeae, PCR Negati ve negati ve Not Available [facility] (Lab) [address], [place], [address], 10/13/2022 19:56:24 10/12/19 23 10/11/2022 urina lysis , dipst ick Protein trace Not Available [facility] [address], [place], [address], 10/11/2022 11:34:25 10/12/19 23 10/11/2022 urina lysis , dipst ick pH 5 Not Available [facility] [address], [place], [address], 10/11/2022 11:34:25 10/12/19 23 10/11/2022 urina lysis , dipst ick Specific [place] 1.015 Not Available [facility] [address], [place], [address], 10/11/2022 11:34:25 03/12/20 24 03/12/2024 CT/GC AND TRICH OMONA S VAGIN CUCA (RRNA ), URINE chlamydia trachomatis, PCR Negati ve negati ve Not Available [facility] (Lab) [address], [place], [address], 03/13/2024 13:33:23 03/12/20 24 03/12/2024 CT/GC AND TRICH OMONA S VAGIN CUCA (RRNA ), URINE neisseria gonorrhoeae, PCR Negati ve negati ve Not Available [facility] (Lab) [address], [place], [address], 03/13/2024 13:33:23 03/12/20 24 03/12/2024 CT/GC AND TRICH OMONA S VAGIN CUCA (RRNA ), URINE trichomonas vaginalis ribosomal RNA (rrna) Negati ve negati ve Not Available [facility] (Lab) [address], [place], [address], 03/13/2024 13:33:23 03/12/20 24 03/12/2024 CBC W/DIF F WBC 10.2 10'3/ uL 3.5-10 .5 Not Available [facility] (Lab) [address], [place], [address], 03/18/2024 02:06:16 03/12/20 24 03/12/2024 CBC W/DIF F RBC 4.76 10'6/ uL (based on docume nted legal sex) 3.80-5 .20 Not Available [facility] (Lab) [address], [place], [address], 03/18/2024 02:06:16 03/12/20 24 03/12/2024 CBC W/DIF F HGB 15.1 g/dL (based on docume nted legal sex) 11.6-1 5.4 Not Available [facility] (Lab) [address], [place], [address], 03/18/2024 02:06:16 03/12/20 24 03/12/2024 CBC W/DIF F HCT 46.6 % (based on docume nted legal sex) 34.0-4 5.0 high Not Available [facility] (Lab) [address], [place], [address], 03/18/2024 02:06:16 03/12/20 24 03/12/2024 CBC W/DIF F MCV 97.9 fL 80.0-9 9.0 Not Available [facility] (Lab) [address], [place], [address], 03/18/2024 02:06:16 03/12/20 24 03/12/2024 CBC W/DIF F MCH 31.7 pg 27.0-3 4.0 Not Available [facility] (Lab) [address], [place], [address], 03/18/2024 02:06:16 03/12/20 24 03/12/2024 CBC W/DIF F MCHC 32.4 g/dL 32.0-3 5.5 Not Available [facility] (Lab) [address], [place], [address], 03/18/2024 02:06:16 03/12/20 24 03/12/2024 CBC W/DIF F RDW 12.9 % 11.0-1 5.0 Not Available [facility] (Lab) [address], [place], [address], 03/18/2024 02:06:16 03/12/20 24 03/12/2024 CBC W/DIF F plt 419 10'3/ uL 150-40 0 high Not Available [facility] (Lab) [address], [place], [address], 03/18/2024 02:06:16 03/12/20 24 03/12/2024 CBC W/DIF F MPV 10.5 fL 8.8-12 .1 Not Available [facility] (Lab) [address], [place], [address], 03/18/2024 02:06:16 03/12/20 24 03/12/2024 CBC W/DIF F NRBC's 0.0 % 0.0 Not Available [facility] (Lab) [address], [place], [address], 03/18/2024 02:06:16 03/12/20 24 03/12/2024 CBC W/DIF F absolute NRBCs 0.0 10'3/ uL no refere nce range establ ished Not Available [facility] (Lab) [address], [place], [address], 03/18/2024 02:06:16 03/12/20 24 03/12/2024 CBC W/DIF F neutrophils 62.8 % 34.0-7 3.0 Not Available [facility] (Lab) [address], [place], [address], 03/18/2024 02:06:16 03/12/20 24 03/12/2024 CBC W/DIF F lymphocytes 24.6 % 15.0-5 0.0 Not Available [facility] (Lab) [address], [place], [address], 03/18/2024 02:06:16 03/12/20 24 03/12/2024 CBC W/DIF F monocytes 9.7 % 1.0-15 .0 Not Available [facility] (Lab) [address], [place], [address], 03/18/2024 02:06:16 03/12/20 24 03/12/2024 CBC W/DIF F eosinophils 1.4 % 0.0-8. 0 Not Available [facility] (Lab) [address], [place], [address], 03/18/2024 02:06:16 03/12/20 24 03/12/2024 CBC W/DIF F basophils 1.0 % 0.0-2. 0 Not Available [facility] (Lab) [address], [place], [address], 03/18/2024 02:06:16 03/12/20 24 03/12/2024 CBC W/DIF F immature granulocytes 0.5 % no define d refere nce range Not Available [facility] (Lab) [address] [place], [address], 03/18/2024 02:06:16 03/12/20 24 03/12/2024 CBC W/DIF F absolute neutrophils 6.4 10'3/ uL 1.5-8. 0 Not Available [facility] (Lab) [address] [place], [address], 03/18/2024 02:06:16 03/12/20 24 03/12/2024 CBC W/DIF F absolute lymphocytes 2.5 10'3/ uL 1.0-4. 0 Not Available [facility] (Lab) [address], [place], [address], 03/18/2024 02:06:16 03/12/20 24 03/12/2024 CBC W/DIF F absolute monocytes 1.0 10'3/ uL 0.2-1. 0 Not Available [facility] (Lab) [address], [place], [address], 03/18/2024 02:06:16 03/12/20 24 03/12/2024 CBC W/DIF F absolute eosinophils 0.1 10'3/ uL 0.0-0. 6 Not Available [facility] (Lab) [address], [place], [address], 03/18/2024 02:06:16 03/12/20 24 03/12/2024 CBC W/DIF F absolute basophils 0.1 10'3/ uL 0.0-0. 3 Not Available [facility] (Lab) [address], [place], [address], 03/18/2024 02:06:16 03/12/20 24 03/12/2024 CBC W/DIF [...] resul ts are expec carol. Not Available [facility] (Lab) [address], [place], [address], 03/18/2024 02:06:16 03/12/20 24 03/12/2024 HEPAT ITIS B SURFA CE ANTIG EN hepatitis B surface antigen Non-re active non-re active This assay was perfo rmed using [employer] ratio n reage nts and test kits. Value s obtai cora with other assay metho ds or kits canno t be used inter daily eagayley . Not Available [facility] (Lab) [address], [place], [address], 03/18/2024 02:06:17 03/12/20 24 03/12/2024 HIV 1/2 ANTIG EN/AN TIBOD Y, REFLE X CONFI RMATI ON HIV antigen/anti body Nonrea ctive nonrea ctive HIV-1 antig en and HIV-1 /HIV- 2 antib odies were not detec carol. No labor atory evide nce of HIV infec tion. Not Available [facility] (Lab) [address], [place], [address], 03/18/2024 02:06:17 03/12/20 24 03/12/2024 DHEA SULFA TE DHEA-sulfate 144 ug/dL Femal e Range s Age(y ) Range (ug/d L) 10-15 34-28 0 15-20 65-36 8 20-25 148-4 07 25-35 99-34 0 35-45 61-33 7 45-55 35-25 6 55-65 19-20 5 65-75 9-246 > 75 12-15 4 Not Available [facility] (Lab) [address], [place], [address], 03/18/2024 02:06:17 03/12/20 24 03/12/2024 HEPAT ITIS C ANTIB ANIKET SCREE N, REFLE X TO CONFI RMATI ON hepatitis C antibody Non-re active non-re active Antib odies to HCV Not Detec carol, does not exclu de the possi bilit y of expos ure to HCV. Not Available [facility] (Lab) [address], [place], [address], 03/18/2024 02:06:18 03/12/20 24 03/12/2024 HUMAN SEX HORMO NE HANNAH NG GLOBU [place] sex hormone binding globulin 16.8 nmole s/L 18.2-1 35.5 low Not Available [facility] (Lab) [address], [place], [address], 03/18/2024 02:06:18 03/12/20 24 03/12/2024 PROLA CTIN prolactin, total 25.70 NG/mL 4.79-2 3.30 high This assay was perfo rmed using [employer] ratio n reage nts and test kits. Value s obtai cora with other assay metho ds or kits canno t be used inter [facility] . Not Available [facility] (Lab) [address] [place], [address], 03/18/2024 02:06:18 03/12/20 24 03/12/2024 PROGE STERO NE progesterone 6.69 NG/mL This assay was perfo rmed using [employer] ratio n reage nts and test kits. Value s obtai cora with other assay metho ds or kits canno t be used inter [facility] . Femal e Proge stero ne Range s: Folli cular phase 0.06- 0.89 ng/mL Ovula tion phase 0.12- 12.00 ng/mL Lutea l phase 1.83- 23.90 ng/mL Postm enopa usal <0.05 -0.13 ng/mL Healt hy Pregn ant Women 1st Trime ster 11.0- 44.30 2nd Trime ster 25.40 -83.3 0 3rd Trime ster 58.70 -214. 00 Not Available [facility] (Lab) [address] [place], [address], 03/18/2024 02:06:18 03/12/20 24 03/12/2024 FSH, LH, ESTRA DIOL estradiol 95.5 pg/mL This assay was perfo rmed using [employer] ratio n reage nts and test kits. Value s obtai cora with other assay metho ds or kits canno t be used inter [facility] . Femal e Estra diol Range s: Folli cular phase 12.4- 233 pg/mL Ovula tion phase 41.0- 398 pg/mL Lutea l phase 22.3- 341 pg/mL Postm enopa usal <5-13 8 pg/mL Healt hy Pregn ant Women 1st Trime ster 154-3 243 pg/mL 2nd Trime ster 1561- 81024 pg/mL 3rd Trime ster 8525- >3000 0 pg/mL Not Available [facility] (Lab) [address] [place], [address], 03/18/2024 02:06:19 03/12/20 24 03/12/2024 FSH, LH, [...] use: 25.8- 134.8 mIU/m L Not Available [facility] (Lab) [address], [place], [address], 03/18/2024 02:06:19 03/12/20 24 03/12/2024 FSH, LH, [...] use: 7.7-5 8.5 mIU/m L Not Available [facility] (Lab) [address] [place], [address], 03/18/2024 02:06:19 03/12/20 24 03/12/2024 T4 FREE T4, free 0.77 NG/dL 0.60-1 .40 This assay is susce ptibl e to inter feren ce from high level s of bioti n which may false ly eleva te resul ts. Gifty carreno late with clini lakisha findi ngs. Not Available [facility] (Lab) [address], [place], [address], 03/18/2024 02:06:19 03/12/20 24 03/12/2024 TSH, REFLE X FREE T4 TSH 101.21 uIU/m L 0.30-5 .33 high Not Available [facility] (Lab) [address], [place], [address], 03/18/2024 02:06:19 03/12/20 24 03/12/2024 HERPE S SIMPL EX VIRUS TYPE 2 SPECI FIC AB, IGG herpes simplex virus 2 IgG Negati ve negati ve Not Available [facility] (Lab) [address], [place], [address], 03/18/2024 02:06:20 03/12/20 24 03/12/2024 HERPE S SIMPL EX VIRUS TYPE 2 SPECI FIC AB, IGG herpes simples virus 2 IgG, quant <0.2 ai 0.0-0. 8 Not Available [facility] (Lab) [address], [place], [address], 03/18/2024 02:06:20 03/12/20 24 03/12/2024 HEPAT ITIS B CORE, IGM hepatitis B core IgM antibody Non-re active non-re active IgM anti- HBc not detec carol. Does not exclu de the possi bilit y of expos ure to or infec tion with HBV. Not Available [facility] (Lab) [address], [place], [address], 03/18/2024 02:06:20 03/12/20 24 03/12/2024 RPR SCREE N, REFLE X TITER /CONF IRMAT ION RPR screen Nonrea ctive nonrea ctive Not Available [facility] (Lab) [address] [place], [address], 03/18/2024 02:06:20 03/12/20 24 03/12/2024 TESTO STERO NE, FREE( DIALY SIS) AND TOTAL (LC/M S/MS) testosterone , total 26 NG/dL 2-45 For addit ional infor gifty oliva e refer to http: //[facility] deena hancock.que stdia gnost ics.c om/fa q/ Total Testo stero neLCM SMSFA Q165 (This link is being provi ded for infor matio nal/ educa diana l purpo ses only. ) This test was devel oped and its genia tical perfo rmanc e nasra cteri stics have been deter mined by [employer] [place], [place]. It has not been clear ed or appro thu by the U.S. Food and Drug Admin istra tion. This assay has been valid ated pursu ant to the CLIA regul ation s and is used for clini lakisha purpo ses. Not Available [facility] (Lab) [address], [place], [address], 03/18/2024 02:06:20 03/12/20 24 03/12/2024 TESTO STERO NE, FREE( DIALY SIS) AND TOTAL (LC/M S/MS) testosterone , free 5.1 pg/mL 0.1-6. 4 This test was devel oped and its genia tical perfo rmanc e nasra cteri stics have been deter mined by [employer] [facility] [facility] [place]. It has not been clear ed or appro thu by the U.S. Food and Drug Admin istra tion. This assay has been valid ated pursu ant to the CLIA regul ation s and is used for clini lakisha purpo ses. Perfo rming Organ izati on [facility] n: Site ID: AMD Name: [employer] [facility] annika Addre ss: [id number] [place], [place] Direc tor: Allegra Archibald MD PhD Not Available [facility] (Lab) [address], [place], [address], 03/18/2024 02:06:20 03/27/20 24 03/27/2024 PLATE LET COUNT plt 416 10'3/ uL 150-40 0 high Not Available [facility] (Lab) [address], [place], [address], 03/28/2024 05:46:43 03/27/20 24 03/27/2024 TSH TSH 81.15 uIU/m L 0.30-5 .33 high Not Available [facility] (Lab) [address], [place], [address], 03/28/2024 05:46:44 02/14/20 24 02/14/2024 US, pelvi s No observ ation record ed. [email or web address], [place], [address], 02/14/2024 18:05:32 02/14/20 24 02/14/2024 US, trans vagin al No observ ation record ed. [email or web address], [place], [address], 02/14/2024 18:05:41 02/14/20 24 02/14/2024 US, pelvi s No observ ation record ed. [email or web address] [address], [place], [address], 02/14/2024 20:20:04 Result Notes None recorded. Problems Name Problem SNOMED Code Status Onset Date Resolution Date Notes Provider Name and Address Organization Details Recorded Time Syphilis test finding 054863185 Completed 201809/22/2021 Encounter for STD screening ;Recorded Elsewhere : No Locati on: [facility] So urce: EHR Chron ic: N Practic e ID: [id number] Bill able Time: 01:15:00 PM Tanika Silver [place], [place] - [facility] 2 15:03:32 Finding of pattern of menstrua l cycle 608279651 Completed 201509/22/2021 Menometro rrhagia;R ecorded Elsewhere : No Locati on: [facility] So urce: EHR Chron ic: N Practic e ID: [id number] Bill able Time: 10:30:00 AM Tanika [facility] 2 15:03:31 Pelvic and perineal pain 720543622 Completed 201709/22/2021 Pelvic and perineal pain;Raghavendra rded Elsewhere : No Locati on: [facility] So urce: EHR Chron ic: N Practic e ID: [id number] Bill able Time: 11:00:00 AM Tanika [facility] 2 15:03:31 Insertio n of intraute rine contrace ptive device Completed 201709/22/2021 Encounter for insertion of intrauter ine contracep tive device;Re corded Elsewhere : No Locati on: [facility] So urce: EHR Chron ic: N Practic e ID: [id number] Bill able Time: 01:30:00 PM Tanika [facility] 2 15:03:[address] Concept Completed 201709/22/2021 Encntr for routine child health exam w/o abnormal findings; Recorded Elsewhere : No Locati on: [facility] So urce: EHR Chron ic: N Practic e ID: [id number] Bill able Time: 10:30:00 AM Tanika [facility] 2 15:03:31 Localize d swelling , mass and lump, neck Completed 201709/22/2021 Localized swelling, mass and lump, neck;Raghavendra rded Elsewhere : No Locati on: [facility] So urce: EHR Chron ic: N Practic e ID: [id number] Bill able Time: 10:30:00 AM Tanika [facility] 2 15:03:[address] Concept Completed 201709/22/2021 Well woman check w/o abnormal finding;R ecorded Elsewhere : No Locati on: [facility] So urce: EHR Chron ic: N Practic e ID: [id number] Bill able Time: 10:30:00 AM Tanika Silver [facility] 2 15:03:31 Contrace ptive sheath status [id number] Completed 201809/22/2021 Encounter for routine checking of intrauter ine contracep tive device;Re corded Elsewhere : No Locati on: [facility] So urce: EHR Chron ic: N Practic e ID: [id number] Bill able Time: 09:45:00 AM Tanika Silver [facility] 2 15:03:31 Problem Notes None recorded. Procedures Surgical History Date Name Laterality Status Provider Name and Address Organization Details Recorded Time 3 Date of Last Pap Smear completed Kerri Delaney [facility] 03/12/2024 16:19:24 9 Thyroid Surgery completed Purnima Walalce [facility] 03/14/2022 17:28:33 Imaging Results None recorded. Procedure Notes None recorded. Medical Equipment None [...] 1 T PO D FOR 4 DAYS 12/13 /2022 completed Not Available Not Available Not Available clindamyc in HCl 75 mg capsule take 2 capsule by oral route every 6 hours 08/09 completed Prescrib ed Juan C e: Yes Loca tion: Jessica garcia [facility] odify By: marcelina hernadez DateTime : [...] Not Available amlodipin e 5 mg tablet 08/24 /2022 completed Not Available Not Available Not Available [...] route every day 02/27 completed Prescrib ed Elsewher e: No Locat ion: [facility] odify By: janelle weir DateTime : 10/25/19 [...] Prescrib ed Elsewher e: No Locat ion: [facility] odify By: [email or web address] Garcia ncounter DateTime : 11/17/19 16 04:30:01 PM Not Available Not Available Not Available Lomedia 24 Fe 1 mg-20 mcg (24)/75 mg (4) tablet TAKE 1 TABLET BY ORAL ROUTE EVERY DAY 02/27 completed Prescrib ed Elsewher e: No Locat ion: [facility] odify By: janelle Garcia ncounter DateTime : [...] Updated DateTime 04/09/2024 175.26 cm 41.6 kg/m2 376346.0 5 g 136 mm[Hg] 86 mm[Hg] Tami Dubose [facility] 5 16:37:02 Date Recorded Body height Body mass index (BMI) Body weight Systolic blood pressure Diastolic blood pressure Provider Name and Address Organization Details Last Updated DateTime 10/11/2022 175.26 cm 46.1 kg/m2 215743.8 2 g 115 mm[Hg] 75 mm[Hg] Kerri Delaney [facility] 3 11:30:12 Date Recorded Body height Body mass index (BMI) Body weight Systolic blood pressure Diastolic blood pressure Provider Name and Address Organization Details Last Updated DateTime 03/12/2024 175.26 cm 40.3 kg/m2 749322.7 2 g 132 mm[Hg] 86 mm[Hg] Kerri Delaney [facility] 4 16:17:16 Social History Question Answer Notes LastModified by Organizat ion Details LastModified Time Tobacco Smoking Status Never Smoker Purnima boyce, [facility] 03/14/2022 17:28:01 Are You Blind Or Do You Have Difficulty Seeing? No [email or web address] Information n ot available 03/14/2022 What Is Your Level Of Caffeine Consumption? Occasional [email or web address] Information not available 03/14/2022 In The 14 Days Before Symptom Onset, Have You Had Close Contact With A Laboratory-confirm ed COVID-19 While That Case Was Ill? No [email or web address] Information n ot available 03/14/2022 In The 14 Days Before Symptom Onset, Have You Had Close Contact With A Person Who Is Under Investigation For COVID-19 While That Person Was Ill? No [email or web address] Information not available 03/14/2022 Have You Been To An Area Known To Be High Risk For COVID-19? No [email or web address] Information not available 03/14/2022 Are You Deaf Or Do You Have Serious Difficulty Hearing? No [email or web address] Information not available 03/14/2022 What Type Of Diet Are You Following? REGULAR [email or web address] Information n ot available 03/14/2022 Have You Ever Been Counseled For Unhealthy Alcohol Use? No Information not available 03/14/2022 Do You Use Your Seat Belt Or Car Seat Routinely? Yes [email or web address] Information not available 03/14/2022 Do You Have Smoke And Carbon Monoxide Detectors In Your Home? Yes [email or web address] Information not available 03/14/2022 Do You Use Sunscreen Routinely? Yes [email or web address] Information not available 03/14/2022 Has Tobacco Cessation Counseling Been Provided? No [email or web address] Information not available 03/14/2022 Do You Have Difficulty Walking Or Climbing Stairs? No [email or web address] Information not available 03/14/2022 Sex: Unknown Functional Status Question Answer Note LastModified by Organizat ion Details LastModified Time Do you use any illicit or recreational drugs? No Information not available 03/14/2022 Do you or have you ever used any other forms of tobacco or nicotine? No [email or web address] Information not available 03/14/2022 What is your level of alcohol consumption? Occasional [email or web address] Information not available 03/14/2022 Are you able to walk? YESWOREST [email or web address] Information not available 03/14/2022 Are you able to care for yourself? Yes Information n ot available 03/14/2022 Do you have difficulty dressing or bathing? No [email or web address] Information not available 03/14/2022 What is your exercise level? Occasional Information not available 03/14/2022 Mental Status Question Answer Note LastModified by Organization D etails LastModified Time Do you feel stressed (tense, restless, nervous, or anxious, or unable to sleep at night)? [id number] [email or web address] Information not available 03/14/2022 Family History Relationship Description Onset Age of this Age Resolved Age Notes LastModified by Organization Details LastModified Time Mother Asthma [email or web address] Not available 11/26/2019 16:58:51 Paternal Grandfather Diabetes mellitus [email or web address] Not available 11/25 16:59:00 Paternal Grandfather Hypertensive disorder Not available 11/25 16:59:09 Paternal Grandfather Heart disease Not available 11/25 16:59:22 Paternal Grandfather Malignant tumor of colon [email or web address] Not available 11/25 16:59:34 Maternal Grandmother Heart disease Not available 11/25 16:59:55 Maternal Grandmother Hypertensive disorder [email or web address] Not available 11/25 17:00:08 Maternal Grandfather Heart disease [email or web address] Not available 11/25 17:00:21 Father Asthma Not available 11/26/2019 17:00:34 Paternal Grandmother Malignant tumor of breast [email or web address] Not available 2024 16:37:55 Medical History Condition [...] SNOMED-CT Code Diagnosis ICD10 Code Diagnosis Note [id number] Magali Gleason [facility] [address],[place] [address] 03/23/2023 13:50:24 03/27/2023 09:10:53 [id number] [facility] [address] [place] [address] 09/22/2021 15:31:57 09/23/2021 15:52:47 Gynecologic examination 81940881 Z01.419 Take Calcium with Vitamin D 1200mg [...] Screen naRoutine Labs na Pain in pelvis 37432316 R10.2 Today we agreed to update vaginal [...] All questions answered to patient satisfacti on. [id number] Cristian Ruelas MD [facility] [address],[place] [address] 09/27/2021 16:41:33 09/27/2021 17:24:05 Pain in pelvis 10247268 R10.2 [id number] Magali [facility] [address],[place] [address] 10/06/2021 15:30:10 10/06/2021 16:12:13 Pain in pelvis 26378659 R10.2 Reviewed US which was wnl.Her pelvic pain sx's have resolvedPo ssible cyst had ruptured prior to USMonitor for now Malaise and fatigue 8579 03080 R23.2 Voices that she is generally not feeling well.This started about an hour ago.She questions if her blood sugars are low as hasn't eaten lunch yet.Denies SOB/Chest pain/Vomit ingShe gives off a general appearance of malaise, voices fatigue, nausea, feels like a limp noodle; sweating, flushed, pale; general rash up/down legs/arms (??if this is Raynaud's vs rash).Neg fever which was taken today.Offe red to drive her to [facility].S he declined.V oices that she feels she can drive herself.Sh radha has food in the car as well & states she will eat a few bites & finish the water given.Her exam was wnl except for her presentati on flushing, fatigue, profuse sweating.I again offered to arrange transpor salud to hospital for full evaluation and she declined but is agreeable to going herself. Time spent in visit is a total of 25 mins with at least 50% of visit consisting of counseling and review of plan of care. [id number] Magali Gleason [facility] [address],[facility] [place] [address] 11/23/2021 16:35:11 11/23/2021 17:11:18 Vaginitis [id number] N76.0 Suspect BV & yeastWill treat for BV & yeastCall if sx's worsenIf swab was sent will be notified via portal unless otherwise indicated. Time spent in visit is a total of 15 mins with at least 50% of visit consisting of counseling and review of plan of care. [id number] Magali Gleason [facility] [address],[facility] [place] [address] 03/14/2022 17:01:44 03/15/2022 15:51:39 Urinary symptoms [id number] R39.9 Vaginitis 43163429 N76.0 Suspect yeastWill treat yeastCall if sx's worsenIf swab was sent will be notified via portal unless otherwise indicated. Counseling /Therapist resources given including psychology today.NatSent Time spent in visit is a total of 15 mins with at least 50% of visit consisting of counseling and review of plan of care. [id number] Magali Gleason [facility] [address] [address] 10/11/2022 11:18:54 10/11/2022 11:49:53 Dysuria 76823081 R30.0 Suspect UTISent cultureTre atedCounse led on medication R/B's, Most common side effects, & use. All questions were answered to patient satisfacti on. Gynecologi c examination [id number] Z01.419 Take Calcium with Vitamin D 1200mg [...] c Screen discussedC olon Screen naDexa Screen [facility] [place] [id number] Cristian Ruelas MD [facility] [address] [address] 02/14/2024 16:57:53 02/14/2024 17:33:10 Pain in pelvis 53041165 R10.2 [id number] Cristian Ruelsa MD [facility] [address] [address] 03/12/2024 15:30:34 03/13/2024 09:49:23 Pain in pelvis 33211834 R10.2 23-year-ol d female with multiple concerns. [...] hemorrhage and infection. Abnormal u terine bleeding [id number] 9100 N93.9 Sexually t ransmitted infectious disease 1352977 A64 [id number] Cristian Ruelas MD [facility] [address] [address] 04/09/2024 16:07:43 04/11/2024 14:25:38 Pain in pelvis 87685932 R10.2 this patient is a 23-year-ol d [...] Kelsey Member ID Guarantor Name 10/11/2022 1 [facility] ON OR AFTER 09/30/20 (MEDICAID REPLACEMENT - HMO) Mervat Werner [id number] Mervat E Werner 03/23/2023 1 [facility] ON OR AFTER 09/30/20 (MEDICAID REPLACEMENT - HMO) Mervat Werner [id number] Mervat E Werner 02/14/2024 1 [facility] ON OR AFTER 09/30/20 (MEDICAID REPLACEMENT - HMO) Mervat Werner [id number] Mervat E Werner 03/12/2024 1 [facility] ON OR AFTER 09/30/20 (MEDICAID REPLACEMENT - HMO) Mervat Werner [id number] Mervat E Werner 04/09/2024 1 *SELF PAY* In vivien Caldera Notes Date Note Type Note [...] age 40; Followed with yearly pap smears BRENDAN Barnard-ROYA [address], [place], [address], [facility] 10/11/2022 11:48:59 03/12/2024 text/html 23-year-old fema [...] infection. Cristian Ruelas MD [address], [place], [address], [facility] 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 Her main concern [...] infection. Cristian Ruelas MD [address], [place], [address], [facility] 04/10/2024 22:44:59 OBGyn Episode No OBEpisode recorded.
--- OUTSIDE RECORDS SUMMARY | 2024-09-07 15:31 | XMS_ITS | Encounter Summary ---
Author Organization [facility] Healthcare Address [address] [place] [address] Care Team Providers Care Convex Grinder Operator Name Role Phone Garrett Sanders MD Primary Care Provider [phone] Encounter Details Date Type Department Care Team (Late st Contact Info) Description 08/25/2024 Results Follow-Up [facility] [address] [place] [id number] [place] [address] 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 She can take either to 225 mcg every day or a 8 of the 200 mcg tablets once a week, or to take 200 mcg every day and 2 of the 200s once a week, which are all equivalent to 225 mcg daily I explained to the patient that the that your TSH and free T4 are normal on this dose, means that this is the right dose. The fluctuations thyroid levels are due to problems with compliance. And thatis the reason to try to do the just once a week, 8 tablets. She tells me that her calcium was low when she went to the emergency room. I have ordered a serum calcium, ionized calcium, PTH and vitamin-D levels and will advise on dosage of calcium, if necessary * Result Encounter Note - Liz Holt LPN - 08/26/2024 10:26 AM CDT Pt is aware of results. Pt stated that levels were done before she start taking the new dosing regimen. Pt states that since she started she feels horrible. Pt states that she had to go to the ER dueto new dosing regimen. Pt would like a callback. * Result Encounter Note - Socrates Contreras MD - 08/25/2024 9:39 PM CDT Let the pt know her thyroid levels look great. Continue with the plan of taking all levothyroxine, all tabs once a week documented in this encounter Plan of Treatment Not on file documented as of this encounter Visit Diagnoses Not on filedocumented in this encounter Care Teams Convex Grinder Operator Relationship Specialty Start Date End Date Garrett Sanders MD [address] [place] [address] [place] [id number] PCP - General Family Medicine 04/09/23 documented as of this encounter
--- OUTSIDE RECORDS SUMMARY | 2024-09-07 15:31 | XMS_ITS | Clinical Summary ---
Author Organization [facility] [employer] Address [address] [place] [address] Care Team Providers Care Telemarketing Sales Representative Name Role Phone Berkley De La Paz MD Primary Care Provider [phone] Berkley De La Paz MD Unavailable Source Comments [facility],non-owned Affiliates and Associated Physician Practices is amultiple site organization consisting of ambulatory clinics and hospital sitesin [place], [place], [place] and [place]. 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 MEDICAID - OUT OF [facility] Address: [facility] [id number] [place] [address] [facility] [employer] MEDICAID - [place] [facility] Care Teams Telemarketing Sales Representative Relationship Specialty Start Date End Date Berkley De La Paz MD [address] [place] [address] [address] [place] [address] PCP - General 04/11/18 Berkley De La Paz MD [address] [place] [address] Pediatrics 04/11/18
--- OUTSIDE RECORDS SUMMARY | 2024-09-07 15:31 | XMS_ITS | Referral Summary ---
Author Organization [facility] Address [address] [place] [address] Care Team Providers Care Executive Secretary Social Welfare Name Role Phone Garrett Sanders MD Primary Care Provider [phone] Encounters Date Type Department Care Team Description 09/01/2024 Results Follow-Up [facility] Family Medicine at [address] [address] Garrett Sanders MD Comprehensive metabolic panel, PTH, Calcium, ionized, Additional followed-up results: 2 09/01/2024 Telephone [facility] Family Medicine at [address] [address] Garrett Sanders MD Prior Auth (PA on Tramadol) 08/29/2024 9:30 AM CDT - 08/29/2024 11:59 PM CDT Hospital Encounter [address] [address] Vitamin D deficiency Discharge Disposition: Discharge to home or self care 08/29/2024 9:30 AM CDT Lab [facility] Outpatient Lab at [address] [address] 08/25/2024 Results [facility] [address] [address] Socrates Contreras MD TSH, T4, free 08/22/2024 Orders Only [facility] Family Medicine at [address] [place] [address] Garrett Sanders MD 08/20/2024 3:38 PM CDT - 08/20/2024 11:59 PM CDT Hospital Encounter [facility] [address] [place] [address] Post-surgical hypothyroidism Discharge Disposition: Discharge to home or self care 08/20/2024 3:45 PM CDT Lab [facility] Outpatient Lab at [address] [address] 08/20/2024 1:30 PM CDT Office Visit [facility] of [facility] [address] [place] [address] [address] [address] Socratse Contreras MD Post-surgical hypothyroidism 08/14/2024 Results Follow-Up [facility] Family Medicine at [address] [place] [address] Garrett Sanders MD XR Foot Left 3 or More Views 08/12/2024 4:45 PM CDT - 08/12/2024 11:59 PM CDT Hospital Encounter [facility] [address] [place] [address] Acute right ankle pain; Left foot pain; Shortness of breath Discharge Disposition: Discharge to home or self care 08/07/2024 Telephone [facility] Family Medicine at [address] [place] [address] Garrett Sanders MD PA for pregabalin 50 mg 08/05/2024 Telephone [facility] Family Medicine at [address] [place] [address] Garrett Sanders MD Prior Auth (PA on Pantoprazole) 08/05/2024 Telephone [facility] Family Medicine at [address] [place] [address] Garrett Sanders MD Medical Question/Miscellaneous; PEER TO PEER CT HEAD WITHOUT CONTRAST 08/04/2024 Telephone [facility] Family Medicine at [address] [place] [phone] Garrett Sanders MD Prior Auth (PA on Linzess) 07/29/2024 Telephone [facility] Family Medicine at [address] [place] [address] Garrett Sanders MD Prior Auth (PA on Pregabalin) 07/29/2024 Orders Only [facility] Family Medicine at [address] [address] Garrett Sanders MD 07/27/2024 Patient Message [facility] Medicine at [address] [address] Garrett Sanders MD Olanzapine treating my bipolar 07/25/2024 Results Follow-Up [facility] Family Medicine at [address] [address] Garrett Sanders MD Vitamin D 25 hydroxy, Rheumatoid factor, Erythrocyte sedimentation rate, CRP (acute phase) 07/25/2024 9:15 AM CDT Lab [address] [address] Chronic pain of multiple joints 07/24/2024 3:30 PM CDT Office Visit [facility] Family Medicine at [address] [address] Garrett Sanders MD Benign essential HTN (Primary Dx); Chronic pain of right ankle; Memory loss; Class 3 severe obesity due to excess calories with serious comorbidity and body mass index (BMI) of 40.0 to 44.9 in adult; Chronic pain of multiple joints 07/22/2024 Telephone [facility] at [address] [phone] Garrett Sanders MD 07/20/2024 Results Follow-Up [facility] Family Medicine at [address] [address] Garrett Sanders MD Celiac reflex panel, Tissue transglutaminase IgA (TGG-IgA Ab) 07/15/2024 Telephone [facility] at [address] [place] [phone] Garrett Sanders MD Test Results 07/15/2024 9:00 AM CDT Lab [facility] Lab [facility] [place] [address] Dyspepsia 07/10/2024 11:45 AM CDT Office Visit [facility] at [address] [place] [address] Garrett Sanders MD Chronic constipation (Primary Dx); Post-surgical hypothyroidism; Colitis 07/09/2024 Telephone [facility] at [address] [address] Garrett Sanders MD Appointment Request 07/08/2024 Telephone [facility] at [address] [place] [phone] Garrett Sanders MD 3rd no show letter sent 07/08/24 from Last 3 Months Allergies Active Allergy [...] 1 tablet (100 mg total) by mouth costume technician before breakfast 90 tablet 3 025 2025 [...] 1 capsule (290 mcg total) by mouth costume technician before breakfast 90 capsule 3 025 2025 [...] :Anxiety,Moderate episode of recurrent major depressive disorder ([facility]) Take 1 tablet (5 mg total) by mouth nightly 30 tablet 025 2024 Discontinued(R eorder) ARIPiprazole (ABILIFY) 5 mg tablet Take 1 tablet (5 mg total) by mouth daily 30 tablet 2 025 2024 Discontinued Active Problems Problem Noted Date Diagnosed Date Severe obesity 07/24/2024 Body mass index 40.0-44.9, adult ([facility]) 07/24 Memory loss 07/24/2024 Chronic constipation 07/10/2024 Overview (07/10/2024): Chronci. Uncontrolled with intermittent Rectal Bleeding. Already on lInzess and fiber supplements. Trial cipro/flagyl Acute pain of right knee 12/13/2023 Blepharitis of right upper eyelid 02/14/2023 Assessment & Plan (02/14/2023 2:58 PM RAFTSMAN): Warm compresses every 4-6 hours for 5-10 minutes Frequent handwashing, lid massage Doxycycline po 100 mg BID x 7 days. Sunscreen use advised. Topical erythromycin ER for worsening, pain, streaking redness, worsening swelling, vision impairment Upper respiratory tract infection 02/14/2023 Assessment & Plan (02/14/2023 2:59 PM RAFTSMAN): Rapid strep negative Rapid covid, flu negative [...] 5pm. Assessment & Plan (04/19/2023 12:26 PM RAFTSMAN): Recommended aggressive Lifestyle modification and weight loss [...] 08/30/2021 Assessment & Plan (03/12/2023 3:27 PM RAFTSMAN): Continue current levothyroxine dose. Will check thyroid function test and adjust levothyroxine dose accordingly. TSH goal lower normal Assessment & Plan (02/13/2022 2:37 PM RAFTSMAN): Continue current levothyroxine dose. Will check thyroid function test and adjust levothyroxine dose accordingly. 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 Biochemical evaluation with thyroid tumor markers. We will also obtain neck ultrasound for evaluation of the neck. If above are in acceptable range, will plan follow-up on yearly basis Assessment & Plan (02/13/2022 2:38 PM RAFTSMAN): No evidence of tumor recurrence on biochemical [...] Encounter for STD screening;Recorded Elsewhere: No Location: [facility] Source: EHR Chronic: N Practice ID: [id number] Billable Time: 01:15:00 PM Contraceptive management 04/23/2018 Overview (04/19/2023): Encounter for routine checking of intrauterine contraceptive device;Recorded Elsewhere: No Location: [facility] Source: EHR Chronic: N Practice ID: [id number] Billable Time: 09:45:00 AM Pelvic and perineal pain 02/27/2018 Overview (04/19/2023): Pelvic and perineal pain;Recorded Elsewhere: No Location: [facility] Source: EHR Chronic: N Practice ID: [id number] Billable Time: 11:00:00 AM Menstrual cycle disorder 05/19/2015 Overview (04/19/2023): Menometrorrhagia;Recorded Elsewhere: No Location: [facility] Source: EHR Chronic: N Practice ID: [id number] Billable Time: 10:30:00 AM Irregular menses 01/09/2015 Resolved Problems Problem Noted Date Diagnosed Date Resolved Date Abscess of left thigh 06/14/20222022 Hypoglycemia 02/13/2022 01/29/2023 Assessment & Plan (02/13/2022 2:39 PM RAFTSMAN): No documented low blood sugar Advised BG [...] on file 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 Gender Identity Not on file Sexual Orientation [...] ORDERABLES Final Resul t Performing Organization Address [facility] Co de Phone Number AYSE [address] [place] [address] * Calcium, ionized (08/29/2024 9:30 AM CDT) Calcium, Ionized 4.75 4.50 - 5.10 mg/dL Comment:Testing performed by : [facility], [address] [facility], [place]., [address] Blood 08/29/2024 9:30 AM CDT 08/29/2024 5:14 PM CDT us Socrates Contreras MD LAB BLOOD ORDERABLES Final Resul t Performing Organization Address [facility] Co de Phone Number CECILEE [address] [place] [address] * Vitamin D 25 hydroxy (08/29/2024 9:30 AM CDT) Vitamin D 25-OH 46 30 - 80 ng/mL Blood 08/29/2024 9:30 AM CDT 08/29/2024 2:09 PM CDT us Socrates Contreras MD LAB BLOOD ORDERABLES Final Resul t Performing Organization Address City/[facility] Co de Phone Number AYSE [address] [place] [address] * PTH (08/29/2024 9:30 AM CDT) PTH 20 15 - 65 pg/mL Blood 08/29/2024 9:30 AM CDT 08/29/2024 2:09 PM CDT us Socrates Contreras MD LAB BLOOD ORDERABLES Final Resul t Performing Organization Address City/[facility]/ZIP Co de Phone Number AYSE BLAKE [address] [place] [address] * Comprehensive metabolic panel (08/29/2024 9:30 AM [...] ORDERABLES Final Resul t Performing Organization Address City/[facility]/ZIP Co de Phone Number AYSE BLAKE [address] [place] [address] * Reflex thyroglobulin, tumor marker, IA, S (08/20/2024 3:38 PM CDT) Thyroglobulin, Tumor Marker 1.0 < or = 33 ng/mL [facility] Lab Thyroglobulin interp See Footnote AYSE BLAKE [...] testing methods are immunoenzymatic assays manufactured by [facility] and performed on the [employer]eli[employer] DXI 800. Values obtained from different assay methods or kits may be different and cannot be used interchangeably. The results cannot be interpreted as absolute evidence for the presence or absence of malignant disease. Test Performed by: [place] [address] Associate Account Executive: Horace León Ph.D.; CLIA# [id number] Blood 08/20/2024 3:38 PM CDT 08/20/2024 9:18 PM CDT us Socrates Contreras MD LAB BLOOD ORDERABLES Final Resul t AYSE BLAKE [address] Department [place] [address] [facility] * Thyroglobulin reflex to MS or IA (08/20/2024 3:38 PM CDT) Anti-thyroglobulin <1.8 <1.8 IUnits/mL [facility] Comment: Thyroglobulin Antibody < 1.8 IU/mL. Thyroglobulin performed by Immunoassay to follow. Test Performed by: [facility] [address] [place] [address] Associate Account Executive: Horace León Ph.D.; CLIA# [id number] Blood 08/20/2024 3:38 PM CDT 08/20/2024 9:18 PM CDT us Socrates Contreras MD LAB BLOOD ORDERABLES Final Resul t Performing Organization Address City/[facility] Co de Phone Number AYSE [address] [place] [address] [place] ref Lab * TSH (08/20/2024 3:38 PM CDT) Thyroid Stimulating Hormone 0.94 0.30 - 4.20 mcIUnit/mL Blood 08/20/2024 3:38 PM CDT 08/20/2024 9:18 PM CDT us Socrates Contreras MD LAB BLOOD ORDERABLES Final Resul t Performing Organization Address [facility] de Phone Number CECILEE [address] [place] [address] * T4, free (08/20/2024 3:38 PM CDT) Free T4 1.52 0.90 - 1.70 ng/dL Blood 08/20/2024 3:38 PM CDT 08/20/2024 9:18 PM CDT us Socrates Contreras MD LAB BLOOD ORDERABLES Final Resul t Performing Organization Address [facility] Co de Phone Number [facility] [address] [place], [place] [id number] * XR Foot Left 3 or More [...] by Arik Camacho M.D. T: Report ID: [id number] Reading Location: [id number] Procedure Note Arik Camacho MD - 08/13/2024 [...] signed by Arik OCONNOR T: Report ID: [id number] Reading Location: [place] [address] us Garrett Sanders MD IMG XR PROCEDURES [...] - Electronically signed by Arik Camacho M.D. ELVIN T: Report ID: [id number] Reading Location: [id number] Procedure Note Arik Camacho MD - 08/13/2024 [...] signed by Arik OCONNOR T: Report ID: [id number] Reading Location: [id number] us Garrett Sanders MD IMG XR PROCEDURES Final Result * XR Chest [...] Ryan Colin M.D. KH T: Report ID: [id number] Reading Location: [place] [address] Procedure Note Ryan Colin MD - 08/19/2024 [...] signed by Ryan CARMONA T: Report ID: [id number] Reading Location: [place] [address] Garrett Sanders MD IMG XR PROCEDURES Final [...] revised on 2019. Testing performed by: [facility], [address] [facility], [place]., [address] Blood 07/25/2024 9:30 AM CDT 07/25/2024 11:08 AM CDT us Garrett Sanders MD LAB BLOOD ORDERABLES Final Resul t Performing Organization Address City/[facility] Co de Phone Number [address] [place] [address] * Vitamin D 25 hydroxy (07/25/2024 9:30 AM CDT) Pathologist [facility] Vitamin D 25-OH 34.0 30.0 - 80.0 ng/mL Blood 07/25/2024 9:30 AM CDT 07/25/2024 9:46 AM CDT us Garrett Sanders MD LAB BLOOD ORDERABLES Final Resul t Performing Organization Address [facility] Co de Phone Number [address] [place] [address] * Erythrocyte sedimentation rate (07/25/2024 9:30 AM CDT) Pathologist [facility] Erythrocyte sedimentation rate 14 1 - 20 mm/hr Blood 07/25/2024 9:30 AM CDT 07/25/2024 9:46 AM CDT us Garrett Sanders MD LAB BLOOD ORDERABLES Final Resul t Performing Organization Address [facility] Co de Phone Number [address] [place] [address] * Rheumatoid factor (07/25/2024 9:30 AM CDT) Pathologist [facility] Rheumatoid factor, quant <10.0 <=15.0 IUnits/mL Blood 07/25/2024 9:30 AM CDT 07/25/2024 9:46 AM CDT Garrett Sanders MD LAB BLOOD ORDERABLES Final Resul t Performing Organization Address [facility] Co de Phone Number CECI[address] [place] [address] * CRP (acute phase) (07/25/2024 9:30 AM CDT) Pathologist [facility] CRP 3.4 <=10.0 mg/L Blood 07/25/2024 9:30 AM CDT 07/25/2024 9:46 AM CDT Garrett Sanders MD LAB BLOOD ORDERABLES Final Resul t Performing Organization Address [facility] de Phone Number [address] [address] * Celiac reflex panel (07/15/2024 8:58 AM CDT) [facility] IgA 201 61 - 356 mg/dL [place] ref Lab Celiac disease interpretation See Footnote AYSE Comment: See Comment: Negative serology. Celiac disease unlikely. However, approximately 10% of patients with celiac disease are seronegative. Also, patients who are already adhering to a gluten-free diet may be seronegative. If celiac disease is highly clinically suspected, consider HLA-DQ typing. Test Performed by: [facility] [address] [place] [address] Associate Account Executive: Horace León Ph.D.; CLIA# [id number] Blood 07/15/2024 8:58 AM CDT 07/15/2024 9:41 AM CDT us Garrett Sanders MD LAB BLOOD ORDERABLES Final Resul t Performing Organization Address [facility] Co de Phone Number [address] [address] [place] ref Lab * Tissue transglutaminase IgA (TGG-IgA Ab) (07/15/2024 8:58 AM CDT) [facility] TTG ab, IgA <1.2 <4.0 (Negative) units/mL Comment: Test Performed by: [facility] [address] [place] [address] Associate Account Executive: Horace León Ph.D.; CLIA# [id number] Interpretive data Negative: <15 units/mL Positive: > or equal to 15 units/mL Current interpretive data was last revised on 2016. Testing performed by: [facility], [address] [place]., [address] Blood 07/15/2024 8:58 AM CDT 07/15/2024 9:41 AM CDT us Garrett Sanders MD LAB BLOOD ORDERABLES Final Resul t Performing Organization Address City/[facility]/ZIP Co de Phone Number [facility] [address] [facility] Department [place] [address] * N. gonorrhoeae/C. trachomatis Amplification Urine (06/13/2022 3:09 PM CDT) [facility] C. trachomatis Not Detected Not Detected [facility] Comment:Testing performed by : [facility], [address] [place] [address]., [address] N. gonorrhoeae Not Detected Not Detected [facility] Comment: Interpretive Data Testing performed by the [facility]. This assay detects Chlamydia trachomatis and Neisseria gonorrhoeae by nucleic acid amplification testing (NAAT). This test is approved by the [facility] Food and Drug Administration and the performance characteristics have been verified by the laboratory. The performance characteristics of this test have not been evaluated in individuals less than 14 years of age. Current Interpretive Data was last revised on 2019. Testing performed by: [facility], [address] [place] [address]., [address] Urine (None) 06/13/2022 3:09 PM CDT 06/13/2022 4:09 PM CDT us Maria Teresa OLIVA LAB MICROBIOLOGY - GENERAL ORDER SADIA Final Result AYSE [address] [facility] [place] [address] * Hepatitis panel, acute (02/01/2022 7:53 PM CDT) Hep A IgM Nonreactive Nonreactive AYSE Comment: Interpretive Data: If Hep A IgM Ab is reported as Equivocal, a new sample should be drawn in two weeks for testing. Current interpretive data was last revised on 19. Hep B core IgM Nonreactive Nonreactive [facility] Comment: Interpretive Data If HepB Core IgM Ab is reported as Equivocal, a new sample should be drawn in two weeks for testing. Current interpretive data was last revised on 19. Hep C Ab Nonreactive [facility]reactive [facility] Comment: Interpretive Data Nonreactive: Antibodies to [...] last revised on 2019. HepBsAg Nonreactive Nonreactive [facility] Blood 02/01/2022 7:53 PM CDT 02/01/2022 11:28 PM CDT Liz Tucker DO LAB MICROBIOLOGY - GENERAL LELA MIRANDA Final Result Performing Organization Address [facility] Co de Phone Number [address] [place] [address] from Last 3 Months or Most Recently Relevant to Health Maintenance Insurance [facility] Care Teams Executive Secretary Social Welfare Relationship Specialty Start Date End Date Garrett Sanders MD [address] [place] [address] PCP - General Family Medicine 04/09/23
--- OUTSIDE RECORDS SUMMARY | 2024-09-07 16:08 | XMS_ITS | Encounter Summary ---
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
--- OUTSIDE RECORDS SUMMARY | 2024-09-07 16:08 | XMS_ITS | Clinical Summary ---
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 Gender Identity Not on file Sexual Orientation [...] 12/30/2002, 05/08/2001, 03/12/2001, Additional history exists Insurance [facility] MEDICA[facility] MED[facility] Advance Directives For more information, please contact: [phone] * Default Full Code - Needs Discussion (Latest Code Status on File) Date Activated Date Inactivated Comments 09/04/2021 8:56 AM 09/04/2021 2:27 PM * Full Code Date Activated Date Inactivated Comments 05/13/2018 1:26 PM 05/14/2018 11:46 AM Care Teams Warehouse Selector Relationship Specialty Start Date End Date Giancarlo Yeh MD PCP - General Family Practice 09/03/21
--- OUTSIDE RECORDS SUMMARY | 2024-09-07 16:08 | XMS_ITS | Encounter Summary ---
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
--- OUTSIDE RECORDS SUMMARY | 2024-09-07 16:08 | XMS_ITS | Referral Summary ---
Author Organization [facility] Address [address] [place] [address] Care Team Providers Care Post Doctoral Fellow Name Role Phone Garrett Sanders MD Primary Care Provider [phone] Encounters Date Type Department Care Team Description 09/01/2024 Results Follow-Up [facility] Family Medicine at [address] [address] Garrett Sanders MD Comprehensive metabolic panel, PTH, Calcium, ionized, Additional followed-up results: 2 09/01/2024 Telephone [facility] Family Medicine at [address] [address] Garrett Sanders MD Prior Auth (PA on Tramadol) 08/29/2024 9:30 AM CDT - 08/29/2024 11:59 PM CDT Hospital Encounter [address] [address] Vitamin D deficiency Discharge Disposition: Discharge to home or self care 08/29/2024 9:30 AM CDT Lab [facility] Outpatient Lab at [address] [address] 08/25/2024 Results Follow-Up [facility] Specialists of [address] [address] Socrates Contreras MD TSH, T4, free 08/22/2024 Orders Only [facility] Family Medicine at [address] [place] [address] Garrett Sanders MD 08/20/2024 3:38 PM CDT - 08/20/2024 11:59 PM CDT Hospital Encounter [facility] [address] [place] [address] Post-surgical hypothyroidism Discharge Disposition: Discharge to home or self care 08/20/2024 3:45 PM CDT Lab [facility] Outpatient Lab at [address] [address] 08/20/2024 1:30 PM CDT Office Visit [facility] Specialists of [facility] [id number] [place] [address] [address], [place] [address] Socrates Contreras MD Post-surgical hypothyroidism 08/14/2024 Results Follow-Up [facility] Family Medicine at [address] [place] [address] Garrett Sanders MD XR Foot Left 3 or More Views 08/12/2024 4:45 PM CDT - 08/12/2024 11:59 PM CDT Hospital Encounter [facility] [address] [place] [address] Acute right ankle pain; Left foot pain; Shortness of breath Discharge Disposition: Discharge to home or self care 08/07/2024 Telephone [facility] Family Medicine at [address] [place] [address] Garrett Sanders MD PA for pregabalin 50 mg 08/05/2024 Telephone [facility] Family Medicine at [address] [place] [address] Garrett Sanders MD Prior Auth (PA on Pantoprazole) 08/05/2024 Telephone [facility] Family Medicine at [address] [place] [address] Garrett Sanders MD Medical Question/Miscellaneous; PEER TO PEER CT HEAD WITHOUT CONTRAST 08/04/2024 Telephone [facility] Family Medicine at [address] [place] [address] Garrett Sanders MD Prior Auth (PA on Linzess) 07/29/2024 Telephone [facility] Family Medicine at [address] [place] [address] Garrett Sanders MD Prior Auth (PA on Pregabalin) 07/29/2024 Orders Only [facility] Family Medicine at [address] [address] Garrett Sanders MD 07/27/2024 Patient Message [facility] Family Medicine at [address] [address] Garrett Sanders MD Olanzapine treating my bipolar 07/25/2024 Results Follow-Up [facility] Family Medicine at [address] [address] Garrett Sanders MD Vitamin D 25 hydroxy, Rheumatoid factor, Erythrocyte sedimentation rate, CRP (acute phase) 07/25/2024 9:15 AM CDT Lab [address] [address] Chronic pain of multiple joints 07/24/2024 3:30 PM CDT Office Visit [facility] Family Medicine at [address] [address] Garrett Sanders MD Benign essential HTN (Primary Dx); Chronic pain of right ankle; Memory loss; Class 3 severe obesity due to excess calories with serious comorbidity and body mass index (BMI) of 40.0 to 44.9 in adult; Chronic pain of multiple joints 07/22/2024 Telephone [facility] at [address] [address] Garrett Sanders MD 07/20/2024 Results Follow-Up [facility] Family Medicine at [address] [address] Garrett Sanders MD Celiac reflex panel, Tissue transglutaminase IgA (TGG-IgA Ab) 07/15/[address] [facility] at [address] [place] [address] Garrett Sanders MD Test Results 07/15/2024 9:00 AM CDT Lab [facility] Lab [facility] [place] [address] Dyspepsia 07/10/2024 11:45 AM CDT Office Visit [facility] at [address] [place] [address] Garrett Sanders MD Chronic constipation (Primary Dx); Post-surgical hypothyroidism; Colitis 07/09/[address] [facility] at [address] [address] Garrett Sanders MD Appointment Request 07/08/[address] [facility] at [address] [place] [address] Garrett Sanders MD 3rd no show letter [...] 1 tablet (100 mg total) by mouth early childhood teacher assistant before breakfast 90 tablet 3 025 2025 [...] 1 capsule (290 mcg total) by mouth early childhood teacher assistant before breakfast 90 capsule 3 025 2025 [...] :Anxiety,Moderate episode of recurrent major depressive disorder ([facility]) Take 1 tablet (5 mg total) by mouth nightly 30 tablet 025 2024 Discontinued(R eorder) ARIPiprazole (ABILIFY) 5 mg tablet Take 1 tablet (5 mg total) by mouth daily 30 tablet 2 025 2024 Discontinued Active Problems Problem Noted Date Diagnosed Date Severe obesity 07/24/2024 Body mass index 40.0-44.9, adult ([facility]) 07/24 Memory loss 07/24/2024 Chronic constipation 07/10/2024 Overview (07/10/2024): Chronci. Uncontrolled with intermittent Rectal Bleeding. Already on lInzess and fiber supplements. Trial cipro/flagyl Acute pain of right knee 12/13/2023 Blepharitis of right upper eyelid 02/14/2023 Assessment & Plan (02/14/2023 2:58 PM APPLE SOLUTIONS CONSULTANT): Warm compresses every 4-6 hours for 5-10 minutes Frequent handwashing, lid massage Doxycycline po 100 mg BID x 7 days. Sunscreen use advised. Topical erythromycin ER for worsening, pain, streaking redness, worsening swelling, vision impairment Upper respiratory tract infection 02/14/2023 Assessment & Plan (02/14/2023 2:59 PM APPLE SOLUTIONS CONSULTANT): Rapid strep negative Rapid covid, flu negative [...] 5pm. Assessment & Plan (04/19/2023 12:26 PM APPLE SOLUTIONS CONSULTANT): Recommended aggressive Lifestyle modification and weight loss [...] 08/30/2021 Assessment & Plan (03/12/2023 3:27 PM APPLE SOLUTIONS CONSULTANT): Continue current levothyroxine dose. Will check thyroid function test and adjust levothyroxine dose accordingly. TSH goal lower normal Assessment & Plan (02/13/2022 2:37 PM APPLE SOLUTIONS CONSULTANT): Continue current levothyroxine dose. Will check thyroid function test and adjust levothyroxine dose accordingly. 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 Biochemical evaluation with thyroid tumor markers. We will also obtain neck ultrasound for evaluation of the neck. If above are in acceptable range, will plan follow-up on yearly basis Assessment & Plan (02/13/2022 2:38 PM APPLE SOLUTIONS CONSULTANT): No evidence of tumor recurrence on biochemical [...] Encounter for STD screening;Recorded Elsewhere: No Location: [facility] Source: EHR Chronic: N Practice ID: [id number] Billable Time: 01:15:00 PM Contraceptive management 04/23/2018 Overview (04/19/2023): Encounter for routine checking of intrauterine contraceptive device;Recorded Elsewhere: No Location: [facility] Source: EHR Chronic: N Practice ID: [id number] Billable Time: 09:45:00 AM Pelvic and perineal pain 02/27/2018 Overview (04/19/2023): Pelvic and perineal pain;Recorded Elsewhere: No Location: [facility] Source: EHR Chronic: N Practice ID: [id number] Billable Time: 11:00:00 AM Menstrual cycle disorder 05/19/2015 Overview (04/19/2023): Menometrorrhagia;Recorded Elsewhere: No Location: [facility] Source: EHR Chronic: N Practice ID: [id number] Billable Time: 10:30:00 AM Irregular menses 01/09/2015 Resolved Problems Problem Noted Date Diagnosed Date Resolved Date Abscess of left thigh 06/14/20222022 Hypoglycemia 02/13/2022 01/29/2023 Assessment & Plan (02/13/2022 2:39 PM APPLE SOLUTIONS CONSULTANT): No documented low blood sugar Advised BG [...] on file Legal Sex Female 5:33 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, [address] [facility], [place]., [address] Blood 08/29/2024 9:30 AM CDT 08/29/2024 5:14 PM CDT us Socrates Contreras MD LAB BLOOD ORDERABLES Final Resul t Performing Organization Address [facility] Co de Phone Number CECILEE [address] [place] [address] * Vitamin D 25 hydroxy (08/29/2024 9:30 AM CDT) Vitamin D 25-OH 46 30 - 80 ng/mL Blood 08/29/2024 9:30 AM CDT 08/29/2024 2:09 PM CDT us Socrates Contreras MD LAB BLOOD ORDERABLES Final Resul t Performing Organization Address [facility] Co de Phone Number AYSE [address] [place] [address] * PTH (08/29/2024 9:30 AM CDT) PTH 20 15 - 65 pg/mL Blood 08/29/2024 9:30 AM CDT 08/29/2024 2:09 PM CDT us Socrates Contreras MD LAB BLOOD ORDERABLES Final Resul t Performing Organization Address [facility]/ZIP Co de Phone Number AYSE BLAKE [address] [place] [address] * Comprehensive metabolic panel (08/29/2024 9:30 AM [...] ORDERABLES Final Resul t Performing Organization Address [facility]/ZIP Co de Phone Number AYSE BLAKE [address] [place] [address] * Reflex thyroglobulin, tumor marker, IA, S (08/20/2024 3:38 PM CDT) Thyroglobulin, Tumor Marker 1.0 < or = 33 ng/mL [facility] Lab Thyroglobulin interp See Footnote AYSE [...] testing methods are immunoenzymatic assays manufactured by [employer] and performed on the Powerphotonic DXI 800. Values obtained from different assay methods or kits may be different and cannot be used interchangeably. The results cannot be interpreted as absolute evidence for the presence or absence of malignant disease. Test Performed by: [place] [address] Vineyardist: Horace León Ph.D.; CLIA# [id number] Blood 08/20/2024 3:38 PM CDT 08/20/2024 9:18 PM CDT us Socrates Contreras MD LAB BLOOD ORDERABLES Final Resul t AYSE BLAKE [address] [place] [address] [facility] * Thyroglobulin reflex to MS or IA (08/20/2024 3:38 PM CDT) Anti-thyroglobulin <1.8 <1.8 IUnits/mL [facility] Comment: Thyroglobulin Antibody < 1.8 IU/mL. Thyroglobulin performed by Immunoassay to follow. Test Performed by: [facility] [address] [place] [address] Vineyardist: Horace León Ph.D.; CLIA# [id number] Blood 08/20/2024 3:38 PM CDT 08/20/2024 9:18 PM CDT us Socrates Contreras MD LAB BLOOD ORDERABLES Final Resul t Performing Organization Address [facility] Co de Phone Number AYSE [address] [place] [address] [place] ref Lab * TSH (08/20/2024 3:38 PM CDT) Thyroid Stimulating Hormone 0.94 0.30 - 4.20 mcIUnit/mL Blood 08/20/2024 3:38 PM CDT 08/20/2024 9:18 PM CDT us Socrates Contreras MD LAB BLOOD ORDERABLES Final Resul t Performing Organization Address [facility] de Phone Number CECILEE [address] [place] [address] * T4, free (08/20/2024 3:38 PM CDT) Free T4 1.52 0.90 - 1.70 ng/dL Blood 08/20/2024 3:38 PM CDT 08/20/2024 9:18 PM CDT us Socrates Contreras MD LAB BLOOD ORDERABLES Final Resul t Performing Organization Address [facility] Co de Phone Number [facility] [address] [address] [employer] [place], [place] [id number] * XR Foot Left 3 or More [...] by Arik Camacho M.D. T: Report ID: [id number] Reading Location: [id number] Procedure Note Arik Camacho MD - 08/13/2024 [...] signed by Arik OCONNOR T: Report ID: [id number] Reading Location: [place] [address] us Garrett Sanders MD IMG XR PROCEDURES [...] Arik Camacho M.D. ELVIN T: Report ID: [id number] Reading Location: [id number] Procedure Note Arik Camacho MD - 08/13/2024 [...] signed by Arik OCONNOR T: Report ID: [id number] Reading Location: [id number] us Garrett Sanders MD IMG XR PROCEDURES [...] Ryan Colin M.D. KH T: Report ID: [id number] Reading Location: [place] [address] Procedure Note Ryan Colin MD - 08/19/2024 [...] signed by Ryan CARMONA T: Report ID: [id number] Reading Location: [place] [address] Garrett Sanders MD IMG XR PROCEDURES Final [...] revised on 2019. Testing performed by: [facility], [address] [facility], [place]., [address] Blood 07/25/2024 9:30 AM CDT 07/25/2024 11:08 AM CDT us Garrett Sanders MD LAB BLOOD ORDERABLES Final Resul t Performing Organization Address [facility] Co de Phone Number [address] [place] [address] * Vitamin D 25 hydroxy (07/25/2024 9:30 AM CDT) Pathologist [facility] Vitamin D 25-OH 34.0 30.0 - 80.0 ng/mL Blood 07/25/2024 9:30 AM CDT 07/25/2024 9:46 AM CDT us Garrett Sanders MD LAB BLOOD ORDERABLES Final Resul t Performing Organization Address [facility] Co de Phone Number [address] [place] [address] * Erythrocyte sedimentation rate (07/25/2024 9:30 AM CDT) Pathologist [facility] Erythrocyte sedimentation rate 14 1 - 20 mm/hr Blood 07/25/2024 9:30 AM CDT 07/25/2024 9:46 AM CDT us Garrett Sanders MD LAB BLOOD ORDERABLES Final Resul t Performing Organization Address [facility] Co de Phone Number [address] [place] [address] * Rheumatoid factor (07/25/2024 9:30 AM CDT) Pathologist [facility] Rheumatoid factor, quant <10.0 <=15.0 IUnits/mL Blood 07/25/2024 9:30 AM CDT 07/25/2024 9:46 AM CDT Garrett Sanders MD LAB BLOOD ORDERABLES Final Resul t Performing Organization Address [facility] Co de Phone Number [address] [place] [address] * CRP (acute phase) (07/25/2024 9:30 AM CDT) Pathologist [facility] CRP 3.4 <=10.0 mg/L Blood 07/25/2024 9:30 AM CDT 07/25/2024 9:46 AM CDT Garrett Sanders MD LAB BLOOD ORDERABLES Final Resul t Performing Organization Address [facility] de Phone Number [address] [address] * Celiac reflex panel (07/15/2024 8:58 AM CDT) [facility] IgA 201 61 - 356 mg/dL [place] ref Lab Celiac disease interpretation See Footnote AYSE Comment: See Comment: Negative serology. Celiac disease unlikely. However, approximately 10% of patients with celiac disease are seronegative. Also, patients who are already adhering to a gluten-free diet may be seronegative. If celiac disease is highly clinically suspected, consider HLA-DQ typing. Test Performed by: [facility] [address] [place] [address] Vineyardist: Horace León Ph.D.; CLIA# [id number] Blood 07/15/2024 8:58 AM CDT 07/15/2024 9:41 AM CDT us Garrett Sanders MD LAB BLOOD ORDERABLES Final Resul t Performing Organization Address [facility] Co de Phone Number [address] [address] [place] ref Lab * Tissue transglutaminase IgA (TGG-IgA Ab) (07/15/2024 8:58 AM CDT) [facility] TTG ab, IgA <1.2 <4.0 (Negative) units/mL Comment: Test Performed by: [facility] [address] [place] [address] Vineyardist: Horace León Ph.D.; CLIA# [id number] Interpretive data Negative: <15 units/mL Positive: > or equal to 15 units/mL Current interpretive data was last revised on 2016. Testing performed by: [facility], [address] [place]., [address] Blood 07/15/2024 8:58 AM CDT 07/15/2024 9:41 AM CDT us Garrett Sanders MD LAB BLOOD ORDERABLES Final Resul t Performing Organization Address [facility]/ZIP Co de Phone Number [facility] [address] [facility] Department [place] [address] * N. gonorrhoeae/C. trachomatis Amplification Urine (06/13/2022 3:09 PM CDT) [facility] C. trachomatis Not Detected Not Detected [facility] Comment:Testing performed by : [facility], [address] [place] [address]., [address] N. gonorrhoeae Not Detected Not Detected [facility] Comment: Interpretive Data Testing performed by the [facility]. This assay detects Chlamydia trachomatis and Neisseria gonorrhoeae by nucleic acid amplification testing (NAAT). This test is approved by the [facility] Food and Drug Administration and the performance characteristics have been verified by the laboratory. The performance characteristics of this test have not been evaluated in individuals less than 14 years of age. Current Interpretive Data was last revised on 2019. Testing performed by: [facility], [address] [place] [address]., [address] Urine (None) 06/13/2022 3:09 PM CDT 06/13/2022 4:09 PM CDT us Maria Teresa OLIVA LAB MICROBIOLOGY - GENERAL ORDER SADIA Final Result AYSE [address] [facility] [place] [address] * Hepatitis panel, acute (02/01/2022 7:53 PM CDT) Hep A IgM Nonreactive Nonreactive AYSE Comment: Interpretive Data: If Hep A IgM Ab is reported as Equivocal, a new sample should be drawn in two weeks for testing. Current interpretive data was last revised on 19. Hep B core IgM Nonreactive Nonreactive [facility] Comment: Interpretive Data If HepB Core IgM Ab is reported as Equivocal, a new sample should be drawn in two weeks for testing. Current interpretive data was last revised on 19. Hep C Ab Nonreactive Nonreactive [facility] Comment: Interpretive Data Nonreactive: Antibodies to [...] last revised on 2019. HepBsAg Nonreactive Nonreactive [facility] Blood 02/01/2022 7:53 PM CDT 02/01/2022 11:28 PM CDT Liz Tucker DO LAB MICROBIOLOGY - GENERAL LELA MIRANDA Final Result Performing Organization Address [facility] Co de Phone Number [address] [place] [address] from Last 3 Months or Most Recently Relevant to Health Maintenance Insurance [facility] Care Teams Post Doctoral Fellow Relationship Specialty Start Date End Date Garrett Sanders MD [address] [facility] [facility] [place] [address] PCP - General Family Medicine 04/09/23
--- OUTSIDE RECORDS SUMMARY | 2024-09-07 16:09 | XMS_ITS | Encounter Summary ---
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
--- OUTSIDE RECORDS SUMMARY | 2024-09-07 16:09 | XMS_ITS | Clinical Summary ---
Author Organization [facility] [employer] Address [address] [place] [address] Care Team Providers Care Pantry Goods Maker Name Role Phone Berkley De La Paz MD Primary Care Provider [phone] Berkley De La Paz MD Unavailable [phone] Source Comments [facility],non-owned Affiliates and Associated Physician Practices is amultiple site organization consisting of ambulatory clinics and hospital sitesin [place], [place], [place] and [place]. This disclosure is being madepursuant to the Care Everywhere program and may not contain all information available regarding this patient. 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
--- OUTSIDE RECORDS SUMMARY | 2024-09-07 16:09 | XMS_ITS | Encounter Summary ---
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 Gender Identity Not on file Sexual Orientation Not on file documented as of this encounter Plan of Treatment Not on file documented as of this encounter Visit Diagnoses Not on filedocumented in this encounter Additional Health Concerns Infection Onset Date Last Indicated Resolved Time COVID: Suspected 02/14/2023 02/14/2023 02/14/2023 2:34 PM MAINTENANCE MECHANIC COVID: Suspected 04/09/2023 04/09/2023 04/09/2023 11:05 PM MAINTENANCE MECHANIC documented as of this encounter Care Teams Field Nurse Relationship Specialty Start Date End Date Samantha Olsen PA PCP - General Family Medicine 12/13/21 01/28/23 Fatuma Theodore NP [address] [facility] [address] [place] [address] PCP - General Family Medicine 01/29/23 04/08/23 Garrett Sanders MD [address] [facility] [address] [place] [id number] PCP - General Family Medicine 04/09/23 documented as of this encounter
--- OUTSIDE RECORDS SUMMARY | 2024-09-07 16:09 | XMS_ITS | Clinical Summary ---
Author Organization [facility] Address [address] [place] [address] Care Team Providers Care Economic Historian Name Role Phone Garrett Sanders MD Primary Care Provider [phone] Allergies Active Allergy Reactions Criticality Noted Date [...] 1 tablet (100 mg total) by mouth compliance project manager before breakfast 90 tablet 3 025 2025 [...] 1 capsule (290 mcg total) by mouth compliance project manager before breakfast 90 capsule 3 025 2025 [...] 02/14/2023 Assessment & Plan (02/14/2023 2:58 PM ELECTRONIC DEVICE REPAIRER): Warm compresses every 4-6 hours for 5-10 minutes Frequent handwashing, lid massage Doxycycline po 100 mg BID x 7 days. Sunscreen use advised. Topical erythromycin ER for worsening, pain, streaking redness, worsening swelling, vision impairment Upper respiratory tract infection 02/14/2023 Assessment & Plan (02/14/2023 2:59 PM ELECTRONIC DEVICE REPAIRER): Rapid strep negative Rapid covid, flu negative [...] 5pm. Assessment & Plan (04/19/2023 12:26 PM ELECTRONIC DEVICE REPAIRER): Recommended aggressive Lifestyle modification and weight loss [...] 08/30/2021 Assessment & Plan (03/12/2023 3:27 PM ELECTRONIC DEVICE REPAIRER): Continue current levothyroxine dose. Will check thyroid function test and adjust levothyroxine dose accordingly. TSH goal lower normal Assessment & Plan (02/13/2022 2:37 PM ELECTRONIC DEVICE REPAIRER): Continue current levothyroxine dose. Will check thyroid function test and adjust levothyroxine dose accordingly. 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 Biochemical evaluation with thyroid tumor markers. We will also obtain neck ultrasound for evaluation of the neck. If above are in acceptable range, will plan follow-up on yearly basis Assessment & Plan (02/13/2022 2:38 PM ELECTRONIC DEVICE REPAIRER): No evidence of tumor recurrence on biochemical [...] Encounter for STD screening;Recorded Elsewhere: No Location: [facility] Source: EHR Chronic: N Practice ID: [id number] Billable Time: 01:15:00 PM Contraceptive management 04/23/2018 Overview (04/19/2023): Encounter for routine checking of intrauterine contraceptive device;Recorded Elsewhere: No Location: [facility] Source: EHR Chronic: N Practice ID: 0001 Billable Time: 09:45:00 AM Pelvic and perineal pain 02/27/2018 Overview (04/19/2023): Pelvic and perineal pain;Recorded Elsewhere: No Location: [facility] Source: EHR Chronic: N Practice ID: 0001 Billable Time: 11:00:00 AM Menstrual cycle disorder 05/19/2015 Overview (04/19/2023): Menometrorrhagia;Recorded Elsewhere: No Location: [facility] Source: EHR Chronic: N Practice ID: 0001 Billable Time: 10:30:00 AM Irregular menses 01/09/2015 Resolved Problems Problem Noted Date Diagnosed Date Resolved Date Abscess of left thigh 06/14/20222022 Hypoglycemia 02/13/2022 01/29/2023 Assessment & Plan (02/13/2022 2:39 PM ELECTRONIC DEVICE REPAIRER): No documented low blood sugar Advised BG monitoring with symptoms to establish correlation & inform further work up Positive FLORENCIO (antinuclear antibody) 10/14/2021 01/29/2023 Rash 09/20/2021 01/29/2023 Sore throat 09/20/2021 01/29/2023 Infectious mononucleosis without complication 09/05/19 22 01/29/2023 Leg mass, left 09/09/2018 01/29/2023 Encounters Date Type Department Care Team Description 09/01/2024 Results Follow-Up [facility] Family Medicine at [address] [address] Garrett Sanders MD Comprehensive metabolic panel, PTH, Calcium, ionized, Additional followed-up results: 2 09/01/2024 Telephone [facility] Medical [facility] Family Medicine at [address] [phone] Garrett Sanders MD Prior Auth (PA on Tramadol) 08/29/2024 9:30 AM CDT - 08/29/2024 11:59 PM CDT Hospital Encounter [address] [address] Vitamin D deficiency Discharge Disposition: Discharge to home or self care 08/29/2024 9:30 AM CDT Lab [facility] Outpatient Lab at [address] [address] 08/25/2024 Results Follow-Up [facility] [id number] [place] [phone] Socrates Contreras MD TSH, T4, free 08/22/2024 Orders Only [facility] Family Medicine at [address] [address] Garrett Sanders MD 08/20/2024 3:45 PM CDT Lab [facility] Outpatient Lab at [address] [address] 08/20/2024 3:38 PM CDT - 08/20/2024 11:59 PM CDT Hospital Encounter [facility] [address] [place] [address] Post-surgical hypothyroidism Discharge Disposition: Discharge to home or self care 08/20/2024 1:30 PM CDT Office Visit [facility] [address] [facility] [address] [place] [address] Socrates Contreras MD Post-surgical hypothyroidism 08/14/2024 Results Follow-Up [facility] Medical [facility] Family Medicine at [address] [address] Garrett Sanders MD XR Foot Left 3 or More Views 08/12/2024 4:45 PM CDT - 08/12/2024 11:59 PM CDT Hospital Encounter [facility] Diagnostic Imaging [facility] [place] [address] Acute right ankle pain; Left foot pain; Shortness of breath Discharge Disposition: Discharge to home or self care 08/07/2024 Telephone [facility] Medical [facility] Family Medicine at [address] [address] Garrett Sanders MD PA for pregabalin 50 mg 08/05/2024 Telephone [facility] Family Medicine at [address] [place] [address] Garrett Sanders MD Prior Auth (PA on Pantoprazole) 08/05/2024 Telephone [facility] Family Medicine at [address] [place] [phone] Garrett Sanders MD Medical Question/Miscellaneous; PEER TO PEER CT HEAD WITHOUT CONTRAST 08/04/2024 Telephone [facility] Family Medicine at [address] [place] [phone] Garrett Sanders MD Prior Auth (PA on Linzess) 07/29/2024 Telephone [facility] Family Medicine at [address] [place] [phone] Garrett Sanders MD Prior Auth (PA on Pregabalin) 07/29/2024 Orders Only [facility] Family Medicine at [address] [address] Garrett Sanders MD 07/27/2024 Patient Message [facility] Family Medicine at [address] [phone] Garrett Sanders MD Olanzapine treating my bipolar 07/25/2024 9:15 AM CDT Lab [address] [address] Chronic pain of multiple joints 07/25/2024 Results Follow-Up [facility] Family Medicine at [address] [address] Garrett Sanders MD Vitamin D 25 hydroxy, Rheumatoid factor, Erythrocyte sedimentation rate, CRP (acute phase) 07/24/2024 3:30 PM CDT Office Visit [facility] Family Medicine at [address] [phone] Garrett Sanders MD Benign essential HTN (Primary Dx); Chronic pain of right ankle; Memory loss; Class 3 severe obesity due to excess calories with serious comorbidity and body mass index (BMI) of 40.0 to 44.9 in adult; Chronic pain of multiple joints 07/22/2024 Telephone [facility] Care at [address] [phone] Garrett Sanders MD 07/20/2024 Results Follow-Up [facility] Family Medicine at [address] [address] Garrett Sanders MD Celiac reflex panel, Tissue transglutaminase IgA (TGG-IgA Ab) 07/15/2024 9:00 AM CDT Lab [facility] Lab [address] [place] [address] Dyspepsia 07/15/2024 Telephone [facility] Family Medicine at [address] [place] [phone] Garrett Sanders MD Test Results 07/10/2024 11:45 AM CDT Office Visit [facility] Family Medicine at [address] [place] [phone] Garrett Sanders MD Chronic constipation (Primary Dx); Post-surgical hypothyroidism; Colitis 07/09/2024 Telephone [facility] Medicine at [address] [place] [phone] Garrett Sanders MD Appointment Request 07/08/2024 Telephone [facility] Medicine at [address] [place] [phone] Garrett Sanders MD 3rd no show letter [...] on file Legal Sex Female 5:33 AM ELECTRONIC DEVICE REPAIRER Gender Identity Not on file Sexual [...] Resul t Performing Organization Address [facility] Co de Phone Number AYSE BLAKE [address] Department [place] [address] * Calcium, ionized (08/29/2024 9:30 AM CDT) Calcium, Ionized 4.75 4.50 - 5.10 mg/dL Comment:Testing performed by : [facility], [address] [place]., [address] Blood 08/29/2024 9:30 AM CDT 08/29/2024 5:14 PM CDT us Socrates Contreras MD LAB BLOOD ORDERABLES Final Resul t Performing Organization Address [facility] Co de Phone Number CECILEE BLAKE [address] Department [place] [address] * Vitamin D 25 hydroxy (08/29/2024 9:30 AM CDT) Vitamin D 25-OH 46 30 - 80 ng/mL Blood 08/29/2024 9:30 AM CDT 08/29/2024 2:09 PM CDT us Socrates Contreras MD LAB BLOOD ORDERABLES Final Resul t Performing Organization Address [facility] de Phone Number AYSE [address] [address] Department [place] [address] * PTH (08/29/2024 9:30 AM CDT) PTH 20 15 - 65 pg/mL Blood 08/29/2024 9:30 AM CDT 08/29/2024 2:09 PM CDT Socrates Contreras MD LAB BLOOD ORDERABLES Final Resul t AYSE BLAKE [address] [place] [address] * Comprehensive metabolic panel (08/29/2024 9:30 AM [...] BLOOD ORDERABLES Final Resul t AYSE BLAKE [address] Department [place] [address] * Reflex thyroglobulin, tumor marker, IA, S (08/20/2024 3:38 PM CDT) Thyroglobulin, Tumor Marker 1.0 < or = 33 ng/mL [facility] Thyroglobulin interp See Footnote AYSE [...] testing methods are immunoenzymatic assays manufactured by [employer] and performed on the [employer] DXI 800. Values obtained from different assay methods or kits may be different and cannot be used interchangeably. The results cannot be interpreted as absolute evidence for the presence or absence of malignant disease. Test Performed by: [place] [id number] Associate Financial Planner: Horace León Ph.D.; CLIA# [id number] Blood 08/20/2024 3:38 PM CDT 08/20/2024 9:18 PM CDT us Socrates Contreras MD LAB BLOOD ORDERABLES Final Resul t AYSE BLAKE [address] [address] Department [place] [address] [facility] * Thyroglobulin reflex to MS or IA (08/20/2024 3:38 PM CDT) Anti-thyroglobulin <1.8 <1.8 IUnits/mL [facility] Comment: Thyroglobulin Antibody < 1.8 IU/mL. Thyroglobulin performed by Immunoassay to follow. Test Performed by: [facility] [address] [place] [address] Associate Financial Planner: Horace León Ph.D.; CLIA# [id number] Blood 08/20/2024 3:38 PM CDT 08/20/2024 9:18 PM CDT us Socrates Contreras MD LAB BLOOD ORDERABLES Final Resul t Performing Organization Address City/[facility] Co de Phone Number AYSE [address] [place] [address] [facility] * TSH (08/20/2024 3:38 PM CDT) Thyroid Stimulating Hormone 0.94 0.30 - 4.20 mcIUnit/mL Blood 08/20/2024 3:38 PM CDT 08/20/2024 9:18 PM CDT us Socrates Contreras MD LAB BLOOD ORDERABLES Final Resul t Performing Organization Address City/[facility] Co de Phone Number AYSE [address] [place] [address] * T4, free (08/20/2024 3:38 PM CDT) Free T4 1.52 0.90 - 1.70 ng/dL Blood 08/20/2024 3:38 PM CDT 08/20/2024 9:18 PM CDT us Socrates Contreras MD LAB BLOOD ORDERABLES Final Resul t Performing Organization Address City/[facility] Co de Phone Number AYSE [address] [address] Department [place] [place] [address] * XR Foot Left 3 [...] by Arik Camacho M.D. T: Report ID: [id number] Reading Location: [id number] Procedure Note Arik Camacho MD - 08/13/2024 [...] signed by Arik OCONNOR T: Report ID: [id number] Reading Location: [id number] us Garrett Sanders MD IMG XR PROCEDURES [...] by Arik Camacho M.D. T: Report ID: [id number] Reading Location: [id number] Procedure Note Arik Camacho MD - 08/13/2024 [...] by Arik Camacho M.D. T: Report ID: [id number] Reading Location: [id number] us Garrett Sanders MD IM XR PROCEDURES [...] signed by Ryan CARMONA T: Report ID: [id number] Reading Location: [place] [address] Procedure Note Ryan Colin MD - 08/19/2024 [...] signed by Ryan CARMONA T: Report ID: [id number] Reading Location: [place] [address] Garrett Sanders MD IM XR PROCEDURES Final [...] revised on 2019. Testing performed by: [facility], [address] [place]., [address] Blood 07/25/2024 9:30 AM CDT 07/25/2024 11:08 AM CDT Garrett Sanders MD LAB BLOOD ORDERABLES Final Resul t Performing Organization Address City/[facility] Co de Phone Number CECI[address] [employer] [place] [address] * Vitamin D 25 hydroxy (07/25/2024 9:30 AM CDT) Pathologist [facility] Vitamin D 25-OH 34.0 30.0 - 80.0 ng/mL Blood 07/25/2024 9:30 AM CDT 07/25/2024 9:46 AM CDT Garrett Sanders MD LAB BLOOD ORDERABLES Final Resul t Performing Organization Address [facility] Co de Phone Number [address] [place] [employer] [place] [address] * Erythrocyte sedimentation rate (07/25/2024 9:30 AM CDT) Pathologist [facility] Erythrocyte sedimentation rate 14 1 - 20 mm/hr Blood 07/25/2024 9:30 AM CDT 07/25/2024 9:46 AM CDT Garrett Sanders MD LAB BLOOD ORDERABLES Final Resul t Performing Organization Address [facility] Co de Phone Number [address] [employer] [place] [address] * Rheumatoid factor (07/25/2024 9:30 AM CDT) Rheumatoid factor, quant <10.0 <=15.0 IUnits/mL Blood 07/25/2024 9:30 AM CDT 07/25/2024 9:46 AM CDT Garrett Sanders MD LAB BLOOD ORDERABLES Final Resul t Performing Organization Address [facility] Co de Phone Number CECI[address] [employer] [place] [address] * CRP (acute phase) (07/25/2024 9:30 AM CDT) CRP 3.4 <=10.0 mg/L Blood 07/25/2024 9:30 AM CDT 07/25/2024 9:46 AM CDT Garrett Sanders MD LAB BLOOD ORDERABLES Final Resul t Performing Organization Address [facility] de Phone Number [address] [address] * Celiac reflex panel (07/15/2024 8:58 AM CDT) IgA 201 61 - 356 mg/dL [facility] Celiac disease interpretation See Footnote AYSE Comment: See Comment: Negative serology. Celiac disease unlikely. However, approximately 10% of patients with celiac disease are seronegative. Also, patients who are already adhering to a gluten-free diet may be seronegative. If celiac disease is highly clinically suspected, consider HLA-DQ typing. Test Performed by: [place] [address] Associate Financial Planner: Horace León Ph.D.; CLIA# [id number] Blood 07/15/2024 8:58 AM CDT 07/15/2024 9:41 AM CDT Garrett Sanders MD LAB BLOOD ORDERABLES Final Resul t Performing Organization Address [facility] de Phone Number [address] [employer] [place] [address] [facility] * Tissue transglutaminase IgA (TGG-IgA Ab) (07/15/2024 8:58 AM CDT) TTG ab, IgA <1.2 <4.0 (Negative) units/mL Comment: Test Performed by: [facility] [address] [place] [address] Associate Financial Planner: Horace León Ph.D.; CLIA# [id number] Interpretive data Negative: <15 units/mL Positive: > or equal to 15 units/mL Current interpretive data was last revised on 2016. Testing performed by: [facility], [address] [place]., [address] Blood 07/15/2024 8:58 AM CDT 07/15/2024 9:41 AM CDT us Garrett Sanders MD LAB BLOOD ORDERABLES Final Resul t [address] [place] [address] * N. gonorrhoeae/C. trachomatis Amplification Urine (06/13/2022 3:09 PM CDT) [facility] C. trachomatis Not Detected Not Detected AYSE Comment:Testing performed by : [facility], [address] [place] [address]., [id number] N. gonorrhoeae Not Detected Not Detected AYSE Comment: Interpretive Data Testing performed by the [facility]. This assay detects Chlamydia trachomatis and Neisseria gonorrhoeae by nucleic acid amplification testing (NAAT). This test is approved by the [facility] Food and Drug Administration and the performance characteristics have been verified by the laboratory. The performance characteristics of this test have not been evaluated in individuals less than 14 years of age. Current Interpretive Data was last revised on 2019. Testing performed by: [facility], [address] [place] [address]., [id number] Urine (None) 06/13/2022 3:09 PM CDT 06/13/2022 4:09 PM CDT us Maria Teresa OLIVA LAB MICROBIOLOGY - GENERAL ORDER SADIA Final Result Performing Organization Address [facility] de Phone Number AYSE [address] [facility] [place] [employer] [place] [address] * Hepatitis panel, acute (02/01/2022 7:53 PM CDT) Hep A IgM Nonreactive Nonreactive [facility] Comment: Interpretive Data: If Hep A IgM Ab is reported as Equivocal, a new sample should be drawn in two weeks for testing. Current interpretive data was last revised on 19. Hep B core IgM Nonreactive Nonreactive [facility] Comment: Interpretive Data If HepB Core IgM Ab is reported as Equivocal, a new sample should be drawn in two weeks for testing. Current interpretive data was last revised on 19. Hep C Ab Nonreactive Nonreactive [facility] Comment: Interpretive Data Nonreactive: Antibodies to [...] last revised on 2019. HepBsAg Nonreactive Nonreactive [facility] Blood 02/01/2022 7:53 PM CDT 02/01/2022 11:28 PM CDT Liz Tucker DO LAB MICROBIOLOGY - GENERAL ORDE RABRIANA Final Result Performing Organization Address [facility] Co de Phone Number AYSE [address] [facility] Department [place] [address] from Last 3 Months or Most Recently Relevant to Health Maintenance Insurance [facility] Care Teams Economic Historian Relationship Specialty Start Date End Date Garrett Sanders MD [address] [facility] [place] [address] PCP - General Family Medicine 04/09/23
--- OUTSIDE RECORDS SUMMARY | 2024-09-07 16:09 | XMS_ITS | Encounter Summary ---
Author Organization [facility] Healthcare Address [address] [place] [address] Care Team Providers Care [employer] Mission Helicopter Aircrewman Name Role Phone Samantha Olsen Primary Care Provider Fatuma Theodore NP Primary Care Provider [phone] Garrett Sanders MD Primary Care Provider [phone] Encounter Details Date Type Department Care Team (Late st Contact Info) Description 01/10/2022 Telephone [facility] OP Physical Therapy [address] [place] [address] Rosalva Hurley, PT Social History Tobacco [...] on file Legal Sex Female 5:33 AM BAKER BISCUIT Gender Identity Not on file Sexual Orientation Not on file documented as of this encounter Plan of Treatment Not on file documented as of this encounter Visit Diagnoses Not on filedocumented in this encounter Additional Health Concerns Infection Onset Date Last Indicated Resolved Time COVID: Suspected 02/14/2023 02/14/2023 02/14/2023 2:34 PM BAKER BISCUIT COVID: Suspected 04/09/2023 04/09/2023 04/09/2023 11:05 PM BAKER BISCUIT documented as of this encounter Care Teams [employer] Helicopter Aircrewman Relationship Specialty Start Date End Date Samantha Olsen PA PCP - General Family Medicine 12/13/21 01/28/23 Fatuma Theodore NP [address] [facility] [address] [place] [address] PCP - General Family Medicine 01/29/23 04/08/23 Garrett Sanders MD [address] [facility] [address] [place] [address] PCP - General Family Medicine 04/09/23 documented as of this encounter
[2024-09-07 16:46] LABS: Basophils Absolute Auto 0.1 K/mm3 (0.0-0.1); Basophils Percent Auto 0.8 % (0.2-1.2); Eosinophils Absolute Auto 0.2 K/mm3 (0-0.3); Eosinophils Percent Auto 2.7 % (0-4.4); Hematocrit 37.4 % (37.0-47.0); Hemoglobin 12.3 g/dL (12.0-15.0); Immature Granulocyte Absolute 0.05 K/mm3 (0.00-0.031); Immature Granulocyte Percent A 0.6 % (0-0.5); Lymphocytes Absolute Auto 2.29 K/mm3 (0.9-3.2); Lymphocytes Percent Auto 25.3 % (18.3-44.2); Mean Corpuscular HGB Conc 32.9 g/dl (32-36); Mean Corpuscular Hemoglobin 31.3 pg (26-34); Mean Corpuscular Volume 95.2 fl (80-100); Mean Platelet Volume 9.5 fl (7.4-10.4); Monocytes Absolute Auto 1.1 K/mm3 (0.1-0.6); Monocytes Percent Auto 12.4 % (2.6-8.5); Neutrophils Absolute Auto 5.3 K/mm3 (1.3-6.7); Neutrophils Percent Auto 58.2 % (45.5-73.1); Platelet Count Result 419 k/mm3 (150-375); Red Blood Count 3.93 M/mm3 (4.2-5.4); Red Cell Distribution Width 12.2 % (11.5-14.5)
[2024-09-07 17:02] LABS: Alanine Aminotransferase 57 U/L (6-35); Albumin Level 3.9 g/dL (3.5-5.1); Alkaline Phosphatase 42 U/L (38-126); Anion Gap 9 mmol/L (4-12); Aspartate Amino Transferase 55 U/L (14-36); Bilirubin,Total 0.4 mg/dL (0.2-1.3); Blood Urea Nitrogen 14 mg/dL (7-17); Calcium 8.2 mg/dL (8.4-10.2); Carbon Dioxide 24 mmol/L (22-30); Chloride 105 mmol/L (98-107); Estimated CRCL calculation 136 ml/min; Estimated Glomerular Filt Rate > 60; Glucose 120 mg/dL (65-110); Potassium 3.8 mmol/L (3.4-5.0); Sodium 138 mmol/L (137-145); Total Protein 6.9 g/dL (6.3-8.2)
[2024-09-07 17:11] LABS: NT Pro B Type Natriuretic Pept 82 pg/mL (19.9-100)
--- NOTE | 2024-09-07 17:46 | ED_ITS ---
HPI - SOB/Dyspnea General Chief Complaint: Shortness of Breath/Dyspnea Stated Complaint: worsening SOB x1 week Time Seen by Provider: 09/07/24 15:58 History of Present Illness HPI Narrative: Patient is a 23-year-old female who presents ER with shortness of breath. Ongoing over last week. Worse with exertion. Associated with lower extremity edema. Has history of rapid heart rate for which she takes medication for. Has history of fluid overload and takes Lasix. She took an extra dose today which helped improve her symptoms. She went to urgent care who recommend she come here to be evaluated for possible heart failure. No fevers or chills or sweats. No orthopnea. Related Data Home Medications ?Medication ?Instructions ?Recorded ?Confirmed ?Last Taken ?Type amlodipine 10 mg tablet 10 mg PO DAILY 05/26/24 06/06/24 06/06/24 History atenolol 50 mg tablet 50 mg PO Q24H 05/26/24 06/06/24 06/06/24 History levothyroxine 200 mcg tablet 200 mcg PO DAILY 05/26/24 06/06/24 06/06/24 History levothyroxine 25 mcg tablet 25 mcg PO DAILY 05/26/24 06/06/24 06/06/24 History naproxen 500 mg tablet 500 mg PO Q8H 05/26/24 05/26/24 Unknown History olanzapine 7.5 mg tablet 7.5 mg PO QPM 05/26/24 05/26/24 Unknown History sertraline 100 mg tablet 100 mg PO Q24H 05/26/24 05/26/24 Unknown History Allergies Allergy/AdvReac Type Severity Reaction Status Date / Time adhesive tape Allergy Intermediate Rash Verified 09/07/24 15:29 lactose AdvReac Intermediate Diarrhea Verified 09/07/24 15:29 Review of Systems 2 Review of Systems: All systems reviewed & are unremarkable except as noted in HPI and below Constitutional: Constitutional: Reports no additional constitutional complaints ENT: Reports system reviewed and no additional complaints, except as documented Cardiovascular: Cardiovascular: Reports no additional cardiovascular complaints Respiratory: Respiratory: Reports no additional respiratory complaints Gastrointestinal: Gastrointestinal: Reports no additional gastrointestinal complaints [facility] Past Medical History Medical History Tachycardia Hypertension Hypothyroidism Depression Anxiety Thyroid cancer Surgical History Surgical History H/O partial thyroidectomy Right, 04/10/2018 Social History Social History Smoking packs per day: 1 Smoking cigarettes per day: 20.0 Years smoked: 4 Smoking pack-years: 4.00 Smoking status: Former smoker Tobacco type: cigarettes Smoking end date: 04/02/20 Additional smoking assessment comments: Vapes now, vrs smoking Alcohol intake: never Substance use type: marijuana and other Other substance usage details: Vapes and Marijuana smokes daily Living arrangements: with family Additional living arrangements comments: Brother Spiritual care concerns: No Exam 2 Narrative: GENERAL: Well-appearing, well-nourished, and in no acute distress. HEAD: Normocephalic, atraumatic. ENT: Mucous membranes moist. NECK: Supple. CHEST: Clear to auscultation. No respiratory distress. HEART: Regular rate and rhythm. Normal peripheral pulses. ABDOMEN: Soft, nontender, nondistended. EXTREMITIES: Normal range of motion. 1+ edema. SKIN: Warm, dry, no rash. NEURO: Alert and oriented x3. PSYCH: Normal mood and affect. Course Course Emergency Course: Labs and imaging normal. Patient not felt to be having heart failure exacerbation. No pain with deep breath, no hemoptysis, no lower extremity DVT. I do not think patient has a PE. She will be discharged home and can follow up with her PCP. Heart rate 80 beats per minute at this time patient speaks in full sentences without any distress. Vital Signs Vital signs: Vital Signs Temperature 98.3 F 09/07/24 15:30 Pulse Rate 104 H 09/07/24 15:30 Respiratory Rate 22 H 09/07/24 15:30 Blood Pressure 140/91 H 09/07/24 15:30 Pulse Oximetry 100 09/07/24 15:30 Oxygen Delivery Room Air 09/07/24 15:30 Temperature 98.3 F 09/07/24 15:30 Pulse Rate 104 H 09/07/24 15:30 Respiratory Rate 22 H 09/07/24 15:30 Blood Pressure 140/91 H 09/07/24 15:30 Pulse Oximetry 100 09/07/24 15:30 Oxygen Delivery Room Air 09/07/24 15:30 MDM - SOB/Dyspnea Lab Data 09/07/24 16:41 09/07/24 16:41 Labs: Lab Results 09/07/24 Range/Units 16:41 WBC 9.0 (4.5-10.0) K/mm3 RBC 3.93 L (4.2-5.4) M/mm3 Hgb 12.3 (12.0-15.0) g/dL Hct 37.4 (37.0-47.0) % MCV 95.2 (80-100) fl MCH 31.3 (26-34) pg MCHC 32.9 (32-36) g/dl RDW 12.2 (11.5-14.5) % Plt Count 419 H (150-375) k/mm3 MPV 9.5 (7.4-10.4) fl Immature Gran % (Auto) 0.6 H (0-0.5) % Neut % (Auto) 58.2 (45.5-73.1) % Lymph % (Auto) 25.3 (18.3-44.2) % [place] % (Auto) 12.4 H (2.6-8.5) % Eos % (Auto) 2.7 (0-4.4) % Baso % (Auto) 0.8 (0.2-1.2) % Lymph # (Auto) 2.29 (0.9-3.2) K/mm3 [place] # (Auto) 1.1 H (0.1-0.6) K/mm3 Eos # (Auto) 0.2 (0-0.3) K/mm3 Baso # (Auto) 0.1 (0.0-0.1) K/mm3 Abs Immat Gran (auto) 0.05 H (0.00-0.031) K/mm3 Absolute Neuts (auto) 5.3 (1.3-6.7) K/mm3 Absolute Nucleated RBC 0.000 (0.0-0.012) K/mm3 Nucleated RBC % 0.0 (0.0-0.2) % Sodium 138 (137-145) mmol/L Potassium 3.8 (3.4-5.0) mmol/L Chloride 105 (98-107) mmol/L Carbon Dioxide 24 (22-30) mmol/L Anion Gap 9 (4-12) mmol/L BUN 14 (7-17) mg/dL Creatinine 0.83 (0.7-1.0) mg/dL Estim Creat Clear Calc 136 ml/min Estimated GFR > 60 (59 - ) Glucose 120 H (65-110) mg/dL Calcium 8.2 L (8.4-10.2) mg/dL Total Bilirubin 0.4 (0.2-1.3) mg/dL AST 55 H (14-36) U/L ALT 57 H (6-35) U/L Alkaline Phosphatase 42 (38-126) U/L NT-Pro-B Natriuret Pep 82 (19.9-100) pg/mL Total Protein 6.9 (6.3-8.2) g/dL Albumin 3.9 (3.5-5.1) g/dL Discharge Plan Discharge Clinical Impression: Dyspnea Patient Disposition: Home Condition: Stable Instructions: Dyspnea (ED) Additional Instructions: Please return to the emergency department if you develop severe and persistent chest pain, difficulty breathing, dizziness, leg swelling or if you are coughing up blood as these can be signs of a medical emergency. Please call your doctor for a follow up appointment to determine the need for further testing. Patient Language: Citizen Of [place] Prescriptions: No Action levothyroxine 25 mcg tablet 25 mcg PO DAILY levothyroxine 200 mcg tablet 200 mcg PO DAILY olanzapine 7.5 mg tablet 7.5 mg PO QPM sertraline 100 mg tablet 100 mg PO Q24H amlodipine 10 mg tablet 10 mg PO DAILY atenolol 50 mg tablet 50 mg PO Q24H naproxen 500 mg tablet 500 mg PO Q8H hydrocodone-acetaminophen 5-325 mg tablet 1 tablet PO Q4H PRN (Reason: pain) Qty: 20 0RF azithromycin 250 mg tablet See Rx Instructions .ROUTE .COMPLEX Qty: 6 0RF Rx Instructions: For 250 mg dose pack: take 500 mg today (day 1), then 250 mg for 4 days (days 2-5) ibuprofen 600 mg tablet 600 mg PO TID PRN (Reason: pain) Qty: 30 0RF acetaminophen 500 mg capsule 1,000 mg PO Q6H PRN (Reason: pain) Qty: 30 0RF calcium gluconate 60 mg calcium (650 mg) tablet 60 mg PO QID 5 Days Qty: 20 0RF calcitriol 0.25 mcg capsule 0.25 mcg PO BID 5 Days Qty: 10 0RF Follow-up/Referrals: Olesya Burnham, WEATHERIZATION AND HOUSING INSPECTOR-C [Primary Care Provider] - 1 Week
[2024-09-07 17:55] VITALS: BP 126/90; PULSE 94; RESP 16; O2SAT 97
== END 2024-09-07 18:00 | disposition home or self-care (01) ==
PROVIDERS: Emergency Provider Emergency Medicine; PCP Nurse Practitioner Family
DX: R06.00 Dyspnea, unspecified (principal); I10 Essential (primary) hypertension; E03.9 Hypothyroidism, unspecified; F41.8 Other specified anxiety disorders; Z85.850 Personal history of malignant neoplasm of thyroid; Z87.891 Personal history of nicotine dependence
CPT/HCPCS: 36415; 71046; 80053; 83880; 85025; 93970; 99284

== ENCOUNTER 2025-02-09 15:12 | Outpatient (CLI) | payer OTHER, SELFPAY ==
--- NOTE | ~2025-02-09 | XR_ITS ---
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 Findings: Remote corticated fracture of the lateral malleolus, no acute fracture is identified No significant degenerative changes. Soft tissues unremarkable. Impression: No acute fracture or malalignment. Reviewed, dictated and finalized at location P. ER APPRENTICE Impression: No acute fracture or malalignment.
--- NOTE | ~2025-02-09 | XR_ITS ---
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 Findings: No acute fracture or malalignment. No significant degenerative changes. Soft tissues unremarkable. Impression: No acute fracture or malalignment. Reviewed, dictated and finalized at location P. REL MANUFACTURE INSTRUCTOR Impression: No acute fracture or malalignment.
== END 2025-02-09 15:13 | disposition home or self-care (01) ==
LOC: MICIMG 15:14
PROVIDERS: PCP Family Medicine
DX: S99.911A Unspecified injury of right ankle, initial encounter (principal); S99.912A Unspecified injury of left ankle, initial encounter; W10.9XXA Fall (on) (from) unspecified stairs and steps, initial encounter
CPT/HCPCS: 73610

== ENCOUNTER 2025-03-20 19:18 | Observation (INO) | payer OTHER, SELFPAY ==
--- OUTSIDE RECORDS SUMMARY | 2025-02-23 04:00 | XMS_ITS ---
Author Organization [facility] [employer] Address [address] [address] Care Team Providers Care Certified Meeting Professional Name Role Phone Olga CALIX, Rich Primary Care Provider UnavailLes Jones Unavailable [phone] Kerrie Coreas APRN Unavailable Unavailable REASON FOR VISIT new patient Social History Sex Assigned At : Social History Observation Description Sex Assigned At Female Encounters Encounter Location Date Provider Diagnosis [facility], [address] [address] [address] 02/23/2025 Les Jane Plan Of Treatment Next Appt Details Provider Name:Les Jane, 03/30/2025 02:15:00 PM, [address], [place] [address], [place], [address], Progress Notes * Scot DORMANOB:2000 ( 24 yo F)Acc No.[id number]:02/23/2025 Patient: Tim bolesMervat elizabeth Provider: DEMAR Conley :2000 A ge:24 Y S ex:Female Date:02/23/2025 Address:[address] [id number] Pcp:Rich Espinoza MD Subjective: * Chief Complaints: * N ew patient Billing Information: * Procedure Codes: * Electronic signature of DEMAR Tyson on 03/24/2025 at 09:04 AM LACQUER POLISHER Sign off status: Pending * Provider: DEMAR Conley Date: 04/25/2024 Generated for Aiden naik/Delphine/Jack on: 05/25/2024 09:04 AM LACQUER POLISHER
--- OUTSIDE RECORDS SUMMARY | 2025-02-23 04:00 | XMS_ITS ---
Author Organization [facility] [employer] [facility] Address [address] [address] Care Team Providers Care Parish Visitor Name Role Phone Olga CALIX, Rich Primary Care Provider Unavaila Les Low Unavailable [phone] Kerrie Coreas APRN Unavailable Unavailable REASON FOR VISIT new patient Social History Sex Assigned At : Social History Observation Description Sex Assigned At Female Encounters Encounter Location Date Provider Diagnosis [facility], [address] [address] [address] 02/23/2025 Les Jane Plan Of Treatment No Information Progress Notes * DANDYScot DumontOB:2000 ( 24 yo F)Acc No.[id number]:02/23/2025 Patient: Puma Seymourn Provider: DEMAR Conley :2000 A ge:24 Y S ex:Female Date:02/23/2025 Address:[address] [facility] Pcp:Rich Espinoza MD Subjective: * Chief Complaints: * N ew patient Billing Information: * Procedure Codes: * Electronic signature of DEMAR Tyson on 03/21/2025 at 01:53 PM LABORER PIE BAKERY Sign off status: Pending * Provider: DEMAR Conley Date: 04/25/2024 Generated for Printi ng/Faxing/eTransmitting on: 05/22/2024 01:53 PM LABORER PIE BAKERY
--- NOTE | ~2025-03-20 | CT_ITS ---
CT brain wo con HISTORY:FALL, SEIZURE COMPARISON: None. TECHNIQUE: Axial images were obtained of the head without intravenous contrast. FINDINGS: No acute intracranial hemorrhage, mass effect or midline shift. No extra-axial fluid collections. The calvarium is intact. Visualized paranasal sinuses and mastoid air cells are clear. IMPRESSION: No acute intracranial hemorrhage or extra axial fluid collections. All CT scans at this facility are performed using low dose modulation techniques as appropriate to perform exam including the following: automated exposure control; use of iterative reconstruction technique; adjustment of the mA and/or kV according to patient size (this includes techniques or standardized protocols for targeted exams where dose is matched to indication/reason for exam). Reviewed, dictated and finalized at location S. ACE BUILDER IMPRESSION: No acute intracranial hemorrhage or extra axial fluid collections. All CT scans at this facility are performed using low dose modulation techniqu es as appropriate to perform exam including the following: automated exposure c ontrol; use of iterative reconstruction technique; adjustment of the mA and/or kV according to patient size (this includes techniques or standardized protocol s for targeted exams where dose is matched to indication/reason for exam).
--- NOTE | ~2025-03-20 | MR_ITS ---
EXAMINATION: MR brain/brain stem wo con DATE: 03/22/2025 15:23 INDICATION: Seizure. TECHNIQUE: Magnetic resonance imaging (MRI) of the brain and brainstem was performed without intravenous contrast. COMPARISON: CT head without contrast dated 03/20/2025. FINDINGS: No acute ischemic change on the diffusion sequence. No evidence of demyelinating lesions on chronic ischemic change on the FLAIR sequence. No evidence of ventriculomegaly or midline shift. No focal pathology of the posterior fossa. Pituitary gland is normal in size. IMPRESSION: 1. No evidence of acute ischemia, chronic ischemia or demyelinating lesions of the brain. 2. Significant no evidence of space-occupying lesions. No ventriculomegaly or midline shift. Reviewed, dictated and finalized at location T. OUTBOARD ENGINE MECHANIC IMPRESSION: 1. No evidence of acute ischemia, chronic ischemia or demyelinating lesions of the brain. 2. Significant no evidence of space-occupying lesions. No ventriculomegaly or m idline shift.
--- NOTE | ~2025-03-20 | CT_ITS ---
CT cervical spine wo con HISTORY: FALL COMPARISON: None TECHNIQUE: Axial images of the cervical spine were obtained. Multiplanar reconstruction in the coronal, sagittal and axial reformats to evaluate for cervical fracture. FINDINGS: The images demonstrate no acute fracture or paravertebral soft tissue swelling. There is no high-grade central or foraminal stenosis. No significant degenerative changes are noted. The visualized aspect of the upper lungs are clear. IMPRESSION: No acute fracture or subluxation. All CT scans at this facility are performed using low dose modulation techniques as appropriate to perform exam including the following: automated exposure control; adjustment of the mA and/or kV according to patient size (this includes techniques or standardized protocols for targeted exams where does is matched to indication/reason for exam; i.e. extremities or head); use of iterative reconstruction technique). Reviewed, dictated and finalized at location S. TIVE DETECTIVE IMPRESSION: No acute fracture or subluxation. All CT scans at this facility are performed using low dose modulation techniqu es as appropriate to perform exam including the following: automated exposure c ontrol; adjustment of the mA and/or kV according to patient size (this includes techniques or standardized protocols for targeted exams where does is matched to indication/reason for exam; i.e. extremities or head); use of iterative payal nstruction technique).
[2025-03-20 19:19] VITALS: BP 138/97; PULSE 108; RESP 20; TEMP 36.8; O2SAT 96
--- NOTE | 2025-03-20 19:32 | ECG_ITS ---
Test Date: 2025-03-20 19:45:30 Measurements Intervals [place] Rate: 102 P: 41 NM: 160 QRS: 17 QRSD: 97 T: -9 QT: 327 QTc: 426 Interpretive Statements SINUS TACHYCARDIA LOW QRS VOLTAGE IN PRECORDIAL LEADS BORDERLINE ST-T WAVE ABNORMALITY- ANT/INF LEADS BORDERLINE ECG Compared to ECG 08/23/2024 05:08:53 HEART RATE HAS INCREASED Electronically Signed On 03-20-2025 21:06:38 INDUSTRIAL CONTROLLER by Andrew Zhagn D.O.
--- NOTE | 2025-03-20 19:47 | ED_ITS ---
HPI - Seizure General Chief Complaint: Seizure Stated Complaint: woke up on floor Time Seen by Provider: 03/20/25 19:47 Source: patient and EMS Mode of arrival: EMS Limitations: no limitations History of Present Illness HPI Narrative: 24 YEARS OLD WHITE FEMALE CAME TO THE ED BY AMBULANCE FROM HOME TELLING ME THAT SHE HAD SEIZURE TWICE TODAY. THE 1ST 1 WHILE SHOPPING IN A STORE, EVERYTHING STARTED TURN WHITE HAD HARD TIME TO FOCUS, SHAKING AND WOKE UP ON THE FLOOR, NO WITNESS. PATIENT DENIES BITING HER TONGUE OR URINE INCONTINENCE, WAS ABLE TO GET UP AND GO BACK HOME WALKING. PATIENT IS TELLING ME THAT SHE WAS A LITTLE BIT WOBBLY WHILE GETTING BACK. PATIENT IS TELLING ME THAT SHE HAD ANOTHER SEIZURE AT HOME, NO WITNESS,. PATIENT IS TELLING ME THAT SHE HAD SEIZURE IN JULY, WAS TREATED WITH VALIUM, WAITING FOR EEG AND MRI OF THE BRAIN, NEVER BEEN SEEN BY NEUROLOGIST IN THE PAST FOR HER SEIZURE. HISTORY OF OBSESSIVE-COMPULSIVE DISORDER, THYROID CANCER, SUICIDAL IDEATION, ARTHRITIS, ENDOMETRIOSIS, SEIZURE, TACHYCARDIA, HYPERTENSION, HYPOTHYROIDISM, DEPRESSION, ANXIETY Related Data Home Medications ?Medication ?Instructions ?Recorded ?Confirmed ?Last Taken ?Type cyanocobalamin (vitamin B-12) 500 mcg PO 02/04/2501/31 Unknown History mcg tablet pregabalin 100 mg capsule 300 mg PO TID 02/04/2502/17 Unknown History tramadol 50 mg tablet mg PO 02/04/25 02/17/25 Unkn own History Allergies Allergy/AdvReac Type Severity Reaction Status Date / Time adhesive tape Allergy Intermediate Rash Verified 02/20/25 08:00 lactose AdvReac Intermediate Diarrhea Verified 02/20/25 08:00 amoxicillin AdvReac Hives Verified 02/20/25 08:00 [facility] Past Medical History Medical History (Updated 03/20/25 @ 22:04 by Velia Green MD) FHx: thyroid cancer Lateral malleolar fracture Binge eating disorder Has less than high school diploma OCD (obsessive compulsive disorder) History of thyroid cancer Suicidal ideation Arthritis Endometriosis Seizures Tachycardia Hypertension Hypothyroidism Depression Anxiety Thyroid cancer Surgical History Surgical History H/O partial thyroidectomy Right, 04/10/2018 Family History Family History Mother Asthma Depression Father Hypertension Depression Alcoholism Grandparent Breast cancer Social History Social History Smoking packs per day: 1 Smoking cigarettes per day: 20.0 Years smoked: 4 Smoking pack-years: 4.00 Smoking status: Current every day smoker Tobacco type: cigarettes and e-cigarettes/vaping Smoking end date: 04/02/20 Additional smoking assessment comments: Vapes now, vrs smoking Alcohol intake: never Substance use: current Substance use type: marijuana and other Other substance usage details: Vapes and Marijuana smokes daily Lack of Transportation: No Lack of Food: Never True Current Housing: I Have Housing Concerned About Future Housing: No Difficulty Paying Gas/Electric Bills: No Difficulty Paying for Meds: No Currently Unemployed: No Difficulty w/ Childcare or Family Care: No Living arrangements: with family Additional living arrangements comments: Brother Spiritual care concerns: No Exam 2 Narrative: GENERAL APPEARANCE: WELL-DEVELOPED, WELL-NOURISHED SKIN: NORMAL COLOR, NO BRUISES, NO RASH HEAD: NORMOCEPHALIC, NONTRAUMATIC EYES: CLEAR CONJUNCTIVA ENT: OROPHARYNX NORMAL, EARS NORMAL, NOSE NORMAL NECK: SUPPLE, NONTENDER CHEST AND RESPIRATORY: AIRWAY PATENT, NO RESPIRATORY DISTRESS, NO ACCESSORY MUSCLE USE DIFFUSE TENDERNESS OF THE CHEST BILATERALLY, NO BRUISES, NO SWELLING OR RASH HEART: REGULAR RATE/RHYTHM ABDOMEN: SOFT, NONTENDER, NO ORGANOMEGALY, QUIET BOWEL SOUNDS VASCULAR: NORMAL PERIPHERAL PULSES, NORMAL CAPILLARY REFILL. MUSCULOSKELETAL: DIFFUSE TENDERNESS ACROSS LUMBAR AREA AND UPPER BACK BILATERALLY, NO BRUISES, NO SWELLING, NO RASH NEUROLOGIC: ALERT AND ORIENTED ?3, BRUSHER TENDER IS NORMAL TESTED, NO GROSS MOTOR DEFICIT Course Vital Signs Vital signs: Vital Signs Temperature 36.8 C 03/20/25 19:19 Pulse Rate 108 H 03/20/25 19:19 Respiratory Rate 20 03/20/25 19:19 Blood Pressure 138/97 H 03/20/25 19:19 Pulse Oximetry 96 03/20/25 19:19 Oxygen Delivery Room Air 03/20/25 19:19 Temperature 36.8 C 03/20/25 19:19 Pulse Rate 108 H 03/20/25 19:19 Respiratory Rate 20 03/20/25 19:19 Blood Pressure 138/97 H 03/20/25 19:19 Pulse Oximetry 96 03/20/25 19:19 Oxygen Delivery Room Air 03/20/25 19:19 [facility] Narrative Medical decision making narrative: PATIENT CAME TO THE ED BY AMBULANCE FROM HOME WITH 2 EPISODE OF UNWITNESSED SEIZURE. VITAL SIGNS SHOWING HEART RATE OF 108 OTHERWISE WITHIN NORMAL LIMIT PHYSICAL EXAMINATION SHOWING DIFFUSE TENDERNESS OF THE BACK UPPER AND LOWER, WITHOUT BRUISES OR RASH, DIFFUSE TENDERNESS OF THE CHEST BILATERALLY WITHOUT BRUISES OR RASH. DIFFERENTIAL DIAGNOSIS A PSEUDO-SEIZURE, ANXIETY, DEPRESSION RELATED SYMPTOMS, ELECTROLYTE IMBALANCE, DEHYDRATION, URINARY TRACT INFECTION, THYROID GLAND DISORDER. BLOOD WORKUP TODAY INCLUDES CBC, CMP, TSH SHOWED WBC 14.4, PLATELET 448, CREATININE 1.25, TOTAL CPK 200, TSH 36.5 OTHERWISE WITHIN NORMAL LIMIT URINALYSIS SHOWED NO EVIDENCE OF INFECTION, URINE DRUG SCREEN POSITIVE FOR CANNABIS CT HEAD WITHOUT CONTRAST SHOWED NO ACUTE ABNORMALITY CT CERVICAL SPINE WITHOUT CONTRAST SHOWED NO ACUTE ABNORMALITY EKG ON ARRIVAL SHOWED SINUS TACHYCARDIA 102 BEATS PER MINUTE, LOW QRS VOLTAGE IN PRECORDIAL LEADS, BORDERLINE ST T-WAVE ABNORMALITY, BORDERLINE EKG, COMPARED TO EKG ON AUGUST 23, 2024 HEART RATE HAS INCREASED. DIAGNOSIS DUARTE, SEIZURE, HYPOTHYROIDISM ADMIT TO HOSPITALIST IN THE ED PATIENT RECEIVED 2 L OF NORMAL SALINE IV, 250 MCG LEVOTHYROXINE P.O. Differential Diagnosis Differential Diagnosis: ABOVE Medical Records I have reviewed the following patient records and this information was taken into consideration when formulating the assessment and plan.: previous labs, previous ER visits, previous hospitalizations and previous clinic visits Lab Data [facility] Lab Attestation statement: I personally reviewed the patient's lab results. 03/20/25 19:58 03/20/25 19:58 Labs: Lab Results 03/20/25 03/20/25 03/20/25 Range/Units 19:22 19:58 21:01 WBC 14.4 H (4.5-10.0) K/mm3 RBC 4.61 (4.2-5.4) M/mm3 Hgb 14.7 (12.0-15.0) g/dL Hct 43.0 (37.0-47.0) % MCV 93.3 (80-100) fl MCH 31.9 (26-34) pg MCHC 34.2 (32-36) g/dl RDW 12.2 (11.5-14.5) % Plt Count 448 H (150-375) k/mm3 MPV 10.0 (7.4-10.4) fl Immature Gran % (Auto) 0.4 (0-0.5) % Neut % (Auto) 71.6 (45.5-73.1) % Lymph % (Auto) 13.5 L (18.3-44.2) % [place] % (Auto) 10.2 H (2.6-8.5) % Eos % (Auto) 3.7 (0-4.4) % Baso % (Auto) 0.6 (0.2-1.2) % Lymph # (Auto) 1.94 (0.9-3.2) K/mm3 [place] # (Auto) 1.5 H (0.1-0.6) K/mm3 Eos # (Auto) 0.5 H (0-0.3) K/mm3 Baso # (Auto) 0.1 (0.0-0.1) K/mm3 Abs Immat Gran (auto) 0.06 H (0.00-0.031) K/mm3 Absolute Neuts (auto) 10.3 H (1.3-6.7) K/mm3 Absolute Nucleated RBC 0.000 (0.0-0.012) K/mm3 Nucleated RBC % 0.0 (0.0-0.2) % % Immature Plt Fraction 2.2 (0.9-11.2) % Sodium 139 (137-145) mmol/L Potassium 3.8 (3.4-5.0) mmol/L Chloride 101 (98-107) mmol/L Carbon Dioxide 27 (22-30) mmol/L Anion Gap 11 (4-12) mmol/L BUN 13 (7-17) mg/dL Creatinine 1.25 H (0.7-1.0) mg/dL Estim Creat Clear Calc 100 ml/min Estimated GFR 53 L (59 - ) Glucose 93 (65-110) mg/dL POC Capillary Glucose 105 (65-105) mg/dl Calcium 8.5 (8.4-10.2) mg/dL Total Bilirubin 0.7 (0.2-1.3) mg/dL AST 39 H (14-36) U/L ALT 35 (6-35) U/L Alkaline Phosphatase 61 (38-126) U/L Total Creatine Kinase 200 H (30-135) U/L Total Protein 8.4 H (6.3-8.2) g/dL Albumin 4.6 (3.5-5.1) g/dL TSH 36.500 H (0.465-4.680) uIU/mL Urine Color Yellow (Yellow) Urine Appearance Clear (Clear) Urine pH 6.0 (5.0-9.0) Ur Specific [place] 1.026 (1.001-1.035) Urine Protein 1+ H (Negative) mg/dL Urine Glucose (UA) Negative (Negative) mg/dL Urine Ketones Trace H (Negative) mg/dL Ur Blood (Man) Negative (Negative) Urine Nitrate Negative (Negative) Urine Bilirubin Negative (Negative) Urine Urobilinogen 1.0 (<2.0) mg/dL Add Ur Microanalysis Reviewed Leukocyte Esterase Rfl Negative (Negative) PERFECTO/UL Urine RBC 0-2 (0-2) /hpf Urine WBC 0-5 (0-3) /hpf Ur Squamous Epith Cells Occasional (Few) /hpf Urine Bacteria Rare /hpf Urine Casts 3-5 Hyaline Casts Present (None) /lpf Urine Mucus Present /lpf POC Urine HCG, Qual (Negative) Urine Opiates Screen Negative (Negative) Urine Methadone Screen Negative (Negative) Ur Barbiturates Screen Negative (Negative) Ur Phencyclidine Scrn Negative (Negative) Ur Amphetamine Screen Negative (Negative) U Benzodiazepines Scrn Negative (Negative) Urine Cocaine Screen Negative (Negative) U Cannabinoids Screen Positive A (Negative) Ethyl Alcohol < 10 (<10) mg/dL 03/20/25 Range/Units 21:06 WBC (4.5-10.0) K/mm3 RBC (4.2-5.4) M/mm3 Hgb (12.0-15.0) g/dL Hct (37.0-47.0) % MCV (80-100) fl MCH (26-34) pg MCHC (32-36) g/dl RDW (11.5-14.5) % Plt Count (150-375) k/mm3 MPV (7.4-10.4) fl Immature Gran % (Auto) (0-0.5) % Neut % (Auto) (45.5-73.1) % Lymph % (Auto) (18.3-44.2) % [place] % (Auto) (2.6-8.5) % Eos % (Auto) (0-4.4) % Baso % (Auto) (0.2-1.2) % Lymph # (Auto) (0.9-3.2) K/mm3 [place] # (Auto) (0.1-0.6) K/mm3 Eos # (Auto) (0-0.3) K/mm3 Baso # (Auto) (0.0-0.1) K/mm3 Abs Immat Gran (auto) (0.00-0.031) K/mm3 Absolute Neuts (auto) (1.3-6.7) K/mm3 Absolute Nucleated RBC (0.0-0.012) K/mm3 Nucleated RBC % (0.0-0.2) % % Immature Plt Fraction (0.9-11.2) % Sodium (137-145) mmol/L Potassium (3.4-5.0) mmol/L Chloride (98-107) mmol/L Carbon Dioxide (22-30) mmol/L Anion Gap (4-12) mmol/L BUN (7-17) mg/dL Creatinine (0.7-1.0) mg/dL Estim Creat Clear Calc ml/min Estimated GFR (59 - ) Glucose (65-110) mg/dL POC Capillary Glucose (65-105) mg/dl Calcium (8.4-10.2) mg/dL Total Bilirubin (0.2-1.3) mg/dL AST (14-36) U/L ALT (6-35) U/L Alkaline Phosphatase (38-126) U/L Total Creatine Kinase (30-135) U/L Total Protein (6.3-8.2) g/dL Albumin (3.5-5.1) g/dL TSH (0.465-4.680) uIU/mL Urine Color (Yellow) Urine Appearance (Clear) Urine pH (5.0-9.0) Ur Specific [place] (1.001-1.035) Urine Protein (Negative) mg/dL Urine Glucose (UA) (Negative) mg/dL Urine Ketones (Negative) mg/dL Ur Blood (Man) (Negative) Urine Nitrate (Negative) Urine Bilirubin (Negative) Urine Urobilinogen (<2.0) mg/dL Add Ur Microanalysis Leukocyte Esterase Rfl (Negative) PERFECTO/UL Urine RBC (0-2) /hpf Urine WBC (0-3) /hpf Ur Squamous Epith Cells (Few) /hpf Urine Bacteria /hpf Urine Casts Hyaline Casts (None) /lpf Urine Mucus /lpf POC Urine HCG, Qual Negative (Negative) Urine Opiates Screen (Negative) Urine Methadone Screen (Negative) Ur Barbiturates Screen (Negative) Ur Phencyclidine Scrn (Negative) Ur Amphetamine Screen (Negative) U Benzodiazepines Scrn (Negative) Urine Cocaine Screen (Negative) U Cannabinoids Screen (Negative) Ethyl Alcohol (<10) mg/dL Imaging Data Radiologist's impression: ITS Impressions Head CT 03/20/25 21:01 IMPRESSION: No acute intracranial hemorrhage or extra axial fluid collections. All CT scans at this facility are performed using low dose modulation techniques as appropriate to perform exam including the following: automated exposure control; use of iterative reconstruction technique; adjustment of the mA and/or kV according to patient size (this includes techniques or standardized protocols for targeted exams where dose is matched to indication/reason for exam). Cervical Spine CT 03/20/25 21:02 IMPRESSION: No acute fracture or subluxation. All CT scans at this facility are performed using low dose modulation techniques as appropriate to perform exam including the following: automated exposure control; adjustment of the mA and/or kV according to patient size (this includes techniques or standardized protocols for targeted exams where does is matched to indication/reason for exam; i.e. extremities or head); use of iterative reconstruction technique). ECG Data EKG #1: Attestation: I personally reviewed and interpreted this ECG as follows: ECG completion date: 03/20/25 Interpretation: SINUS TACHYCARDIA 102 PER MINUTE, LOW QRS VOLTAGE IN PRECORDIAL LEADS, BORDERLINE ST T-WAVE ABNORMALITY, BORDERLINE EKG, COMPARED TO EKG ON AUGUST 23 HEART RATE HAS INCREASED Critical Care Time Critical Care Time Critical Care Time: Yes Time Type: Intermittent Initial evaluation, discuss w/ involved parties, attempting to gather old records: 10 minutes Documenting medical record: 5 minutes Review of results (EKG's, labs, imaging): 5 minutes Serial repeat bedside evaluation: 10 minutes Discussing case with multiple memebers of the care team and consultants: 5 minutes Total Critical Care Time: 35 Discharge Plan Discharge Clinical Impression: Seizures, DUARTE (acute kidney injury), Hypothyroidism Patient Disposition: Still a Patient Condition: Stable Patient Language: Icelandic Prescriptions: No Action atenolol 50 mg tablet 50 mg PO Q24H Qty: 30 6RF lurasidone 40 mg tablet 40 mg PO DAILY Qty: 14 0RF Rx Instructions: Patient weaning off, take 1/2 tablet daily for one week, then 1/2 tablet every other day for one week then stop. famotidine 40 mg tablet 40 mg PO DAILY Qty: 30 6RF levothyroxine 200 mcg tablet 200 mcg PO DAILY Qty: 30 6RF sertraline 200 mg capsule 200 mg PO DAILY Qty: 30 6RF bupropion HCl [Wellbutrin SR] 100 mg tablet sustained-release 12 hr 100 mg PO BID Qty: 60 2RF Vraylar 1.5 mg capsule 1.5 mg PO QHS Qty: 30 1RF Rx Instructions: Weaning off Latuda. Start taking one Capsule nightly. tramadol 50 mg tablet PO cyanocobalamin (vitamin B-12) 500 mcg tablet PO pregabalin 100 mg capsule 300 mg PO TID acetaminophen 500 mg capsule 1,000 mg PO Q6H PRN (Reason: pain) Qty: 30 0RF levothyroxine [Levoxyl] 50 mcg tablet 50 mcg PO DAILY Qty: 90 0RF Follow-up/Referrals: Kerrie Coreas APRN [Primary Care Provider, Family Practice]
[2025-03-20 20:24] LABS: Hematocrit 43.0 % (37.0-47.0); Hemoglobin 14.7 g/dL (12.0-15.0); Immature Granulocyte Percent A 0.4 % (0-0.5); Immature Platelet Fraction Pct 2.2 % (0.9-11.2); Lymphocytes Absolute Auto 1.94 K/mm3 (0.9-3.2); Mean Corpuscular HGB Conc 34.2 g/dl (32-36); Mean Corpuscular Hemoglobin 31.9 pg (26-34); Mean Corpuscular Volume 93.3 fl (80-100); Nucleated Red Blood Cells Absolute Auto 0.000 K/mm3 (0.0-0.012); Nucleated Red Blood Cells Perc 0.0 % (0.0-0.2); Platelet Count Result 448 k/mm3 (150-375); Red Blood Count 4.61 M/mm3 (4.2-5.4); White Blood Count 14.4 K/mm3 (4.5-10.0)
[2025-03-20 20:32] LABS: Alanine Aminotransferase 35 U/L (6-35); Albumin Level 4.6 g/dL (3.5-5.1); Alkaline Phosphatase 61 U/L (38-126); Anion Gap 11 mmol/L (4-12); Aspartate Amino Transferase 39 U/L (14-36); Bilirubin,Total 0.7 mg/dL (0.2-1.3); Blood Urea Nitrogen 13 mg/dL (7-17); Calcium 8.5 mg/dL (8.4-10.2); Carbon Dioxide 27 mmol/L (22-30); Chloride 101 mmol/L (98-107); Creatine Kinase 200 U/L (30-135); Estimated CRCL calculation 100 ml/min; Estimated Glomerular Filt Rate 53; Glucose 93 mg/dL (65-110); Potassium 3.8 mmol/L (3.4-5.0); Sodium 139 mmol/L (137-145); Total Protein 8.4 g/dL (6.3-8.2)
[2025-03-20 21:08] LABS: BEDSIDEPREGUCG Negative (Negative)
[2025-03-20 21:19] LABS: Add Urine Microscopic? YES; Appearance Urine Clear (Clear); Glucose Urine UA Negative (Negative); Leukocyte Esterase Ur Negative LEU/UL (Negative); Need Manual Microscopic Reviewed; Nitrate Urine Negative (Negative); Specific Grav Ur 1.026 (1.001-1.035)
--- OUTSIDE RECORDS SUMMARY | 2025-03-20 21:20 | XMS_ITS | Encounter Summary ---
Author Organization 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 Gender Identity Not on file Sexual Orientation Not on file documented as of this encounter Plan of Treatment Not on file documented as of this encounter Visit Diagnoses Not on filedocumented in this encounter Additional Health Concerns Infection Onset Date Last Indicated Resolved Time COVID: Suspected 02/14/2023 02/14/2023 02/14/2023 2:34 PM CALCULUS PROFESSOR COVID: Suspected 04/09/2023 04/09/2023 04/09/2023 11:05 PM CALCULUS PROFESSOR documented as of this encounter Care Teams Carpenter Prototype Relationship Specialty Start Date End Date Samantha Olsen PA PCP - General Family Medicine 12/13/21 01/28/23 Fatuma Theodore NP [address] [facility] [address] [place] [address] [place] [id number] PCP - General Family Medicine 01/29/23 04/08/23 Garrett Sanders MD [address] [facility] [address] [place] [address] [place] [id number] PCP - General Family Medicine 04/09/23 documented as of this encounter
--- OUTSIDE RECORDS SUMMARY | 2025-03-20 21:20 | XMS_ITS | Data Portability ---
Author Organization [facility] Address [address] [place] [address] Assessment Encounter Date Assessment Date Assessment LastModified [...] recorded. Lab hsv-2 igg Ab, serum 2023 [facility] (Lab), [address] [place], [address], 4 02:06:20 hbcab (hepatitis B core Ab) igm, serum 2023 024 [facility] (Lab), [address] [place], [address], 4 02:06:20 HBsAg (hepatitis B surface Ag), serum 2023 024 [facility] (Lab), [address] [place], [address], 4 02:06:17 hepatitis C virus Ab, serum 2023 024 [facility] (Lab), [address], [place], [address], 4 02:06:18 HIV 1+2 AB + HIV 1 p24 Ag, qualitative immunoassay , serum 2023 024 [facility] (Lab), [address], [place], [address], 4 02:06:17 RPR (rapid plasma reagin), serum 2023 024 [facility] (Lab), [address], [place], [address], 4 02:06:20 CBC w/ auto diff 2023 024 [facility] (Lab), [address], [place], [address], 4 02:06:16 dhea-sulfat e, serum 2023 024 [facility] (Lab), [address], [place], [address], 4 02:06:17 hormone panel, serum or plasma 2023 024 [facility] (Lab), [address], [place], [address], 4 02:06:19 progesteron e, serum 2023 024 [facility] (Lab), [address], [place], [address], 4 02:06:18 prolactin, serum 2023 024 [facility] (Lab), [address], [place], [address], 4 02:06:18 shbg (sex hormone-bin ding globulin), serum 2023 024 [facility] (Lab), [address] [facility], [place], [address], 4 02:06:18 TSH, serum or plasma 2023 024 [facility] (Lab), [address], [place], [address], 4 02:06:19 testosteron e free/testos terone total, ratio, serum 2023 024 [facility] (Lab), [address], [place], [address], 4 02:06:20 urinalysis, dipstick 2022 023 [email or web address], [address], [place], [address], 3 11:45:12 Referral None recorded. Procedures None recorded. Surgeries laparoscopy , diagnostic (SURG) 2024 025 [id number], [facility] [address], [place], [address], 5 14:34:35 Imaging US, pelvis 2023 024 [email or web address] [place], [address], [address], [place], [address], 4 20:23:49 US, transvagina l 2023 024 [email or web address], [address], [place], [address], 4 20:23:49 Medication Orders Macrobid 100 mg capsule 2022 023 [facility] [place] [id number], [address], [place], [id number], 4 16:18:20 Patient TargetsNo targets recorded. Patient InstructionsNo instructions recorded. Reason for Referral None Reported. Results Created Date Observation Date Name Description Value Unit Range Abnormal Flag Note LastModifiedBy Organization Detail LastModifiedTime 10/12/19 23 10/11/2022 IMAGE GUIDE D PAP, REFLE X HPV IF ASCUS ONLY image guided Pap, reflex HPV ASCUS only SEE RESULT S BELOW CASE REPOR T: Cytol ogy Gynec ologi clifford Repor t Case: [id number] Autho jaky bajwa Provi sosa: Librado donaldson , Rose Haro cted: 10/11 1338 [facility] Order ing Locat ion: [place] [facility] log[facility] [...] osis. Elect jeet suarez jennifer d by Manjinder gaston, Carlito wright, [place] on 2022 at 6:52 PM ----- ----- ----- ----- ----- ----- ----- ----- ----- ----- ----- ----- ----- ----- ----- ----- ----- ---- COMME NT: This speci men was revie wed by a Cytot echno logis t and/o r Patho logis t (as indic ated in this repor t) after evalu ation using the Thinp rep Imagi ng Syste m. CLINI CLIFFORD INFOR MATIO N: Menst rual Statu s: LMP (if appli cable ): Clini clifford Histo ry/Pr eviou s Pap: Type of Neopl parish (if appli cable ): Signi fican t Clini clifford Findi ngs: Other Histo ry: Hormo sary [...] ng do not corre late with physi clifford and/o r histo rical findi ngs, furth er inves tigat ion is recom valentín d, as clini karli trujillo nted. Not Available [facility] (Lab) [address] [facility], [place], [address], 10/13/2022 19:56:22 10/12/19 23 10/11/2022 TRICH OMONA S VAGIN CUCA (RRNA ) trichomonas vaginalis ribosomal RNA (rrna) Negati ve negati ve Not Available [facility] (Lab) [address] [place], [address], 10/13/2022 19:56:23 10/12/19 23 10/11/2022 CT/GC (STEFANY) , THINP REP VIAL chlamydia trachomatis, PCR Negati ve negati ve Not Available [facility] (Lab) [address] [place], [address], 10/13/2022 19:56:24 10/12/19 23 10/11/2022 CT/GC (STEFANY) , THINP REP VIAL neisseria gonorrhoeae, PCR Negati ve negati ve Not Available [facility] (Lab) [address], [place], [address], 10/13/2022 19:56:24 10/12/19 23 10/11/2022 urina lysis , dipst ick Protein trace Not Available [facility] [address], [place], [address], 10/11/2022 11:34:25 10/12/19 23 10/11/2022 urina lysis , dipst ick pH 5 Not Available [facility] [address], [place], [address], 10/11/2022 11:34:25 10/12/19 23 10/11/2022 urina lysis , dipst ick Specific [place] 1.015 Not Available [facility] [address], [place], [address], 10/11/2022 11:34:25 03/12/20 24 03/12/2024 CT/GC AND TRICH OMONA S VAGIN CUCA (RRNA ), URINE chlamydia trachomatis, PCR Negati ve negati ve Not Available [facility] (Lab) [address], [place], [address], 03/13/2024 13:33:23 03/12/20 24 03/12/2024 CT/GC AND TRICH OMONA S VAGIN CUCA (RRNA ), URINE neisseria gonorrhoeae, PCR Negati ve negati ve Not Available [facility] (Lab) [address], [place], [address], 03/13/2024 13:33:23 03/12/20 24 03/12/2024 CT/GC AND TRICH OMONA S VAGIN CUCA (RRNA ), URINE trichomonas vaginalis ribosomal RNA (rrna) Negati ve negati ve Not Available [facility] (Lab) [address], [place], [address], 03/13/2024 13:33:23 03/12/20 24 03/12/2024 CBC W/DIF F WBC 10.2 10'3/ uL 3.5-10 .5 Not Available [facility] (Lab) [address], [place], [address], 03/18/2024 02:06:16 03/12/20 24 03/12/2024 CBC W/DIF F RBC 4.76 10'6/ uL (based on docume nted legal sex) 3.80-5 .20 Not Available [facility] (Lab) [address], [place], [address], 03/18/2024 02:06:16 03/12/20 24 03/12/2024 CBC W/DIF F HGB 15.1 g/dL (based on docume nted legal sex) 11.6-1 5.4 Not Available [facility] (Lab) [address], [place], [address], 03/18/2024 02:06:16 03/12/20 24 03/12/2024 CBC W/DIF F HCT 46.6 % (based on docume nted legal sex) 34.0-4 5.0 high Not Available [facility] (Lab) [address], [place], [address], 03/18/2024 02:06:16 03/12/20 24 03/12/2024 CBC W/DIF F MCV 97.9 fL 80.0-9 9.0 Not Available [facility] (Lab) [address], [place], [address], 03/18/2024 02:06:16 03/12/20 24 03/12/2024 CBC W/DIF F MCH 31.7 pg 27.0-3 4.0 Not Available [facility] (Lab) [address], [place], [address], 03/18/2024 02:06:16 03/12/20 24 03/12/2024 CBC W/DIF F MCHC 32.4 g/dL 32.0-3 5.5 Not Available [facility] (Lab) [address], [place], [address], 03/18/2024 02:06:16 03/12/20 24 03/12/2024 CBC W/DIF F RDW 12.9 % 11.0-1 5.0 Not Available [facility] (Lab) [address], [place], [address], 03/18/2024 02:06:16 03/12/20 24 03/12/2024 CBC W/DIF F plt 419 10'3/ uL 150-40 0 high Not Available [facility] (Lab) [address], [place], [address], 03/18/2024 02:06:16 03/12/20 24 03/12/2024 CBC W/DIF F MPV 10.5 fL 8.8-12 .1 Not Available [facility] (Lab) [address], [place], [address], 03/18/2024 02:06:16 03/12/20 24 03/12/2024 CBC W/DIF F NRBC's 0.0 % 0.0 Not Available [facility] (Lab) [address], [place], [address], 03/18/2024 02:06:16 03/12/20 24 03/12/2024 CBC W/DIF F absolute NRBCs 0.0 10'3/ uL no refere nce range establ ished Not Available [facility] (Lab) [address], [place], [address], 03/18/2024 02:06:16 03/12/20 24 03/12/2024 CBC W/DIF F neutrophils 62.8 % 34.0-7 3.0 Not Available [facility] (Lab) [address], [place], [address], 03/18/2024 02:06:16 03/12/20 24 03/12/2024 CBC W/DIF F lymphocytes 24.6 % 15.0-5 0.0 Not Available [facility] (Lab) [address], [place], [address], 03/18/2024 02:06:16 03/12/20 24 03/12/2024 CBC W/DIF F monocytes 9.7 % 1.0-15 .0 Not Available [facility] (Lab) [address], [place], [address], 03/18/2024 02:06:16 03/12/20 24 03/12/2024 CBC W/DIF F eosinophils 1.4 % 0.0-8. 0 Not Available [facility] (Lab) [address], [place], [address], 03/18/2024 02:06:16 03/12/20 24 03/12/2024 CBC W/DIF F basophils 1.0 % 0.0-2. 0 Not Available [facility] (Lab) [address] [facility], [place], [address], 03/18/2024 02:06:16 03/12/20 24 03/12/2024 CBC W/DIF F immature granulocytes 0.5 % no define d refere nce range Not Available [facility] (Lab) [address] [place], [address], 03/18/2024 02:06:16 03/12/20 24 03/12/2024 CBC W/DIF F absolute neutrophils 6.4 10'3/ uL 1.5-8. 0 Not Available [facility] (Lab) [address] [place], [address], 03/18/2024 02:06:16 03/12/20 24 03/12/2024 CBC W/DIF F absolute lymphocytes 2.5 10'3/ uL 1.0-4. 0 Not Available [facility] (Lab) [address] [facility], [place], [address], 03/18/2024 02:06:16 03/12/20 24 03/12/2024 CBC W/DIF F absolute monocytes 1.0 10'3/ uL 0.2-1. 0 Not Available [facility] (Lab) [address] [facility], [place], [address], 03/18/2024 02:06:16 03/12/20 24 03/12/2024 CBC W/DIF F absolute eosinophils 0.1 10'3/ uL 0.0-0. 6 Not Available [facility] (Lab) [address] [facility], [place], [address], 03/18/2024 02:06:16 03/12/20 24 03/12/2024 CBC W/DIF F absolute basophils 0.1 10'3/ uL 0.0-0. 3 Not Available [facility] (Lab) [address] [facility], [place], [address], 03/18/2024 02:06:16 03/12/20 24 03/12/2024 CBC W/DIF [...] resul ts are expec carol. Not Available [facility] (Lab) [address] [facility], [place], [address], 03/18/2024 02:06:16 03/12/20 24 03/12/2024 HEPAT ITIS B SURFA CE ANTIG EN hepatitis B surface antigen Non-re active non-re active This assay was perfo rmed using [employer] ratio n reage nts and test kits. Value s obtai cora with other assay metho ds or kits canno t be used inter daily eably . Not Available [facility] (Lab) [address], [place], [address], 03/18/2024 02:06:17 03/12/20 24 03/12/2024 HIV 1/2 ANTIG EN/AN TIBOD Y, REFLE X CONFI RMATI ON HIV antigen/anti body Nonrea ctive nonrea ctive HIV-1 antig en and HIV-1 /HIV- 2 antib odies were not detec carol. No labor atory evide nce of HIV infec tion. Not Available [facility] (Lab) [address], [place], [address], 03/18/2024 02:06:17 03/12/20 24 03/12/2024 DHEA SULFA TE DHEA-sulfate 144 ug/dL Femal e Range s Age(y ) Range (ug/d L) 10-15 34-28 0 15-20 65-36 8 20-25 148-4 07 25-35 99-34 0 35-45 61-33 7 45-55 35-25 6 55-65 19-20 5 65-75 9-246 > 75 12-15 4 Not Available [facility] (Lab) [address], [place], [address], 03/18/2024 02:06:17 03/12/20 24 03/12/2024 HEPAT ITIS C ANTIB ANIKET SCREE N, REFLE X TO CONFI RMATI ON hepatitis C antibody Non-re active non-re active Antib odies to HCV Not Detec carol, does not exclu de the possi bilit y of expos ure to HCV. Not Available [facility] (Lab) [address], [place], [address], 03/18/2024 02:06:18 03/12/20 24 03/12/2024 HUMAN SEX HORMO NE HANNAH NG GLOBU [place] sex hormone binding globulin 16.8 nmole s/L 18.2-1 35.5 low Not Available [facility] (Lab) [address], [place], [address], 03/18/2024 02:06:18 03/12/20 24 03/12/2024 PROLA CTIN prolactin, total 25.70 NG/mL 4.79-2 3.30 high This assay was perfo rmed using [employer] ratio n reage nts and test kits. Value s obtai cora with other assay metho ds or kits canno t be used inter [facility] . Not Available [facility] (Lab) [address] [place], [address], 03/18/2024 02:06:18 03/12/20 24 03/12/2024 PROGE STERO NE progesterone 6.69 NG/mL This assay was perfo rmed using [employer] ratio n reage nts and test kits. Value s obtai cora with other assay metho ds or kits canno t be used inter [facility] . Femal e Proge stero ne Range s: Folli cular phase 0.06- 0.89 ng/mL Ovula tion phase 0.12- 12.00 ng/mL Lutea l phase 1.83- 23.90 ng/mL Postm enopa usal <0.05 -0.13 ng/mL Healt hy Pregn ant Women 1st Trime ster 11.0- 44.30 2nd Trime ster 25.40 -83.3 0 3rd Trime ster 58.70 -214. 00 Not Available [facility] (Lab) [address] [place], [address], 03/18/2024 02:06:18 03/12/20 24 03/12/2024 FSH, LH, ESTRA DIOL estradiol 95.5 pg/mL This assay was perfo rmed using [employer] n reage nts and test kits. Value s obtai cora with other assay metho ds or kits canno t be used inter [facility] . Femal e Estra diol Range s: Folli cular phase 12.4- 233 pg/mL Ovula tion phase 41.0- 398 pg/mL Lutea l phase 22.3- 341 pg/mL Postm enopa usal <5-13 8 pg/mL Healt hy Pregn ant Women 1st Trime ster 154-3 243 pg/mL 2nd Trime ster 1561- 82968 pg/mL 3rd Trime ster 8525- >3000 0 pg/mL Not Available [facility] (Lab) [address] [facility], [place], [address], 03/18/2024 02:06:19 03/12/20 24 03/12/2024 FSH, LH, [...] use: 25.8- 134.8 mIU/m L Not Available [facility] (Lab) [address] [facility], [place], [address], 03/18/2024 02:06:19 03/12/20 24 03/12/2024 FSH, LH, [...] use: 7.7-5 8.5 mIU/m L Not Available [facility] (Lab) [address] [place], [address], 03/18/2024 02:06:19 03/12/20 24 03/12/2024 T4 FREE T4, free 0.77 NG/dL 0.60-1 .40 This assay is susce ptibl e to inter feren ce from high level s of bioti n which may false ly eleva te resul ts. Belinda e ev late with clini clifford findi ngs. Not Available [facility] (Lab) [address] [facility], [place], [address], 03/18/2024 02:06:19 03/12/20 24 03/12/2024 TSH, REFLE X FREE T4 TSH 101.21 uIU/m L 0.30-5 .33 high Not Available [facility] (Lab) [address] [place], [address], 03/18/2024 02:06:19 03/12/20 24 03/12/2024 HERPE S SIMPL EX VIRUS TYPE 2 SPECI FIC AB, IGG herpes simplex virus 2 IgG Negati ve negati ve Not Available [facility] (Lab) [address] [facility], [place], [address], 03/18/2024 02:06:20 03/12/20 24 03/12/2024 HERPE S SIMPL EX VIRUS TYPE 2 SPECI FIC AB, IGG herpes simples virus 2 IgG, quant <0.2 ai 0.0-0. 8 Not Available [facility] (Lab) [address] [place], [address], 03/18/2024 02:06:20 03/12/20 24 03/12/2024 HEPAT ITIS B CORE, IGM hepatitis B core IgM antibody Non-re active non-re active IgM anti- HBc not detec carol. Does not exclu de the possi bilit y of expos ure to or infec tion with HBV. Not Available [facility] (Lab) [address] [place], [address], 03/18/2024 02:06:20 03/12/20 24 03/12/2024 RPR SCREE N, REFLE X TITER /CONF IRMAT ION RPR screen Nonrea ctive nonrea ctive Not Available [facility] (Lab) [address] [place], [address], 03/18/2024 02:06:20 03/12/20 24 03/12/2024 TESTO STERO NE, FREE( DIALY SIS) AND TOTAL (LC/M S/MS) testosterone , total 26 NG/dL 2-45 For addit ional infor belinda oliva e refer to http: //nori hancock.que stdia gnost ics.c om/fa q/ Total Testo stero neLCM SMSFA Q165 (This link is being provi ded for infor matalicia nal/ educa diana l purpo ses only. ) This test was devel oped and its genia tical perfo rmanc e nasra cteri stics have been deter mined by [employer] [place]. It has not been clear ed or appro thu by the U.S. Food and Drug Admin istra tion. This assay has been valid ated pursu ant to the CLIA regul ation s and is used for clini clifford purpo ses. Not Available [facility] (Lab) [address] [facility], [place], [address], 03/18/2024 02:06:20 03/12/20 24 03/12/2024 TESTO STERO NE, FREE( DIALY SIS) AND TOTAL (LC/M S/MS) testosterone , free 5.1 pg/mL 0.1-6. 4 This test was devel oped and its genia tical perfo rmanc e nasra cteri stics have been deter mined by [employer] Brian [place]. It has not been clear ed or appro thu by the U.S. Food and Drug Admin istra tion. This assay has been valid ated pursu ant to the CLIA regul ation s and is used for clini clifford purpo ses. Perfo rming Organ [facility] dem[facility] n: Site ID: AMD Name: [employer] Brian ls Insti annika Addre ss: [id number] [facility] [employer] Happ[employer] [place], [place] Direc tor: Allegra Archibald MD PhD Not Available [facility] (Lab) [address] [facility], [place], [address], 03/18/2024 02:06:20 03/27/20 24 03/27/2024 PLATE LET COUNT plt 416 10'3/ uL 150-40 0 high Not Available [facility] (Lab) [address] [facility], [place], [address], 03/28/2024 05:46:43 03/27/20 24 03/27/2024 TSH TSH 81.15 uIU/m L 0.30-5 .33 high Not Available [facility] (Lab) [address] [facility], [place], [address], 03/28/2024 05:46:44 02/14/20 24 02/14/2024 US, pelvi s No observ ation record ed. [email or web address], [place], [address], 02/14/2024 18:05:32 02/14/20 24 02/14/2024 US, victoria hart No observ ation record ed. [email or web address] , [place], [address], 02/14/2024 18:05:41 02/14/20 24 02/14/2024 US, pelvi s No observ ation record ed. [email or web address] Nereida [address] [place] [address], [place], [address], 02/14/2024 20:20:04 Result Notes None recorded. Problems Name Problem SNOMED Code Status Onset Date Resolution Date Notes Provider Name and Address Organization Details Recorded Time Finding of pattern of menstrua l cycle Completed 201509/22/2021 Menometro rrhagia;R ecorded Elsewhere : No Locati on: [facility] So urce: EHR Chron ic: N Practic e ID: [id number] Bill able Time: 10:30:00 AM Tanika Silver null, [facility] 2 15:03:[address] Concept Completed 201709/22/2021 Encntr for routine child health exam w/o abnormal findings; Recorded Elsewhere : No Locati on: [facility] So urce: EHR Chron ic: N Practic e ID: [id number] Bill able Time: 10:30:00 AM Tanika boyce [facility] 2 15:03:31 Localize d swelling , mass and lump, neck Completed 201709/22/2021 Localized swelling, mass and lump, neck;Raghavendra rded Elsewhere : No Locati on: [facility] So urce: EHR Chron ic: N Practic e ID: [id number] Bill able Time: 10:30:00 AM Tanika Silver [facility] 2 15:03:[address] Concept Completed 201709/22/2021 Well woman check w/o abnormal finding;R ecorded Elsewhere : No Locati on: [facility] So urce: EHR Chron ic: N Practic e ID: [id number] Bill able Time: 10:30:00 AM Tanika boyce [facility] 2 15:03:31 Pelvic and perineal pain [id number] Completed 201709/22/2021 Pelvic and perineal pain;Raghavendra rded Elsewhere : No Locati on: [facility] So urce: EHR Chron ic: N Practic e ID: [id number] Bill able Time: 11:00:00 AM Tanika Silver [facility] 2 15:03:31 Insertio n of intraute rine contrace ptive device Completed 201709/22/2021 Encounter for insertion of intrauter ine contracep tive device;Re corded Elsewhere : No Locati on: [facility] So urce: EHR Chron ic: N Practic e ID: [id number] Bill able Time: 01:30:00 PM Tanika Silver [facility] 2 15:03:32 Contrace ptive sheath status [id number] Completed 201809/22/2021 Encounter for routine checking of intrauter ine contracep tive device;Re corded Elsewhere : No Locati on: [facility] So urce: EHR Chron ic: N Practic e ID: [id number] Bill able Time: 09:45:00 AM Tanika Anne [facility] 2 15:03:31 Syphilis test finding [id number] Completed 201809/22/2021 Encounter for STD screening ;Recorded Elsewhere : No Locati on: [facility] So urce: EHR Chron ic: N Practic e ID: [id number] Bill able Time: 01:15:00 PM Tanika Anne [facility] 2 15:03:32 Problem Notes None recorded. Procedures Surgical History Date Name Laterality Status Provider Name and Address Organization Details Recorded Time 3 Date of Last Pap Smear completed Kerri Delaney [facility] 03/12/2024 16:19:24 9 Thyroid Surgery completed Purnima Wallace [facility] 03/14/2022 17:28:33 Imaging Results None recorded. [...] C e: Yes Loca tion: Jessica garcia [facility] [place] odify By: marcelina hernadez DateTime : 05/20/19 [...] Prescrib ed Elsewher e: No Locat ion: [facility] odify By: janelle weir DateTime : 10/25/19 [...] Prescrib ed Elsewher e: No Locat ion: [facility] odify By: [email or web address] Garcia ncounter DateTime : 11/17/19 16 04:30:01 PM Not Available Not Available Not Available Lomedia 24 Fe 1 mg-20 mcg (24)/75 mg (4) tablet TAKE 1 TABLET BY ORAL ROUTE EVERY DAY 02/27 completed Prescrib ed Elsewher e: No Locat ion: [facility] odify By: janelle Garcia ncounter DateTime : 09/05/19 17 02:10:48 PM Not Available Not Available Not Available Vraylar 1.5 mg capsule 09/22 completed Not Available Not Available Not Available Vraylar 3 mg capsule TAKE 1 CAPSULE BY MOUTH DAILY 09/22 completed Not Available Not Available Not Available Vitals Date Recorded Body height Body mass index (BMI) Body weight Systolic And Diastolic Provider Name and Address Organization Details Last Updated DateTime 04/09/2024 175.26 cm 41.6 kg/m2 009420.05 g 136/86 mm[Hg] Tami Dubose [facility] 04/09/2024 16:37:02 Date Recorded Body height Body mass index (BMI) Body weight Systolic And Diastolic Provider Name and Address Organization Details Last Updated DateTime 10/11/2022 175.26 cm 46.1 kg/m2 311365.82 g 115/75 mm[Hg] Kerri Delaney [facility] 10/11/2022 11:30:12 Date Recorded Body height Body mass index (BMI) Body weight Systolic And Diastolic Provider Name and Address Organization Details Last Updated DateTime 03/12/2024 175.26 cm 40.3 kg/m2 910604.72 g 132/86 mm[Hg] Kerri Delaney [facility] 03/12/2024 16:17:16 Social History Question Answer Notes LastModified by Organizat ion Details LastModified Time Tobacco Smoking Status Never Smoker Purnima Wallace [facility] 03/14/2022 17:28:01 Are You Blind Or Do You Have Difficulty Seeing? No [email or web address] Information n ot available 03/14/2022 What Is Your Level Of Caffeine Consumption? Occasional [email or web address] Information not available 03/14/2022 In The 14 Days Before Symptom Onset, Have You Had Close Contact With A Laboratory-confirm ed COVID-19 While That Case Was Ill? No [email or web address] Information n ot available 03/14/2022 In The 14 Days Before Symptom Onset, Have You Had Close Contact With A Person Who Is Under Investigation For COVID-19 While That Person Was Ill? No Information not available 03/14/2022 Have You Been To An Area Known To Be High Risk For COVID-19? No [email or web address] Information not available 03/14/2022 Are You Deaf Or Do You Have Serious Difficulty Hearing? No [email or web address] Information not available 03/14/2022 What Type Of Diet Are You Following? REGULAR [email or web address] Information n ot available 03/14/2022 Have You Ever Been Counseled For Unhealthy Alcohol Use? No [email or web address] Information not available 03/14/2022 Do You Use Your Seat Belt Or Car Seat Routinely? Yes [email or web address] Information not available 03/14/2022 Do You Have Smoke And Carbon Monoxide Detectors In Your Home? Yes [email or web address] Information not available 03/14/2022 Do You Use Sunscreen Routinely? Yes [email or web address] Information not available 03/14/2022 Has Tobacco Cessation Counseling Been Provided? No [email or web address] Information not available 03/14/2022 Do You Have Difficulty Walking Or Climbing Stairs? No [email or web address] Information not available 03/14/2022 Sex: Unknown Functional Status Question Answer Note LastModified by Organizat ion Details LastModified Time Do you use any illicit or recreational drugs? No [email or web address] Information not available 03/14/2022 Do you or have you ever used any other forms of tobacco or nicotine? No [email or web address] Information not available 03/14/2022 What is your level of alcohol consumption? Occasional [email or web address] Information not available 03/14/2022 Are you able to walk independently without assistance or assistive devices? YESWOREST [email or web address] Information not available 03/14/2022 Are you able to care for yourself independently? Yes Information not available 03/14/2022 Do you have difficulty dressing, bathing, grooming, or toileting? No [email or web address] Information not available 03/14/2022 What is your exercise level? Occasional [email or web address] Information not available 03/14/2022 Mental Status Question Answer Note LastModified by Organization D etails LastModified Time Do you feel stressed (tense, restless, nervous, or anxious, or unable to sleep at night)? [id number] [email or web address] Information not available 03/14/2022 Family History Relationship Description Onset Age of this Age Resolved Age Notes LastModified by Organization Details LastModified Time Mother Asthma [email or web address] Not available 11/26/2019 16:58:51 Paternal Grandfather Diabetes mellitus [email or web address] Not available 11/25 16:59:00 Paternal Grandfather Hypertensive disorder Not available 11/25 16:59:09 Paternal Grandfather Heart disease [email or web address] Not available 11/25 16:59:22 Paternal Grandfather Malignant neoplasm of colon Not available 11/25 16:59:34 Maternal Grandmother Heart disease [email or web address] Not available 11/25 16:59:55 Maternal Grandmother Hypertensive disorder [email or web address] Not available 11/25 17:00:08 Maternal Grandfather Heart disease [email or web address] Not available 11/25 17:00:21 Father Asthma [email or web address] Not available 11/26/2019 17:00:34 Paternal Grandmother Malignant neoplasm of breast [email or web address] Not available 2024 16:37:55 Medical History Condition [...] Diagnosis SNOMED-CT Code Diagnosis ICD10 Code Diagnosis IMO Codes Diagnosis Note [id number] Magali Gleason [facility] [address],[place] [address] 03/23/2023 13:50:24 03/27/2023 09:10:53 [id number] [facility] [address] [place] [address] 09/22/2021 15:31:57 09/23/2021 15:52:47 Gynecologic examination [id number] Z01.419 Take Calcium with Vitamin D 1200mg [...] Screen naRoutine Labs na Pain in pelvis 07865718 R10.2 Today we agreed to update vaginal [...] All questions answered to patient satisfacti on. [id number] Cristian Ruelas MD [facility] [address] [address] 09/27/2021 16:41:33 09/27/2021 17:24:05 Pain in pelvis 58038111 R10.2 [id number] [facility] [address] [address] 10/06/2021 15:30:10 10/06/2021 16:12:13 Pain in pelvis 26502617 R10.2 Reviewed US which was wnl.Her pelvic pain sx's have resolvedPo ssible cyst had ruptured prior to USMonitor for now Malaise and fatigue 5823 58255 R23.2 Voices that she is generally not [...] taken today.Offe red to drive her to [facility].S he declined.V oices that she feels she can drive herself.Sh radha has food in the car as well & states she will eat a few bites & finish the water given.Her exam was wnl except for her presentati on flushing, fatigue, profuse sweating.I again offered to arrange sharyn brannon to hospital for full evaluation and she declined but is agreeable to going herself. Time spent in visit is a total of 25 mins with at least 50% of visit consisting of counseling and review of plan of care. [id number] Magali Gleason [facility] [address],[place] [address] 11/23/2021 16:35:11 11/23/2021 17:11:18 Vaginitis 31861116 N76.0 Suspect BV & yeastWill treat for BV & yeastCall if sx's worsenIf swab was sent will be notified via portal unless otherwise indicated. Time spent in visit is a total of 15 mins with at least 50% of visit consisting of counseling and review of plan of care. [id number] [facility] [address],[place] [address] 03/14/2022 17:01:44 03/15/2022 15:51:39 Urinary symptoms 042173496 R39.9 Vaginitis 40013242 N76.0 Suspect yeastWill treat yeastCall if sx's worsenIf swab was sent will be notified via portal unless otherwise indicated. Counseling /Therapist resources given including psychology today.LawnStarter Time spent in visit is a total of 15 mins with at least 50% of visit consisting of counseling and review of plan of care. [id number] Magali Gleason [facility] [address],[facility] [place] [address] 10/11/2022 11:18:54 10/11/2022 11:49:53 Dysuria 98221031 R30.0 Suspect UTISent cultureTre atedCounse led on medication R/B's, Most common side effects, & use. All questions were answered to patient satisfacti on. Gynecologi c examination [id number] Z01.419 Take Calcium with Vitamin D 1200mg [...] c Screen discussedC olon Screen naDexa [facility] [place] [facility] [id number] Cristian Ruelas MD [facility] [address],[place] [address] 02/14/2024 16:57:53 02/14/2024 17:33:10 Pain in pelvis 42114788 R10.2 [id number] Cristian Ruelas MD [facility] [address],[place] [address] 03/12/2024 15:30:34 03/13/2024 09:49:23 Pain in pelvis 37829976 R10.2 23-year-ol d female with multiple concerns. [...] hemorrhage and infection. Abnormal u terine bleeding [id number] 9100 N93.9 Sexually t ransmitted infectious disease 3778016 A64 [id number] Cristian Ruelas MD [facility] [address] [address] 04/09/2024 16:07:43 04/11/2024 14:25:38 Pain in pelvis 75689555 R10.2 this patient is a 23-year-ol d [...] Recorded Advance Directives Directive None Recorded Payers Insurance Date Sequence Insurance Name Policy Number Policy Kelsey Covered Member ID Kelsey Member ID Guarantor Name 04/14/2024 [place] [facility] Mervat E Werner [id number] Mervat E Werner 04/14/2024 1 *SELF PAY* Dc vivien E Werner 05/28/2024 1 [place] [facility] Mervat E Werner [id number] Mervat E Werner 04/03/2024 1 [facility] - DOS ON OR AFTER 20 (MEDICAID REPLACEMENT - HMO) Mervat Werner [id number] Mervat E Werner Notes Date Note Type Note Provider Name and Address Organization Details Recorded Time 10/12/19 23 text/ht ml Annual GYNReported by PatientGenitourinary symptomsFor urinary symptoms, patient reportsburning sensation during urinationandincreased urinary frequencybut reportsno hematuriaandno incontinence. For menstrual cycle, patient reportsnormal menses (light and not every month with mirena iud). For vulva, patient reportsno genital lesion. For vagina, patient reportsnormal vaginal discharge.Breast symptomsFor breast, patient reportsno breast pain,no breast lump, andno nipple discharge.ContraceptionFor current contraception, patient reportssatisfied with current contraceptionandintrauterine device (iud).Endocrine symptomsFor sexual complaints, patient reportsno sexual complaints,no pain during intercourse, andnormal libido. For menopausal symptoms, patient reportsno menopausal symptomsandnormal vaginal lubrication.Psychological symptomsFor psychological symptoms, patient reportsno depression,no anxiety, andno pmdd.Preventative measuresFor preventive measures, patient reportsencourage self breast examination,encourage regular exercise,encourage no tobacco use,encourage regular mammograms starting age 40, andfollowed with yearly pap smears. Magali Gleason, BRENDAN-BC [address], [place], [address], [facility] 10/11/2022 11:48:59 03/12/20 24 text/ht ml 23-year-old female with multiple concerns. Her main concern [...] hemorrhage and infection. Cristian Ruelas MD [address], [place], [address], [facility] 03/12/2024 19:07:15 04/09/19 25 text/ht ml 23-year-old female with multiple concerns. Her main concern [...] hemorrhage and infection. Cristian Ruelas MD [address], [place], [address], [facility] 04/10/2024 22:44:59 OBGyn Episode No OBEpisode recorded.
--- OUTSIDE RECORDS SUMMARY | 2025-03-20 21:20 | XMS_ITS | Encounter Summary ---
Author Organization [facility] Healthcare Address [address] [place] [address] Care Team Providers Care Wire Winding Machine Tender Name Role Phone Garrett Sanders MD Primary Care Provider [phone] Reason for Visit * Reason Onset Date Comments missed appointment 03/17/2025 Encounter Details Date Type Department Care Team (Late st Contact Info) Description 03/17/2025 Telephone [facility] Medical Group Family Medicine at [address] [place] [address] Garrett Sanders MD [address] [place] [id number] missed appointment Social History Tobacco Use Types Packs/Day Years Used Date Smoking Tobacco: Every Day Cigarettes Last attempted to quit: 07/2021 Vaping Smokeless Tobacco: Never Alcohol Use Standard Drinks/Week Comments Not Currently 0 (1 standard drink = 0.6 oz pur e alcohol) occ PHQ-2 Answer Date Recorded PHQ-2 Total Score (If total score is 3 or more points, staff should administer the PHQ-9) 4 12/16/2024 PHQ-9 Answer Date Recorded PHQ-9 Total Score 8 12/16/2024 AUDIT-C Answer Date Recorded Q1: How often do you have a drink containing alcohol? Never 12/16/2024 Q2: How many drinks containi ng alcohol do you have on a typical day when you are drinking? Patient does not drink Q3: How often do you have si x or more drinks on one occasion? Never 12/16/2024 Personal Safety Answer Date Recorded Have you ever been in or are you currently in a harmful physical or emotional relationship or is someone making you feel afraid or unsafe? Denies 05/12/2024 Comments No Sex and Gender Information Value Date Recorded Sex Assigned at Not on file Legal Sex Female 5:33 AM JINRIKISHA DRIVER Gender Identity Not on file Sexual Orientation Not on file documented as of this encounter Miscellaneous Notes * Telephone Encounter - Janie Peres RN - 03/17/2025 3:20 PM CST Called and left for patient. She missed her appointment today. My chart message sent. IKISHA DRIVER documented in this encounter Plan of Treatment Not on file documented as of this encounter Visit Diagnoses Not on filedocumented in this encounter Care Teams Wire Winding Machine Tender Relationship Specialty Start Date End Date Garrett Sanders MD [address] [place] [address] [place] [address] PCP - General Family Medicine 04/09/23 documented as of this encounter
--- OUTSIDE RECORDS SUMMARY | 2025-03-20 21:20 | XMS_ITS | Encounter Summary ---
Author Organization [facility] Healthcare Address [address] [place] [address] Care Team Providers Care Biometrics Instructor Name Role Phone Samantha Olsen Primary Care Provider Fatuma Theodore NP Primary Care Provider [phone] Garrett Sanders MD Primary Care Provider [phone] Encounter Details Date Type Department Care Team (Late st Contact Info) Description 01/10/2022 Telephone [facility] OP Physical Therapy [facility] [address] [address] Rosalva Hurley, PT Social History [...] on file Legal Sex Female 5:33 AM ENGINEERING PROGRAM MANAGER Gender Identity Not on file Sexual Orientation Not on file documented as of this encounter Plan of Treatment Not on file documented as of this encounter Visit Diagnoses Not on filedocumented in this encounter Additional Health Concerns Infection Onset Date Last Indicated Resolved Time COVID: Suspected 02/14/2023 02/14/2023 02/14/2023 2:34 PM ENGINEERING PROGRAM MANAGER COVID: Suspected 04/09/2023 04/09/2023 04/09/2023 11:05 PM ENGINEERING PROGRAM MANAGER documented as of this encounter Care Teams Biometrics Instructor Relationship Specialty Start Date End Date Samantha Olsen PA PCP - General Family Medicine 12/13/21 01/28/23 Fatuma Theodore NP [address] [place] [address] [place] [address] PCP - General Family Medicine 01/29/23 04/08/23 Garrett Sanders MD [address] [place] [address] [place] [address] PCP - General Family Medicine 04/09/23 documented as of this encounter
--- OUTSIDE RECORDS SUMMARY | 2025-03-20 21:20 | XMS_ITS | Patient Health Record ---
Author Organization [facility] Address [address] [place] [address] Care Team Providers Care Public Service Representative Name Role Phone Olga CALIX, Rich Primary Care Provider Unavaila Les Low Unavailable [phone] Kerrie Coreas APRN Unavailable Unavailable Allergies Allergen (clinical drug ingredient) Drug/Non Drug Allergy documented on EMR Reaction Allergy Type Onset Date Status Adhesive tape (uncoded) Unknown Allergy Active amoxicillin Amoxicillin Unknown Drug Allergy Act donnie lactose Lactose Unknown Drug Allergy Active Reason For Referral No Information Social History Sex Assigned At : Social History Observation Description Sex Assigned At Female Plan Of Treatment No Information Insurance Providers Payer Name Payer Address Payer Phone Subscriber Number Group Number Insured Name Patient Relationship to Insured Coverage Start Date Coverage End Date r [address] [address] [place] [address] [id number] Mervat Caldera Self - patient is the insured Medical (General) History Medical History History ICD Code Binge eating disorder OCD Hx of thyroid cancer Suicidal ideation Arthritis Seizures Tachycardia HTN Hypothryroidism Depression Anxiety
--- OUTSIDE RECORDS SUMMARY | 2025-03-20 21:20 | XMS_ITS | Clinical Summary ---
Author Organization [facility] [employer] Address [address] [place] [address] Care Team Providers Care Sole Seamer Name Role Phone Berkley De La Paz MD Primary Care Provider [phone] Berkley De La Paz MD Unavailable [phone] Source Comments [facility],non-owned Affiliates and Associated Physician Practices is amultiple site organization consisting of ambulatory clinics and hospital sitesin [place], [place], [place] and [place]. This disclosure is being madepursuant to the Care Everywhere program and may not contain all information available regarding this patient. Last updated 17.[facility] Allergies Active Allergy Reactions Criticality Noted Date [...] on file Legal Sex Female 5:40 AM KILN FIRER Gender Identity Not on file Sexual Orientation [...] - 3-dose series) 12/26/2015 CHLAMYDIA/GONORRHEA SCREENING 2016 HEPATITIS C SCREENING 12/21/2018 DTAP/TDAP/TD VACCINES (1 - Tdap) 12/26/2019 HEPATITIS B VACCINE (1 of 3 - 19+ 3-dose series) 12/26/2019 DEPRESSION SCREENING 04/02/2024 COVID-19 VACCINE (1 - 2024-2 6 season) 2024 INFLUENZA VACCINE (#1) 2024 ZOSTER VACCINE (1 of 2) 2050 HIB VACCINE Aged Out No longer eligi ble based on patient's age to complete this topic MENINGOCOCCAL (Group B) VACC INE SHARED DECISION-MAKING Aged Out No longer eligibl e based on patient's age to complete this topic MENINGOCOCCAL GROUPS A/C/Y/W VACCINE Aged Out No longer eligible b ased on patient's age to complete this topic PNEUMOCOCCAL VACCINE Aged Out No long er eligible based on patient's age to complete this topic Insurance [facility] [place] [facility] MEDICAID - OUT OF STATE AET [facility] Address: [address] [address] [place] [address] MED[place]ID - [place] [facility] Care Teams Sole Seamer Relationship Specialty Start Date End Date Berkley De La Paz MD [address] [place] [address] PCP - General 04/11/18 Berkley De La Paz MD [address] [place] [address] Pediatrics 04/11/18
--- OUTSIDE RECORDS SUMMARY | 2025-03-20 21:20 | XMS_ITS | Clinical Summary ---
Author Organization [facility] Address [facility] [place] [address] Care Team Providers Care Automotive Service Management Teacher Name Role Phone Unavailable Primary Care Provider Unavailabl e Allergies Active Allergy Reactions Criticality Noted Date [...] Noted Date Diagnosed Date Papillary thyroid carcinoma 03/09/2021 Immunizations Immunization Administration Dates Next Due Comvax 12/30/2002,05/08/2001,03/12/2001 Dtap [...] Sex Assigned at Female 02/16/2021 2:40 PM LOFT WORKER PILE DRIVING Legal Sex Female 6:24 PM CDT Gender Identity Female 02/16/2021 2:40 PM LOFT WORKER PILE DRIVING Sexual Orientation Straight 02/16/2021 2: 40 PM LOFT WORKER PILE DRIVING Last Filed Vital Signs Vital Sign Reading Time Taken Comments Blood Pressure 146/83 04/11/2021 1:09 PM LOFT WORKER PILE DRIVING Pulse 87 04/11/2021 1:09 PM LOFT WORKER PILE DRIVING Temperature 36.2 C (97.1 F) 04/11/2021 1:09 PM LOFT WORKER PILE DRIVING Respiratory Rate 18 04/11/2021 1:09 PM LOFT WORKER PILE DRIVING Oxygen Saturation 98% 04/11/2021 1:09 PM LOFT WORKER PILE DRIVING Inhaled Oxygen Concentration - - Weight 108.9 kg (240 lb) 04/11/2021 1:09 PM LOFT WORKER PILE DRIVING Height 175.3 cm (5' 9) 04/11/2021 1:09 PM LOFT WORKER PILE DRIVING Body Mass Index 35.44 04/11/2021 1:09 PM LOFT WORKER PILE DRIVING Plan of Treatment Health Maintenance Due Date Last Done Comments Cervical Cancer Screening Pap Smear (Age 21 to 29) Every 3 Years 2000 Cervical Cancer Screening 2000 Annual Physical 12/26/2003 HPV Vaccines (2 - 2-dose series) 07/04/2011 01/02/2011 Pneumococcal Vaccine: Pediatrics (0 to 5 Years) and At-Risk Patients (6 to 49 Years) (1 of 2 - PCV) 12/26/2019 12/30/2002, 07/25/2001, 05/08/2001, Additional history exists COVID-19 Vaccine ( - 2024- season) 2024 Influenza Adult (#1) 2024 DTaP, Tdap and Td Vaccines (8 - Td or Tdap) 02/16/2030 02/17/2020, 01/02/2011, 10/01/2006, Additional history exists Hepatitis B Vaccines Completed 12/30/2002, 05/08/2001, 03/12/2001, Additional history exists Hepatitis A Vaccines Completed 02/02/2010, 01/13/20 09 Hepatitis C Completed 01/21/2021 Meningococcal B Vaccine Aged Out No l onger eligible based on patient's age to complete this topic Meningococcal Vaccine Aged Out No esa aby [...] VE NON-REACTI VE 01/21/2021 5:16 PM CDT [facility] 01/21/2021 3:03 PM CDT us Tamra Moran NP LABORATORY Final Result [facility] [address] [place] [address], [place] [phone] from Last 3 Months or Most Recently Relevant to Health Maintenance Insurance PILGER PILGER
--- OUTSIDE RECORDS SUMMARY | 2025-03-20 21:20 | XMS_ITS | Clinical Summary ---
Author Organization [facility] Address [address] [place] [address] Care Team Providers Care Ground Crew Supervisor Name Role Phone Garrett Sanders MD Primary Care Provider [phone] Allergies Active Allergy Reactions Criticality Noted Date Comments Amoxicillin Hives High 09/03/2021 Lactose Diarrhea Low 12/16/2024 Latex Rash Medium 05/10/2018 Added based on information entered during case entry, please review and add reactions, type, and severity as needed Added based on information entered during case entry, please review and add reactions, type, and severity as needed Medications triamcinolone (KENALOG) 0.1 % ointmentIndication s:Rash and nonspecific skin eruption Apply topically 2 (two) times a day as needed for rash Do not use on face or groin 454 g 3 10/08/19 22 Active albuterol HFA (ProAir HFA) 90 mcg/actuation inhalerIndications :SOB (shortness of breath) Inhale 2 puffs every 4 (four) hours as needed for wheezing or shortness of breath 3 each 4 11/19/19 22 Active levonorgestreL (Mirena) IUD Mirena 20 mcg/24 hours (8 yrs) 52 mg intrauterine device Take by intrauterine route. 03/22/20 13 Active lidocaine (LIDODERM) 5 % Place 1 patch on the skin daily for 5 days Remove & discard patch within 12 hours or as directed by MD. 5 patch 06/15/[address] (VOLTAREN) 75 mg EC tabletIndications: Acute pain of right knee,Chronic pain of right ankle,Right foot pain Take 1 tablet (75 mg total) by mouth 2 (two) times a day 60 tablet 2 11/26/19 24 Active valACYclovir (VALTREX) 1 gram tablet Take 2 tabs (2000 mg) 2 times a days for 1 day. 4 tablet 5 01/29/20 24 Active dicyclomine (BENTYL) 20 mg tablet Take 1 tablet (20 mg total) by mouth every 6 (six) hours 20 tablet 05/12/19 25 Active ondansetron ODT (ZOFRAN-ODT) 4 mg disintegrating tabletIndications: Nausea DISSOLVE 1 TABLET(4 MG) ON THE TONGUE EVERY 8 HOURS NEEDED FOR NAUSEA OR VOMITING 20 tablet 1 05/13/19 25 Active naproxen (NAPROSYN) 500 mg tablet Take 1 tablet (500 mg total) by mouth 2 (two) times a day as needed for pain 30 tablet 07/05/19 25 Active cyanocobalamin (vitamin B-12) 500 mcg tabletIndications: Prevention of Vitamin B12 Deficiency Take 1 tablet (500 mcg total) by mouth daily 90 tablet 3 07/15/19 25 026 Active riboflavin (Vitamin B-2) 100 mg tabletIndications: Riboflavin Deficiency Take 1 tablet (100 mg total) by mouth chief development officer before breakfast 90 tablet 3 07/16/19 25 026 Active cyclobenzaprine (FLEXERIL) 5 mg tablet Take 1 tablet (5 mg total) by mouth 2 (two) times a day as needed for muscle spasms 60 tablet 2 07/25/19 25 Active atenoloL (TENORMIN) 50 mg tabletIndications: Benign essential HTN Take 1 tablet (50 mg total) by mouth daily 90 tablet 3 07/25/19 25 026 Active linaCLOtide (Linzess) 290 mcg capsule Take 1 capsule (290 mcg total) by mouth chief development officer before breakfast 90 capsule 3 08/06/19 25 026 Active famotidine (PEPCID) 40 mg tabletIndications: Dyspepsia Take 1 tablet (40 mg total) by mouth 2 (two) times a day 180 tablet 3 08/08/19 25 Active hydrocortisone 2.5 % cream APPLY TOPICALLY TO THE AFFECTED AREA TWICE DAILY. 30 g 08/15/19 25 Active HYDROcodone-acetam inophen (NORCO) 5-325 mg per tablet TAKE 1 TABLET BY MOUTH EVERY 6 TO 8 HOURS NEEDED 06/27/19 25 Active levothyroxine (SYNTHROID) 200 mcg tabletIndications: Postoperative hypothyroidism Take 8 tabs all together , once a week, same day of the week 100 tablet 2 08/26/19 25 Active furosemide (LASIX) 20 mg tablet TAKE 1 TABLET(20 MG) BY MOUTH DAILY 30 tablet 10/24/19 25 Active phentermine (ADIPEX-P) 37.5 mg tabletIndications: Weight Loss Management for Obese Patient (BMI >= 30) Take 1 tablet (37.5 mg total) by mouth daily before breakfast 30 tablet 5 12/17/19 25 026 Active OLANZapine (ZyPREXA) 10 mg tabletIndications: Anxiety,Moderate episode of recurrent major depressive disorder (HCC) Take 1 tablet (10 mg total) by mouth nightly 30 tablet 12/17/19 25 Active sertraline (ZOLOFT) 100 mg tabletIndications: Anxiety,Moderate episode of recurrent major depressive disorder (HCC) Take 1 tablet (100 mg total) by mouth daily 100 tablet 12/17/19 25 Active traMADoL (ULTRAM) 50 mg tabletIndications: Arthralgia, unspecified joint Take 1 tablet (50 mg total) by mouth 2 (two) times a day as needed for pain 60 tablet 5 12/17/19 25 026 Active levothyroxine (SYNTHROID) 25 mcg tablet Take 1 tablet (25 mcg total) by mouth daily 90 tablet 4 12/17/19 25 Active pregabalin (LYRICA) 100 mg capsuleIndications :Arthralgia, unspecified joint Take 1 capsule (100 mg total) by mouth 3 times a day 90 capsule 2 12/17/19 25 Active Active Problems Problem Noted Date Diagnosed Date Severe obesity 07/24/2024 Body mass index 40.0-44.9, adult (CMS/HCC) 07/24 Memory loss 07/24/2024 Chronic constipation 07/10/2024 Overview (07/10/2024): Chronci. Uncontrolled with intermittent Rectal Bleeding. Already on lInzess and fiber supplements. Trial cipro/flagyl Acute pain of right knee 12/13/2023 Blepharitis of right upper eyelid 02/14/2023 Assessment & Plan (02/14/2023 2:58 PM LOAN REVIEW OFFICER): Warm compresses every 4-6 hours for 5-10 minutes Frequent handwashing, lid massage Doxycycline po 100 mg BID x 7 days. Sunscreen use advised. Topical erythromycin ER for worsening, pain, streaking redness, worsening swelling, vision impairment Upper respiratory tract infection 02/14/2023 Assessment & Plan (02/14/2023 2:59 PM LOAN REVIEW OFFICER): Rapid strep negative Rapid covid, flu negative [...] calories with body mass index (BMI) of 50.0 to 59.9 in adult 10/14/2021 Assessment & Plan (12/16/2024 11:52 AM CDT): Chronic. Uncontrolled. Goal: 180lb Recommend Nutritional every other Sunday Seminar. Recommended Medication Start Phentermine. Assessment & Plan (07/24/2024 4:43 PM CDT): [...] 5pm. Assessment & Plan (04/19/2023 12:26 PM LOAN REVIEW OFFICER): Recommended aggressive Lifestyle modification and weight loss [...] 08/30/2021 Assessment & Plan (03/12/2023 3:27 PM LOAN REVIEW OFFICER): Continue current levothyroxine dose. Will check thyroid function test and adjust levothyroxine dose accordingly. TSH goal lower normal Assessment & Plan (02/13/2022 2:37 PM LOAN REVIEW OFFICER): Continue current levothyroxine dose. Will check thyroid function test and adjust levothyroxine dose accordingly. 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 Syphilis contact 02/04/2019 Overview (04/19/2023): Encounter for STD screening;Recorded Elsewhere: No Location: [facility] Source: EHR Chronic: N Practice ID: [id number] Billable Time: 01:15:00 PM Contraceptive management 04/23/2018 Overview (04/19/2023): Encounter for routine checking of intrauterine contraceptive device;Recorded Elsewhere: No Location: [facility] Source: EHR Chronic: N Practice ID: [id number] Billable Time: 09:45:00 AM Pelvic and perineal pain 02/27/2018 Overview (04/19/2023): Pelvic and perineal pain;Recorded Elsewhere: No Location: [facility] Source: EHR Chronic: N Practice ID: [id number] Billable Time: 11:00:00 AM Menstrual cycle disorder 05/19/2015 Overview (04/19/2023): Menometrorrhagia;Recorded Elsewhere: No Location: [facility] Source: EHR Chronic: N Practice ID: [id number] Billable Time: 10:30:00 AM Irregular menses 01/09/2015 Resolved Problems Problem Noted Date Diagnosed Date Resolved Date Abscess of left thigh 06/14/20222022 Hypoglycemia 02/13/2022 01/29/2023 Assessment & Plan (02/13/2022 2:39 PM LOAN REVIEW OFFICER): No documented low blood sugar Advised BG monitoring with symptoms to establish correlation & inform further work up Positive FLORENCIO (antinuclear antibody) 10/14/2021 01/29/2023 Rash 09/20/2021 01/29/2023 Sore throat 09/20/2021 01/29/2023 Infectious mononucleosis without complication 09/05/19 22 01/29/2023 Papillary thyroid carcinoma 03/09/2021 12/16/2024 Assessment & Plan (03/12/2023 3:28 PM LOAN REVIEW OFFICER): No evidence of tumor recurrence on biochemical and radiological data so far Will plan follow-up with thyroid function test with a TSH goal lower normal. Biochemical evaluation with thyroid tumor markers. We will also obtain neck ultrasound for evaluation of the neck. If above are in acceptable range, will plan follow-up on yearly basis Assessment & Plan (02/13/2022 2:38 PM LOAN REVIEW OFFICER): No evidence of tumor recurrence on biochemical and radiological data so far Will plan follow-up with thyroid function test with a TSH goal lower normal. Biochemical evaluation with thyroid tumor markers. We will also obtain neck ultrasound for evaluation of the neck. If above are in acceptable range, will plan follow-up on yearly basis Leg mass, left 09/09/2018 01/29/2023 Encounters Date Type Department Care Team Description 03/17/2025 Telephone [facility] Family Medicine at [address] [place] [address] Garrett Sanders MD missed appointment from Last 3 Months Immunizations Immunization Administration [...] Not Answered Alcohol Use Standard Drinks/Week Comments Not Currently [...] on file Legal Sex Female 5:33 AM LOAN REVIEW OFFICER Gender Identity Not on file Sexual Orientation Not on file Last Filed Vital Signs Vital Sign Reading Time Taken Comments Blood Pressure 126/83 12/16/2024 11:31 AM CDT Pulse 90 12/16/2024 11:31 AM CDT Temperature 36.3 C (97.3 F) 12/16/2024 11:31 AM CDT Respiratory Rate 16 12/16/2024 11:3 1 AM CDT Oxygen Saturation 98% 12/16/2024 11: 31 AM CDT Inhaled Oxygen Concentration - - Weight 147.3 kg (324 lb 11.2 oz) 2024 11:31 AM CDT Height 170.2 cm (5' 7) 12/16/2024 11:3 1 AM CDT Body Mass Index 50.86 12/16/2024 11:31 AM CDT Plan of Treatment Health Maintenance Due Date Last Done Comments Cervical Cancer Screening 2000 HPV Vaccines (2 - 2-dose series) 07/04/2011 01/02/2011 Chlamydia and Gonorrhea (GC/CT) Screening 06/14/2023 06/13/2022, 03/28/2022, 02/01/2022 Regular Well Visit/Exam 18-64 06/28/2023 06/27/2022 Influenza Vaccine (#1) 2024 Pneumococcal vaccine <65 (1 of 1 - PPSV23, PCV20, or PCV21) 12/01/2025 12/30/2002, 07/25/2001, 05/08/2001, Additional history exists Postponed from 2006 (Patient declined, but will receive in the future) Depression Screening 12/16/2025 12/16/2024, 12/16/2024, 12/13/2023, Additional history exists DTaP/Tdap/Td Vaccine (8 - Td or Tdap) 02/16/2030 02/17/2020, 01/02/2011, 10/01/2006, Additional history exists Hepatitis B Screening Completed 12/30/2002 , 05/08/2001, 03/12/2001, Additional history exists Varicella Vaccines Completed 10/01/2006, 12/30/2002 Hepatitis C Screening Completed 02/01/2022 Procedures Procedure Name Priority Date/Time Associated Diagnosis Comments N. GONORRHOEAE/C. TRACHOMATIS AMPLIFICATION STAT 06/13/2022 3:09 PM CDT HEPATITIS PANEL, ACUTE STAT 7:53 PM CDT from Last 3 Months or Most Recently Relevant to Health Maintenance Results * N. gonorrhoeae/C. trachomatis Amplification Urine (06/13/2022 3:09 PM CDT) C. trachomatis Not Detected Not Detected [facility] CORDERO Comment:Testing performed by : [facility], [address] [place] [address], [place]., [address] N. gonorrhoeae Not Detected Not Detected AYSE CORDERO Comment: Interpretive Data Testing performed by the [facility]. This assay detects Chlamydia trachomatis and [...] last revised on 2019. Testing performed by: [facility], [address] [place] [address]., [id number] Urine (None) 06/13/2022 3:09 PM CDT 06/13/2022 4:09 PM CDT Maria Teresa OLIVA LAB MICROBIOLOGY - GENERAL ORDER SADIA Final Result Performing Organization Address City/[facility]/ZIP Co de Phone Number [facility] [address] [facility] [place] [address] * Hepatitis panel, acute (02/01/2022 7:53 PM CDT) Hep A IgM Nonreactive Nonreactive [facility] Comment: Interpretive Data: If Hep A IgM Ab is reported as Equivocal, a new sample should be drawn in two weeks for testing. Current interpretive data was last revised on 19. Hep B core IgM Nonreactive Nonreactive [facility] Comment: Interpretive Data If HepB Core IgM Ab is reported as Equivocal, a new sample should be drawn in two weeks for testing. Current interpretive data was last revised on 19. Hep C Ab Nonreactive Nonreactive [facility] Comment: Interpretive Data Nonreactive: Antibodies to [...] revised on 2019. HepBsAg Nonreactive Nonreactive [facility] Blood 02/01/2022 7:53 PM CDT 02/01/2022 11:28 PM CDT Liz Tucker DO LAB MICROBIOLOGY - GENERAL ORDE RUTH Final Result [facility] [address] [facility] Department [place] [address] from Last 3 Months or Most Recently Relevant to Health Maintenance Insurance [facility] Care Teams Ground Crew Supervisor Relationship Specialty Start Date End Date Garrett Sanders MD [address] [place] [address] PCP - General Family Medicine 04/09/23
[2025-03-20 21:23] LABS: Thyroid Stimulating Hormone 36.500 uIU/mL (0.465-4.680)
[2025-03-20] MEDS: ACETAMINOPHEN 500 MG TABLET 1000 MG PO (21:26)
[2025-03-20 21:27] LABS: Cannabinoid Screen Urine Positive (Negative)
[2025-03-20] MEDS: LEVOTHYROXINE SODIUM 125 MCG TABLET 250 MCG PO (22:50)
[2025-03-20] MEDS: SODIUM CHLORIDE 0.9% IV 1,000 ML 999 ML IV CONT (22:50)
[2025-03-21] VITALS (9 sets, daily range): BP systolic 87–138; BP diastolic 54–83; PULSE 59–80; RESP 15–20; TEMP 36.3–36.8; O2SAT 94–98; BMI 50.3
[2025-03-21] MEDS: SODIUM CHLORIDE 0.9% IV 1,000 ML 125 ML IV CONT ×2 (01:30→10:06)
[2025-03-21] MEDS: SODIUM CHLORIDE 0.9% IV 1,000 ML 999 ML IV CONT (01:30)
--- NOTE | 2025-03-21 07:27 | PC.NURSE ---
Meal tray ordered for pt. to be delivered bedside.
[2025-03-21] MEDS: LACTATED RINGERS 1,000 ML 999 ML IV CONT (07:35)
--- NOTE | 2025-03-21 07:45 | PC.NURSE ---
Home med list confirmed with pt. by this RN.
[2025-03-21] MEDS: ACETAMINOPHEN 325 MG TABLET 650 MG PO (07:56)
--- NOTE | 2025-03-21 08:10 | PM.IMHP2 ---
H&P: HPI History of Present Illness Date/Time: 03/21/25 08:10 Chief Complaint: Seizure Narrative: Mervat Caldera is a 24 year old female with a past medical history of Hypothyroidism, anxiety and depression who presents to the hospital with seizure like activity. She states that she was shopping at a grocery center when she started experiencing tunnel vision, lightheadedness and shortness of breath. She denies any chest pain, n/v, abd pain, loss of bowel/bladder or numbness/tingling. She reports shaking, losing consciousness and waking up on the floor with no witnesses around. She then walked back home and continued to have white/blurry vision and weakness, and then proceeded to call EMS and was subsequently taken to [place] [facility]. These symptoms lasted several hours and subsided while in the ER. She does endorse several episodes in the past, most recently occurring several weeks ago, and another episode occurring several months ago. When this first occurred several months ago, she was evaluated in the ER and was eventually discharged and instructed to follow up with her PCP and was supposed to have an EEG performed but was unable to due to insurance hinderance. She denies any recent illness, known sick contacts, or illicit drug use. She does smoke marijuana occasionally but no heavy drinking. ED Workup: 38.6F, 108 HR, 20RR, 138/97, 96% on RA WBC 14.4, Hgb 14.7, Hct 43, Na 139, K 3.8, BUN 13, Cr 1.25, Glucose 93, LFTs wnl, CK 200, TSH 36.5 UA: Hyaline casts and mucus present, otherwise unremarkable Head CT: No acute intracranial hemorrhage or extra axial fluid collections. Cervical Spine CT: No acute fracture or subluxation. Review of Systems Review of Systems: All systems reviewed & are unremarkable except as noted in HPI and below PMFSH Past Medical History Medical History (Updated 03/21/25 @ 08:13 by Mark Anthony Zaldivar PA-C) FHx: thyroid cancer Lateral malleolar fracture Binge eating disorder Has less than high school diploma OCD (obsessive compulsive disorder) History of thyroid cancer Suicidal ideation Arthritis Endometriosis Seizures Tachycardia Hypertension Hypothyroidism Depression Anxiety Thyroid cancer Surgical History Surgical History H/O partial thyroidectomy Right, 04/10/2018 Family History Family History Mother Asthma Depression Father Hypertension Depression Alcoholism Grandparent Breast cancer Social History Social History Smoking packs per day: 1 Smoking cigarettes per day: 20.0 Years smoked: 4 Smoking pack-years: 4.00 Smoking status: Current every day smoker Tobacco type: cigarettes and e-cigarettes/vaping Smoking end date: 04/02/20 Additional smoking assessment comments: Vapes now, vrs smoking Alcohol intake: never Substance use: current Substance use type: marijuana and other Other substance usage details: Vapes and Marijuana smokes daily Lack of Transportation: No Lack of Food: Never True Current Housing: I Have Housing Concerned About Future Housing: No Difficulty Paying Gas/Electric Bills: No Difficulty Paying for Meds: No Currently Unemployed: No Difficulty w/ Childcare or Family Care: No Living arrangements: with family Additional living arrangements comments: Brother Spiritual care concerns: No Meds Home Medications and Allergies Home Medications ?Medication ?Instructions ?Recorded ?Confirmed ?Type acetaminophen 500 mg capsule 1,000 mg (2 x 500 mg) PO Q6H PRN 08/23/24 02/17/25 Rx pain #30 caps cyanocobalamin (vitamin B-12) 500 500 mcg PO HS 02/04/25 03/21/25 History mcg tablet pregabalin 100 mg capsule 100 mg PO TID 02/04/25 03/21/25 History tramadol 50 mg tablet 50 mg PO PRN 02/04/25 03/21/25 History atenolol 50 mg tablet 50 mg PO Q24H #30 tabs 02/17/25 03/21/25 Rx cariprazine 1.5 mg capsule 1.5 mg PO QHS #30 caps 02/17/25 03/21/25 Rx (Vraylar) famotidine 40 mg tablet 40 mg PO DAILY #30 tabs 02/17/25 03/21/25 Rx sertraline 200 mg capsule 200 mg PO DAILY #30 caps 02/17/25 03/21/25 Rx Vitamin D 10,000 units BYMOUTH DAILY 03/21/25 03/21/25 History bupropion HCl 100 mg tablet,12 hr 100 mg PO HS 03/21/25 03/21/25 History sustained-release (Wellbutrin SR) levothyroxine 200 mcg tablet 200 mcg PO .am 03/21/25 03/21/25 History levothyroxine 50 mcg tablet 50 mcg PO .am 03/21/25 03/21/25 History (Levoxyl) riboflavin (vitamin B2) 25 mg 25 mg PO DAILY 03/21/25 03/21/25 History tablet (Vitamin B-2) Allergies Allergy/AdvReac Type Severity Reaction Status Date / Time adhesive tape Allergy Intermediate Rash Verified 02/20/25 08:00 lactose AdvReac Intermediate Diarrhea Verified 02/20/25 08:00 amoxicillin AdvReac Hives Verified 02/20/25 08:00 Vital Signs Vital Signs - 24 hr 03/20/25 19:19 03/20/25 19:19 03/21/25 04:51 Temperature 98.2 F Pulse Rate 108 H 66 Respiratory Rate 20 16 Blood Pressure 138/97 H Pulse Oximetry 96 96 96 Oxygen Delivery Room Air Room Air 03/21/25 06:23 03/21/25 07:35 Temperature 97.4 F L Pulse Rate 66 60 Respiratory Rate 15 Blood Pressure 87/58 L 122/71 Pulse Oximetry 94 98 Oxygen Delivery Exam Narrative: Gen - well appearing female in no acute respiratory distress who is nontoxic-appearing lying semi recumbent in bed HEENT - normocephalic. ?Atraumatic. ?Pupils equal round and reactive.?Oropharynx was clear. ?No oral lesions. ?Moist mucous membranes. ?Palate bunny symmetrically. ?No facial asymmetry. Neck - neck was supple. ?No dominant adenopathy, thyromegaly or masses. Chest - lungs are clear to auscultation bilaterally. ?No wheezes or crackles. CV - heart was regular rate and rhythm. ?S1-S2. ?No murmurs gallops or rubs. Abd - abdomen was soft. ?Nontender. ?Nondistended. ?Positive bowel sounds. ?No organomegaly or masses. Ext - no clubbing, cyanosis or edema. ?2+ DP pulses bilaterally. Neuro - patient is alert and oriented x4. ?Strength is 5/5 in both upper and lower extremities. ?Cranial nerves 2-12 are intact. ?Speech is clear. Psych - normal mood and affect. ?Patient is pleasant and cooperative. Skin - warm and dry. ?No rashes noted. Results Labs Labs: Short CBC 03/20/25 Range/Units 19:58 WBC 14.4 H (4.5-10.0) K/mm3 Hgb 14.7 (12.0-15.0) g/dL Hct 43.0 (37.0-47.0) % Plt Count 448 H (150-375) k/mm3 BMP 03/20/25 19:58 Sodium 139 Potassium 3.8 Chloride 101 Carbon Dioxide 27 BUN 13 Creatinine 1.25 H Glucose 93 Calcium 8.5 Cardiac Enzymes 03/20/25 Range/Units 19:58 Total Creatine Kinase 200 H (30-135) U/L Liver Function 03/20/25 Range/Units 19:58 Total Bilirubin 0.7 (0.2-1.3) mg/dL AST 39 H (14-36) U/L ALT 35 (6-35) U/L Alkaline Phosphatase 61 (38-126) U/L Albumin 4.6 (3.5-5.1) g/dL Urine 03/20/25 Range/Units 21:01 Urine Color Yellow (Yellow) Urine Appearance Clear (Clear) Urine pH 6.0 (5.0-9.0) Ur Specific [place] 1.026 (1.001-1.035) Urine Protein 1+ H (Negative) mg/dL Urine Glucose (UA) Negative (Negative) mg/dL Quality VTE Prophylaxis VTE prophylaxis: mechanical ordered Assessment and Plan Assessment and plan (1) Seizure: Code(s): R56.9 - Unspecified convulsions Status: Acute Assessment and Plan: CT head: No acute intracranial hemorrhage or extra axial fluid collections. Cervical Spine CT: No acute fracture or subluxation. MRI brain, EEG pending neuro checks UDS: + for cannabinoid neuro consult seizure precautions (2) Hypothyroidism: Code(s): E03.9 - Hypothyroidism, unspecified Status: Acute Assessment and Plan: Continue levothyroxine TSH 36.5 Check Free T4, T3 (3) Anxiety and depression: Code(s): F41.9 - Anxiety disorder, unspecified; F32.A - Depression, unspecified Status: Acute Assessment and Plan: Continue at home medications Prior Studies I have reviewed the following patient records and this information was taken into consideration when formulating the assessment and plan.: previous labs, previous ER visits, previous hospitalizations and previous clinic visits
--- NOTE | 2025-03-21 13:12 | PC.NURSE ---
patients lunch tray ordered at this time.
--- OUTSIDE RECORDS SUMMARY | 2025-03-21 13:54 | XMS_ITS | Encounter Summary ---
Author Organization [facility] Healthcare Address [address] [place] [address] Care Team Providers Care Tumbler Operator Name Role Phone Garrett Sanders MD Primary Care Provider [phone] Reason for Visit * Reason Onset Date Comments missed appointment 03/17/2025 Encounter Details Date Type Department Care Team (Late st Contact Info) Description 03/17/2025 Telephone [facility] Medical Group Family Medicine at [address] [place] [address] Garrett Sanders MD [address] [place] [phone] missed appointment Social History Tobacco Use [...] on file 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 She missed her appointment today. My chart message sent. IER DRIVER documented in this encounter Plan of Treatment Not on file documented as of this encounter Visit Diagnoses Not on filedocumented in this encounter Care Teams Tumbler Operator Relationship Specialty Start Date End Date Garrett Sanders MD [address] [facility] [address] [place] [id number] PCP - General Family Medicine 04/09/23 documented as of this encounter
--- OUTSIDE RECORDS SUMMARY | 2025-03-21 13:54 | XMS_ITS | Patient Health Record ---
Author Organization [facility] Address [address] [place] [address] Care Team Providers Care Pack Master Name Role Phone Olga CALIX, Rich Primary Care Provider Unavaila Les Low Unavailable [phone] Kerrie Coreas APRN Unavailable Unavailable Allergies Allergen [...] Date Coverage End Date r [address] [address] [place] [address] [id number] Mervat Caldera Self - patient is the insured Medical (General) History Medical History History ICD Code Binge eating disorder OCD Hx of thyroid cancer Suicidal ideation Arthritis Seizures Tachycardia HTN Hypothryroidism Depression Anxiety
--- OUTSIDE RECORDS SUMMARY | 2025-03-21 13:54 | XMS_ITS | Clinical Summary ---
Author Organization [facility] Address [address] [place] [address] Care Team Providers Care Long Distance Operator Name Role Phone Garrett Sanders MD Primary Care Provider [phone] Allergies Active Allergy Reactions Criticality Noted Date [...] 1 tablet (100 mg total) by mouth disposal worker before breakfast 90 tablet 3 07/16/19 25 [...] 1 capsule (290 mcg total) by mouth disposal worker before breakfast 90 capsule 3 08/06/19 25 [...] Assessment & Plan (02/14/2023 2:58 PM SURVEY DATA TECHNICIAN): Warm compresses every 4-6 hours for 5-10 minutes Frequent handwashing, lid massage Doxycycline po 100 mg BID x 7 days. Sunscreen use advised. Topical erythromycin ER for worsening, pain, streaking redness, worsening swelling, vision impairment Upper respiratory tract infection 02/14/2023 Assessment & Plan (02/14/2023 2:59 PM SURVEY DATA TECHNICIAN): Rapid strep negative Rapid covid, flu negative [...] Assessment & Plan (04/19/2023 12:26 PM SURVEY DATA TECHNICIAN): Recommended aggressive Lifestyle modification and weight loss [...] Assessment & Plan (03/12/2023 3:27 PM SURVEY DATA TECHNICIAN): Continue current levothyroxine dose. Will check thyroid function test and adjust levothyroxine dose accordingly. TSH goal lower normal Assessment & Plan (02/13/2022 2:37 PM SURVEY DATA TECHNICIAN): Continue current levothyroxine dose. Will check thyroid function test and adjust levothyroxine dose accordingly. 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 Syphilis contact 02/04/2019 Overview (04/19/2023): Encounter for STD screening;Recorded Elsewhere: No Location: [facility] [address] [facility] Source: EHR Chronic: N Practice ID: [id number] Billable Time: 01:15:00 PM Contraceptive management 04/23/2018 Overview (04/19/2023): Encounter for routine checking of intrauterine contraceptive device;Recorded Elsewhere: No Location: [facility] [address] Source: EHR Chronic: N Practice ID: [id number] Billable Time: 09:45:00 AM Pelvic and perineal pain 02/27/2018 Overview (04/19/2023): Pelvic and perineal pain;Recorded Elsewhere: No Location: [facility] [address] Source: EHR Chronic: N Practice ID: [id number] Billable Time: 11:00:00 AM Menstrual cycle disorder 05/19/2015 Overview (04/19/2023): Menometrorrhagia;Recorded Elsewhere: No Location: [facility] [address] Source: EHR Chronic: N Practice ID: [id number] Billable Time: 10:30:00 AM Irregular menses 01/09/2015 Resolved Problems Problem Noted Date Diagnosed Date Resolved Date Abscess of left thigh 06/14/20222022 Hypoglycemia 02/13/2022 01/29/2023 Assessment & Plan (02/13/2022 2:39 PM SURVEY DATA TECHNICIAN): No documented low blood sugar Advised BG monitoring with symptoms to establish correlation & inform further work up Positive FLORENCIO (antinuclear antibody) 10/14/2021 01/29/2023 Rash 09/20/2021 01/29/2023 Sore throat 09/20/2021 01/29/2023 Infectious mononucleosis without complication 09/05/19 22 01/29/2023 Papillary thyroid carcinoma 03/09/2021 12/16/2024 Assessment & Plan (03/12/2023 3:28 PM SURVEY DATA TECHNICIAN): No evidence of tumor recurrence on biochemical and radiological data so far Will plan follow-up with thyroid function test with a TSH goal lower normal. Biochemical evaluation with thyroid tumor markers. We will also obtain neck ultrasound for evaluation of the neck. 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 gonorrhoeae Not Detected Not Detected AYSE CORDERO Comment: Interpretive Data Testing performed by the [facility]. This assay detects Chlamydia trachomatis and [...] revised on 2019. Testing performed by: [facility], [address] [place] [address]., [id number] Urine (None) 06/13/2022 3:09 PM CDT 06/13/2022 4:09 PM CDT Maria Teresa OLIVA LAB MICROBIOLOGY - GENERAL ORDER SADIA Final Result Performing Organization Address City/[facility]/ZIP Co de Phone Number [facility] [address] [facility] Department [place] [address] * Hepatitis panel, acute (02/01/2022 7:53 PM CDT) Hep A IgM Nonreactive Nonreactive [facility] Comment: Interpretive Data: If Hep A IgM Ab is reported as Equivocal, a new sample should be drawn in two weeks for testing. Current interpretive data was last revised on 19. Hep B core IgM Nonreactive Nonreactive [facility] Comment: Interpretive Data If HepB Core IgM Ab is reported as Equivocal, a new sample should be drawn in two weeks for testing. Current interpretive data was last revised on 19. Hep C Ab Nonreactive Nonreactive [facility] Comment: Interpretive Data Nonreactive: Antibodies to HCV [...] last revised on 2019. HepBsAg Nonreactive Nonreactive [facility] Blood 02/01/2022 7:53 PM CDT 02/01/2022 11:28 PM CDT Liz Tucker DO LAB MICROBIOLOGY - GENERAL ORDE RUTH Final Result AYSE [address] [facility] Department [place] [address] from Last 3 Months or Most Recently Relevant to Health Maintenance Insurance [facility] Care Teams Long Distance Operator Relationship Specialty Start Date End Date Garrett Sanders MD [address] [place] [address] PCP - General Family Medicine 04/09/23
--- OUTSIDE RECORDS SUMMARY | 2025-03-21 13:54 | XMS_ITS | Encounter Summary ---
Author Organization [facility] Healthcare Address [address] [place] [address] Care Team Providers Care Retail Interior Designer Name Role Phone Samantha Olsen Primary Care Provider Fatuma Theodore NP Primary Care Provider [phone] Garrett Sanders MD Primary Care Provider [phone] Encounter Details Date Type Department Care Team (Late st Contact Info) Description 01/10/2022 Telephone [facility] OP Physical Therapy 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 Gender Identity Not on file Sexual Orientation Not on file documented as of this encounter Plan of Treatment Not on file documented as of this encounter Visit Diagnoses Not on filedocumented in this encounter Additional Health Concerns Infection Onset Date Last Indicated Resolved Time COVID: Suspected 02/14/2023 02/14/2023 02/14/2023 2:34 PM LOG HANDLING EQUIPMENT OPERATOR COVID: Suspected 04/09/2023 04/09/2023 04/09/2023 11:05 PM LOG HANDLING EQUIPMENT OPERATOR documented as of this encounter Care Teams Retail Interior Designer Relationship Specialty Start Date End Date Samantha Olsen PA PCP - General Family Medicine 12/13/21 01/28/23 Fatuma Theodore NP [address] [facility] [address] [place] [id number] PCP - General Family Medicine 01/29/23 04/08/23 Garrett Sanders MD [address] [facility] [address] [place] [id number] PCP - General Family Medicine 04/09/23 documented as of this encounter
--- OUTSIDE RECORDS SUMMARY | 2025-03-21 13:54 | XMS_ITS | Clinical Summary ---
Author Organization [facility] Address [facility] [place] [address] Care Team Providers Care Aprn Name Role Phone Unavailable Primary Care Provider [...] Sex Assigned at Female 02/16/2021 2:40 PM BIOFUELS PRODUCTION MANAGER Legal Sex Female 6:24 PM CDT Gender Identity Female 02/16/2021 2:40 PM BIOFUELS PRODUCTION MANAGER Sexual Orientation Straight 02/16/2021 2: 40 PM BIOFUELS PRODUCTION MANAGER Last Filed Vital Signs Vital Sign Reading Time Taken Comments Blood Pressure 146/83 04/11/2021 1:09 PM BIOFUELS PRODUCTION MANAGER Pulse 87 04/11/2021 1:09 PM BIOFUELS PRODUCTION MANAGER Temperature 36.2 C (97.1 F) 04/11/2021 1:09 PM BIOFUELS PRODUCTION MANAGER Respiratory Rate 18 04/11/2021 1:09 PM BIOFUELS PRODUCTION MANAGER Oxygen Saturation 98% 04/11/2021 1:09 PM BIOFUELS PRODUCTION MANAGER Inhaled Oxygen Concentration - - Weight 108.9 kg (240 lb) 04/11/2021 1:09 PM BIOFUELS PRODUCTION MANAGER Height 175.3 cm (5' 9) 04/11/2021 1:09 PM BIOFUELS PRODUCTION MANAGER Body Mass Index 35.44 04/11/2021 1:09 PM BIOFUELS PRODUCTION MANAGER Plan of Treatment Health Maintenance Due [...] VE NON-REACTI VE 01/21/2021 5:16 PM CDT [facility] 01/21/2021 3:03 PM CDT us Tamra Moran NP LABORATORY Final Result [facility] [address] [place] [address], [place] [phone] from Last 3 Months or Most Recently Relevant to Health Maintenance Insurance [employer]
--- OUTSIDE RECORDS SUMMARY | 2025-03-21 13:54 | XMS_ITS | Clinical Summary ---
Author Organization [facility] Address [address] [place] [address] Care Team Providers Care Grocery Store Clerk Name Role Phone Berkley De La Paz MD Primary Care Provider [phone] Berkley De La Paz MD Unavailable [phone] Source Comments [facility],non-owned Affiliates and Associated Physician Practices is amultiple site organization consisting of ambulatory clinics and hospital sitesin [place], [place], [place] and [place]. This disclosure is being madepursuant to the Care Everywhere program and may not contain all information available regarding this patient. 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 Gender Identity Not on file Sexual Orientation [...] patient's age to complete this topic Insurance [facility] MEDICAID - [place] [facility] MEDICAID - OUT OF STATE AET [facility] Address: [address] [place] [address] [employer] MEDICAID - [place] [facility] Care Teams Grocery Store Clerk Relationship Specialty Start Date End Date Berkley De La Paz MD [address] [place] [address] PCP - General 04/11/18 Berkley De La Paz MD [address] [place] [address] Pediatrics 04/11/18
--- OUTSIDE RECORDS SUMMARY | 2025-03-21 13:54 | XMS_ITS | Encounter Summary ---
Author Organization [facility] Healthcare Address [address] [place] [address] Care Team Providers Care Project Manager Name Role Phone Samantha Olsen Primary Care Provider Fatuma Theodore NP Primary Care Provider [phone] Garrett Sanders MD Primary Care Provider [phone] Encounter Details Date Type Department Care Team (Late st Contact Info) Description 01/10/2022 Telephone [facility] OP Physical Therapy 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 Gender Identity Not on file Sexual Orientation Not on file documented as of this encounter Plan of Treatment Not on file documented as of this encounter Visit Diagnoses Not on filedocumented in this encounter Additional Health Concerns Infection Onset Date Last Indicated Resolved Time COVID: Suspected 02/14/2023 02/14/2023 02/14/2023 2:34 PM METAL CUT OFF SAW TENDER COVID: Suspected 04/09/2023 04/09/2023 04/09/2023 11:05 PM METAL CUT OFF SAW TENDER documented as of this encounter Care Teams Project Manager Relationship Specialty Start Date End Date Samantha Olsen PA PCP - General Family Medicine 12/13/21 01/28/23 Fatuma Theodore NP [address] [facility] [address] [place] [id number] PCP - General Family Medicine 01/29/23 04/08/23 Garrett Sanders MD [address] [facility] [address] [place] [address] PCP - General Family Medicine 04/09/23 documented as of this encounter
--- NOTE | 2025-03-21 14:25 | PC.NURSE ---
Pt. in room eating lunch. No requests at this time.
--- NOTE | 2025-03-21 15:26 | WPCEDHO ---
ED Hand Off Checklist All vitals saved: Yes IV Site documented:Yes All med administrations documented:Yes Triage Note Triage Note Pt to the Ed with C/O seizure 03/20/25 19:19 that occurred twice today. Pt states the first one occurred while at the store and the second occurred at home and called EMS. Pt states unknow duration but says each one was proceeded by lightheadedness into tunnel vision and a bright light. Pt states she is sore in the her legs and has some pain in in the back of her head Allergies adhesive tape Allergy (Intermediate, Verified 02/20/25 08:00) Rash lactose Adverse Reaction (Intermediate, Verified 02/20/25 08:00) Diarrhea amoxicillin Adverse Reaction (Verified 02/20/25 08:00) Hives Current Diagnoses Hypothyroidism, unspecified (03/21/25) Depression, unspecified (03/21/25) Anxiety disorder, unspecified (03/21/25) Unspecified convulsions (03/21/25) Family History (Last Reviewed 02/17/25 @ 13:49 by Kerrie Coreas, MAUREEN) Mother Asthma Depression Father Hypertension Depression Alcoholism Grandparent Breast cancer Active Medications including assessments/comments Acetaminophen (Acetaminophen 325 Mg Tablet) 650 mg PO Q4H PRN PRN Reason: Mild Pain (1-3) or Fever Last Admin: 03/21/25 07:56 Dose: 650 mg Documented By: YARIEL [facility] Pain/Fever Assessment Document 03/21/25 07:56 YARIEL (Rec: 03/21/25 07:56 DONOVANT [id number]) Administration Reason Administration Pain Reason Pain Pain Evaluation Assessment Pain Scale Used Numeric (1 - 10) Order Parameters Order Parameters for Pain Level 7-10 (Severe) Administering this Pain Med Self Report Pain Assessment Reported Pain Level 7 Pain Location Head, Frontal Pain Description Aching Pain Frequency Acute Pain Score Pain Score 7: Self Report Re-Assess: [facility] Pain/Fever Reassessment Document 03/21/25 12:00 YARIEL (Rec: 03/21/25 14:25 YARIEL [id number]) Reason for Administratin Reason for Pain Administration Pain Scale Pain Scale Used Numeric (1 - 10) Self Report Pain Assessment Reported Pain Level 4 Pain Score Pain Score 4: Self Report Sodium Chloride (Normal Saline Iv) 1,000 mls @ 125 mls/hr IV CONT .Q8H MIREYA Last Admin: 03/21/25 10:06 Dose: 125 mls/hr Documented By: YARIEL Infusion/Titration Document 03/21/25 10:06 KJT (Rec: 03/21/25 10:06 KJT [id number]) Intake IV Site Peripheral Access Left Wrist Cumulative Intake ( 1,000 Rx) Container Volume 1,000 Waste Amount 0 Dosing Infusion Rate 125 Cumulative Dose Not Applicable Increase/Decrease Started/Running Elapsed Time Elapsed Time ( 8h 15m minutes) Infusion: 03/21/25 09:45 Dose: Infused Documented By: YARIEL Infusion/Titration Document 03/21/25 09:45 KJT (Rec: 03/21/25 10:04 KJT [id number]) Intake Intake 1,000 Cumulative Intake ( 1,000 bag) Cumulative Intake ( 1,000 Rx) Container Volume 0 Waste Amount 0 Dosing Infusion Rate 0 Cumulative Dose Not Applicable Increase/Decrease Infused Elapsed Time Elapsed Time ( 8h 15m minutes) Admin: 03/21/25 01:30 Dose: 125 mls/hr Documented By: ALBER Infusion/Titration Document 03/21/25 01:30 ALBER (Rec: 03/21/25 01:30 YOVANIG [id number]) Intake IV Site Peripheral Access Right Antecubital Container Volume 1,000 Waste Amount 0 Dosing Infusion Rate 125 Cumulative Dose Not Applicable Increase/Decrease Started Elapsed Time Elapsed Time ( 0m minutes) Administered/Completed Medications Discontinued Medications Acetaminophen (Acetaminophen 500 Mg Tablet) 1,000 mg PO ONCE STA Stop: 03/20/25 20:42 Last Admin: 03/20/25 21:26 Dose: 1,000 mg Documented By: ABBIE Sodium Chloride (Normal Saline Iv) 1,000 mls @ 999 mls/hr IV CONT .Q1H1M STA Stop: 03/20/25 23:11 Last Infusion: 03/21/25 01:47 Dose: Infused Documented By: Admin: 03/20/25 22:50 Dose: 999 mls/hr Documented By: ALBER Sodium Chloride (Normal Saline Iv) 1,000 mls @ 999 mls/hr IV CONT .Q1H1M STA Stop: 03/21/25 00:02 Last Infusion: 03/21/25 03:25 Dose: Infused Documented By: Admin: 03/21/25 01:30 Dose: 999 mls/hr Documented By: ALBER Lactated Ringer's (Lr - Lactated Ringers Iv) 1,000 mls @ 999 mls/hr IV CONT .Q1H1M STA Stop: 03/21/25 07:52 Last Infusion: 03/21/25 09:15 Dose: Infused Documented By: Admin: 03/21/25 07:35 Dose: 999 mls/hr Documented By: YARIEL Levothyroxine Sodium (Levothyroxine Sodium 125 Mcg Tablet) 250 mcg PO ONCE STA Stop: 03/20/25 22:09 Last Admin: 03/20/25 22:50 Dose: 250 mcg Documented By: ALBER Notes 03/21/25 15:25 Nurse Note by Jade Dunn Have not received atenolol from pharmacy to administer. Initialized on 03/21/25 15:25 - END OF NOTE 03/21/25 14:25 Nurse Note by Jade Dunn Pt. in room eating lunch. No requests at this time. Initialized on 03/21/25 14:25 - END OF NOTE 03/21/25 13:12 Nurse Note by Kirsty Ryan patients lunch tray ordered at this time. Initialized on 03/21/25 13:12 - END OF NOTE 03/21/25 07:45 Nurse Note by Jade Dunn Home med list confirmed with pt. by this RN. Initialized on 03/21/25 07:45 - END OF NOTE 03/21/25 07:27 Nurse Note by Jade Dunn Meal tray ordered for pt. to be delivered bedside. Initialized on 03/21/25 07:27 - END OF NOTE Interventions/Assessments IV / Saline Lock, Insert Start: 03/20/25 19:33 Freq: ONCE Status: Active Protocol: Document 03/21/25 10:05 KJT (Rec: 03/21/25 10:06 KJT [id number]) IV Assessment Peripheral Access Left Wrist IV Catheter Access Initiated IV Insertion Date 03/21/25 IV Insertion Time 10:06 Catheter Gauge 20 IV Insertion 1 Attempts Ultrasound Used for No Placement IV Site Assessment WNL IV Care and WNL Maintenance PA: Neurological Assessment Start: 03/20/25 19:15 Freq: Status: Active Protocol: Document 03/21/25 07:30 KJT (Rec: 03/21/25 08:21 [facility] [id number]) Neurological Assessment Level of Alert Consciousness Arousable to Verbal Orientation Oriented to Person,Oriented to Place,Oriented to Time Neurological Headache Symptoms Hallucination Type None Unable to Redirect No Behavior Behavior Cooperative Patient Able to Comprehend Comprehension Memory Description Intact Ability to Maintain Normal Balance Facial Symmetry Symmetrical Speech Pattern Clear Ability to Swallow Normal Tongue Position Midline Finger to Nose Test Normal Performance Heel to Hicks Test Normal Performance [place] Coma Scale Eyes Open Verbal Oriented and Alert Motor Follows Commands [place] Coma Total 15 Score Last Vital Signs Temperature 97.6 F 03/21/25 15:25 Pulse Rate 59 L 03/21/25 15:25 Respiratory Rate 16 03/21/25 15:25 Pulse Oximetry 96 03/21/25 15:25 Blood Pressure 115/54 L 03/21/25 15:25 Blood Pressure Mean 74 03/21/25 15:25 Blood Pressure Position Sitting 03/21/25 15:25 Oxygen Delivery Room Air 03/20/25 19:19 Weight 156.6 kg 03/20/25 19:19 Last Result - Abnormals Only WBC 14.4 K/mm3 (4.5-10.0) H 03/20/25 19:58 Plt Count 448 k/mm3 (150-375) H 03/20/25 19:58 Lymph % (Auto) 13.5 % (18.3-44.2) L 03/20/25 19:58 Butts % (Auto) 10.2 % (2.6-8.5) H 03/20/25 19:58 Butts # (Auto) 1.5 K/mm3 (0.1-0.6) H 03/20/25 19:58 Eos # (Auto) 0.5 K/mm3 (0-0.3) H 03/20/25 19:58 Abs Immat Gran (auto) 0.06 K/mm3 (0.00-0.031) H 03/20/25 19:58 Absolute Neuts (auto) 10.3 K/mm3 (1.3-6.7) H 03/20/25 19:58 Creatinine 1.25 mg/dL (0.7-1.0) H 03/20/25 19:58 Estimated GFR 53 (59-) L 03/20/25 19:58 AST 39 U/L (14-36) H 03/20/25 19:58 Total Creatine Kinase 200 U/L (30-135) H 03/20/25 19:58 Total Protein 8.4 g/dL (6.3-8.2) H 03/20/25 19:58 TSH 36.500 uIU/mL (0.465-4.680) H 03/20/25 19:58 Urine Protein 1+ mg/dL (Negative) H 03/20/25 21:01 Urine Ketones Trace mg/dL (Negative) H 03/20/25 21:01 U Cannabinoids Screen Positive (Negative) A 03/20/25 21:01 Most Recent Suicide Severity Rating Suicide Severity Rating NO RISK INDICATED 03/20/25 19:19
--- NOTE | 2025-03-21 15:28 | PC.NURSE ---
Pharmacy notified that this RN has not yet received atenolol. Pharmacist to send med to [address] [place] [address].
[2025-03-21 17:41] LABS: Hematocrit 37.5 % (37.0-47.0); Hemoglobin 12.7 g/dL (12.0-15.0); Immature Granulocyte Percent A 0.3 % (0-0.5); Lymphocytes Absolute Auto 2.11 K/mm3 (0.9-3.2); Mean Corpuscular HGB Conc 33.9 g/dl (32-36); Mean Corpuscular Hemoglobin 31.8 pg (26-34); Mean Corpuscular Volume 94.0 fl (80-100); Nucleated Red Blood Cells Absolute Auto 0.000 K/mm3 (0.0-0.012); Nucleated Red Blood Cells Perc 0.0 % (0.0-0.2); Platelet Count Result 364 k/mm3 (150-375); Red Blood Count 3.99 M/mm3 (4.2-5.4); White Blood Count 6.6 K/mm3 (4.5-10.0)
[2025-03-21 17:54] LABS: Alanine Aminotransferase 26 U/L (6-35); Albumin Level 3.6 g/dL (3.5-5.1); Alkaline Phosphatase 49 U/L (38-126); Anion Gap 7 mmol/L (4-12); Aspartate Amino Transferase 31 U/L (14-36); Bilirubin,Total 0.8 mg/dL (0.2-1.3); Blood Urea Nitrogen 12 mg/dL (7-17); Calcium 7.2 mg/dL (8.4-10.2); Carbon Dioxide 26 mmol/L (22-30); Chloride 105 mmol/L (98-107); Estimated CRCL calculation 108 ml/min; Estimated Glomerular Filt Rate 57; Glucose 92 mg/dL (65-110); Potassium 3.9 mmol/L (3.4-5.0); Sodium 138 mmol/L (137-145); Total Protein 6.6 g/dL (6.3-8.2)
[2025-03-21 18:12] LABS: Free T3 3.39 pg/mL (2.32-6.09)
--- NOTE | 2025-03-21 18:24 | ADMGEN ---
This patient, Mervat Caldera, was admitted to 2 Medical Room 243-. Patient/family oriented to hospital policies and general routines including ID bracelet, bed and alarms, visiting hours, pain management, procedures, bathroom and other care routines, personal items, smoking policy, room service/diet, and visiting hours. Information on how to activate the Rapid Response Team has been discussed. Patient/Family are encouraged to report perceived risks to care and to ask questions if they do not understand what they are told or what they should do.
[2025-03-21 18:44] LABS: Free T4 Free Thyroxine 1.13 ng/dL (0.78-2.19)
[2025-03-21] MEDS: PREGABALIN (*CRX) 50 MG CAPSULE 100 MG PO (18:59)
--- NOTE | 2025-03-21 19:17 | PC.NURSE ---
[facility] is not going to come assess patient since kem did today. Since this patient is not suicidal right now and the patient states that was 2 months ago she doesn't need to be on suicide precautions.
[2025-03-21] MEDS: CYANOCOBALAMIN 500 MCG TABLET PO (20:26)
[2025-03-21] MEDS: buPROPion HCL SR (12HR) 100 MG TABCR PO (20:26)
[2025-03-21] MEDS: ONDANSETRON INJ 4 MG/2 ML VIAL IV PUSH (22:34)
[2025-03-22] VITALS (9 sets, daily range): BP systolic 106–128; BP diastolic 50–78; PULSE 51–91; RESP 16–20; TEMP 36.2–36.6; O2SAT 98–99
[2025-03-22 05:17] LABS: Hematocrit 39.9 % (37.0-47.0); Hemoglobin 13.1 g/dL (12.0-15.0); Immature Granulocyte Percent A 0.3 % (0-0.5); Lymphocytes Absolute Auto 2.69 K/mm3 (0.9-3.2); Mean Corpuscular HGB Conc 32.8 g/dl (32-36); Mean Corpuscular Hemoglobin 31.6 pg (26-34); Mean Corpuscular Volume 96.4 fl (80-100); Nucleated Red Blood Cells Absolute Auto 0.000 K/mm3 (0.0-0.012); Nucleated Red Blood Cells Perc 0.0 % (0.0-0.2); Platelet Count Result 387 k/mm3 (150-375); Red Blood Count 4.14 M/mm3 (4.2-5.4); White Blood Count 5.9 K/mm3 (4.5-10.0)
[2025-03-22 05:37] LABS: Alanine Aminotransferase 25 U/L (6-35); Albumin Level 3.6 g/dL (3.5-5.1); Alkaline Phosphatase 53 U/L (38-126); Anion Gap 5 mmol/L (4-12); Aspartate Amino Transferase 32 U/L (14-36); Bilirubin,Total 0.9 mg/dL (0.2-1.3); Blood Urea Nitrogen 10 mg/dL (7-17); Calcium 7.3 mg/dL (8.4-10.2); Carbon Dioxide 28 mmol/L (22-30); Chloride 106 mmol/L (98-107); Estimated CRCL calculation 119 ml/min; Estimated Glomerular Filt Rate > 60; Glucose 83 mg/dL (65-110); Potassium 3.9 mmol/L (3.4-5.0); Sodium 139 mmol/L (137-145); Total Protein 6.5 g/dL (6.3-8.2)
[2025-03-22] MEDS: LEVOTHYROXINE SODIUM 50 MCG TABLET PO (05:49)
[2025-03-22] MEDS: LEVOTHYROXINE SODIUM 100 MCG TABLET 200 MCG PO (05:49)
--- NOTE | 2025-03-22 06:42 | PM.IMPN2 ---
Assessment and Plan Assessment and Plan (1) Seizure: Code(s): R56.9 - Unspecified convulsions Status: Acute Assessment and Plan: CT head: No acute intracranial hemorrhage or extra axial fluid collections. Cervical Spine CT: No acute fracture or subluxation. MRI brain, EEG pending (will likely be completed tomorrow) neuro checks UDS: + for cannabinoid neuro consult seizure precautions (2) Hypothyroidism: Code(s): E03.9 - Hypothyroidism, unspecified Status: Acute Assessment and Plan: History of parathyroid cancer and has had part of her thyroid and parathyroid removed Continue levothyroxine TSH 36.5 Free T4, T3 wnl (3) Anxiety and depression: Code(s): F41.9 - Anxiety disorder, unspecified; F32.A - Depression, unspecified Status: Acute Assessment and Plan: Continue at home medications Subjective Date/time seen: 03/22/25 06:42 Interval history: 24 year old female with a past medical history of Hypothyroidism, anxiety and depression who presents to the hospital with seizure like activity. She states that she was shopping at a grocery center when she started experiencing tunnel vision, lightheadedness and shortness of breath. 03/22/2025 Patient sitting comfortably in bed at time of exam. Denies any CP , SOB, n/v, dizziness, LOC or abd pain. EEG and Brain MRI pending, likely will be completed tomorrow given it being the weekend. Blood work and vitals remain stable. T3/T4 wnl. She remains A&Ox4 with no concerns at this time. Review of Systems Review of Systems: All systems reviewed & are unremarkable except as noted in HPI and below Exam Narrative: Gen - well appearing female in no acute respiratory distress who is nontoxic-appearing lying semi recumbent in bed HEENT - normocephalic. ?Atraumatic. ?Pupils equal round and reactive.?Oropharynx was clear. ?No oral lesions. ?Moist mucous membranes. ?Palate bunny symmetrically. ?No facial asymmetry. Neck - neck was supple. ?No dominant adenopathy, thyromegaly or masses. Chest - lungs are clear to auscultation bilaterally. ?No wheezes or crackles. CV - heart was regular rate and rhythm. ?S1-S2. ?No murmurs gallops or rubs. Abd - abdomen was soft. ?Nontender. ?Nondistended. ?Positive bowel sounds. ?No organomegaly or masses. Ext - no clubbing, cyanosis or edema. ?2+ DP pulses bilaterally. Neuro - patient is alert and oriented x4. ?Strength is 5/5 in both upper and lower extremities. ?Cranial nerves 2-12 are intact. ?Speech is clear. Psych - normal mood and affect. ?Patient is pleasant and cooperative. Skin - warm and dry. ?No rashes noted. Objective Data Vital Signs Vital Signs: Vital Signs - 24 hr 03/21/25 07:35 03/21/25 15:25 03/21/25 18:00 Temperature 97.4 F L 97.6 F 97.5 F L Pulse Rate 60 59 L 80 Respiratory Rate 15 16 20 Blood Pressure 122/71 115/54 L 115/69 Pulse Oximetry 98 96 97 Oxygen Delivery 03/21/25 18:58 03/21/25 20:00 03/21/25 20:25 Temperature Pulse Rate 80 74 Respiratory Rate Blood Pressure Pulse Oximetry Oxygen Delivery Room Air 03/21/25 21:19 03/22/25 06:00 Temperature 98.3 F 97.2 F L Pulse Rate 68 60 Respiratory Rate 18 18 Blood Pressure 138/83 123/78 Pulse Oximetry 97 98 Oxygen Delivery Intake/Output Intake/Output: Intake & Output 03/19/25 03/20/25 03/21/25 03/22/25 23:59 23:59 23:59 23:59 Intake Total 4240 400 Balance 4240 400 Meds/Results Medications: Active Medications Generic Name Dose Route Start Last Admin Trade Name Freq PRN Reason Stop Dose Admin Acetaminophen 650 mg 03/20/25 22:59 03/21/25 07:56 Acetaminophen 325 Mg Tablet PO 650 mg Q4H PRN Administration Mild Pain (1-3) or Fever Atenolol 50 mg 03/21/25 14:00 03/21/25 20:25 Atenolol 50 Mg Tablet PO 50 mg Q24H MIREYA Administration Bupropion HCl 100 mg 03/21/25 21:00 03/21/25 20:26 Bupropion Hcl Sr (12hr) 100 Mg Tabcr PO 100 mg HS MIREYA Administration Cyanocobalamin 500 mcg 03/21/25 21:00 03/21/25 20:26 Cyanocobalamin 500 Mcg Tablet PO 500 mcg HS MIREYA Administration Famotidine 40 mg 12/21/25 09:00 Famotidine 20 Mg Tablet PO DAILY [facility] Sodium Chloride 1,000 mls @ 125 mls/hr 03/20/25 23:00 03/21/25 18:04 Normal Saline Iv IV CONT Not Given .Q8H MIREYA Levothyroxine Sodium 200 mcg 03/22/25 06:30 03/22/25 05:49 Levothyroxine Sodium 100 Mcg Tablet PO 200 mcg DAILY@0630 [facility] Administration Levothyroxine Sodium 50 mcg 03/22/25 06:30 03/22/25 05:49 Levothyroxine Sodium 50 Mcg Tablet PO 50 mcg DAILY@0630 [facility] Administration Miscellaneous Information 1 each 03/21/25 00:01 Nonformulary Drug (Cariprazine [Vraylar] 1.5 Mg Capsule)Can Patient Use From Home Or Hold XX 04/20/25 00:00 CLARIFY [facility] Non-Formulary Medication 1.5 mg 03/21/25 21:00 Cariprazine [Vraylar] PO 04/20/25 20:59 QHS [facility] Non-Formulary Medication 25 mg 03/21/25 09:00 Riboflavin (Vitamin B2) [Vitamin B-2] PO 04/20/25 08:59 DAILY [facility] Per P&T 1 each 03/21/25 14:07 Recommendation, XX 03/22/25 14:06 Nonformulary PRN PRN Nutritional PROTOCOL Supplements And Vitamins Will Be Put On H Ondansetron HCl 4 mg 03/21/25 22:20 03/21/25 22:34 Ondansetron Inj 4 Mg/2 Ml Vial IV PUSH 4 mg Q6H PRN Administration Nausea And Vomiting Pregabalin 100 mg 03/21/25 17:00 03/21/25 18:59 Pregabalin (*Crx) 50 Mg Capsule PO 100 mg TID [facility] Administration Sertraline HCl 200 mg 03/22/25 09:00 Sertraline Hcl 50 Mg Tablet PO QAM [facility] Vitamin D 250 mcg 03/22/25 09:00 Cholecalciferol (Vitamin D3) 125 Mcg (5,000 Units) Tablet BY MOUTH DAILY [facility] Radiology Results: ITS Impressions Head CT 03/20/25 21:01 IMPRESSION: No acute intracranial hemorrhage or extra axial fluid collections. All CT scans at this facility are performed using low dose modulation techniques as appropriate to perform exam including the following: automated exposure control; use of iterative reconstruction technique; adjustment of the mA and/or kV according to patient size (this includes techniques or standardized protocols for targeted exams where dose is matched to indication/reason for exam). Cervical Spine CT 03/20/25 21:02 IMPRESSION: No acute fracture or subluxation. All CT scans at this facility are performed using low dose modulation techniques as appropriate to perform exam including the following: automated exposure control; adjustment of the mA and/or kV according to patient size (this includes techniques or standardized protocols for targeted exams where does is matched to indication/reason for exam; i.e. extremities or head); use of iterative reconstruction technique). Labs Labs: Laboratory Results - last 24 hr 03/20/25 03/21/25 03/21/25 19:22 17:28 17:32 WBC 6.6 RBC 3.99 L Hgb 12.7 Hct 37.5 MCV 94.0 MCH 31.8 MCHC 33.9 RDW 12.3 Plt Count 364 MPV 9.3 Immature Gran % (Auto) 0.3 Neut % (Auto) 41.4 L Lymph % (Auto) 31.9 Porter % (Auto) 15.4 H Eos % (Auto) 9.8 H Baso % (Auto) 1.2 Lymph # (Auto) 2.11 Porter # (Auto) 1.0 H Eos # (Auto) 0.7 H Baso # (Auto) 0.1 Abs Immat Gran (auto) 0.02 Absolute Neuts (auto) 2.7 Absolute Nucleated RBC 0.000 Nucleated RBC % 0.0 Sodium 138 Potassium 3.9 Chloride 105 Carbon Dioxide 26 Anion Gap 7 BUN 12 Creatinine 1.16 H Estim Creat Clear Calc 108 Estimated GFR 57 L Glucose 92 POC Capillary Glucose 105 Calcium 7.2 L Total Bilirubin 0.8 AST 31 ALT 26 Alkaline Phosphatase 49 Total Protein 6.6 Albumin 3.6 Free T4 1.13 Free T3 pg/mL 3.39 03/22/25 04:43 WBC 5.9 RBC 4.14 L Hgb 13.1 Hct 39.9 MCV 96.4 MCH 31.6 MCHC 32.8 RDW 12.4 Plt Count 387 H MPV 9.4 Immature Gran % (Auto) 0.3 Neut % (Auto) 30.1 L Lymph % (Auto) 45.4 H Porter % (Auto) 12.2 H Eos % (Auto) 11.0 H Baso % (Auto) 1.0 Lymph # (Auto) 2.69 Porter # (Auto) 0.7 H Eos # (Auto) 0.7 H Baso # (Auto) 0.1 Abs Immat Gran (auto) 0.02 Absolute Neuts (auto) 1.8 Absolute Nucleated RBC 0.000 Nucleated RBC % 0.0 Sodium 139 Potassium 3.9 Chloride 106 Carbon Dioxide 28 Anion Gap 5 BUN 10 Creatinine 1.04 H Estim Creat Clear Calc 119 Estimated GFR > 60 Glucose 83 POC Capillary Glucose Calcium 7.3 L Total Bilirubin 0.9 AST 32 ALT 25 Alkaline Phosphatase 53 Total Protein 6.5 Albumin 3.6 Free T4 Free T3 pg/mL Quality VTE Prophylaxis VTE prophylaxis: mechanical ordered
[2025-03-22] MEDS: SERTRALINE HCL 50 MG TABLET 200 MG PO (09:51)
[2025-03-22] MEDS: SODIUM CHLORIDE 0.9% IV 1,000 ML 125 ML IV CONT ×2 (09:51→21:30)
[2025-03-22] MEDS: CHOLECALCIFEROL (VITAMIN D3) 125 MCG (5,000 UNITS) TABLET 250 MCG BY MOUTH (09:51)
[2025-03-22] MEDS: FAMOTIDINE 20 MG TABLET 40 MG PO (09:51)
[2025-03-22] MEDS: PREGABALIN (*CRX) 50 MG CAPSULE 100 MG PO ×3 (09:51→17:01)
--- NOTE | 2025-03-22 18:20 | WPDCNPSYCH ---
Assessment and Plan Assessment and plan (1) CATRACHO (generalized anxiety disorder): Code(s): F41.1 - Generalized anxiety disorder Status: Acute Assessment and Plan: Plan Discontinue Bupropion due to seizure history. Continue Sertraline 200 mg daily for anxiety and OCD symptoms. Continue Vraylar (cariprazine) 1.5 mg daily; patient will have brother bring the medication to the hospital to reinitiate therapy. Encourage marijuana reduction and discontinuation; patient counseled on risks of chronic cannabis use, particularly with high-THC products. Safety / Suicide Risk: Patient denies active suicidal thoughts, plan, or intent; will notify staff if symptoms worsen. Outpatient Psychiatric Follow-up: Patient agrees to follow with [facility] after discharge for ongoing psychiatric medication management. Medical / Endocrine Optimization: Main treatment focus is optimization of thyroid function, as this is likely the primary driver license reviewing officer of her anxiety and depression. Patient reports her prior clock assembler did not believe she was adherent, resulting in suboptimal thyroid management. Hospital staff to contact clock assembler to schedule follow-up appointment; patient prefers a provider other than her previous clock assembler. discussed crisis hotline number [phone] and when to seek emergency services discussed initiation of psychotherapy (2) Mood disorder: Code(s): F39 - Unspecified mood [affective] disorder Status: Acute Assessment and Plan: see intervention as listed for CATRACHO HPI Data of Consult Date/Time: 03/22/25 18:20 Requesting Physician: Carlota Mccormack DO Primary Care Provider: Kerrie Coreas APRN Consult Narrative Narrative: Mervat Caldera is a 24 year old female reports worsening anxiety, obsessive?compulsive symptoms, and mood instability over recent months. She has a known history of parathyroid cancer and is currently prescribed levothyroxine, though she reports persistently elevated TSH levels despite daily adherence, taken on an empty stomach with water. She attributes worsening anxiety and low mood to suboptimal thyroid control. She currently does not have an clock assembler due to insurance changes and reports prior concerns that her thyroid dose adjustments were not adequately addressed. The patient reports she has a psychiatric history of obsessive?compulsive disorder, generalized anxiety disorder, and bipolar. She describes episodic mood symptoms beginning after her father?s at age 18, including decreased need for sleep for several days, reckless behavior, distractibility, pressured speech, and impaired functioning. She reports that these symptoms have waxed and waned over time but have been better controlled over the past year with treatment. All prior psychiatric medications have been managed by her primary care provider; she has never been seen by a behavioral specialist. She has a history of two prior inpatient psychiatric hospitalizations, including one during childhood and a more recent admission at [facility] in December 2024. She endorses passive suicidal ideation, including thoughts that she would be better off and passive thoughts of killing herself occurring every few days, but denies plan, intent, or preparatory behaviors, and denies homicidal ideation. The patient reports a history of multiple seizures beginning in July 2024. Despite this history, she was prescribed bupropion after seizure onset; psychiatry was contacted, and the medication has since been discontinued due to seizure risk. Prior psychotropic medications include: ? Lexapro: taken at age 10?11, doses unknown ? Latuda: started after inpatient hospitalization in 2024; discontinued due to nightmares ? Abilify: discontinued due to akathisia ? Zyprexa (olanzapine): discontinued due to weight gain ? Vraylar (cariprazine): previously well tolerated; restarted in the past 2 weeks but currently unavailable at [facility]. Patient agrees to have her brother bring the medication to reinitiate therapy. She reports sleeping well currently and fair appetite, though she endorses fatigue, low motivation, and health-related worry. Anxiety symptoms are present daily, including persistent nervousness and inability to control worry. On standardized screening, her Baker Depression Inventory (BDI) score is 46, consistent with severe depression, and her CATRACHO-7 score is 15, consistent with moderate to severe anxiety. Substance use history: She endorses chronic cannabis use since age 16, primarily Indica from a dispensary, with 1 gram lasting approximately 5 days. She also reports daily nicotine vaping, with one cartridge lasting approximately 10 days. She denies other illicit substance use. Family psychiatric history: Significant for paternal side ? paternal grandfather had dementia and her father had depression. Review of Systems Psychiatric: Psychiatric: Reports anxiety, Reports depression, Reports difficulty concentrating, Reports anhedonia and Reports suicidal ideation (passive SI no plan/intent) [facility] Past Medical History Medical History (Updated 03/22/25 @ 18:38 by Les Jane, AIR QUALITY TECHNICIAN) FHx: thyroid cancer Lateral malleolar fracture Binge eating disorder Has less than high school diploma OCD (obsessive compulsive disorder) History of thyroid cancer Suicidal ideation Arthritis Endometriosis Seizures Tachycardia Hypertension Hypothyroidism Depression Anxiety Thyroid cancer Surgical History Surgical History H/O partial thyroidectomy Right, 04/10/2018 Family History Family History Mother Asthma Depression Father Hypertension Depression Alcoholism Grandparent Breast cancer Social History Social History Smoking packs per day: 1 Smoking cigarettes per day: 20.0 Years smoked: 4 Smoking pack-years: 4.00 Smoking status: Current every day smoker Tobacco type: e-cigarettes/vaping Smoking end date: 04/02/20 Additional smoking assessment comments: Vapes now 8 years Alcohol intake: never Substance use: current Substance use type: marijuana and other Other substance usage details: Vapes and Marijuana smokes daily Lack of Transportation: No Lack of Food: Sometimes True Current Housing: I Have Housing Concerned About Future Housing: No Difficulty Paying Gas/Electric Bills: No Difficulty Paying for Meds: No Currently Unemployed: No Education: Grade School Difficulty w/ Childcare or Family Care: No Living arrangements: with family Additional living arrangements comments: Brother Spiritual care concerns: No Meds Home Medications and Allergies Home Medications ?Medication ?Instructions ?Recorded ?Confirmed ?Type acetaminophen 500 mg capsule 1,000 mg (2 x 500 mg) PO Q6H PRN 08/23/24 03/21/25 Rx pain #30 caps cyanocobalamin (vitamin B-12) 500 500 mcg PO HS 02/04/25 03/21/25 History mcg tablet pregabalin 100 mg capsule 100 mg PO TID 02/04/25 03/21/25 History tramadol 50 mg tablet 50 mg PO PRN 02/04/25 03/21/25 History cariprazine 1.5 mg capsule 1.5 mg PO QHS #30 caps 02/17/25 03/21/25 Rx (Vraylar) famotidine 40 mg tablet 40 mg PO DAILY #30 tabs 02/17/25 03/21/25 Rx sertraline 200 mg capsule 200 mg PO DAILY #30 caps 02/17/25 03/21/25 Rx Vitamin D 10,000 units BYMOUTH DAILY 03/21/25 03/21/25 History atenolol 50 mg tablet 50 mg PO HS 03/21/25 03/21/25 History bupropion HCl 100 mg tablet,12 hr 100 mg PO HS 03/21/25 03/21/25 History sustained-release (Wellbutrin SR) levothyroxine 200 mcg tablet 200 mcg PO .am 03/21/25 03/21/25 History levothyroxine 50 mcg tablet 50 mcg PO .am 03/21/25 03/21/25 History (Levoxyl) riboflavin (vitamin B2) 25 mg 25 mg PO DAILY 03/21/25 03/21/25 History tablet (Vitamin B-2) Allergies Allergy/AdvReac Type Severity Reaction Status Date / Time adhesive tape Allergy Intermediate Rash Verified 03/21/25 19:33 latex Allergy Mild Rash Verified 03/21/25 19:33 lactose AdvReac Intermediate Diarrhea Verified 03/21/25 19:33 amoxicillin AdvReac Hives Verified 03/21/25 19:33 Vital Signs Vital Signs - 24 hr 03/21/25 18:58 03/21/25 20:00 03/21/25 20:00 Temperature Pulse Rate 80 69 Respiratory Rate Blood Pressure Pulse Oximetry Oxygen Delivery Room Air 03/21/25 20:25 03/21/25 21:19 03/22/25 00:00 Temperature 98.3 F Pulse Rate 74 68 63 Respiratory Rate 18 Blood Pressure 138/83 Pulse Oximetry 97 Oxygen Delivery 03/22/25 04:00 03/22/25 06:00 03/22/25 09:30 Temperature 97.2 F L Pulse Rate 61 60 Respiratory Rate 18 Blood Pressure 123/78 Pulse Oximetry 98 Oxygen Delivery Room Air 03/22/25 09:30 03/22/25 12:00 Temperature Pulse Rate 51 L 80 Respiratory Rate Blood Pressure Pulse Oximetry Oxygen Delivery Exam Psych: Appearance: grossly normal (became tearful when talking about her father's ) Mental Status: mental status grossly normal Speech and movement: Normal speech and movement present and Clear speech present Affect: normal affect and Sad affect present Attitude: cooperative Thought process: Normal thought process present Thought content: Yes Depressive thoughts present Insight: Good insight present (Psych) Judgement: Good judgement present (Psych) Results Labs 03/22/25 04:43 03/22/25 04:43 Labs: Short CBC 03/22/25 Range/Units 04:43 WBC 5.9 (4.5-10.0) K/mm3 Hgb 13.1 (12.0-15.0) g/dL Hct 39.9 (37.0-47.0) % Plt Count 387 H (150-375) k/mm3 BMP 03/22/25 04:43 Sodium 139 Potassium 3.9 Chloride 106 Carbon Dioxide 28 BUN 10 Creatinine 1.04 H Glucose 83 Calcium 7.3 L Liver Function 03/22/25 Range/Units 04:43 Total Bilirubin 0.9 (0.2-1.3) mg/dL AST 32 (14-36) U/L ALT 25 (6-35) U/L Alkaline Phosphatase 53 (38-126) U/L Albumin 3.6 (3.5-5.1) g/dL
--- NOTE | 2025-03-22 18:30 | PC.NURSE ---
Psychiatrist assessed patient and said she should follow up with a new tile grinder because the patient stated that the previous one did not listen to her. Pt needs to take her Vraylar she can't miss days of that medication. The pt is having her brother bring it tomorrow. The psychiatrist wants to follow up out patient with her.
[2025-03-22] MEDS: CYANOCOBALAMIN 500 MCG TABLET PO (21:31)
[2025-03-22] MEDS: ACETAMINOPHEN 325 MG TABLET 650 MG PO (21:38)
[2025-03-23] VITALS (7 sets, daily range): BP systolic 111–132; BP diastolic 68; PULSE 57–79; RESP 16–18; TEMP 36.3–36.4; O2SAT 97
[2025-03-23 05:38] LABS: Hematocrit 38.5 % (37.0-47.0); Hemoglobin 12.7 g/dL (12.0-15.0); Immature Granulocyte Percent A 0.4 % (0-0.5); Lymphocytes Absolute Auto 2.58 K/mm3 (0.9-3.2); Mean Corpuscular HGB Conc 33.0 g/dl (32-36); Mean Corpuscular Hemoglobin 31.4 pg (26-34); Mean Corpuscular Volume 95.1 fl (80-100); Nucleated Red Blood Cells Absolute Auto 0.000 K/mm3 (0.0-0.012); Nucleated Red Blood Cells Perc 0.0 % (0.0-0.2); Platelet Count Result 368 k/mm3 (150-375); Red Blood Count 4.05 M/mm3 (4.2-5.4); White Blood Count 7.6 K/mm3 (4.5-10.0)
[2025-03-23] MEDS: SODIUM CHLORIDE 0.9% IV 1,000 ML 125 ML IV CONT (05:47)
[2025-03-23] MEDS: LEVOTHYROXINE SODIUM 50 MCG TABLET PO (05:47)
[2025-03-23] MEDS: LEVOTHYROXINE SODIUM 100 MCG TABLET 200 MCG PO (05:48)
[2025-03-23 06:05] LABS: Alanine Aminotransferase 23 U/L (6-35); Albumin Level 3.5 g/dL (3.5-5.1); Alkaline Phosphatase 46 U/L (38-126); Anion Gap 7 mmol/L (4-12); Aspartate Amino Transferase 26 U/L (14-36); Bilirubin,Total 0.6 mg/dL (0.2-1.3); Blood Urea Nitrogen 13 mg/dL (7-17); Calcium 7.2 mg/dL (8.4-10.2); Carbon Dioxide 24 mmol/L (22-30); Chloride 106 mmol/L (98-107); Estimated CRCL calculation 122 ml/min; Estimated Glomerular Filt Rate > 60; Glucose 88 mg/dL (65-110); Potassium 3.8 mmol/L (3.4-5.0); Sodium 137 mmol/L (137-145); Total Protein 6.4 g/dL (6.3-8.2)
[2025-03-23] MEDS: PREGABALIN (*CRX) 50 MG CAPSULE 100 MG PO ×2 (08:29→12:52)
[2025-03-23] MEDS: SERTRALINE HCL 50 MG TABLET 200 MG PO (08:29)
[2025-03-23] MEDS: FAMOTIDINE 20 MG TABLET 40 MG PO (08:29)
[2025-03-23] MEDS: CHOLECALCIFEROL (VITAMIN D3) 125 MCG (5,000 UNITS) TABLET 250 MCG BY MOUTH (08:30)
--- NOTE | 2025-03-23 14:24 | PM.DS ---
DS: Admitting Diagnosis Discharge Date 03/23/2025 Admitting Diagnosis Seizure DS: Discharge Diagnosis Discharge Diagnosis (1) Seizure: Code(s): R56.9 - Unspecified convulsions Status: Acute Assessment and Plan: CT head: No acute intracranial hemorrhage or extra axial fluid collections. Cervical Spine CT: No acute fracture or subluxation. MRI brain, EEG pending (will likely be completed tomorrow) neuro checks UDS: + for cannabinoid neuro consult seizure precautions (2) Hypothyroidism: Code(s): E03.9 - Hypothyroidism, unspecified Status: Acute Assessment and Plan: History of parathyroid cancer and has had part of her thyroid and parathyroid removed Continue levothyroxine TSH 36.5 Free T4, T3 wnl (3) Anxiety and depression: Code(s): F41.9 - Anxiety disorder, unspecified; F32.A - Depression, unspecified Status: Acute Assessment and Plan: Continue at home medications DS: Summary Hospital Course Reason for hospitalization: Seizure Hospital Course: Mervat Caldera is a 24?year?old female with a history of hypothyroidism status post partial thyroidectomy, anxiety, depression, OCD, and prior seizure?like episodes who was admitted on 03/20/25 following an episode of loss of consciousness with generalized shaking while shopping. In the ED, she was tachycardic and hypertensive but otherwise hemodynamically stable. Initial workup revealed leukocytosis, mild creatinine elevation, markedly elevated TSH (36.5) with normal free T3 and T4, CK of 200, and urine drug screen positive for cannabinoids. CT head and cervical spine were negative for acute pathology. She was admitted for further evaluation of recurrent seizure?like activity with seizure precautions and neurology consultation. During hospitalization, she remained neurologically intact without recurrent events, with stable vital signs and labs showing resolution of leukocytosis and improvement in renal function, though calcium remained mildly low. MRI brain and EEG were ordered and pending at the time of this summary. Hypothyroidism was managed with continuation of home levothyroxine, with emphasis on outpatient endocrine follow?up for poor biochemical control despite reported adherence. Psychiatry was consulted for worsening anxiety, depression, and mood instability in the context of medical illness and seizure history; bupropion was discontinued due to seizure risk, while sertraline and cariprazine were continued. She endorsed passive suicidal ideation without plan or intent and was deemed safe with close monitoring and outpatient psychiatric follow?up arranged. She was counseled on cannabis reduction given possible contribution to seizure threshold. Throughout admission, she remained clinically stable, alert, and oriented, with no further seizure activity, and plans focused on completion of neurologic workup and coordination of outpatient neurology, endocrinology, and psychiatry care. An EEG was performed on 03/23 per Neurology. Discussed with Dr. Bradshaw who recommended discharge at this time with appropriate seizure precautions. Recommend that she follow-up in his office in the outpatient setting in 3-4 weeks. We will provide her the appropriate follow-up information along with a prescription for Keppra and will educate on avoiding driving until she can be evaluated by Neurology. Dr. Bradshaw regarding the results of the EEG. She is otherwise hemodynamically stable for discharge at this time. Status at Discharge Functional status at discharge: independent ambulation Overall status at discharge: patient is back to baseline Time Spent with Patient Time attestation: Total time spent providing and/or coordinating discharge services: 31 Exam Narrative: Gen - well appearing female in no acute respiratory distress who is nontoxic-appearing lying semi recumbent in bed HEENT - normocephalic. ?Atraumatic. ?Pupils equal round and reactive.?Oropharynx was clear. ?No oral lesions. ?Moist mucous membranes. ?Palate bunny symmetrically. ?No facial asymmetry. Neck - neck was supple. ?No dominant adenopathy, thyromegaly or masses. Chest - lungs are clear to auscultation bilaterally. ?No wheezes or crackles. CV - heart was regular rate and rhythm. ?S1-S2. ?No murmurs gallops or rubs. Abd - abdomen was soft. ?Nontender. ?Nondistended. ?Positive bowel sounds. ?No organomegaly or masses. Ext - no clubbing, cyanosis or edema. ?2+ DP pulses bilaterally. Neuro - patient is alert and oriented x4. ?Strength is 5/5 in both upper and lower extremities. ?Cranial nerves 2-12 are intact. ?Speech is clear. Psych - normal mood and affect. ?Patient is pleasant and cooperative. Skin - warm and dry. ?No rashes noted. DS: Data Data Completed and Pending Labs on day of discharge: Labs from last 24 hours 03/23/25 03/21/25 04:37 17:32 WBC 7.6 RBC 4.05 L Hgb 12.7 Hct 38.5 MCV 95.1 MCH 31.4 MCHC 33.0 RDW 12.0 Plt Count 368 MPV 9.8 Immature Gran % (Auto) 0.4 Neut % (Auto) 44.6 L Lymph % (Auto) 34.2 [place] % (Auto) 11.8 H Eos % (Auto) 8.2 H Baso % (Auto) 0.8 Lymph # (Auto) 2.58 [place] # (Auto) 0.9 H Eos # (Auto) 0.6 H Baso # (Auto) 0.1 Abs Immat Gran (auto) 0.03 Absolute Neuts (auto) 3.4 Absolute Nucleated RBC 0.000 Nucleated RBC % 0.0 Sodium 137 Potassium 3.8 Chloride 106 Carbon Dioxide 24 Anion Gap 7 BUN 13 Creatinine 1.01 H Estim Creat Clear Calc 122 Estimated GFR > 60 Glucose 88 Calcium 7.2 L Total Bilirubin 0.6 AST 26 ALT 23 Alkaline Phosphatase 46 Total Protein 6.4 Albumin 3.5 Thyroid Peroxidase Ab 10 Discharge Plan Discharge Attending physician on discharge: Mitch Santizo Consulting providers: Mark Anthony Zaldivar; Dontrell Solis; Les Jane Discharging Clinician: Mark Anthony Zaldivar Anticipated Discharge Date/Time: 03/23/25 14:20 Patient Disposition: Home Activity: no driving and as tolerated Diet: regular Discharge Instructions: Discharge disposition: Home Take medications as prescribed. You will be discharged Keppra - continue taking this until you can be seen by Neurology. Monitor blood pressures Take caution while standing, rising, or moving Change positions slowly taking a break between each position change If you standing feel dizzy sit back down and take a break Encouraged to continue with yearly vaccinations Return to the emergency department if you develop sudden shortness of breath, chest pain, nausea, vomiting, upset stomach or intractable diarrhea Return to the emergency department if you develop fever greater than 101.5 Follow-up with the primary care physician within 1-2 weeks Follow-up with neurology as soon as possible -avoid driving until he can meet with Dr. Bradshaw. Thank you for choosing [facility] for your healthcare needs Patient Instructions: Antibiotic Form Patient Language: Arabic Stand Alone Forms: General Discharge Information Follow-up/Referrals: Kerrie Coreas APRN [Primary Care Provider, Family Practice] Sumanth Bradshaw MD [Physician, Neurology] Discharge Medications: New levetiracetam [Keppra] 500 mg tablet 500 mg PO BID Qty: 60 0RF Continued famotidine 40 mg tablet 40 mg PO DAILY Qty: 30 6RF sertraline 200 mg capsule 200 mg PO DAILY Qty: 30 6RF Vraylar 1.5 mg capsule 1.5 mg PO QHS Qty: 30 1RF Rx Instructions: Weaning off Latuda. Start taking one Capsule nightly. tramadol 50 mg tablet 50 mg PO PRN cyanocobalamin (vitamin B-12) 500 mcg tablet 500 mcg PO HS pregabalin 100 mg capsule 100 mg PO TID acetaminophen 500 mg capsule 1,000 mg PO Q6H PRN (Reason: pain) Qty: 30 0RF riboflavin (vitamin B2) [Vitamin B-2] 25 mg tablet 25 mg PO DAILY Vitamin D 10,000 units BYMOUTH DAILY Patient Comments: Pt. states she takes 10,000 units of Vitamin D by mouth Daily. levothyroxine [Levoxyl] 50 mcg tablet 50 mcg PO .am levothyroxine 200 mcg tablet 200 mcg PO .am atenolol 50 mg tablet 50 mg PO HS Discontinued bupropion HCl [Wellbutrin SR] 100 mg tablet sustained-release 12 hr 100 mg PO HS Date of admission: 03/21/25 13:52 Primary Care Provider: Kerrie Coreas Admitting Provider: Carlota Mccormack Attending physician on admission: Carlota Mccormack Condition: Stable Quality VTE Prophylaxis VTE prophylaxis: mechanical ordered
--- OUTSIDE RECORDS SUMMARY | 2025-03-24 09:05 | XMS_ITS | Data Portability ---
Author Organization [facility] Address [address] [place] [address] Assessment Encounter Date Assessment Date Assessment LastModified [...] Lab hsv-2 igg Ab, serum 2023 [facility] (Lab), [address] [place], [address], 4 02:06:20 hbcab (hepatitis B core Ab) igm, serum [address] [facility] (Lab), [address] [place], [address], 4 02:06:20 HBsAg (hepatitis B surface Ag), serum [address] [facility] (Lab), [address] [place], [address], 4 02:06:17 hepatitis C virus Ab, serum [address] [facility] (Lab), [address], [place], [address], 4 02:06:18 HIV 1+2 AB + HIV 1 p24 Ag, qualitative immunoassay , serum [address] [facility] (Lab), [address], [place], [address], 4 02:06:17 RPR (rapid plasma reagin), serum [address] [facility] (Lab), [address], [place], [address], 4 02:06:20 CBC w/ auto diff [address] [facility] (Lab), [address], [place], [address], 4 02:06:16 dhea-sulfat e, serum [address] [facility] (Lab), [address], [place], [address], 4 02:06:17 hormone panel, serum or plasma [address] [facility] (Lab), [address], [place], [address], 4 02:06:19 progesteron e, serum [address] [facility] (Lab), [address], [place], [address], 4 02:06:18 prolactin, serum [address] [facility] (Lab), [address], [place], [address], 4 02:06:18 shbg (sex hormone-bin ding globulin), serum [address] [facility] (Lab), [address], [place], [address], 4 02:06:18 TSH, serum or plasma [address] [facility] (Lab), [address], [place], [address], 4 02:06:19 testosteron e free/testos terone total, ratio, serum [address] [facility] (Lab), [address], [place], [address], 4 02:06:20 urinalysis, dipstick 2022 023 [email or web address], [address], [place], [address], 3 11:45:12 Referral None recorded. Procedures None recorded. Surgeries laparoscopy , diagnostic (SURG) 2024 025 [id number], [facility] [address], [place], [address], 5 14:34:35 Imaging US, pelvis 2023 024 [email or web address], [address], [address], [place], [address], 4 20:23:49 US, transvagina l 2023 024 [email or web address] [facility], [address], [address], [place], [address], 4 20:23:49 Medication Orders Macrobid 100 mg capsule 2022 [facility]23 [id number], [address], [place], [id number], 4 16:18:20 Patient TargetsNo targets recorded. 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 Not Available [facility] (Lab) [address], [place], [address], 10/13/2022 19:56:22 10/12/19 23 10/11/2022 TRICH OMONA S VAGIN CUCA (RRNA ) trichomonas vaginalis ribosomal RNA (rrna) Negati ve negati ve Not Available [facility] (Lab) [address] [place], [address], 10/13/2022 19:56:23 10/12/19 23 10/11/2022 CT/GC (STEFANY) , THINP REP VIAL chlamydia trachomatis, PCR Negati ve negati ve Not Available [facility] (Lab) [address] [place], [address], 10/13/2022 19:56:24 10/12/19 23 10/11/2022 CT/GC (STEFANY) , THINP REP VIAL neisseria gonorrhoeae, PCR Negati ve negati ve Not Available [facility] (Lab) [address], [place], [address], 10/13/2022 19:56:24 10/12/19 23 10/11/2022 urina lysis , dipst ick Protein trace Not Available [facility] [address], [place], [address], 10/11/2022 11:34:25 10/12/19 23 10/11/2022 urina lysis , dipst ick pH 5 Not Available [facility] [address], [place], [address], 10/11/2022 11:34:25 10/12/19 23 10/11/2022 urina lysis , dipst ick Specific [place] 1.015 Not Available [facility] [address], [place], [address], 10/11/2022 11:34:25 03/12/20 24 03/12/2024 CT/GC AND TRICH OMONA S VAGIN CUCA (RRNA ), URINE chlamydia trachomatis, PCR Negati ve negati ve Not Available [facility] (Lab) [address], [place], [address], 03/13/2024 13:33:23 03/12/20 24 03/12/2024 CT/GC AND TRICH OMONA S VAGIN CUCA (RRNA ), URINE neisseria gonorrhoeae, PCR Negati ve negati ve Not Available [facility] (Lab) [address], [place], [address], 03/13/2024 13:33:23 03/12/20 24 03/12/2024 CT/GC AND TRICH OMONA S VAGIN CUCA (RRNA ), URINE trichomonas vaginalis ribosomal RNA (rrna) Negati ve negati ve Not Available [facility] (Lab) [address], [place], [address], 03/13/2024 13:33:23 03/12/20 24 03/12/2024 CBC W/DIF F WBC 10.2 10'3/ uL 3.5-10 .5 Not Available [facility] (Lab) [address], [place], [address], 03/18/2024 02:06:16 03/12/20 24 03/12/2024 CBC W/DIF F RBC 4.76 10'6/ uL (based on docume nted legal sex) 3.80-5 .20 Not Available [facility] (Lab) [address], [place], [address], 03/18/2024 02:06:16 03/12/20 24 03/12/2024 CBC W/DIF F HGB 15.1 g/dL (based on docume nted legal sex) 11.6-1 5.4 Not Available [facility] (Lab) [address], [place], [address], 03/18/2024 02:06:16 03/12/20 24 03/12/2024 CBC W/DIF F HCT 46.6 % (based on docume nted legal sex) 34.0-4 5.0 high Not Available [facility] (Lab) [address], [place], [address], 03/18/2024 02:06:16 03/12/20 24 03/12/2024 CBC W/DIF F MCV 97.9 fL 80.0-9 9.0 Not Available [facility] (Lab) [address], [place], [address], 03/18/2024 02:06:16 03/12/20 24 03/12/2024 CBC W/DIF F MCH 31.7 pg 27.0-3 4.0 Not Available [facility] (Lab) [address], [place], [address], 03/18/2024 02:06:16 03/12/20 24 03/12/2024 CBC W/DIF F MCHC 32.4 g/dL 32.0-3 5.5 Not Available [facility] (Lab) [address], [place], [address], 03/18/2024 02:06:16 03/12/20 24 03/12/2024 CBC W/DIF F RDW 12.9 % 11.0-1 5.0 Not Available [facility] (Lab) [address], [place], [address], 03/18/2024 02:06:16 03/12/20 24 03/12/2024 CBC W/DIF F plt 419 10'3/ uL 150-40 0 high Not Available [facility] (Lab) [address], [place], [address], 03/18/2024 02:06:16 03/12/20 24 03/12/2024 CBC W/DIF F MPV 10.5 fL 8.8-12 .1 Not Available [facility] (Lab) [address], [place], [address], 03/18/2024 02:06:16 03/12/20 24 03/12/2024 CBC W/DIF F NRBC's 0.0 % 0.0 Not Available [facility] (Lab) [address], [place], [address], 03/18/2024 02:06:16 03/12/20 24 03/12/2024 CBC W/DIF F absolute NRBCs 0.0 10'3/ uL no refere nce range establ ished Not Available [facility] (Lab) [address], [place], [address], 03/18/2024 02:06:16 03/12/20 24 03/12/2024 CBC W/DIF F neutrophils 62.8 % 34.0-7 3.0 Not Available [facility] (Lab) [address], [place], [address], 03/18/2024 02:06:16 03/12/20 24 03/12/2024 CBC W/DIF F lymphocytes 24.6 % 15.0-5 0.0 Not Available [facility] (Lab) [address], [place], [address], 03/18/2024 02:06:16 03/12/20 24 03/12/2024 CBC W/DIF F monocytes 9.7 % 1.0-15 .0 Not Available [facility] (Lab) [address], [place], [address], 03/18/2024 02:06:16 03/12/20 24 03/12/2024 CBC W/DIF F eosinophils 1.4 % 0.0-8. 0 Not Available [facility] (Lab) [address], [place], [address], 03/18/2024 02:06:16 03/12/20 24 03/12/2024 CBC W/DIF F basophils 1.0 % 0.0-2. 0 Not Available [facility] (Lab) [address], [place], [address], 03/18/2024 02:06:16 03/12/20 24 03/12/2024 CBC W/DIF F immature granulocytes 0.5 % no define d refere nce range Not Available [facility] (Lab) [address] [place], [address], 03/18/2024 02:06:16 03/12/20 24 03/12/2024 CBC W/DIF F absolute neutrophils 6.4 10'3/ uL 1.5-8. 0 Not Available [facility] (Lab) [address] [place], [address], 03/18/2024 02:06:16 03/12/20 24 03/12/2024 CBC W/DIF F absolute lymphocytes 2.5 10'3/ uL 1.0-4. 0 Not Available [facility] (Lab) [address], [place], [address], 03/18/2024 02:06:16 03/12/20 24 03/12/2024 CBC W/DIF F absolute monocytes 1.0 10'3/ uL 0.2-1. 0 Not Available [facility] (Lab) [address], [place], [address], 03/18/2024 02:06:16 03/12/20 24 03/12/2024 CBC W/DIF F absolute eosinophils 0.1 10'3/ uL 0.0-0. 6 Not Available [facility] (Lab) [address], [place], [address], 03/18/2024 02:06:16 03/12/20 24 03/12/2024 CBC W/DIF F absolute basophils 0.1 10'3/ uL 0.0-0. 3 Not Available [facility] (Lab) [address], [place], [address], 03/18/2024 02:06:16 03/12/20 24 03/12/2024 CBC W/DIF [...] resul ts are expec carol. Not Available [facility] (Lab) [address], [place], [address], 03/18/2024 02:06:16 03/12/20 24 03/12/2024 HEPAT ITIS B SURFA CE ANTIG EN hepatitis B surface antigen Non-re active non-re active This assay was perfo rmed using [employer] n reage nts and test kits. Value s obtai cora with other assay metho ds or kits canno t be used inter daily eably . Not Available [facility] (Lab) [address], [place], [address], 03/18/2024 02:06:17 03/12/20 24 03/12/2024 HIV 1/2 ANTIG EN/AN TIBOD Y, REFLE X CONFI RMATI ON HIV antigen/anti body Nonrea ctive nonrea ctive HIV-1 antig en and HIV-1 /HIV- 2 antib odies were not detec carol. No labor atory evide nce of HIV infec tion. Not Available [facility] (Lab) [address], [place], [address], 03/18/2024 02:06:17 03/12/20 24 03/12/2024 DHEA SULFA TE DHEA-sulfate 144 ug/dL Femal e Range s Age(y ) Range (ug/d L) 10-15 34-28 0 15-20 65-36 8 20-25 148-4 07 25-35 99-34 0 35-45 61-33 7 45-55 35-25 6 55-65 19-20 5 65-75 9-246 > 75 12-15 4 Not Available [facility] (Lab) [address], [place], [address], 03/18/2024 02:06:17 03/12/20 24 03/12/2024 HEPAT ITIS C ANTIB ANIKET SCREE N, REFLE X TO CONFI RMATI ON hepatitis C antibody Non-re active non-re active Antib odies to HCV Not Detec carol, does not exclu de the possi bilit y of expos ure to HCV. Not Available [facility] (Lab) [address], [place], [address], 03/18/2024 02:06:18 03/12/20 24 03/12/2024 HUMAN SEX HORMO NE HANNAH NG GLOBU [place] sex hormone binding globulin 16.8 nmole s/L 18.2-1 35.5 low Not Available [facility] (Lab) [address], [place], [address], 03/18/2024 02:06:18 03/12/20 24 03/12/2024 PROLA CTIN prolactin, total 25.70 NG/mL 4.79-2 3.30 high This assay was perfo rmed using [employer] reage nts and test kits. Value s obtai cora with other assay metho ds or kits canno t be used inter [facility] . Not Available [facility] (Lab) [address] [place], [address], 03/18/2024 02:06:18 03/12/20 24 03/12/2024 PROGE STERO NE progesterone 6.69 NG/mL This assay was perfo rmed using [employer] reage nts and test kits. Value s obtai cora with other assay metho ds or kits canno t be used inter [facility] . Femal e Proge stero ne Range s: Folli cular phase 0.06- 0.89 ng/mL Ovula tion phase 0.12- 12.00 ng/mL Lutea l phase 1.83- 23.90 ng/mL Postm enopa usal <0.05 -0.13 ng/mL Healt hy Pregn ant Women 1st Trime ster 11.0- 44.30 2nd Trime ster 25.40 -83.3 0 3rd Trime ster 58.70 -214. 00 Not Available [facility] (Lab) [address] [place], [address], 03/18/2024 02:06:18 03/12/20 24 03/12/2024 FSH, LH, ESTRA DIOL estradiol 95.5 pg/mL This assay was perfo rmed using [employer] reage nts and test kits. Value s obtai cora with other assay metho ds or kits canno t be used inter [facility] . Femal e Estra diol Range s: Folli cular phase 12.4- 233 pg/mL Ovula tion phase 41.0- 398 pg/mL Lutea l phase 22.3- 341 pg/mL Postm enopa usal <5-13 8 pg/mL Healt hy Pregn ant Women 1st Trime ster 154-3 243 pg/mL 2nd Trime ster 1561- 02666 pg/mL 3rd Trime ster 8525- >3000 0 pg/mL Not Available [facility] (Lab) [address], [place], [address], 03/18/2024 02:06:19 03/12/20 24 03/12/2024 FSH, LH, [...] use: 25.8- 134.8 mIU/m L Not Available [facility] (Lab) [address], [place], [address], 03/18/2024 02:06:19 03/12/20 24 03/12/2024 FSH, LH, [...] use: 7.7-5 8.5 mIU/m L Not Available [facility] (Lab) [address] [place], [address], 03/18/2024 02:06:19 03/12/20 24 03/12/2024 T4 FREE T4, free 0.77 NG/dL 0.60-1 .40 This assay is susce ptibl e to inter feren ce from high level s of bioti n which may false ly eleva te resul ts. Belinda e ev late with clini clifford findi ngs. Not Available [facility] (Lab) [address], [place], [address], 03/18/2024 02:06:19 03/12/20 24 03/12/2024 TSH, REFLE X FREE T4 TSH 101.21 uIU/m L 0.30-5 .33 high Not Available [facility] (Lab) [address] [place], [address], 03/18/2024 02:06:19 03/12/20 24 03/12/2024 HERPE S SIMPL EX VIRUS TYPE 2 SPECI FIC AB, IGG herpes simplex virus 2 IgG Negati ve negati ve Not Available [facility] (Lab) [address], [place], [address], 03/18/2024 02:06:20 03/12/20 24 03/12/2024 HERPE S SIMPL EX VIRUS TYPE 2 SPECI FIC AB, IGG herpes simples virus 2 IgG, quant <0.2 ai 0.0-0. 8 Not Available [facility] (Lab) [address] [place], [address], 03/18/2024 02:06:20 03/12/20 24 03/12/2024 HEPAT ITIS B CORE, IGM hepatitis B core IgM antibody Non-re active non-re active IgM anti- HBc not detec carol. Does not exclu de the possi bilit y of expos ure to or infec tion with HBV. Not Available [facility] (Lab) [address] [place], [address], 03/18/2024 02:06:20 03/12/20 24 03/12/2024 RPR SCREE N, REFLE X TITER /CONF IRMAT ION RPR screen Nonrea ctive nonrea ctive Not Available [facility] (Lab) [address] [place], [address], 03/18/2024 02:06:20 03/12/20 24 03/12/2024 TESTO STERO [...] cteri stics have been deter mined by [employer] [place] [place], [place]. It has not been clear ed or appro thu by the U.S. Food and Drug Admin istra tion. This assay has been valid ated pursu ant to the CLIA regul ation s and is used for clini clifford purpo ses. Not Available [facility] (Lab) [address], [place], [address], 03/18/2024 02:06:20 03/12/20 24 03/12/2024 TESTO STERO NE, FREE( DIALY SIS) AND TOTAL (LC/M S/MS) testosterone , free 5.1 pg/mL 0.1-6. 4 This test was devel oped and its genia tical perfo rmanc e nasra cteri stics have been deter mined by [employer] [place], [place]. It has not been clear ed or appro thu by the U.S. Food and Drug Admin istra tion. This assay has been valid ated pursu ant to the CLIA regul ation s and is used for clini clifford purpo ses. Perfo rming Organ izati on [facility] n: Site ID: AMD Name: [employer] Brian ls Insti annika Addre ss: [id number] [facility] [employer] [place], [place] Direc tor: Allegra Archibald MD PhD Not Available [facility] (Lab) [address], [place], [address], 03/18/2024 02:06:20 03/27/20 24 03/27/2024 PLATE LET COUNT plt 416 10'3/ uL 150-40 0 high Not Available [facility] (Lab) [address], [place], [address], 03/28/2024 05:46:43 03/27/20 24 03/27/2024 TSH TSH 81.15 uIU/m L 0.30-5 .33 high Not Available [facility] (Lab) [address], [place], [address], 03/28/2024 05:46:44 02/14/20 24 02/14/2024 US, pelvi s No observ ation record ed. [email or web address], [place], [address], 02/14/2024 18:05:32 02/14/20 24 02/14/2024 US, victoria hart No observ ation record ed. [email or web address] [address] , [place], [address], 02/14/2024 18:05:41 02/14/20 24 02/14/2024 US, pelvi s No observ ation record ed. [email or web address] Nereida [address] [place] [address], [place], [address], 02/14/2024 20:20:04 Result Notes None recorded. Problems Name Problem SNOMED Code Status Onset Date Resolution Date Notes Provider Name and Address Organization Details Recorded Time Finding of pattern of menstrua l cycle Completed 201509/22/2021 Menometro rrhagia;R ecorded Elsewhere : No Locati on: [facility] So urce: EHR Chron ic: N Practic e ID: [id number] Bill able Time: 10:30:00 AM Tanika Silver null, [facility] 2 15:03:[address] Concept Completed 201709/22/2021 Encntr for routine child health exam w/o abnormal findings; Recorded Elsewhere : No Locati on: [facility] So urce: EHR Chron ic: N Practic e ID: [id number] Bill able Time: 10:30:00 AM Tanika boyce [facility] 2 15:03:31 Localize d swelling , mass and lump, neck Completed 201709/22/2021 Localized swelling, mass and lump, neck;Raghavendra rded Elsewhere : No Locati on: [facility] So urce: EHR Chron ic: N Practic e ID: [id number] Bill able Time: 10:30:00 AM Tanika Silver [facility] 2 15:03:[address] Concept Completed 201709/22/2021 Well woman check w/o abnormal finding;R ecorded Elsewhere : No Locati on: [facility] So urce: EHR Chron ic: N Practic e ID: [id number] Bill able Time: 10:30:00 AM Tanika boyce [facility] 2 15:03:31 Pelvic and perineal pain [id number] Completed 201709/22/2021 Pelvic and perineal pain;Raghavendra rded Elsewhere : No Locati on: [facility] So urce: EHR Chron ic: N Practic e ID: [id number] Bill able Time: 11:00:00 AM Tanika Silver [facility] 2 15:03:31 Insertio n of intraute rine contrace ptive device Completed 201709/22/2021 Encounter for insertion of intrauter ine contracep tive device;Re corded Elsewhere : No Locati on: [facility] So urce: EHR Chron ic: N Practic e ID: [id number] Bill able Time: 01:30:00 PM Tanika Silver [facility] 2 15:03:32 Contrace ptive sheath status [id number] Completed 201809/22/2021 Encounter for routine checking of intrauter ine contracep tive device;Re corded Elsewhere : No Locati on: [facility] So urce: EHR Chron ic: N Practic e ID: [id number] Bill able Time: 09:45:[address] [facility] 2 15:03:31 Syphilis test finding [id number] Completed 201809/22/2021 Encounter for STD screening ;Recorded Elsewhere : No Locati on: [facility] So urce: EHR Chron ic: N Practic e ID: 0001 Bill able Time: 01:15:[address] [facility] 2 15:03:32 Problem Notes None recorded. Procedures Surgical History Date Name Laterality Status Provider Name and Address Organization Details Recorded Time 3 Date of Last Pap Smear completed Kerri Delaney [facility] 03/12/2024 16:19:24 9 Thyroid Surgery completed Purnima Wallace [facility] 03/14/2022 17:28:33 Imaging Results None [...] C e: Yes Loca tion: [facility] odify By: marcelina hernadez DateTime : [...] Prescrib ed Elsewher e: No [facility] By: janelle weir DateTime : 10/25/19 [...] Prescrib ed Elsewher e: No [facility] By: [email or web address] Garcia ncounter DateTime : 11/17/19 16 04:30:01 PM Not Available Not Available Not Available Lomedia 24 Fe 1 mg-20 mcg (24)/75 mg (4) tablet TAKE 1 TABLET BY ORAL ROUTE EVERY DAY 02/27 completed Prescrib ed Elsewher e: No [facility] By: janelle Garcia ncounter DateTime : [...] Updated DateTime 04/09/2024 175.26 cm 41.6 kg/m2 528572.05 g 136/86 mm[Hg] Tami Dubose [facility] 04/09/2024 16:37:02 Date Recorded Body height Body mass index (BMI) Body weight Systolic And Diastolic Provider Name and Address Organization Details Last Updated DateTime 10/11/2022 175.26 cm 46.1 kg/m2 102580.82 g 115/75 mm[Hg] Kerri Delaney [facility] 10/11/2022 11:30:12 Date Recorded Body height Body mass index (BMI) Body weight Systolic And Diastolic Provider Name and Address Organization Details Last Updated DateTime 03/12/2024 175.26 cm 40.3 kg/m2 594828.72 g 132/86 mm[Hg] Kerri Delaney [facility] 03/12/2024 16:17:16 Social History Question Answer Notes LastModified by Organizat ion Details LastModified Time Tobacco Smoking Status Never Smoker Purnima Wallace [facility] 03/14/2022 17:28:01 Are You Blind Or Do You Have Difficulty Seeing? No [email or web address] Information n ot available 03/14/2022 What Is Your Level Of Caffeine Consumption? Occasional [email or web address] Information not available 03/14/2022 In The 14 Days Before Symptom Onset, Have You Had Close Contact With A Laboratory-confirm ed COVID-19 While That Case Was Ill? No [email or web address] Information n ot available 03/14/2022 In The 14 Days Before Symptom Onset, Have You Had Close Contact With A Person Who Is Under Investigation For COVID-19 While That Person Was Ill? No [email or web address] Information not available 03/14/2022 Have You Been To An Area Known To Be High Risk For COVID-19? No [email or web address] Information not available 03/14/2022 Are You Deaf Or Do You Have Serious Difficulty Hearing? No Information not available 03/14/2022 What Type Of Diet Are You Following? REGULAR [email or web address] Information n ot available 03/14/2022 Have You Ever Been Counseled For Unhealthy Alcohol Use? No [email or web address] Information not available 03/14/2022 Do You Use Your Seat Belt Or Car Seat Routinely? Yes [email or web address] Information not available 03/14/2022 Do You Have Smoke And Carbon Monoxide Detectors In Your Home? Yes [email or web address] Information not available 03/14/2022 Do You Use Sunscreen Routinely? Yes [email or web address] Information not available 03/14/2022 Has Tobacco Cessation Counseling Been Provided? No [email or web address] Information not available 03/14/2022 Do You Have Difficulty Walking Or Climbing Stairs? No [email or web address] Information not available 03/14/2022 Sex: Unknown Functional Status Question Answer Note LastModified by Organizat ion Details LastModified Time Do you use any illicit or recreational drugs? No [email or web address] Information not available 03/14/2022 Do you or have you ever used any other forms of tobacco or nicotine? No [email or web address] Information not available 03/14/2022 What is your level of alcohol consumption? Occasional [email or web address] Information not available 03/14/2022 Are you able to walk independently without assistance or assistive devices? YESWOREST [email or web address] Information not available 03/14/2022 Are you able to care for yourself independently? Yes [email or web address] Information not available 03/14/2022 Do you have difficulty dressing, bathing, grooming, or toileting? No [email or web address] Information not available 03/14/2022 What is your exercise level? Occasional [email or web address] Information not available 03/14/2022 Mental Status Question Answer Note LastModified by Organization D etails LastModified Time Do you feel stressed (tense, restless, nervous, or anxious, or unable to sleep at night)? [id number] Information not available 03/14/2022 Family History Relationship Description Onset Age of this Age Resolved Age Notes LastModified by Organization Details LastModified Time Mother Asthma [email or web address] Not available 11/26/2019 16:58:51 Paternal Grandfather Diabetes mellitus [email or web address] Not available 11/25 16:59:00 Paternal Grandfather Hypertensive disorder [email or web address] Not available 11/25 16:59:09 Paternal Grandfather Heart disease [email or web address] Not available 11/25 16:59:22 Paternal Grandfather Malignant neoplasm of colon [email or web address] Not available 11/25 16:59:34 Maternal Grandmother Heart disease [email or web address] Not available 11/25 16:59:55 Maternal Grandmother Hypertensive disorder [email or web address] Not available 11/25 17:00:08 Maternal Grandfather Heart disease [email or web address] Not available 11/25 17:00:21 Father Asthma [email or web address] Not available 11/26/2019 17:00:34 Paternal Grandmother Malignant neoplasm of breast [email or web address] Not available 2024 16:37:55 Medical History Condition [...] ICD10 Code Diagnosis IMO Codes Diagnosis Note [id number] Magali Gleason [facility] [address],[place] [address] 03/23/2023 13:50:24 03/27/2023 09:10:53 [id number] [facility] [address] [place] [address] 09/22/2021 15:31:57 09/23/2021 15:52:47 Gynecologic examination [id number] Z01.419 Take Calcium with Vitamin D 1200mg [...] Screen naRoutine Labs na Pain in pelvis [id number] R10.2 Today we agreed to update vaginal [...] All questions answered to patient satisfacti on. [id number] Cristian Ruelas MD [facility] [address],[place] [address] 09/27/2021 16:41:33 09/27/2021 17:24:05 Pain in pelvis [id number] R10.2 [id number] [facility] [address],[place] [address] 10/06/2021 15:30:10 10/06/2021 16:12:13 Pain in pelvis 20895640 R10.2 Reviewed US which was wnl.Her pelvic pain sx's have resolvedPo ssible cyst had ruptured prior to USMonitor for now Malaise and fatigue 6444 78227 R23.2 Voices that she is generally not [...] taken today.Offe red to drive her to [facility].S he declined.V oices that she [...] counseling and review of plan of care. [id number] Magali Gleason [facility] [address],[place] [address] 11/23/2021 16:35:11 11/23/2021 17:11:18 Vaginitis 21316540 N76.0 Suspect BV & yeastWill treat for BV & yeastCall if sx's worsenIf swab was sent will be notified via portal unless otherwise indicated. Time spent in visit is a total of 15 mins with at least 50% of visit consisting of counseling and review of plan of care. [id number] [facility] [address],[place] [address] 03/14/2022 17:01:44 03/15/2022 15:51:39 Urinary symptoms [id number] R39.9 Vaginitis 28587941 N76.0 Suspect yeastWill treat yeastCall if sx's worsenIf swab was sent will be notified via portal unless otherwise indicated. Counseling /Therapist resources given including psychology today.[employer] Time spent in visit is a total of 15 mins with at least 50% of visit consisting of counseling and review of plan of care. [id number] Magali Gleason [facility] [address],[place] [address] 10/11/2022 11:18:54 10/11/2022 11:49:53 Dysuria 05791288 R30.0 Suspect UTISent cultureTre atedCounse led on medication R/B's, Most common side effects, & use. All questions were answered to patient satisfacti on. Gynecologi c examination [id number] Z01.419 Take Calcium with Vitamin D 1200mg [...] c Screen discussedC olon Screen naDexa Screen [facility] [place] [id number] Cristian Ruelas MD [place] [address],[place] [address] 02/14/2024 16:57:53 02/14/2024 17:33:10 Pain in pelvis 79000281 R10.2 [id number] Cristian Ruelas MD [facility] [address],[place] [address] 03/12/2024 15:30:34 03/13/2024 09:49:23 Pain in pelvis 55670737 R10.2 23-year-ol d female with multiple concerns. [...] hemorrhage and infection. Abnormal u terine bleeding [id number] 9100 N93.9 Sexually t ransmitted infectious disease [id number] A64 [id number] Cristian Ruelas MD [facility] [address],[place] [address] 04/09/2024 16:07:43 04/11/2024 14:25:38 Pain in pelvis 98470837 R10.2 this patient is a 23-year-ol d [...] Kelsey Member ID Guarantor Name 04/14/2024 [place] Mervat E Werner [id number] Mervat E Werner 04/14/2024 1 *SELF PAY* [place] viv[place] Werner 05/28/2024 1 [place] [facility] PUBLIC AID Mervat E Werner [id number] Mervat E Werner 04/03/2024 1 [facility] - DOS ON OR AFTER 20 (MEDICAID REPLACEMENT - HMO) Mervat Werner [id number] Mervat E Werner Notes Date Note Type [...] smears. Magali Gleason, BRENDAN-BC [address], [place], [address], [facility] 10/11/2022 11:48:59 [...] infection. Cristian Ruelas MD [address], [place], [address], [facility] 03/12/2024 19:07:15 [...] infection. Cristian Ruelas MD [address], [place], [address], [facility] 04/10/2024 22:44:59 OBGyn Episode No OBEpisode recorded.
--- OUTSIDE RECORDS SUMMARY | 2025-03-24 09:05 | XMS_ITS | Patient Health Record ---
Author Organization [facility] As [facility] Address [address] [place] [address] Care Team Providers Care Clinician Oncology Name Role Phone Olga CALIX, Rich Primary Care Provider UnavailLes Jones Unavailable [phone] Kerrie Coreas APRN Unavailable Unavailable Allergies Allergen (clinical drug ingredient) Drug/Non Drug Allergy documented on EMR Reaction Allergy Type Onset Date Status Adhesive tape (uncoded) Unknown Allergy Active amoxicillin Amoxicillin Unknown Drug Allergy Act donnie lactose Lactose Unknown Drug Allergy Active Reason For Referral No Information Social History Sex Assigned At : Social History Observation Description Sex Assigned At Female Plan Of Treatment Next Appt Details Provider Name:Les Jane, 03/30/2025 02:15:00 PM, [address], [address], [place], [address], Insurance Providers Payer Name Payer Address Payer Phone Subscriber Number Group Number Insured Name Patient Relationship to Insured Coverage Start Date Coverage End Date r [address] [address] [place] [address] [id number] Mervat Caldera Self - patient is the insured Medical (General) History Medical History History ICD Code Binge eating disorder OCD Hx of thyroid cancer Suicidal ideation Arthritis Seizures Tachycardia HTN Hypothryroidism Depression Anxiety
--- OUTSIDE RECORDS SUMMARY | 2025-03-24 09:05 | XMS_ITS | Encounter Summary ---
Author Organization [facility] Healthcare Address [address] [place] [address] Care Team Providers Care Multi Craft Maintenance Technician Name Role Phone Garrett Sanders MD Primary Care Provider [phone] Reason for Visit * Reason Onset Date Comments missed appointment 03/17/2025 Encounter Details Date Type Department Care Team (Late st Contact Info) Description 03/17/2025 Telephone [facility] Medical Group Family Medicine at [address] [place] [address] [place] [address] Garrett Sanders MD [address] [place] [address] missed appointment Social History Tobacco Use [...] on file 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 She missed her appointment today. My chart message sent. ASSEMBLER documented in this encounter Plan of Treatment Not on file documented as of this encounter Visit Diagnoses Not on filedocumented in this encounter Care Teams Multi Craft Maintenance Technician Relationship Specialty Start Date End Date Garrett Sanders MD [address] [facility] [address] [place] [address] PCP - General Family Medicine 04/09/23 documented as of this encounter
--- OUTSIDE RECORDS SUMMARY | 2025-03-24 09:05 | XMS_ITS | Clinical Summary ---
Author Organization [facility] [employer] Address [address] [place] [address] Care Team Providers Care Supervisor Telephone Information Name Role Phone Berkley De La Paz MD Primary Care Provider [phone] Berkley De La Paz MD Unavailable [phone] Source Comments [facility],non-owned Affiliates and Associated Physician Practices is amultiple site organization consisting of ambulatory clinics and hospital sitesin [place], [place], [place] and [place]. This disclosure is being madepursuant to the Care Everywhere program and may not contain all information available regarding this patient. 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
--- OUTSIDE RECORDS SUMMARY | 2025-03-24 09:05 | XMS_ITS | Encounter Summary ---
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 Gender Identity Not on file Sexual Orientation Not on file documented as of this encounter Plan of Treatment Not on file documented as of this encounter Visit Diagnoses Not on filedocumented in this encounter Additional Health Concerns Infection Onset Date Last Indicated Resolved Time COVID: Suspected 02/14/2023 02/14/2023 02/14/2023 2:34 PM PRESS HAND SUPERVISOR COVID: Suspected 04/09/2023 04/09/2023 04/09/2023 11:05 PM PRESS HAND SUPERVISOR documented as of this encounter Care Teams Trouble Shooting Mechanic Relationship Specialty Start Date End Date Samantha Olsen PA PCP - General Family Medicine 12/13/21 01/28/23 Fatuma Theodore NP [address] [facility] [address] [place] [address] PCP - General Family Medicine 01/29/23 04/08/23 Garrett Sanders MD [address] [facility] [address] [place] [address] PCP - General Family Medicine 04/09/23 documented as of this encounter
--- OUTSIDE RECORDS SUMMARY | 2025-03-24 09:05 | XMS_ITS | Encounter Summary ---
Author Organization [facility] Healthcare Address [address] [place] [address] Care Team Providers Care Cardiology Consultants Name Role Phone Samantha Olsen Primary Care Provider Fatuma Theodore NP Primary Care Provider [phone] Garrett Sanders MD Primary Care Provider Encounter Details Date Type Department Care Team (Late st Contact Info) Description 01/10/[address] 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 REGULATOR Gender Identity Not on file Sexual Orientation Not on file documented as of this encounter Plan of Treatment Not on file documented as of this encounter Visit Diagnoses Not on filedocumented in this encounter Additional Health Concerns Infection Onset Date Last Indicated Resolved Time COVID: Suspected 02/14/2023 02/14/2023 02/14/2023 2:34 PM TONAL REGULATOR COVID: Suspected 04/09/2023 04/09/2023 04/09/2023 11:05 PM TONAL REGULATOR documented as of this encounter Care Teams Cardiology Consultants Relationship Specialty Start Date End Date Samantha Olsen PA PCP - General Family Medicine 12/13/21 01/28/23 Fatuma Theodore NP [address] [facility] [address] [place] [address] PCP - General Family Medicine 01/29/23 04/08/23 Garrett Sanders MD [address] [facility] [address] [place] [address] PCP - General Family Medicine 04/09/23 documented as of this encounter
--- OUTSIDE RECORDS SUMMARY | 2025-03-24 09:05 | XMS_ITS | Clinical Summary ---
Author Organization [facility] Address [address] [place] [address] Care Team Providers Care Furnace Process Supervisor Name Role Phone Garrett Sanders MD Primary Care Provider [phone] Allergies Active Allergy Reactions Criticality Noted Date [...] 1 tablet (100 mg total) by mouth superintendent sales before breakfast 90 tablet 3 07/16/19 25 [...] 1 capsule (290 mcg total) by mouth superintendent sales before breakfast 90 capsule 3 08/06/19 25 [...] 02/14/2023 Assessment & Plan (02/14/2023 2:58 PM MOP WORKER): Warm compresses every 4-6 hours for 5-10 minutes Frequent handwashing, lid massage Doxycycline po 100 mg BID x 7 days. Sunscreen use advised. Topical erythromycin ER for worsening, pain, streaking redness, worsening swelling, vision impairment Upper respiratory tract infection 02/14/2023 Assessment & Plan (02/14/2023 2:59 PM MOP WORKER): Rapid strep negative Rapid covid, flu [...] 5pm. Assessment & Plan (04/19/2023 12:26 PM MOP WORKER): Recommended aggressive Lifestyle modification and weight [...] 08/30/2021 Assessment & Plan (03/12/2023 3:27 PM MOP WORKER): Continue current levothyroxine dose. Will check thyroid function test and adjust levothyroxine dose accordingly. TSH goal lower normal Assessment & Plan (02/13/2022 2:37 PM MOP WORKER): Continue current levothyroxine dose. Will check thyroid function test and adjust levothyroxine dose accordingly. 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 Syphilis contact 02/04/2019 Overview (04/19/2023): Encounter for STD screening;Recorded Elsewhere: No Location: [facility] Source: EHR Chronic: N Practice ID: [id number] Billable Time: 01:15:00 PM Contraceptive management 04/23/2018 Overview (04/19/2023): Encounter for routine checking of intrauterine contraceptive device;Recorded Elsewhere: No Location: [facility] Source: EHR Chronic: N Practice ID: [id number] Billable Time: 09:45:00 AM Pelvic and perineal pain 02/27/2018 Overview (04/19/2023): Pelvic and perineal pain;Recorded Elsewhere: No Location: [facility] Source: EHR Chronic: N Practice ID: [id number] Billable Time: 11:00:00 AM Menstrual cycle disorder 05/19/2015 Overview (04/19/2023): Menometrorrhagia;Recorded Elsewhere: No Location: [facility] Source: EHR Chronic: N Practice ID: [id number] Billable Time: 10:30:00 AM Irregular menses 01/09/2015 Resolved Problems Problem Noted Date Diagnosed Date Resolved Date Abscess of left thigh 06/14/20222022 Hypoglycemia 02/13/2022 01/29/2023 Assessment & Plan (02/13/2022 2:39 PM MOP WORKER): No documented low blood sugar Advised BG monitoring with symptoms to establish correlation & inform further work up Positive FLORENCIO (antinuclear antibody) 10/14/2021 01/29/2023 Rash 09/20/2021 01/29/2023 Sore throat 09/20/2021 01/29/2023 Infectious mononucleosis without complication 09/05/19 22 01/29/2023 Papillary thyroid carcinoma 03/09/2021 12/16/2024 Assessment & Plan (03/12/2023 3:28 PM MOP WORKER): No evidence of tumor recurrence on biochemical and radiological data so far Will plan follow-up with thyroid function test with a TSH goal lower normal. Biochemical evaluation with thyroid tumor markers. We will also obtain neck ultrasound for evaluation of the neck. If above are in acceptable range, will plan follow-up on yearly basis Assessment & Plan (02/13/2022 2:38 PM MOP WORKER): No evidence of tumor recurrence on [...] Type Department Care Team Description 03/17/2025 Telephone [facility] Medical Group Family Medicine at [address] [place] [address] Garrett Sanders MD missed appointment [...] Rheum arthritis Mother Mercedes Diabetes Paternal Grandfather Orhit Heart attack Paternal Grandfather Rohit Heart disease [...] on file Legal Sex Female 5:33 AM MOP WORKER Gender Identity Not on file Sexual [...] CORDERO Comment:Testing performed by : [facility], [address] [place] [address], [place]., [address] N. gonorrhoeae Not Detected Not Detected AYSE CORDERO Comment: Interpretive Data Testing performed by the [facility]. This assay detects Chlamydia trachomatis [...] on 2019. Testing performed by: [facility], [address] [place] [address]., [address] Urine (None) 06/13/2022 3:09 PM CDT 06/13/2022 4:09 PM CDT Maria Teresa OLIVA LAB MICROBIOLOGY - GENERAL ORDER SADIA Final Result Performing Organization Address City/[facility]/ZIP Co de Phone Number [facility] [address] [facility] Department [place] [address] * Hepatitis panel, acute (02/01/2022 7:53 PM CDT) Hep A IgM Nonreactive Nonreactive [facility] Comment: Interpretive Data: If Hep A IgM Ab is reported as Equivocal, a new sample should be drawn in two weeks for testing. Current interpretive data was last revised on 19. Hep B core IgM Nonreactive Nonreactive [facility] Comment: Interpretive Data If HepB Core IgM Ab is reported as Equivocal, a new sample should be drawn in two weeks for testing. Current interpretive data was last revised on 19. Hep C Ab Nonreactive Nonreactive [facility] Comment: Interpretive Data Nonreactive: Antibodies to [...] last revised on 2019. HepBsAg Nonreactive Nonreactive [facility] Blood 02/01/2022 7:53 PM CDT 02/01/2022 11:28 PM CDT Liz Tucker DO LAB MICROBIOLOGY - GENERAL ORDE RUTH Final Result AYSE [address] [facility] [place] [address] from Last 3 Months or Most Recently Relevant to Health Maintenance Insurance [facility] Care Teams Furnace Process Supervisor Relationship Specialty Start Date End Date Garrett Sanders MD [address] [facility] [place] [address] PCP - General Family Medicine 04/09/23
--- NOTE | 2025-03-26 17:13 | WPDNEUROLOGY ---
Neurology EEG Report General Information Date of Study: 03/23/25 TEST Electroencephalogram DIAGNOSIS possible seizure disorder CONDITION OF RECORDING bedside recording EEG NUMBER [id number] CLINICAL HISTORY The patient's 24-year-old with history of seizure-like spells. She describes that she has a visual aura when she sees things getting bright and it is hard for her to see what she is looking at. Has noticed that the stressful situation triggers it. She has had fall down the stairs twice due to these spells. EEG DESCRIPTION During wakefulness the background activity consists of posterior dominant alpha rhythm at 9 hertz with an amplitude of 20- 40 microvolts. There is mild anteroposterior gradient. Anteriorly low amplitude mixed frequency activity was seen. Hyperventilation not performed. Photic stimulation was performed during which no significant abnormal background changes were seen. During drowsiness attenuation of background activity was seen. Diffuse theta activity was noted. Patient did not progress to stage 2 sleep. IMPRESSION This is a normal EEG obtained during awake and drowsy states.
== END 2025-03-23 15:23 | disposition home or self-care (01) ==
LOC: ANHED 22:12 → ANH3MEDSUR 03-21 07:41 → ANH2MED 03-23 10:08
PROVIDERS: Physician Assistant; Admitting Provider Internal Medicine; Emergency Provider Emergency Medicine; PCP Nurse Practitioner Adult Health; Visit Provider Internal Medicine
DX: R56.9 Unspecified convulsions (principal); F41.1 Generalized anxiety disorder; F39 Unspecified mood [affective] disorder; E89.0 Postprocedural hypothyroidism; I10 Essential (primary) hypertension; R00.0 Tachycardia, unspecified; F42.9 Obsessive-compulsive disorder, unspecified; M19.90 Unspecified osteoarthritis, unspecified site; N80.9 Endometriosis, unspecified; F17.290 Nicotine dependence, other tobacco product, uncomplicated; F12.90 Cannabis use, unspecified, uncomplicated; Z79.891 Long term (current) use of opiate analgesic; Z85.850 Personal history of malignant neoplasm of thyroid; Z91.51 Personal history of suicidal behavior; Z81.8 Family history of other mental and behavioral disorders
CPT/HCPCS: 36415; 70450; 70551; 72125; 80053; 80307; 81001; 81025; 82077; 82550; 82948; 84439; 84443; 84481; 85025; 85055; 86376; 93005; 95816; 96360; 96361; 96374; 96375; 99285; A9270; G0378; J2405; J7030; J7120

== ENCOUNTER 2025-03-26 22:22 | Emergency (ER) | payer OTHER, BC, SELFPAY ==
[2025-03-26 22:24] VITALS: BP 134/87; RESP 16; TEMP 37; O2SAT 99
--- OUTSIDE RECORDS SUMMARY | 2025-03-26 22:25 | XMS_ITS | Clinical Summary ---
Author Organization [facility] [employer] Address [address] [place] [address] Care Team Providers Care Deck Engineer Name Role Phone Berkley De La Paz MD Primary Care Provider [phone] Berkley De La Paz MD Unavailable [phone] Source Comments [facility],non-owned Affiliates and Associated Physician Practices is amultiple site organization consisting of ambulatory clinics and hospital sitesin [place], [place], [place] and [place]. This disclosure is being madepursuant to the Care Everywhere program and may not contain all information available regarding this patient. 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 Gender Identity Not on file Sexual Orientation [...] patient's age to complete this topic Insurance [facility] [place] [place] [facility] MEDICAID - OUT OF STATE AET [facility] Address: [address] [address] [place] [address] MEDICAID - [place] [facility] Care Teams Deck Engineer Relationship Specialty Start Date End Date Berkley De La Pza MD [address] [place] [address] [facility] - General 04/11/18 Berkley De La Paz MD [address] [facility] [address] [place] [address] [facility] 04/11/18
--- OUTSIDE RECORDS SUMMARY | 2025-03-26 22:25 | XMS_ITS | Encounter Summary ---
Author Organization [facility] Healthcare Address [address] [place] [address] Care Team Providers Care Credit And Collections Representative Name Role Phone Samantha Olsen Primary Care Provider Fatuma Theodore NP Primary Care Provider [phone] Garrett Sanders MD Primary Care Provider [phone] Encounter Details Date Type Department Care Team (Late st Contact Info) Description 01/10/2022 Telephone [facility] OP Physical Therapy [facility] [address] [address] Rosalva Hurley, PT Social History [...] on file Legal Sex Female 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 Gender Identity Not on file Sexual Orientation Not on file documented as of this encounter Plan of Treatment Not on file documented as of this encounter Visit Diagnoses Not on filedocumented in this encounter Additional Health Concerns Infection Onset Date Last Indicated Resolved Time COVID: Suspected 02/14/2023 02/14/2023 02/14/2023 2:34 PM PM HEAD COOK COVID: Suspected 04/09/2023 04/09/2023 04/09/2023 11:05 PM PM HEAD COOK documented as of this encounter Care Teams Credit And Collections Representative Relationship Specialty Start Date End Date Samantha Olsen PA PCP - General Family Medicine 12/13/21 01/28/23 Fatuma Theodore NP [address] [facility] [address] [place] [address] PCP - General Family Medicine 01/29/23 04/08/23 Garrett Sanders MD [address] [facility] [address] [place] [address] PCP - General Family Medicine 04/09/23 documented as of this encounter
--- OUTSIDE RECORDS SUMMARY | 2025-03-26 22:25 | XMS_ITS | Clinical Summary ---
Author Organization [facility] Address [address] [place] [address] Care Team Providers Care Retail Leader Name Role Phone Garrett Sanders MD Primary Care Provider [phone] Allergies Active Allergy Reactions Criticality Noted Date [...] 1 tablet (100 mg total) by mouth diagnostic radiologist before breakfast 90 tablet 3 07/16/19 25 [...] 1 capsule (290 mcg total) by mouth diagnostic radiologist before breakfast 90 capsule 3 08/06/19 25 [...] 02/14/2023 Assessment & Plan (02/14/2023 2:58 PM PEOPLESOFT HCM DEVELOPER): Warm compresses every 4-6 hours for 5-10 minutes Frequent handwashing, lid massage Doxycycline po 100 mg BID x 7 days. Sunscreen use advised. Topical erythromycin ER for worsening, pain, streaking redness, worsening swelling, vision impairment Upper respiratory tract infection 02/14/2023 Assessment & Plan (02/14/2023 2:59 PM PEOPLESOFT HCM DEVELOPER): Rapid strep negative Rapid covid, flu negative [...] 5pm. Assessment & Plan (04/19/2023 12:26 PM PEOPLESOFT HCM DEVELOPER): Recommended aggressive Lifestyle modification and weight loss [...] 08/30/2021 Assessment & Plan (03/12/2023 3:27 PM PEOPLESOFT HCM DEVELOPER): Continue current levothyroxine dose. Will check thyroid function test and adjust levothyroxine dose accordingly. TSH goal lower normal Assessment & Plan (02/13/2022 2:37 PM PEOPLESOFT HCM DEVELOPER): Continue current levothyroxine dose. Will check thyroid function test and adjust levothyroxine dose accordingly. 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 Syphilis contact 02/04/2019 Overview (04/19/2023): Encounter for STD screening;Recorded Elsewhere: No Location: [facility] Source: EHR Chronic: N Practice ID: [id number] Billable Time: 01:15:00 PM Contraceptive management 04/23/2018 Overview (04/19/2023): Encounter for routine checking of intrauterine contraceptive device;Recorded Elsewhere: No Location: [facility] Source: EHR Chronic: N Practice ID: [id number] Billable Time: 09:45:00 AM Pelvic and perineal pain 02/27/2018 Overview (04/19/2023): Pelvic and perineal pain;Recorded Elsewhere: No Location: [facility] Source: EHR Chronic: N Practice ID: [id number] Billable Time: 11:00:00 AM Menstrual cycle disorder 05/19/2015 Overview (04/19/2023): Menometrorrhagia;Recorded Elsewhere: No Location: [facility] Source: EHR Chronic: N Practice ID: [id number] Billable Time: 10:30:00 AM Irregular menses 01/09/2015 Resolved Problems Problem Noted Date Diagnosed Date Resolved Date Abscess of left thigh 06/14/20222022 Hypoglycemia 02/13/2022 01/29/2023 Assessment & Plan (02/13/2022 2:39 PM PEOPLESOFT HCM DEVELOPER): No documented low blood sugar Advised BG monitoring with symptoms to establish correlation & inform further work up Positive FLORENCIO (antinuclear antibody) 10/14/2021 01/29/2023 Rash 09/20/2021 01/29/2023 Sore throat 09/20/2021 01/29/2023 Infectious mononucleosis without complication 09/05/19 22 01/29/2023 Papillary thyroid carcinoma 03/09/2021 12/16/2024 Assessment & Plan (03/12/2023 3:28 PM PEOPLESOFT HCM DEVELOPER): No evidence of tumor recurrence on biochemical and radiological data so far Will plan follow-up with thyroid function test with a TSH goal lower normal. Biochemical evaluation with thyroid tumor markers. We will also obtain neck ultrasound for evaluation of the neck. If above are in acceptable range, will plan follow-up on yearly basis Assessment & Plan (02/13/2022 2:38 PM PEOPLESOFT HCM DEVELOPER): No evidence of tumor recurrence on biochemical [...] Type Department Care Team Description 03/17/2025 Telephone [facility] Family Medicine at [address] [place] [address] Garrett Sanders MD missed appointment [...] on file Legal Sex Female 5:33 AM PEOPLESOFT HCM DEVELOPER Gender Identity Not on file Sexual Orientation [...] AYSE CORDERO Comment:Testing performed by : [facility], [address] [place] [address], [place]., [address] N. gonorrhoeae Not Detected Not Detected AYSE CORDERO Comment: Interpretive Data Testing performed by the [facility]. This assay detects Chlamydia trachomatis [...] revised on 2019. Testing performed by: [facility], [address] [place] [address]., [id number] Urine (None) 06/13/2022 3:09 PM CDT 06/13/2022 4:09 PM CDT Maria Teresa OLIVA LAB MICROBIOLOGY - GENERAL ORDER SADIA Final Result Performing Organization Address City/[facility]/ZIP Co de Phone Number [facility] [address] [facility] Department [place] [address] * Hepatitis panel, acute (02/01/2022 7:53 PM CDT) Hep A IgM Nonreactive Nonreactive [facility] Comment: Interpretive Data: If Hep A IgM Ab is reported as Equivocal, a new sample should be drawn in two weeks for testing. Current interpretive data was last revised on 19. Hep B core IgM Nonreactive Nonreactive [facility] Comment: Interpretive Data If HepB Core IgM Ab is reported as Equivocal, a new sample should be drawn in two weeks for testing. Current interpretive data was last revised on 19. Hep C Ab Nonreactive Nonreactive [facility] Comment: Interpretive Data Nonreactive: Antibodies to [...] revised on 2019. HepBsAg Nonreactive Nonreactive [facility] Blood 02/01/2022 7:53 PM CDT 02/01/2022 11:28 PM CDT Liz Tucker DO LAB MICROBIOLOGY - GENERAL ORDE RUTH Final Result AYSE [address] [facility] Department [place] [address] from Last 3 Months or Most Recently Relevant to Health Maintenance Insurance [facility] Care Teams Retail Leader Relationship Specialty Start Date End Date Garrett Sanders MD [address] [place] [address] PCP - General Family Medicine 04/09/23
--- OUTSIDE RECORDS SUMMARY | 2025-03-26 22:25 | XMS_ITS | Patient Health Record ---
Author Organization [facility] As [employer] [facility] Address [address] [place] [address] Care Team Providers Care Contact Center Assistant Name Role Phone Olga CALIX, Rich Primary Care Provider UnavailLes Jones Unavailable [phone] Kerrie Coreas APRN Unavailable Unavailable Allergies Allergen [...] PM, [address], [address], [place], [address], Insurance Providers Payer Name Payer Address Payer Phone Subscriber Number Group Number Insured Name Patient Relationship to Insured Coverage Start Date Coverage End Date r [address] [address] [place] [address] [id number] Mervat Caldera Self - patient is the insured Medical (General) History Medical History History ICD Code Binge eating disorder OCD Hx of thyroid cancer Suicidal ideation Arthritis Seizures Tachycardia HTN Hypothryroidism Depression Anxiety
--- OUTSIDE RECORDS SUMMARY | 2025-03-26 22:25 | XMS_ITS | Clinical Summary ---
Author Organization [facility] Address Formerly [facility], [facility] [place] [address] Care Team Providers Care Motor Vehicle Technician Name Role Phone Unavailable Primary Care Provider [...] Sex Assigned at Female 02/16/2021 2:40 PM MUSIC AGENT Legal Sex Female 6:24 PM CDT Gender Identity Female 02/16/2021 2:40 PM MUSIC AGENT Sexual Orientation Straight 02/16/2021 2: 40 PM MUSIC AGENT Last Filed Vital Signs Vital Sign Reading Time Taken Comments Blood Pressure 146/83 04/11/2021 1:09 PM MUSIC AGENT Pulse 87 04/11/2021 1:09 PM MUSIC AGENT Temperature 36.2 C (97.1 F) 04/11/2021 1:09 PM MUSIC AGENT Respiratory Rate 18 04/11/2021 1:09 PM MUSIC AGENT Oxygen Saturation 98% 04/11/2021 1:09 PM MUSIC AGENT Inhaled Oxygen Concentration - - Weight 108.9 kg (240 lb) 04/11/2021 1:09 PM MUSIC AGENT Height 175.3 cm (5' 9) 04/11/2021 1:09 PM MUSIC AGENT Body Mass Index 35.44 04/11/2021 1:09 PM MUSIC AGENT Plan of Treatment Health Maintenance Due Date [...] VE NON-REACTI VE 01/21/2021 5:16 PM CDT [facility] 01/21/2021 3:03 PM CDT us Tamra Moran NP LABORATORY Final Result [facility] [address] [place] [address], [place] [phone] from Last 3 Months or Most Recently Relevant to Health Maintenance Insurance [place]
--- OUTSIDE RECORDS SUMMARY | 2025-03-26 22:25 | XMS_ITS | Encounter Summary ---
Author Organization 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 Gender Identity Not on file Sexual Orientation Not on file documented as of this encounter Plan of Treatment Not on file documented as of this encounter Visit Diagnoses Not on filedocumented in this encounter Additional Health Concerns Infection Onset Date Last Indicated Resolved Time COVID: Suspected 02/14/2023 02/14/2023 02/14/2023 2:34 PM LOWERATOR OPERATOR COVID: Suspected 04/09/2023 04/09/2023 04/09/2023 11:05 PM LOWERATOR OPERATOR documented as of this encounter Care Teams Inspector Brake Lining Relationship Specialty Start Date End Date Samantha Olsen PA PCP - General Family Medicine 12/13/21 01/28/23 Fatuma Theodore NP [address] [place] [address] [place] [id number] PCP - General Family Medicine 01/29/23 04/08/23 Garrett Sanders MD [address] [place] [address] [place] [id number] PCP - General Family Medicine 04/09/23 documented as of this encounter
--- OUTSIDE RECORDS SUMMARY | 2025-03-26 22:25 | XMS_ITS | Data Portability ---
Author Organization [facility] Address [address] [place] [address] Assessment Encounter Date Assessment Date Assessment LastModified [...] 2023 [facility] (Lab), [address] [place], [address], 4 02:06:20 hbcab (hepatitis B core Ab) igm, serum 2023 024 [facility] (Lab), [address] [place], [address], 4 02:06:20 HBsAg (hepatitis B surface Ag), serum 2023 024 [facility] (Lab), [address] [place], [address], 4 02:06:17 hepatitis C virus Ab, serum 2023 024 [facility] (Lab), [address], [place], [address], 4 02:06:18 HIV 1+2 AB + HIV 1 p24 Ag, qualitative immunoassay , serum 2023 024 [facility] (Lab), [address], [place], [address], 4 02:06:17 RPR (rapid plasma reagin), serum 2023 024 [facility] (Lab), [address], [place], [address], 4 02:06:20 CBC w/ auto diff 2023 024 [facility] (Lab), [address], [place], [address], 4 02:06:16 dhea-sulfat e, serum 2023 024 [facility] (Lab), [address], [place], [address], 4 02:06:17 hormone panel, serum or plasma 2023 024 [facility] (Lab), [address], [place], [address], 4 02:06:19 progesteron e, serum 2023 024 [facility] (Lab), [address], [place], [address], 4 02:06:18 prolactin, serum 2023 024 [facility] (Lab), [address], [place], [address], 4 02:06:18 shbg (sex hormone-bin ding globulin), serum 2023 024 [facility] (Lab), [address] [facility], [place], [address], 4 02:06:18 TSH, serum or plasma 2023 024 [facility] (Lab), [address], [place], [address], 4 02:06:19 testosteron e free/testos terone total, ratio, serum 2023 024 [facility] (Lab), [address], [place], [address], 4 02:06:20 urinalysis, dipstick 2022 023 [email or web address], [address], [place], [address], 3 11:45:12 Referral None recorded. Procedures None recorded. Surgeries laparoscopy , diagnostic (SURG) 2024 025 [id number], [facility] [address], [place], [address], 5 14:34:35 Imaging US, pelvis 2023 024 [email or web address] [place], [address], [address], [place], [address], 4 20:23:49 US, transvagina l 2023 024 [email or web address] [place], [address], [address], [place], [address], 4 20:23:49 Medication Orders Macrobid 100 mg capsule 2022 [id number], [address], [place], [id number], 4 16:18:20 Patient TargetsNo targets recorded. 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 Not Available [facility] (Lab) [address] [facility], [place], [address], 10/13/2022 19:56:22 10/12/19 23 10/11/2022 TRICH OMONA S VAGIN CUCA (RRNA ) trichomonas vaginalis ribosomal RNA (rrna) Negati ve negati ve Not Available [facility] (Lab) [address] [place], [address], 10/13/2022 19:56:23 10/12/19 23 10/11/2022 CT/GC (STEFANY) , THINP REP VIAL chlamydia trachomatis, PCR Negati ve negati ve Not Available [facility] (Lab) [address] [place], [address], 10/13/2022 19:56:24 10/12/19 23 10/11/2022 CT/GC (STEFANY) , THINP REP VIAL neisseria gonorrhoeae, PCR Negati ve negati ve Not Available [facility] (Lab) [address], [place], [address], 10/13/2022 19:56:24 10/12/19 23 10/11/2022 urina lysis , dipst ick Protein trace Not Available [facility] [address], [place], [address], 10/11/2022 11:34:25 10/12/19 23 10/11/2022 urina lysis , dipst ick pH 5 Not Available [facility] [address], [place], [address], 10/11/2022 11:34:25 10/12/19 23 10/11/2022 urina lysis , dipst ick Specific [place] 1.015 Not Available [facility] [address], [place], [address], 10/11/2022 11:34:25 03/12/20 24 03/12/2024 CT/GC AND TRICH OMONA S VAGIN CUCA (RRNA ), URINE chlamydia trachomatis, PCR Negati ve negati ve Not Available [facility] (Lab) [address], [place], [address], 03/13/2024 13:33:23 03/12/20 24 03/12/2024 CT/GC AND TRICH OMONA S VAGIN CUCA (RRNA ), URINE neisseria gonorrhoeae, PCR Negati ve negati ve Not Available [facility] (Lab) [address], [place], [address], 03/13/2024 13:33:23 03/12/20 24 03/12/2024 CT/GC AND TRICH OMONA S VAGIN CUCA (RRNA ), URINE trichomonas vaginalis ribosomal RNA (rrna) Negati ve negati ve Not Available [facility] (Lab) [address], [place], [address], 03/13/2024 13:33:23 03/12/20 24 03/12/2024 CBC W/DIF F WBC 10.2 10'3/ uL 3.5-10 .5 Not Available [facility] (Lab) [address], [place], [address], 03/18/2024 02:06:16 03/12/20 24 03/12/2024 CBC W/DIF F RBC 4.76 10'6/ uL (based on docume nted legal sex) 3.80-5 .20 Not Available [facility] (Lab) [address], [place], [address], 03/18/2024 02:06:16 03/12/20 24 03/12/2024 CBC W/DIF F HGB 15.1 g/dL (based on docume nted legal sex) 11.6-1 5.4 Not Available [facility] (Lab) [address], [place], [address], 03/18/2024 02:06:16 03/12/20 24 03/12/2024 CBC W/DIF F HCT 46.6 % (based on docume nted legal sex) 34.0-4 5.0 high Not Available [facility] (Lab) [address], [place], [address], 03/18/2024 02:06:16 03/12/20 24 03/12/2024 CBC W/DIF F MCV 97.9 fL 80.0-9 9.0 Not Available [facility] (Lab) [address], [place], [address], 03/18/2024 02:06:16 03/12/20 24 03/12/2024 CBC W/DIF F MCH 31.7 pg 27.0-3 4.0 Not Available [facility] (Lab) [address], [place], [address], 03/18/2024 02:06:16 03/12/20 24 03/12/2024 CBC W/DIF F MCHC 32.4 g/dL 32.0-3 5.5 Not Available [facility] (Lab) [address], [place], [address], 03/18/2024 02:06:16 03/12/20 24 03/12/2024 CBC W/DIF F RDW 12.9 % 11.0-1 5.0 Not Available [facility] (Lab) [address], [place], [address], 03/18/2024 02:06:16 03/12/20 24 03/12/2024 CBC W/DIF F plt 419 10'3/ uL 150-40 0 high Not Available [facility] (Lab) [address], [place], [address], 03/18/2024 02:06:16 03/12/20 24 03/12/2024 CBC W/DIF F MPV 10.5 fL 8.8-12 .1 Not Available [facility] (Lab) [address], [place], [address], 03/18/2024 02:06:16 03/12/20 24 03/12/2024 CBC W/DIF F NRBC's 0.0 % 0.0 Not Available [facility] (Lab) [address], [place], [address], 03/18/2024 02:06:16 03/12/20 24 03/12/2024 CBC W/DIF F absolute NRBCs 0.0 10'3/ uL no refere nce range establ ished Not Available [facility] (Lab) [address], [place], [address], 03/18/2024 02:06:16 03/12/20 24 03/12/2024 CBC W/DIF F neutrophils 62.8 % 34.0-7 3.0 Not Available [facility] (Lab) [address], [place], [address], 03/18/2024 02:06:16 03/12/20 24 03/12/2024 CBC W/DIF F lymphocytes 24.6 % 15.0-5 0.0 Not Available [facility] (Lab) [address], [place], [address], 03/18/2024 02:06:16 03/12/20 24 03/12/2024 CBC W/DIF F monocytes 9.7 % 1.0-15 .0 Not Available [facility] (Lab) [address], [place], [address], 03/18/2024 02:06:16 03/12/20 24 03/12/2024 CBC W/DIF F eosinophils 1.4 % 0.0-8. 0 Not Available [facility] (Lab) [address], [place], [address], 03/18/2024 02:06:16 03/12/20 24 03/12/2024 CBC W/DIF F basophils 1.0 % 0.0-2. 0 Not Available [facility] (Lab) [address] [facility], [place], [address], 03/18/2024 02:06:16 03/12/20 24 03/12/2024 CBC W/DIF F immature granulocytes 0.5 % no define d refere nce range Not Available [facility] (Lab) [address] [place], [address], 03/18/2024 02:06:16 03/12/20 24 03/12/2024 CBC W/DIF F absolute neutrophils 6.4 10'3/ uL 1.5-8. 0 Not Available [facility] (Lab) [address] [place], [address], 03/18/2024 02:06:16 03/12/20 24 03/12/2024 CBC W/DIF F absolute lymphocytes 2.5 10'3/ uL 1.0-4. 0 Not Available [facility] (Lab) [address] [facility], [place], [address], 03/18/2024 02:06:16 03/12/20 24 03/12/2024 CBC W/DIF F absolute monocytes 1.0 10'3/ uL 0.2-1. 0 Not Available [facility] (Lab) [address] [facility], [place], [address], 03/18/2024 02:06:16 03/12/20 24 03/12/2024 CBC W/DIF F absolute eosinophils 0.1 10'3/ uL 0.0-0. 6 Not Available [facility] (Lab) [address] [facility], [place], [address], 03/18/2024 02:06:16 03/12/20 24 03/12/2024 CBC W/DIF F absolute basophils 0.1 10'3/ uL 0.0-0. 3 Not Available [facility] (Lab) [address] [facility], [place], [address], 03/18/2024 02:06:16 03/12/20 24 03/12/2024 CBC W/DIF [...] resul ts are expec carol. Not Available [facility] (Lab) [address] [facility], [place], [address], 03/18/2024 02:06:16 03/12/20 24 03/12/2024 HEPAT ITIS B SURFA CE ANTIG EN hepatitis B surface antigen Non-re active non-re active This assay was perfo rmed using [employer] ratio n reage nts and test kits. Value s obtai cora with other assay metho ds or kits canno t be used inter daily eably . Not Available [facility] (Lab) [address], [place], [address], 03/18/2024 02:06:17 03/12/20 24 03/12/2024 HIV 1/2 ANTIG EN/AN TIBOD Y, REFLE X CONFI RMATI ON HIV antigen/anti body Nonrea ctive nonrea ctive HIV-1 antig en and HIV-1 /HIV- 2 antib odies were not detec carol. No labor atory evide nce of HIV infec tion. Not Available [facility] (Lab) [address], [place], [address], 03/18/2024 02:06:17 03/12/20 24 03/12/2024 DHEA SULFA TE DHEA-sulfate 144 ug/dL Femal e Range s Age(y ) Range (ug/d L) 10-15 34-28 0 15-20 65-36 8 20-25 148-4 07 25-35 99-34 0 35-45 61-33 7 45-55 35-25 6 55-65 19-20 5 65-75 9-246 > 75 12-15 4 Not Available [facility] (Lab) [address], [place], [address], 03/18/2024 02:06:17 03/12/20 24 03/12/2024 HEPAT ITIS C ANTIB ANIKET SCREE N, REFLE X TO CONFI RMATI ON hepatitis C antibody Non-re active non-re active Antib odies to HCV Not Detec carlo, does not exclu de the possi bilit y of expos ure to HCV. Not Available [facility] (Lab) [address], [place], [address], 03/18/2024 02:06:18 03/12/20 24 03/12/2024 HUMAN SEX HORMO NE HANNAH NG GLOBU [place] sex hormone binding globulin 16.8 nmole s/L 18.2-1 35.5 low Not Available [facility] (Lab) [address], [place], [address], 03/18/2024 02:06:18 03/12/20 24 03/12/2024 PROLA CTIN prolactin, total 25.70 NG/mL 4.79-2 3.30 high This assay was perfo rmed using [employer] ratio n reage nts and test kits. Value s obtai cora with other assay metho ds or kits canno t be used inter [facility] . Not Available [facility] (Lab) [address] [place], [address], 03/18/2024 02:06:18 03/12/20 24 03/12/2024 PROGE STERO NE progesterone 6.69 NG/mL This assay was perfo rmed using [employer] ratio n reage nts and test kits. Value s obtai cora with other assay metho ds or kits canno t be used inter [facility] . Femal e Proge stero ne Range s: Folli cular phase 0.06- 0.89 ng/mL Ovula tion phase 0.12- 12.00 ng/mL Lutea l phase 1.83- 23.90 ng/mL Postm enopa usal <0.05 -0.13 ng/mL Healt hy Pregn ant Women 1st Trime ster 11.0- 44.30 2nd Trime ster 25.40 -83.3 0 3rd Trime ster 58.70 -214. 00 Not Available [facility] (Lab) [address] [place], [address], 03/18/2024 02:06:18 03/12/20 24 03/12/2024 FSH, LH, ESTRA DIOL estradiol 95.5 pg/mL This assay was perfo rmed using [employer] ratio n reage nts and test kits. Value s obtai cora with other assay metho ds or kits canno t be used inter [facility] . Femal e Estra diol Range s: Folli cular phase 12.4- 233 pg/mL Ovula tion phase 41.0- 398 pg/mL Lutea l phase 22.3- 341 pg/mL Postm enopa usal <5-13 8 pg/mL Healt hy Pregn ant Women 1st Trime ster 154-3 243 pg/mL 2nd Trime ster 1561- 22526 pg/mL 3rd Trime ster 8525- >3000 0 pg/mL Not Available [facility] (Lab) [address] [facility], [place], [address], 03/18/2024 02:06:19 03/12/20 24 03/12/2024 FSH, LH, [...] use: 25.8- 134.8 mIU/m L Not Available [facility] (Lab) [address] [facility], [place], [address], 03/18/2024 02:06:19 03/12/20 24 03/12/2024 FSH, LH, [...] use: 7.7-5 8.5 mIU/m L Not Available [facility] (Lab) [address] [place], [address], 03/18/2024 02:06:19 03/12/20 24 03/12/2024 T4 FREE T4, free 0.77 NG/dL 0.60-1 .40 This assay is susce ptibl e to inter feren ce from high level s of bioti n which may false ly eleva te resul ts. Belinda e ev late with clini clifford findi ngs. Not Available [facility] (Lab) [address] [facility], [place], [address], 03/18/2024 02:06:19 03/12/20 24 03/12/2024 TSH, REFLE X FREE T4 TSH 101.21 uIU/m L 0.30-5 .33 high Not Available [facility] (Lab) [address] [place], [address], 03/18/2024 02:06:19 03/12/20 24 03/12/2024 HERPE S SIMPL EX VIRUS TYPE 2 SPECI FIC AB, IGG herpes simplex virus 2 IgG Negati ve negati ve Not Available [facility] (Lab) [address] [facility], [place], [address], 03/18/2024 02:06:20 03/12/20 24 03/12/2024 HERPE S SIMPL EX VIRUS TYPE 2 SPECI FIC AB, IGG herpes simples virus 2 IgG, quant <0.2 ai 0.0-0. 8 Not Available [facility] (Lab) [address] [place], [address], 03/18/2024 02:06:20 03/12/20 24 03/12/2024 HEPAT ITIS B CORE, IGM hepatitis B core IgM antibody Non-re active non-re active IgM anti- HBc not detec carol. Does not exclu de the possi bilit y of expos ure to or infec tion with HBV. Not Available [facility] (Lab) [address] [place], [address], 03/18/2024 02:06:20 03/12/20 24 03/12/2024 RPR SCREE N, REFLE X TITER /CONF IRMAT ION RPR screen Nonrea ctive nonrea ctive Not Available [facility] (Lab) [address] [place], [address], 03/18/2024 02:06:20 03/12/20 24 03/12/2024 TESTO STERO [...] cteri stics have been deter mined by [employer] [place], [place]. It has not been clear ed or appro thu by the U.S. Food and Drug Admin istra tion. This assay has been valid ated pursu ant to the CLIA regul ation s and is used for clini clifford purpo ses. Not Available [facility] (Lab) [address] [facility], [place], [address], 03/18/2024 02:06:20 03/12/20 24 03/12/2024 TESTO STERO NE, FREE( DIALY SIS) AND TOTAL (LC/M S/MS) testosterone , free 5.1 pg/mL 0.1-6. 4 This test was devel oped and its genia tical perfo rmanc e nasra cteri stics have been deter mined by [employer] [place], [place]. It has not been clear ed or appro thu by the U.S. Food and Drug Admin istra tion. This assay has been valid ated pursu ant to the CLIA regul ation s and is used for clini clifford purpo ses. Perfo rming Organ izati on [facility] dem[facility] n: Site ID: AMD Name: [employer] annika Addre ss: [id number] [facility] [employer] [place], [place] Direc tor: Allegra Archibald MD PhD Not Available [facility] (Lab) [address] [facility], [place], [address], 03/18/2024 02:06:20 03/27/20 24 03/27/2024 PLATE LET COUNT plt 416 10'3/ uL 150-40 0 high Not Available [facility] (Lab) [address] [facility], [place], [address], 03/28/2024 05:46:43 03/27/20 24 03/27/2024 TSH TSH 81.15 uIU/m L 0.30-5 .33 high Not Available [facility] (Lab) [address] [facility], [place], [address], 03/28/2024 05:46:44 02/14/20 24 02/14/2024 US, pelvi s No observ ation record ed. [email or web address], [place], [address], 02/14/2024 18:05:32 02/14/20 24 02/14/2024 US, victoria hart No observ ation record ed. [email or web address] [address] , [place], [address], 02/14/2024 18:05:41 02/14/20 24 02/14/2024 US, pelvi s No observ ation record ed. [email or web address] Nereida [address] [place] [address], [place], [address], 02/14/2024 20:20:04 Result Notes None recorded. Problems Name Problem SNOMED Code Status Onset Date Resolution Date Notes Provider Name and Address Organization Details Recorded Time Finding of pattern of menstrua l cycle Completed 201509/22/2021 Menometro rrhagia;R ecorded Elsewhere : No Locati on: [facility] So urce: EHR Chron ic: N Practic e ID: [id number] Bill able Time: 10:30:00 AM Tanika Silver null, [facility] 2 15:03:[address] Concept Completed 201709/22/2021 Encntr for routine child health exam w/o abnormal findings; Recorded Elsewhere : No Locati on: [facility] So urce: EHR Chron ic: N Practic e ID: [id number] Bill able Time: 10:30:00 AM Tanika boyce [facility] 2 15:03:31 Localize d swelling , mass and lump, neck Completed 201709/22/2021 Localized swelling, mass and lump, neck;Raghavendra rded Elsewhere : No Locati on: [facility] So urce: EHR Chron ic: N Practic e ID: [id number] Bill able Time: 10:30:00 AM Tanika Silver [facility] 2 15:03:[address] Concept Completed 201709/22/2021 Well woman check w/o abnormal finding;R ecorded Elsewhere : No Locati on: [facility] So urce: EHR Chron ic: N Practic e ID: 0001 Bill able Time: 10:30:00 AM Tanika boyce [facility] 2 15:03:31 Pelvic and perineal pain [id number] Completed 201709/22/2021 Pelvic and perineal pain;Raghavendra rded Elsewhere : No Locati on: [facility] So urce: EHR Chron ic: N Practic e ID: [id number] Bill able Time: 11:00:00 AM Tanika Silver [facility] 2 15:03:31 Insertio n of intraute rine contrace ptive device Completed 201709/22/2021 Encounter for insertion of intrauter ine contracep tive device;Re corded Elsewhere : No Locati on: [facility] So urce: EHR Chron ic: N Practic e ID: [id number] Bill able Time: 01:30:00 PM Tanika Silver [facility] 2 15:03:32 Contrace ptive sheath status [id number] Completed 201809/22/2021 Encounter for routine checking of intrauter ine contracep tive device;Re corded Elsewhere : No Locati on: [facility] So urce: EHR Chron ic: N Practic e ID: [id number] Bill able Time: 09:45:00 AM Tanika [facility] 2 15:03:31 Syphilis test finding [id number] Completed 201809/22/2021 Encounter for STD screening ;Recorded Elsewhere : No Locati on: [facility] So urce: EHR Chron ic: N Practic e ID: 0001 Bill able Time: 01:15:00 PM Tanika [facility] 2 15:03:32 Problem Notes None recorded. Procedures Surgical History Date Name Laterality Status Provider Name and Address Organization Details Recorded Time 3 Date of Last Pap Smear completed Kerri Delaney [facility] 03/12/2024 16:19:24 9 Thyroid Surgery completed Purnima Wallace [facility] 03/14/2022 17:28:33 Imaging Results None [...] Not Available Not Available Not Available azithromy wliliam 250 mg tablet TK 2 TS PO ON DAY 1, THEN TK 1 T PO D FOR 4 DAYS 03/14 completed Not Available Not Available Not Available clindamyc in HCl 75 mg capsule take 2 capsule by oral route every 6 hours 08/09 completed Prescrib ed Juan C e: Yes Loca tion: Jessica garcia [facility] [place] odify By: marcelina hernadez DateTime : [...] Prescrib ed Elsewher e: No Locat ion: [facility] odify By: janelle weir DateTime : 10/25/19 [...] Prescrib ed Elsewher e: No Locat ion: [facility] odify By: [email or web address] Garcia ncounter DateTime : 11/17/19 16 04:30:01 PM Not Available Not Available Not Available Lomedia 24 Fe 1 mg-20 mcg (24)/75 mg (4) tablet TAKE 1 TABLET BY ORAL ROUTE EVERY DAY 02/27 completed Prescrib ed Elsewher e: No Locat ion: [facility] odify By: janelle Garcia ncounter DateTime : [...] Updated DateTime 04/09/2024 175.26 cm 41.6 kg/m2 917608.05 g 136/86 mm[Hg] Tami Dubose [facility] 04/09/2024 16:37:02 Date Recorded Body height Body mass index (BMI) Body weight Systolic And Diastolic Provider Name and Address Organization Details Last Updated DateTime 10/11/2022 175.26 cm 46.1 kg/m2 136847.82 g 115/75 mm[Hg] Kerri Delaney [facility] 10/11/2022 11:30:12 Date Recorded Body height Body mass index (BMI) Body weight Systolic And Diastolic Provider Name and Address Organization Details Last Updated DateTime 03/12/2024 175.26 cm 40.3 kg/m2 687415.72 g 132/86 mm[Hg] Kerri Delaney [facility] 03/12/2024 16:17:16 Social History Question Answer Notes LastModified by Organizat ion Details LastModified Time Tobacco Smoking Status Never Smoker Purnima Wallace [facility] 03/14/2022 17:28:01 Are You Blind Or Do You Have Difficulty Seeing? No [email or web address] Information n ot available 03/14/2022 What Is Your Level Of Caffeine Consumption? Occasional [email or web address] Information not available 03/14/2022 In The 14 Days Before Symptom Onset, Have You Had Close Contact With A Laboratory-confirm ed COVID-19 While That Case Was Ill? No [email or web address] Information n ot available 03/14/2022 In The 14 Days Before Symptom Onset, Have You Had Close Contact With A Person Who Is Under Investigation For COVID-19 While That Person Was Ill? No Information not available 03/14/2022 Have You Been To An Area Known To Be High Risk For COVID-19? No [email or web address] Information not available 03/14/2022 Are You Deaf Or Do You Have Serious Difficulty Hearing? No [email or web address] Information not available 03/14/2022 What Type Of Diet Are You Following? REGULAR [email or web address] Information n ot available 03/14/2022 Have You Ever Been Counseled For Unhealthy Alcohol Use? No [email or web address] Information not available 03/14/2022 Do You Use Your Seat Belt Or Car Seat Routinely? Yes [email or web address] Information not available 03/14/2022 Do You Have Smoke And Carbon Monoxide Detectors In Your Home? Yes [email or web address] Information not available 03/14/2022 Do You Use Sunscreen Routinely? Yes [email or web address] Information not available 03/14/2022 Has Tobacco Cessation Counseling Been Provided? No [email or web address] Information not available 03/14/2022 Do You Have Difficulty Walking Or Climbing Stairs? No [email or web address] Information not available 03/14/2022 Sex: Unknown Functional Status Question Answer Note LastModified by Organizat ion Details LastModified Time Do you use any illicit or recreational drugs? No [email or web address] Information not available 03/14/2022 Do you or have you ever used any other forms of tobacco or nicotine? No [email or web address] Information not available 03/14/2022 What is your level of alcohol consumption? Occasional [email or web address] Information not available 03/14/2022 Are you able to walk independently without assistance or assistive devices? YESWOREST [email or web address] Information not available 03/14/2022 Are you able to care for yourself independently? Yes [email or web address] Information not available 03/14/2022 Do you have difficulty dressing, bathing, grooming, or toileting? No [email or web address] Information not available 03/14/2022 What is your exercise level? Occasional [email or web address] Information not available 03/14/2022 Mental Status Question Answer Note LastModified by Organization D etails LastModified Time Do you feel stressed (tense, restless, nervous, or anxious, or unable to sleep at night)? [id number] [email or web address] Information not available 03/14/2022 Family History Relationship Description Onset Age of this Age Resolved Age Notes LastModified by Organization Details LastModified Time Mother Asthma [email or web address] Not available 11/26/2019 16:58:51 Paternal Grandfather Diabetes mellitus [email or web address] Not available 11/25 16:59:00 Paternal Grandfather Hypertensive disorder [email or web address] Not available 11/25 16:59:09 Paternal Grandfather Heart disease [email or web address] Not available 11/25 16:59:22 Paternal Grandfather Malignant neoplasm of colon [id number] Not available 11/25 16:59:34 Maternal Grandmother Heart disease Not available 11/25 16:59:55 Maternal Grandmother Hypertensive disorder [email or web address] Not available 11/25 17:00:08 Maternal Grandfather Heart disease [email or web address] Not available 11/25 17:00:21 Father Asthma [email or web address] Not available 11/26/2019 17:00:34 Paternal Grandmother Malignant neoplasm of breast [email or web address] Not available 2024 16:37:55 Medical History Condition [...] ICD10 Code Diagnosis IMO Codes Diagnosis Note [id number] Magali Gleason [facility] [address] [address] 03/23/2023 13:50:24 03/27/2023 09:10:53 [id number] [facility] [address] [place] [address] 09/22/2021 15:31:57 09/23/2021 15:52:47 Gynecologic examination [id number] Z01.419 Take Calcium with Vitamin D 1200mg [...] Screen naRoutine Labs na Pain in pelvis [id number] R10.2 Today we agreed to update vaginal [...] All questions answered to patient satisfacti on. [id number] Cristian Ruelas MD [facility] [address] [address] 09/27/2021 16:41:33 09/27/2021 17:24:05 Pain in pelvis [id number] R10.2 [id number] [facility] [address] [address] 10/06/2021 15:30:10 10/06/2021 16:12:13 Pain in pelvis 66022515 R10.2 Reviewed US which was wnl.Her pelvic pain sx's have resolvedPo ssible cyst had ruptured prior to USMonitor for now Malaise and fatigue [id number] 75784 R23.2 Voices that she is generally not [...] taken today.Offe red to drive her to [facility].S he declined.V oices that she [...] counseling and review of plan of care. [id number] Magali Gleason [facility] [address],[place] [address] 11/23/2021 16:35:11 11/23/2021 17:11:18 Vaginitis [id number] N76.0 Suspect BV & yeastWill treat for BV & yeastCall if sx's worsenIf swab was sent will be notified via portal unless otherwise indicated. Time spent in visit is a total of 15 mins with at least 50% of visit consisting of counseling and review of plan of care. [id number] [facility] [address],[place] [address] 03/14/2022 17:01:44 03/15/2022 15:51:39 Urinary symptoms [id number] R39.9 Vaginitis [id number] N76.0 Suspect yeastWill treat yeastCall if sx's worsenIf swab was sent will be notified via portal unless otherwise indicated. Counseling /Therapist resources given including psychology today.Mobile[employer]force Time spent in visit is a total of 15 mins with at least 50% of visit consisting of counseling and review of plan of care. [id number] Magali Gleason [facility] [address],[place] [address] 10/11/2022 11:18:54 10/11/2022 11:49:53 Dysuria [id number] R30.0 Suspect UTISent cultureTre atedCounse led on medication R/B's, Most common side effects, & use. All questions were answered to patient satisfacti on. Gynecologi c examination [id number] Z01.419 Take Calcium with Vitamin D 1200mg [...] c Screen discussedC olon Screen naDexa Screen naRkaiser permanente [facility] na [id number] Cristian Ruelas MD [facility] [address] [address] 02/14/2024 16:57:53 02/14/2024 17:33:10 Pain in pelvis [id number] R10.2 [id number] Cristian Ruelas MD [facility] [address] [address] 03/12/2024 15:30:34 03/13/2024 09:49:23 Pain in pelvis [id number] R10.2 23-year-ol d female with multiple concerns. [...] hemorrhage and infection. Abnormal u terine bleeding [id number] 9100 N93.9 Sexually t ransmitted infectious disease [id number] [id number] Cristian Ruelas MD [facility] [address] [address] 04/09/2024 16:07:43 04/11/2024 14:25:38 Pain in pelvis [id number] R10.2 this patient is a 23-year-ol d [...] Kelsey Member ID Guarantor Name 04/14/2024 [place] Mervat E Werner [id number] Mervat E Werner 04/14/2024 1 *SELF PAY* [place] vivien E Werner 05/28/2024 1 [place] [facility] Mervat E Werner [id number] Mervat E Werner 04/03/2024 1 [facility] - DOS ON OR AFTER 20 (MEDICAID REPLACEMENT - HMO) Mervat Werner [id number] Mervat E Werner Notes Date Note Type [...] smears. Magali Gleason, [facility] [address], [place], [address], [facility] 10/11/2022 11:48:59 03/12/20 24 text/ht ml [...] infection. Cristian Ruelas MD [address], [place], [address], [facility] 03/12/2024 19:07:15 04/09/19 25 text/ht ml [...] infection. Cristian Ruelas MD [address], [place], [address], [facility] 04/10/2024 22:44:59 OBGyn Episode No OBEpisode recorded.
[2025-03-26 22:43] LABS: Hematocrit 42.6 % (37.0-47.0); Hemoglobin 14.5 g/dL (12.0-15.0); Immature Granulocyte Percent A 0.4 % (0-0.5); Lymphocytes Absolute Auto 2.95 K/mm3 (0.9-3.2); Mean Corpuscular HGB Conc 34.0 g/dl (32-36); Mean Corpuscular Hemoglobin 31.9 pg (26-34); Mean Corpuscular Volume 93.6 fl (80-100); Nucleated Red Blood Cells Absolute Auto 0.000 K/mm3 (0.0-0.012); Nucleated Red Blood Cells Perc 0.0 % (0.0-0.2); Platelet Count Result 448 k/mm3 (150-375); Red Blood Count 4.55 M/mm3 (4.2-5.4); White Blood Count 9.8 K/mm3 (4.5-10.0)
[2025-03-26 22:43] LABS: BEDSIDEPREGUCG Negative (Negative)
[2025-03-26 22:56] LABS: Alanine Aminotransferase 29 U/L (6-35); Albumin Level 4.5 g/dL (3.5-5.1); Alkaline Phosphatase 57 U/L (38-126); Anion Gap 10 mmol/L (4-12); Aspartate Amino Transferase 32 U/L (14-36); Bilirubin,Total 0.7 mg/dL (0.2-1.3); Blood Urea Nitrogen 12 mg/dL (7-17); Calcium 9.3 mg/dL (8.4-10.2); Carbon Dioxide 28 mmol/L (22-30); Chloride 100 mmol/L (98-107); Estimated CRCL calculation 115 ml/min; Estimated Glomerular Filt Rate > 60; Glucose 95 mg/dL (65-110); Lipase 114 U/L (23-300); Potassium 3.9 mmol/L (3.4-5.0); Sodium 138 mmol/L (137-145); Total Protein 8.1 g/dL (6.3-8.2)
[2025-03-27 00:42] LABS: BEDSIDEPREGUCG Negative (Negative)
[2025-03-27 00:43] LABS: Add Urine Microscopic? NO; Appearance Urine Clear (Clear); Glucose Urine UA Negative (Negative); Leukocyte Esterase Ur Negative LEU/UL (Negative); Nitrate Urine Negative (Negative); Specific Grav Ur 1.008 (1.001-1.035)
[2025-03-27] MEDS: ACETAMINOPHEN 500 MG TABLET 1000 MG PO (01:41)
[2025-03-27] MEDS: ONDANSETRON HCL ODT 4 MG TABLET PO (01:42)
--- NOTE | 2025-03-27 03:55 | ED_ITS ---
HPI - Abdominal Pain General Chief Complaint: Abdominal Pain Stated Complaint: blood in urine, vomiting blood Time Seen by Provider: 03/27/25 00:36 History of Present Illness HPI narrative: 24-year-old female presenting with concerns for abdominal pain, vomiting, and diarrhea for the last few days. She is also reporting a headache and urinary symptoms. Denies chest pain/shortness of breath and fevers/chills. She reports a significant history of seizures for which she takes Keppra. Related Data Home Medications ?Medication ?Instructions ?Recorded ?Confirmed ?Last Taken ?Type cyanocobalamin (vitamin B-12) 500 500 mcg PO HS 03/21/25 Unknown History mcg tablet pregabalin 100 mg capsule 100 mg PO TID 02/04/2503/21 Unknown History tramadol 50 mg tablet 50 mg PO PRN 02/04/25 Unknown History Vitamin D 10,000 units BYMOUTH DAILY 1 05/22/24 03/21/25 Unknown History atenolol 50 mg tablet 50 mg PO HS 03/21/25 5 Unknown History levothyroxine 200 mcg tablet 200 mcg PO .am 03/21/25 1 05/22/24 Unknown History levothyroxine 50 mcg tablet 50 mcg PO .am 03/21/25 Unknown History (Levoxyl) riboflavin (vitamin B2) 25 mg 25 mg PO DAILY 03/21/25 03/21/25 Unknown History tablet (Vitamin B-2) Allergies Allergy/AdvReac Type Severity Reaction Status Date / Time adhesive tape Allergy Intermediate Rash Verified 03/21/25 19:33 latex Allergy Mild Rash Verified 03/21/25 19:33 lactose AdvReac Intermediate Diarrhea Verified 03/21/25 19:33 amoxicillin AdvReac Hives Verified 03/21/25 19:33 Review of Systems 2 Review of Systems: All systems reviewed & are unremarkable except as noted in HPI and below PMFSH Past Medical History Medical History (Updated 03/27/25 @ 03:12 by PJ Mckinney) FHx: thyroid cancer Lateral malleolar fracture Binge eating disorder Has less than high school diploma OCD (obsessive compulsive disorder) History of thyroid cancer Suicidal ideation Arthritis Endometriosis Seizures Tachycardia Hypertension Hypothyroidism Depression Anxiety Thyroid cancer Surgical History Surgical History H/O partial thyroidectomy Right, 04/10/2018 Family History Family History Mother Asthma Depression Father Hypertension Depression Alcoholism Grandparent Breast cancer Social History Social History Smoking packs per day: 1 Smoking cigarettes per day: 20.0 Years smoked: 4 Smoking pack-years: 4.00 Smoking status: Current every day smoker Tobacco type: e-cigarettes/vaping Smoking end date: 04/02/20 Additional smoking assessment comments: Vapes now 8 years Alcohol intake: never Substance use: current Substance use type: marijuana and other Other substance usage details: Vapes and Marijuana smokes daily Lack of Transportation: No Lack of Food: Sometimes True Current Housing: I Have Housing Concerned About Future Housing: No Difficulty Paying Gas/Electric Bills: No Difficulty Paying for Meds: No Currently Unemployed: No Education: Grade School Difficulty w/ Childcare or Family Care: No Living arrangements: with family Additional living arrangements comments: Brother Spiritual care concerns: No Exam 2 Narrative: GENERAL: Well-appearing, well-nourished, and in no acute distress. HEAD: Normocephalic, atraumatic. EYES: PERRLA and EOMI. ENT: Nares clear, no rhinorrhea or epistaxis. Mucous membranes moist. Oropharynx without tonsillar hypertrophy exudate or other lesions. Bilateral TMs pearly hess non-bulging NECK: Supple. No adenopathy or masses. No carotid bruits or JVD CHEST: Clear to auscultation. No respiratory distress. No wheezes rales or rhonchi HEART: Regular rate and rhythm. No murmur heard. Normal peripheral pulses. ABDOMEN: Soft, nontender, nondistended, normal active bowel sounds. EXTREMITIES: Normal range of motion. No edema. SKIN: Warm, dry, no rash. NEURO: No focal deficits. Alert and oriented x3. PSYCH: Normal mood and affect Course Vital Signs Vital signs: Vital Signs Temperature 98.6 F 03/26/25 22:24 Respiratory Rate 16 03/26/25 22:24 Blood Pressure 134/87 03/26/25 22:24 Pulse Oximetry 99 03/26/25 22:24 Oxygen Delivery Room Air 03/26/25 22:24 Temperature 98.6 F 03/26/25 22:24 Respiratory Rate 16 03/26/25 22:24 Blood Pressure 134/87 03/26/25 22:24 Pulse Oximetry 99 03/26/25 22:24 Oxygen Delivery Room Air 03/26/25 22:24 [facility] Narrative Medical decision making narrative: 24-year-old female presenting with concerns for abdominal pain, vomiting, and diarrhea for the last few days. She is also reporting a headache and urinary symptoms. Denies chest pain/shortness of breath and fevers/chills. She reports a significant history of seizures for which she takes Keppra. Upon my initial assessment patient appears nontoxic with stable vitals. Patient's abdomen is soft without significant pain or signs of surgical abdomen on serial exams. Hemoccult negative. Low risk Lachelle-Blatchford and [place] scores for upper and lower GI bleed concerns. Labs are stable and within normal limits. UA is without signs of a UTI. Imaging felt to be not indicated at this time. Patient's symptoms improved with Zofran and Tylenol. Will plan to discharge home with anti-emetics and strict return precautions. Differential diagnosis and treatment plan were discussed with the patient. Patient agrees with discussion and after shared medical decision making agrees with plan of care. All questions were answered to the patient's satisfaction. The patient is appropriate for outpatient treatment and follow-up. Differential Diagnosis Differential Diagnosis: Differential diagnostic considerations for acute abdominal pain include surgical abdominal etiology, ischemic bowel, inflammatory bowel disease, gastritis, PUD, gastroenteritis, cardiac etiology, appendicitis, diverticulitis, bowel obstruction, kidney stone, pyelonephritis, abdominal aortic aneurysm, pancreatitis, constipation, endometriosis. Medical Records I have reviewed the following patient records and this information was taken into consideration when formulating the assessment and plan.: previous labs, previous ER visits, previous hospitalizations and previous clinic visits Lab Data [facility] Lab Attestation statement: I personally reviewed the patient's lab results. 03/26/25 22:37 03/26/25 22:37 Labs: Lab Results 03/26/25 03/26/25 03/27/25 Range/Units 22:37 22:41 00:35 WBC 9.8 (4.5-10.0) K/mm3 RBC 4.55 (4.2-5.4) M/mm3 Hgb 14.5 (12.0-15.0) g/dL Hct 42.6 (37.0-47.0) % MCV 93.6 (80-100) fl MCH 31.9 (26-34) pg MCHC 34.0 (32-36) g/dl RDW 12.4 (11.5-14.5) % Plt Count 448 H (150-375) k/mm3 MPV 9.4 (7.4-10.4) fl Immature Gran % (Auto) 0.4 (0-0.5) % Neut % (Auto) 49.6 (45.5-73.1) % Lymph % (Auto) 30.1 (18.3-44.2) % [place] % (Auto) 12.8 H (2.6-8.5) % Eos % (Auto) 6.1 H (0-4.4) % Baso % (Auto) 1.0 (0.2-1.2) % Lymph # (Auto) 2.95 (0.9-3.2) K/mm3 [place] # (Auto) 1.3 H (0.1-0.6) K/mm3 Eos # (Auto) 0.6 H (0-0.3) K/mm3 Baso # (Auto) 0.1 (0.0-0.1) K/mm3 Abs Immat Gran (auto) 0.04 H (0.00-0.031) K/mm3 Absolute Neuts (auto) 4.9 (1.3-6.7) K/mm3 Absolute Nucleated RBC 0.000 (0.0-0.012) K/mm3 Nucleated RBC % 0.0 (0.0-0.2) % Sodium 138 (137-145) mmol/L Potassium 3.9 (3.4-5.0) mmol/L Chloride 100 (98-107) mmol/L Carbon Dioxide 28 (22-30) mmol/L Anion Gap 10 (4-12) mmol/L BUN 12 (7-17) mg/dL Creatinine 1.05 H (0.7-1.0) mg/dL Estim Creat Clear Calc 115 ml/min Estimated GFR > 60 (59 - ) Glucose 95 (65-110) mg/dL Calcium 9.3 (8.4-10.2) mg/dL Total Bilirubin 0.7 (0.2-1.3) mg/dL AST 32 (14-36) U/L ALT 29 (6-35) U/L Alkaline Phosphatase 57 (38-126) U/L Total Protein 8.1 (6.3-8.2) g/dL Albumin 4.5 (3.5-5.1) g/dL Lipase 114 (23-300) U/L Urine Color Yellow (Yellow) Urine Appearance Clear (Clear) Urine pH 6.5 (5.0-9.0) Ur Specific [place] 1.008 (1.001-1.035) Urine Protein Negative (Negative) mg/dL Urine Glucose (UA) Negative (Negative) mg/dL Urine Ketones Negative (Negative) mg/dL Ur Blood (Man) Negative (Negative) Urine Nitrate Negative (Negative) Urine Bilirubin Negative (Negative) Urine Urobilinogen 0.2 (<2.0) mg/dL Leukocyte Esterase Rfl Negative (Negative) PERFECTO/UL POC Urine HCG, Qual Negative (Negative) 03/27/25 Range/Units 00:39 WBC (4.5-10.0) K/mm3 RBC (4.2-5.4) M/mm3 Hgb (12.0-15.0) g/dL Hct (37.0-47.0) % MCV (80-100) fl MCH (26-34) pg MCHC (32-36) g/dl RDW (11.5-14.5) % Plt Count (150-375) k/mm3 MPV (7.4-10.4) fl Immature Gran % (Auto) (0-0.5) % Neut % (Auto) (45.5-73.1) % Lymph % (Auto) (18.3-44.2) % Canadian % (Auto) (2.6-8.5) % Eos % (Auto) (0-4.4) % Baso % (Auto) (0.2-1.2) % Lymph # (Auto) (0.9-3.2) K/mm3 [place] # (Auto) (0.1-0.6) K/mm3 Eos # (Auto) (0-0.3) K/mm3 Baso # (Auto) (0.0-0.1) K/mm3 Abs Immat Gran (auto) (0.00-0.031) K/mm3 Absolute Neuts (auto) (1.3-6.7) K/mm3 Absolute Nucleated RBC (0.0-0.012) K/mm3 Nucleated RBC % (0.0-0.2) % Sodium (137-145) mmol/L Potassium (3.4-5.0) mmol/L Chloride (98-107) mmol/L Carbon Dioxide (22-30) mmol/L Anion Gap (4-12) mmol/L BUN (7-17) mg/dL Creatinine (0.7-1.0) mg/dL Estim Creat Clear Calc ml/min Estimated GFR (59 - ) Glucose (65-110) mg/dL Calcium (8.4-10.2) mg/dL Total Bilirubin (0.2-1.3) mg/dL AST (14-36) U/L ALT (6-35) U/L Alkaline Phosphatase (38-126) U/L Total Protein (6.3-8.2) g/dL Albumin (3.5-5.1) g/dL Lipase (23-300) U/L Urine Color (Yellow) Urine Appearance (Clear) Urine pH (5.0-9.0) Ur Specific [place] (1.001-1.035) Urine Protein (Negative) mg/dL Urine Glucose (UA) (Negative) mg/dL Urine Ketones (Negative) mg/dL Ur Blood (Man) (Negative) Urine Nitrate (Negative) Urine Bilirubin (Negative) Urine Urobilinogen (<2.0) mg/dL Leukocyte Esterase Rfl (Negative) PERFECTO/UL POC Urine HCG, Qual Negative (Negative) Discharge Plan Discharge Clinical Impression: Abdominal pain, Vomiting, Diarrhea Patient Disposition: Home Condition: Stable Instructions: Abdominal Pain (ED) Additional Instructions: Return to the ER if you experience fever, abdominal pain with nausea and vomiting, you are unable to keep down liquids or solids, pain or burning with urination, blood in the urine or any other symptoms that are concerning to you. Take anti-inflammatories (Aleve, Ibuprofen, Naproxen, etc) and Tylenol as needed for pain. Small frequent meals. Eagle diet. Hydrate. Take anti-nausea medication as prescribed. Follow up with primary care doctor. Patient Language: Chinese Prescriptions: New ondansetron 4 mg tablet,disintegrating 4 mg PO Q6H PRN (Reason: nausea and vomiting) Qty: 20 0RF No Action famotidine 40 mg tablet 40 mg PO DAILY Qty: 30 6RF sertraline 200 mg capsule 200 mg PO DAILY Qty: 30 6RF Vraylar 1.5 mg capsule 1.5 mg PO QHS Qty: 30 1RF Rx Instructions: Weaning off Latuda. Start taking one Capsule nightly. tramadol 50 mg tablet 50 mg PO PRN cyanocobalamin (vitamin B-12) 500 mcg tablet 500 mcg PO HS pregabalin 100 mg capsule 100 mg PO TID acetaminophen 500 mg capsule 1,000 mg PO Q6H PRN (Reason: pain) Qty: 30 0RF riboflavin (vitamin B2) [Vitamin B-2] 25 mg tablet 25 mg PO DAILY Vitamin D 10,000 units BYMOUTH DAILY Patient Comments: Pt. states she takes 10,000 units of Vitamin D by mouth Daily. levothyroxine [Levoxyl] 50 mcg tablet 50 mcg PO .am levothyroxine 200 mcg tablet 200 mcg PO .am atenolol 50 mg tablet 50 mg PO HS levetiracetam [Keppra] 500 mg tablet 500 mg PO BID Qty: 60 0RF Follow-up/Referrals: Rich Espinoza MD [Primary Care Provider, Family Practice]
== END 2025-03-27 03:43 | disposition home or self-care (01) ==
PROVIDERS: Student in an Organized Health Care Education/Training Program; PCP Family Medicine
DX: R10.9 Unspecified abdominal pain (principal); R11.10 Vomiting, unspecified; R19.7 Diarrhea, unspecified; F42.9 Obsessive-compulsive disorder, unspecified; I10 Essential (primary) hypertension; Z85.850 Personal history of malignant neoplasm of thyroid; E89.0 Postprocedural hypothyroidism; F17.290 Nicotine dependence, other tobacco product, uncomplicated
CPT/HCPCS: 36415; 80053; 81003; 81025; 83690; 85025; 99283; A9270